=== PATIENT | female | born 1955 | race Two or more races ===

== ENCOUNTER 2020-04-25 13:49 | Outpatient (REF) | payer OTHER, SELFPAY ==
--- NOTE | 2020-04-25 | MR_ITS ---
EXAMINATION: MRI RIGHT SHOULDER WITHOUT CONTRAST CLINICAL INFORMATION: Internal derangement of the shoulder. COMPARISON: None. TECHNIQUE: MR images of the shoulder were obtained on a 1.5 Pau high-field strength scanner without intravenous contrast material. FINDINGS: ROTATOR CUFF: A full-thickness tear of the supraspinatus tendon measures 2.6 cm AP, extending into the anterior fibers of the infraspinatus tendon. The torn margin of the supraspinatus tendon is retracted medially by 2.5 cm to the level of the humeral head apex. The infraspinatus component of the tear is partial-thickness, articular-sided, sparing the majority of the tendon cross-section. The supraspinatus tendon tear extends anteriorly into the coracohumeral ligament. A partial-thickness articular-sided tear of the subscapularis tendon measures 0.8 cm craniocaudal and 0.8 cm longitudinal, involving at least two-thirds of the tendon thickness. There is mild grade 1 fatty replacement at the myotendinous junctions of the rotator cuff diffusely without significant loss of muscle bulk. BICEPS: Normal. CORACOACROMIAL ARCH: The undersurface of the acromion is curved with a small anterior subacromial spur. Mild acromioclavicular osteoarthritis. A small volume of fluid is present in the subacromial-subdeltoid bursa. LABRUM/CAPSULE: The labrum is diminutive posteriorly, likely due to a combination of developmental variation and superimposed degenerative fraying. This fraying is most notable superiorly. No discrete tears. Joint capsule is unremarkable. GLENOHUMERAL JOINT/MARROW: Small glenoid osteophytes are identified. There is mild nonuniform partial-thickness cartilage loss at the humeral head superomedially. Cortical irregularity and subcortical cystic changes of the tuberosities are due to overlying tendinopathy. IMPRESSION: 1. 2.6 x 2.5 cm (AP x longitudinal) full-thickness insertional tear of the supraspinatus tendon with involvement of the anterior undersurface fibers of the infraspinatus tendon as well as the coracohumeral ligament. No significant loss of muscle bulk. 2. Small partial-thickness articular-sided tear of the subscapularis tendon. 3. Small anterior subacromial spur. 4. Mild acromioclavicular and glenohumeral osteoarthritis.
== END 2020-04-25 13:50 | disposition home or self-care (01) ==
LOC: HO.MRI 13:49
PROVIDERS: PCP Internal Medicine; Visit Provider Orthopaedic Surgery
DX: M24.812 Other specific joint derangements of left shoulder, not elsewhere classified (principal)
CPT/HCPCS: 73221

== ENCOUNTER 2020-04-28 10:36 | Outpatient (REF) | payer OTHER, SELFPAY ==
[2020-04-28 12:42] LABS: Blood Urea Nitrogen 19 mg/dL (9-16); Estimated Glomerular Filt Rate > 60
== END 2020-04-28 10:37 | disposition home or self-care (01) ==
LOC: HO.CT 10:36
PROVIDERS: Internal Medicine Endocrinology, Diabetes & Metabolism; Visit Provider Internal Medicine
DX: D35.00 Benign neoplasm of unspecified adrenal gland (principal)
CPT/HCPCS: 82565; 84520

== ENCOUNTER 2020-05-02 09:45 | Outpatient (REF) | payer OTHER, SELFPAY ==
--- NOTE | 2020-05-02 09:48 | CT_ITS ---
EXAMINATION: CT ABDOMEN WITHOUT AND WITH CONTRAST CLINICAL INFORMATION: Adrenal protocol COMPARISON: None TECHNIQUE: Contiguous axial thin section helical images of the abdomen were performed before and after the administration of oral contrast and 85 mL of Ultravist 370 intravenous contrast. The data set was reformatted in the coronal and sagittal planes and reviewed on an independent workstation. This CT examination was performed using dose optimization techniques as appropriate, variously including the following: *Automated exposure control *Adjustment of mA and/or kV according to patient size (this includes techniques or standardized protocols for targeted exams where dose is matched to indication/reason for exam; i.e. extremities or head) *Use of iterative reconstruction technique DLP: 1229 mGy-cm FINDINGS: The lung bases are clear. The heart size is normal. The liver is normal size, shape and attenuation. Postcontrast no enhancing mass seen. There is a punctate hypodensity right hepatic lobe image 29/7 likely a tiny cyst. No intrahepatic ductal dilatation seen. The gallbladder is nonvisualized likely contracted. The spleen is unremarkable with small accessory splenule on image 31/7. The pancreas is unremarkable. On noncontrast exam, there is bilateral adrenal enlargement with mild lobulation of the right adrenal gland. It measure 27 and 10 Hounsfield units in the right and left adrenal gland. Immediate postcontrast images, there is mild enhancement with right adrenal gland measuring 88 Hounsfield unit and left adrenal gland measuring 62 Hounsfield units. On 10 minute delayed images, the right adrenal gland measures 50 Hounsfield units and the left adrenal gland measures 30 Hounsfield units. The right adrenal gland absolute washout measures 62.3% and relative washout of 43.2% suggestive of benign adenoma. On the left, the absolute washout is 61.5% and the relative washout is 51.6% suggestive of adenoma as well. There are no radiopaque renal calculi. Postcontrast, there is symmetrical bilateral nephrograms with likely a small punctate cyst at the corticomedullary junctions in the upper and lower poles of left kidney. There is good opacification of kidney, pelvis, and proximal ureters without any intraluminal filling defect. Visualized colon and small bowel loops are unremarkable. There is L2 and L3 posterior hardware for fusion. Visualized vertebral heights and alignment is normal. No lytic or sclerotic process seen. CT/CT abdomen wo/w con IMPRESSION: 1. Bilateral adrenal enlargement with probable right adrenal nodularity. Pre and postcontrast adrenal protocol reveals benign etiology such as adenoma on the right and normal pattern on the left. 2. The gallbladder is not visualized and likely surgically removed.
[2020-05-02] MEDS: iohexoL 350 MG/ML 100 ML INFUS..BTL IV (11:52)
== END 2020-05-02 09:46 | disposition home or self-care (01) ==
LOC: HO.CT 09:45
PROVIDERS: Visit Provider Internal Medicine
DX: D35.00 Benign neoplasm of unspecified adrenal gland (principal)
CPT/HCPCS: 74170

== ENCOUNTER 2020-05-04 10:44 | Outpatient (REF) | payer OTHER, SELFPAY ==
--- NOTE | 2020-05-04 11:31 | PM.OP ---
Brief Operative Note Date of procedure: 05/04/20 Surgeon: Shell Garg, DO This is doctor Shell Garg. This is an ultrasound-guided fine-needle aspiration report. Patient name: Sabrina Mcqueen : 1955 Date of Examination: 05/04/2020 Referring Physician Is: PCP Indication: Multinodular Thyroid Porcedure: Procedure was explained to the patient. Alternatives, the risk and benefits were discussed. Written consent was obtained. A time-out was also obtained. After sterile preparation, fine-needle aspiration of a Left Mid Pole 2.4 cm thyroid nodule was performed using direct ultrasound guidance to confirm accurate needle placement. Four aspirations were made using 27 gauge needles. Samples were submitted for cytology. 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 The patient tolerated the procedure well. Aftercare instructions were provided. Impression: Uncomplicated fine needle aspiration biopsy of a L Mid Pole 2.4 cm thyroid nodule under ultrasound guideance. Estimated blood loss (mL): 0
== END 2020-05-04 10:45 | disposition home or self-care (01) ==
LOC: HO.US 10:44
PROVIDERS: PCP Internal Medicine; Visit Provider Internal Medicine
DX: M75.102 Unspecified rotator cuff tear or rupture of left shoulder, not specified as traumatic (principal); E04.2 Nontoxic multinodular goiter
CPT/HCPCS: 10005; 88172; 88173; 99212

== ENCOUNTER → 2020-05-31 08:58 | Outpatient (BNVA) | payer OTHER, SELFPAY | PROVIDERS: PCP Internal Medicine; Referring Provider Internal Medicine; Visit Provider Internal Medicine | DX: Z76.89 Persons encountering health services in other specified circumstances (principal) ==

== ENCOUNTER 2020-06-06 13:10 | Outpatient (REF) | payer OTHER, SELFPAY | END 2020-06-06 13:11 | disposition home or self-care (01) | LOC: HO.LAB 13:10 | PROVIDERS: Visit Provider Internal Medicine | DX: Z20.828 Contact with and (suspected) exposure to other viral communicable diseases (principal) | CPT/HCPCS: C9803; U0003 ==

== ENCOUNTER 2020-07-14 10:05 | Outpatient (REF) | payer OTHER, SELFPAY ==
--- NOTE | 2020-07-14 10:10 | XR_ITS ---
EXAMINATION: XR LUMBOSACRAL SPINE CLINICAL INFORMATION: Low back pain COMPARISON: Previous x-ray December 2012 and MRI of the lumbar spine most recent August 2017 TECHNIQUE: Three views of the lumbosacral spine. FINDINGS: There is mild curvature of the lumbar sacral spine to the right. Bone alignment is otherwise normal. No fracture or dislocation is seen. There is posterior fusion hardware with interpedicular screws and disc interspace at L2-L3. Orthopedic hardware is intact. Disc spaces are otherwise normal. There is lower lumbar spine facet arthritis. XR/XR lumbar spine 2-3V IMPRESSION: Postoperative change at L2-L3. Mild curvature of the lumbar sacral spine to the right. Lower lumbar spine facet arthritis.
== END 2020-07-14 10:06 | disposition home or self-care (01) ==
LOC: HO.XRAY 10:05
PROVIDERS: Visit Provider Internal Medicine
DX: M54.5 Low back pain (principal)
CPT/HCPCS: 72100

== ENCOUNTER 2020-07-25 10:39 | Day surgery (SDC) | payer OTHER, SELFPAY ==
[2020-07-13 14:11] VITALS: BMI 33.0
--- NOTE | 2020-07-18 11:01 | P.CONAN_ITS ---
Documented by User: Catherine Anand 07/18/20 11:07 HPI - Anesthesia Eval Consult details Narrative: 64yo F for Left Arthroscopic Rotator Cuff Repair s/p Right shoulder 07/2018 with GA-LMA 4, brachial plexus block PMFSH Past Medical History Medical History Anxiety Asthma Depression Fibromyalgia Low back pain Non-toxic multinodular goiter Otitis externa Right ear pain Rotator cuff tear, left Throat pain Family History Family History Father Diabetes Mother Medical history unknown Surgical History Surgical History History of cholecystectomy History of hysterectomy History of laminectomy (~2009) Status post right rotator cuff repair (~07/26/18) Social History Social History Smoking Status: Never smoker Second Hand Smoke Exposure: No Use of substances other than those prescribed or required for medical reasons: No Advance Directives: No Advance Directives Information Provided: No Advance Directives on File: No Current occupational status: unemployed Current occupation: right handed Meds Allergies Allergy/AdvReac Type Severity Reaction Status Date / Time codeine [Tylenol-Codeine #3] Allergy Intermediate Rash Verified 07/16/20 12:38 morphine Allergy Intermediate rash and Verified 07/16/20 12:38 itching Nubain Allergy Intermediate Rash Verified 07/16/20 12:38 oxycodone [Percocet] Allergy Intermediate Rash Verified 07/16/20 12:38 propoxyphene Allergy Intermediate Rash Verified 07/16/20 12:38 [From Darvocet-N 100] tramadol [Ultram] Allergy Intermediate Rash Verified 07/16/20 12:38 ibuprofen [From Motrin] Allergy Mild RASH Verified 07/16/20 12:38 montelukast [Singulair] Allergy Unknown Unknown Verified 07/16/20 12:38 Home Medications Medication Instructions Recorded Confirmed Type ergocalciferol (vitamin D2) 1,250 1,250 mcg PO QWEEK 05/26/20 07/13/20 History mcg (50,000 unit) capsule loratadine 10 mg tablet 10 mg PO DAILY 05/26/20 07/13/20 History lorazepam 0.5 mg tablet 0.5 mg PO TID PRN 05/26/20 07/13/20 History methocarbamol 750 mg tablet 750 mg PO TID PRN 05/26/20 07/13/20 History pregabalin 150 mg capsule 150 mg PO TID 05/26/20 07/13/20 History tizanidine 4 mg tablet 4 mg PO TID 05/26/20 07/13/20 History albuterol sulfate 90 mcg/actuation 2 puff INHALATION Q6H PRN g 05/31/20 07/13/20 History aerosol inhaler albuterol sulfate 2.5 mg CONTINUOUS NEBULIZATION Q6H 07/12/20 07/12/20 History PRN ml hydroxyzine HCl 25 mg tablet 25 mg PO TID PRN 07/12/20 07/13/20 History nortriptyline 25 mg capsule 25 mg PO BEDTIME cap 07/12/20 07/13/20 History Exam Exam Date and Time: July 18, 2020 1101 Height,Weight and Vital Signs: Height 5 ft 6 in Weight 92.986 kg Pertinent Lab Results Pertinent Lab Results: Laboratory Tests 07/19/19 03/24/20 04/28/20 09:30 10:32 11:38 WBC 5.1 Hgb 14.4 Hct 43.0 Plt Count 240 Sodium 136 Potassium 4.8 Chloride 100 BUN 19 H Creatinine 0.80 Laboratory Tests 03/24/20 10:32 Free T4 1.02 TSH 3rd Generation 1.56 Assessment and Plan Assessment Anesthesia Assessment: Chart Reviewed Documented by User: Familia Castrejon MD 07/25/20 11:09 [facility] Past Medical History Medical History Anxiety Asthma Depression Fibromyalgia Low back pain Non-toxic multinodular goiter Otitis externa Right ear pain Rotator cuff tear, left Throat pain Family History Family History Father Diabetes Mother Medical history unknown Surgical History Surgical History History of cholecystectomy History of hysterectomy History of laminectomy (~2009) Status post right rotator cuff repair (~07/26/18) Social History Social History Smoking Status: Never smoker Second Hand Smoke Exposure: No Use of substances other than those prescribed or required for medical reasons: No Advance Directives: No Advance Directives Information Provided: No Advance Directives on File: No Current occupational status: unemployed Current occupation: right handed Meds Allergies Allergy/AdvReac Type Severity Reaction Status Date / Time codeine [Tylenol-Codeine #3] Allergy Intermediate Rash Verified 07/16/20 12:38 morphine Allergy Intermediate rash and Verified 07/16/20 12:38 itching Nubain Allergy Intermediate Rash Verified 07/16/20 12:38 oxycodone [Percocet] Allergy Intermediate Rash Verified 07/16/20 12:38 propoxyphene Allergy Intermediate Rash Verified 07/16/20 12:38 [From Darvocet-N 100] tramadol [Ultram] Allergy Intermediate Rash Verified 07/16/20 12:38 ibuprofen [From Motrin] Allergy Mild RASH Verified 07/16/20 12:38 montelukast [Singulair] Allergy Unknown Unknown Verified 07/16/20 12:38 Home Medications Medication Instructions Recorded Confirmed Type ergocalciferol (vitamin D2) 1,250 1,250 mcg PO QWEEK 05/26/20 07/13/20 History mcg (50,000 unit) capsule loratadine 10 mg tablet 10 mg PO DAILY 05/26/20 07/13/20 History lorazepam 0.5 mg tablet 0.5 mg PO TID PRN 05/26/20 07/13/20 History methocarbamol 750 mg tablet 750 mg PO TID PRN 05/26/20 07/13/20 History pregabalin 150 mg capsule 150 mg PO TID 05/26/20 07/13/20 History tizanidine 4 mg tablet 4 mg PO TID 05/26/20 07/13/20 History albuterol sulfate 90 mcg/actuation 2 puff INHALATION Q6H PRN g 05/31/20 07/13/20 History aerosol inhaler albuterol sulfate 2.5 mg CONTINUOUS NEBULIZATION Q6H 07/12/20 07/12/20 History PRN ml hydroxyzine HCl 25 mg tablet 25 mg PO TID PRN 07/12/20 07/13/20 History nortriptyline 25 mg capsule 25 mg PO BEDTIME cap 07/12/20 07/13/20 History Exam Airway Mallampati Class: I TM Dist: >3cm Neck ROM: Full Loose/Missing/Broken Teeth: No Heart: RRR Lungs: NL Other: AO Assessment and Plan Assessment Anesthesia Assessment: Anesthesia Plan Discussed and Chart Reviewed Final Anesthetic Review NPO: Yes ASA Class: III Final Preanesthetic Review: No Changes in Pt Med Stat, Meds/Allgs Chart Reviewed, Consent Obtained/Reviewed and Anes Risks/Benef Reviewed Patient Risk: Intermediate Procedure Risk: Intermediate Anesthetic Plan Anesthetic Plan: GA and Regional Block Disposition: Standard PACU
[2020-07-18 11:03] VITALS: BMI 33.0
[2020-07-25] VITALS (9 sets, daily range): BP systolic 121–155; BP diastolic 66–95; PULSE 78–87; RESP 16; TEMP 36.2–37.1; O2SAT 96–99
--- NOTE | 2020-07-25 11:44 | PC.NURSE ---
nerve block being performed with no pre-medication. italian interpretor by bedside.
--- NOTE | 2020-07-25 12:23 | MHC.SHP ---
Pre-Procedural Eval Section A The patient is an INPATIENT: No Changes since office visit: Yes Patient answered all questions; No Cold of Flu in the past 2 weeks, No New Medical Problems and No Changes in Medication The History & Physical has been completed within 30 days and I have reviewed it.: Yes Section B Chief Complaint: rotator cuff left Allergies: Allergies Allergy/AdvReac Type Severity Reaction Status Date / Time codeine [Tylenol-Codeine #3] Allergy Intermediate Rash Verified 07/16/20 12:38 morphine Allergy Intermediate rash and Verified 07/16/20 12:38 itching Nubain Allergy Intermediate Rash Verified 07/16/20 12:38 oxycodone [Percocet] Allergy Intermediate Rash Verified 07/16/20 12:38 propoxyphene Allergy Intermediate Rash Verified 07/16/20 12:38 [From Darvocet-N 100] tramadol [Ultram] Allergy Intermediate Rash Verified 07/16/20 12:38 ibuprofen [From Motrin] Allergy Mild RASH Verified 07/16/20 12:38 montelukast [Singulair] Allergy Unknown Unknown Verified 07/16/20 12:38 Plan I have reviewed the history and physical and performed a pertinent physical examination on my patient. No changes have occurred unless specified.
[2020-07-25] MEDS: ceFAZolin Sodium/Dextrose,Iso 2 GM/50 ML PIGGYBACK IV (13:02)
[2020-07-25] MEDS: Lactated Ringers 1,000 ML 100 ML IVCONT (13:02)
--- NOTE | 2020-07-25 15:45 | P.BOP_ITS ---
Brief Operative Note Date of Service: 07/25/20 Pre-op diagnosis: right shoulder RTC tear Post-op diagnosis: same Procedure: rtc repair right shoulder Implants: rivers [employer] nephew helacoil x 3 Surgeon: Dheeraj Velázquez MD Anesthesia: GETA and regional [employer] Supervisor: Noreen Lemons Estimated blood loss (mL): 25 Tourniquet time (min): 0 IV fluids (mL): 1,200 Pathology: none sent Condition: stable Disposition: PACU
--- NOTE | 2020-07-25 17:49 | PC.NURSE ---
assisted patient to dress at bedside. iv removed. no complaints of pain. left shoulder immobilizer in place secure. educated in use of pendulum exercises once regional block has resolved.
--- NOTE | 2020-07-28 13:43 | OP_ITS ---
SURGEON: Dheeraj Velázquez MD INDICATIONS: This is a 64-year-old woman with a full-thickness rotator cuff tear on the right, consented to undergo operative intervention. PREOPERATIVE DIAGNOSIS: Right shoulder rotator cuff tear. POSTOPERATIVE DIAGNOSIS: Right shoulder rotator cuff tear. PROCEDURE PERFORMED: Right rotator cuff repair. ESTIMATED BLOOD LOSS: COMPLICATIONS: ANESTHESIA: ASSISTANTS: SPECIMENS: BLOOD LOSS: 25 mL. FLUIDS: 1200. PROCEDURE IN DETAIL: The patient was brought to the operating room, placed in the beach chair position. All bony prominences were well padded and she was prepped and draped in standard sterile fashion. Time-out was called to identify proper site, proper procedure, proper surgeon. IV antibiotics per weight was administered. I began by making a stab incision posterolaterally and placed my blunt trocar atraumatically into the glenohumeral joint. I insufflated the joint and established an outside-in anterosuperior portal. Biceps and biceps anchor were all intact. Subscapularis was intact. Cartilage surfaces of the humerus and the glenoid were intact. There was some mild fraying in the central portion of the glenoid, and labrum and gutters were clean. There was evidence of undersurface full-thickness rotator cuff tearing. I then entered the subacromial space and established a direct lateral portal. I then removed the bursa and examined what was a supraspinatus full-thickness tear. It was mobile. I burred down the bare area to bleeding bone and then used one medial Healicoil while and two lateral Healicoil creating a double row repair. I also added an additional fiber tape to the repair, so it was tied down only laterally. I used a combination of scorpion and bird's beak to establish this; and the once my lateral row had been established, I examined the repair. I was very happy with the compression and the coverage of the bare area. Therefore, I then debrided a 5 mm undersurface of the acromion and removed all instrumentation. Portals were closed with nylon. Patient was placed in sterile dressing and an abduction sling, extubated, and brought to the recovery room in stable condition. There were no known complications. MILL OPERATOR HEAD: KRYSTYNA Morales GRAFT OR IMPLANTS: [employer] Healicoil x3. Dheeraj Velázquez MD NE/MODL / [id number]
--- NOTE | 2020-09-18 15:24 | W.PM.OPN ---
Operative Note Operative Note Date of Service: 07/25/20 Narrative: addendum: Pre op diagnosis: LEFT rotator cuff tear post op diagnosis: same Procedure performed: LEFT rotator cuff repair
== END 2020-07-25 17:54 | disposition home or self-care (01) ==
PROVIDERS: PCP Internal Medicine; Visit Provider Orthopaedic Surgery
PROC: (CPT 29827; principal; 2020-07-25 12:10)
DX: M75.102 Unspecified rotator cuff tear or rupture of left shoulder, not specified as traumatic (principal); M19.012 Primary osteoarthritis, left shoulder; M79.7 Fibromyalgia; J45.909 Unspecified asthma, uncomplicated; F32.9 Major depressive disorder, single episode, unspecified; Z79.899 Other long term (current) drug therapy; Z79.51 Long term (current) use of inhaled steroids; Z88.8 Allergy status to other drugs, medicaments and biological substances
CPT/HCPCS: 29827; C1713; J0171; J0690; J1100; J2250; J2370; J3010

== ENCOUNTER → 2020-07-26 09:14 | Outpatient (BNVA) | payer OTHER, SELFPAY | PROVIDERS: PCP Internal Medicine; Visit Provider Physician Assistant | DX: M75.102 Unspecified rotator cuff tear or rupture of left shoulder, not specified as traumatic (principal) | CPT/HCPCS: 99212 ==

== ENCOUNTER → 2020-08-10 09:45 | Outpatient (BNVA) | payer OTHER, SELFPAY | PROVIDERS: PCP Internal Medicine; Visit Provider Physician Assistant | DX: Z47.89 Encounter for other orthopedic aftercare (principal) | CPT/HCPCS: 99212 ==

== ENCOUNTER 2020-08-25 14:38 | Outpatient (REF) | payer OTHER, SELFPAY | END 2020-08-25 14:39 | disposition home or self-care (01) | LOC: HO.HOSX 14:38 | PROVIDERS: PCP Internal Medicine; Visit Provider Physician Assistant | DX: M75.102 Unspecified rotator cuff tear or rupture of left shoulder, not specified as traumatic (principal) | CPT/HCPCS: 99212 ==

== ENCOUNTER 2020-08-25 14:56 | Outpatient (REF) | payer OTHER, SELFPAY ==
--- NOTE | ~2020-08-25 | XR_ITS ---
EXAMINATION: XR SHOULDER, LEFT CLINICAL INFORMATION: Rotator cuff tear COMPARISON: Previous x-ray June 2019 and left shoulder MRI April 2020 TECHNIQUE: AP external rotation, Grashey, scapular Y, and axillary views of the left shoulder. FINDINGS: Bone alignment is normal. No fracture or dislocation is seen. There are 2 new surgical tacks or anchors projecting over the left humeral head and acromion. The glenohumeral joint is normal. There is arthritis at the acromioclavicular joint. Soft tissues are unremarkable. XR/XR shoulder LT min 2V IMPRESSION: 2 new surgical tacks or anchors projecting over the humeral head and acromion. Arthritis at the acromioclavicular joint.
== END 2020-08-25 14:57 | disposition home or self-care (01) ==
LOC: HO.XRAY 14:56
PROVIDERS: PCP Internal Medicine; Visit Provider Physician Assistant
DX: M75.102 Unspecified rotator cuff tear or rupture of left shoulder, not specified as traumatic (principal)
CPT/HCPCS: 73030

== ENCOUNTER → 2020-09-07 12:29 | Outpatient (BNVA) | payer OTHER, SELFPAY | PROVIDERS: Visit Provider Physician Assistant | DX: M75.102 Unspecified rotator cuff tear or rupture of left shoulder, not specified as traumatic (principal); M12.812 Other specific arthropathies, not elsewhere classified, left shoulder | CPT/HCPCS: 99212 ==

== ENCOUNTER 2020-09-12 06:04 | Day surgery (SDC) | payer OTHER, SELFPAY ==
--- NOTE | 2020-09-11 10:11 | HO.ANESPROP2 ---
Documented by User: Catherine Anand 09/11/20 10:15 HPI - Anesthesia Eval Consult details Narrative: 64yo F for Left Arthroscopic Rotator Cuff Repair, revision multiple narcotic allergies - rash s/p Arthroscopic Rotator Cuff Repair 07/25/20 with GA-ETT 7 and interscalene block PMFSH Active Problems Active Problems: All Active Problems (Updated 09/07/20 @ 21:35 by Henrique Soler MD) Asthma (Acute) Rotator cuff tear arthropathy of left shoulder (Acute) Low back pain (Acute) Throat pain (Acute) Right ear pain (Acute) Otitis externa (Acute) Acute sinusitis (Acute) Rotator cuff tear, left (Acute) Non-toxic multinodular goiter (Acute) Anxiety (Acute) Past Medical History Medical History Anxiety Asthma Depression Fibromyalgia Low back pain Non-toxic multinodular goiter Otitis externa Right ear pain Rotator cuff tear, left Throat pain Family History Family History Father Diabetes Mother Medical history unknown Surgical History Surgical History History of cholecystectomy History of hysterectomy History of laminectomy (~2009) Status post right rotator cuff repair (~07/26/18) Social History Social History Smoking Status: Never smoker Second Hand Smoke Exposure: No Use of substances other than those prescribed or required for medical reasons: No Advance Directives: No Advance Directives Information Provided: Yes Current occupational status: unemployed Current occupation: right handed Meds Allergies Allergy/AdvReac Type Severity Reaction Status Date / Time codeine [Tylenol-Codeine #3] Allergy Intermediate Rash Verified 09/12/20 06:15 morphine Allergy Intermediate rash and Verified 09/12/20 06:15 itching Nubain Allergy Intermediate Rash Verified 09/12/20 06:15 oxycodone [Percocet] Allergy Intermediate Rash Verified 09/12/20 06:15 propoxyphene Allergy Intermediate Rash Verified 09/12/20 06:15 [From Darvocet-N 100] tramadol [Ultram] Allergy Intermediate Rash Verified 09/12/20 06:15 ibuprofen [From Motrin] Allergy Mild RASH Verified 09/12/20 06:15 montelukast [Singulair] Allergy Unknown Unknown Verified 09/12/20 06:15 Home Medications Medication Instructions Recorded Confirmed Last Taken Type loratadine 10 mg tablet 10 mg PO DAILY 05/26/20 07/13/20 Unknown History methocarbamol 750 mg tablet 750 mg PO TID PRN 05/26/20 07/13/20 Unknown History tizanidine 4 mg tablet 4 mg PO TID 05/26/20 07/13/20 Unknown History hydroxyzine HCl 25 mg tablet 25 mg PO TID PRN 07/12/20 07/13/20 Unknown History Exam Exam Date and Time: September 11, 2020 1011 Pertinent Lab Results Pertinent Lab Results: Laboratory Tests 03/24/20 04/28/20 10:32 11:38 Sodium 136 Potassium 4.8 Chloride 100 BUN 19 H Creatinine 0.80 Assessment and Plan Assessment Anesthesia Assessment: Chart Reviewed Documented by User: Familia Castrejon MD 09/12/20 08:55 PMFSH Past Medical History Medical History Anxiety Asthma Depression Fibromyalgia Low back pain Non-toxic multinodular goiter Otitis externa Right ear pain Rotator cuff tear, left Throat pain Family History Family History Father Diabetes Mother Medical history unknown Surgical History Surgical History History of cholecystectomy History of hysterectomy History of laminectomy (~2009) Status post right rotator cuff repair (~07/26/18) Social History Social History Smoking Status: Never smoker Second Hand Smoke Exposure: No Use of substances other than those prescribed or required for medical reasons: No Advance Directives: No Advance Directives Information Provided: Yes Current occupational status: unemployed Current occupation: right handed Meds Allergies Allergy/AdvReac Type Severity Reaction Status Date / Time codeine [Tylenol-Codeine #3] Allergy Intermediate Rash Verified 09/12/20 06:15 morphine Allergy Intermediate rash and Verified 09/12/20 06:15 itching Nubain Allergy Intermediate Rash Verified 09/12/20 06:15 oxycodone [Percocet] Allergy Intermediate Rash Verified 09/12/20 06:15 propoxyphene Allergy Intermediate Rash Verified 09/12/20 06:15 [From Darvocet-N 100] tramadol [Ultram] Allergy Intermediate Rash Verified 09/12/20 06:15 ibuprofen [From Motrin] Allergy Mild RASH Verified 09/12/20 06:15 montelukast [Singulair] Allergy Unknown Unknown Verified 09/12/20 06:15 Home Medications Medication Instructions Recorded Confirmed Last Taken Type loratadine 10 mg tablet 10 mg PO DAILY 05/26/20 07/13/20 Unknown History methocarbamol 750 mg tablet 750 mg PO TID PRN 05/26/20 07/13/20 Unknown History tizanidine 4 mg tablet 4 mg PO TID 05/26/20 07/13/20 Unknown History hydroxyzine HCl 25 mg tablet 25 mg PO TID PRN 07/12/20 07/13/20 Unknown History Exam Airway Mallampati Class: II TM Dist: >3cm Neck ROM: Full Loose/Missing/Broken Teeth: Yes Heart: RRR, PACs Lungs: NL Assessment and Plan Assessment Anesthesia Assessment: Anesthesia Plan Discussed and Chart Reviewed Final Anesthetic Review NPO: Yes ASA Class: III Final Preanesthetic Review: No Changes in Pt Med Stat, Meds/Allgs Chart Reviewed, Consent Obtained/Reviewed and Anes Risks/Benef Reviewed Patient Risk: High Procedure Risk: Intermediate Anesthetic Plan Anesthetic Plan: GA and Regional Block Disposition: Standard PACU
[2020-09-12] VITALS (13 sets, daily range): BP systolic 98–164; BP diastolic 54–81; PULSE 66–92; RESP 16–20; TEMP 35.8–37.3; O2SAT 94–99; BMI 36.3
--- NOTE | ~2020-09-12 | XR_ITS ---
EXAMINATION: XR SHOULDER, LEFT CLINICAL INFORMATION: Fall, trauma, pain COMPARISON: Radiographs left shoulder 08/25/2020 TECHNIQUE: Left shoulder is imaged portably in 2 views. FINDINGS: There is no visible fracture or dislocation. Again, orthopedic anchors are seen overlying the shoulder. There is elevation of the humeral head, new since prior imaging 08/25/2020. There is uncertain if this is related to positioning or related to rotator cuff degeneration. The acromioclavicular alignment is normal. XR/XR shoulder LT 1V IMPRESSION: 1. Elevation humeral head, new since prior imaging 08/25/2020. It is uncertain if this is related to the portable positioning or rotator cuff degeneration. 2. No fracture or dislocation.
[2020-09-12] MEDS: Lactated Ringers 1,000 ML 100 ML IVCONT (06:50)
--- NOTE | 2020-09-12 07:33 | MHC.SHP ---
Pre-Procedural Eval Section A The patient is an INPATIENT: No Changes since office visit: Yes New Medical Problems The History & Physical has been completed within 30 days and I have reviewed it.: Yes Section B Chief Complaint: rotator cuff pain Allergies: Allergies Allergy/AdvReac Type Severity Reaction Status Date / Time codeine [Tylenol-Codeine #3] Allergy Intermediate Rash Verified 09/12/20 06:15 morphine Allergy Intermediate rash and Verified 09/12/20 06:15 itching Nubain Allergy Intermediate Rash Verified 09/12/20 06:15 oxycodone [Percocet] Allergy Intermediate Rash Verified 09/12/20 06:15 propoxyphene Allergy Intermediate Rash Verified 09/12/20 06:15 [From Darvocet-N 100] tramadol [Ultram] Allergy Intermediate Rash Verified 09/12/20 06:15 ibuprofen [From Motrin] Allergy Mild RASH Verified 09/12/20 06:15 montelukast [Singulair] Allergy Unknown Unknown Verified 09/12/20 06:15 Plan I have reviewed the history and physical and performed a pertinent physical examination on my patient. No changes have occurred unless specified.
--- NOTE | 2020-09-12 10:34 | P.BOP_ITS ---
Brief Operative Note Date of Service: 09/12/20 Pre-op diagnosis: left rtc tear Post-op diagnosis: same Procedure: revision left rotator cuff tear Implants: rivers and nephew helacoil 5.0 x2 Surgeon: Dheeraj Velázquez MD Anesthesia: GETA and regional Cold Press Operator: Sajan Cook Estimated blood loss (mL): 20 Tourniquet time (min): 0 IV fluids (mL): 1,000 Pathology: none sent Condition: stable Disposition: PACU
--- NOTE | 2020-09-12 14:35 | P.F2F_ITS ---
Service Date Service Date: 09/12/20 Reasons for Services Reason for mcfp: postoperative assessment and/or care, medication management and other (ADLs) Reason for physical therapy: home safety and mobility, therapeutic exercises, restore joint function, gait/transfer training, ADL training and energy conservation Reason for occupational therapy: home safety and mobility, therapeutic exercises, restore joint function, gait/transfer training, ADL training and energy conservation Overseeing Care: Dheeraj Velázquez Homebound: Leaving the home is medically contraindicated at this time without the asist of a device and/or another person due th the listed conditions above and below. Reason homebound: unsteady gait / fall risk, poor balance / fall risk and unable to drive Homebound supporting statement: Pt. is considered home bound due to recent surgery. Unable to drive, poor balance, poor gait mechanics. Certification: Based on the above findings, I certify that this patient is confined to the home and needs intermittent mcfp care, physical therapy and/or speech therapy, or continues to need occupational therapy. The patient is under my care, and I have initiated the establishment of the plan of care. The patient will be followed by a physician who will periodically review the plan of care.
--- NOTE | 2020-09-12 14:35 | PM.EVENT ---
Event Note Date of Service: 09/12/20 Event Note: extended stay for pain control and PT/OT eval. s/p RTC repair
--- NOTE | 2020-09-12 15:45 | MHC.CM.PN ---
Per Ortho/Ta Lindsey, Patient is likely to dc to home tomorrow. CM spoke with ESTHER ZAFAR/Agatha at [phone], who authorized [facility] to provide PT & RN in the home at time of dc ([facility] is aware). Requested info has been faxed to Agatha at [phone] and will be uploaded into [employer]. CM will follow for dc planning.
[2020-09-12] MEDS: Nortriptyline HCl 25 MG CAPSULE PO (20:42)
[2020-09-12] MEDS: Topiramate 25 MG TABLET PO (20:42)
[2020-09-12] MEDS: Pregabalin 150 MG CAPSULE PO (20:42)
[2020-09-12] MEDS: TiZANidine HCL 4 MG TABLET PO (20:42)
[2020-09-12] MEDS: LORazepam 0.5 MG TABLET PO (23:06)
[2020-09-13] VITALS: BP 152/74; PULSE 89; RESP 19; TEMP 36.7; O2SAT 96
[2020-09-13 04:00] VITALS: BP 157/85; PULSE 82; RESP 19; TEMP 36.9; O2SAT 94
[2020-09-13] MEDS: NaPROXEN 500 MG TABLET PO (05:28)
[2020-09-13 07:39] VITALS: BP 150/67; PULSE 85; RESP 20; TEMP 37.1; O2SAT 97
--- NOTE | 2020-09-13 07:51 | P.DS_ITS ---
DS: Providers Provider Date of Service: 09/13/20 Primary care physician: Henrique Soler MD DS: Diagnosis Discharge Diagnosis (1) Rotator cuff tear, left: Status: Acute Problem details: Ms. Mcqueen is a 64 yo female who underwent Left shoulder Rotator cuff repair about 6-8 weeks ago. She has had multiple falls since her surgery, and one of her falls she has landed directly on the left shoulder and stretched out the arm. She was seen in the office, xrays obtained and demonstrated a failed anchor. She was then booked for Revision left RTC repair. (2) Multiple falls: Status: Acute DS: Medications Discharge Medications Home Medications: Home Medications Medication Instructions Recorded Confirmed loratadine 10 mg tablet 10 mg PO DAILY 05/26/20 09/12/20 tizanidine 4 mg tablet 4 mg PO TID 05/26/20 09/12/20 Previous Rx's Medication Instructions Recorded meloxicam 15 mg tablet 15 mg PO DAILY PRN 30 Days #30 tab 04/11/20 pantoprazole 40 mg tablet,delayed 40 mg PO DAILY #90 tab 06/12/20 release bupropion HCl 100 mg tablet,12 hr 200 mg PO BID #112 tab 08/04/20 sustained-release citalopram 20 mg tablet 20 mg PO DAILY #28 tab 08/04/20 lorazepam 0.5 mg tablet 0.5 mg PO TID PRN 30 Days #90 tab 08/24/20 pregabalin 150 mg capsule 150 mg PO TID 30 Days #90 cap 08/24/20 albuterol sulfate 2.5 mg CONTINUOUS NEBULIZATION Q6H 09/07/20 PRN 30 Days #120 vial albuterol sulfate 90 mcg/actuation 2 puff INHALATION Q6H PRN 30 Days 09/07/20 aerosol inhaler #8.5 g ergocalciferol (vitamin D2) 1,250 1,250 mcg PO QWEEK #4 cap 09/08/20 mcg (50,000 unit) capsule nortriptyline 25 mg capsule 25 mg PO BID #56 cap 09/08/20 DS: Summary Hospital Course Hospital Course: The patient underwent a successful Revision left shoulder RTC repair, was transferred to PACU and then to the floor to recover. During their stay, their vitals were stable, afebrile at 98.7. POD 1 she received PT services and it was recommended she be transferred to [facility] due to her multiple fall history. Prior to discharge, dressing and incision clean dry and intact. She will be transferred to [facility]. Time Spent with Patient Time attestation: Total time spent providing and/or coordinating discharge services: Discharge coordination time: Greater than 30 minutes Physical Exam Vital Signs: Vital Signs: Last Vital Signs Temp 98.7 F 09/13/20 07:39 Pulse 85 09/13/20 07:39 Resp 20 09/13/20 07:39 BP 150/67 H 09/13/20 07:39 Pulse Ox 97 09/13/20 07:39 Body Mass Index 36.3 Const: General: cooperative, healthy appearing and no acute distress Resp: Effort & Inspection: normal respiratory effort and able to speak in complete sentences Cardio: Rate: regular rate Peripheral pulses: Peripheral pulses 2+ throughout GI: Palpation (GI): Soft to palpation Skin: General skin exam: no rashes or lesions noted Extrem: Other: Left shoulder bandage intact, mild swelling. Sensation intact. Pulses present. Discharge Plan Discharge Patient Disposition: Home Health Service Referrals: [facility] [Outside] Sajan Cook PA-C [Physician Entry Level Accounting Clerk] - (09/21/20 1:30) Discharge Medications: Continued meloxicam 15 mg tablet 15 mg PO DAILY PRN (Reason: joint pain) 30 Days Qty: 30 RF: 3 pantoprazole 40 mg tablet,delayed release (DR/EC) 40 mg PO DAILY Qty: 90 RF: 12 citalopram 20 mg tablet 20 mg PO DAILY Qty: 28 RF: 2 bupropion HCl 100 mg tablet sustained-release 12 hr 200 mg PO BID Qty: 112 RF: 2 pregabalin 150 mg capsule 150 mg PO TID 30 Days Qty: 90 RF: 0 lorazepam 0.5 mg tablet 0.5 mg PO TID PRN (Reason: anxiety) 30 Days Qty: 90 RF: 0 albuterol sulfate 2.5 mg /3 mL (0.083 %) solution for nebulization 2.5 mg continuous nebulization Q6H PRN (Reason: shortness of breath or wheezing) 30 Days Qty: 120 RF: 11 albuterol sulfate 90 mcg/actuation HFA aerosol inhaler 2 puff inhalation Q6H PRN (Reason: shortness of breath or wheezing) 30 Days Qty: 8.5 RF: 12 ergocalciferol (vitamin D2) [Vitamin D2] 1,250 mcg (50,000 unit) capsule 1,250 mcg PO QWEEK Qty: 4 RF: 3 nortriptyline 25 mg capsule 25 mg PO BID Qty: 56 RF: 3 loratadine 10 mg tablet 10 mg PO DAILY RF: 0 tizanidine 4 mg tablet 4 mg PO TID RF: 0 Discharge Orders: Discharge Order (Routine); Ordered 09/13/20 Ordered By: Sajan Cook Activity Restrictions/Additional Instructions: * Wear sling at all times * Pendelums three times a day * No lifting * Elbow and wrist ROM ok DO NOT TAKE TIZANIDINE AND LORAZEPAM TOGETHER DUE TO POOR BALANCE * Follow up with orthopedics in 2 weeks
[2020-09-13] MEDS: Nortriptyline HCl 25 MG CAPSULE PO (09:00)
[2020-09-13] MEDS: Topiramate 25 MG TABLET PO (09:00)
[2020-09-13] MEDS: buPROPion HCl XL 150 MG TAB.ER.24H 450 MG PO (09:00)
[2020-09-13] MEDS: Escitalopram Oxalate 10 MG TABLET PO (09:00)
[2020-09-13] MEDS: Loratadine 10 MG TABLET PO (09:01)
[2020-09-13] MEDS: TiZANidine HCL 4 MG TABLET PO (09:01)
[2020-09-13] MEDS: Omeprazole 20 MG CAPSULE.DR PO (09:01)
[2020-09-13] MEDS: Pregabalin 150 MG CAPSULE PO (09:01)
--- NOTE | 2020-09-13 10:15 | P.OP_ITS ---
Operative Note Operative Note Date of Service: 09/12/20 Narrative: Pre-op diagnosis: left_ rotator cuff tear Post-op diagnosis: same Procedure: ___left____ rotator cuff repair Implants: smith and nephew helacoil x 2___ Information Assoc: Noreen Lemons___ Anesthesia: GETA and regional Estimated blood loss (mL): 20 IV fluids (mL): 1000 Complications: none known Condition: stable Disposition: PACU Indications: Sabrina underwent left rtc repair approximately 6 weeks ago. She presented after a fall on an outstretched hand and imaging demonstrated screw cutout. She was taken to the operating room to undergo revision rtc repair Procedure in detail: Patient was brought to the operating room and placed the the beach chair position. All bony prominences were well padded and he was prepped and draped in standard sterile fashion. A time out was called to identify proper site, proper procedure and proper surgeon. IV antibiotics per weight were administered. I began by making a posterolateral stab incision with a 15 blade. A blunt trochar was placed into the glenohumeral joint and I insufflated the joint with saline and a 30 degree arthroscope was placed. I established an outside- in anterior portal just distal to the biceps tendon. I then began my inspection of the glenohumeral joint. The glenohumeral joint was pristine with no changes compared to prior. I then removed the trochar and entered the subacromial space. A direct lateral portal was then established and I performed a bursectomy. The cuff was then examined. A screw had pulled out and was free floating with attached suture. The cuff tear was present and a portion of the anterior cuff had been further torn. The cuff was still mobile. I removed the sutures and then tested the bone of the bare area. It was soft and would not hold an anchor. Therefore I placed 8 looped sutures through the tear which included the infra and supraspinatus. I then brought 4 sutures to each of 2 anchors placed far lateral in harder bone. These had excellent purchase. Prio to this I burred the bare area down to bleeding bone. Once I wassatyidfied that the repair was stable and the anchors were firmly implanted, final images were captured and I removed all instrumentation. Pateint was extubated and brought to the recovery room in stable condition.
--- NOTE | 2020-09-13 10:16 | MHC.CM.PN ---
Addendum entered by Ariela Sherman 09/13/20 13:25: reviewed with patient nursing facilities for rehab accepting and she chose the [facility], patient will be transported at 3pm today via action wheelchair van post d/c from the short term rehab iniated referral to the [facility] for rn-pt-ot patient will call her son and has already called her friend ciara woods [phone] she has already called her and told her of the discharge to rehab i gave her the adress and phone number for her family Original Note: nurse personal care aid note electronic medical record reviewed along with case discussed with staff nurse, physical and occupational therapist as well [facility] MET WITH PATIENT SHE LIVES ALONE IN APARTMENT , SHE HAD A RECENT FALL AND REQUIRES ROTATOR CUFF SURGICAL REPAIR SHE HAS HER HAND IN A SLING INIATED SEVERAL REFERRALS TO [facility] SPOKE WITH GLADYS AT [facility] TO INFORM HER OF THE CHANGE IN DISPOSITION
[2020-09-13 11:40] VITALS: BP 143/73; PULSE 82; RESP 18; TEMP 37.2; O2SAT 99
[2020-09-13 11:46] LABS: COVID-19 Test Negative (Negative); IDNOW Serial# 9DD0AD1C
--- NOTE | 2020-09-13 14:37 | HO.POSTANES ---
Post Anesthesia Evaluation Post Anesthesia Evaluation Vital Signs: Vital Signs Temp Pulse Resp BP Pulse Ox 09/13/20 11:40 98.9 F 82 18 143/73 H 99 09/13/20 07:39 98.7 F 85 20 150/67 H 97 09/13/20 04:00 98.4 F 82 19 157/85 H 94 Anesthesia: General Mental Status: Awake Pain Control: Satisfactory Nausea/Vomiting: None Hydration: Adequate Anesthesia-Related Issues: No Anes. Related Issues
== END 2020-09-13 15:30 | disposition skilled nursing facility (03) ==
LOC: HO.SSS 11:04 → HO.S3 14:34
PROVIDERS: Physician Assistant; PCP Internal Medicine; Visit Provider Orthopaedic Surgery
PROC: (CPT 29827; principal; 2020-09-12 07:30)
DX: S46.012A Strain of muscle(s) and tendon(s) of the rotator cuff of left shoulder, initial encounter (principal); W19.XXXA Unspecified fall, initial encounter; Y93.9 Activity, unspecified; Y92.9 Unspecified place or not applicable; Y99.8 Other external cause status; R29.6 Repeated falls; M79.7 Fibromyalgia; J45.909 Unspecified asthma, uncomplicated; F32.9 Major depressive disorder, single episode, unspecified; Z20.822 Contact with and (suspected) exposure to COVID-19
CPT/HCPCS: 29827; 36415; 73020; 87635; 97110; 97162; 97166; C1713; J0131; J0171; J0690; J1100; J1170; J2250; J2370; J2405; J3010

== ENCOUNTER → 2020-09-21 12:46 | Outpatient (BNVA) | payer OTHER, SELFPAY | PROVIDERS: PCP Internal Medicine; Visit Provider Physician Assistant | DX: M75.102 Unspecified rotator cuff tear or rupture of left shoulder, not specified as traumatic (principal) | CPT/HCPCS: 99212 ==

== ENCOUNTER → 2020-10-12 12:55 | Outpatient (BNVA) | payer OTHER, SELFPAY | PROVIDERS: Visit Provider Orthopaedic Surgery | DX: Z98.890 Other specified postprocedural states (principal) | CPT/HCPCS: 99212 ==

== ENCOUNTER → 2020-10-26 13:16 | Outpatient (BNVA) | payer OTHER, SELFPAY | PROVIDERS: Visit Provider Orthopaedic Surgery | DX: R29.6 Repeated falls (principal); Z98.890 Other specified postprocedural states | CPT/HCPCS: 99212 ==

== ENCOUNTER → 2020-12-07 11:14 | Outpatient (BNVA) | payer OTHER, SELFPAY | PROVIDERS: Visit Provider Orthopaedic Surgery | DX: Z98.890 Other specified postprocedural states (principal) | CPT/HCPCS: 99212 ==

== ENCOUNTER → 2021-02-23 09:46 | Outpatient (BNVA) | payer OTHER, SELFPAY | PROVIDERS: PCP Internal Medicine; Visit Provider Orthopaedic Surgery | DX: M79.7 Fibromyalgia (principal); R53.1 Weakness; R29.6 Repeated falls; Z98.890 Other specified postprocedural states | CPT/HCPCS: 99212 ==

== ENCOUNTER 2021-05-23 15:00 | Outpatient (REF) | payer OTHER, SELFPAY ==
--- NOTE | ~2021-05-23 | MR_ITS ---
EXAMINATION: MR LUMBAR SPINE WITHOUT AND WITH CONTRAST CLINICAL INFORMATION: 65-year-old with postlaminectomy syndrome, not elsewhere classified. Complaints of low back and bilateral leg pain. COMPARISON: 08/18/2017 MRI TECHNIQUE: MRI of the lumbar spine was obtained using routine sequences with and without contrast. Intravenous contrast: Gadavist 10 mL. FINDINGS: Coronal Alignment: Mild mid lumbar levocurvature, stable in appearance. Sagittal Alignment: The lumbosacral spine is anatomically aligned in the sagittal plane, stable from previous study. Lumbosacral Junction: Normal. Vertebral Bodies: Normal height. Disc Spaces and Endplates: Mild disc space height loss asymmetric to the left at L5-S1, with disc desiccation, stable in appearance. Mild degrees of disc desiccation are also noted at L4-L5 and L3-L4, stable in appearance. Disc space heights are well maintained. Interbody fusion at L2-L3, unchanged in appearance. Spinal Canal: Fibrofatty infiltration of the filum terminale between L2 and the sacral dural sac, unchanged in appearance, without significant thickening. Bone Marrow: No significant marrow-replacing process or bone marrow edema. Small benign vertebral hemangioma on the right side of the L1 vertebral body, stable in appearance. Conus Medullaris: Terminates at L1. Morphology and signal is normal. No abnormal enhancement. Intradural Nerve Roots: Within normal limits. No abnormal intradural enhancement. L5-S1: Minor disc bulging noted with a small left inferior foraminal disc-osteophyte complex, stable in appearance with slight flattening of the ventral dural sac, unchanged in appearance. Mild ligamentum flavum thickening and moderate bilateral facet arthropathy is largely stable in appearance, with mild narrowing of the left subarticular recess without significant central spinal canal stenosis, unchanged in appearance. There is mild left-sided neural foraminal stenosis without neural impingement. L4-L5: Mild annular bulging noted with a tiny central annular fissure, stable in appearance. Slight flattening of the dural sac with ligamentum flavum thickening and moderate bilateral facet hypertrophic degenerative changes, similar to the previous exam, with mild narrowing of the subarticular zones bilaterally, stable in appearance. No significant central spinal canal stenosis or neural foraminal compromise. L3-L4: Minor annular bulging again noted with a small inferior foraminal disc protrusion on the left, stable in appearance. Ligamentum flavum thickening and moderate bilateral facet arthropathy noted without significant canal or neural foraminal stenosis. L2-L3: Status post laminectomy and posterior instrumented fusion, similar in appearance to the previous exam with a widely patent canal with dorsal epidural scar tissue, unchanged in appearance. No significant neural foraminal stenosis. L1-L2: No disc bulge or herniation. Facets are partially obscured by pedicle screw artifact. Suspect mild ligamentum flavum thickening and mild facet arthrosis without significant canal or neural foraminal stenosis. T12-L1: No disc bulge or herniation and no significant facet arthrosis, canal or neural foraminal stenosis. T11-T12: Central extruded disc herniation noted with mild cephalad migration, slightly diminished in size from previous exam without spinal cord impingement, canal or neural foraminal stenosis. There is moderate facet arthropathy on the left at T9-T10, stable in appearance which is partially imaged. Paraspinal/Retroperitoneal: The paravertebral soft tissues appear unremarkable. Bilateral adrenal enlargement is noted. See previous CT of the abdomen of 05/02/2020. MR/MR lumbar spine wo/w con IMPRESSION: 1. Status post instrumented fusion at the L2-L3 level with laminectomy changes, with no significant canal or foraminal compromise, stable in appearance. 2. Stable discogenic degenerative changes at multiple levels, with stable multilevel bilateral facet arthropathy. Multilevel disc bulging and foraminal disc protrusions are again noted, similar to the previous exam with no significant central spinal canal stenosis. No significant neural foraminal stenosis. No abnormal enhancement within the limitations of the study.
[2021-05-23 13:02] LABS: Blood Urea Nitrogen 14 mg/dL (9-16); Estimated Glomerular Filt Rate > 60
== END 2021-05-23 15:01 | disposition home or self-care (01) ==
LOC: HO.MRI 15:00
PROVIDERS: PCP Internal Medicine; Visit Provider Internal Medicine
DX: Z01.812 Encounter for preprocedural laboratory examination (principal); M96.1 Postlaminectomy syndrome, not elsewhere classified; M54.16 Radiculopathy, lumbar region
CPT/HCPCS: 36415; 72158; 82565; 84520; A9585

== ENCOUNTER 2021-05-24 12:02 | Outpatient (REF) | payer OTHER, SELFPAY ==
--- NOTE | ~2021-05-24 | XR_ITS ---
EXAMINATION: XR SHOULDER, LEFT CLINICAL INFORMATION: Pain COMPARISON: Left shoulder radiograph from 09/12/2020 TECHNIQUE: Two views of the left shoulder. FINDINGS: No acute visible fracture or dislocation. Surgical anchors identified in the left humeral head. Slight elevation of the humeral head in relation to glenoid fossa which may suggest rotator cuff pathology. Degenerative changes of the glenohumeral and acromioclavicular joint with joint space narrowing and periarticular osteophyte formation. Joint spaces and alignment are otherwise maintained. Soft tissues are unremarkable. Utilized portions of the left chest are unremarkable. XR/XR shoulder LT 1V IMPRESSION: 1. No acute visible fracture or dislocation. 2. Surgical anchors identified in the left humeral head. 3. Slight elevation of the humeral head in relation to glenoid fossa which may suggest rotator cuff pathology. 4. Degenerative changes of the glenohumeral and acromioclavicular joint.
== END 2021-05-24 12:03 | disposition home or self-care (01) ==
LOC: HO.HOSX 12:02
PROVIDERS: Visit Provider Orthopaedic Surgery
DX: Z98.890 Other specified postprocedural states (principal)
CPT/HCPCS: 73020; 99212

== ENCOUNTER 2021-06-07 11:16 | Outpatient (REF) | payer OTHER, SELFPAY ==
[2021-06-07 11:32] LABS: MANUAL DIFF FLAG NO
[2021-06-07 12:06] LABS: Appearance Urine HAZY; Color Urine YELLOW; Glucose Urine UA NEG (NEG); Leukocyte Esterase Urine NEG (NEG); Nitrite Urine POS (NEG); Specific Gravity - Urine 1.025 (1.005-1.025); UACC Culture Trigger YES; Urine Blood 1+ (NEG); Urine Ketones NEG (NEG); Urine Protein TRACE MG/DL (NEG-TRACE)
[2021-06-07 12:07] LABS: Basophils Absolute Auto 0.1 X10*3/uL (0.0-0.2); Basophils Percent Auto 0.9 % (0-2); Eosinophils Absolute Auto 0.2 X10*3/uL (0.0-0.4); Eosinophils Percent Auto 3.7 % (0-4); Hematocrit 44.3 % (37.0-47.0); Hemoglobin 14.1 g/dl (12.0-16.0); Imm Gran Abs Auto 0.01 X10*3/uL (0.00-0.03); Imm Gran Pct Auto 0.2 % (0.0-0.4); Lymphocytes Absolute Auto 2.4 X10*3/uL (1.2-4.9); Mean Corpuscular HGB Conc 31.8 g/dl (31.0-35.0); Mean Corpuscular Hemoglobin 28.3 pg (27.0-33.0); Mean Platelet Volume 10.5 fL (9.4-12.3); Monocytes Absolute Auto 0.5 X10*3/uL (0.1-1.2); Monocytes Percent Auto 9.2 % (2-11); Neutrophils Absolute Auto 2.7 x10*3/uL (2.0-8.3); Platelet Count 292 X10*3/uL (160-400); Red Blood Count 4.98 X10*6/uL (4.20-5.50); Red Cell Distribution Width 15.1 % (11.0-16.0); White Blood Count 5.9 X10*3/uL (4.8-10.8)
[2021-06-07 12:36] LABS: Alanine Aminotransferase 18 U/L (0-31); Albumin Level 4.3 g/dL (3.5-5.0); Alkaline Phosphatase 110 U/L (39-117); Anion Gap 11 (12-20); Aspartate Amino Transferase 20 U/L (5-31); Bilirubin Total 0.5 mg/dL (0.0-1.0); Blood Urea Nitrogen 13 mg/dL (9-16); C Reactive Protein 0.42 mg/dL (< or = 0.50); Calcium 9.6 mg/dL (8.4-10.2); Carbon Dioxide 32 mmol/L (22-29); Chloride 103 mmol/L (96-108); Cholesterol 232 mg/dL; Estimated Glomerular Filt Rate > 60; Glucose Fasting 113 mg/dL (60-99); HDL Cholesterol 83 mg/dL; LDL Cholesterol Calculated 132 mg/dl; Potassium 4.5 mmol/L (3.3-5.1); Sodium 141 mmol/L (135-145); Total Protein 7.8 g/dL (6.5-8.0); Triglycerides 89 mg/dL
[2021-06-07 12:43] LABS: Bacteria Urine 3+ /LPF; RBC Urine 0-2 /HPF (0); Renal Epithelial Cells Urine 1+ /LPF; Squamous Epithelial Cell Urine 2+ /LPF
[2021-06-07 12:46] LABS: Rheumatoid Factor < 15.0 IU/mL (<15.0)
[2021-06-07 12:51] LABS: Erythrocyte Sedimentation Rate 14 MM/HR (0-20)
[2021-06-07 12:59] LABS: TSH reflex Free T4 5.43 uIU/mL (0.32-4.0); Vitamin D 25-OH Total 27.8 ng/mL (>30)
[2021-06-07 13:40] LABS: Free T4 (Free Thyroxine) 0.95 ng/dL (0.71-1.85)
[2021-06-07 13:59] LABS: Folate 8.7 ng/mL (> or = 4.0); Vitamin B12 272 pg/mL (200-900)
[2021-06-08 13:56] LABS: Anti Nuclear Antibody Screen NEGATIVE (NEGATIVE)
== END 2021-06-07 11:17 | disposition home or self-care (01) ==
LOC: HO.LAB 11:16
PROVIDERS: PCP Internal Medicine; Visit Provider Internal Medicine
DX: M25.50 Pain in unspecified joint (principal); I10 Essential (primary) hypertension; M79.7 Fibromyalgia; E53.8 Deficiency of other specified B group vitamins; E55.9 Vitamin D deficiency, unspecified; E78.00 Pure hypercholesterolemia, unspecified
CPT/HCPCS: 36415; 80053; 80061; 81001; 81003; 82306; 82607; 82746; 84439; 84443; 85025; 85652; 86038; 86039; 86140; 86431; 87086; 87088; 87186

== ENCOUNTER 2021-06-13 11:35 | Outpatient (REF) | payer OTHER, SELFPAY ==
--- NOTE | ~2021-06-13 | MM_ITS ---
EXAMINATION: MM SCREENING DIGITAL BREAST TOMOSYNTHESIS, BILATERAL CLINICAL INFORMATION: Screening. Asymptomatic. The lifetime risk of breast cancer based on the Tyrer-Cuzick Model is 3.4%. COMPARISON: Mammography: June 28, 2014 and studies dating back to May 24, 2008 TECHNIQUE: Digital breast tomosynthesis is performed in both the craniocaudal and mediolateral oblique views along with computer-aided detection (CAD). Synthesized 2D images are generated from the tomosynthesis. FINDINGS: The breasts are almost entirely fatty (ACR BI-RADS breast composition Category a). There are no significant masses, abnormal calcifications, or other abnormalities. MM/MM tomosynthesis screening BI IMPRESSION: There are no significant changes from prior study. ASSESSMENT: BI-RADS 1: Negative RECOMMENDATION: Routine annual mammography screening. This patient's information was entered into a reminder system with a target due date for their next mammogram.
== END 2021-06-13 11:36 | disposition home or self-care (01) ==
LOC: HO.MAMMO 11:35
PROVIDERS: Visit Provider Internal Medicine
DX: Z12.31 Encounter for screening mammogram for malignant neoplasm of breast (principal)
CPT/HCPCS: 77063; 77067

== ENCOUNTER → 2021-06-28 08:46 | Outpatient (BNVA) | payer OTHER, SELFPAY | PROVIDERS: PCP Internal Medicine; Visit Provider Orthopaedic Surgery | DX: M25.512 Pain in left shoulder (principal); Z98.890 Other specified postprocedural states; Z91.81 History of falling | CPT/HCPCS: 20610; 99212; J1100 ==

== ENCOUNTER 2021-07-03 11:11 | Outpatient (REF) | payer OTHER, SELFPAY ==
--- NOTE | ~2021-07-03 | MR_ITS ---
EXAMINATION: MRI LEFT SHOULDER WITHOUT CONTRAST CLINICAL INFORMATION: Left shoulder pain. Decreased range of motion. Symptoms x2 months. Fall. Prior rotator cuff surgery. COMPARISON: MRI dated 04/25/2020 TECHNIQUE: MR images of the shoulder were obtained on a 1.5 Pau high-field strength scanner without intravenous contrast material. FINDINGS: ROTATOR CUFF: Metal soft tissue anchors are evident at the greater tuberosity, consistent with prior rotator cuff repair and biceps tenodesis. The supraspinatus tendon is attenuated distally, favored to correspond to the expected postoperative appearance. There is retraction of undersurface fibers at the supraspinatus and infraspinatus tendons by approximately 2 cm at the level of the humeral head apex, consistent with a small amount of delaminated fibers. These appear scarred and may be contiguous with a medially displaced rotator cable. Otherwise, no findings of new rotator cuff tears. There is subscapularis tendinosis with undersurface fraying. No discrete subscapularis tendon tears. Teres minor tendon is intact. There is grade 2 fatty replacement of the supraspinatus and infraspinatus muscles, slightly more pronounced as compared to prior. No new muscle atrophy. BICEPS: Status post tenodesis at the entrance to the bicipital groove. CORACOACROMIAL ARCH: The undersurface of the acromion is remodeled status post subacromial decompression. No subacromial spur. Mild to moderate acromioclavicular osteoarthritis. No fluid in the subacromial-subdeltoid bursa. LABRUM/CAPSULE: Superior labrum is blunted and status post biceps tenodesis. No appreciable labral tears are identified. Joint capsule is unremarkable at the axillary pouch. GLENOHUMERAL JOINT/MARROW: Small glenoid and humeral head osteophytes. There is mild nonuniform chondral thinning at the humeral head anterosuperiorly. No fracture or malalignment. MR/MR shoulder LT wo con IMPRESSION: Attenuated appearance of the distal supraspinatus tendon status post repair is favored to correspond to the expected postoperative result. A layer of delaminated undersurface fibers likely remains scarred or attached to the medially displaced rotator cable at the undersurface of the supraspinatus and infraspinatus tendons. No appreciable new rotator cuff tears are identified. Grade 2 fatty replacement of the supraspinatus and infraspinatus muscles appear slightly more pronounced as compared to prior. Status post biceps tenodesis and subacromial decompression. Mild to moderate acromioclavicular and mild glenohumeral osteoarthritis.
== END 2021-07-03 11:12 | disposition home or self-care (01) ==
LOC: HO.MRI 11:11
PROVIDERS: PCP Internal Medicine; Visit Provider Orthopaedic Surgery
DX: Z98.890 Other specified postprocedural states (principal)
CPT/HCPCS: 73221

== ENCOUNTER → 2021-07-30 09:34 | Outpatient (REF) | payer OTHER, SELFPAY ==
--- NOTE | 2021-07-30 09:37 | CA_ITS ---
Acquisition Time: 2021-07-30 10:56:32 Total Exercise Time: 00:00:25 Test Indications: R07.9 - Chest pain, unspecified Medications: Protocol: FIOR Max HR: 114 BPM 73% of Pred: 156 BPM Max BP: 114/074 mmHG Max Work Load: 1.0 METS Exercise stress test with exercise 5 sec of Kraig protocol and unable to keep up with speed of treadmill. Treadmill stopped and protocol changed to Fior where she exercised 25 sec and was still not able to keep up with speed of treadmill (normally ambulates with cane), with report of 8/10 anterior chest pressure which she states is always there , without arrythmia, with normotensive BP, with nondiagnostic EKGs for ischemia due to suboptimal heart rate and exercise time. Test reviewed with Dr Mora. Will send message to her PCP with recommendation for pharmacological nuclear stress test for further evaluation. Referred By: Octavia Walton Overread By: GIULIANA ADAMS
== END ==
LOC: HO.CARD 09:34
PROVIDERS: Visit Provider Nurse Practitioner Family
DX: R07.9 Chest pain, unspecified (principal)
CPT/HCPCS: 93017

== ENCOUNTER 2021-10-03 09:42 | Outpatient (REF) | payer OTHER, SELFPAY ==
--- NOTE | ~2021-10-03 | XR_ITS ---
EXAMINATION: LEFT RIBS, CHEST X-RAY AND LEFT CLAVICLE. CLINICAL INFORMATION: Left clavicle pain. Left rib pain. COMPARISON: None TECHNIQUE: Left clavicle 2 views. Chest and left RIBS 4 views. FINDINGS: LEFT CLAVICLE: There is mild loss of left AC joint and left glenohumeral joint space. No periarticular spurring seen. The soft tissues are normal. There are postsurgical changes along the left humeral head. CHEST AND LEFT RIBS: The lungs are well-expanded and clear. The heart size and pulmonary vascularity is normal. No bony thorax abnormality seen. Multiple views of left ribs reveal no visible acute fracture or bony abnormality. The soft tissues are normal. XR/XR clavicle LT IMPRESSION: Unremarkable left clavicle exam. Unremarkable chest and left ribs.
--- NOTE | ~2021-10-03 | XR_ITS ---
EXAMINATION: LEFT RIBS, CHEST X-RAY AND LEFT CLAVICLE. CLINICAL INFORMATION: Left clavicle pain. Left rib pain. COMPARISON: None TECHNIQUE: Left clavicle 2 views. Chest and left RIBS 4 views. FINDINGS: LEFT CLAVICLE: There is mild loss of left AC joint and left glenohumeral joint space. No periarticular spurring seen. The soft tissues are normal. There are postsurgical changes along the left humeral head. CHEST AND LEFT RIBS: The lungs are well-expanded and clear. The heart size and pulmonary vascularity is normal. No bony thorax abnormality seen. Multiple views of left ribs reveal no visible acute fracture or bony abnormality. The soft tissues are normal. XR/XR ribs LT min 3V w CXR1V IMPRESSION: Unremarkable left clavicle exam. Unremarkable chest and left ribs.
== END 2021-10-03 09:43 | disposition home or self-care (01) ==
LOC: HO.XRAY 09:42
PROVIDERS: PCP Internal Medicine; Visit Provider Internal Medicine
DX: M89.8X1 Other specified disorders of bone, shoulder (principal); R07.89 Other chest pain
CPT/HCPCS: 71101; 73000

== ENCOUNTER → 2022-02-13 10:05 | Outpatient (BNVA) | payer OTHER, SELFPAY | PROVIDERS: PCP Internal Medicine; Visit Provider Nurse Practitioner Family | DX: M54.16 Radiculopathy, lumbar region (principal); M96.1 Postlaminectomy syndrome, not elsewhere classified; M25.50 Pain in unspecified joint; M79.7 Fibromyalgia | CPT/HCPCS: 99202 ==

== ENCOUNTER 2022-03-27 05:50 | Outpatient (REF) | payer OTHER, SELFPAY | END 2022-03-27 05:51 | disposition home or self-care (01) | LOC: HO.RADIR 05:50 | PROVIDERS: Visit Provider Internal Medicine | DX: M54.16 Radiculopathy, lumbar region (principal) | CPT/HCPCS: J1040 ==

== ENCOUNTER 2022-03-28 13:09 | Outpatient (REF) | payer OTHER, SELFPAY ==
[2022-03-28 13:30] LABS: MANUAL DIFF FLAG NO
[2022-03-28 14:43] LABS: Basophils Percent Auto 0.8 % (0-2); Eosinophils Absolute Auto 0.2 X10*3/uL (0.0-0.4); Eosinophils Percent Auto 3.4 % (0-4); Hematocrit 42.9 % (37.0-47.0); Hemoglobin 13.8 g/dl (12.0-16.0); Imm Gran Abs Auto 0.02 X10*3/uL (0.00-0.03); Imm Gran Pct Auto 0.4 % (0.0-0.4); Lymphocytes Percent Auto 39.1 % (20-40); Mean Corpuscular HGB Conc 32.2 g/dl (31.0-35.0); Mean Platelet Volume 11.6 fL (9.4-12.3); Monocytes Absolute Auto 0.5 X10*3/uL (0.1-1.2); Monocytes Percent Auto 9.6 % (2-11); Neutrophils Absolute Auto 2.3 x10*3/uL (2.0-8.3); Neutrophils Percent Auto 46.7 % (45-73); Platelet Count 271 X10*3/uL (160-400); Red Blood Count 4.93 X10*6/uL (4.20-5.50); Red Cell Distribution Width 15.1 % (11.0-16.0)
[2022-03-28 14:53] LABS: INTERNATIONAL NORM RATIO 0.9 (0.9-1.1); Prothrombin Time 10.7 SEC (10.0-13.1)
[2022-03-28 14:54] LABS: Partial Thromboplastin Time 36.4 SEC (26.0-36.4)
[2022-03-28 15:14] LABS: Alanine Aminotransferase 19 U/L (0-31); Albumin Level 4.2 g/dL (3.5-5.0); Alkaline Phosphatase 94 U/L (39-117); Anion Gap 14 (12-20); Aspartate Amino Transferase 23 U/L (5-31); Bilirubin Total 0.5 mg/dL (0.0-1.0); Blood Urea Nitrogen 13 mg/dL (9-16); Calcium 9.1 mg/dL (8.4-10.2); Carbon Dioxide 29 mmol/L (22-29); Chloride 103 mmol/L (96-108); Estimated Glomerular Filt Rate > 60; Glucose Random 96 mg/dL (60-115); Potassium 4.1 mmol/L (3.3-5.1); Sodium 142 mmol/L (135-145); Total Protein 7.3 g/dL (6.5-8.0)
[2022-03-28 15:53] LABS: Folate 8.4 ng/mL (> or = 4.0); Vitamin B12 192 pg/mL (200-900)
[2022-04-04 00:48] LABS: Vitamin K1 180 pg/mL (130-1500)
== END 2022-03-28 13:10 | disposition home or self-care (01) ==
LOC: HO.LAB 13:09
PROVIDERS: Visit Provider Internal Medicine
DX: R23.3 Spontaneous ecchymoses (principal)
CPT/HCPCS: 36415; 80053; 82607; 82746; 84597; 85025; 85610; 85730

== ENCOUNTER → 2022-04-26 09:48 | Outpatient (REF) | payer OTHER, SELFPAY ==
--- NOTE | ~2022-04-26 | NM_ITS ---
Myocardial perfusion study Indication: Chest pain to evaluate for myocardial ischemia Technique: The patient was brought in for a Lexiscan perfusion study on 04/26/2022. Patient performed low-level exercise and was injected 0.4 mg of Lexiscan intravenously. Within a minute of injection, 35 mCi of sestamibi was given intravenously. Images were obtained using the SPECT gamma camera interlaced with the gating device. Images were obtained in supine position. Resting perfusion study was performed on 05/02/2022. Patient was administered 35 mCi of sestamibi intravenously at rest. Images were then obtained in supine position. Images obtained with and without CT attenuation. Total DLP 73 mGy-cm. Images were processed with the software and compared side to side in short axis, horizontal long axis and vertical long axis views. Findings: The stress perfusion study showed non attenuated images show overall normal uptake of radiotracer in all segments of LV myocardium. Remainder of the LV myocardium is normally perfused. Attenuation corrected images show minimal thinning of the apex of the LV myocardium.. The gated study shows normal LV systolic function with calculated LVEF of 73%. LV cavity is normal in size. The gated study shows normal systolic wall thickening and contraction of segments. Resting study shows no change in perfusion pattern compared to stress perfusion study. Gating at rest reveals normal systolic wall motion with ejection fraction at 74%. The findings are consistent with normal myocardial perfusion. NM/NM cardiolite stress test Impression: 1. Myocardial perfusion imaging study shows normal myocardial perfusion 2. Gated LVEF is 73% 3. Transient ischemic dilatation not present EKG is nondiagnostic for ischemia
--- NOTE | 2022-04-26 09:53 | CA_ITS ---
Acquisition Time: 2022-04-26 09:58:05 Total Exercise Time: 00:02:00 Test Indications: CP Medications: SEE CHART Protocol: LEXISCAN Max HR: 113 BPM 72% of Pred: 155 BPM Max BP: 116/068 mmHG Max Work Load: 1.0 METS Pharmacological stress test with Lexiscan injection, while sitting and kicking her legs, without anginal symptoms, without arrythmia, with normotensive response to injection, with nondiagnostic EKG for ischemia. Nuclear images pending. Test reviewed with Dr Zaldivar. Referred By: Henrique Soler Overread By: GIULIANA ADAMS
== END ==
LOC: HO.CARD 09:48
PROVIDERS: PCP Internal Medicine; Visit Provider Internal Medicine
DX: R07.9 Chest pain, unspecified (principal); R06.02 Shortness of breath
CPT/HCPCS: 78452; 93017; A9500; J0280; J2785

== ENCOUNTER 2022-04-30 15:46 | Outpatient (REF) | payer OTHER, SELFPAY ==
--- NOTE | ~2022-04-30 | XR_ITS ---
EXAMINATION: XR RIBS, LEFT, PA CHEST CLINICAL INFORMATION: Left frontal chest wall contusion. COMPARISON: Chest and rib radiographs dated 10/03/2021. TECHNIQUE: 3 views of the left ribs were obtained and PA chest. A skin marker overlies the inferior left ribs. FINDINGS: Lungs are clear. No consolidation, pneumothorax, or pleural effusion. The cardiomediastinal silhouette and pulmonary vasculature are normal. Osseous structures are unremarkable. Ribs are intact. No fractures are identified. XR/XR ribs LT min 3V w CXR1V IMPRESSION: Unremarkable examination.
== END 2022-04-30 15:47 | disposition home or self-care (01) ==
LOC: HO.HMGCX 15:46
PROVIDERS: PCP Internal Medicine; Visit Provider Internal Medicine
DX: S20.212A Contusion of left front wall of thorax, initial encounter (principal)
CPT/HCPCS: 71101

== ENCOUNTER 2022-07-02 13:49 | Outpatient (REF) | payer MEDICARE, MEDICAID, SELFPAY ==
[2022-07-02 14:41] LABS: Influenza A PCR POSITIVE (Negative); Influenza B PCR NEGATIVE (Negative); Resp Syncy Virus RNA Qual PCR NEGATIVE (Negative); SARS COV2 PCR INHOUSE NEGATIVE (Negative)
== END 2022-07-02 13:50 | disposition home or self-care (01) ==
LOC: HO.LNP 13:49
PROVIDERS: Visit Provider Physician Assistant
DX: Z20.822 Contact with and (suspected) exposure to COVID-19 (principal); B34.9 Viral infection, unspecified
CPT/HCPCS: 0241U

== ENCOUNTER 2022-07-09 10:40 | Outpatient (REF) | payer OTHER, SELFPAY ==
[2022-07-09 11:53] LABS: Appearance Urine Cloudy; Color Urine Yellow; Glucose Urine UA Negative (Negative); Leukocyte Esterase Urine Small (1+) (Negative); Nitrite Urine Positive (Negative); UMIC TRIGGER UACC YES; Urine Blood Negative (Negative); Urine Ketones Negative (Negative); Urine Protein Negative (Neg-Trace)
[2022-07-09 11:56] LABS: Bacteria Urine 4+ (None Seen); Hyaline Casts Urine 0-2 /LPF (0-2); UACC Culture Trigger YES
== END 2022-07-09 10:41 | disposition home or self-care (01) ==
LOC: HO.LAB 10:40
PROVIDERS: PCP Internal Medicine; Visit Provider Internal Medicine
DX: R30.0 Dysuria (principal); R82.90 Unspecified abnormal findings in urine
CPT/HCPCS: 81001; 87086; 87088; 87186

== ENCOUNTER 2022-08-26 11:40 | Outpatient (REF) | payer MEDICARE, MEDICAID, SELFPAY ==
[2022-08-26 14:39] LABS: Influenza A PCR NEGATIVE (Negative); Influenza B PCR NEGATIVE (Negative); Resp Syncy Virus RNA Qual PCR NEGATIVE (Negative); SARS COV2 PCR INHOUSE NEGATIVE (Negative)
== END 2022-08-26 11:41 | disposition home or self-care (01) ==
LOC: HO.LAB 11:40
PROVIDERS: Visit Provider Nurse Practitioner Family
DX: Z20.822 Contact with and (suspected) exposure to COVID-19 (principal); R11.2 Nausea with vomiting, unspecified
CPT/HCPCS: 0241U

== ENCOUNTER 2022-10-03 09:19 | Outpatient (REF) | payer MEDICARE, MEDICAID, SELFPAY ==
[2022-10-03 09:39] LABS: MANUAL DIFF FLAG NO
[2022-10-03 09:49] LABS: Basophils Absolute Auto 0.1 X10*3/uL (0.0-0.2); Basophils Percent Auto 0.8 % (0-2); Eosinophils Absolute Auto 0.2 X10*3/uL (0.0-0.4); Eosinophils Percent Auto 2.6 % (0-4); Hematocrit 44.4 % (37.0-47.0); Hemoglobin 14.4 g/dl (12.0-16.0); Imm Gran Abs Auto 0.02 X10*3/uL (0.00-0.03); Imm Gran Pct Auto 0.3 % (0.0-0.4); Lymphocytes Absolute Auto 2.2 X10*3/uL (1.2-4.9); Lymphocytes Percent Auto 35.3 % (20-40); Mean Corpuscular HGB Conc 32.4 g/dl (31.0-35.0); Mean Corpuscular Hemoglobin 28.6 pg (27.0-33.0); Mean Corpuscular Volume 88.1 fL (80.0-98.0); Mean Platelet Volume 10.8 fL (9.4-12.3); Monocytes Absolute Auto 0.6 X10*3/uL (0.1-1.2); Neutrophils Absolute Auto 3.2 x10*3/uL (2.0-8.3); Platelet Count 279 X10*3/uL (160-400); Red Blood Count 5.04 X10*6/uL (4.20-5.50); White Blood Count 6.1 X10*3/uL (4.8-10.8)
[2022-10-03 10:25] LABS: Appearance Urine Clear; Color Urine Yellow; Glucose Urine UA Negative (Negative); Leukocyte Esterase Urine Small (1+) (Negative); Nitrite Urine Negative (Negative); UMIC TRIGGER UACC YES; Urine Blood Trace (Negative); Urine Ketones Negative (Negative); Urine Protein Negative (Neg-Trace)
[2022-10-03 10:26] LABS: Alanine Aminotransferase 13 U/L (0-31); Alkaline Phosphatase 94 U/L (39-117); Anion Gap 11 (12-20); Aspartate Amino Transferase 16 U/L (5-31); Bilirubin Total 0.4 mg/dL (0.0-1.0); Blood Urea Nitrogen 17 mg/dL (9-16); Calcium 9.6 mg/dL (8.4-10.2); Carbon Dioxide 30 mmol/L (22-29); Chloride 105 mmol/L (96-108); Cholesterol 200 mg/dL; Estimated Glomerular Filt Rate > 60; Glucose Fasting 116 mg/dL (60-99); HDL Cholesterol 74 mg/dL; LDL Cholesterol Calculated 109 mg/dl; Sodium 141 mmol/L (135-145); Total Protein 7.3 g/dL (6.5-8.0); Triglycerides 88 mg/dL
[2022-10-03 10:45] LABS: Bacteria Urine 4+ (None Seen); Hyaline Casts Urine 0-2 /LPF (0-2); RBC Urine 0-2 /HPF (0-2); UACC Culture Trigger YES; WBC Urine 0-5 /HPF (0-5)
[2022-10-03 10:57] LABS: Folate 7.9 ng/mL (> or = 4.0); TSH reflex Free T4 4.24 uIU/mL (0.32-4.0); Vitamin B12 1143 pg/mL (200-900); Vitamin D 25-OH Total 28.6 ng/mL (>30)
[2022-10-03 11:55] LABS: Free T4 (Free Thyroxine) 0.78 ng/dL (0.71-1.85)
== END 2022-10-03 09:20 | disposition home or self-care (01) ==
LOC: HO.LAB 09:19
PROVIDERS: PCP Internal Medicine; Visit Provider Internal Medicine
DX: E78.00 Pure hypercholesterolemia, unspecified (principal); E53.8 Deficiency of other specified B group vitamins; E55.9 Vitamin D deficiency, unspecified; I10 Essential (primary) hypertension; R82.90 Unspecified abnormal findings in urine
CPT/HCPCS: 36415; 80053; 80061; 81001; 82306; 82607; 82746; 84439; 84443; 85025; 87086; 87088; 87186

== ENCOUNTER → 2022-10-14 14:52 | Outpatient (BNVA) | payer MEDICARE, MEDICAID, SELFPAY | PROVIDERS: PCP Internal Medicine; Visit Provider Nurse Practitioner Family | DX: M54.16 Radiculopathy, lumbar region (principal); M96.1 Postlaminectomy syndrome, not elsewhere classified; M79.7 Fibromyalgia; E66.9 Obesity, unspecified; Z68.35 Body mass index [BMI] 35.0-35.9, adult | CPT/HCPCS: 99212 ==

== ENCOUNTER 2022-10-31 08:36 | Outpatient (REF) | payer MEDICARE, MEDICAID, SELFPAY ==
--- NOTE | ~2022-10-31 | XR_ITS ---
EXAMINATION: XR shoulder RT min 2V, XR shoulder LT min 2V CLINICAL INFORMATION: Reason for Exam M25.519 - Pain in unspecified shoulder COMPARISON: None. TECHNIQUE: Three views of the right shoulder joint and 2 views of the left shoulder joint. XR/XR shoulder LT min 2V FINDINGS/IMPRESSION: * No acute fracture or dislocation. * Bilateral humeral heads surgical anchors are noted. * No soft tissue abnormality.
--- NOTE | ~2022-10-31 | XR_ITS ---
EXAMINATION: XR shoulder RT min 2V, XR shoulder LT min 2V CLINICAL INFORMATION: Reason for Exam M25.519 - Pain in unspecified shoulder COMPARISON: None. TECHNIQUE: Three views of the right shoulder joint and 2 views of the left shoulder joint. XR/XR shoulder RT min 2V FINDINGS/IMPRESSION: * No acute fracture or dislocation. * Bilateral humeral heads surgical anchors are noted. * No soft tissue abnormality.
== END 2022-10-31 08:37 | disposition home or self-care (01) ==
LOC: HO.HOSX 08:36
PROVIDERS: Visit Provider Orthopaedic Surgery
DX: M25.512 Pain in left shoulder (principal); M25.511 Pain in right shoulder
CPT/HCPCS: 73030

== ENCOUNTER 2022-10-31 08:57 | Outpatient (REF) | payer MEDICARE, MEDICAID, SELFPAY ==
--- NOTE | ~2022-10-31 | MM_ITS ---
EXAMINATION: MM SCREENING DIGITAL BREAST TOMOSYNTHESIS, BILATERAL CLINICAL INFORMATION: Screening. Asymptomatic. The lifetime risk of breast cancer based on the Tyrer-Cuzick Model is 2.8%. COMPARISON: Mammography: June 13, 2021 and studies dating back to June 16, 2014 TECHNIQUE: Digital breast tomosynthesis is performed in both the craniocaudal and mediolateral oblique views along with computer-aided detection (CAD). Synthesized 2D images are generated from the tomosynthesis. FINDINGS: The breasts are almost entirely fatty (ACR BI-RADS breast composition Category a). There are no significant masses, abnormal calcifications, or other abnormalities. MM/MM tomosynthesis screening BI IMPRESSION: No significant changes from prior exam. ASSESSMENT: BI-RADS 1: Negative RECOMMENDATION: Routine annual mammography screening. This patient's information was entered into a reminder system with a target due date for their next mammogram.
== END 2022-10-31 08:58 | disposition home or self-care (01) ==
LOC: HO.MAMMO 08:57
PROVIDERS: PCP Internal Medicine; Visit Provider Internal Medicine
DX: Z12.31 Encounter for screening mammogram for malignant neoplasm of breast (principal)
CPT/HCPCS: 77063; 77067; 99212

== ENCOUNTER 2022-12-04 05:50 | Outpatient (REF) | payer MEDICARE, MEDICAID, SELFPAY | END 2022-12-04 05:51 | disposition home or self-care (01) | LOC: CF 05:50 | PROVIDERS: Visit Provider Internal Medicine | DX: Z13.89 Encounter for screening for other disorder (principal) ==

== ENCOUNTER 2022-12-16 09:00 | Outpatient (RCR) | payer OTHER, SELFPAY ==
[2022-12-10 13:04] VITALS: BP 133/64; PULSE 85
--- NOTE | 2023-01-09 09:03 | MHC.PT.DC ---
[facility] [place] Office [place] Office [place] Office [address] Harris Harrington [address] [phone] F: [phone] F: [phone] F: [phone] F: [phone] Physical Therapy Discharge Report Diagnosis: VERTIGO (KP) Date of Surgery: Date of Evaluation: 12/10/22 Date of Discharge: 01/09/23 Treatments to Date: 2 Cancellations to Date: 0 No Shows to Date: 2 Discharge Status: Discharge Summary: No showed for last two scheduled appointments. Current status is unknown. She is being DC'ed for non-compliance. Electronically signed by: Kathya Esparza PT DPT Please sign and return to therapist. Thank you for your referral.
== END 2023-01-09 09:03 | disposition home or self-care (01) ==
LOC: HO.PT 09:00
PROVIDERS: PCP Internal Medicine; Visit Provider Internal Medicine
DX: H81.10 Benign paroxysmal vertigo, unspecified ear (principal)
CPT/HCPCS: 95992; 97161; 97162; 97535

== ENCOUNTER 2023-01-08 18:35 | Emergency (ER) | payer OTHER, MEDICAID, SELFPAY ==
--- NOTE | 2023-01-08 18:40 | ED.GENADULT ---
HPI - General Adult General Chief complaint: Abdominal Pain Stated complaint: left sided abd pain Time Seen by Provider: 01/08/23 19:48 Source: patient Mode of arrival: EMS Limitations: no limitations History of Present Illness HPI narrative: 67-year-old female who presents emergency department for evaluation of left lower abdominal pain and left flank pain x3 days the pain came on suddenly and got progressively worse. She describes the pain is a constant, squeezing like sensation which is 10/10 at its worst. The patient has associated nausea and had 4 episodes of vomiting yesterday with no vomiting today but persistent nausea. She had 3 episodes of loose diarrheal stool today. She denied fever, chills, chest pain, shortness of breath. She denied frequency, urgency or dysuria. Patient states she had similar pain 2 weeks prior. She was seen at [facility] and states she had a negative CT scan. Related Data Home Medications Medication Instructions Recorded Confirmed cefpodoxime 200 mg tablet 200 mg PO BID 12/26/22 12/26/22 Previous Rx's Medication Instructions Recorded ADULT PULL-UPS -- MEDIUM SIZE #100 03/16/21 albuterol sulfate 2.5 mg/3 mL 2.5 mg (3 mL) continuous 03/16/21 (0.083 %) solution for nebulization nebulization Q6H PRN shortness of breath or wheezing 30 days #180 mL albuterol sulfate 90 mcg/actuation 2 puff inhalation Q6H PRN 03/16/21 aerosol inhaler shortness of breath or wheezing 30 days #8.5 grams miscellaneous medical supply 1 ea miscellaneous DAILY #1 ea 03/16/21 miscellaneous medical supply 1 ea miscellaneous DAILY #1 ea 03/16/21 miscellaneous medical supply 1 ea miscellaneous DAILY #1 ea 03/16/21 miscellaneous medical supply 1 ea miscellaneous DAILY #1 ea 03/16/21 miscellaneous medical supply 1 ea miscellaneous DAILY #1 ea 03/16/21 miscellaneous medical supply 1 ea miscellaneous DAILY #1 ea 07/16/21 QUAD CANE #1 ea 09/28/21 hydroxyzine HCl 25 mg tablet 25 mg PO TID PRN anxiety 30 days 01/08/22 #90 tabs QUAD CANE #1 ea 03/20/22 meloxicam 15 mg tablet 15 mg PO DAILY #14 tabs 04/30/22 lidocaine 5 % topical patch 1 patch topical DAILY #30 ea 05/02/22 prednisone 20 mg tablet 40 mg PO DAILY 5 days #10 tabs 07/02/22 nitrofurantoin 100 mg PO Q12H 7 days #14 caps 07/09/22 monohydrate/macrocrystals 100 mg capsule (Macrobid) albuterol sulfate 90 mcg/actuation 2 puff inhalation Q6H PRN 09/11/22 aerosol inhaler shortness of breath or wheezing #6.7 grams ergocalciferol (vitamin D2) 1,250 1,250 mcg PO QWEEK #4 caps 10/04/22 mcg (50,000 unit) capsule (Vitamin D2) cane #1 ea 10/16/22 buspirone 10 mg tablet 10 mg PO BID 30 days #60 tabs 10/18/22 cyanocobalamin (vitamin B-12) 1,000 mcg PO DAILY 90 days #90 tabs 10/18/22 1,000 mcg tablet loratadine 10 mg tablet 10 mg PO DAILY PRN allergy 10/18/22 symptoms 30 days #30 tabs pantoprazole 40 mg tablet,delayed 40 mg PO DAILY #90 tabs 10/18/22 release nystatin 100,000 unit/gram topical 1 appl topical TID 10 days #60 11/11/22 powder grams pregabalin 150 mg capsule 150 mg PO TID 30 days #90 caps 11/13/22 bupropion HCl 100 mg tablet,12 hr 200 mg PO BID #112 tabs 11/29/22 sustained-release nortriptyline 25 mg capsule 25 mg PO BID 30 days #60 caps 12/12/22 lorazepam 0.5 mg tablet 0.5 mg PO TID PRN anxiety 30 days 12/26/22 #90 tabs duloxetine 30 mg capsule,delayed 30 mg PO DAILY 30 days #30 caps 12/27/22 release hydromorphone 2 mg tablet 2 mg PO Q6H PRN pain #10 tabs 01/08/23 (Dilaudid) Allergies Allergy/AdvReac Type Severity Reaction Status Date / Time codeine [Tylenol-Codeine #3] Allergy Intermediate Rash Verified 12/26/22 12:14 morphine Allergy Intermediate rash and Verified 12/26/22 12:14 itching nalbuphine [From Nubain] Allergy Intermediate Rash Verified 12/26/22 12:14 oxycodone [Percocet] Allergy Intermediate Rash Verified 12/26/22 12:14 propoxyphene Allergy Intermediate Rash Verified 12/26/22 12:14 [From Darvocet-N 100] tramadol [Ultram] Allergy Intermediate Rash Verified 12/26/22 12:14 ibuprofen [From Motrin] Allergy Mild RASH Verified 12/26/22 12:14 montelukast [Singulair] Allergy Unknown Unknown Verified 12/26/22 12:14 Review of Systems Review of Systems: Yes all other systems are reviewed and are negative [facility] Past Medical History [facility] Narrative: Social history: She denies tobacco use. She occasionally drinks alcohol. She denies drug use Medical History Allergic rhinitis Anxiety Asthma Depression Fibromyalgia GERD without esophagitis Insomnia Lumbar spondylosis Migraine Multiple joint pain Non-toxic multinodular goiter Obesity (BMI 30-39.9) Primary osteoarthritis of both knees Pure hypercholesterolemia Rotator cuff tear, left Urinary incontinence Vitamin D deficiency Surgical History History of cholecystectomy History of hysterectomy History of laminectomy (~2009) S/P rotator cuff repair Status post right rotator cuff repair (~07/26/18) Status post rotator cuff surgery Family History Family History Father Diabetes Mother Medical history unknown Social History Social History Household Members: None Housing: Apartment Do you presently have visiting nurse or other home services: No Alcohol intake: former Patient Tobacco Use Status: Never used Tobacco Smoked in Last 30 Days: No e-Cigarette/Vaping Use: Never Used Second Hand Smoke Exposure: No Use of substances other than those prescribed or required for medical reasons: No Advance Directives: No Advance Directives Information Provided: Yes service: No Current occupational status: disabled Cognitive needs: Yes (cane) Hearing needs: No Vision needs: Yes Physical Exam ED Vital Signs: Vital Signs - 24 hr 01/08/23 18:41 01/08/23 20:38 01/08/23 22:03 Temperature 97.6 F 98.7 F 98.5 F Pulse Rate 84 74 72 Respiratory Rate 16 18 16 Blood Pressure 136/82 128/55 L 119/68 Pulse Oximetry 98 97 96 Oxygen Delivery Method Room Air Room Air Room Air 01/08/23 23:26 Temperature 98.6 F Pulse Rate 70 Respiratory Rate 16 Blood Pressure 110/67 Pulse Oximetry 97 Oxygen Delivery Method Room Air BMI result Body Mass Index 34.9 Const General: cooperative and no acute distress Orientation/consciousness: oriented to person and oriented to place Limitations: no limitations HENMT Head: Yes normal to inspection, Yes normocephalic and Yes atraumatic Ears: external ears normal General nose exam: Normal external nose present Face and sinus: Yes normal facial exam Mouth: Normal oral and palatal mucosa present Throat: Yes posterior oropharynx normal Eyes General: appearance normal, both eyes and all related structures Pupils: Equal, round and reactive pupils present Neck Neck: Yes normal visual inspection, Yes no lymphadenopathy, Yes trachea midline and Yes supple Chest Chest palpation & inspection: normal inspection of the chest and normal palpation of entire chest wall Resp Effort & Inspection: normal respiratory effort and able to speak in complete sentences Auscultation: clear to auscultation bilaterally Cardio Rate: regular rate Rhythm: regular rhythm Heart sounds: S1 normal heart sound present, S2 normal heart sound present and no murmurs GI Other: Patient's abdomen is soft, patient has moderate LUQ and L LQ tenderness with moderate to severe left flank tenderness. Normoactive bowel sounds, no rebound General: Yes no CVA tenderness Back/Spine/Pelvis Back: no CVA tenderness Skin General skin exam: no rashes or lesions noted Neuro General: oriented to person and oriented to place Cranial nerves: Yes CN's II-XII intact bilaterally and Yes Equal, round and reactive pupils present Cognition (Neuro): normal cognition Motor exam (neuro): 5/5 motor strength present throughout Extrem General: Yes normal to inspection Psych Appearance: grossly normal Speech and movement: Normal speech and movement present Affect: normal affect Attitude: cooperative Thought process: Normal thought process present Thought content: Normal thought content present Course Course Course Narrative: RME- 67 year old female presents for evaluation of left sided abdominal pain. Patient has associated vomiting. Symptoms started 3 days ago. Plan for labs and a UA Medications Administered Discontinued Medications Generic Name Dose Route Start Last Admin Trade Name Freq PRN Reason Stop Dose Admin Diphenhydramine HCl 25 mg 01/08/23 20:01 01/08/23 20:47 Diphenhydramine Hcl 50 Mg/Ml Vial IVPUSH 01/08/23 20:02 25 mg ONCE STA Administration Hydromorphone HCl 0.5 mg 01/08/23 20:01 01/08/23 20:47 Hydromorphone Hcl 1 Mg/Ml Syringe IVPUSH 01/08/23 20:02 0.5 mg ONCE STA Administration Protocol Hydromorphone HCl 1 mg 01/08/23 22:05 01/08/23 22:30 Hydromorphone Hcl 1 Mg/Ml Syringe IVPUSH 01/08/23 22:06 1 mg ONCE STA Administration Protocol Sodium Chloride 1,000 mls @ 999 mls/hr 01/08/23 20:01 01/08/23 23:08 Ns IV 01/08/23 21:01 Infused .Q1H1M STA Infusion Iohexol 100 ml 01/08/23 21:08 01/08/23 21:09 Iohexol 350 Mg/Ml 100 Ml Infus..Btl IV 01/08/23 21:09 85 ml ONCE ONE Administration Ondansetron HCl 4 mg 01/08/23 20:06 01/08/23 20:48 Ondansetron Hcl 4 Mg/2 Ml Vial IVPUSH 01/08/23 20:07 4 mg ONCE ONE Administration Medical Decision Making Medical Decision Making MDM Narrative: 67-year-old female who presents emergency department for evaluation of sudden onset of left sided abdominal pain and left flank pain that started 3 days prior. Patient has been constant since onset, squeezing, 10/10 associated with nausea, vomiting and diarrhea. Patient had similar pain 2 weeks prior, was seen at [facility] had a negative CT scan of the abdomen pelvis, was treated for urinary tract infection with improvement. The patient currently denies frequency, urgency or dysuria. Vital signs were normal. Patient's exam did reveal moderate left upper and left lower quadrant tenderness with moderate left-sided CVA tenderness/flank tenderness. I ordered a following tests: CBC, CMP, lipase, urinalysis, CT scan abdomen pelvis with IV contrast. Patient's pain was treated with Dilaudid 0.5 mg IV, Benadryl 25 mg IV, Zofran 4 mg IV and normal saline x1 L. 2246: Patient's laboratory evaluation was unremarkable. Urinalysis was negative. CT scan of the abdomen pelvis without IV contrast did not reveal a clear etiology for the patient's pain Patient was treated with Dilaudid 0.5 mg, Benadryl 25 mg and Zofran 4 mg IV with only minimal relief of her discomfort She required a 2nd dose of Dilaudid 1 mg IV. At this time, I do not have a clear etiology for the patient's pain. The patient is unable to take Tylenol or ibuprofen secondary to her allergies Therefore she was scribed Dilaudid 2 mg pills, 1 pill every 6 hours as needed for pain, dispense 10 pills. She was also advised to take Benadryl 25 mg every 6 hours with the Dilaudid. She was given printed and verbal instructions and discharged home. Differential Diagnosis Differential Diagnoses: The differential diagnosis associated with the presentation includes Differential diagnosis includes was not limited to pyelonephritis, urinary tract infection,, ureteral stone,, renal colic, diverticulitis Admission/Observation Consideration of admission/observation: Escalation of care including admission/observation considered Lab Data MDM Lab Attestation statement: I reviewed the patient's lab results. My interpretation patient's laboratory evaluation as follows: CBC was normal. CMP revealed an elevated glucose of 158 otherwise unremarkable. Lipase was normal at 23. Urinalysis pending collection. 01/08/23 19:19 01/08/23 19:19 Labs: Lab Results 01/08/23 01/08/23 01/08/23 Range/Units 19:19 19:19 22:06 WBC 5.9 (4.8-10.8) X10*3/uL RBC 4.86 (4.20-5.50) X10*6/uL Hgb 13.6 (12.0-16.0) g/dl Hct 42.7 (37.0-47.0) % MCV 87.9 (80.0-98.0) fL MCH 28.0 (27.0-33.0) pg MCHC 31.9 (31.0-35.0) g/dl RDW 14.8 (11.0-16.0) % Plt Count 258 (160-400) X10*3/uL MPV 10.5 (9.4-12.3) fL Immature Gran % (Auto) 0.2 (0.0-0.4) % Neut % (Auto) 50.8 (45-73) % Lymph % (Auto) 36.5 (20-40) % [place]lee % (Auto) 9.4 (2-11) % Eos % (Auto) 2.4 (0-4) % Baso % (Auto) 0.7 (0-2) % Lymph # (Auto) 2.2 (1.2-4.9) X10*3/uL Greenlee # (Auto) 0.6 (0.1-1.2) X10*3/uL Eos # (Auto) 0.1 (0.0-0.4) X10*3/uL Baso # (Auto) 0.0 (0.0-0.2) X10*3/uL Abs Immat Gran (auto) 0.01 (0.00-0.03) X10*3/uL Absolute Neuts (auto) 3.0 (2.0-8.3) x10*3/uL Absolute Nucleated RBC 0.000 (0.0-0.012) X10*3/uL Nucleated RBC % (auto) 0.0 (0.0-0.2) /100WBC Sodium 144 (135-145) mmol/L Potassium 4.5 (3.3-5.1) mmol/L Chloride 110 H (96-108) mmol/L Carbon Dioxide 26 (22-29) mmol/L Anion Gap 13 (12-20) BUN 23 H (9-16) mg/dL Creatinine 0.77 (0.5-1.4) mg/dL Estim Creat Clear Calc 84.9 Estimated GFR > 60 Random Glucose 158 H (60-115) mg/dL Calcium 9.6 (8.4-10.2) mg/dL Total Bilirubin 0.3 (0.0-1.0) mg/dL AST 21 (5-31) U/L ALT 19 (0-31) U/L Alkaline Phosphatase 100 (39-117) U/L Total Protein 7.7 (6.5-8.0) g/dL Albumin 3.9 (3.5-5.0) g/dL Lipase 23 (8-78) U/L Urine Color Yellow Urine Appearance Clear Urine pH 6.0 (5.0-9.0) Ur Specific [place] >= 1.030 H (1.005-1.025) Urine Protein Negative (Neg-Trace) mg/dL Urine Glucose (UA) Negative (Negative) mg/dL Urine Ketones Negative (Negative) mg/dL Urine Blood Trace H (Negative) Urine Nitrite Negative (Negative) Ur Leukocyte Esterase Negative (Negative) Urine RBC 0-2 (0-2) /HPF Urine WBC 0-5 (0-5) /HPF Ur Squamous Epith Cells 3-5 (0-2) /HPF Urine Bacteria 1+ (None Seen) Hyaline Casts 0-2 (0-2) /LPF Radiology Impression Discussion of test interpretation with radiology: I have reviewed the radiologist's reading. Radiologist Impression: CT abdomen pelvis w IV con IMPRESSION: No acute findings in the abdomen or pelvis. No inflammatory changes. No hydronephrosis or nephrolithiasis. Fleischner guidelines were followed. Dictated By:Madhav Livingston MD External Record Review External record reviewed: Other ([place] prescription monitoring program-no narcotics) Prescription Management I considered prescription management with: Pain Medication Chronic Conditions Patient?s care impacted by: Other (Fibromyalgia) Discharge Plan Discharge Clinical Impression: Abdominal pain Qualifiers: Abdominal location: lower abdomen, unspecified Qualified Code(s): R10.30 - Lower abdominal pain, unspecified Patient Disposition: Home, Self-Care Instructions: Abdominal Pain (ED) Additional Instructions: Your blood work was unremarkable. Your urine test was negative for infection The CT scan of your abdomen pelvis with IV contrast did not reveal a clear cause for your pain. Take Dilaudid (hydromorphone) 2 mg pills, 1 pill every 6 hours as needed for pain Dilaudid can cause itchiness, ache 25 mg is when you take a Dilaudid pill Follow-up with your doctor in 2 days. Please return to the emergency department if your symptoms get worse or if you develop any symptoms that are concerning to you. Prescriptions: New hydromorphone [Dilaudid] 2 mg tablet 2 mg PO Q6H PRN (Reason: pain) Qty: 10 0RF Rx Instructions: Patient may request partial fill; Partial Fill upon patient request. No Action albuterol sulfate 2.5 mg /3 mL (0.083 %) solution for nebulization 2.5 mg continuous nebulization Q6H PRN (Reason: shortness of breath or wheezing) 30 Days Qty: 180 11RF albuterol sulfate 90 mcg/actuation HFA aerosol inhaler 2 puff inhalation Q6H PRN (Reason: shortness of breath or wheezing) 30 Days Qty: 8.5 12RF miscellaneous medical supply Mis 1 ea miscellaneous DAILY Qty: 1 0RF Rx Instructions: Hand Held Shower Head miscellaneous medical supply [facility] 1 ea miscellaneous DAILY Qty: 1 0RF Rx Instructions: Raised toilet seat with arms miscellaneous medical supply [facility] 1 ea miscellaneous DAILY Qty: 1 0RF Rx Instructions: 18 inch Bathroom Grab Bar miscellaneous medical supply [facility] 1 ea miscellaneous DAILY Qty: 1 0RF Rx Instructions: Non skid Bath rug miscellaneous medical supply [facility] 1 ea miscellaneous DAILY Qty: 1 0RF Rx Instructions: Non skid bath mat (DME) ADULT PULL-UPS -- MEDIUM SIZE See Rx Instructions .Route .MEDSUPPLY Qty: 100 12RF Rx Instructions: As directed miscellaneous medical supply [facility] 1 ea miscellaneous DAILY Qty: 1 0RF Rx Instructions: Quad Cane (DME) QUAD CANE See Rx Instructions .Route .MEDSUPPLY Qty: 1 0RF Rx Instructions: As directed lidocaine 5 % adhesive patch,medicated 1 patch topical DAILY Qty: 30 0RF Rx Instructions: leave on most painful area for up to 12 hrs nitrofurantoin monohyd/m-cryst [Macrobid] 100 mg capsule 100 mg PO Q12H 7 Days Qty: 14 0RF Rx Instructions: must administer with a meal/food ergocalciferol (vitamin D2) [Vitamin D2] 1,250 mcg (50,000 unit) capsule 1,250 mcg PO QWEEK Qty: 4 3RF (DME) cane Device See Rx Instructions .Route Qty: 1 0RF Rx Instructions: cane with 4 legs buspirone 10 mg tablet 10 mg PO BID 30 Days Qty: 60 3RF cyanocobalamin (vitamin B-12) 1,000 mcg tablet 1,000 mcg PO DAILY 90 Days Qty: 90 3RF loratadine 10 mg tablet 10 mg PO DAILY PRN (Reason: allergy symptoms) 30 Days Qty: 30 5RF pantoprazole 40 mg tablet,delayed release (DR/EC) 40 mg PO DAILY Qty: 90 3RF pregabalin 150 mg capsule 150 mg PO TID 30 Days Qty: 90 1RF bupropion HCl 100 mg tablet sustained-release 12 hr 200 mg PO BID Qty: 112 2RF nortriptyline 25 mg capsule 25 mg PO BID 30 Days Qty: 60 2RF duloxetine 30 mg capsule,delayed release(DR/EC) 30 mg PO DAILY 30 Days Qty: 30 1RF (DME) QUAD CANE See Rx Instructions .Route .MEDSUPPLY Qty: 1 0RF Rx Instructions: As directed hydroxyzine HCl 25 mg tablet 25 mg PO TID PRN (Reason: anxiety) 30 Days Qty: 90 3RF meloxicam 15 mg tablet 15 mg PO DAILY Qty: 14 0RF prednisone 20 mg tablet 40 mg PO DAILY 5 Days Qty: 10 0RF albuterol sulfate 90 mcg/actuation HFA aerosol inhaler 2 puff inhalation Q6H PRN (Reason: shortness of breath or wheezing) Qty: 6.7 12RF cefpodoxime 200 mg tablet 200 mg PO BID Rx Instructions: must administer with a meal/food for 7 days lorazepam 0.5 mg tablet 0.5 mg PO TID PRN (Reason: anxiety) 30 Days Qty: 90 0RF nystatin 100,000 unit/gram powder 1 appl topical TID 10 Days Qty: 60 2RF
[2023-01-08 18:41] VITALS: BP 136/82; PULSE 84; RESP 16; TEMP 36.4; O2SAT 98; BMI 34.9
--- NOTE | 2023-01-08 19:10 | MHC.EDTECH ---
This tech brought pt into triage labs were obtained,patient was unable to give a urine sample at this time, will re- attempt. medical i d sales aware
[2023-01-08 20:38] VITALS: BP 128/55; PULSE 74; RESP 18; TEMP 37.1; O2SAT 97
--- NOTE | 2023-01-08 20:39 | MHC.EDTECH ---
This tech assumed care of pt at 1999, Hourly rounded completed,vitals taken, This tech attempted to get a UAcc from pt she is unable to give at this time. RN aware
--- NOTE | 2023-01-08 20:57 | PC.NURSE ---
20g IV placed in R AC. pt calm and cooperative. family at bedside. pt medicated according to mar. pt placed on laboratory monitor and pulse ox. pt awaiting to go to CT
[2023-01-08 22:03] VITALS: BP 119/68; PULSE 72; RESP 16; TEMP 36.9; O2SAT 96
--- NOTE | 2023-01-08 22:04 | MHC.EDTECH ---
Hourly rounding completed, vitals taken and pt assisted to commode and UACC obtained and sent to lab. Pt laying in stretcher at this time and call redd is within reach.
[2023-01-08 23:26] VITALS: BP 110/67; PULSE 70; RESP 16; TEMP 37; O2SAT 97
== END 2023-01-09 00:36 | disposition home or self-care (01) ==
PROVIDERS: Emergency Provider Emergency Medicine Emergency Medical Services; PCP Internal Medicine
DX: R10.32 Left lower quadrant pain (principal); E66.9 Obesity, unspecified; Z68.34 Body mass index [BMI] 34.0-34.9, adult; Z79.899 Other long term (current) drug therapy
CPT/HCPCS: 36415; 74177; 80053; 81001; 83690; 85025; 96361; 96374; 96375; 96376; 99284; J1170; J1200; J2405; Q9967

== ENCOUNTER 2023-01-14 21:24 | Emergency (ER) | payer OTHER, MEDICAID, SELFPAY ==
[2023-01-14 21:28] VITALS: BP 130/62; PULSE 100; O2SAT 100
[2023-01-14 21:39] VITALS: BP 130/62; PULSE 100; O2SAT 100
[2023-01-14 22:24] VITALS: BP 122/69; PULSE 83; RESP 16; TEMP 36.1; O2SAT 97; BMI 32.3
[2023-01-14 23:04] LABS: Basophils Percent Auto 0.4 % (0-2); Mean Corpuscular Volume 87.3 fL (80.0-98.0); PLT CLUMP 1; Red Cell Distribution Width 14.5 % (11.0-16.0); SCAN SMEAR FLAG 1
[2023-01-14 23:06] LABS: Eosinophils Absolute Auto 0.2 X10*3/uL (0.0-0.4); Eosinophils Percent Auto 2.4 % (0-4); Hematocrit 41.3 % (37.0-47.0); Hemoglobin 13.3 g/dl (12.0-16.0); Imm Gran Abs Auto 0.01 X10*3/uL (0.00-0.03); Imm Gran Pct Auto 0.1 % (0.0-0.4); Lymphocytes Absolute Auto 2.5 X10*3/uL (1.2-4.9); Lymphocytes Percent Auto 35.1 % (20-40); MANUAL DIFF FLAG SCAN; Mean Corpuscular HGB Conc 32.2 g/dl (31.0-35.0); Mean Corpuscular Hemoglobin 28.1 pg (27.0-33.0); Mean Platelet Volume 11.5 fL (9.4-12.3); Monocytes Absolute Auto 0.6 X10*3/uL (0.1-1.2); Monocytes Percent Auto 8.8 % (2-11); Neutrophils Absolute Auto 3.7 x10*3/uL (2.0-8.3); Neutrophils Percent Auto 53.2 % (45-73); Red Blood Count 4.73 X10*6/uL (4.20-5.50)
[2023-01-14 23:22] LABS: Anion Gap 16 (12-20); Blood Urea Nitrogen 15 mg/dL (9-16); Calcium 9.3 mg/dL (8.4-10.2); Carbon Dioxide 21 mmol/L (22-29); Chloride 105 mmol/L (96-108); Creatinine Clr Calc Pharmacy 80.4; Estimated Glomerular Filt Rate > 60; Glucose Random 143 mg/dL (60-115); Potassium 4.1 mmol/L (3.3-5.1); Sodium 138 mmol/L (135-145)
[2023-01-14 23:25] LABS: Platelet Count 174 X10*3/uL (160-400)
[2023-01-14 23:26] LABS: SLIDE REVIEW VERIFIED
== END 2023-01-15 07:12 | disposition left against medical advice (07) ==
LOC: HO.ED 01-15 07:10
PROVIDERS: Emergency Provider Emergency Medicine
DX: R10.9 Unspecified abdominal pain (principal)
CPT/HCPCS: 36415; 80048; 85025; 99281; 99283

== ENCOUNTER 2023-01-27 11:47 | Outpatient (AMB) | payer OTHER, SELFPAY ==
[2023-01-27 12:33] VITALS: BP 126/80; PULSE 90; O2SAT 98; BMI 35.2
--- NOTE | 2023-01-27 12:33 | A.OFFPC_ITS ---
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 Accompanied by: Self / Same As Patient Allergies codeine [Tylenol-Codeine #3] Allergy (Intermediate, Verified 02/13/23 05:34) Rash morphine Allergy (Intermediate, Verified 02/13/23 05:34) rash and itching nalbuphine [From Nubain] Allergy (Intermediate, Verified 02/13/23 05:34) Rash oxycodone [Percocet] Allergy (Intermediate, Verified 02/13/23 05:34) Rash propoxyphene [From Darvocet-N 100] Allergy (Intermediate, Verified 02/13/23 05:34) Rash tramadol [Ultram] Allergy (Intermediate, Verified 02/13/23 05:34) Rash ibuprofen [From Motrin] Allergy (Mild, Verified 02/13/23 05:34) RASH montelukast [Singulair] Allergy (Unknown, Verified 02/13/23 05:34) Unknown Medication List - Last Reconciled 02/13/23 by Henrique Soler MD [ADULT PULL-UPS -- MEDIUM SIZE As directed] albuterol sulfate 2.5 mg (3 mL) continuous nebulization Q6H PRN 30 days albuterol sulfate 90 mcg/actuation 2 puffs inhalation Q6H PRN 30 days albuterol sulfate 90 mcg/actuation 2 puffs inhalation Q6H PRN bupropion HCl 200 mg (2 x 100 mg) PO BID buspirone 10 mg PO BID 30 days cane cane with 4 legs cefpodoxime 200 mg PO BID cyanocobalamin (vitamin B-12) 1,000 mcg PO DAILY 90 days duloxetine 30 mg PO DAILY 30 days [dyclomine 1 tab PO 3XD] ergocalciferol (vitamin D2) (Vitamin D2) 1,250 mcg PO QWEEK hydromorphone (Dilaudid) 2 mg PO Q6H PRN hydroxyzine HCl 25 mg PO TID PRN 30 days lidocaine 5% 1 patch topical DAILY loratadine 10 mg PO DAILY PRN 30 days lorazepam 0.5 mg PO TID PRN 30 days meloxicam 15 mg PO DAILY miscellaneous medical supply 1 ea miscellaneous DAILY miscellaneous medical supply 1 ea miscellaneous DAILY miscellaneous medical supply 1 ea miscellaneous DAILY miscellaneous medical supply 1 ea miscellaneous DAILY miscellaneous medical supply 1 ea miscellaneous DAILY miscellaneous medical supply 1 ea miscellaneous DAILY nitrofurantoin monohyd/m-cryst 100 mg (Macrobid) 100 mg PO Q12H 7 days nortriptyline 25 mg PO BID 30 days nystatin 1 appl topical TID 10 days pantoprazole 40 mg PO DAILY prednisone 40 mg (2 x 20 mg) PO DAILY 5 days pregabalin 150 mg PO TID 30 days [QUAD CANE As directed] [QUAD CANE As directed] Tobacco use date assessed: 01/27/23 Fall risk assessment: 2 + Falls in past year Last assessed Fall Risk: 01/27/23 Dental Screening Dental Screen Date: 01/27/23 Did you have a dental visit in the last 12 months?: Yes Did you have a dental problem in the last 6 months where you did not have access to dental care?: No Was dental information given to patient?: Patient has dentist HPI Annual PE HPI Details Patient comes in today for her annual physical examination Went to the ER at [facility] last week on 01/22/2023 for left-sided abdominal pain Brief work ups done initially came out okay and she was sent home with Rx for Dicyclomine 20 mg, which helps somewhat but states that she just got a call back from the ER earlier today informing her that her urine culture came back positive for a UTI and an Ab Rx will be sent in for her to the pharmacy for this Patient states that she feels okay otherwise She denies any headaches or dizziness Denies any chest pains, no shortness of breath No nausea /vomiting and no change in bowel habits noted Denies any acute urinary symptoms States that she still her chronic joint pains and low back pain - states that her current medications help somewhat but there are days when they do not help much Has not had a colonoscopy done in years - recalls having one done when she was still living in [place] many years ago and she has been residing [place] in the [place] for about 15 to 18 years now Had her last mammogram done in October 2022 Has not had her pap smear done in a few years and states that she has never had a BMD done in the past [facility] Medical History Allergic rhinitis Anxiety Asthma Depression Fibromyalgia GERD without esophagitis Insomnia Lumbar spondylosis Migraine Multiple joint pain Non-toxic multinodular goiter Obesity (BMI 30-39.9) Primary osteoarthritis of both knees Pure hypercholesterolemia Rotator cuff tear, left Urinary incontinence Vitamin D deficiency Surgical History History of cholecystectomy History of hysterectomy History of laminectomy (~2009) S/P rotator cuff repair Status post right rotator cuff repair (~07/26/18) Status post rotator cuff surgery Family History Father Diabetes Mother Medical history unknown Social History Household Members: None Housing: Apartment Do you presently have visiting nurse or other home services: No Alcohol intake: former Patient Tobacco Use Status: Never used Tobacco e-Cigarette/Vaping Use: Never Used Second Hand Smoke Exposure: No service: No Current occupational status: disabled Cognitive needs: Yes (cane) Hearing needs: No Vision needs: Yes Questionnaire PHQ-9 Over the last 2 weeks, how often have you been bothered by any of the following problems? 1. Little interest or pleasure in doing things: not at all 2. Feeling down, depressed, or hopeless: not at all 3. Trouble falling or staying asleep, or sleeping too much: not at all 4. Feeling tired or having little energy: not at all 5. Poor appetite or overeating: not at all 6. Feeling bad about yourself - or that you are a failure or have let yourself or your family down: not at all 7. Trouble concentrating on things, such as reading the newspaper or watching television: not at all 8. Moving or speaking so slowly that other people could have noticed. Or the opposite - being so fidgety or restless that you have been moving around a lot more than usual: not at all 9. Thoughts that you would be better off or of hurting yourself in some way: not at all Total score: 0 Depression Screening Interpretation: Negative 14077 - PHQ-9 Billing: Yes Source: Developed by Drs. Lang Pacheco, Filemon Quinn and colleagues, with an educational juvenal from [employer]. Thrive Questionnaire Date Thrive assessed: 01/27/23 I am a: Patient What is your living situation today?: I have a steady place to live Within the past 12 months, did the food you bought not last and you didn't have the money to get more?: Never true Within the past 12 months, did you worry whether your food would run out before you got money to buy more?: Never true Do you have trouble paying for medicines?: No Do you have trouble getting transportation to medical appointments?: No Do you have trouble paying your heating and electricity bill?: No Do you have trouble taking care of your child, family member or friend?: No Do you have trouble with day-to-day activities such as bathing, preparing meals, shopping, managing finances, etc.?: No Are you currently unemployed and looking for a job?: No Are you interested in more education?: No Currently or been in a relationship where the following occur: no concerns reported AUDIT C Alcohol Use Questionnaire (AUDIT-C) 1. How often do you have a drink containing alcohol?: Never 3. How often do you have six or more drinks on one occasion?: Never Total Score: 0 Score Reviewed/Action Taken: Yes FLACO-7 AMB Questionnaire FLACO-7 Date FLACO - 7 assessed: 01/27/23 Feeling nervous, anxious, or on edge: 0 = Not at all Not being able to stop or control worryin = Not at all Worrying too much about different things: 0 = Not at all Trouble relaxin = Not at all Being so restless that it is hard to sit still: 0 = Not at all Becoming easily annoyed or irritable: 0 = Not at all Feeling afraid as if something awful might happen: 0 = Not at all Total FLACO-7 score (0-4 normal; 5-9 mild; 10-14 moderate; 15-21 severe): 0 Source: Developed by Drs. Lang Pacheco, Filemon Quinn and colleagues, with an educational juvenal from [employer]. Review of Systems Const Denies chills, Reports fatigue, Denies fever(s), Denies headache(s) and Denies malaise Eyes Denies blurry vision, Denies change in vision, Denies irritation and Denies itchy eyes ENT Denies dysphagia, Denies dizziness, Denies otalgia, Denies headache(s), Denies nasal congestion, Reports neck pain, Denies odynophagia, Denies sinus pain and Denies sore throat Card Denies chest pain, Denies rapid heart rate, Denies irregular heart rhythm, Denies palpitations and Denies dyspnea Resp Denies chest congestion, Denies cough, Denies dyspnea and Denies wheezing GI Reports abdominal pain (left-sided, on and off), Denies bloating, Denies constipation, Denies dysphagia, Denies heartburn, Denies diarrhea, Denies nausea, Denies odynophagia and Denies vomiting Denies hematuria, Denies urinary frequency, Denies dysuria, Denies urinary incontinence and Denies urinary urgency Musc Reports back pain (over the lumbar spine - increasing ), Reports arthralgias (left shoulder - S/P surgery in 03/2021), Reports neck pain and Reports stiffness (left shoulder) Skin/Breast Denies breast pain, Denies breast mass, Denies change in pigmentation, Denies lesions, Denies rash and Denies unusual bruising Neuro Denies dizziness, Denies headache(s) and Denies paresthesias Psych Denies anxiety and Denies depression Endo Reports fatigue and Denies palpitations Corona/Lymph Denies easy bruising Aller/Immun Denies itchy eyes and Denies wheezing Physical exam (Primary Care) Vital Signs: Last Vital Signs Pulse 90 01/27/23 12:33 BP 126/80 01/27/23 12:33 Pulse Ox 98 01/27/23 12:33 Oxygen Delivery Method Room Air 01/27/23 12:33 BMI result Body Mass Index 35.2 Tobacco/Smoking Status: Tobacco use Status Tobacco use date assessed 01/27/23 01/27/23 12:43 Patient Tobacco Use Status Never used Tobacco 01/27/23 12:43 Tobacco use type 09/13/22 08:33 e-Cigarette/Vaping Use Never Used 01/27/23 12:43 PHQ-9: PHQ-9 Score PHQ-9: Total score 0 01/27/23 13:09 Depression Screening Interpretation: Negative Thrive Assessment: Date of Thrive Assessment Date Thrive assessed 01/27/23 01/27/23 12:43 Currently or been in a relationship where the following occur: no concerns reported Const General: no acute distress, alert and awake Orientation/consciousness: patient oriented x3 HENMT Head: Yes normocephalic and Yes atraumatic Ears: external ears normal, TM's normal bilaterally and EAC's normal General nose exam: No nasal discharge present Face and sinus: Yes normal facial exam and Yes sinuses nontender Teeth and gingiva: dentition normal Throat: Yes posterior oropharynx normal and Yes tonsils normal (no TP congestion) Eyes Eyelids: Yes eyelids normal Conjunctivae: conjunctivae normal Pupils: Equal, round and reactive pupils present EOM: EOMs intact bilaterally Neck Neck: Yes no lymphadenopathy and Yes supple Thyroid: Thyroid normal Resp Auscultation: clear to auscultation bilaterally, no rales and no wheezes Cardio Rate: regular rate Rhythm: regular rhythm Heart sounds: no murmurs GI Palpation (GI): Soft to palpation, Tenderness to palpation present (GI) (mild - left-sided), no guarding, not rigid, No hepatosplenomegaly present and No Rebound tenderness present Auscultation: normal bowel sounds General: Yes no CVA tenderness Back/Spine/Pelvis Back: no CVA tenderness Cervical Spine: cervical muscular tenderness and Cervical spine tenderness Thoracic/Lumbar Spine: paraspinal muscle tenderness bilaterally in the upper thoracic, in the mid lumbar and in the lower lumbar and lumbar spinal tenderness Skin Lesions: no lesions Rashes: no rashes Neuro General: patient oriented x3, moves all extremities, no focal motor deficits and CN's II-XI intact bilaterally Cranial nerves: Yes Equal, round and reactive pupils present Cognition (Neuro): normal cognition Gait exam (Neuro): Normal gait present Extrem General: Yes no clubbing, cyanosis or edema Left upper extremity: shoulder/upper arm Details: tenderness Location: of the A- C joint and normal ROM; no swelling Assessment and Plan Assessment & Plan (1) Annual physical exam: Code(s): Z00.00 - Encounter for general adult medical examination without abnormal findings Plan: Check labs (2) Pure hypercholesterolemia: Code(s): E78.00 - Pure hypercholesterolemia, unspecified Plan: Her cholesterol levels were slightly elevated back in late 2020; numbers were slightly better when most recently rechecked in September 2022 Patient had cardiac testing done last year in April 2022 - stress testing and nuclear scans all came back negative/normal Reinforced low cholesterol diet Will send her for repeat labs and fasting lipids CARI for follow up (3) Asthma: Code(s): J45.909 - Unspecified asthma, uncomplicated Qualifiers: Asthma severity: mild Asthma persistence: persistent Asthma complication type: uncomplicated Qualified Code(s): J45.30 - Mild persistent asthma, uncomplicated Plan: Stable Continue Flovent HFA 110 mcg 1 inhalation BID and Albuterol HFA 2 puffs 4 times a day as needed; also uses Albuterol nebulization as needed (4) Migraine: Code(s): G43.909 - Migraine, unspecified, not intractable, without status migrainosus Qualifiers: Migraine type: unspecified Status migrainosus presence: without status migrainosus Intractability: not intractable Qualified Code(s): G43.909 - Migraine, unspecified, not intractable, without status migrainosus Plan: Stable on prophylactic Tx Continue Topiramate 25 mg BID and Nortriptyline 25 mg Q HS Reinforced avoidance of migraine triggers (5) Benign paroxysmal vertigo: Code(s): H81.10 - Benign paroxysmal vertigo, unspecified ear Qualifiers: Laterality: unspecified laterality Qualified Code(s): H81.10 - Benign paroxysmal vertigo, unspecified ear Plan: Patient has on and off dizziness and is sent to physical therapy for canalith positioning when needed Continue Meclizine 25 mg TID PRN (6) Lumbar spondylosis: Code(s): M47.816 - Spondylosis without myelopathy or radiculopathy, lumbar region Plan: Reinforced activity and weight-lifting restrictions Continue Methocarbamol 750 mg TID PRN and Duloxetine 30 mg QD MRI of the lumbar spine last done in 05/2021 revealed s/p instrumented fusion at the L2-L3 level with laminectomy changes, with no significant canal or foraminal compromise, stable in appearance. Stable discogenic degenerative changes at multiple levels, with stable multilevel bilateral facet arthropathy. Multilevel disc bulging and foraminal disc protrusions are again noted, similar to the previous exam with no significant central spinal canal stenosis. No significant neural foraminal stenosis. No abnormal enhancement within the limitations of the study. Repeat lumbar spine x-rays done at [facility] last year showed stable post-op changes with no acute findings Follow up with Pain Management as scheduled - is going to have a trial of ROSARIO soon (7) Fibromyalgia: Code(s): M79.7 - Fibromyalgia Plan: Encouraged again on regular exercise and physical activity to help manage her fibromyalgia symptoms better Continue Pregabalin 150 mg TID, Nortriptyline 25 mg QHS and Duloxetine 30 mg QD Was seen at [facility] Rheumatology by Dr. Darnell many years ago and she has not been back in a few years - was referred back, per request, last year but she has not yet been seen nor scheduled for appointment (8) Rotator cuff tear arthropathy of left shoulder: Comment: S/P left rotator cuff surgery in September [address] Velázquez Code(s): M75.102 - Unspecified rotator cuff tear or rupture of left shoulder, not specified as traumatic; M12.812 - Other specific arthropathies, not elsewhere classified, left shoulder Plan: Was seen previously by orthopedics and was recommended to continue gentle physical therapy of her left shoulder but patient states that this did not really help much Follow up with orthopedics as scheduled (9) Primary osteoarthritis of both knees: Code(s): M17.0 - Bilateral primary osteoarthritis of knee Plan: Follow up with orthopedics as scheduled Has knee braces that she wears as needed for added stability to her knees and to help reduce her knee pain (10) Vitamin B12 deficiency: Code(s): E53.8 - Deficiency of other specified B group vitamins Plan: Continue Vitamin B12 1000 mcg QD (11) Allergic rhinitis: Code(s): J30.9 - Allergic rhinitis, unspecified Qualifiers: Allergic rhinitis trigger: unspecified Allergic rhinitis seasonality: unspecified Qualified Code(s): J30.9 - Allergic rhinitis, unspecified Plan: Continue Loratadine 10 mg QD PRN (12) GERD without esophagitis: Code(s): K21.9 - Gastro-esophageal reflux disease without esophagitis Plan: Dietary restrictions reinforced Continue Pantoprazole 40 mg QD (13) Vitamin D deficiency: Code(s): E55.9 - Vitamin D deficiency, unspecified Plan: Continue Vitamin D2 03947 units once a week (14) Urinary tract infection: Code(s): N39.0 - Urinary tract infection, site not specified Qualifiers: Urinary tract infection type: site unspecified Hematuria presence: without hematuria Qualified Code(s): N39.0 - Urinary tract infection, site not specified Plan: She was reportedly contacted by someone at the ER at [facility] earlier today and informed that her urine test came back with findings of a urinary tract infection States that she was going to have some antibiotic prescription called in by them and will start on it as soon as she gets her prescription filled Patient is encouraged to increase her oral fluids (15) Insomnia: Comment: was on Trazodone 150 mg in the past but has not refilled Rx since 2016 Code(s): G47.00 - Insomnia, unspecified Qualifiers: Insomnia type: unspecified Qualified Code(s): G47.00 - Insomnia, unspecified Plan: Sleep hygiene reinforced Continue Trazodone 100 mg Q HS (16) Anxiety: Code(s): F41.9 - Anxiety disorder, unspecified Plan: Continue Lorazepam 0.5 mg TID PRN (Rx refilled), Hydroxyzine 25 mg TID PRN and Buspirone 10 mg BID Follow up with psychiatry as scheduled (17) Depression: Code(s): F32.9 - Major depressive disorder, single episode, unspecified Qualifiers: Depression Type: unspecified Qualified Code(s): F32.9 - Major depressive disorder, single episode, unspecified Plan: Continue Budeprion SR 100 mg 2 tablets BID Follow up with psychiatry as scheduled (18) Obesity (BMI 30-39.9): Code(s): E66.9 - Obesity, unspecified Plan: Reinforced diet; weight loss and exercise are unrealistic given patient's multiple physical issues and limited activity tolerance (19) Colon cancer screening: Code(s): Z12.11 - Encounter for screening for malignant neoplasm of colon Plan: Will refer her to gastroenterology for screening colonoscopy (20) Cervical cancer screening: Code(s): Z12.4 - Encounter for screening for malignant neoplasm of cervix Plan: Will refer her to [facility] for annual Pap smear 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 Panel Fast 01/27/23 E78.00 - Pure hypercholesterolemia, unspecified, Z00.00 - Encounter for general adult medical examination without abnormal findings Hemoglobin A1c 01/27/23 Z00.00 - Encounter for general adult medical examination without abnormal findings, R73.01 - Impaired fasting glucose Lipid Panel 01/27/23 E78.00 - Pure hypercholesterolemia, unspecified, Z00.00 - Encounter for general adult medical examination without abnormal findings TSH reflex Free T4 01/27/23 E78.00 - Pure hypercholesterolemia, unspecified, Z00.00 - Encounter for general adult medical examination without abnormal findings Vitamin D 25-OH Total 01/27/23 E55.9 - Vitamin D deficiency, unspecified, Z00.00 - Encounter for general adult medical examination without abnormal findings Complete Blood Count Auto Diff 01/27/23 Z00.00 - Encounter for general adult medical examination without abnormal findings UA CC w/rflx Micro + Cult 01/27/23 R30.0 - Dysuria, Z00.00 - Encounter for general adult medical examination without abnormal findings Referrals Gastroenterology Referral Z12.11 - Encounter for screening for malignant neoplasm of 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 Z12.4 - Encounter for screening for malignant neoplasm of cervix Coding Level of Care Code Est Pt Prev Care >65y(94737) Diagnoses Annual physical exam Z00.00 Pure hypercholesterolemia E78.00 Asthma J45.30 Asthma severity: mild Asthma persistence: persistent Asthma complication type: uncomplicated Migraine G43.909 Migraine type: unspecified Status migrainosus presence: without status migrainosus Intractability: not intractable Benign paroxysmal vertigo H81.10 Laterality: unspecified laterality Lumbar spondylosis M47.816 Fibromyalgia M79.7 Rotator cuff tear arthropathy of left shoulder M75.102; M12.812 Primary osteoarthritis of both knees M17.0 Vitamin B12 deficiency E53.8 Allergic rhinitis J30.9 Allergic rhinitis trigger: unspecified Allergic rhinitis seasonality: unspecified GERD without esophagitis K21.9 Vitamin D deficiency E55.9 Urinary tract infection N39.0 Urinary tract infection type: site unspecified Hematuria presence: without hematuria Insomnia G47.00 Insomnia type: unspecified Anxiety F41.9 Depression F32.9 Depression Type: unspecified Obesity (BMI 30-39.9) E66.9 Colon cancer screening Z12.11 Cervical cancer screening Z12.4 Osteoporosis screening Z13.820
== END 2023-01-27 13:22 | disposition home or self-care (01) ==
PROVIDERS: PCP Internal Medicine; Visit Provider Internal Medicine
DX: Z00.00 Encounter for general adult medical examination without abnormal findings (principal); E78.00 Pure hypercholesterolemia, unspecified; J45.30 Mild persistent asthma, uncomplicated; G43.909 Migraine, unspecified, not intractable, without status migrainosus; H81.10 Benign paroxysmal vertigo, unspecified ear; M47.816 Spondylosis without myelopathy or radiculopathy, lumbar region; M79.7 Fibromyalgia; M75.102 Unspecified rotator cuff tear or rupture of left shoulder, not specified as traumatic; M12.812 Other specific arthropathies, not elsewhere classified, left shoulder; M17.0 Bilateral primary osteoarthritis of knee; E53.8 Deficiency of other specified B group vitamins; J30.9 Allergic rhinitis, unspecified
CPT/HCPCS: 99397

== ENCOUNTER 2023-02-20 13:49 | Outpatient (REF) | payer OTHER, SELFPAY ==
--- NOTE | ~2023-02-20 | MM_ITS ---
EXAMINATION: BONE DENSITOMETRY CLINICAL INDICATION: Menopause. COMPARISON: This is the patient's baseline examination. TECHNIQUE: Using a [employer] DXA System (software version: 13.1) manufactured by [employer], dual-energy x-ray absorptiometry was performed of the lumbar spine and left hip. The images are of good technical quality. Summary results are attached. FINDINGS: LEFT FEMUR, NECK: BMD 0.801 g/cm2, Z-score -0.9, T-score -1.7, osteopenia. LEFT FEMUR, TOTAL: BMD 0.955 g/cm2, Z-score 0.0, T-score -0.4, normal. AP SPINE L1-L4 (excluding L2 and L3): The data of L1-L4 has been changed to exclude the L2 and L3 vertebral bodies, because metallic hardware at these levels may cause overestimation of lumbar spine density. BMD 1.083 g/cm2, Z-score -0.2, T-score -0.7, normal. IDENTIFIED RISK FACTORS: Early menopause, bilateral oophorectomy, hysterectomy, recurrent falls, secondary osteoporosis. HISTORY OF FRACTURE: None listed. MEDICATIONS: Vitamin D. MM/XR DEXA axial skeleton IMPRESSION: 1. DIAGNOSIS: Osteopenia based on the lowest T-score value of -1.7 in the femoral neck applying World Health Organization criteria. 2. 10-YEAR FRACTURE RISK PREDICTION, FRAX: Major osteoporotic fracture (clinical spine, forearm, hip or shoulder) 5.0%. Hip fracture 0.6%. 3. Treatment Recommendations: NOF guidelines recommend consideration for treatment in postmenopausal women and men age 50 and older presenting with the following: -A hip or vertebral (clinical or morphometric) fracture. -T-score less than or equal to -2.5 at the femoral neck or spine after appropriate evaluation to exclude secondary causes. -Low bone mass at the hip or spine and a 10-year fracture probability by FRAX of greater than or equal to 3% for hip fracture or greater than or equal to 20% for major osteoporotic fracture based on the [place] adapted WHO algorithm. 4. Other Recommendations: All treatment decisions require clinical judgment and consideration of individual patient factors, including patient preferences, comorbidities, previous drug use, risk factors not captured in the FRAX model (e.g. frailty, falls, vitamin D deficiency, increased bone turnover, interval significant decline in bone density) and possible under or overestimation of fracture risk by FRAX. Additional medical evaluation for secondary cause of low bone mineral density may be appropriate. FUTURE SCAN RECOMMENDATION: People with diagnosed cases of osteoporosis or at high risk for fracture should have regular bone mineral density tests. For patients eligible for Medicare, routine testing is allowed once every 2 years. The testing frequency can be increased to one year for patients who have rapidly progressing disease, those who are receiving or discontinuing medical therapy to restore bone mass, or have additional risk factors.
== END 2023-02-20 13:50 | disposition home or self-care (01) ==
LOC: HO.MAMMO 13:49
PROVIDERS: Visit Provider Internal Medicine
DX: Z13.820 Encounter for screening for osteoporosis (principal); Z78.0 Asymptomatic menopausal state
CPT/HCPCS: 77080

== ENCOUNTER → 2023-02-20 14:00 | Outpatient (BNV) | payer OTHER, SELFPAY | PROVIDERS: Visit Provider Radiology Diagnostic Radiology | DX: Z78.0 Asymptomatic menopausal state (principal) | CPT/HCPCS: 77080 ==

== ENCOUNTER 2023-02-24 10:33 | Outpatient (AMB) | payer OTHER, SELFPAY ==
--- NOTE | 2023-02-24 13:00 | AM.OFFWIN_ITS ---
Intake Vital Signs 02/24/23 13:03 Weight 218 lb BP 126/90 H Blood Pressure Location Lt brachial Position Sitting Pulse 62 Pulse Source Pulse Oximeter Temp 97 F Temp Source Temporal Artery Scan Intake Visit Reasons: EP Unsteady gait, dizzy, nausea (Mask) Intake Note: Patient here for unsteady gait that started since friday, dizziness and nausea. Patient Tobacco Use Status: Never used Tobacco Allergies codeine [Tylenol-Codeine #3] Allergy (Intermediate, Verified 02/24/23 13:45) Rash morphine Allergy (Intermediate, Verified 02/24/23 13:45) rash and itching nalbuphine [From Nubain] Allergy (Intermediate, Verified 02/24/23 13:45) Rash oxycodone [Percocet] Allergy (Intermediate, Verified 02/24/23 13:45) Rash propoxyphene [From Darvocet-N 100] Allergy (Intermediate, Verified 02/24/23 13:45) Rash tramadol [Ultram] Allergy (Intermediate, Verified 02/24/23 13:45) Rash ibuprofen [From Motrin] Allergy (Mild, Verified 02/24/23 13:45) RASH montelukast [Singulair] Allergy (Unknown, Verified 02/24/23 13:45) Unknown Medication List - Last Reconciled 02/24/23 by Colin Khan MD [ADULT PULL-UPS -- MEDIUM SIZE As directed] albuterol sulfate 2.5 mg (3 mL) continuous nebulization Q6H PRN 30 days albuterol sulfate 90 mcg/actuation 2 puffs inhalation Q6H PRN 30 days albuterol sulfate 90 mcg/actuation 2 puffs inhalation Q6H PRN bupropion HCl 200 mg (2 x 100 mg) PO BID buspirone 10 mg PO BID 30 days cane cane with 4 legs cefpodoxime 200 mg PO BID cyanocobalamin (vitamin B-12) 1,000 mcg PO DAILY 90 days duloxetine 30 mg PO DAILY 30 days [dyclomine 1 tab PO 3XD] ergocalciferol (vitamin D2) (Vitamin D2) 1,250 mcg PO QWEEK hydromorphone (Dilaudid) 2 mg PO Q6H PRN hydroxyzine HCl 25 mg PO TID PRN 30 days lidocaine 5% 1 patch topical DAILY loratadine 10 mg PO DAILY PRN 30 days lorazepam 0.5 mg PO TID PRN 30 days meloxicam 15 mg PO DAILY miscellaneous medical supply 1 ea miscellaneous DAILY miscellaneous medical supply 1 ea miscellaneous DAILY miscellaneous medical supply 1 ea miscellaneous DAILY miscellaneous medical supply 1 ea miscellaneous DAILY miscellaneous medical supply 1 ea miscellaneous DAILY miscellaneous medical supply 1 ea miscellaneous DAILY nitrofurantoin monohyd/m-cryst 100 mg (Macrobid) 100 mg PO Q12H 7 days nortriptyline 25 mg PO BID 30 days nystatin 1 appl topical TID 10 days pantoprazole 40 mg PO DAILY prednisone 40 mg (2 x 20 mg) PO DAILY 5 days pregabalin 150 mg PO TID 30 days [QUAD CANE As directed] [QUAD CANE As directed] Do you need a note to return to daycare/school/sports/work: No HPI EP Unsteady gait, dizzy, nausea (Mask) HPI Details 67-year-old female presents to the office for a sick visit. Patient comes to the exam room alone using a walker. She is complaining of dizziness for the past few days. Patient had called the nurse over the weekend who gave her IV fluids at home. Her symptoms of dizziness are persisting. No fall or injury. She lives alone by herself. [facility] Medical History Allergic rhinitis Anxiety Asthma Depression Fibromyalgia GERD without esophagitis Insomnia Lumbar spondylosis Migraine Multiple joint pain Non-toxic multinodular goiter Obesity (BMI 30-39.9) Primary osteoarthritis of both knees Pure hypercholesterolemia Rotator cuff tear, left Urinary incontinence Vitamin D deficiency Surgical History History of cholecystectomy History of hysterectomy History of laminectomy (~2009) S/P rotator cuff repair Status post right rotator cuff repair (~07/26/18) Status post rotator cuff surgery Family History Father Diabetes Mother Medical history unknown Social History Household Members: None Housing: Apartment Do you presently have visiting nurse or other home services: No Alcohol intake: former Patient Tobacco Use Status: Never used Tobacco e-Cigarette/Vaping Use: Never Used Second Hand Smoke Exposure: No service: No Current occupational status: disabled Cognitive needs: Yes (cane) Hearing needs: No Vision needs: Yes Physical Exam Vital Signs: Last Vital Signs Temp 97 F 02/24/23 13:03 Pulse 62 02/24/23 13:03 BP 126/90 H 02/24/23 13:03 Const General: cooperative and healthy appearing Nutritional Appearance: well nourished Orientation/consciousness: patient oriented x3 Limitations: no limitations HEENT Head: Yes normal to inspection Eyes General: appearance normal, both eyes and all related structures Neck Neck: Yes normal visual inspection Chest Chest palpation & inspection: normal palpation of entire chest wall Resp Effort & Inspection: normal respiratory effort Cardio Other: S1, S2. Tachycardia. Neuro General: patient oriented x3 Office Procedures EKG Details: Sinus tachycardia [id number], Complete Assessment & Plan Assessment & Plan (1) Dizziness: Code(s): R42 - Dizziness and giddiness Plan: EKG was unremarkable. Showed sinus tachycardia. Patient has blood work ordered from her primary care provider. Encouraged her to get it done. Reassurance. Orders: Orders AMB EKG-In Office Today R07.9 - Chest pain, unspecified Coding Level of Care Code Est Pt Level 4 (76539) Diagnoses Dizziness R42 CPT Codes EKG - CPT: 08099-[id number], Complete ([id number])
[2023-02-24 13:03] VITALS: BP 126/90; PULSE 62; TEMP 36.1
== END 2023-02-24 13:56 | disposition home or self-care (01) ==
PROVIDERS: PCP Internal Medicine; Visit Provider Internal Medicine
DX: R42 Dizziness and giddiness (principal)
CPT/HCPCS: 93000; 99214

== ENCOUNTER 2023-03-12 07:46 | Outpatient (REF) | payer OTHER, SELFPAY ==
[2023-03-12 08:03] LABS: MANUAL DIFF FLAG NO
[2023-03-12 08:21] LABS: Basophils Percent Auto 0.5 % (0-2); Eosinophils Absolute Auto 0.2 X10*3/uL (0.0-0.4); Eosinophils Percent Auto 3.2 % (0-4); Hematocrit 42.1 % (37.0-47.0); Hemoglobin 13.8 g/dl (12.0-16.0); Imm Gran Abs Auto 0.02 X10*3/uL (0.00-0.03); Imm Gran Pct Auto 0.3 % (0.0-0.4); Lymphocytes Absolute Auto 2.1 X10*3/uL (1.2-4.9); Lymphocytes Percent Auto 35.6 % (20-40); Mean Corpuscular HGB Conc 32.8 g/dl (31.0-35.0); Mean Corpuscular Hemoglobin 28.5 pg (27.0-33.0); Mean Corpuscular Volume 86.8 fL (80.0-98.0); Mean Platelet Volume 10.4 fL (9.4-12.3); Monocytes Absolute Auto 0.6 X10*3/uL (0.1-1.2); Monocytes Percent Auto 9.2 % (2-11); Neutrophils Absolute Auto 3.1 x10*3/uL (2.0-8.3); Neutrophils Percent Auto 51.2 % (45-73); Platelet Count 324 X10*3/uL (160-400); Red Blood Count 4.85 X10*6/uL (4.20-5.50); Red Cell Distribution Width 14.9 % (11.0-16.0)
[2023-03-12 08:54] LABS: Estimated Average Glucose 128 mg/dL; Hemoglobin A1c % 6.1 % (<6.0)
[2023-03-12 09:06] LABS: Alanine Aminotransferase 19 U/L (0-31); Alkaline Phosphatase 97 U/L (39-117); Anion Gap 11 (12-20); Aspartate Amino Transferase 20 U/L (5-31); Bilirubin Total 0.4 mg/dL (0.0-1.0); Blood Urea Nitrogen 16 mg/dL (9-16); Calcium 9.5 mg/dL (8.4-10.2); Carbon Dioxide 28 mmol/L (22-29); Chloride 104 mmol/L (96-108); Cholesterol 194 mg/dL (<200); Estimated Glomerular Filt Rate > 60; Glucose Fasting 120 mg/dL (60-99); HDL Cholesterol 72 mg/dL (>40); LDL Cholesterol Calculated 110 mg/dL (<100); Potassium 4.3 mmol/L (3.3-5.1); Sodium 139 mmol/L (135-145); Triglycerides 63 mg/dL (<150)
[2023-03-12 09:20] LABS: TSH reflex Free T4 4.63 uIU/mL (0.32-4.0); Vitamin D 25-OH Total 26.9 ng/mL (>30)
[2023-03-12 09:55] LABS: Free T4 (Free Thyroxine) 0.85 ng/dL (0.71-1.85)
[2023-03-12 10:18] LABS: Appearance Urine Cloudy; Color Urine Yellow; Glucose Urine UA Negative (Negative); Leukocyte Esterase Urine Small (1+) (Negative); Nitrite Urine Negative (Negative); PH 5.5 (5.0-9.0); UMIC TRIGGER UACC YES; Urine Blood Trace (Negative); Urine Ketones Negative (Negative); Urine Protein Negative (Neg-Trace)
[2023-03-12 10:22] LABS: Bacteria Urine 4+ (None Seen); RBC Urine 0-2 /HPF (0-2); Squamous Epithelial Cell Urine >20 /HPF (0-2); UACC Culture Trigger YES; WBC Urine 21-50 /HPF (0-5)
== END 2023-03-12 07:47 | disposition home or self-care (01) ==
LOC: HO.LAB 07:46
PROVIDERS: PCP Internal Medicine; Visit Provider Internal Medicine
DX: Z00.00 Encounter for general adult medical examination without abnormal findings (principal); E78.00 Pure hypercholesterolemia, unspecified; E55.9 Vitamin D deficiency, unspecified; R73.01 Impaired fasting glucose; R30.0 Dysuria
CPT/HCPCS: 36415; 80053; 80061; 81001; 82306; 83036; 84439; 84443; 85025; 87086; 87088; 87186

== ENCOUNTER 2023-04-15 16:47 | Outpatient (AMB) | payer OTHER, SELFPAY ==
--- NOTE | 2023-04-15 16:49 | A.OFFPC_ITS ---
Vital Signs 04/15/23 16:50 Height 5 ft 6 in Weight 218 lb 6 oz BMI 35.2 BP 110/82 Blood Pressure Location Lt brachial Position Sitting Pulse 105 H Pulse Source Pulse Oximeter Pulse Oximetry (%) 98 Oxygen Delivery Method Room Air Intake Visit Reasons: Jessica 04/06-04/07 due to fainting Bulk Mail Technician Required: No Accompanied by: Self / Same As Patient Allergies codeine [Tylenol-Codeine #3] Allergy (Intermediate, Verified 05/06/23 09:15) Rash morphine Allergy (Intermediate, Verified 05/06/23 09:15) rash and itching nalbuphine [From Nubain] Allergy (Intermediate, Verified 05/06/23 09:15) Rash oxycodone [Percocet] Allergy (Intermediate, Verified 05/06/23 09:15) Rash propoxyphene [From Darvocet-N 100] Allergy (Intermediate, Verified 05/06/23 09:15) Rash tramadol [Ultram] Allergy (Intermediate, Verified 05/06/23 09:15) Rash ibuprofen [From Motrin] Allergy (Mild, Verified 05/06/23 09:15) RASH montelukast [Singulair] Allergy (Unknown, Verified 05/06/23 09:15) Unknown Medication List - Last Reconciled 04/15/23 by Henrique Soler MD [ADULT PULL-UPS -- MEDIUM SIZE As directed] albuterol sulfate 2.5 mg (3 mL) continuous nebulization Q6H PRN 30 days albuterol sulfate 90 mcg/actuation 2 puffs inhalation Q6H PRN bupropion HCl 200 mg (2 x 100 mg) PO BID buspirone 10 mg PO BID 30 days cane cane with 4 legs cholecalciferol (vitamin D3) 50 mcg PO DAILY 90 days cyanocobalamin (vitamin B-12) 1,000 mcg PO DAILY 90 days duloxetine 30 mg PO DAILY 30 days [dyclomine 1 tab PO 3XD] ergocalciferol (vitamin D2) (Vitamin D2) 1,250 mcg PO QWEEK hydroxyzine HCl 25 mg PO TID PRN 30 days lidocaine 5% 1 patch topical DAILY loratadine 10 mg PO DAILY PRN 30 days lorazepam 0.5 mg PO TID PRN 30 days meloxicam 15 mg PO DAILY miscellaneous medical supply 1 ea miscellaneous DAILY miscellaneous medical supply 1 ea miscellaneous DAILY miscellaneous medical supply 1 ea miscellaneous DAILY miscellaneous medical supply 1 ea miscellaneous DAILY miscellaneous medical supply 1 ea miscellaneous DAILY miscellaneous medical supply 1 ea miscellaneous DAILY nortriptyline 25 mg PO BID 30 days nystatin 1 appl topical TID 10 days pantoprazole 40 mg PO DAILY pregabalin 150 mg PO TID 30 days [QUAD CANE As directed] [QUAD CANE As directed] [RUBBER TIPS FOR QUAD CANE As directed] Tobacco use date assessed: 04/15/23 Fall risk assessment: 2 + Falls in past year Last assessed Fall Risk: 04/15/23 Dental Screening Dental Screen Date: 04/15/23 Did you have a dental visit in the last 12 months?: Yes Did you have a dental problem in the last 6 months where you did not have access to dental care?: No Was dental information given to patient?: Patient has dentist GARRETT Lopez 04/06-04/07 due to fainting HPI Details Patient comes in today for her HDF follow up visit She went to the ER at [facility] early last week for further evaluation of a couple of syncopal episodes that she supposedly had over the past couple of days prior to her ER visit Patient thought that she just passed out and fell but could not provide any further details - states that she just woke up and found herself on the floor and in pain Reports also a couple of episodes of vomiting earlier in the day before her ER visit Patient at the time did not appear to have any fever and has had no headaches or dizziness prior to her passing out spells She was admitted to the hospital then for further evaluation Work ups done at the hospital included head and cervical spine CT, EKG and labs, all of which revealed no significant findings or abnormalities She even went for a brain MRI, which also came out negative Also had abdominal and pelvic CT done to look into her recurent nausea and vomiting then - CT came out negative She was eventually discharged home with instructions to follow up with her PCP States that she currently feels okay and has not had any further syncopal episodes since she was discharged home last week She presently denies any headaches or dizziness Denies any chest pains, no SOB Still has occasional nausea but denies any vomiting lately No change in bowel habits noted States that she needs a couple of her Rx refilled - Albuterol HFA and Lorazepam PFSH Medical History Pure hypercholesterolemia Allergic rhinitis Insomnia Multiple joint pain GERD without esophagitis Vitamin D deficiency Lumbar spondylosis Obesity (BMI 30-39.9) Migraine Primary osteoarthritis of both knees Urinary incontinence Rotator cuff tear, left Depression Asthma Fibromyalgia Non-toxic multinodular goiter Anxiety Surgical History Status post rotator cuff surgery S/P rotator cuff repair Status post right rotator cuff repair (~07/26/18) History of hysterectomy History of cholecystectomy History of laminectomy (~2009) Family History Father Diabetes Mother Medical history unknown Social History Household Members: None Housing: Apartment Do you presently have visiting nurse or other home services: No Alcohol intake: former Patient Tobacco Use Status: Never used Tobacco e-Cigarette/Vaping Use: Never Used Second Hand Smoke Exposure: No service: No Current occupational status: disabled Cognitive needs: Yes (cane) Hearing needs: No Vision needs: Yes Questionnaire PHQ-9 Over the last 2 weeks, how often have you been bothered by any of the following problems? 1. Little interest or pleasure in doing things: not at all 2. Feeling down, depressed, or hopeless: not at all 3. Trouble falling or staying asleep, or sleeping too much: not at all 4. Feeling tired or having little energy: not at all 5. Poor appetite or overeating: not at all 6. Feeling bad about yourself - or that you are a failure or have let yourself or your family down: not at all 7. Trouble concentrating on things, such as reading the newspaper or watching t elevision: not at all 8. Moving or speaking so slowly that other people could have noticed. Or the opposite - being so fidgety or restless that you have been moving around a lot more than usual: not at all 9. Thoughts that you would be better off or of hurting yourself in some way: not at all Total score: 0 Depression Screening Interpretation: Negative Depression Screening Done: Yes 35265 - PHQ-9 Billing: Yes Source: Developed by Drs. Lang Pacheco, Kelsey Lund, Filemon Grewal and colleagues, with an educational juvenal from [employer]. Thrive Questionnaire Date Thrive assessed: 04/15/23 I am a: Patient What is your living situation today?: I have a steady place to live Within the past 12 months, did the food you bought not last and you didn't have the money to get more?: Never true Within the past 12 months, did you worry whether your food would run out before you got money to buy more?: Never true Do you have trouble paying for medicines?: No Do you have trouble getting transportation to medical appointments?: No Do you have trouble paying your heating and electricity bill?: No Do you have trouble taking care of your child, family member or friend?: No Do you have trouble with day-to-day activities such as bathing, preparing meals, shopping, managing finances, etc.?: No Are you currently unemployed and looking for a job?: No Are you interested in more education?: No Please select the resources that you would like help with: None Currently or been in a relationship where the following occur: no concerns reported AUDIT C Alcohol Use Questionnaire (AUDIT-C) 1. How often do you have a drink containing alcohol?: Never 3. How often do you have six or more drinks on one occasion?: Never Total Score: 0 Score Reviewed/Action Taken: Yes FLACO-7 AMB Questionnaire FLACO-7 Date FLACO - 7 assessed: 04/15/23 Feeling nervous, anxious, or on edge: 0 = Not at all Not being able to stop or control worryin = Not at all Worrying too much about different things: 0 = Not at all Trouble relaxin = Not at all Being so restless that it is hard to sit still: 0 = Not at all Becoming easily annoyed or irritable: 0 = Not at all Feeling afraid as if something awful might happen: 0 = Not at all Total FLACO-7 score (0-4 normal; 5-9 mild; 10-14 moderate; 15-21 severe): 0 Source: Developed by Kelsey Monaco B.W. Kevon, Filemon Grewal and colleagues, with an educational juvenal from [employer]. Review of Systems Const Reports fatigue, Denies fever(s) and Denies headache(s) Eyes Denies blurry vision ENT Denies dysphagia, Denies dizziness, Denies otalgia, Denies headache(s), Reports neck pain, Denies odynophagia and Denies sore throat Card Denies syncope (no recurrence since last week), Denies rapid heart rate, Denies irregular heart rhythm, Denies palpitations and Denies dyspnea Resp Denies chest congestion, Denies cough, Denies dyspnea and Denies wheezing GI Denies abdominal pain, Denies constipation, Denies dysphagia, Denies diarrhea, Reports nausea (on and off), Denies odynophagia and Denies vomiting Denies hematuria, Denies urinary frequency, Denies dysuria, Denies urinary incontinence and Denies urinary urgency Musc Reports back pain (over the lumbar spine - increasing ), Reports arthralgias (left shoulder - S/P surgery in 03/2021), Reports neck pain and Reports stiffness (left shoulder) Skin/Breast Denies rash Neuro Denies dizziness, Denies syncope (no recurrence since last week), Denies headache(s) and Denies paresthesias Psych Denies anxiety and Denies depression Endo Reports fatigue and Denies palpitations Corona/Lymph Denies easy bruising Aller/Immun Denies wheezing Physical exam (Primary Care) Vital Signs: Last Vital Signs Pulse 105 H 04/15/23 16:50 BP 110/82 04/15/23 16:50 Pulse Ox 98 04/15/23 16:50 Oxygen Delivery Method Room Air 04/15/23 16:50 BMI result Body Mass Index 35.2 Tobacco/Smoking Status: Tobacco use Status Tobacco use date assessed 04/15/23 04/15/23 16:59 Patient Tobacco Use Status Never used Tobacco 04/15/23 16:59 Tobacco use type 04/08/23 13:12 e-Cigarette/Vaping Use Never Used 04/15/23 16:59 PHQ-9: PHQ-9 Score PHQ-9: Total score 0 04/15/23 17:13 Depression Screening Interpretation: Negative Thrive Assessment: Date of Thrive Assessment Date Thrive assessed 04/15/23 04/15/23 16:59 Currently or been in a relationship where the following occur: no concerns reported Const General: no acute distress and alert HENMT Head: Yes normal to inspection and No scalp tenderness Ears: TM's normal bilaterally and EAC's normal Throat: Yes posterior oropharynx normal and Yes tonsils normal (no TP congestion) Neck Neck: Yes no lymphadenopathy and Yes supple Thyroid: Thyroid normal Resp Auscultation: clear to auscultation bilaterally, no rales and no wheezes Cardio Rate: regular rate Rhythm: regular rhythm Heart sounds: no murmurs GI Palpation (GI): Soft to palpation and nontender Auscultation: normal bowel sounds General: Yes no CVA tenderness Back/Spine/Pelvis Back: no CVA tenderness Cervical Spine: cervical muscular tenderness and Cervical spine tenderness Thoracic/Lumbar Spine: paraspinal muscle tenderness bilaterally in the upper thoracic, in the mid lumbar and in the lower lumbar and lumbar spinal tenderness Skin Rashes: no rashes Extrem General: Yes no clubbing, cyanosis or edema Left upper extremity: shoulder/upper arm Details: tenderness Location: of the A- C joint and normal ROM; no swelling Assessment and Plan Assessment & Plan (1) Syncopal episodes: Code(s): R55 - Syncope and collapse Qualifiers: Syncope type: unspecified Qualified Code(s): R55 - Syncope and collapse Plan: Work ups done at [facility] last week, including head CT and MRI, cervical spine CT, EKG and labs, were all unrevealing Possible vasovagal since patient reported looking up and subsequently passing out, but overall etiology remains unclear It may also likely be related to polypharmacy as she is taking a lot of different medications daily Will consider referring to neurology for further evaluation if this keeps recurring (2) Asthma: Code(s): J45.909 - Unspecified asthma, uncomplicated Qualifiers: Asthma severity: mild Asthma persistence: persistent Asthma complication type: uncomplicated Qualified Code(s): J45.30 - Mild persistent asthma, uncomplicated Plan: Stable Continue Flovent HFA 110 mcg 1 inhalation BID and Albuterol HFA 2 puffs 4 times a day as needed; also uses Albuterol nebulization as needed (3) Migraine: Code(s): G43.909 - Migraine, unspecified, not intractable, without status migrainosus Qualifiers: Migraine type: unspecified Status migrainosus presence: without status migrainosus Intractability: not intractable Qualified Code(s): G43.909 - Migraine, unspecified, not intractable, without status migrainosus Plan: Stable on prophylactic Tx Continue Topiramate 25 mg BID and Nortriptyline 25 mg Q HS Reinforced avoidance of migraine triggers (4) Lumbar spondylosis: Code(s): M47.816 - Spondylosis without myelopathy or radiculopathy, lumbar region Plan: Reinforced activity and weight-lifting restrictions Continue Methocarbamol 750 mg TID PRN and Duloxetine 30 mg QD MRI of the lumbar spine last done in 05/2021 revealed s/p instrumented fusion at the L2-L3 level with laminectomy changes, with no significant canal or foraminal compromise, stable in appearance. Stable discogenic degenerative changes at multiple levels, with stable multilevel bilateral facet arthropathy. Multilevel disc bulging and foraminal disc protrusions are again noted, similar to the previous exam with no significant central spinal canal stenosis. No significant neural foraminal stenosis. No abnormal enhancement within the limitations of the study. Repeat lumbar spine x-rays done at [facility] last year showed stable post-op changes with no acute findings Follow up with Pain Management as scheduled - is going to have a trial of ROSARIO soon (5) Fibromyalgia: Code(s): M79.7 - Fibromyalgia Plan: Encouraged again on regular exercise and physical activity to help manage her fibromyalgia symptoms better Continue Pregabalin 150 mg TID, Nortriptyline 25 mg QHS and Duloxetine 30 mg QD Was seen at [facility] Rheumatology by Dr. Darnell many years ago and she has not been back in a few years - was referred back, per request, last year but she has not yet been seen nor scheduled for appointment (6) Primary osteoarthritis of both knees: Code(s): M17.0 - Bilateral primary osteoarthritis of knee Plan: Follow up with orthopedics as scheduled Has knee braces that she wears as needed for added stability to her knees and to help reduce her knee pain (7) Vitamin B12 deficiency: Code(s): E53.8 - Deficiency of other specified B group vitamins Plan: Continue Vitamin B12 1000 mcg QD (8) Vitamin D deficiency: Code(s): E55.9 - Vitamin D deficiency, unspecified Plan: Continue Vitamin D2 52910 units once a week (9) Allergic rhinitis: Code(s): J30.9 - Allergic rhinitis, unspecified Qualifiers: Allergic rhinitis trigger: unspecified Allergic rhinitis seasonality: unspecified Qualified Code(s): J30.9 - Allergic rhinitis, unspecified Plan: Continue Loratadine 10 mg QD PRN (10) GERD without esophagitis: Code(s): K21.9 - Gastro-esophageal reflux disease without esophagitis Plan: Dietary restrictions reinforced Continue Pantoprazole 40 mg QD (11) Insomnia: Comment: was on Trazodone 150 mg in the past but has not refilled Rx since 2016 Code(s): G47.00 - Insomnia, unspecified Qualifiers: Insomnia type: unspecified Qualified Code(s): G47.00 - Insomnia, unspecified Plan: Sleep hygiene reinforced Continue Trazodone 100 mg Q HS (12) Anxiety: Code(s): F41.9 - Anxiety disorder, unspecified Plan: Continue Lorazepam 0.5 mg TID PRN (Rx refilled), Hydroxyzine 25 mg TID PRN and Buspirone 10 mg BID Follow up with psychiatry as scheduled (13) Depression: Code(s): F32.9 - Major depressive disorder, single episode, unspecified Qualifiers: Depression Type: unspecified Qualified Code(s): F32.9 - Major depressive disorder, single episode, unspecified Plan: Continue Budeprion SR 100 mg 2 tablets BID Follow up with psychiatry as scheduled (14) Obesity (BMI 30-39.9): Code(s): E66.9 - Obesity, unspecified Plan: Reinforced diet; weight loss and exercise are unrealistic given patient's multiple physical issues and limited activity tolerance Plan Follow up as scheduled next month Medications: Changed From albuterol sulfate 90 mcg/actuation 2 puffs inhalation Q6H PRN 6.7 grams 12RF shortness of breath or wheezing J45.30 - Mild persistent asthma, uncomplicated To albuterol sulfate 90 mcg/actuation 2 puffs inhalation Q6H PRN 6.7 grams 12RF shortness of breath or wheezing J45.30 - Mild persistent asthma, uncomplicated Refilled lorazepam 0.5 mg PO TID PRN 90 tabs 0RF anxiety 30 days F41.9 - Anxiety disorder, unspecified Coding Level of Care Code Est Pt Level 3 (52104) Diagnoses Syncope, unspecified syncope type R55 Syncope type: unspecified Mild persistent asthma without complication J45.30 Asthma severity: mild Asthma persistence: persistent Asthma complication type: uncomplicated Migraine without status migrainosus, not intractable, unspecified migraine type G43.909 Migraine type: unspecified Status migrainosus presence: without status migrainosus Intractability: not intractable Lumbar spondylosis M47.816 Fibromyalgia M79.7 Primary osteoarthritis of both knees M17.0 Vitamin B12 deficiency E53.8 Vitamin D deficiency E55.9 Allergic rhinitis, unspecified seasonality, unspecified trigger J30.9 Allergic rhinitis trigger: unspecified Allergic rhinitis seasonality: unspecified GERD without esophagitis K21.9 Insomnia, unspecified type G47.00 Insomnia type: unspecified Anxiety F41.9 Depression, unspecified depression type F32.9 Depression Type: unspecified Obesity (BMI 30-39.9) E66.9
[2023-04-15 16:50] VITALS: BP 110/82; PULSE 105; O2SAT 98; BMI 35.2
== END 2023-04-15 17:16 | disposition home or self-care (01) ==
PROVIDERS: PCP Internal Medicine; Visit Provider Internal Medicine
DX: R55 Syncope and collapse (principal); J45.30 Mild persistent asthma, uncomplicated; G43.909 Migraine, unspecified, not intractable, without status migrainosus; M47.816 Spondylosis without myelopathy or radiculopathy, lumbar region; M79.7 Fibromyalgia; M17.0 Bilateral primary osteoarthritis of knee; E53.8 Deficiency of other specified B group vitamins; E55.9 Vitamin D deficiency, unspecified; J30.9 Allergic rhinitis, unspecified; K21.9 Gastro-esophageal reflux disease without esophagitis; G47.00 Insomnia, unspecified; F41.9 Anxiety disorder, unspecified
CPT/HCPCS: 99213

== ENCOUNTER 2023-05-06 08:22 | Outpatient (AMB) | payer OTHER, SELFPAY ==
[2023-05-06 08:40] VITALS: BP 118/80; PULSE 70; O2SAT 99; BMI 34.8
--- NOTE | 2023-05-06 08:40 | A.OFFPC_ITS ---
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 Accompanied by: Self / Same As Patient Allergies codeine [Tylenol-Codeine #3] Allergy (Intermediate, Verified 05/06/23 09:15) Rash morphine Allergy (Intermediate, Verified 05/06/23 09:15) rash and itching nalbuphine [From Nubain] Allergy (Intermediate, Verified 05/06/23 09:15) Rash oxycodone [Percocet] Allergy (Intermediate, Verified 05/06/23 09:15) Rash propoxyphene [From Darvocet-N 100] Allergy (Intermediate, Verified 05/06/23 09:15) Rash tramadol [Ultram] Allergy (Intermediate, Verified 05/06/23 09:15) Rash ibuprofen [From Motrin] Allergy (Mild, Verified 05/06/23 09:15) RASH montelukast [Singulair] Allergy (Unknown, Verified 05/06/23 09:15) Unknown Medication List - Last Reconciled 05/06/23 by Henrique Soler MD [ADULT PULL-UPS -- MEDIUM SIZE As directed] albuterol sulfate 2.5 mg (3 mL) continuous nebulization Q6H PRN 30 days albuterol sulfate 90 mcg/actuation 2 puffs inhalation Q6H PRN bupropion HCl 200 mg (2 x 100 mg) PO BID buspirone 10 mg PO BID 30 days cane cane with 4 legs cholecalciferol (vitamin D3) 50 mcg PO DAILY 90 days cyanocobalamin (vitamin B-12) 1,000 mcg PO DAILY 90 days duloxetine 30 mg PO DAILY 30 days ergocalciferol (vitamin D2) (Vitamin D2) 1,250 mcg PO QWEEK hydroxyzine HCl 25 mg PO TID PRN 30 days lidocaine 5% 1 patch topical DAILY loratadine 10 mg PO DAILY PRN 30 days lorazepam 0.5 mg PO TID PRN 30 days meloxicam 15 mg PO DAILY miscellaneous medical supply 1 ea miscellaneous DAILY miscellaneous medical supply 1 ea miscellaneous DAILY miscellaneous medical supply 1 ea miscellaneous DAILY miscellaneous medical supply 1 ea miscellaneous DAILY miscellaneous medical supply 1 ea miscellaneous DAILY miscellaneous medical supply 1 ea miscellaneous DAILY nortriptyline 25 mg PO BID 30 days nystatin 1 appl topical TID 10 days pantoprazole 40 mg PO DAILY pregabalin 150 mg PO TID 30 days [QUAD CANE As directed] [QUAD CANE As directed] [RIGHT KNEE BRACE As directed] [RUBBER TIPS FOR QUAD CANE As directed] Tobacco use date assessed: 05/06/23 Fall risk assessment: 2 + Falls in past year Last assessed Fall Risk: 05/06/23 Dental Screening Dental Screen Date: 05/06/23 Did you have a dental visit in the last 12 months?: Yes Did you have a dental problem in the last 6 months where you did not have access to dental care?: No Was dental information given to patient?: Patient has dentist HPI [facility] 05/05 chest pain, KAIT HPI Details Patient comes in today for her HDF follow up visit She went to the ER at [facility] a few days ago for chest pains, which reportedly started while she was sitting down at home watching television Work ups done in the ER, including cardiac enzymes, chest x-rays and EKG, did not reveal any evidence of acute coronary events and her chest pains at the time were reproducible on exam She was advised that she has some findings of KAIT on her labs but reassured that everything else checked out normal and she was sent home with instructions to follow up with her PCP CARI States that she currently still has some soreness on her anterior chest wall but otherwise feels okay She continues to complain of diffuse chronic pain and low back pain Denies any headaches or dizziness Denies any increased SOB No nausea/vomiting, no abdominal pain No change in bowel habits noted Needs a couple of medical supplies Rx refilled - adult pull ups and right wrist brace PFSH Medical History Pure hypercholesterolemia Allergic rhinitis Insomnia Multiple joint pain GERD without esophagitis Vitamin D deficiency Lumbar spondylosis Obesity (BMI 30-39.9) Migraine Primary osteoarthritis of both knees Urinary incontinence Rotator cuff tear, left Depression Asthma Fibromyalgia Non-toxic multinodular goiter Anxiety Surgical History Status post rotator cuff surgery S/P rotator cuff repair Status post right rotator cuff repair (~07/26/18) History of hysterectomy History of cholecystectomy History of laminectomy (~2009) Family History Father Diabetes Mother Medical history unknown Social History Household Members: None Housing: Apartment Do you presently have visiting nurse or other home services: No Alcohol intake: former Patient Tobacco Use Status: Never used Tobacco e-Cigarette/Vaping Use: Never Used Second Hand Smoke Exposure: No service: No Current occupational status: disabled Cognitive needs: Yes (cane) Hearing needs: No Vision needs: Yes Questionnaire PHQ-9 Over the last 2 weeks, how often have you been bothered by any of the following problems? 1. Little interest or pleasure in doing things: not at all 2. Feeling down, depressed, or hopeless: not at all 3. Trouble falling or staying asleep, or sleeping too much: not at all 4. Feeling tired or having little energy: not at all 5. Poor appetite or overeating: not at all 6. Feeling bad about yourself - or that you are a failure or have let yourself or your family down: not at all 7. Trouble concentrating on things, such as reading the newspaper or watching television: not at all 8. Moving or speaking so slowly that other people could have noticed. Or the opposite - being so fidgety or restless that you have been moving around a lot more than usual: not at all 9. Thoughts that you would be better off or of hurting yourself in some way: not at all Total score: 0 Depression Screening Interpretation: Negative Depression Screening Done: Yes 73240 - PHQ-9 Billing: Yes Source: Developed by Drs. Lang Pacheco, Kelsey Lund, Filemon Grewal and colleagues, with an educational juvenal from [employer]. Thrive Questionnaire Date Thrive assessed: 05/06/23 I am a: Patient What is your living situation today?: I have a steady place to live Within the past 12 months, did the food you bought not last and you didn't have the money to get more?: Never true Within the past 12 months, did you worry whether your food would run out before you got money to buy more?: Never true Do you have trouble paying for medicines?: No Do you have trouble getting transportation to medical appointments?: No Do you have trouble paying your heating and electricity bill?: No Do you have trouble taking care of your child, family member or friend?: No Do you have trouble with day-to-day activities such as bathing, preparing meals, shopping, managing finances, etc.?: No Are you currently unemployed and looking for a job?: No Are you interested in more education?: No Please select the resources that you would like help with: None Currently or been in a relationship where the following occur: no concerns reported AUDIT C Alcohol Use Questionnaire (AUDIT-C) 1. How often do you have a drink containing alcohol?: Never 3. How often do you have six or more drinks on one occasion?: Never Total Score: 0 Score Reviewed/Action Taken: Yes FLACO-7 AMB Questionnaire FLACO-7 Date FLACO - 7 assessed: 05/06/23 Feeling nervous, anxious, or on edge: 0 = Not at all Worrying too much about different things: 0 = Not at all Trouble relaxin = Not at all Being so restless that it is hard to sit still: 0 = Not at all Becoming easily annoyed or irritable: 0 = Not at all Feeling afraid as if something awful might happen: 0 = Not at all Source: Developed by Drs. Lang Pacheco, Kelsey Lund, Filemon Grewal and colleagues, with an educational juvenal from [employer]. Review of Systems Const Denies chills, Reports fatigue, Denies fever(s) and Denies headache(s) ENT Denies dysphagia, Denies dizziness, Denies otalgia, Denies headache(s), Reports neck pain, Denies odynophagia and Denies sore throat Card Denies rapid heart rate, Denies irregular heart rhythm, Denies palpitations and Denies dyspnea Resp Denies chest congestion, Denies cough, Denies dyspnea and Denies wheezing GI Denies abdominal pain, Denies bloating, Denies constipation, Denies dysphagia, Denies heartburn, Denies diarrhea, Denies nausea, Denies odynophagia and Denies vomiting Denies hematuria, Denies urinary frequency, Denies dysuria, Denies urinary incontinence and Denies urinary urgency Musc Reports back pain (over the lumbar spine - increasing ), Reports arthralgias (left shoulder - S/P surgery in 03/2021), Reports neck pain and Reports stiffness (left shoulder) Skin/Breast Denies rash Neuro Denies dizziness, Denies headache(s) and Denies paresthesias Psych Denies anxiety and Denies depression Endo Reports fatigue and Denies palpitations Corona/Lymph Denies easy bruising Aller/Immun Denies wheezing Physical exam (Primary Care) Vital Signs: Last Vital Signs Pulse 70 05/06/23 08:40 BP 118/80 05/06/23 08:40 Pulse Ox 99 05/06/23 08:40 Oxygen Delivery Method Room Air 05/06/23 08:40 BMI result Body Mass Index 34.8 Tobacco/Smoking Status: Tobacco use Status Tobacco use date assessed 05/06/23 05/06/23 08:48 Patient Tobacco Use Status Never used Tobacco 05/06/23 08:48 Tobacco use type 04/08/23 13:12 e-Cigarette/Vaping Use Never Used 05/06/23 08:48 PHQ-9: PHQ-9 Score PHQ-9: Total score 0 05/06/23 08:48 Depression Screening Interpretation: Negative Thrive Assessment: Date of Thrive Assessment Date Thrive assessed 05/06/23 05/06/23 08:48 Currently or been in a relationship where the following occur: no concerns reported Const General: no acute distress and alert HENMT Ears: TM's normal bilaterally and EAC's normal Throat: Yes posterior oropharynx normal and Yes tonsils normal (no TP con gestion) Neck Neck: Yes no lymphadenopathy and Yes supple Thyroid: Thyroid normal Chest Chest palpation & inspection: localized rib tenderness with anteroposterior compression (over the left upper chest wall at the mid-clavicular line) left mid-clavicular line involving the 2nd rib and involving the 3rd rib Resp Auscultation: clear to auscultation bilaterally, no rales and no wheezes Cardio Rate: regular rate Rhythm: regular rhythm Heart sounds: no murmurs GI Palpation (GI): Soft to palpation and nontender Auscultation: normal bowel sounds General: Yes no CVA tenderness Back/Spine/Pelvis Back: no CVA tenderness Cervical Spine: cervical muscular tenderness and Cervical spine tenderness Thoracic/Lumbar Spine: paraspinal muscle tenderness bilaterally in the upper thoracic, in the mid lumbar and in the lower lumbar and lumbar spinal tenderness Skin Rashes: no rashes Extrem General: Yes no clubbing, cyanosis or edema Left upper extremity: shoulder/upper arm Details: tenderness Location: of the A- C joint and normal ROM; no swelling Assessment and Plan Assessment & Plan (1) Left-sided chest wall pain: Code(s): R07.89 - Other chest pain Plan: Most likely due to costochondritis - states that her chest pains have been gradually subsiding lately Cardiac work ups done in the ER at [facility] a few days ago came back negative Have instructed patient to apply some warm compress to her left upper chest wall PRN for symptomatic relief (2) KAIT (acute kidney injury): Code(s): N17.9 - Acute kidney failure, unspecified Plan: Patient reportedly had some findings suggestive of KAIT on her labs done at the ER a few days ago Reinforced increased oral fluids Will have her recheck her labs next month for follow up (3) Pure hypercholesterolemia: Code(s): E78.00 - Pure hypercholesterolemia, unspecified Plan: Reinforced low cholesterol diet Will recheck her labs and fasting lipids next month for follow up (4) Asthma: Code(s): J45.909 - Unspecified asthma, uncomplicated Qualifiers: Asthma severity: mild Asthma persistence: persistent Asthma complication type: uncomplicated Qualified Code(s): J45.30 - Mild persistent asthma, uncomplicated Plan: Stable Continue Flovent HFA 110 mcg 1 inhalation BID and Albuterol HFA 2 puffs 4 times a day as needed; also uses Albuterol nebulization as needed (5) Migraine: Code(s): G43.909 - Migraine, unspecified, not intractable, without status migrainosus Qualifiers: Migraine type: unspecified Status migrainosus presence: without status migrainosus Intractability: not intractable Qualified Code(s): G43.909 - Migraine, unspecified, not intractable, without status migrainosus Plan: Stable on prophylactic Tx Continue Topiramate 25 mg BID and Nortriptyline 25 mg Q HS Reinforced avoidance of migraine triggers (6) Lumbar spondylosis: Code(s): M47.816 - Spondylosis without myelopathy or radiculopathy, lumbar region Plan: Reinforced activity and weight-lifting restrictions Continue Methocarbamol 750 mg TID PRN and Duloxetine 30 mg QD MRI of the lumbar spine last done in 05/2021 revealed s/p instrumented fusion at the L2-L3 level with laminectomy changes, with no significant canal or foraminal compromise, stable in appearance. Stable discogenic degenerative changes at multiple levels, with stable multilevel bilateral facet arthropathy. Multilevel disc bulging and foraminal disc protrusions are again noted, similar to the previous exam with no significant central spinal canal stenosis. No significant neural foraminal stenosis. No abnormal enhancement within the limitations of the study. Repeat lumbar spine x-rays done at [facility] last year showed stable post-op changes with no acute findings Follow up with Pain Management as scheduled - is going to have a trial of ROSARIO soon (7) Fibromyalgia: Code(s): M79.7 - Fibromyalgia Plan: Encouraged again on regular exercise and physical activity to help manage her fibromyalgia symptoms better Continue Pregabalin 150 mg TID, Nortriptyline 25 mg QHS and Duloxetine 30 mg QD Was seen at [facility] by Dr. Darnell many years ago and she has not been back in a few years - was referred back, per request, last year but she has not yet been seen nor scheduled for appointment (8) Rotator cuff tear arthropathy of left shoulder: Comment: S/P left rotator cuff surgery in September [address] Velázquez Code(s): M75.102 - Unspecified rotator cuff tear or rupture of left shoulder, not specified as traumatic; M12.812 - Other specific arthropathies, not elsewhere classified, left shoulder Plan: Was seen previously by orthopedics and was recommended to continue gentle physical therapy of her left shoulder but patient states that this did not really help much Follow up with orthopedics as scheduled (9) Primary osteoarthritis of both knees: Code(s): M17.0 - Bilateral primary osteoarthritis of knee Plan: Follow up with orthopedics as scheduled Has knee braces that she wears as needed for added stability to her knees and to help reduce her knee pain (10) Vitamin B12 deficiency: Code(s): E53.8 - Deficiency of other specified B group vitamins Plan: Continue Vitamin B12 1000 mcg QD (11) Allergic rhinitis: Code(s): J30.9 - Allergic rhinitis, unspecified Qualifiers: Allergic rhinitis trigger: unspecified Allergic rhinitis seasonality: unspecified Qualified Code(s): J30.9 - Allergic rhinitis, unspecified Plan: Continue Loratadine 10 mg QD PRN (12) GERD without esophagitis: Code(s): K21.9 - Gastro-esophageal reflux disease without esophagitis Plan: Dietary restrictions reinforced Continue Pantoprazole 40 mg QD (13) Vitamin D deficiency: Code(s): E55.9 - Vitamin D deficiency, unspecified Plan: Continue Vitamin D2 15230 units once a week (14) Insomnia: Comment: was on Trazodone 150 mg in the past but has not refilled Rx since 2016 Code(s): G47.00 - Insomnia, unspecified Qualifiers: Insomnia type: unspecified Qualified Code(s): G47.00 - Insomnia, unspecified Plan: Sleep hygiene reinforced Continue Trazodone 100 mg Q HS (15) Anxiety: Code(s): F41.9 - Anxiety disorder, unspecified Plan: Continue Lorazepam 0.5 mg TID PRN (Rx refilled), Hydroxyzine 25 mg TID PRN and Buspirone 10 mg BID Follow up with psychiatry as scheduled (16) Depression: Code(s): F32.9 - Major depressive disorder, single episode, unspecified Qualifiers: Depression Type: unspecified Qualified Code(s): F32.9 - Major depressive disorder, single episode, unspecified Plan: Continue Budeprion SR 100 mg 2 tablets BID Follow up with psychiatry as scheduled (17) Obesity (BMI 30-39.9): Code(s): E66.9 - Obesity, unspecified Plan: Reinforced diet; weight loss and exercise are unrealistic given patient's multiple physical issues and limited activity tolerance Plan Follow up as scheduled next month She is reminded to get her follow up labs done (updated) a week before her appointment date Medications: New [WRIST BRACE (right wrist) - MEDIUM] As directed 1 ea 0RF S63.501A - Unspecified sprain of right wrist, initial encounter Refilled [ADULT PULL-UPS -- MEDIUM SIZE] As directed 100 ea 12RF R32 - Unspecified urinary incontinence Coding Level of Care Code Est Pt Level 3 (94434) Diagnoses Left-sided chest wall pain R07.89 KAIT (acute kidney injury) N17.9 Pure hypercholesterolemia E78.00 Mild persistent asthma without complication J45.30 Asthma severity: mild Asthma persistence: persistent Asthma complication type: uncomplicated Migraine without status migrainosus, not intractable, unspecified migraine type G43.909 Migraine type: unspecified Status migrainosus presence: without status migrainosus Intractability: not intractable Lumbar spondylosis M47.816 Fibromyalgia M79.7 Rotator cuff tear arthropathy of left shoulder M75.102; M12.812 Primary osteoarthritis of both knees M17.0 Vitamin B12 deficiency E53.8 Allergic rhinitis, unspecified seasonality, unspecified trigger J30.9 Allergic rhinitis trigger: unspecified Allergic rhinitis seasonality: unspecified GERD without esophagitis K21.9 Vitamin D deficiency E55.9 Insomnia, unspecified type G47.00 Insomnia type: unspecified Anxiety F41.9 Depression, unspecified depression type F32.9 Depression Type: unspecified Obesity (BMI 30-39.9) E66.9
== END 2023-05-06 11:27 | disposition home or self-care (01) ==
PROVIDERS: PCP Internal Medicine; Visit Provider Internal Medicine
DX: R07.89 Other chest pain (principal); N17.9 Acute kidney failure, unspecified; E78.00 Pure hypercholesterolemia, unspecified; J45.30 Mild persistent asthma, uncomplicated; G43.909 Migraine, unspecified, not intractable, without status migrainosus; M47.816 Spondylosis without myelopathy or radiculopathy, lumbar region; M79.7 Fibromyalgia; M75.102 Unspecified rotator cuff tear or rupture of left shoulder, not specified as traumatic; M12.812 Other specific arthropathies, not elsewhere classified, left shoulder; M17.0 Bilateral primary osteoarthritis of knee; E53.8 Deficiency of other specified B group vitamins; J30.9 Allergic rhinitis, unspecified
CPT/HCPCS: 99213

== ENCOUNTER 2023-05-21 12:17 | Outpatient (AMB) | payer OTHER, SELFPAY ==
--- NOTE | 2023-05-21 12:23 | AM.OFFWIN_ITS ---
Intake Vital Signs 05/21/23 12:26 Height 5 ft 6 in Weight 220 lb BMI 35.5 BP 110/80 Blood Pressure Location Rt brachial Position Sitting Pulse 70 Pulse Source Pulse Oximeter Temp 97.8 F Temp Source Temporal Artery Scan Pulse Oximetry (%) 99 Intake Visit Reasons: EP, bump on right middle finger Intake Note: pt is here for c/o bump on right middle finger Patient Tobacco Use Status: Never used Tobacco Allergies codeine [Tylenol-Codeine #3] Allergy (Intermediate, Verified 05/21/23 12:39) Rash morphine Allergy (Intermediate, Verified 05/21/23 12:39) rash and itching nalbuphine [From Nubain] Allergy (Intermediate, Verified 05/21/23 12:39) Rash oxycodone [Percocet] Allergy (Intermediate, Verified 05/21/23 12:39) Rash propoxyphene [From Darvocet-N 100] Allergy (Intermediate, Verified 05/21/23 12:39) Rash tramadol [Ultram] Allergy (Intermediate, Verified 05/21/23 12:39) Rash ibuprofen [From Motrin] Allergy (Mild, Verified 05/21/23 12:39) RASH montelukast [Singulair] Allergy (Unknown, Verified 05/21/23 12:39) Unknown Medication List - Last Reconciled 05/21/23 by Colin Khan MD [ADULT PULL-UPS -- MEDIUM SIZE As directed] albuterol sulfate 2.5 mg (3 mL) continuous nebulization Q6H PRN 30 days albuterol sulfate 90 mcg/actuation 2 puffs inhalation Q6H PRN bupropion HCl 200 mg (2 x 100 mg) PO BID buspirone 10 mg PO BID 30 days cholecalciferol (vitamin D3) 50 mcg PO DAILY 90 days cyanocobalamin (vitamin B-12) 1,000 mcg PO DAILY 90 days duloxetine 30 mg PO DAILY 30 days ergocalciferol (vitamin D2) (Vitamin D2) 1,250 mcg PO QWEEK hydroxyzine HCl 25 mg PO TID PRN 30 days [INCONTINENCE PADS Use as directed] lidocaine 5% 1 patch topical DAILY loratadine 10 mg PO DAILY PRN 30 days lorazepam 0.5 mg PO TID PRN 30 days meloxicam 15 mg PO DAILY miscellaneous medical supply 1 ea miscellaneous DAILY miscellaneous medical supply 1 ea miscellaneous DAILY miscellaneous medical supply 1 ea miscellaneous DAILY miscellaneous medical supply 1 ea miscellaneous DAILY miscellaneous medical supply 1 ea miscellaneous DAILY nortriptyline 25 mg PO BID 30 days nystatin 1 appl topical TID 10 days pantoprazole 40 mg PO DAILY pregabalin 150 mg PO TID 30 days [QUAD CANE As directed] [QUAD CANE As directed] [RIGHT KNEE BRACE As directed] [RIGHT THUMB SPLINT As directed] [RUBBER TIPS FOR QUAD CANE As directed] [WRIST BRACE (right wrist) - MEDIUM As directed] Do you need a note to return to daycare/school/sports/work: Yes HPI EP, bump on right middle finger HPI Details 67-year-old female presents to the office for a sick visit, patient is reporting a swelling on the right hand 4th digit. She noticed the swelling 3 days ago. It is painful and tender to touch. No discharge from the swelling. [facility] Medical History (Updated 05/21/23 @ 12:53 by Colin Khan MD) Folliculitis Pure hypercholesterolemia Allergic rhinitis Insomnia Multiple joint pain GERD without esophagitis Vitamin D deficiency Lumbar spondylosis Obesity (BMI 30-39.9) Migraine Primary osteoarthritis of both knees Urinary incontinence Rotator cuff tear, left Depression Asthma Fibromyalgia Non-toxic multinodular goiter Anxiety Surgical History Status post rotator cuff surgery S/P rotator cuff repair Status post right rotator cuff repair (~07/26/18) History of hysterectomy History of cholecystectomy History of laminectomy (~2009) Family History Father Diabetes Mother Medical history unknown Social History Household Members: None Housing: Apartment Do you presently have visiting nurse or other home services: No Alcohol intake: former Patient Tobacco Use Status: Never used Tobacco e-Cigarette/Vaping Use: Never Used Second Hand Smoke Exposure: No service: No Current occupational status: disabled Cognitive needs: Yes (cane) Hearing needs: No Vision needs: Yes Physical Exam Vital Signs: Last Vital Signs Temp 97.8 F 05/21/23 12:26 Pulse 70 05/21/23 12:26 BP 110/80 05/21/23 12:26 Pulse Ox 99 05/21/23 12:26 BMI result Body Mass Index 35.5 Extrem Other: Right hand: 4th digit: tender swelling on the dorsum of the finger. Assessment & Plan Assessment & Plan (1) Folliculitis: Code(s): L73.9 - Follicular disorder, unspecified Plan: Cephalexin twice a day for seven days, Warm Compress. If sx not better, to follow up here. Coding Level of Care Code Est Pt Level 3 (73197) Diagnoses Folliculitis L73.9
[2023-05-21 12:26] VITALS: BP 110/80; PULSE 70; TEMP 36.6; O2SAT 99; BMI 35.5
== END 2023-05-21 13:14 | disposition home or self-care (01) ==
PROVIDERS: PCP Internal Medicine; Visit Provider Internal Medicine
DX: L73.9 Follicular disorder, unspecified (principal)
CPT/HCPCS: 99213

== ENCOUNTER 2023-05-27 08:20 | Outpatient (REF) | payer OTHER, SELFPAY ==
[2023-05-27 08:50] LABS: MANUAL DIFF FLAG NO
[2023-05-27 08:53] LABS: Basophils Percent Auto 0.7 % (0-2); Eosinophils Absolute Auto 0.2 X10*3/uL (0.0-0.4); Eosinophils Percent Auto 3.9 % (0-4); Hematocrit 42.6 % (37.0-47.0); Hemoglobin 13.8 g/dl (12.0-16.0); Imm Gran Abs Auto 0.01 X10*3/uL (0.00-0.03); Imm Gran Pct Auto 0.2 % (0.0-0.4); Lymphocytes Absolute Auto 1.8 X10*3/uL (1.2-4.9); Lymphocytes Percent Auto 33.9 % (20-40); Mean Corpuscular HGB Conc 32.4 g/dl (31.0-35.0); Mean Corpuscular Hemoglobin 28.5 pg (27.0-33.0); Mean Corpuscular Volume 87.8 fL (80.0-98.0); Mean Platelet Volume 10.9 fL (9.4-12.3); Monocytes Absolute Auto 0.5 X10*3/uL (0.1-1.2); Monocytes Percent Auto 9.9 % (2-11); Neutrophils Absolute Auto 2.8 x10*3/uL (2.0-8.3); Neutrophils Percent Auto 51.4 % (45-73); Platelet Count 244 X10*3/uL (160-400); Red Blood Count 4.85 X10*6/uL (4.20-5.50); Red Cell Distribution Width 14.5 % (11.0-16.0); White Blood Count 5.4 X10*3/uL (4.8-10.8)
[2023-05-27 09:19] LABS: Alanine Aminotransferase 18 U/L (0-31); Albumin Level 3.8 g/dL (3.5-5.0); Alkaline Phosphatase 94 U/L (39-117); Anion Gap 9 (12-20); Aspartate Amino Transferase 18 U/L (5-31); Bilirubin Total 0.4 mg/dL (0.0-1.0); Blood Urea Nitrogen 17 mg/dL (9-16); Carbon Dioxide 30 mmol/L (22-29); Chloride 105 mmol/L (96-108); Cholesterol 201 mg/dL (<200); Estimated Glomerular Filt Rate > 60; Glucose Fasting 130 mg/dL (60-99); HDL Cholesterol 74 mg/dL (>40); LDL Cholesterol Calculated 115 mg/dL (<100); Potassium 4.5 mmol/L (3.3-5.1); Sodium 139 mmol/L (135-145); Total Protein 7.5 g/dL (6.5-8.0); Triglycerides 64 mg/dL (<150)
[2023-05-27 09:35] LABS: TSH reflex Free T4 3.23 uIU/mL (0.32-4.0); Vitamin D 25-OH Total 28.9 ng/mL (>30)
[2023-05-27 09:44] LABS: Folate 7.7 ng/mL (> or = 4.0); Vitamin B12 1511 pg/mL (200-900)
[2023-05-27 11:06] LABS: Appearance Urine Clear; Color Urine Yellow; Glucose Urine UA Negative (Negative); Leukocyte Esterase Urine Trace (Negative); Nitrite Urine Negative (Negative); Specific Gravity - Urine 1.025 (1.005-1.025); UMIC TRIGGER UACC YES; Urine Blood Negative (Negative); Urine Ketones Negative (Negative); Urine Protein Trace mg/dL (Neg-Trace)
[2023-05-27 11:10] LABS: Bacteria Urine 1+ (None Seen); Hyaline Casts Urine 0-2 /LPF (0-2); WBC Urine 0-5 /HPF (0-5)
== END 2023-05-27 08:21 | disposition home or self-care (01) ==
LOC: HO.LAB 08:20
PROVIDERS: PCP Internal Medicine; Visit Provider Internal Medicine
DX: Z00.00 Encounter for general adult medical examination without abnormal findings (principal); E53.8 Deficiency of other specified B group vitamins; I10 Essential (primary) hypertension; E55.9 Vitamin D deficiency, unspecified; E78.00 Pure hypercholesterolemia, unspecified
CPT/HCPCS: 36415; 80053; 80061; 81001; 81003; 82306; 82607; 82746; 84443; 85025

== ENCOUNTER 2023-08-19 13:35 | Outpatient (AMB) | payer OTHER, SELFPAY ==
[2023-08-19 14:12] VITALS: BP 108/82; PULSE 96; O2SAT 97; BMI 33.4
--- NOTE | 2023-08-19 14:12 | A.OFFPC_ITS ---
Vital Signs 08/19/23 14:12 Height 5 ft 6 in Weight 207 lb 2 oz BMI 33.4 BP 108/82 Blood Pressure Location Lt brachial Position Sitting Pulse 96 Pulse Source Pulse Oximeter Pulse Oximetry (%) 97 Oxygen Delivery Method Room Air Intake Visit Reasons: f/u n/v, weight loss Coat Operator Required: No Accompanied by: Self / Same As Patient Allergies codeine [Tylenol-Codeine #3] Allergy (Intermediate, Verified 08/19/23 15:05) Rash morphine Allergy (Intermediate, Verified 08/19/23 15:05) rash and itching nalbuphine [From Nubain] Allergy (Intermediate, Verified 08/19/23 15:05) Rash oxycodone [Percocet] Allergy (Intermediate, Verified 08/19/23 15:05) Rash propoxyphene [From Darvocet-N 100] Allergy (Intermediate, Verified 08/19/23 15:05) Rash tramadol [Ultram] Allergy (Intermediate, Verified 08/19/23 15:05) Rash ibuprofen [From Motrin] Allergy (Mild, Verified 08/19/23 15:05) RASH montelukast [Singulair] Allergy (Unknown, Verified 08/19/23 15:05) Unknown Medication List - Last Reconciled 08/19/23 by Henrique Soler MD [ADULT PULL-UPS -- MEDIUM SIZE As directed] albuterol sulfate 2.5 mg (3 mL) continuous nebulization Q6H PRN 30 days albuterol sulfate 90 mcg/actuation 2 puffs inhalation Q6H PRN [BED PADS As directed] bupropion HCl 200 mg (2 x 100 mg) PO BID buspirone 10 mg PO BID 30 days cholecalciferol (vitamin D3) 50 mcg PO DAILY 90 days cyanocobalamin (vitamin B-12) 1,000 mcg PO DAILY 90 days divalproex 500 mg PO BID duloxetine 30 mg PO DAILY 30 days ergocalciferol (vitamin D2) (Vitamin D2) 1,250 mcg PO QWEEK hydroxyzine HCl 25 mg PO TID PRN 30 days [INCONTINENCE PADS Use as directed] [LEFT KNEE BRACE As directed] lidocaine 5% 1 patch topical DAILY loratadine 10 mg PO DAILY PRN 30 days lorazepam 0.5 mg PO TID PRN 30 days meloxicam 15 mg PO DAILY methocarbamol 750 mg PO TID miscellaneous medical supply 1 ea miscellaneous DAILY miscellaneous medical supply 1 ea miscellaneous DAILY miscellaneous medical supply 1 ea miscellaneous DAILY miscellaneous medical supply 1 ea miscellaneous DAILY miscellaneous medical supply 1 ea miscellaneous DAILY nortriptyline 25 mg PO BID 30 days nystatin 1 appl topical TID 10 days pantoprazole 40 mg PO DAILY pregabalin 150 mg PO TID 30 days [QUAD CANE As directed] [QUAD CANE (lightweight) As directed] [RIGHT KNEE BRACE As directed] [RIGHT THUMB SPLINT As directed] [RUBBER TIPS FOR QUAD CANE As directed] [WRIST BRACE (right wrist) - MEDIUM As directed] Tobacco use date assessed: 08/19/23 Fall risk assessment: 1 Fall in past year Last assessed Fall Risk: 08/19/23 Dental Screening Dental Screen Date: 08/19/23 Did you have a dental visit in the last 12 months?: Yes Did you have a dental problem in the last 6 months where you did not have access to dental care?: No Was dental information given to patient?: Patient has dentist HPI f/u n/v, weight loss HPI Details Patient comes in today for her follow up visit She went to the ER at [facility] last week for increasing pain over her left lower back that radiates into her left leg and increased neck pain She denies any recent injury or trauma and states that her left lower back pain started acting up all of a sudden; patient denies any recent injury or trauma Patient states that she was just briefly examined in the ER, was given a dose of Methocarbamol 750 mg and sent back home with instructions to follow-up with her PCP States that the ER doctor did not even do any labs or get some x-rays to check her out further and she is wondering if any of these need to be done at this time States that she is still experiencing increased pain over her left lower back that often radiates down the back of her left leg Is also experiencing diffuse pain all over, which she states has been going on for a while now and that none of her current medications are helping much She denies any headaches or dizziness Denies any chest pains, no shortness of breath No nausea/ vomiting, no abdominal pain No change in bowel habits noted [facility] Medical History Folliculitis Pure hypercholesterolemia Allergic rhinitis Insomnia Multiple joint pain GERD without esophagitis Vitamin D deficiency Lumbar spondylosis Obesity (BMI 30-39.9) Migraine Primary osteoarthritis of both knees Urinary incontinence Rotator cuff tear, left Depression Asthma Fibromyalgia Non-toxic multinodular goiter Anxiety Surgical History Status post rotator cuff surgery S/P rotator cuff repair Status post right rotator cuff repair (~07/26/18) History of hysterectomy History of cholecystectomy History of laminectomy (~2009) Family History Father Diabetes Mother Medical history unknown Social History Household Members: None Housing: Apartment Do you presently have visiting nurse or other home services: No Alcohol intake: former Patient Tobacco Use Status: Never used Tobacco e-Cigarette/Vaping Use: Never Used Second Hand Smoke Exposure: No service: No Current occupational status: disabled Cognitive needs: Yes (cane) Hearing needs: No Vision needs: Yes Questionnaire PHQ-9 Over the last 2 weeks, how often have you been bothered by any of the following problems? 1. Little interest or pleasure in doing things: not at all 2. Feeling down, depressed, or hopeless: not at all 3. Trouble falling or staying asleep, or sleeping too much: not at all 4. Feeling tired or having little energy: not at all 5. Poor appetite or overeating: not at all 6. Feeling bad about yourself - or that you are a failure or have let yourself or your family down: not at all 7. Trouble concentrating on things, such as reading the newspaper or watching television: not at all 8. Moving or speaking so slowly that other people could have noticed. Or the opposite - being so fidgety or restless that you have been moving around a lot more than usual: not at all 9. Thoughts that you would be better off or of hurting yourself in some way: not at all Total score: 0 Depression Screening Interpretation: Negative Depression Screening Done: Yes 10440 - PHQ-9 Billing: Yes Source: Developed by Drs. Lang Pacheco, Filemon Quinn and colleagues, with an educational juvenal from [employer]. Thrive Questionnaire Date Thrive assessed: 08/19/23 I am a: Patient What is your living situation today?: I have a steady place to live Within the past 12 months, did the food you bought not last and you didn't have the money to get more?: Never true Within the past 12 months, did you worry whether your food would run out before you got money to buy more?: Never true Do you have trouble paying for medicines?: No Do you have trouble getting transportation to medical appointments?: No Do you have trouble paying your heating and electricity bill?: No Do you have trouble taking care of your child, family member or friend?: No Do you have trouble with day-to-day activities such as bathing, preparing meals, shopping, managing finances, etc.?: No Are you currently unemployed and looking for a job?: No Are you interested in more education?: No Please select the resources that you would like help with: None Currently or been in a relationship where the following occur: no concerns reported THRIVE Score: 0 AUDIT C Alcohol Use Questionnaire (AUDIT-C) 1. How often do you have a drink containing alcohol?: Never 3. How often do you have six or more drinks on one occasion?: Never Total Score: 0 Score Reviewed/Action Taken: Yes FLACO-7 AMB Questionnaire FLACO-7 Date FLACO - 7 assessed: 08/19/23 Feeling nervous, anxious, or on edge: 0 = Not at all Not being able to stop or control worryin = Not at all Worrying too much about different things: 0 = Not at all Trouble relaxin = Not at all Being so restless that it is hard to sit still: 0 = Not at all Becoming easily annoyed or irritable: 0 = Not at all Feeling afraid as if something awful might happen: 0 = Not at all Total FLACO-7 score (0-4 normal; 5-9 mild; 10-14 moderate; 15-21 severe): 0 Source: Developed by Drs. Lang Pacheco, Filemon Quinn and colleagues, with an educational juvenal from [employer]. Review of Systems Const Reports body aches (diffuse), Denies chills, Reports fatigue, Denies fever(s) and Denies headache(s) ENT Denies dysphagia, Denies dizziness, Denies otalgia, Denies headache(s), Reports neck pain (increasing lately), Denies odynophagia and Denies sore throat Card Denies rapid heart rate, Denies irregular heart rhythm, Denies palpitations and Denies dyspnea Resp Denies chest congestion, Denies cough, Denies dyspnea and Denies wheezing GI Denies abdominal pain, Denies bloating, Denies constipation, Denies dysphagia, Denies heartburn, Denies diarrhea, Denies nausea, Denies odynophagia and Denies vomiting Denies hematuria, Denies urinary frequency, Denies dysuria, Denies urinary incontinence and Denies urinary urgency Musc Details: increasing pain over left lower back that often radiates down the back of her left lower extremity Reports back pain (over the lower back (chronic) but has increasing pain on left side lately), Reports arthralgias (left shoulder - S/P surgery in 03/2021), Reports neck pain (increasing lately) and Reports stiffness (left shoulder) Skin/Breast Denies rash Neuro Denies dizziness, Denies headache(s) and Denies paresthesias Psych Denies anxiety and Denies depression Endo Reports fatigue and Denies palpitations Corona/Lymph Denies easy bruising Aller/Immun Denies wheezing Physical exam (Primary Care) Vital Signs: Last Vital Signs Pulse 96 08/19/23 14:12 BP 108/82 08/19/23 14:12 Pulse Ox 97 08/19/23 14:12 Oxygen Delivery Method Room Air 08/19/23 14:12 BMI result Body Mass Index 33.4 Tobacco/Smoking Status: Tobacco use Status Tobacco use date assessed 08/19/23 08/19/23 14:16 Patient Tobacco Use Status Never used Tobacco 08/19/23 14:16 Tobacco use type 04/08/23 13:12 e-Cigarette/Vaping Use Never Used 08/19/23 14:16 PHQ-9: PHQ-9 Score PHQ-9: Total score 0 08/19/23 15:07 Depression Screening Interpretation: Negative Thrive Assessment: Date of Thrive Assessment Date Thrive assessed 08/19/23 08/19/23 14:16 Currently or been in a relationship where the following occur: no concerns reported Const General: no acute distress and alert HENMT Ears: TM's normal bilaterally and EAC's normal Throat: Yes posterior oropharynx normal and Yes tonsils normal (no TP congestion) Neck Neck: Yes no lymphadenopathy and Yes supple Thyroid: Thyroid normal Resp Auscultation: clear to auscultation bilaterally, no rales and no wheezes Cardio Rate: regular rate Rhythm: regular rhythm Heart sounds: no murmurs GI Palpation (GI): Soft to palpation and nontender Auscultation: normal bowel sounds General: Yes no CVA tenderness Back/Spine/Pelvis Back: no CVA tenderness Cervical Spine: cervical muscular tenderness and Cervical spine tenderness Thoracic/Lumbar Spine: paraspinal muscle tenderness bilaterally in the upper thoracic, in the mid lumbar and in the lower lumbar and on the left greater than right and lumbar spinal tenderness Skin Rashes: no rashes Extrem General: Yes no clubbing, cyanosis or edema Left upper extremity: shoulder/upper arm Details: tenderness Location: of the A- C joint and normal ROM; no swelling Results Reviewed Results Reviewed: Laboratory Tests 01/08/23 01/08/23 01/08/23 19:19 22:06 22:06 WBC Hgb Hct Plt Count Sodium Potassium Creatinine Estimated GFR Random Glucose Fasting Glucose Calcium AST 21 ALT 19 Triglycerides Cholesterol LDL Cholesterol, Calc HDL Cholesterol Vitamin B12 25-OH Vitamin D Total TSH Ur Specific [place] >= 1.030 H Urine Protein Negative Urine Glucose (UA) Negative Urine Blood Trace H Urine Nitrite Ur Leukocyte Esterase 01/14/23 01/14/23 05/27/23 22:50 22:50 08:45 WBC 7.0 Hgb 13.3 Hct 41.3 Plt Count 174 D Sodium 138 Potassium 4.1 Creatinine 0.78 Estimated GFR > 60 Random Glucose 143 H Fasting Glucose Calcium AST ALT Triglycerides Cholesterol LDL Cholesterol, Calc HDL Cholesterol Vitamin B12 25-OH Vitamin D Total TSH Ur Specific [place] Urine Protein Urine Glucose (UA) Negative Urine Blood Negative Urine Nitrite Negative Ur Leukocyte Esterase Trace H 05/27/23 05/27/23 05/27/23 08:45 08:47 08:47 WBC 5.4 Hgb 13.8 Hct 42.6 Plt Count 244 Sodium 139 Potassium 4.5 Creatinine 0.75 Estimated GFR > 60 Random Glucose Fasting Glucose 130 H Calcium 9.0 AST 18 ALT 18 Triglycerides 64 Cholesterol 201 H LDL Cholesterol, Calc 115 H HDL Cholesterol 74 Vitamin B12 1511 H 25-OH Vitamin D Total 28.9 L TSH 3.23 Ur Specific [place] 1.025 Urine Protein Trace Urine Glucose (UA) Urine Blood Urine Nitrite Ur Leukocyte Esterase Assessment and Plan Assessment & Plan (1) Pure hypercholesterolemia: Code(s): E78.00 - Pure hypercholesterolemia, unspecified Plan: Reinforced low cholesterol diet Will recheck her labs and fasting lipids in 3 months for follow up (2) Asthma: Code(s): J45.909 - Unspecified asthma, uncomplicated Qualifiers: Asthma severity: mild Asthma persistence: persistent Asthma complication type: uncomplicated Qualified Code(s): J45.30 - Mild persistent asthma, uncomplicated Plan: Stable Continue Flovent HFA 110 mcg 1 inhalation BID and Albuterol HFA 2 puffs 4 times a day as needed; also uses Albuterol nebulization as needed (3) Migraine: Code(s): G43.909 - Migraine, unspecified, not intractable, without status migrainosus Qualifiers: Migraine type: unspecified Status migrainosus presence: without status migrainosus Intractability: not intractable Qualified Code(s): G43.909 - Migraine, unspecified, not intractable, without status migrainosus Plan: Stable on prophylactic Tx Continue Topiramate 25 mg BID and Nortriptyline 25 mg Q HS Reinforced avoidance of migraine triggers (4) Lumbar spondylosis: Code(s): M47.816 - Spondylosis without myelopathy or radiculopathy, lumbar region Plan: Reinforced activity and weight-lifting restrictions Continue Methocarbamol 750 mg TID PRN and Duloxetine 30 mg QD MRI of the lumbar spine last done in 05/2021 revealed s/p instrumented fusion at the L2-L3 level with laminectomy changes, with no significant canal or foraminal compromise, stable in appearance. Stable discogenic degenerative changes at multiple levels, with stable multilevel bilateral facet arthropathy. Multilevel disc bulging and foraminal disc protrusions are again noted, similar to the previous exam with no significant central spinal canal stenosis. No significant neural foraminal stenosis. No abnormal enhancement within the limitations of the study. Repeat lumbar spine x-rays done at [facility] last year showed stable post-op changes with no acute findings Follow up with Pain Management as scheduled - is going to have a trial of ROSARIO soon As she appears to be experiencing increased pain especially over left lower back with radiation of pain down the left leg, will refer her to physical therapy for further evaluation and management (5) Fibromyalgia: Code(s): M79.7 - Fibromyalgia Plan: Encouraged again on regular exercise and physical activity to help manage her fibromyalgia symptoms better Continue Pregabalin 150 mg TID and Nortriptyline 25 mg QHS; will increase her Duloxetine to 30 mg BID Was seen at [facility] by Dr. Darnell many years ago and she has not been back in a few years - was referred back, per request, last year but she was not seen nor scheduled for appointment Will refer her again to [facility] rheumatology for further evaluation and management (6) Rotator cuff tear arthropathy of left shoulder: Comment: S/P left rotator cuff surgery in September [address] Velázquez Code(s): M75.102 - Unspecified rotator cuff tear or rupture of left shoulder, not specified as traumatic; M12.812 - Other specific arthropathies, not elsewhere classified, left shoulder Plan: Was seen previously by orthopedics and was recommended to continue gentle physical therapy of her left shoulder but patient states that this did not really help much Follow up with orthopedics as scheduled (7) Primary osteoarthritis of both knees: Code(s): M17.0 - Bilateral primary osteoarthritis of knee Plan: Follow up with orthopedics as scheduled Has knee braces that she wears as needed for added stability to her knees and to help reduce her knee pain (8) Allergic rhinitis: Code(s): J30.9 - Allergic rhinitis, unspecified Qualifiers: Allergic rhinitis trigger: unspecified Allergic rhinitis seasonality: unspecified Qualified Code(s): J30.9 - Allergic rhinitis, unspecified Plan: Continue Loratadine 10 mg QD PRN (9) GERD without esophagitis: Code(s): K21.9 - Gastro-esophageal reflux disease without esophagitis Plan: Dietary restrictions reinforced Continue Pantoprazole 40 mg QD (10) Vitamin D deficiency: Code(s): E55.9 - Vitamin D deficiency, unspecified Plan: Continue Vitamin D2 38079 units once a week (11) Vitamin B12 deficiency: Code(s): E53.8 - Deficiency of other specified B group vitamins Plan: Continue Vitamin B12 1000 mcg QD (12) Insomnia: Comment: was on Trazodone 150 mg in the past but has not refilled Rx since 2016 Code(s): G47.00 - Insomnia, unspecified Qualifiers: Insomnia type: unspecified Qualified Code(s): G47.00 - Insomnia, unspecified Plan: Sleep hygiene reinforced Continue Trazodone 100 mg Q HS (13) Anxiety: Code(s): F41.9 - Anxiety disorder, unspecified Plan: Continue Lorazepam 0.5 mg TID PRN (Rx refilled), Hydroxyzine 25 mg TID PRN and Buspirone 10 mg BID Follow up with psychiatry as scheduled (14) Depression: Code(s): F32.9 - Major depressive disorder, single episode, unspecified Qualifiers: Depression Type: unspecified Qualified Code(s): F32.9 - Major depressive disorder, single episode, unspecified Plan: Continue Budeprion SR 100 mg 2 tablets BID Follow up with psychiatry as scheduled (15) Obesity (BMI 30-39.9): Code(s): E66.9 - Obesity, unspecified Plan: Reinforced diet; weight loss and exercise are unrealistic given patient's multiple physical issues and limited activity tolerance Plan Follow up in 3 months Orders: Orders PT Evaluation and Treatment 24 M54.50 - Low back pain, unspecified Lipid Panel 3 Months E78.00 - Pure hypercholesterolemia, unspecified Vitamin B12 and Folate 3 Months E53.8 - Deficiency of other specified B group vitamins Vitamin D 25-OH Total 3 Months E55.9 - Vitamin D deficiency, unspecified Complete Blood Count Auto Diff 3 Months D64.9 - Anemia, unspecified Comprehensive [place]. Panel Fast 3 Months E78.00 - Pure hypercholesterolemia, unspecified TSH reflex Free T4 3 Months E78.00 - Pure hypercholesterolemia, unspecified UA CC w/rflx Micro + Cult 3 Months R30.0 - Dysuria Referrals Rheumatology Referral M25.50 - Pain in unspecified joint, M79.7 - Fibromyalgia Medications: Changed From duloxetine 30 mg PO DAILY 30 days 30 caps 1RF M47.816 - Spondylosis without myelopathy or radiculopathy, lumbar region, M79.7 - Fibromyalgia To duloxetine 30 mg PO BID 60 caps 1RF 30 days M47.816 - Spondylosis without myelopathy or radiculopathy, lumbar region, M79.7 - Fibromyalgia Coding Level of Care Code Est Pt Level 4 (30139) Diagnoses Pure hypercholesterolemia E78.00 Mild persistent asthma without complication J45.30 Asthma severity: mild Asthma persistence: persistent Asthma complication type: uncomplicated Migraine without status migrainosus, not intractable, unspecified migraine type G43.909 Migraine type: unspecified Status migrainosus presence: without status migrainosus Intractability: not intractable Lumbar spondylosis M47.816 Fibromyalgia M79.7 Rotator cuff tear arthropathy of left shoulder M75.102; M12.812 Primary osteoarthritis of both knees M17.0 Allergic rhinitis, unspecified seasonality, unspecified trigger J30.9 Allergic rhinitis trigger: unspecified Allergic rhinitis seasonality: unspecified GERD without esophagitis K21.9 Vitamin D deficiency E55.9 Vitamin B12 deficiency E53.8 Insomnia, unspecified type G47.00 Insomnia type: unspecified Anxiety F41.9 Depression, unspecified depression type F32.9 Depression Type: unspecified Obesity (BMI 30-39.9) E66.9
== END 2023-08-19 15:21 | disposition home or self-care (01) ==
PROVIDERS: PCP Internal Medicine; Visit Provider Internal Medicine
DX: E78.00 Pure hypercholesterolemia, unspecified (principal); J45.30 Mild persistent asthma, uncomplicated; Z68.33 Body mass index [BMI] 33.0-33.9, adult; E66.9 Obesity, unspecified; G43.909 Migraine, unspecified, not intractable, without status migrainosus; M47.816 Spondylosis without myelopathy or radiculopathy, lumbar region; M79.7 Fibromyalgia; M75.102 Unspecified rotator cuff tear or rupture of left shoulder, not specified as traumatic; M12.812 Other specific arthropathies, not elsewhere classified, left shoulder; M17.0 Bilateral primary osteoarthritis of knee; J30.9 Allergic rhinitis, unspecified; K21.9 Gastro-esophageal reflux disease without esophagitis
CPT/HCPCS: 99214

== ENCOUNTER 2023-08-25 08:49 | Outpatient (REF) | payer OTHER, SELFPAY | END 2023-08-25 08:50 | disposition home or self-care (01) | LOC: HO.LAB 08:49 | PROVIDERS: PCP Internal Medicine; Visit Provider Internal Medicine | DX: Z13.89 Encounter for screening for other disorder (principal) ==

== ENCOUNTER 2023-08-26 10:22 | Outpatient (REF) | payer OTHER, SELFPAY ==
[2023-08-26 10:28] LABS: Appearance Urine Cloudy; Color Urine Yellow; Glucose Urine UA Negative (Negative); Leukocyte Esterase Urine Trace (Negative); Nitrite Urine Positive (Negative); PH 7.5 (5.0-9.0); Specific Gravity - Urine 1.015 (1.005-1.025); UMIC TRIGGER UACC YES; Urine Blood Negative (Negative); Urine Ketones Negative (Negative); Urine Protein Negative (Neg-Trace)
[2023-08-26 10:31] LABS: Bacteria Urine 4+ (None Seen); Hyaline Casts Urine 0-2 /LPF (0-2); RBC Urine 0-2 /HPF (0-2); Squamous Epithelial Cell Urine 0-2 /HPF (0-2); UACC Culture Trigger YES; WBC Urine 0-5 /HPF (0-5)
== END 2023-08-26 10:23 | disposition home or self-care (01) ==
LOC: HO.LNP 10:22
PROVIDERS: Visit Provider Internal Medicine
DX: Z00.00 Encounter for general adult medical examination without abnormal findings (principal); R30.0 Dysuria
CPT/HCPCS: 81001; 87086; 87088; 87186

== ENCOUNTER → 2023-09-08 09:26 | Outpatient (BNVA) | payer OTHER, SELFPAY | PROVIDERS: PCP Internal Medicine; Visit Provider Nurse Practitioner Family ==

== ENCOUNTER 2023-09-23 11:35 | Outpatient (AMB) | payer OTHER, SELFPAY ==
--- NOTE | 2023-09-23 11:37 | AM.OFFWIN_ITS ---
Intake Vital Signs 09/23/23 11:38 Height 5 ft 6 in Weight 206 lb BMI 33.2 BP 110/70 Pulse 92 Pulse Source Pulse Oximeter Temp 97.5 F Temp Source Temporal Artery Scan Pulse Oximetry (%) 98 Oxygen Delivery Method Room Air Intake Visit Reasons: EP pain back of calves (lobby) Intake Note: pt is here today pain back of calves started 2 weeks ago Patient Tobacco Use Status: Never used Tobacco Allergies codeine [Tylenol-Codeine #3] Allergy (Intermediate, Verified 09/23/23 12:00) Rash morphine Allergy (Intermediate, Verified 09/23/23 12:00) rash and itching nalbuphine [From Nubain] Allergy (Intermediate, Verified 09/23/23 12:00) Rash oxycodone [Percocet] Allergy (Intermediate, Verified 09/23/23 12:00) Rash propoxyphene [From Darvocet-N 100] Allergy (Intermediate, Verified 09/23/23 12:00) Rash tramadol [Ultram] Allergy (Intermediate, Verified 09/23/23 12:00) Rash ibuprofen [From Motrin] Allergy (Mild, Verified 09/23/23 12:00) RASH montelukast [Singulair] Allergy (Unknown, Verified 09/23/23 12:00) Unknown Medication List - Last Reconciled 09/23/23 by Colin Khan MD [ADULT PULL-UPS -- MEDIUM SIZE As directed] [BED PADS As directed] buspirone 10 mg PO BID 30 days cholecalciferol (vitamin D3) 50 mcg PO DAILY 90 days cyanocobalamin (vitamin B-12) 1,000 mcg PO DAILY 90 days divalproex 500 mg PO BID duloxetine 30 mg PO BID 30 days ergocalciferol (vitamin D2) (Vitamin D2) 1,250 mcg PO QWEEK michael (Zingiber officinalis) (Dramamine Non-Drowsy) 500 mg PO BID [INCONTINENCE PADS Use as directed] [LEFT KNEE BRACE As directed] loratadine 10 mg PO DAILY PRN 30 days miscellaneous medical supply 1 ea miscellaneous DAILY pantoprazole 40 mg PO DAILY pregabalin 150 mg PO TID 30 days [QUAD CANE As directed] [QUAD CANE (lightweight) As directed] [RIGHT KNEE BRACE As directed] [RIGHT THUMB SPLINT As directed] [RUBBER TIPS FOR QUAD CANE As directed] [WRIST BRACE (right wrist) - MEDIUM As directed] Do you need a note to return to daycare/school/sports/work: No HPI EP pain back of calves (lobby) HPI Details 67 yr old female presents to the office for a sick visit. Patient is complaining of pain in both her heels for the past few weeks. Does not recall any fall or injury. Patient uses a cane to ambulate. [facility] Medical History Folliculitis Pure hypercholesterolemia Allergic rhinitis Insomnia Multiple joint pain GERD without esophagitis Vitamin D deficiency Lumbar spondylosis Obesity (BMI 30-39.9) Migraine Primary osteoarthritis of both knees Urinary incontinence Rotator cuff tear, left Depression Asthma Fibromyalgia Non-toxic multinodular goiter Anxiety Surgical History Status post rotator cuff surgery S/P rotator cuff repair Status post right rotator cuff repair (~07/26/18) History of hysterectomy History of cholecystectomy History of laminectomy (~2009) Family History Father Diabetes Mother Medical history unknown Social History Household Members: None Housing: Apartment Do you presently have visiting nurse or other home services: No Alcohol intake: former Patient Tobacco Use Status: Never used Tobacco e-Cigarette/Vaping Use: Never Used Second Hand Smoke Exposure: No service: No Current occupational status: disabled Cognitive needs: Yes (cane) Hearing needs: No Vision needs: Yes Physical Exam Vital Signs: Last Vital Signs Temp 97.5 F 09/23/23 11:38 Pulse 92 09/23/23 11:38 BP 110/70 09/23/23 11:38 Pulse Ox 98 09/23/23 11:38 Oxygen Delivery Method Room Air 09/23/23 11:38 BMI result Body Mass Index 33.2 Const General: cooperative and healthy appearing Nutritional Appearance: well nourished Orientation/consciousness: patient oriented x3 Limitations: no limitations HEENT Head: Yes normal to inspection Eyes General: appearance normal, both eyes and all related structures Neck Neck: Yes normal visual inspection Chest Chest palpation & inspection: normal palpation of entire chest wall Resp Effort & Inspection: normal respiratory effort Neuro General: patient oriented x3 Extrem Other: Right and left foot: Bilateral tender tendo calcaneus. Unable to lift her heels above ground Assessment & Plan Assessment & Plan (1) Tendinitis: Code(s): M77.9 - Enthesopathy, unspecified Plan: Anti-inflammatory called in. Patient was advised to use a heating pad and keep the foot elevated. Coding Level of Care Code Est Pt Level 3 (80838) Diagnoses Tendinitis M77.9
[2023-09-23 11:38] VITALS: BP 110/70; PULSE 92; TEMP 36.4; O2SAT 98; BMI 33.2
== END 2023-09-23 12:24 | disposition home or self-care (01) ==
PROVIDERS: PCP Internal Medicine; Visit Provider Internal Medicine
DX: M77.9 Enthesopathy, unspecified (principal)
CPT/HCPCS: 99213

== ENCOUNTER 2023-09-30 10:15 | Outpatient (AMB) | payer OTHER, SELFPAY ==
[2023-09-30 10:17] VITALS: BP 118/76; PULSE 93; TEMP 36.7; O2SAT 97; BMI 34.1
--- NOTE | 2023-09-30 10:17 | AM.OFFWIN_ITS ---
Intake Vital Signs 09/30/23 10:17 Height 5 ft 6 in Weight 211 lb BMI 34.1 BP 118/76 Blood Pressure Location Lt brachial Position Sitting Pulse 93 Pulse Source Pulse Oximeter Temp 98.1 F Temp Source Oral Pulse Oximetry (%) 97 Oxygen Delivery Method Room Air Intake Visit Reasons: EP/ Dizziness/ Wart on RT hand Intake Note: Pt presents to the office today for c/o dizziness that started about 3 months ago. Pt states she gets dizzy everyday. Pt also states she has a wart/ bump on her right middle finger that has been there for about 6 months. Patient Tobacco Use Status: Never used Tobacco Allergies codeine [Tylenol-Codeine #3] Allergy (Intermediate, Verified 09/30/23 10:21) Rash morphine Allergy (Intermediate, Verified 09/30/23 10:21) rash and itching nalbuphine [From Nubain] Allergy (Intermediate, Verified 09/30/23 10:21) Rash oxycodone [Percocet] Allergy (Intermediate, Verified 09/30/23 10:21) Rash propoxyphene [From Darvocet-N 100] Allergy (Intermediate, Verified 09/30/23 10:21) Rash tramadol [Ultram] Allergy (Intermediate, Verified 09/30/23 10:21) Rash ibuprofen [From Motrin] Allergy (Mild, Verified 09/30/23 10:21) RASH montelukast [Singulair] Allergy (Unknown, Verified 09/30/23 10:21) Unknown HPI HPI Comments History of Present Illness Details Patient is a 67-year-old female in today for sick visit. Patient has a past medical history significant for vertigo, KAIT, depression, GERD, chronic lower back pain. Patient states that for the past 6 months she has had i ntermittent dizziness. Denies nausea, vomiting, chest pain, numbness, diarrhea. Patient states she has tried physical therapy for vertigo in the past with little to moderate effect. Patient states that with this episode of dizziness she has not tried any medication for relief. Patient also reports wart on her right middle finger. Patient states this is been present for several months. Denies pain, denies any tingling or numbness, does not interfere with daily living. Patient has not tried any medication or therapy for this. REPLACED BY [facility] Medical History Folliculitis Pure hypercholesterolemia Allergic rhinitis Insomnia Multiple joint pain GERD without esophagitis Vitamin D deficiency Lumbar spondylosis Obesity (BMI 30-39.9) Migraine Primary osteoarthritis of both knees Urinary incontinence Rotator cuff tear, left Depression Asthma Fibromyalgia Non-toxic multinodular goiter Anxiety Surgical History Status post rotator cuff surgery S/P rotator cuff repair Status post right rotator cuff repair (~07/26/18) History of hysterectomy History of cholecystectomy History of laminectomy (~2009) Family History Father Diabetes Mother Medical history unknown Social History Household Members: None Housing: Apartment Do you presently have visiting nurse or other home services: No Alcohol intake: former Patient Tobacco Use Status: Never used Tobacco e-Cigarette/Vaping Use: Never Used Second Hand Smoke Exposure: No service: No Current occupational status: disabled Cognitive needs: Yes (cane) Hearing needs: No Vision needs: Yes Review of Systems Const All systems reviewed & are unremarkable except as noted in HPI and below Denies headache(s) Eyes Denies diplopia, Denies loss of peripheral vision and Denies loss of vision ENT Reports vertigo, Reports dizziness, Denies ear discharge, Denies headache(s), Denies sinus pain and Denies sore throat Card Denies chest pain and Denies dyspnea Resp Denies dyspnea GI Denies diarrhea, Denies nausea and Denies vomiting Musc Denies tingling Neuro Reports Abnormal speech present, Reports vertigo, Reports dizziness, Denies headache(s), Denies loss of vision, Denies Sensory deficit (Neuro) and Denies tingling Physical Exam Vital Signs: Last Vital Signs Temp 98.1 F 09/30/23 10:17 Pulse 93 09/30/23 10:17 BP 118/76 09/30/23 10:17 Pulse Ox 97 09/30/23 10:17 Oxygen Delivery Method Room Air 09/30/23 10:17 BMI result Body Mass Index 34.1 Vital signs reviewed stable. Const Other: Appearance: Alert.? Oriented X3.? No acute distress.? Head: Normocephalic, atraumatic, no step-offs or deformities Eyes: Pupils equal, round and reactive to light.?EOMI. ENT: Pharynx normal.?TM intact and pearly way. Neck: Normal inspection.? Neck supple.? CVS: Normal heart rate and rhythm.? Pulses normal.? Respiratory: No respiratory distress.? Breath sounds normal.? Neuro: Oriented X 3.? No motor deficit.? No sensory deficit. CN 2-12 intact Patient unable to perform Tryon-Hallpike maneuver due to back pain. Orientation/consciousness: patient oriented x3 Eyes Pupils: Equal, round and reactive pupils present Neuro General: patient oriented x3, moves all extremities, CN's II-XI intact bilaterally and Tryon Hallpike (Unable to perform due to back pain patient refused) Cranial nerves: Yes Equal, round and reactive pupils present, Yes Bilaterally intact EOM present, Yes Ability to bilaterally rotate head present and Yes Ability to bilaterally elevate shoulders present Cognition (Neuro): normal cognition Speech: Abnormal speech present Gait exam (Neuro): Normal gait present Motor exam (neuro): 5/5 motor strength present throughout, Motor fasciculations not present and Pronator motor function present Sensory Exam: No Sensory deficit (Neuro) Coordination: [id number] test normal Romberg Test: Negative Assessment & Plan Assessment & Plan (1) Benign paroxysmal vertigo: Comment: Patient will be given meclizine to be taken as directed. Patient has been educated to stay hydrated. Patient has been educated on signs of worsening symptoms and when to report to the walk-in or when to present to the ED Code(s): H81.10 - Benign paroxysmal vertigo, unspecified ear Qualifiers: Laterality: unspecified laterality Qualified Code(s): H81.10 - Benign paroxysmal vertigo, unspecified ear Plan: Take your medications as prescribed. If you were prescribed antibiotics today, it is important that you take your medication to their entirety, do not skip any doses, do not finish them early. Follow-up with your primary care provider this week. Return to the emergency department with new or worsening symptoms. Such as fevers, chills, chest pain, shortness of breath, nausea, vomiting, dizziness, headache, vision changes, lethargy In case of emergency call 911 (2) Wart of hand: Comment: Patient educated to use [id number] cryotherapy for wart removal. Code(s): B07.9 - Viral wart, unspecified Plan: Take your medications as prescribed. If you were prescribed antibiotics today, it is important that you take your medication to their entirety, do not skip any doses, do not finish them early. Follow-up with your primary care provider this week. Return to the emergency department with new or worsening symptoms. Such as fevers, chills, chest pain, shortness of breath, nausea, vomiting, dizziness, headache, vision changes, lethargy In case of emergency call 911 Plan Follow-up with PCP Medications: New meclizine 25 mg PO DAILY PRN 30 tabs 0RF motion sickness Coding Level of Care Code Est Pt Level 3 (74437) Diagnoses Benign paroxysmal vertigo, unspecified laterality H81.10 Laterality: unspecified laterality Wart of hand B07.9 Time Spent (min) 24
== END 2023-09-30 11:47 | disposition home or self-care (01) ==
PROVIDERS: PCP Internal Medicine; Visit Provider Nurse Practitioner Primary Care
DX: H81.13 Benign paroxysmal vertigo, bilateral (principal); B07.9 Viral wart, unspecified
CPT/HCPCS: 99213

== ENCOUNTER 2023-10-09 10:08 | Outpatient (AMB) | payer OTHER, SELFPAY ==
--- NOTE | 2023-10-09 10:20 | A.OFFVIS_ITS ---
Intake Vital Signs 10/09/23 10:21 Height 5 ft 6 in Weight 213 lb 2.992 oz BMI 34.4 BP 124/76 Blood Pressure Location Rt brachial Position Sitting Pulse 100 Pulse Source Pulse Oximeter Pulse Oximetry (%) 97 Oxygen Delivery Method Room Air Intake Visit Reasons: Joint Pain/CM Intake Note: New patient presents today for consult, internally referred by PCP Dr Soler C/o pain in multiple joints. Pain is all the time. Also reports difficulty sleeping at night. 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 Email Marketing Intern Required: Yes Email Marketing Intern Language: Prosthetic Assistant Name: Mariah [id number] Information Interpreted: clinical only Accompanied by: Self / Same As Patient Allergies codeine [Tylenol-Codeine #3] Allergy (Intermediate, Verified 10/09/23 10:27) Rash morphine Allergy (Intermediate, Verified 10/09/23 10:27) rash and itching nalbuphine [From Nubain] Allergy (Intermediate, Verified 10/09/23 10:27) Rash oxycodone [Percocet] Allergy (Intermediate, Verified 10/09/23 10:27) Rash propoxyphene [From Darvocet-N 100] Allergy (Intermediate, Verified 10/09/23 10:27) Rash tramadol [Ultram] Allergy (Intermediate, Verified 10/09/23 10:27) Rash ibuprofen [From Motrin] Allergy (Mild, Verified 10/09/23 10:27) RASH montelukast [Singulair] Allergy (Unknown, Verified 10/09/23 10:27) Unknown Medication List - Last Reconciled 10/09/23 by Elder Tavarez MD [ADULT PULL-UPS -- MEDIUM SIZE As directed] [BED PADS As directed] bupropion HCl SR mg PO BID buspirone 10 mg PO BID 30 days cholecalciferol (vitamin D3) 50 mcg PO DAILY 90 days cyanocobalamin (vitamin B-12) 1,000 mcg PO DAILY 90 days divalproex 500 mg PO BID duloxetine 30 mg PO BID 30 days ergocalciferol (vitamin D2) (Vitamin D2) 1,250 mcg PO QWEEK [Heating Pad As directed] heating pads As directed [INCONTINENCE PADS Use as directed] [LEFT KNEE BRACE As directed] loratadine 10 mg PO DAILY PRN 30 days meclizine 25 mg PO DAILY PRN meloxicam 15 mg PO DAILY miscellaneous medical supply 1 ea miscellaneous DAILY pantoprazole 40 mg PO DAILY pregabalin 150 mg PO TID 30 days [QUAD CANE As directed] [QUAD CANE (lightweight) As directed] [RIGHT KNEE BRACE As directed] [RIGHT THUMB SPLINT As directed] [RUBBER TIPS FOR QUAD CANE As directed] [WRIST BRACE (right wrist) - MEDIUM As directed] HPI HPI Comments History of Present Illness Details ew patient presents today for consult, internally referred by PCP Dr Soler C/o pain in multiple joints. Pain is all the time. Also reports difficulty sleeping at night. 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 [facility] Medical History Folliculitis Pure hypercholesterolemia Allergic rhinitis Insomnia Multiple joint pain GERD without esophagitis Vitamin D deficiency Lumbar spondylosis Obesity (BMI 30-39.9) Migraine Primary osteoarthritis of both knees Urinary incontinence Rotator cuff tear, left Depression Asthma Fibromyalgia Non-toxic multinodular goiter Anxiety Surgical History Status post rotator cuff surgery S/P rotator cuff repair Status post right rotator cuff repair (~07/26/18) History of hysterectomy History of cholecystectomy History of laminectomy (~2009) Family History Father Diabetes Mother Medical history unknown Social History Household Members: None Housing: Apartment Do you presently have visiting nurse or other home services: No Alcohol intake: former Patient Tobacco Use Status: Never used Tobacco e-Cigarette/Vaping Use: Never Used Second Hand Smoke Exposure: No service: No Current occupational status: disabled Cognitive needs: Yes (cane) Hearing needs: No Vision needs: Yes Female Reproductive History Menstrual Total pregnancies: 6 Full term: 2 Review of Systems Const Reports fatigue and Reports weakness Eyes Reports dry eyes and Reports itchy eyes ENT Details: bleeding gums Reports neck pain and Reports sore throat GI Reports heartburn Reports difficulty voiding and Reports nocturia Musc Reports back pain, Reports myalgias, Reports arthralgias, Reports neck pain and Reports stiffness Neuro Reports weakness Psych Details: dizziness Reports abnormal sleep pattern, Reports anxiety and Reports depression Endo Reports fatigue Aller/Immun Reports itchy eyes Physical Exam Vital Signs: Last Vital Signs Pulse 100 10/09/23 10:21 BP 124/76 10/09/23 10:21 Pulse Ox 97 10/09/23 10:21 Oxygen Delivery Method Room Air 10/09/23 10:21 BMI result Body Mass Index 34.4 Const General: cooperative, healthy appearing and comfortable Nutritional Appearance: obese morbidly obese Orientation/consciousness: patient oriented x3 Limitations: ambulation with cane HEENT Head: Yes normocephalic and Yes atraumatic Resp Effort & Inspection: normal respiratory effort and able to speak in complete sentences Auscultation: clear to auscultation bilaterally Cardio Rate: regular rate Rhythm: regular rhythm Neuro General: patient oriented x3 Extrem Other: OA changes both hands with no active synovitis few FM tender points Assessment & Plan Assessment & Plan (1) Fibromyalgia, primary: Code(s): M79.7 - Fibromyalgia Plan: 67 y/o F with fibromylgia refered for evaluation. I don't see any signs suggestive of autoimmunde rheumatic ds Patient has a psychiatrist, I suggested finding a psychotherapist. Consider a sleep study She's already on Cymbalta & Lyrica. She can continue f/u with PCP Plan 25 minutes spent reviewing chart, evaluating patient & documenting Coding Level of Care Code New Pt Level 3 (99840) Diagnoses Fibromyalgia, primary M79.7
[2023-10-09 10:21] VITALS: BP 124/76; PULSE 100; O2SAT 97; BMI 34.4
== END 2023-10-09 11:01 | disposition home or self-care (01) ==
PROVIDERS: PCP Internal Medicine; Visit Provider Student in an Organized Health Care Education/Training Program
DX: M79.7 Fibromyalgia (principal)
CPT/HCPCS: 99203

== ENCOUNTER → 2023-10-09 10:08 | Outpatient (BNVA) | payer OTHER, SELFPAY | PROVIDERS: PCP Internal Medicine; Visit Provider Student in an Organized Health Care Education/Training Program | DX: M79.7 Fibromyalgia (principal) | CPT/HCPCS: 99202 ==

== ENCOUNTER 2023-10-14 09:11 | Outpatient (AMB) | payer OTHER, SELFPAY ==
[2023-10-14 10:06] VITALS: BP 120/80; PULSE 98; TEMP 36.3; O2SAT 98; BMI 34.1
--- NOTE | 2023-10-14 10:06 | AM.OFFWIN_ITS ---
Intake Vital Signs 10/14/23 10:06 Height 5 ft 6 in Weight 211 lb BMI 34.1 BP 120/80 Blood Pressure Location Lt brachial Position Sitting Pulse 98 Pulse Source Pulse Oximeter Temp 97.3 F Temp Source Temporal Artery Scan Pulse Oximetry (%) 98 Oxygen Delivery Method Room Air Intake Visit Reasons: EP fell back pain (lobby) Intake Note: pt is here today for fall back pain started yesterday Patient Tobacco Use Status: Never used Tobacco Allergies codeine [Tylenol-Codeine #3] Allergy (Intermediate, Verified 10/14/23 10:42) Rash morphine Allergy (Intermediate, Verified 10/14/23 10:42) rash and itching nalbuphine [From Nubain] Allergy (Intermediate, Verified 10/14/23 10:42) Rash oxycodone [Percocet] Allergy (Intermediate, Verified 10/14/23 10:42) Rash propoxyphene [From Darvocet-N 100] Allergy (Intermediate, Verified 10/14/23 10:42) Rash tramadol [Ultram] Allergy (Intermediate, Verified 10/14/23 10:42) Rash ibuprofen [From Motrin] Allergy (Mild, Verified 10/14/23 10:42) RASH montelukast [Singulair] Allergy (Unknown, Verified 10/14/23 10:42) Unknown Medication List - Last Reconciled 10/14/23 by Colin Khan MD [ADULT PULL-UPS -- MEDIUM SIZE As directed] [BED PADS As directed] bupropion HCl SR mg PO BID buspirone 10 mg PO BID 30 days cholecalciferol (vitamin D3) 50 mcg PO DAILY 90 days cyanocobalamin (vitamin B-12) 1,000 mcg PO DAILY 90 days divalproex 500 mg PO BID duloxetine 30 mg PO BID 30 days ergocalciferol (vitamin D2) (Vitamin D2) 1,250 mcg PO QWEEK [Heating Pad As directed] heating pads As directed [INCONTINENCE PADS Use as directed] [LEFT KNEE BRACE As directed] loratadine 10 mg PO DAILY PRN 30 days meclizine 25 mg PO DAILY PRN meloxicam 15 mg PO DAILY miscellaneous medical supply 1 ea miscellaneous DAILY pantoprazole 40 mg PO DAILY pregabalin 150 mg PO TID 30 days [QUAD CANE As directed] [QUAD CANE (lightweight) As directed] [RIGHT KNEE BRACE As directed] [RIGHT THUMB SPLINT As directed] [RUBBER TIPS FOR QUAD CANE As directed] [WRIST BRACE (right wrist) - MEDIUM As directed] Do you need a note to return to daycare/school/sports/work: No HPI EP fell back pain (lobby) HPI Details 67-year-old female presents to the [facility] for a sick visit. Patient uses a walker at baseline. This week patient fell twice. In the 1st instance, she landed on her right hip. Able to get up on her own. Complains of pain in the hip area. Walking with the use of a cane. Second instance, she rolled out of bed and landed on her carpet. Able to get up on her own. Patient is complaining of discomfort in the lower back. [facility] Medical History Folliculitis Pure hypercholesterolemia Allergic rhinitis Insomnia Multiple joint pain GERD without esophagitis Vitamin D deficiency Lumbar spondylosis Obesity (BMI 30-39.9) Migraine Primary osteoarthritis of both knees Urinary incontinence Rotator cuff tear, left Depression Asthma Fibromyalgia Non-toxic multinodular goiter Anxiety Surgical History Status post rotator cuff surgery S/P rotator cuff repair Status post right rotator cuff repair (~07/26/18) History of hysterectomy History of cholecystectomy History of laminectomy (~2009) Family History Father Diabetes Mother Medical history unknown Social History Household Members: None Housing: Apartment Do you presently have visiting nurse or other home services: No Alcohol intake: former Patient Tobacco Use Status: Never used Tobacco e-Cigarette/Vaping Use: Never Used Second Hand Smoke Exposure: No service: No Current occupational status: disabled Cognitive needs: Yes (cane) Hearing needs: No Vision needs: Yes Physical Exam Vital Signs: Last Vital Signs Temp 97.3 F 10/14/23 10:06 Pulse 98 10/14/23 10:06 BP 120/80 10/14/23 10:06 Pulse Ox 98 10/14/23 10:06 Oxygen Delivery Method Room Air 04/09/24 10:06 BMI result Body Mass Index 34.1 Const General: cooperative and healthy appearing Nutritional Appearance: well nourished Orientation/consciousness: patient oriented x3 Limitations: no limitations HEENT Head: Yes normal to inspection Eyes General: appearance normal, both eyes and all related structures Neck Neck: Yes normal visual inspection Chest Chest palpation & inspection: normal palpation of entire chest wall Resp Effort & Inspection: normal respiratory effort Back/Spine/Pelvis Other: No spinal tenderness. No paraspinal spasm. Neuro General: patient oriented x3 Assessment & Plan Assessment & Plan (1) Pain of right hip: Code(s): M25.551 - Pain in right hip Plan: X-ray images personally reviewed by me. No fractures seen. Cyclobenzaprine added to the regimen. Orders: Orders XR hip RT w PEL1V Today M25.551 - Pain in right hip Coding Level of Care Code Est Pt Level 4 (79998) Diagnoses Pain of right hip M25.551
== END 2023-10-14 11:28 | disposition home or self-care (01) ==
PROVIDERS: PCP Internal Medicine; Visit Provider Internal Medicine
DX: M25.551 Pain in right hip (principal)
CPT/HCPCS: 99214

== ENCOUNTER 2023-10-14 10:45 | Outpatient (REF) | payer OTHER, SELFPAY ==
--- NOTE | ~2023-10-14 | XR_ITS ---
EXAMINATION: XR HIP, RIGHT CLINICAL INFORMATION: Right hip pain. COMPARISON: Radiographs dated 12/09/2018. TECHNIQUE: AP and frog-leg lateral views of the right hip. FINDINGS: Bony alignment and mineralization are normal. The right acetabular joint space shows mild narrowing superolaterally. There is mild irregularity of the articular surface of the right acetabular roof. The right femoral head is smooth. There is no fracture or dislocation. The right sacroiliac joint and the pubic symphysis are intact. Multiple pelvic phleboliths are seen. There is no foreign body. XR/XR hip RT w PEL1V IMPRESSION: There is very mild osteoarthritic change of the right hip. No fracture or dislocation is seen.
== END 2023-10-14 10:46 | disposition home or self-care (01) ==
LOC: HO.HMGCX 10:45
PROVIDERS: PCP Internal Medicine; Visit Provider Internal Medicine
DX: M25.551 Pain in right hip (principal)
CPT/HCPCS: 73502

== ENCOUNTER 2023-10-15 13:57 | Outpatient (AMB) | payer OTHER, SELFPAY ==
[2023-10-15 14:23] VITALS: BP 110/80; PULSE 102; TEMP 36.4; O2SAT 97; BMI 34.1
--- NOTE | 2023-10-15 14:23 | MHC.OFFWIV ---
Intake Vital Signs 10/15/23 14:23 Height 5 ft 6 in Weight 211 lb BMI 34.1 BP 110/80 Blood Pressure Location Lt brachial Position Sitting Pulse 102 H Pulse Source Pulse Oximeter Temp 97.5 F Temp Source Temporal Artery Scan Pulse Oximetry (%) 97 Oxygen Delivery Method Room Air Intake Visit Reasons: EP Fell 3 times ~lower AB pain, whole body Intake Note: Pt presents to the office today for c/o lower abdominal pain and whole body pain. Pt states she fell out of bed 3 times within the past 4 days. Patient Tobacco Use Status: Never used Tobacco Allergies codeine [Tylenol-Codeine #3] Allergy (Intermediate, Verified 10/15/23 14:25) Rash morphine Allergy (Intermediate, Verified 10/15/23 14:25) rash and itching nalbuphine [From Nubain] Allergy (Intermediate, Verified 10/15/23 14:25) Rash oxycodone [Percocet] Allergy (Intermediate, Verified 10/15/23 14:25) Rash propoxyphene [From Darvocet-N 100] Allergy (Intermediate, Verified 10/15/23 14:25) Rash tramadol [Ultram] Allergy (Intermediate, Verified 10/15/23 14:25) Rash ibuprofen [From Motrin] Allergy (Mild, Verified 10/15/23 14:25) RASH montelukast [Singulair] Allergy (Unknown, Verified 10/15/23 14:25) Unknown HPI HPI Comments History of Present Illness Details Son and daughter in law present She said she fell 3 time this week Last fall was this am 5am Lives alone Patient said difficulty sleeping; chronic aches. Has been having depression and difficult to sleep She denies SI or HI She has been waking up on the floor Bed is approx 2 feet off ground Unusure if she hit head but denies headache She states she is unsure how long she is on the floor for. Takes about 20-25 minutes to stand up Pain in lower abdomen after fall; fell onto abdomen No blood thinner use 10/10 lower abdominal pain She states urine and bowel movement fine; states doesnt pee often but thinks because she isnt drinking Vomit x 3 tumes yesterday States when she tried to eat she has nausea and vomiting. Unable to keep anything down per patient Vomiting started 2-3 days ago [facility] Medical History Folliculitis Pure hypercholesterolemia Allergic rhinitis Insomnia Multiple joint pain GERD without esophagitis Vitamin D deficiency Lumbar spondylosis Obesity (BMI 30-39.9) Migraine Primary osteoarthritis of both knees Urinary incontinence Rotator cuff tear, left Depression Asthma Fibromyalgia Non-toxic multinodular goiter Anxiety Surgical History Status post rotator cuff surgery S/P rotator cuff repair Status post right rotator cuff repair (~07/26/18) History of hysterectomy History of cholecystectomy History of laminectomy (~2009) Family History Father Diabetes Mother Medical history unknown Social History Household Members: None Housing: Apartment Do you presently have visiting nurse or other home services: No Alcohol intake: former Patient Tobacco Use Status: Never used Tobacco e-Cigarette/Vaping Use: Never Used Second Hand Smoke Exposure: No service: No Current occupational status: disabled Cognitive needs: Yes (cane) Hearing needs: No Vision needs: Yes Review of Systems Const Denies chills, Denies fever(s) and Reports weakness (generalized) Eyes Denies blurry vision Card Denies chest pain and Denies dyspnea Resp Denies cough and Denies dyspnea GI Reports abdominal pain, Denies melena, Denies hematochezia, Denies diarrhea, Reports nausea and Reports vomiting Denies difficulty voiding Musc Reports back pain Neuro Denies confusion, Denies focal weakness and Reports weakness (generalized) Psych Denies confusion Physical Exam Vital Signs: Last Vital Signs Temp 97.5 F 10/15/23 14:23 Pulse 102 H 10/15/23 14:23 BP 110/80 10/15/23 14:23 Pulse Ox 97 10/15/23 14:23 Oxygen Delivery Method Room Air 10/15/23 14:23 BMI result Body Mass Index 34.1 General: Non-toxic, NAD. Speaking full sentences. Skin: Warm dry throughout Eye: EOMI, pERRLA HENT: Airway patent. Uvula midline. No pharyngeal erythema or edema. No [employer]. Moist mucosal membranes Bilateral canals clear. TM non-erythematous, non-bulging. No TM perforation or hemotympanum noted. Respiratory: CTA bilaterally. No wheezes, rales or rhonchi Cardiac: RRR. No murmur Abdominal: BS present. Diffuse tenderness LUQ and diffuse lower abdomen. MSK: Diffuse lumbar paravertebral muscle tenderness to palpation. Negative bilateral SLR. Neurology: A/O. No aphasia or facial droop. Psych: Good mood and affect Const General: No confusion Orientation/consciousness: No confusion Neuro General: No confusion Assessment & Plan Assessment & Plan (1) Abdominal pain: Code(s): R10.9 - Unspecified abdominal pain Qualifiers: Abdominal location: lower abdomen, unspecified Qualified Code(s): R10.30 - Lower abdominal pain, unspecified Plan: Patient seen and evaluated. Seen for second time in 2 days; xray of hip/pelvis from yesterday was not read yet. + abdominal pain, generalized weakness and vomiting Discussed with pt and family that best managed in the ER with labs, fluids and possible imaging They agree and will being her for eval. She preferred [facility]. Expect called to [facility] ER Patient gave verbal understanding and had no additional questions or concerns at time of discharge All questions answered (2) Weakness: Code(s): R53.1 - Weakness Plan: see above (3) Fall: Code(s): W19.XXXA - Unspecified fall, initial encounter Qualifiers: Encounter type: subsequent encounter Qualified Code(s): W19.XXXD - Unspecified fall, subsequent encounter Plan: see above Coding Level of Care Code Est Pt Level 3 (23081) Diagnoses Abdominal pain R10.30 Abdominal location: lower abdomen, unspecified Weakness R53.1 Fall, subsequent encounter W19.XXXD Encounter type: subsequent encounter
== END 2023-10-15 14:51 | disposition home or self-care (01) ==
PROVIDERS: PCP Internal Medicine; Visit Provider Physician Assistant
DX: R10.30 Lower abdominal pain, unspecified (principal); R53.1 Weakness; W19.XXXD Unspecified fall, subsequent encounter
CPT/HCPCS: 99213

== ENCOUNTER 2023-10-20 09:15 | Outpatient (REF) | payer OTHER, SELFPAY ==
--- NOTE | ~2023-10-20 | XR_ITS ---
EXAMINATION: XR SACROILIAC JOINTS CLINICAL INFORMATION: Myalgia other site, patient fell, pain. COMPARISON: 10/14/2023 pelvis and right hip. TECHNIQUE: 3 views of the sacroiliac joints FINDINGS: Redemonstration of inferior aspect of the partially imaged spinal stabilization hardware. Mild degenerative changes on limited views of the bilateral hips. Moderate degenerative changes with hypertrophic change in the bilateral sacroiliac joints. XR/XR sacroiliac joint min 3V IMPRESSION: 1. Moderate degenerative changes in the bilateral sacroiliac joints. 2. Mild degenerative changes on limited views of the bilateral hips.
[2023-10-20 09:36] LABS: MANUAL DIFF FLAG NO
[2023-10-20 09:52] LABS: Basophils Percent Auto 0.5 % (0-2); Eosinophils Absolute Auto 0.1 X10*3/uL (0.0-0.4); Eosinophils Percent Auto 1.9 % (0-4); Hematocrit 43.3 % (37.0-47.0); Imm Gran Abs Auto 0.01 X10*3/uL (0.00-0.03); Imm Gran Pct Auto 0.2 % (0.0-0.4); Lymphocytes Absolute Auto 3.4 X10*3/uL (1.2-4.9); Lymphocytes Percent Auto 58.4 % (20-40); Mean Corpuscular HGB Conc 32.3 g/dl (31.0-35.0); Mean Corpuscular Hemoglobin 28.1 pg (27.0-33.0); Mean Corpuscular Volume 86.9 fL (80.0-98.0); Mean Platelet Volume 9.9 fL (9.4-12.3); Monocytes Absolute Auto 0.6 X10*3/uL (0.1-1.2); Monocytes Percent Auto 9.6 % (2-11); Neutrophils Absolute Auto 1.7 x10*3/uL (2.0-8.3); Neutrophils Percent Auto 29.4 % (45-73); Platelet Count 216 X10*3/uL (160-400); Red Blood Count 4.98 X10*6/uL (4.20-5.50); Red Cell Distribution Width 15.7 % (11.0-16.0); White Blood Count 5.8 X10*3/uL (4.8-10.8)
[2023-10-20 10:34] LABS: Alanine Aminotransferase 17 U/L (0-31); Albumin Level 3.9 g/dL (3.5-5.0); Alkaline Phosphatase 82 U/L (39-117); Anion Gap 13 (12-20); Aspartate Amino Transferase 18 U/L (5-31); Bilirubin Total 0.2 mg/dL (0.0-1.0); Blood Urea Nitrogen 20 mg/dL (9-16); Calcium 9.4 mg/dL (8.4-10.2); Carbon Dioxide 28 mmol/L (22-29); Chloride 103 mmol/L (96-108); Cholesterol 195 mg/dL (<200); Estimated Glomerular Filt Rate > 60; Glucose Fasting 121 mg/dL (60-99); HDL Cholesterol 63 mg/dL (>40); LDL Cholesterol Calculated 111 mg/dL (<100); Potassium 4.2 mmol/L (3.3-5.1); Sodium 140 mmol/L (135-145); Total Protein 7.7 g/dL (6.5-8.0); Triglycerides 105 mg/dL (<150)
[2023-10-20 10:50] LABS: TSH reflex Free T4 6.16 uIU/mL (0.32-4.0); Vitamin D 25-OH Total 32.9 ng/mL (>30)
[2023-10-20 10:59] LABS: Folate 6.6 ng/mL (> or = 4.0); Vitamin B12 > 2000 pg/mL (200-900)
[2023-10-20 11:29] LABS: Free T4 (Free Thyroxine) 0.87 ng/dL (0.71-1.85)
== END 2023-10-20 09:16 | disposition home or self-care (01) ==
LOC: HO.LAB 09:15
PROVIDERS: PCP Internal Medicine; Visit Provider Internal Medicine
DX: M53.3 Sacrococcygeal disorders, not elsewhere classified (principal); M79.18 Myalgia, other site; E53.8 Deficiency of other specified B group vitamins; E78.00 Pure hypercholesterolemia, unspecified; D64.9 Anemia, unspecified; E55.9 Vitamin D deficiency, unspecified; Z91.81 History of falling
CPT/HCPCS: 36415; 72202; 80053; 80061; 82306; 82607; 82746; 84439; 84443; 85025

== ENCOUNTER 2023-10-22 10:42 | Outpatient (REF) | payer OTHER, SELFPAY ==
[2023-10-22 10:58] LABS: Appearance Urine Clear; Color Urine Yellow; Glucose Urine UA Negative (Negative); Leukocyte Esterase Urine Trace (Negative); Nitrite Urine Negative (Negative); PH 6.5 (5.0-9.0); UMIC TRIGGER UACC YES; Urine Blood Negative (Negative); Urine Ketones Negative (Negative); Urine Protein Negative (Neg-Trace)
[2023-10-22 11:10] LABS: Bacteria Urine 4+ (None Seen); Hyaline Casts Urine 0-2 /LPF (0-2); RBC Urine 0-2 /HPF (0-2); Squamous Epithelial Cell Urine 0-2 /HPF (0-2); WBC Urine 0-5 /HPF (0-5)
== END 2023-10-22 10:43 | disposition home or self-care (01) ==
LOC: HO.LNP 10:42
PROVIDERS: Visit Provider Internal Medicine
DX: R30.0 Dysuria (principal)
CPT/HCPCS: 81001

== ENCOUNTER 2023-11-07 09:06 | Outpatient (REF) | payer OTHER, SELFPAY ==
--- NOTE | ~2023-11-07 | XR_ITS ---
EXAMINATION: XR HUMERUS, LEFT CLINICAL INFORMATION: Left upper arm pain COMPARISON: None available. TECHNIQUE: AP and lateral views of the left humerus. FINDINGS: Postsurgical changes related to rotator cuff repair with surgical anchors in the humeral head. Degenerative changes of the glenohumeral joints. No definite fracture or dislocation. XR/XR humerus LT IMPRESSION: Postsurgical changes related to rotator cuff repair. No definite fracture or dislocation.
== END 2023-11-07 09:07 | disposition home or self-care (01) ==
LOC: HO.XRAY 09:06
PROVIDERS: PCP Internal Medicine; Visit Provider Internal Medicine
DX: M79.622 Pain in left upper arm (principal); Z91.81 History of falling
CPT/HCPCS: 73060

== ENCOUNTER 2023-11-10 12:58 | Outpatient (AMB) | payer OTHER, SELFPAY ==
--- NOTE | 2023-11-10 13:26 | MHC.OFFWIV ---
Intake Vital Signs 11/10/23 13:30 Height 5 ft 6 in Weight 213 lb BMI 34.4 BP 110/70 Blood Pressure Location Lt brachial Position Sitting Pulse 89 Temp 97.6 F Temp Source Temporal Artery Scan Pulse Oximetry (%) 98 Oxygen Delivery Method Room Air Intake Visit Reasons: EP fell lft shoulder pain Intake Note: pt is here today for fell lft shoulder started friday Patient Tobacco Use Status: Never used Tobacco Allergies codeine [Tylenol-Codeine #3] Allergy (Intermediate, Verified 11/10/23 13:33) Rash morphine Allergy (Intermediate, Verified 11/10/23 13:33) rash and itching nalbuphine [From Nubain] Allergy (Intermediate, Verified 11/10/23 13:33) Rash oxycodone [Percocet] Allergy (Intermediate, Verified 11/10/23 13:33) Rash propoxyphene [From Darvocet-N 100] Allergy (Intermediate, Verified 11/10/23 13:33) Rash tramadol [Ultram] Allergy (Intermediate, Verified 11/10/23 13:33) Rash ibuprofen [From Motrin] Allergy (Mild, Verified 11/10/23 13:33) RASH montelukast [Singulair] Allergy (Unknown, Verified 11/10/23 13:33) Unknown Do you need a note to return to daycare/school/sports/work: No HPI HPI Comments History of Present Illness Details Patient presents to the walk-in today for sick visit Complaining of pain to the left upper arm after fall on Friday States she fell out of bed and hit her left upper arm Now pain with range of motion and palpation Patient had humerus x-ray on Friday after she had contacted her primary care doctor about similar pain after fall She states the x-ray was performed on Friday and then she fell again on Friday. States the pain is now worse and would like a repeat x-ray [facility] Medical History Folliculitis Pure hypercholesterolemia Allergic rhinitis Insomnia Multiple joint pain GERD without esophagitis Vitamin D deficiency Lumbar spondylosis Obesity (BMI 30-39.9) Migraine Primary osteoarthritis of both knees Urinary incontinence Rotator cuff tear, left Depression Asthma Fibromyalgia Non-toxic multinodular goiter Anxiety Surgical History Status post rotator cuff surgery S/P rotator cuff repair Status post right rotator cuff repair (~07/26/18) History of hysterectomy History of cholecystectomy History of laminectomy (~2009) Family History Father Diabetes Mother Medical history unknown Social History Household Members: None Housing: Apartment Do you presently have visiting nurse or other home services: No Alcohol intake: former Patient Tobacco Use Status: Never used Tobacco e-Cigarette/Vaping Use: Never Used Second Hand Smoke Exposure: No service: No Current occupational status: disabled Cognitive needs: Yes (cane) Hearing needs: No Vision needs: Yes Review of Systems Const All systems reviewed & are unremarkable except as noted in HPI and below Physical Exam Vital Signs: Last Vital Signs Temp 97.6 F 11/10/23 13:30 Pulse 89 11/10/23 13:30 BP 110/70 11/10/23 13:30 Pulse Ox 98 11/10/23 13:30 Oxygen Delivery Method Room Air 11/10/23 13:30 BMI result Body Mass Index 34.4 General: awake, alert, oriented. Answers questions appropriately. Fully engaged in examination. Skin: warm, dry, intact HEENT: Normocephalic. Hearing intact. Cardiac: External chest normal in appearance. Respiratory: No cough, audible wheezing or stridor. Abdomen: without gross distension. MS: No obvious swelling or deformities. No bruising noted. Tenderness to palpation left upper arm. Limited range of motion secondary to pain. Decreased cross-body reach, pain with overhead reach, unable to reach behind her back. Neurological: Oriented to person, place, time and situation. Thought process intact. Psychiatric: Appropriate mood and affect. Good judgment and insight. Results Reviewed Results Reviewed: X-ray left humerus ordered and independently reviewed: No fracture or dislocation. XR left humerus from 11/07/23 reviewed: no fracture Assessment & Plan Assessment & Plan (1) Left upper arm pain: Code(s): M79.622 - Pain in left upper arm Plan Left upper arm pain status post fall: X-ray left humerus ordered independently reviewed: No fracture or dislocation Reviewed x-ray from 11/07/2023: No fracture Continue with duloxetine and Lyrica as prescribed by PCP Lidocaine 5% topical patches. On for 12 hours off for 12 hours Referral placed for Orthopedics Follow up with PCP or return to walk-in for any new or worsening symptoms Orders: Orders XR humerus LT Today M79.622 - Pain in left upper arm Referrals Orthopedics Referral M79.622 - Pain in left upper arm Medications: New lidocaine 5% leave on most painful area for up to 12 hrs 1 patch topical DAILY 30 ea 0RF Coding Level of Care Code Est Pt Level 4 (94197) Diagnoses Left upper arm pain M79.622
[2023-11-10 13:30] VITALS: BP 110/70; PULSE 89; TEMP 36.4; O2SAT 98; BMI 34.4
== END 2023-11-10 14:31 | disposition home or self-care (01) ==
PROVIDERS: PCP Internal Medicine; Visit Provider Registered Nurse Emergency
DX: M79.622 Pain in left upper arm (principal)
CPT/HCPCS: 99214

== ENCOUNTER 2023-11-10 13:52 | Outpatient (REF) | payer OTHER, SELFPAY ==
--- NOTE | ~2023-11-10 | XR_ITS ---
EXAMINATION: XR HUMERUS, LEFT CLINICAL INFORMATION: Pain post fall COMPARISON: None available. TECHNIQUE: AP and lateral views of the left humerus. FINDINGS: Postsurgical changes with 3 surgical tacks or anchors projecting over the left humeral head. No fracture or dislocation. Mild arthritis at the glenohumeral and acromioclavicular joints. Normal-appearing elbow joint. Normal soft tissues. XR/XR humerus LT IMPRESSION: No fracture or dislocation. Postsurgical and degenerative changes of the shoulder.
== END 2023-11-10 13:53 | disposition home or self-care (01) ==
LOC: HO.HMGCX 13:52
PROVIDERS: PCP Internal Medicine; Visit Provider Registered Nurse Emergency
DX: M79.622 Pain in left upper arm (principal)
CPT/HCPCS: 73060

== ENCOUNTER 2023-11-17 12:26 | Outpatient (AMB) | payer OTHER, SELFPAY ==
[2023-11-17 12:35] VITALS: BP 100/90; BMI 34.1
--- NOTE | 2023-11-17 12:35 | MHC.PC.OV ---
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: No Home Appliances Mechanic: Not Required per policy Accompanied by: Self / Same As Patient Allergies codeine [Tylenol-Codeine #3] Allergy (Intermediate, Verified 11/17/23 12:35) Rash morphine Allergy (Intermediate, Verified 11/17/23 12:35) rash and itching nalbuphine [From Nubain] Allergy (Intermediate, Verified 11/17/23 12:35) Rash oxycodone [Percocet] Allergy (Intermediate, Verified 11/17/23 12:35) Rash propoxyphene [From Darvocet-N 100] Allergy (Intermediate, Verified 11/17/23 12:35) Rash tramadol [Ultram] Allergy (Intermediate, Verified 11/17/23 12:35) Rash ibuprofen [From Motrin] Allergy (Mild, Verified 11/17/23 12:35) RASH montelukast [Singulair] Allergy (Unknown, Verified 11/17/23 12:35) Unknown Tobacco use date assessed: 08/19/23 Fall risk assessment: 1 Fall in past year Last assessed Fall Risk: 11/17/23 Dental Screening Dental Screen Date: 08/19/23 HPI 3mth f/u/due for mammo HPI Details Patient comes in today for her follow up visit States that she is still experiencing increased pain over her left lower back that often radiates down the back of her left leg Is also experiencing diffuse pain all over, which she states has been going on for a while now and that none of her current medications are helping much She also reported fell again a few times lately but fortunately, none of these resulted in any new injuries or significantly aggravated her current issues She denies any headaches or dizziness Denies any chest pains, no shortness of breath No nausea/ vomiting, no abdominal pain No change in bowel habits noted Adds that she has been experiencing increased pain over both of her heel area and over the Achilles tendon bilaterally for a while now - states that she was seen at the walk-in clinic recently and was advised that she likely has Achilles tendinitis and to speak to her PCP about referring her to podiatry or orthopedics for these She has her follow up labs done a few weeks ago - to discuss her results Adds that she also needs a new replacement Rx for the rubber handle/oral and maxillofacial surgeon on her cane as the one she has now is ripped up and coming off the handle [facility] Medical History Folliculitis Pure hypercholesterolemia Allergic rhinitis Insomnia Multiple joint pain GERD without esophagitis Vitamin D deficiency Lumbar spondylosis Obesity (BMI 30-39.9) Migraine Primary osteoarthritis of both knees Urinary incontinence Rotator cuff tear, left Depression Asthma Fibromyalgia Non-toxic multinodular goiter Anxiety Surgical History Status post rotator cuff surgery S/P rotator cuff repair Status post right rotator cuff repair (~07/26/18) History of hysterectomy History of cholecystectomy History of laminectomy (~2009) Family History Father Diabetes Mother Medical history unknown Social History Household Members: None Housing: Apartment Do you presently have visiting nurse or other home services: No Alcohol intake: former Patient Tobacco Use Status: Never used Tobacco e-Cigarette/Vaping Use: Never Used Second Hand Smoke Exposure: No service: No Current occupational status: disabled Cognitive needs: Yes (cane) Hearing needs: No Vision needs: Yes (glasses) Questionnaire Thrive Questionnaire Date Thrive assessed: 08/19/23 FLACO-7 AMB Questionnaire FLACO-7 Date FLACO - 7 assessed: 08/19/23 Source: Developed by Drs. Lang Pacheco, Kelsey Lund, Filemon Grewal and colleagues, with an educational juvenal from [employer] Review of Systems Const Reports body aches (diffuse), Denies chills, Reports fatigue, Denies fever(s) and Denies headache(s) ENT Denies dysphagia, Denies dizziness, Denies otalgia, Denies headache(s), Reports neck pain (increasing lately), Denies odynophagia and Denies sore throat Card Denies rapid heart rate, Denies irregular heart rhythm, Denies palpitations and Denies dyspnea Resp Denies chest congestion, Denies cough, Denies dyspnea and Denies wheezing GI Denies abdominal pain, Denies constipation, Denies dysphagia, Denies heartburn, Denies diarrhea, Denies nausea, Denies odynophagia and Denies vomiting Denies hematuria, Denies urinary frequency, Denies dysuria, Denies urinary incontinence and Denies urinary urgency Musc Details: recurrent pain over the left lower back that often radiates down the back of her left lower extremity Reports back pain (over the lower back (chronic) but has increasing pain on left side lately), Reports arthralgias (left shoulder - S/P surgery in 03/2021), Reports neck pain (increasing lately) and Reports stiffness (left shoulder) Skin/Breast Denies rash Neuro Denies dizziness, Denies headache(s) and Denies paresthesias Psych Denies anxiety and Denies depression Endo Reports fatigue and Denies palpitations Corona/Lymph Denies easy bruising Aller/Immun Denies wheezing Physical exam (Primary Care) Vital Signs: Last Vital Signs BP 100/90 H 11/17/23 12:35 Oxygen Delivery Method Room Air 11/17/23 12:35 BMI result Body Mass Index 34.1 Tobacco/Smoking Status: Tobacco use Status Tobacco use date assessed 08/19/23 11/17/23 12:36 Patient Tobacco Use Status Never used Tobacco 11/17/23 12:36 Tobacco use type 10/14/23 09:09 e-Cigarette/Vaping Use Never Used 11/17/23 12:36 Thrive Assessment: Date of Thrive Assessment Date Thrive assessed 08/19/23 11/17/23 12:36 Const General: no acute distress and alert HENMT Ears: TM's normal bilaterally and EAC's normal Throat: Yes posterior oropharynx normal and Yes tonsils normal (no TP congestion) Neck Neck: Yes no lymphadenopathy and Yes supple Thyroid: Thyroid normal Resp Auscultation: clear to auscultation bilaterally, no rales and no wheezes Cardio Rate: regular rate Rhythm: regular rhythm Heart sounds: no murmurs GI Palpation (GI): Soft to palpation and nontender Auscultation: normal bowel sounds General: Yes no CVA tenderness Back/Spine/Pelvis Back: no CVA tenderness Cervical Spine: cervical muscular tenderness and Cervical spine tenderness Thoracic/Lumbar Spine: paraspinal muscle tenderness bilaterally in the upper thoracic, in the mid lumbar and in the lower lumbar and on the left greater than right and lumbar spinal tenderness Skin Rashes: no rashes Extrem General: Yes no clubbing, cyanosis or edema Left upper extremity: shoulder/upper arm Details: tenderness Location: of the A-C joint and normal ROM; no swelling Results Reviewed Results Reviewed: Laboratory Tests 10/20/23 10/22/23 09:25 08:40 WBC 5.8 Hgb 14.0 Hct 43.3 Plt Count 216 Sodium 140 Potassium 4.2 Creatinine 0.78 Estimated GFR > 60 Fasting Glucose 121 H Calcium 9.4 AST 18 ALT 17 Triglycerides 105 Cholesterol 195 LDL Cholesterol, Calc 111 H HDL Cholesterol 63 Vitamin B12 > 2000 H 25-OH Vitamin D Total 32.9 TSH 6.16 H Free T4 0.87 Ur Specific Reading 1.010 Urine Protein Negative Urine Glucose (UA) Negative Urine Blood Negative Urine Nitrite Negative Ur Leukocyte Esterase Trace H Assessment and Plan Assessment & Plan (1) Pure hypercholesterolemia: Code(s): E78.00 - Pure hypercholesterolemia, unspecified Plan: Results of her labs done a few weeks ago reviewed and discussed with patient Reinforced low cholesterol diet Will recheck her labs and fasting lipids in 4 months for follow up (2) Asthma: Code(s): J45.909 - Unspecified asthma, uncomplicated Qualifiers: Asthma severity: mild Asthma persistence: persistent Asthma complication type: uncomplicated Qualified Code(s): J45.30 - Mild persistent asthma, uncomplicated Plan: Stable Continue Flovent HFA 110 mcg 1 inhalation BID and Albuterol HFA 2 puffs 4 times a day as needed; also uses Albuterol nebulization as needed (3) Migraine: Code(s): G43.909 - Migraine, unspecified, not intractable, without status migrainosus Qualifiers: Migraine type: unspecified Status migrainosus presence: without status migrainosus Intractability: not intractable Qualified Code(s): G43.909 - Migraine, unspecified, not intractable, without status migrainosus Plan: Stable on prophylactic Tx Continue Topiramate 25 mg BID and Nortriptyline 25 mg Q HS Reinforced again avoidance of all potential migraine triggers (4) Lumbar spondylosis: Code(s): M47.816 - Spondylosis without myelopathy or radiculopathy, lumbar region Plan: Reinforced activity and weight-lifting restrictions Continue Methocarbamol 750 mg TID PRN and Duloxetine 30 mg QD MRI of the lumbar spine last done in 05/2021 revealed s/p instrumented fusion at the L2-L3 level with laminectomy changes, with no significant canal or foraminal compromise, stable in appearance. Stable discogenic degenerative changes at multiple levels, with stable multilevel bilateral facet arthropathy. Multilevel disc bulging and foraminal disc protrusions are again noted, similar to the previous exam with no significant central spinal canal stenosis. No significant neural foraminal stenosis. No abnormal enhancement within the limitations of the study. Repeat lumbar spine x-rays done at [facility] last year showed stable post-op changes with no acute findings Follow up with Pain Management as scheduled - is going to have a trial of ROSARIO soon She was referred to physical therapy at her last visit here a few months ago because of increased pain, especially over left lower back, with radiation of pain down the left leg but it does not look like she was seen by PT recently (5) Fibromyalgia: Code(s): M79.7 - Fibromyalgia Plan: Encouraged again on regular exercise and physical activity to help manage her fibromyalgia symptoms better Continue Pregabalin 150 mg TID and Nortriptyline 25 mg QHS; will increase her Duloxetine to 30 mg BID Was seen at [facility] by Dr. Darnell many years ago and she has not been back in a few years - was referred back, per request, last year but she was not seen nor scheduled for appointment She was referred again to [facility] for further evaluation and management - was seen by Dr. Tavarez last month and recommended she continue on her current Rx with no further recommendations; was also advised to just follow up with her PCP (6) Rotator cuff tear arthropathy of left shoulder: Comment: S/P left rotator cuff surgery in [place] [address] Velázquez Code(s): M75.102 - Unspecified rotator cuff tear or rupture of left shoulder, not specified as traumatic; M12.812 - Other specific arthropathies, not elsewhere classified, left shoulder Plan: Was seen previously by orthopedics and was recommended to continue gentle physical therapy of her left shoulder but patient states that this did not really help much Follow up with orthopedics as scheduled (7) Primary osteoarthritis of both knees: Code(s): M17.0 - Bilateral primary osteoarthritis of knee Plan: Follow up with orthopedics as scheduled Has knee braces that she wears as needed for added stability to her knees and to help reduce her knee pain (8) Achilles tendinitis of both lower extremities: Code(s): M76.61 - Achilles tendinitis, right leg; M76.62 - Achilles tendinitis, left leg Plan: Per request, will refer her to orthopedics for further evaluation and management of this issue (9) Allergic rhinitis: Code(s): J30.9 - Allergic rhinitis, unspecified Qualifiers: Allergic rhinitis trigger: unspecified Allergic rhinitis seasonality: unspecified Qualified Code(s): J30.9 - Allergic rhinitis, unspecified Plan: Continue Loratadine 10 mg QD PRN (10) GERD without esophagitis: Code(s): K21.9 - Gastro-esophageal reflux disease without esophagitis Plan: Dietary restrictions reinforced Continue Pantoprazole 40 mg QD (11) Vitamin D deficiency: Code(s): E55.9 - Vitamin D deficiency, unspecified Plan: Continue Vitamin D2 13198 units once a week (12) Vitamin B12 deficiency: Code(s): E53.8 - Deficiency of other specified B group vitamins Plan: Continue Vitamin B12 1000 mcg but she is advised to back this down to twice a week dosing instead of daily as her serum B12 level was very high on her recent labs Will recheck her Vitamin B12 level in 4 months for follow up (13) Insomnia: Comment: was on Trazodone 150 mg in the past but has not refilled Rx since 2016 Code(s): G47.00 - Insomnia, unspecified Qualifiers: Insomnia type: unspecified Qualified Code(s): G47.00 - Insomnia, unspecified Plan: Sleep hygiene reinforced Continue Trazodone 100 mg Q HS (14) Anxiety: Code(s): F41.9 - Anxiety disorder, unspecified Plan: Continue Lorazepam 0.5 mg TID PRN, Hydroxyzine 25 mg TID PRN and Buspirone 10 mg BID Follow up with psychiatry as scheduled (15) Depression: Code(s): F32.9 - Major depressive disorder, single episode, unspecified Qualifiers: Depression Type: unspecified Qualified Code(s): F32.9 - Major depressive disorder, single episode, unspecified Plan: Continue Budeprion SR 100 mg 2 tablets BID Follow up with psychiatry as scheduled (16) Obesity (BMI 30-39.9): Code(s): E66.9 - Obesity, unspecified Plan: Reinforced diet; weight loss and exercise are unrealistic given patient's multiple physical issues and limited activity tolerance Plan Follow up in 4 months Orders: Orders Complete Blood Count Auto Diff 4 Months D64.9 - Anemia, unspecified UA CC w/rflx Micro + Cult 4 Months R30.0 - Dysuria Thyroid Stimulating Hormone 4 Months R79.89 - Other specified abnormal findings of blood chemistry Hemoglobin A1c 4 Months R73.01 - Impaired fasting glucose Lipid Panel 4 Months E78.00 - Pure hypercholesterolemia, unspecified Comprehensive [place]. Panel Fast 4 Months E78.00 - Pure hypercholesterolemia, unspecified Vitamin B12 and Folate 4 Months E53.8 - Deficiency of other specified B group vitamins Vitamin D 25-OH Total 4 Months E55.9 - Vitamin D deficiency, unspecified Free T4 (Free Thyroxine) 4 Months R79.89 - Other specified abnormal findings of blood chemistry Triiodothyronine T3 Total 4 Months R79.89 - Other specified abnormal findings of blood chemistry Referrals Orthopedics Referral M76.61 - Achilles tendinitis, right leg, M76.62 - Achilles tendinitis, left leg Medications: New [RUBBER HANDLE/SALES SUPPORT CONSULTANT for 4-pronged aluminum cane] As directed 1 ea 0RF M17.0 - Bilateral primary osteoarthritis of knee, M47.816 - Spondylosis without myelopathy or radiculopathy, lumbar region Coding Level of Care Code Est Pt Level 4 (01124) Diagnoses Pure hypercholesterolemia E78.00 Mild persistent asthma without complication J45.30 Asthma severity: mild Asthma persistence: persistent Asthma complication type: uncomplicated Migraine without status migrainosus, not intractable, unspecified migraine type G43.909 Migraine type: unspecified Status migrainosus presence: without status migrainosus Intractability: not intractable Lumbar spondylosis M47.816 Fibromyalgia M79.7 Rotator cuff tear arthropathy of left shoulder M75.102; M12.812 Primary osteoarthritis of both knees M17.0 Achilles tendinitis of both lower extremities M76.61; M76.62 Allergic rhinitis, unspecified seasonality, unspecified trigger J30.9 Allergic rhinitis trigger: unspecified Allergic rhinitis seasonality: unspecified GERD without esophagitis K21.9 Vitamin D deficiency E55.9 Vitamin B12 deficiency E53.8 Insomnia, unspecified type G47.00 Insomnia type: unspecified Anxiety F41.9 Depression, unspecified depression type F32.9 Depression Type: unspecified Obesity (BMI 30-39.9) E66.9
== END 2023-11-17 14:27 | disposition home or self-care (01) ==
PROVIDERS: PCP Internal Medicine; Visit Provider Internal Medicine
DX: E78.00 Pure hypercholesterolemia, unspecified (principal); J45.30 Mild persistent asthma, uncomplicated; G43.909 Migraine, unspecified, not intractable, without status migrainosus; M47.816 Spondylosis without myelopathy or radiculopathy, lumbar region; M79.7 Fibromyalgia; M75.102 Unspecified rotator cuff tear or rupture of left shoulder, not specified as traumatic; M12.812 Other specific arthropathies, not elsewhere classified, left shoulder; M17.0 Bilateral primary osteoarthritis of knee; M76.61 Achilles tendinitis, right leg; M76.62 Achilles tendinitis, left leg; K21.9 Gastro-esophageal reflux disease without esophagitis; E55.9 Vitamin D deficiency, unspecified
CPT/HCPCS: 99214

== ENCOUNTER 2023-12-12 07:41 | Outpatient (REF) | payer OTHER, SELFPAY ==
--- NOTE | ~2023-12-12 | XR_ITS ---
EXAMINATION: XR SHOULDER, LEFT CLINICAL INFORMATION: Pain in left shoulder COMPARISON: 10/31/2002 TECHNIQUE: AP external rotation, Grashey, scapular Y, and axillary views of the left shoulder. FINDINGS: The bones are intact. No fracture or dislocation. Surgical anchors are seen in the humeral head. There is mild elevation of the humeral head with respect to the glenoid consistent with chronic rotator cuff disease. There is mild degenerative change of the acromioclavicular joint. There is mild narrowing of the glenohumeral joint. No abnormal soft tissue calcifications. XR/XR shoulder LT min 2V IMPRESSION: 1. Findings consistent with chronic rotator cuff disease. 2. Mild degenerative change of the acromioclavicular and glenohumeral joints.
== END 2023-12-12 07:42 | disposition home or self-care (01) ==
LOC: HO.HOSX 07:41
PROVIDERS: Visit Provider Physician Assistant
DX: S46.002A Unspecified injury of muscle(s) and tendon(s) of the rotator cuff of left shoulder, initial encounter (principal); W06.XXXA Fall from bed, initial encounter; Y93.9 Activity, unspecified; Y92.9 Unspecified place or not applicable; Y99.9 Unspecified external cause status; Z98.890 Other specified postprocedural states
CPT/HCPCS: 73030; 99212

== ENCOUNTER 2023-12-12 08:51 | Outpatient (AMB) | payer OTHER, SELFPAY ==
--- NOTE | 2023-12-12 08:52 | A.OFFVIS_ITS ---
Intake Visit Reasons: ov- S/P RTC repair, DOS: 07/25/20 Intake Note: Sabrina is a 67 year old female who presents to the office today for s/p RTC repair done on 07/25/20. Pt states she has fallen from her bed multiple times. Her most recent fall was a few weeks ago. She states she has been having pain due to her falling on her left shoulder multiple times. She states her shoulder is always in pain and states she isnt able to lift her arm up above her head. Allergies codeine [Tylenol-Codeine #3] Allergy (Intermediate, Verified 12/12/23 08:52) Rash morphine Allergy (Intermediate, Verified 12/12/23 08:52) rash and itching nalbuphine [From Nubain] Allergy (Intermediate, Verified 12/12/23 08:52) Rash oxycodone [Percocet] Allergy (Intermediate, Verified 12/12/23 08:52) Rash propoxyphene [From Darvocet-N 100] Allergy (Intermediate, Verified 12/12/23 08:52) Rash tramadol [Ultram] Allergy (Intermediate, Verified 12/12/23 08:52) Rash ibuprofen [From Motrin] Allergy (Mild, Verified 12/12/23 08:52) RASH montelukast [Singulair] Allergy (Unknown, Verified 12/12/23 08:52) Unknown Medication List - Last Reconciled 12/12/23 by Sajan Cook PA-C [ADULT PULL-UPS -- MEDIUM SIZE As directed] [BED PADS As directed] bupropion HCl SR 200 mg (2 x 100 mg) PO BID buspirone 10 mg PO BID 30 days celecoxib (Celebrex) 200 mg PO BID 30 days cholecalciferol (vitamin D3) 50 mcg PO DAILY 90 days cyanocobalamin (vitamin B-12) 1,000 mcg PO DAILY 90 days divalproex 500 mg PO BID duloxetine 30 mg PO BID 30 days ergocalciferol (vitamin D2) (Vitamin D2) 1,250 mcg PO QWEEK [Heating Pad As directed] heating pads As directed [INCONTINENCE PADS Use as directed] [LEFT KNEE BRACE As directed] lidocaine 5% 1 patch topical DAILY loratadine 10 mg PO DAILY PRN 30 days meclizine 25 mg PO DAILY PRN miscellaneous medical supply 1 ea miscellaneous DAILY nortriptyline 25 mg PO BID 30 days pantoprazole 40 mg PO DAILY pregabalin 150 mg PO TID 30 days [QUAD CANE As directed] [QUAD CANE (lightweight) As directed] [RAISED TOILET SEAT As directed] [RIGHT KNEE BRACE As directed] [RIGHT THUMB SPLINT As directed] [RUBBER HANDLE/SOLID TIRE FINISHER for 4-pronged aluminum cane As directed] [RUBBER TIPS FOR QUAD CANE As directed] [WRIST BRACE (right wrist) - MEDIUM As directed] HPI HPI ov- S/P RTC repair, DOS: 07/25/20: Details: 67-year-old female who returns to the office today for a follow-up of RTC repair, 07/25/20. She reports she has fallen from bed multiple times with the most recent being a few weeks ago. She states she has constant pain due to falling on her left shoulder multiple times that makes her difficult to lift her arm overhead. [facility] Medical History Folliculitis Pure hypercholesterolemia Allergic rhinitis Insomnia Multiple joint pain GERD without esophagitis Vitamin D deficiency Lumbar spondylosis Obesity (BMI 30-39.9) Migraine Primary osteoarthritis of both knees Urinary incontinence Rotator cuff tear, left Depression Asthma Fibromyalgia Non-toxic multinodular goiter Anxiety Surgical History Status post rotator cuff surgery S/P rotator cuff repair Status post right rotator cuff repair (~07/26/18) History of hysterectomy History of cholecystectomy History of laminectomy (~2009) Family History Father Diabetes Mother Medical history unknown Social History Household Members: None Housing: Apartment Do you presently have visiting nurse or other home services: No Alcohol intake: former Patient Tobacco Use Status: Never used Tobacco e-Cigarette/Vaping Use: Never Used Second Hand Smoke Exposure: No service: No Current occupational status: disabled Cognitive needs: Yes (cane) Hearing needs: No Vision needs: Yes (glasses) Review of Systems Const All systems reviewed & are unremarkable except as noted in HPI and below Physical Exam Const General: cooperative and no acute distress Orientation/consciousness: patient oriented x3 Resp Effort & Inspection: normal respiratory effort and able to speak in complete sentences Cardio Peripheral pulses: Peripheral pulses 2+ throughout Neuro General: patient oriented x3 Extrem Other: Left shoulder: Normal to inspection. Surgical scars well healed.She has significant weakness performing empty can. She has a negative belly press and lift off. Results Reviewed Results Reviewed: Xrays were obtained in the office today and personally reviewed by me of the left shoulder show intact anchors Assessment & Plan Assessment & Plan (1) S/P left rotator cuff repair: Code(s): Z98.890 - Other specified postprocedural states Category: Surgical Plan She was given a prescription of Celebrex to take twice a day to help with her discomfort. I recommend an MRI of the left shoulder to further evaluate the integrity of RTC given the limited function she has since her recent fall. I also demonstrated some exercises in the office today and explained that she needs to get the motion and pain under control prior to any treatment or plan. She will see us back as needed. Orders: Orders MR shoulder LT wo con Today S46.009A - Unspecified injury of muscle(s) and tendon(s) of the rotator cuff of unspecified shoulder, initial encounter Medications: New celecoxib (Celebrex) 200 mg PO BID 60 caps 3RF 30 days Patient Instructions: Scribed for Sajan Cook PA-C, by Maxwell Ruiz adjunct faculty for medical terminology, on 12/12/2023 at 9:30 AM EST.? I, Sajan Cook PA-C, have personally reviewed and agree with the information entered by the scribe. Coding Level of Care Code Est Pt Level 3 (33068) Diagnoses S/P left rotator cuff repair Z98.890
== END 2023-12-12 10:01 | disposition home or self-care (01) ==
PROVIDERS: PCP Internal Medicine; Visit Provider Physician Assistant
DX: M25.512 Pain in left shoulder (principal)
CPT/HCPCS: 99214

== ENCOUNTER 2024-03-15 12:46 | Outpatient (AMB) | payer OTHER, SELFPAY ==
[2024-03-15 12:54] VITALS: BP 118/80; PULSE 97; O2SAT 94; BMI 35.5
--- NOTE | 2024-03-15 12:54 | A.OFFPC_ITS ---
Vital Signs 03/15/24 12:54 Height 5 ft 6 in Weight 220 lb BMI 35.5 BP 118/80 Blood Pressure Location Lt brachial Position Sitting Pulse 97 Pulse Source Pulse Oximeter Pulse Oximetry (%) 94 Oxygen Delivery Method Room Air Intake Visit Reasons: arthralgia, fibro, dyslipidemia, migr, elev TSH Laser Operator Required: No Accompanied by: Self / Same As Patient Allergies codeine [Tylenol-Codeine #3] Allergy (Intermediate, Verified 03/15/24 13:51) Rash morphine Allergy (Intermediate, Verified 03/15/24 13:51) rash and itching nalbuphine [From Nubain] Allergy (Intermediate, Verified 03/15/24 13:51) Rash oxycodone [Percocet] Allergy (Intermediate, Verified 03/15/24 13:51) Rash propoxyphene [From Darvocet-N 100] Allergy (Intermediate, Verified 03/15/24 13:51) Rash tramadol [Ultram] Allergy (Intermediate, Verified 03/15/24 13:51) Rash ibuprofen [From Motrin] Allergy (Mild, Verified 03/15/24 13:51) RASH montelukast [Singulair] Allergy (Unknown, Verified 03/15/24 13:51) Unknown Medication List - Last Reconciled 03/15/24 by Henrique Soler MD [ADULT PULL-UPS -- MEDIUM SIZE As directed] [BED PADS As directed] bupropion HCl SR 200 mg (2 x 100 mg) PO BID buspirone 10 mg PO BID 30 days celecoxib (Celebrex) 200 mg PO BID 30 days cholecalciferol (vitamin D3) 50 mcg PO DAILY 90 days cyanocobalamin (vitamin B-12) 1,000 mcg PO DAILY 90 days divalproex 500 mg PO BID 30 days duloxetine 30 mg PO BID 30 days ergocalciferol (vitamin D2) (Vitamin D2) 1,250 mcg PO QWEEK [Heating Pad As directed] heating pads As directed [INCONTINENCE PADS Use as directed] [LEFT KNEE BRACE As directed] lidocaine 5% 1 patch topical DAILY loratadine 10 mg PO DAILY PRN 30 days meclizine 25 mg PO DAILY PRN miscellaneous medical supply 1 ea miscellaneous DAILY nortriptyline 25 mg PO BID 30 days pantoprazole 40 mg PO DAILY pregabalin 150 mg PO TID 30 days [QUAD CANE As directed] [QUAD CANE (lightweight) As directed] [RAISED TOILET SEAT As directed] [RIGHT KNEE BRACE As directed] [RIGHT THUMB SPLINT As directed] [RUBBER HANDLE/MEDICARE INTERVIEWER for 4-pronged aluminum cane As directed] [RUBBER TIPS FOR QUAD CANE As directed] [WRIST BRACE (right wrist) - MEDIUM As directed] Tobacco use date assessed: 03/15/24 Fall risk assessment: 2 + Falls in past year Last assessed Fall Risk: 03/15/24 Dental Screening Dental Screen Date: 03/15/24 Did you have a dental visit in the last 12 months?: Yes Did you have a dental problem in the last 6 months where you did not have access to dental care?: No Was dental information given to patient?: Patient has dentist HPI arthralgia, fibro, dyslipidemia, migr, elev TSH HPI Details Patient comes in today for her follow up visit States that she is still experiencing increased pain over her left shoulder, which she feels have gotten worse with her multiple falls over the past few months She was sent for MRI of the shoulder by orthopedics and she had this done over at [facility] in [place] a couple of weeks ago States that she does not know what her MRI shows but she has a follow up appointment with orthopedics next week for follow up on this States that she also still has recurrent left lower back that often radiates down the back of her left leg and continues to experience diffuse pain all over (chronic) She denies any headaches or dizziness Denies any chest pains, no increased shortness of breath No nausea/ vomiting, no abdominal pain No change in bowel habits noted Needs her Loratadine Rx refilled She was not able to get her follow up labs done prior to her appt today [facility] Medical History Folliculitis Pure hypercholesterolemia Allergic rhinitis Insomnia Multiple joint pain GERD without esophagitis Vitamin D deficiency Lumbar spondylosis Obesity (BMI 30-39.9) Migraine Primary osteoarthritis of both knees Urinary incontinence Rotator cuff tear, left Depression Asthma Fibromyalgia Non-toxic multinodular goiter Anxiety Surgical History Status post rotator cuff surgery S/P rotator cuff repair Status post right rotator cuff repair (~07/26/18) History of hysterectomy History of cholecystectomy History of laminectomy (~2009) Family History Father Diabetes Mother Medical history unknown Social History Household Members: None Housing: Apartment Do you presently have visiting nurse or other home services: No Alcohol intake: former Patient Tobacco Use Status: Never used Tobacco e-Cigarette/Vaping Use: Never Used Second Hand Smoke Exposure: No service: No Current occupational status: disabled Cognitive needs: Yes (cane) Hearing needs: No Vision needs: Yes (glasses) Questionnaire PHQ-9 Over the last 2 weeks, how often have you been bothered by any of the following problems? 1. Little interest or pleasure in doing things: not at all 2. Feeling down, depressed, or hopeless: not at all 3. Trouble falling or staying asleep, or sleeping too much: not at all 4. Feeling tired or having little energy: not at all 5. Poor appetite or overeating: not at all 6. Feeling bad about yourself - or that you are a failure or have let yourself or your family down: not at all 7. Trouble concentrating on things, such as reading the newspaper or watching television: not at all 8. Moving or speaking so slowly that other people could have noticed. Or the opposite - being so fidgety or restless that you have been moving around a lot m ore than usual: not at all 9. Thoughts that you would be better off or of hurting yourself in some way: not at all Total score: 0 Depression Screening Interpretation: Negative Depression Screening Done: Yes 89077 - PHQ-9 Billing: Yes Source: Developed by Drs. Lang Pacheco, Kelsey Lund, Filemon Grewal and colleagues, with an educational juvenal from [employer]. Thrive Questionnaire Date Thrive assessed: 03/15/24 I am a: Patient What is your living situation today?: I have a steady place to live Within the past 12 months, did the food you bought not last and you didn't have the money to get more?: Never true Within the past 12 months, did you worry whether your food would run out before you got money to buy more?: Never true Do you have trouble paying for medicines?: No Do you have trouble getting transportation to medical appointments?: No Do you have trouble paying your heating and electricity bill?: No Do you have trouble taking care of your child, family member or friend?: No Do you have trouble with day-to-day activities such as bathing, preparing meals, shopping, managing finances, etc.?: No Are you currently unemployed and looking for a job?: No Are you interested in more education?: No Please select the resources that you would like help with: None Currently or been in a relationship where the following occur: No concerns reported THRIVE Score: 0 AUDIT C Alcohol Use Questionnaire (AUDIT-C) 1. How often do you have a drink containing alcohol?: Never 3. How often do you have six or more drinks on one occasion?: Never Total Score: 0 Score Reviewed/Action Taken: Yes FLACO-7 AMB Questionnaire FLACO-7 Date FLACO - 7 assessed: 03/15/24 Feeling nervous, anxious, or on edge: 0 = Not at all Not being able to stop or control worryin = Not at all Worrying too much about different things: 0 = Not at all Trouble relaxin = Not at all Being so restless that it is hard to sit still: 0 = Not at all Becoming easily annoyed or irritable: 0 = Not at all Feeling afraid as if something awful might happen: 0 = Not at all Total FLACO-7 score (0-4 normal; 5-9 mild; 10-14 moderate; 15-21 severe): 0 Source: Developed by Drs. Lang Pacheco, Kelsey Lund, Filemon Grewal and colleagues, with an educational juvenal from [employer]. Review of Systems Const Reports body aches (diffuse), Denies chills, Denies difficulty sleeping, Reports fatigue, Denies fever(s) and Denies headache(s) ENT Denies dysphagia, Denies dizziness, Denies otalgia, Denies headache(s), Reports neck pain (increasing lately), Denies odynophagia and Denies sore throat Card Denies rapid heart rate, Denies irregular heart rhythm, Denies palpitations and Reports dyspnea on exertion (mild) Resp Denies chest congestion, Denies cough, Reports dyspnea on exertion (mild) and Denies wheezing GI Denies abdominal pain, Denies constipation, Denies dysphagia, Denies heartburn, Denies diarrhea, Denies nausea, Denies odynophagia and Denies vomiting Denies hematuria, Denies urinary frequency, Denies dysuria, Denies urinary incontinence and Denies urinary urgency Musc Details: recurrent pain over the left lower back that often radiates down the back of her left lower extremity Reports back pain (over the lower back (chronic) but has increasing pain on left side lately), Reports arthralgias (left shoulder - S/P surgery in 03/2021), Reports neck pain (increasing lately) and Reports stiffness (left shoulder) Skin/Breast Denies rash Neuro Denies dizziness, Denies headache(s) and Denies paresthesias Psych Denies anxiety and Denies depression Endo Reports fatigue and Denies palpitations Corona/Lymph Denies easy bruising Aller/Immun Denies wheezing Physical exam (Primary Care) Vital Signs: Last Vital Signs Pulse 97 03/15/24 12:54 BP 118/80 03/15/24 12:54 Pulse Ox 94 03/15/24 12:54 Oxygen Delivery Method Room Air 03/15/24 12:54 BMI result Body Mass Index 35.5 Tobacco/Smoking Status: Tobacco use Status Tobacco use date assessed 03/15/24 03/15/24 13:02 Patient Tobacco Use Status Never used Tobacco 03/15/24 13:02 Tobacco use type 10/14/23 09:09 e-Cigarette/Vaping Use Never Used 03/15/24 13:02 PHQ-9: PHQ-9 Score PHQ-9: Total score 0 03/15/24 13:02 Depression Screening Interpretation: Negative Thrive Assessment: Date of Thrive Assessment Date Thrive assessed 03/15/24 03/15/24 13:02 Currently or been in a relationship where the following occur: No concerns reported Const General: no acute distress and alert HENMT Ears: TM's normal bilaterally and EAC's normal Throat: Yes posterior oropharynx normal and Yes tonsils normal (no TP congestion) Neck Neck: Yes no lymphadenopathy and Yes supple Thyroid: Thyroid normal Resp Auscultation: clear to auscultation bilaterally, no rales and no wheezes Cardio Rate: regular rate Rhythm: regular rhythm Heart sounds: no murmurs GI Palpation (GI): Soft to palpation and nontender Auscultation: normal bowel sounds General: Yes no CVA tenderness Back/Spine/Pelvis Back: no CVA tenderness Cervical Spine: cervical muscular tenderness and Cervical spine tenderness Thoracic/Lumbar Spine: paraspinal muscle tenderness bilaterally in the upper thoracic, in the mid lumbar and in the lower lumbar and on the left greater than right and lumbar spinal tenderness Skin Rashes: no rashes Extrem General: Yes no clubbing, cyanosis or edema Left upper extremity: shoulder/upper arm Details: tenderness Location: of the A- C joint and normal ROM; no swelling Assessment and Plan Assessment & Plan (1) Pure hypercholesterolemia: Code(s): E78.00 - Pure hypercholesterolemia, unspecified Plan: She was not able to get her follow up labs done prior to her visit today and is encouraged to go and get them done CARI Reinforced low cholesterol diet Will recheck her labs and fasting lipids in 4 months for follow up (2) Asthma: Code(s): J45.909 - Unspecified asthma, uncomplicated Qualifiers: Asthma severity: mild Asthma persistence: persistent Asthma complication type: uncomplicated Qualified Code(s): J45.30 - Mild persistent asthma, uncomplicated Plan: Stable Continue Flovent HFA 110 mcg 1 inhalation BID and Albuterol HFA 2 puffs 4 times a day as needed; also uses Albuterol nebulization as needed (3) Migraine: Code(s): G43.909 - Migraine, unspecified, not intractable, without status migrainosus Qualifiers: Migraine type: unspecified Status migrainosus presence: without status migrainosus Intractability: not intractable Qualified Code(s): G43.909 - Migraine, unspecified, not intractable, without status migrainosus Plan: Stable on prophylactic Tx Continue Topiramate 25 mg BID and Nortriptyline 25 mg Q HS Reinforced again avoidance of all potential migraine triggers (4) Lumbar spondylosis: Code(s): M47.816 - Spondylosis without myelopathy or radiculopathy, lumbar region Plan: Reinforced activity and weight-lifting restrictions Continue Methocarbamol 750 mg TID PRN and Duloxetine 30 mg QD MRI of the lumbar spine last done in 05/2021 revealed s/p instrumented fusion at the L2-L3 level with laminectomy changes, with no significant canal or foraminal compromise, stable in appearance. Stable discogenic degenerative changes at multiple levels, with stable multilevel bilateral facet arthropathy. Multilevel disc bulging and foraminal disc protrusions are again noted, similar to the previous exam with no significant central spinal canal stenosis. No significant neural foraminal stenosis. No abnormal enhancement within the limitations of the study. Repeat lumbar spine x-rays done at [facility] last year showed stable post-op changes with no acute findings Follow up with Pain Management as scheduled - she was going to have a trial of ROSARIO soon at her last visit but we have not received any updates on this since She was referred to physical therapy at her previous visit(s) here a few months ago because of increased pain, especially over her left lower back, with radiation of pain down the left leg but it does not look like she was seen by PT as we have not received any updated correspondence on this (5) Fibromyalgia: Code(s): M79.7 - Fibromyalgia Plan: She is encouraged again on regular exercise and physical activity to help manage her fibromyalgia symptoms Continue Pregabalin 150 mg TID, Nortriptyline 25 mg QHS and Duloxetine 30 mg BID She was seen at [facility] [place] [place] [facility] by Dr. Darnell many years ago and she has not been back in a few years She was referred back to [facility] [place] [place] for further evaluation and management - was seen by Dr. Tavarez a few months ago and she was advised to continue on her current Rx with no further recommendations; was also advised to just follow up with her PCP (6) Rotator cuff tear arthropathy of left shoulder: Comment: S/P left rotator cuff surgery in September [address] Velázquez Code(s): M75.102 - Unspecified rotator cuff tear or rupture of left shoulder, not specified as traumatic; M12.812 - Other specific arthropathies, not elsewhere classified, left shoulder Plan: Was seen previously by orthopedics and was recommended to continue gentle physical therapy of her left shoulder but patient states that this did not really help much She was sent for repeat MRI of the shoulder and she reportedly had this done at [facility] about 2 to 3 weeks ago - will try to obtain a copy of her results for review Follow up with orthopedics as scheduled - she has an appointment coming up next week (7) Primary osteoarthritis of both knees: Code(s): M17.0 - Bilateral primary osteoarthritis of knee Plan: Follow up with orthopedics as scheduled Has knee braces that she wears as needed for added stability to her knees and to help reduce her knee pain (8) Allergic rhinitis: Code(s): J30.9 - Allergic rhinitis, unspecified Qualifiers: Allergic rhinitis trigger: unspecified Allergic rhinitis seasonality: unspecified Qualified Code(s): J30.9 - Allergic rhinitis, unspecified Plan: Continue Loratadine 10 mg QD PRN - Rx refilled (9) GERD without esophagitis: Code(s): K21.9 - Gastro-esophageal reflux disease without esophagitis Plan: Dietary restrictions reinforced Continue Pantoprazole 40 mg QD (10) Vitamin D deficiency: Code(s): E55.9 - Vitamin D deficiency, unspecified Plan: Continue Vitamin D2 37492 units once a week (11) Vitamin B12 deficiency: Code(s): E53.8 - Deficiency of other specified B group vitamins Plan: Continue Vitamin B12 1000 mcg but she is advised to back this down to twice a week dosing instead of daily as her serum B12 level was very high on her recent labs Will recheck her Vitamin B12 level in 4 months for follow up (12) Insomnia: Comment: was on Trazodone 150 mg in the past but has not refilled Rx since 2016 Code(s): G47.00 - Insomnia, unspecified Qualifiers: Insomnia type: unspecified Qualified Code(s): G47.00 - Insomnia, unspecified Plan: Sleep hygiene reinforced Continue Trazodone 100 mg Q HS (13) Anxiety: Code(s): F41.9 - Anxiety disorder, unspecified Plan: Continue Lorazepam 0.5 mg TID PRN, Hydroxyzine 25 mg TID PRN and Buspirone 10 mg BID Follow up with psychiatry as scheduled (14) Depression: Code(s): F32.9 - Major depressive disorder, single episode, unspecified Qualifiers: Depression Type: unspecified Qualified Code(s): F32.9 - Major depressive disorder, single episode, unspecified Plan: Continue Budeprion SR 100 mg 2 tablets BID Follow up with psychiatry as scheduled (15) Obesity (BMI 30-39.9): Code(s): E66.9 - Obesity, unspecified Plan: Reinforced diet; weight loss and exercise are unrealistic given patient's multiple physical issues and limited activity tolerance Plan Follow up in 4 months Orders: Orders Comprehensive [place]. Panel Fast 4 Months E78.00 - Pure hypercholesterolemia, unspecified Complete Blood Count Auto Diff 4 Months D64.9 - Anemia, unspecified Thyroid Stimulating Hormone 4 Months R79.89 - Other specified abnormal findings of blood chemistry Free T4 (Free Thyroxine) 4 Months R79.89 - Other specified abnormal findings of blood chemistry UA CC w/rflx Micro + Cult 4 Months R30.0 - Dysuria Lipid Panel 4 Months E78.00 - Pure hypercholesterolemia, unspecified Vitamin D 25-OH Total 4 Months E55.9 - Vitamin D deficiency, unspecified Vitamin B12 and Folate 4 Months E53.8 - Deficiency of other specified B group vitamins Medications: Refilled loratadine 10 mg PO DAILY 30 days PRN 30 tabs 5RF allergy symptoms Coding Level of Care Code Est Pt Level 4 (19438) Complex EM visit Add On G2211 Diagnoses Pure hypercholesterolemia E78.00 Mild persistent asthma without complication J45.30 Asthma severity: mild Asthma persistence: persistent Asthma complication type: uncomplicated Migraine without status migrainosus, not intractable, unspecified migraine type G43.909 Migraine type: unspecified Status migrainosus presence: without status migrainosus Intractability: not intractable Lumbar spondylosis M47.816 Fibromyalgia M79.7 Rotator cuff tear arthropathy of left shoulder M75.102; M12.812 Primary osteoarthritis of both knees M17.0 Allergic rhinitis, unspecified seasonality, unspecified trigger J30.9 Allergic rhinitis trigger: unspecified Allergic rhinitis seasonality: unspecified GERD without esophagitis K21.9 Vitamin D deficiency E55.9 Vitamin B12 deficiency E53.8 Insomnia, unspecified type G47.00 Insomnia type: unspecified Anxiety F41.9 Depression, unspecified depression type F32.9 Depression Type: unspecified Obesity (BMI 30-39.9) E66.9
== END 2024-03-15 14:02 | disposition home or self-care (01) ==
PROVIDERS: PCP Internal Medicine; Visit Provider Internal Medicine
DX: E78.00 Pure hypercholesterolemia, unspecified (principal); J45.30 Mild persistent asthma, uncomplicated; G43.909 Migraine, unspecified, not intractable, without status migrainosus; M47.816 Spondylosis without myelopathy or radiculopathy, lumbar region; M79.7 Fibromyalgia; M75.102 Unspecified rotator cuff tear or rupture of left shoulder, not specified as traumatic; M12.812 Other specific arthropathies, not elsewhere classified, left shoulder; M17.0 Bilateral primary osteoarthritis of knee; J30.9 Allergic rhinitis, unspecified; K21.9 Gastro-esophageal reflux disease without esophagitis; E55.9 Vitamin D deficiency, unspecified; E53.8 Deficiency of other specified B group vitamins; G47.00 Insomnia, unspecified; F41.9 Anxiety disorder, unspecified; F32.9 Major depressive disorder, single episode, unspecified
CPT/HCPCS: 99214; G2211

== ENCOUNTER 2024-03-22 10:41 | Outpatient (AMB) | payer OTHER, SELFPAY ==
--- NOTE | 2024-03-22 10:46 | A.OFFVIS_ITS ---
Vital Signs 3 03/22/24 10:51 Height 5 ft 6 in Weight 220 lb BMI 35.5 Intake Visit Reasons: OV- Left Shoulder F/U S/P RTC repair, DOS: 07/25/20 Intake Note: Sabrina is a 67 year old female who presents today for a follow up s/p Left RTC repair DOS: 07/25/2020 and to discuss left shoulder MRI results. Radio Station Operator Required: No Allergies codeine [Tylenol-Codeine #3] Allergy (Intermediate, Verified 03/22/24 10:51) Rash morphine Allergy (Intermediate, Verified 03/22/24 10:51) rash and itching nalbuphine [From Nubain] Allergy (Intermediate, Verified 03/22/24 10:51) Rash oxycodone [Percocet] Allergy (Intermediate, Verified 03/22/24 10:51) Rash propoxyphene [From Darvocet-N 100] Allergy (Intermediate, Verified 03/22/24 10:51) Rash tramadol [Ultram] Allergy (Intermediate, Verified 03/22/24 10:51) Rash ibuprofen [From Motrin] Allergy (Mild, Verified 03/22/24 10:51) RASH montelukast [Singulair] Allergy (Unknown, Verified 03/22/24 10:51) Unknown HPI HPI OV- Left Shoulder F/U S/P RTC repair, DOS: 07/25/20: Details: 68-year-old female who returns to the office today for a follow-up of left RTC repair, 07/25/20. She presents today for an MRI review of her left shoulder. She continues to have pain and weakness in her left shoulder. She does not have a history of diabetes. [facility] Medical History Folliculitis Pure hypercholesterolemia Allergic rhinitis Insomnia Multiple joint pain GERD without esophagitis Vitamin D deficiency Lumbar spondylosis Obesity (BMI 30-39.9) Migraine Primary osteoarthritis of both knees Urinary incontinence Rotator cuff tear, left Depression Asthma Fibromyalgia Non-toxic multinodular goiter Anxiety Surgical History Status post rotator cuff surgery S/P rotator cuff repair Status post right rotator cuff repair (~07/26/18) History of hysterectomy History of cholecystectomy History of laminectomy (~2009) Family History Father Diabetes Mother Medical history unknown Social History Household Members: None Housing: Apartment Do you presently have visiting nurse or other home services: No Alcohol intake: former Patient Tobacco Use Status: Never used Tobacco e-Cigarette/Vaping Use: Never Used Second Hand Smoke Exposure: No service: No Current occupational status: disabled Cognitive needs: Yes (cane) Hearing needs: No Vision needs: Yes (glasses) Review of Systems Const All systems reviewed & are unremarkable except as noted in HPI and below Physical Exam Vital Signs: BMI result Body Mass Index 35.5 Const General: cooperative and no acute distress Orientation/consciousness: patient oriented x3 Resp Effort & Inspection: normal respiratory effort and able to speak in complete sentences Cardio Peripheral pulses: Peripheral pulses 2+ throughout Neuro General: patient oriented x3 Extrem Other: Left shoulder: Normal to inspection. Surgical scars well healed.She has significant weakness performing empty can. She has a negative belly press and lift off. Office Procedures Joint Injection/Aspiration Joint Injection/Aspiration Primary Site: left shoulder Prep: site was prepped using aseptic technique, ethochloride spray was applied and injection warnings given Injected: 80 mg of, DepoMedrol, with 8 mL of, 1% plain lidocaine and in the subcromial space Approach Used: posterolateral Procedure: The patient tolerated the procedure well and there was some relief with the local anesthesia Coding 07577 - Glenohumeral/Tronchanteric Bursa/Intraarticular Procedure code (CPT) selection complete Results Reviewed Results Reviewed: Assessment & Plan Assessment & Plan (1) S/P left rotator cuff repair: Code(s): Z98.890 - Other specified postprocedural states Category: Surgical Plan We discussed options today, which include steroid injection. The patient did consent to move forward with the left shoulder injection, which was tolerated well. I recommended rest, ice, and elevation and OTC anti-inflammatories as needed for discomfort. If symptoms persist or worsen over the next 6-8 weeks, patient will contact the office, otherwise follow-up as needed. Patient Instructions: Scribed for Sajan Cook PA-C, by Maxwell Ruiz medical field representative, on 03/22/2024 at 11:00 AM EST.? I, Sajan Cook PA-C, have personally reviewed and agree with the information entered by the scribe. Coding Level of Care Code Est Pt Level 3 (13785) Complex EM visit Add On G2211 Diagnoses S/P left rotator cuff repair Z98.890 CPT Codes Coding - Joint 7: 00703 - Glenohumeral/Tronchanteric Bursa/Intraarticular ([id number])
[2024-03-22 10:51] VITALS: BMI 35.5
== END 2024-03-22 11:16 | disposition home or self-care (01) ==
PROVIDERS: PCP Internal Medicine; Visit Provider Physician Assistant
DX: M19.012 Primary osteoarthritis, left shoulder (principal)
CPT/HCPCS: 20610; 99213

== ENCOUNTER → 2024-03-22 10:41 | Outpatient (BNVA) | payer OTHER, SELFPAY | PROVIDERS: PCP Internal Medicine; Visit Provider Physician Assistant | DX: M19.012 Primary osteoarthritis, left shoulder (principal); Z98.890 Other specified postprocedural states | CPT/HCPCS: 20610; 99212; J1010 ==

== ENCOUNTER 2024-03-29 10:06 | Outpatient (AMB) | payer OTHER, SELFPAY ==
[2024-03-29 10:14] VITALS: BP 116/80; PULSE 73; TEMP 36.9; O2SAT 94; BMI 35.2
--- NOTE | 2024-03-29 10:14 | AM.OFFWIN_ITS ---
Intake Vital Signs 03/29/24 10:14 Height 5 ft 6 in Weight 218 lb BMI 35.2 BP 116/80 Blood Pressure Location Rt brachial Position Sitting Pulse 73 Pulse Source Pulse Oximeter Temp 98.4 F Temp Source Oral Pulse Oximetry (%) 94 Oxygen Delivery Method Room Air Intake Visit Reasons: EP vaginal discharge Intake Note: pt c/o abnormal vaginal lesion. 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 Allergies codeine [Tylenol-Codeine #3] Allergy (Intermediate, Verified 03/29/24 10:14) Rash morphine Allergy (Intermediate, Verified 03/29/24 10:14) rash and itching nalbuphine [From Nubain] Allergy (Intermediate, Verified 03/29/24 10:14) Rash oxycodone [Percocet] Allergy (Intermediate, Verified 03/29/24 10:14) Rash propoxyphene [From Darvocet-N 100] Allergy (Intermediate, Verified 03/29/24 10:14) Rash tramadol [Ultram] Allergy (Intermediate, Verified 03/29/24 10:14) Rash ibuprofen [From Motrin] Allergy (Mild, Verified 03/29/24 10:14) RASH montelukast [Singulair] Allergy (Unknown, Verified 03/29/24 10:14) Unknown Do you need a note to return to daycare/school/sports/work: No HPI HPI Comments History of Present Illness Details Patient is a 68-year-old female complaining of a bump in her private area that she noticed 3 days ago. She states she is a and has not been sexually active for many years. She denies anything like this happening before. She denies any fevers, vaginal discharge, changes in urination or her bowel habits. [facility] Medical History Folliculitis Pure hypercholesterolemia Allergic rhinitis Insomnia Multiple joint pain GERD without esophagitis Vitamin D deficiency Lumbar spondylosis Obesity (BMI 30-39.9) Migraine Primary osteoarthritis of both knees Urinary incontinence Rotator cuff tear, left Depression Asthma Fibromyalgia Non-toxic multinodular goiter Anxiety Surgical History Status post rotator cuff surgery S/P rotator cuff repair Status post right rotator cuff repair (~01/20/19) History of hysterectomy History of cholecystectomy History of laminectomy (~2009) Family History Father Diabetes Mother Medical history unknown Social History Household Members: None Housing: Apartment Do you presently have visiting nurse or other home services: No Alcohol intake: former Patient Tobacco Use Status: Never used Tobacco e-Cigarette/Vaping Use: Never Used Second Hand Smoke Exposure: No service: No Current occupational status: disabled Cognitive needs: Yes (cane) Hearing needs: No Vision needs: Yes (glasses) Review of Systems Const All systems reviewed & are unremarkable except as noted in HPI and below Physical Exam Vital Signs: Last Vital Signs Temp 98.4 F 03/29/24 10:14 Pulse 73 03/29/24 10:14 BP 116/80 03/29/24 10:14 Pulse Ox 94 03/29/24 10:14 Oxygen Delivery Method Room Air 03/29/24 10:14 BMI result Body Mass Index 35.2 Const General: cooperative, healthy appearing, comfortable, no acute distress and well developed Orientation/consciousness: patient oriented x3 Limitations: no limitations Eyes General: appearance normal, both eyes and all related structures Resp Effort & Inspection: normal respiratory effort and able to speak in complete sentences External Female Exam: lesion (left labia minora 0.75cm flat shiny, wet lesion with erythematous base, TTP) Neuro General: patient oriented x3 Assessment & Plan Assessment & Plan (1) Lesion of labia: Code(s): N90.89 - Other specified noninflammatory disorders of vulva and perineum Plan: Sent culture for HSV testing, if negative, she should 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 Plan See above Orders: Orders Herpes Virus Culture Today N90.89 - Other specified noninflammatory disorders of vulva and perineum Coding Level of Care Code Est Pt Level 3 (57119) Diagnoses Lesion of labia N90.89
== END 2024-03-29 10:41 | disposition home or self-care (01) ==
PROVIDERS: PCP Internal Medicine; Visit Provider Physician Assistant
DX: N90.89 Other specified noninflammatory disorders of vulva and perineum (principal)

== ENCOUNTER 2024-03-29 10:06 | Outpatient (REF) | payer OTHER, SELFPAY | END 2024-03-29 10:07 | disposition home or self-care (01) | LOC: HO.LAB 10:06 | PROVIDERS: PCP Internal Medicine; Visit Provider Physician Assistant | DX: N90.89 Other specified noninflammatory disorders of vulva and perineum (principal) | CPT/HCPCS: 87255; 99212 ==

== ENCOUNTER 2024-04-20 10:00 | Outpatient (AMB) | payer OTHER, SELFPAY ==
--- NOTE | 2024-04-20 10:08 | AM.OFFWIN_ITS ---
Intake Vital Signs 04/20/24 10:10 Height 5 ft 6 in Weight 222 lb BMI 35.8 BP 110/78 Blood Pressure Location Rt brachial Position Sitting Pulse 100 Pulse Source Pulse Oximeter Pulse Oximetry (%) 95 Oxygen Delivery Method Room Air Intake Visit Reasons: EP Coughing, asthma, sob Intake Note: Patient here for asthma flare up, sob and coughing which started last night. Patient Tobacco Use Status: Never used Tobacco Allergies codeine [Tylenol-Codeine #3] Allergy (Intermediate, Verified 04/20/24 10:11) Rash morphine Allergy (Intermediate, Verified 04/20/24 10:11) rash and itching nalbuphine [From Nubain] Allergy (Intermediate, Verified 04/20/24 10:11) Rash oxycodone [Percocet] Allergy (Intermediate, Verified 04/20/24 10:11) Rash propoxyphene [From Darvocet-N 100] Allergy (Intermediate, Verified 04/20/24 10:11) Rash tramadol [Ultram] Allergy (Intermediate, Verified 04/20/24 10:11) Rash ibuprofen [From Motrin] Allergy (Mild, Verified 04/20/24 10:11) RASH montelukast [Singulair] Allergy (Unknown, Verified 04/20/24 10:11) Unknown Do you need a note to return to daycare/school/sports/work: No HPI HPI Comments History of Present Illness Details 68 y/o female patient who presents to [facility] with c/o SOB, wheezing and Cough since yesterday. H/o Asthma but does not have any inhalers at home (Ran out of refills). [facility] Medical History Folliculitis Pure hypercholesterolemia Allergic rhinitis Insomnia Multiple joint pain GERD without esophagitis Vitamin D deficiency Lumbar spondylosis Obesity (BMI 30-39.9) Migraine Primary osteoarthritis of both knees Urinary incontinence Rotator cuff tear, left Depression Asthma Fibromyalgia Non-toxic multinodular goiter Anxiety Surgical History Status post rotator cuff surgery S/P rotator cuff repair Status post right rotator cuff repair (~07/26/18) History of hysterectomy History of cholecystectomy History of laminectomy (~2009) Family History Father Diabetes Mother Medical history unknown Social History Household Members: None Housing: Apartment Do you presently have visiting nurse or other home services: No Alcohol intake: former Patient Tobacco Use Status: Never used Tobacco e-Cigarette/Vaping Use: Never Used Second Hand Smoke Exposure: No service: No Current occupational status: disabled Cognitive needs: Yes (cane) Hearing needs: No Vision needs: Yes (glasses) Review of Systems Const All systems reviewed & are unremarkable except as noted in HPI and below Physical Exam Vital Signs: Last Vital Signs Pulse 100 04/20/24 10:10 BP 110/78 04/20/24 10:10 Pulse Ox 95 04/20/24 10:10 Oxygen Delivery Method Room Air 04/20/24 10:10 BMI result Body Mass Index 35.8 Const General: cooperative and no acute distress Nutritional Appearance: obese Orientation/consciousness: patient oriented x3 HEENT Head: Yes normocephalic Ears: external ears normal and TM abnormal with fluid behind the TM bilateral General nose exam: Normal external nose present Face and sinus: Yes sinuses nontender Mouth: moist mucous membranes Resp Effort & Inspection: normal respiratory effort and able to speak in complete sentences Auscultation: no crackles, no rales, no rhonchi and wheezes Cardio Heart sounds: S1 normal heart sound present and S2 normal heart sound present Neuro General: patient oriented x3 Assessment & Plan Assessment & Plan (1) Cough in adult: Code(s): R05.9 - Cough, unspecified Plan: Ordered SARs OTC cough remedies. Ordered Albuterol inhaler for SOB and wheezing. Ordered Short course of Prednisone. Orders: Orders SARS-CoV2/FLU/RSV Today J06.9 - Acute upper respiratory infection, unspecified Medications: New albuterol sulfate 90 mcg/actuation 2 puffs inhalation Q4-6H PRN 6.7 grams 0RF shortness of breath or wheezing R05.9 - Cough, unspecified, R06.2 - Wheezing prednisone 50 mg PO DAILY 5 days 5 tabs 0RF R05.9 - Cough, unspecified, R06.2 - Wheezing benzonatate 100 mg PO TID 90 caps 0RF R05.9 - Cough, unspecified Coding Level of Care Code Est Pt Level 3 (06929) Diagnoses Cough in adult R05.9 Time Spent (min) 15
[2024-04-20 10:10] VITALS: BP 110/78; PULSE 100; O2SAT 95; BMI 35.8
== END 2024-04-20 10:39 | disposition home or self-care (01) ==
PROVIDERS: PCP Internal Medicine; Visit Provider Nurse Practitioner Family
DX: R05.9 Cough, unspecified (principal)

== ENCOUNTER 2024-04-20 10:00 | Outpatient (REF) | payer OTHER, SELFPAY ==
[2024-04-20 14:09] LABS: Influenza A PCR NEGATIVE (Negative); Influenza B PCR NEGATIVE (Negative); Resp Syncy Virus RNA Qual PCR NEGATIVE (Negative); SARS COV2 PCR INHOUSE NEGATIVE (Negative)
== END 2024-04-20 10:01 | disposition home or self-care (01) ==
LOC: HO.HMGCLNP 10:00
PROVIDERS: PCP Internal Medicine; Visit Provider Nurse Practitioner Family
DX: J06.9 Acute upper respiratory infection, unspecified (principal)
CPT/HCPCS: 0241U; 99212

== ENCOUNTER 2024-06-16 10:20 | Outpatient (REF) | payer OTHER, SELFPAY ==
[2024-06-16 10:40] LABS: MANUAL DIFF FLAG NO
[2024-06-16 10:58] LABS: Basophils Percent Auto 0.5 % (0-2); Eosinophils Absolute Auto 0.2 X10*3/uL (0.0-0.4); Eosinophils Percent Auto 3.3 % (0-4); Hematocrit 40.7 % (37.0-47.0); Hemoglobin 13.2 g/dl (12.0-16.0); Imm Gran Abs Auto 0.01 X10*3/uL (0.00-0.03); Imm Gran Pct Auto 0.2 % (0.0-0.4); Lymphocytes Absolute Auto 3.5 X10*3/uL (1.2-4.9); Lymphocytes Percent Auto 54.7 % (20-40); Mean Corpuscular HGB Conc 32.4 g/dl (31.0-35.0); Mean Corpuscular Hemoglobin 29.4 pg (27.0-33.0); Mean Corpuscular Volume 90.6 fL (80.0-98.0); Mean Platelet Volume 10.6 fL (9.4-12.3); Monocytes Absolute Auto 0.7 X10*3/uL (0.1-1.2); Monocytes Percent Auto 10.4 % (2-11); Neutrophils Percent Auto 30.9 % (45-73); Platelet Count 212 X10*3/uL (160-400); Red Blood Count 4.49 X10*6/uL (4.20-5.50); Red Cell Distribution Width 14.2 % (11.0-16.0); White Blood Count 6.5 X10*3/uL (4.8-10.8)
[2024-06-16 11:05] LABS: Estimated Average Glucose 140 mg/dL; Hemoglobin A1C 158.1533 umol/L; Hemoglobin A1c % 6.5 % (<6.0); Total Hemoglobin (HGBA1C) 3333.0868 umol/L
[2024-06-16 11:32] LABS: Alanine Aminotransferase 16 U/L (0-31); Albumin Level 3.9 g/dL (3.5-5.0); Alkaline Phosphatase 79 U/L (39-117); Anion Gap 10 (12-20); Aspartate Amino Transferase 20 U/L (5-31); Bilirubin Total 0.2 mg/dL (0.0-1.0); Blood Urea Nitrogen 22 mg/dL (9-16); Calcium 9.1 mg/dL (8.4-10.2); Carbon Dioxide 30 mmol/L (22-29); Chloride 108 mmol/L (96-108); Estimated Glomerular Filt Rate > 60; Glucose Random 128 mg/dL (60-115); Potassium 4.5 mmol/L (3.3-5.1); Sodium 143 mmol/L (135-145); Total Protein 7.1 g/dL (6.5-8.0)
[2024-06-16 11:48] LABS: Free T4 (Free Thyroxine) 1.02 ng/dL (0.71-1.85); TSH reflex Free T4 3.69 uIU/mL (0.32-4.0); Thyroid Stimulating Hormone 3.69 uIU/mL (0.32-4.0); Vitamin D 25-OH Total 28.7 ng/mL (>30)
[2024-06-16 11:56] LABS: Folate 7.3 ng/mL (> or = 4.0); Vitamin B12 1165 pg/mL (200-900)
--- OUTSIDE RECORDS SUMMARY | 2024-06-17 00:20 | XMS_ITS | Data Portability ---
Author Organization [facility] Address [address] [place] [id number] Care Team Providers Care Senior Datastage Developer Name Role Phone HIM CCA OTHER Assessment Encounter Date Assessment Date Assessment LastModified by Organization Details LastModified Time 10/22/2023 10/22/2023 I provided real -time medical direction via phone for this encounter and was available for additional phone-based assistance as needed. I have reviewed and agree with the Assessment and Plan as documented by the Franchise Consultant. Patient given the opportunity to ask questions. Our service contacted for an assessment of: Urinary symptoms As per above, patient with approximately 24 hours of dysuria, frequency. No history of frequent urinary tract infections. Denies fever, chills, abdominal pain, back pain, flank pain. Per filters assembler on the scene, Vital signs are stable and the patient is afebrile. Patient is nontoxic in appearance. UA is positive for leukocytes. urine sent for culture. Impression: Urinary symptoms and UTI Plan: Levaquin 500 mg for 7 days. We discussed the diagnostic uncertainty of home visits and the risk associated with this. In this case, the patient and I felt this to be an acceptable and reasonable amount of risk given the benefit of avoiding an ED visit. We discussed the need to seek care urgently/emergen tly in the setting of any new or worsening serious symptoms, particularly fever chills [email or web address] Not available 10/22/2023 21:24:28 Plan of Treatment Reminders Order Date Submit Date Provider Last Modified By Organization Details Last Modified Time Details Appointments None recorded . Lab BMP, serum or plasma 2022 023 [email or web address] [facility], [address] [place] [address], [id number], 19:46:18 BMP, serum or plasma 2022 023 [email or web address] [facility], [address] [place] [address], [phone], 3 13:31:51 urinalys is, dipstick 2023 024 [facility], [address] [place] [address], [phone], 4 09:18:24 culture, urine 2023 024 [email or web address], [address] [place] [address], [address], 4 09:55:32 urinalys is, dipstick 2023 024 [facility] [address] [place] [address], [phone], 4 09:18:51 Referral None recorded . Procedures None recorded . Surgeries None recorded . Imaging None recorded . Medication Orders meclizin e 25 mg tablet 2022 023 GIO [facility], [address] [place], [address], 3 19:55:10 ondanset melissa 4 mg disinteg rating tablet 2022 023 G[facility], [address] [place], [address], 3 13:33:30 sodium chloride 0.9 % intraven ous solution 2022 023 [email or web address] [facility], [address] [facility], [place], [address], 3 13:32:47 ondanset melissa HCl (PF) 4 mg/2 mL injectio n solution 2022 023 [email or web address] [facility], [address] [place], [address], 3 13:32:47 lactated Ringers intraven ous solution 2022 023 [email or web address] [facility], [address] [place], [address], 3 12:22:06 levoflox acin 500 mg tablet 2023 024 G[facility], [address] [facility], [place], [address], 4 21:23:53 Patient TargetsNo targets recorded. Patient Instructions Encounter Date Encounter Id Patient Instructions Last Modified By Organization Details Last Modified Time 02/23/2023 [id number] orthostatic vitals* GIO Not available 02/29/2024 05:01:31 Reason for Referral None Reported. Results Created Date Observation Date Name Description Value Unit Range Abnormal Flag Note LastModifiedBy Organization Detail LastModifiedTime 02/24/2002/23/2023 BMP, serum or plasm a BUN 19 Not Available [facility] [address], [address], 02/23/2023 19:45:16 02/24/20 23 02/23/2023 BMP, serum or plasm a CI- 99 Not Available [facility] [address], [address], 02/23/2023 19:45:16 02/24/20 23 02/23/2023 BMP, serum or plasm a CRE 0.7 Not Available [facility] [address], [address], 02/23/2023 19:45:16 02/24/20 23 02/23/2023 BMP, serum or plasm a GLU 162 Not Available [facility] [address], [address], 02/23/2023 19:45:16 02/24/20 23 02/23/2023 BMP, serum or plasm a K+ 4.2 Not Available [facility] [address], [address], 02/23/2023 19:45:16 02/24/20 23 02/23/2023 BMP, serum or plasm a Na+ 139 Not Available [facility] [address], [address], 02/23/2023 19:45:16 02/24/20 23 02/23/2023 BMP, serum or plasm a tCO2 20 Not Available [facility] [address], [address], 02/23/2023 19:45:16 03/01/20 23 03/01/2023 BMP, serum or plasm a BUN 23 Not Available [facility] [address], [address], 03/01/2023 13:31:01 03/01/20 23 03/01/2023 BMP, serum or plasm a CRE 0.7 Not Available [facility] [address], [address], 03/01/2023 13:31:01 03/01/20 23 03/01/2023 BMP, serum or plasm a GLU 131 Not Available [facility] [address], [address], 03/01/2023 13:31:01 03/01/20 23 03/01/2023 BMP, serum or plasm a K+ 4.6 Not Available [facility] [address], [address], 03/01/2023 13:31:01 03/01/20 23 03/01/2023 BMP, serum or plasm a Na+ 140 Not Available [facility] [address], [address], 03/01/2023 13:31:01 03/01/20 23 03/01/2023 BMP, serum or plasm a tCO2 28 Not Available [facility] [address], [address], 03/01/2023 13:31:01 Result Notes None recorded. Medical Equipment None Reported. Medications Name Sig Start Date Stop Date Status Note LastModified by Organization Details LastModified Time cyclobenzapr ine 10 mg tablet active Not Available Not Available Not Available amoxicillin 500 mg capsule active Not Available Not Available Not Available divalproex 250 mg tablet,delay ed release active Not Available Not Available N ot Available cefpodoxime 200 mg tablet Take 1 tablet every 12 hours by oral route for 7 days. active Not Available Not Available Not Available cephalexin 250 mg capsule active Not Available Not Available Not Available meloxicam 15 mg tablet active Not Available Not Available No t Available ondansetron HCl 4 mg tablet active Not Available Not Available Not Available prednisone 20 mg tablet active Not Available Not Available Not Available cyanocobalam in (vit B-12) 1,000 mcg tablet active Not Available Not Available N ot Available divalproex 500 mg tablet,delay ed release active Not Available Not Available N ot Available bupropion HCl SR 100 mg tablet,12 hr sustained-re lease active Not Available Not Available Not Available pantoprazole 20 mg tablet,delay ed release active Not Available Not Available N ot Available nortriptylin e 25 mg capsule active Not Available Not Available Not Available hydromorphon e 2 mg tablet active Not Available Not Available Not Available lorazepam 0.5 mg tablet active Not Available Not Available Not Available methocarbamo l 750 mg tablet TAKE 1 TABLET BY MOUTH EVERY 6 HOURS NEEDED FOR ANALGESIA. active Not Available Not Available N ot Available dicyclomine 20 mg tablet active Not Available Not Available Not Available meclizine 25 mg tablet Take 1 tablet 3 times a day by oral route as needed for 7 days. active Not Available Not Available No t Available cephalexin 500 mg capsule active Not Available Not Available Not Available pantoprazole 40 mg tablet,delay ed release active Not Available Not Available N ot Available buspirone 10 mg tablet active Not Available Not Available No t Available lidocaine 5 % topical patch active Not Available Not Available Not Available sodium chloride 0.9 % intravenous solution Inject 1000 mL by intravenous route. 2022 active Not Available Not Available Not Avai lable ergocalcifer ol (vitamin D2) 1,250 mcg (50,000 unit) capsule TAKE 1 CAPSULE BY MOUTH ONCE A WEEK active Not Available Not Available No t Available levofloxacin 500 mg tablet Take 1 tablet every 24 hours by oral route for 6 days. active Not Available Not Available Not Available ondansetron 4 mg disintegrati ng tablet Place 1 tablet under tongue every 8 hours as needed for nausea active Not Available Not Available No t Available loratadine 10 mg tablet active Not Available Not Available Not Available Ventolin HFA 90 mcg/actuatio n aerosol inhaler active Not Available Not Available Not Available cyclobenzapr ine 5 mg tablet active Not Available Not Available Not Available nitrofuranto in monohydrate/ macrocrystal s 100 mg capsule active Not Available Not Available Not Available duloxetine 30 mg capsule,daryl yed release active Not Available Not Available Not Available Nyamyc 100,000 unit/gram topical powder active Not Available Not Available Not Available pregabalin 150 mg capsule active Not Available Not Available Not Available sodium fluoride 1.1 % dental paste active Not Available Not Available Not Available ondansetron HCl (PF) 4 mg/2 mL injection solution Take 4 mg by injection route. 2022 active Not Available Not Available Not Avai lable cholecalcife rol (vitamin D3) 50 mcg (2,000 unit) capsule active Not Available Not Available Not Available Vitals Date Recorded Heart rate Body temperature Respiratory rate Oxygen saturation Oxygen saturation in Arterial blood by Pulse oximetry Systolic blood pressure Diastolic blood pressure Provider Name and Address Organization Details Last Updated DateTime 3 65 /min 97.8 [degF] 16 /min 98 % 98 % 118 mm[Hg] 76 mm[Hg] Not Available [facility] 3 18:33:45 Date Recorded Body temperature Respiratory rate Heart rate Body weight Oxygen saturation Oxygen saturation in Arterial blood by Pulse oximetry Systolic blood pressure Diastolic blood pressure Provider Name and Address Organization Details Last Updated DateTime 3 98.8 [degF] 16 /min 64 /min 032330. 76 g 98 % 98 % 126 mm[Hg] 80 mm[Hg] Not Available [facility] - [facility] 3 13:28:39 Date Recorded Body temperature Respiratory rate Heart rate Oxygen saturation Oxygen saturation in Arterial blood by Pulse oximetry Systolic blood pressure Diastolic blood pressure Provider Name and Address Organization Details Last Updated DateTime 3 97.9 [degF] 16 /min 99 /min 97 % 97 % 128 mm[Hg] 78 mm[Hg] Not Available [facility] - production 3 11:48:04 Date Recorded Body temperature Heart rate Respiratory rate Oxygen saturation Oxygen saturation in Arterial blood by Pulse oximetry Systolic blood pressure Diastolic blood pressure Provider Name and Address Organization Details Last Updated DateTime 3 96.9 [degF] 72 /min 16 /min 100 % 100 % 161 mm[Hg] 90 mm[Hg] Not Available [facility] - [facility] 3 15:42:48 Date Recorded Body weight Body height Body temperature Oxygen saturation Oxygen saturation in Arterial blood by Pulse oximetry Respiratory rate Heart rate Systolic blood pressure Diastolic blood pressure Provider Name and Address Organization Details Last Updated DateTime 4 99601.6 g 152.4 cm 98.4 [degF] 96 % 96 % 14 /min 80 /min 124 mm[Hg] 80 mm[Hg] Not Available [facility] 4 21:21:02 Social History None recorded. Functional Status None recorded. Mental Status None recorded. Family History Nothing Reported. Medical History No medical history recorded. Gynecological HistoryNo gynecological history recorded. Obstetrics History GPAL:G 0 P 0 0 0 0 Past Encounters Encounter ID Performer Location Encounter Start Date Encounter Closed Date Diagnosis/Indication Diagnosis SNOMED-CT Code Diagnosis ICD10 Code [id number] Kesha Beck MD [facility] [address] [place] [phone] 02/21/2023 15:44:06 02/22/2023 15:35:21 Dehydration 49756395 E86.0 [id number] Sajan Rueda MD [facility] [address] [place] [phone] 02/23/2023 18:33:42 02/24/2023 07:20:36 Dizziness 575178946 R42 [id number] Madelyn Robertson MD [facility] [address] [place] [id number] 03/01/2023 13:28:34 03/04/2023 11:06:40 Acute gastroenteritis 51480357 K52.9 [id number] Carmen Pemberton MD [facility] [address] [place] [id number] 03/02/2023 11:45:43 03/04/2023 11:11:38 Acute gastroenteritis 91322585 K52.9 [id number] Jose Hawk MD [facility] [address] [place] [id number] 04/06/2023 15:42:46 04/07/2023 08:17:20 Syncope and collapse [id number] R55 [id number] Alie Dillard MD [facility] [address] [place] [phone] 10/22/2023 21:20:49 10/23/2023 11:15:53 Urinary symptoms 146579610 R39.9 Health Concerns Section Related Observation LastModified by Organization Detai ls LastModified Time None Recorded Concern Status LastModified by Organization Details LastModified Time None Recorded Advance Directives Directive None Recorded Payers Encounter Date Sequence Insurance Name Policy Number Policy Maradiaga Covered Member ID Maradiaga Member ID Guarantor Name 02/23/2023 1 [facility] DOS ON OR AFTER 2022 - DUAL ELIGIBLE - USP OPTIONS AND ONE CARE (MEDICARE REPLACEMENT/ADV ANTAGE - HMO) Sabrina Mcqueen [id number] Sabrina Mcqueen 03/01/2023 1 [employer] - DOS ON OR AFTER 2022 - DUAL ELIGIBLE - USP OPTIONS AND ONE CARE (MEDICARE REPLACEMENT/ADV ANTAGE - HMO) Sabrina Mcqueen [id number] Sabrina Mcqueen 03/02/2023 1 [employer] - DOS ON OR AFTER 2022 - DUAL ELIGIBLE - USP OPTIONS AND ONE CARE (MEDICARE REPLACEMENT/ADV ANTAGE - HMO) Sabrina Mcqueen [id number] Sabrina Mcqueen 04/06/2023 1 [employer] - DOS ON OR AFTER 2022 - DUAL ELIGIBLE - USP OPTIONS AND ONE CARE (MEDICARE REPLACEMENT/ADV ANTAGE - HMO) Sabrina Mcqueen [id number] Sabrina Mcqueen 10/22/2023 1 [employer] - DOS ON OR AFTER 2022 - DUAL ELIGIBLE - USP OPTIONS AND ONE CARE (MEDICARE REPLACEMENT/ADV ANTAGE - HMO) Sabrina Mcqueen [id number] Sabrina Mcqueen Notes Date Note Type Note Provider Name and Address Organization Details Recorded Time 02/23/2023 text/html [facility] Nursing Assessment: Reason For Request: Dizziness Chief Complaints: Syncope/Dizziness/ Lightheadedness PMH: COPD/Asthma Comments: Referral taken via Medical Assistant Supervisor [id number]. Member identified via /name. Member seen 02/21 by [facility] for dizziness and nausea. During visit it was noted members Cr was 1.6 from base of 0.7, member received 1L LR and felt better. Member calling in with dizziness again that started about 4:30p yesterday. Member states she eating and drinking without difficulty. Denies headache, no vision changes, no numbness or tingling anywhere, no chest pain or sob, denies n/v/d, no fever/chills. Member would like to be evaluated .................. .................. .................. .................. .................. .................. .................. ............... Franchise Consultant Note From Man Bolton: Dispatched to the call address for the female with dizziness. Pt states she was seen yesterday by [facility] Franchise Consultant and was given 1L of fluid. Pt states she has had this dizziness for 2.5 months now. She states if she is just sitting or laying down she feels fine but if she gets up she gets dizzy. She denies any CP, SoB, n/v/d or cold/flu like symptoms. Pt states she has been able to maintain PO hydration. Pt was found laying in bed, CAOx4, airway open and patent, breathing non labored, able to speak in full sentences, -JVD, -HEENT, skin PWD with good turgor, pupils PERRL, FAST score 0, +CMSx4, strong and regular radial pulses, abd soft non tender/distended. [facility] consulted. BMP (WNL). Pt given Meclizine, advised to follow up with her PCP and red flags discussed. Script called into preferred pharmacy. ALL times are approx. .................. .................. .................. .................. .................. .................. .................. ............... Disposition: Fulfilled Sajan Rueda MD [address] [place] [address],[address], [place], [address], [employer] [facility] 02/24/2023 15:04:28 03/01/2023 text/html CRC Nursing Assessment: Chief Complaints: Abdominal Pain, Pain PMH: COPD/Asthma Allergies: No Known Comments: Pt reports having N/V/D and feeling unwell - S/S started this am - Denies denies fever/chills - Denies QUACH and Body aches - Decreased PO intake - Abdominal pain in all quadrants - Member is requesting an MiNeeds response requested. Shreyas TORRES .................. .................. .................. .................. .................. .................. .................. ............... Franchise Consultant Note From Himanshu Payne: pt requesting visit for abd pain, Nausea, vomiting and diarrhea since this morning. Abd is soft with tenderness in the epigastric area. pt reports having a hx of gastritis. Pt reports being able to intake fluids but then having diarrhea shortly afterwards. Vitals assessed. Pt denies being around anyone else who is sick and denies fevers/chills . IV established 20g in right AC and POC bloodwork drawn, unremarkable. [place] [facility] ordered 1L of NS and 4MG of zofran IVP. [facility] [place] for Zofran to pt's pharmacy. Pt educated on s/s warranting a 911 call/trip to the hospital. Pt advised to F/U with PCP or [facility] if symptoms persist or worsen. [facility] Orders: BMP, serum or plasma: Performed .................. .................. .................. .................. .................. .................. .................. ............... Disposition: Fulfilled Madelyn Robertson MD [address] [place] [address],[address], [place], [phone], [facility] 03/01/2023 14:39:58 03/02/2023 text/html CRC Nursing Assessment: Chief Complaints: Abdominal Pain, Pain PMH: COPD/Asthma Allergies: Unknown Comments: Member was evaluated yesterday by [employer] - Reports s/s remain the same and is requesting a response ------ pt requesting visit for abd pain, Nausea, vomiting and diarrhea since this morning. Abd is soft with tenderness in the epigastric area. pt reports having a hx of gastritis. Pt reports being able to intake fluids but then having diarrhea shortly afterwards. Vitals assessed. Pt denies being around anyone else who is sick and denies fevers/chills . IV established 20g in right AC and POC bloodwork drawn, unremarkable. Sent results to [facility] contacted [facility] ordered 1L of NS and 4MG of zofran IVP. [facility] [place] prescription for Zofran to pt's pharmacy. Pt educated on s/s warranting a 911 call/trip to the hospital. Pt advised to F/U with PCP or [facility] if symptoms persist or worsen. Shreyas TORRES .................. .................. .................. .................. .................. .................. .................. ............... Franchise Consultant Note From Man Bolton: Dispatched to the Pt who had been seen multiple times this week, for diarrhea and abd pain. Pt states yesterday morning she started with diarrhea and was given IV fluids. She states she was up all night with it and didn? t sleep much at all and it remained this morning. She complains of ULQ pain. She had not attempted any OTC medications. Pt was found laying in bed, CAOx4, airway open and patent. 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 Able to speak in full sentences, -JVD, -HEENT, pupils PERRL, and soft non tender/distended, skin PWD with good turgid, lung sounds clear an equal bilaterally. [facility] consulted. IV established. BMP conducted, 1L LR given. Red flags discussed. All times are approx. .................. .................. .................. .................. .................. .................. .................. ............... Disposition: Fulfilled Carmen Socolovsky, MD [address] [facility],[address], [place], [address], [employer] 03/03/2023 12:22:18 04/06/2023 text/html CRC Nursing Assessment: Chief Complaints: Syncope/Dizziness/ Lightheadedness, Falls PMH: COPD/Asthma Allergies: Unknown Comments: + dizziness since yesterday. Fall x2 yesterday and today. Unsteady gait due to dizziness. Unknown LOC. Possible head strike. c/o left wrist pain. Advised ED for further evaluation. Member declined ED after education but will accept [facility] visit first. Red flags reviewed. Instructed to call 911 for worsening symptoms. Jose Hawk MD [address] [facility],[address], [place], [phone], [employer] 04/06/2023 15:45:49 10/22/2023 text/html CRC Nurse Triage Notes (Morenita Dawson): Chief Complaints: Pain PMH: COPD/Asthma Allergies: Unknown Comments: Slovenian speaking member. dishroom attendant used. Verified name//address. Member reports left flank pain that is getting worse. Reports multiple falls. Last fall on Friday. Member states she was evaluated s/p falls. Denies fevers. Denies urinary symptoms. Denies chest pain or shortness of breath. Advised member to call 911 with worsening signs/symptoms. .................. .................. .................. .................. .................. .................. .................. ............... Franchise Consultant Note From Costa Nielsen: Patient conscious alert and oriented answers the door with a slow shuffling gait. Patient complains of left side CVA pain times seven days. With painful burning urination. Patient reports last UTI. Many years ago. Patient denies nausea. Vomiting diarrhea or any other pain or complaints. Patient pink, warm and dry positive CVA tenderness left side. Lung sounds clear negative edema. No other significant findings. Patient provides urine sample culture to [facility] UA values to [facility] [facility] orders levafloxacin 500 mg PO and will prescribe more to patients local pharmacy. Red flags and patient education discussed. Consent, signed and uploaded times two .................. .................. .................. .................. .................. .................. .................. ............... Disposition: Fulfilled Alie Dillard MD [address] [facility],[address] [facility], [place], [address], [employer] 10/22/2023 21:25:11 OBGyn Episode No OBEpisode recorded.
--- OUTSIDE RECORDS SUMMARY | 2024-06-17 00:20 | XMS_ITS | Data Portability ---
Author Organization [facility], Main Office Address [address], [address] [place] [address] Care Team Providers Care Home Economist Consumer Service Name Role Phone BLAZE PATTEN Primary Care Provider [facility] OTHER Assessment Encounter Date Assessment Date Assessment LastModified by Organization Details LastModified Time 11/22/2020 11/22/2020 11/21/20 WBC 5.5, Hgb 13, Hct 40.7, Plt 278, Na 141, K 4.6, BUN 11, Cardiac Catheterization Technician 0.72, karri 8.8 11/15/20 WBC 5.4, Hgb 13.2, Hct 41.3, Plt 291, Na 138, K 4.3, BUN 17, Cardiac Catheterization Technician 1.06, karri 8.6, tot prot 6.9, alb 3.2, tot bili 0.2, AST 19, ALT 24, alk phos 125 [email or web address] Not available 11/22/2020 10:14:01 11/20/2023 11/20/2023 11/15/20 WBC 5.4, Hgb 13.2, Hct 41.3, Plt 291, Na 138, K 4.3, BUN 17, Cardiac Catheterization Technician 1.06, karri 8.6, tot prot 6.9, alb 3.2, tot bili 0.2, AST 19, ALT 24, alk phos 125 Not available 11/20/2023 08:21:55 11/21/2023 11/21/2023 11/15/20 WBC 5.4, Hgb 13.2, Hct 41.3, Plt 291, Na 138, K 4.3, BUN 17, Cardiac Catheterization Technician 1.06, karri 8.6, tot prot 6.9, alb 3.2, tot bili 0.2, AST 19, ALT 24, alk phos 125 [email or web address] Not available 11/21/2023 22:51:56 Plan of Treatment Reminders Order Date Submit Date Provider Last Modified By Organization Details Last Modified Time Details Appointments None record ed. Lab None record ed. Referral None record ed. Procedures None record ed. Surgeries None record ed. Imaging None record ed. Medication Orders None record ed. Patient TargetsNo targets recorded. Patient InstructionsNo instructions recorded. Reason for Referral None Reported. Problems Name Problem SNOMED Code Status Onset Date Resolution Date Notes Provider Name and Address Organization Details Recorded Time Falls 926863016 Active 2020 [address]ANA [address], [address], [place], [address], [facility] 1 09:16:33 Injury of rotator cuff 869525806 Active 2020 LYLE SANTANA [address], [address], [place], [address], [facility] 1 09:17:03 Anxiety 16893903 Active 2020 LYLE SANTANA [address], [address], [place], [address], [facility] [employer] 1 09:19:26 Asthma 193790586 Active 2020 LYLE SANTANA [address], [address], [place], [address], [facility] 1 09:19:37 Depressive disorder 28511333 Active 2020 LYLE SANTANA [address], [address], [place], [address], [facility] 1 09:19:46 Fibromyalgia 149526014 Active 2020 LYLE SANTANA [address], [address], [place], [address], [facility] 1 09:19:57 Chronic low back pain 656400450 Active 2020 LYLE SANTANA [address], [place], [address], [facility] 1 09:23:26 Non-toxic multinodular goiter 63010466 Active 2020 LYLE SANTANA [address], [place], [address], [facility] 1 09:31:03 Gastroesophage al reflux disease without esophagitis 453525284 Active 2020 LYLE SANTANA [address], [place], [address], [facility] 1 17:45:05 Vitamin D deficiency 52704527 Active 2020 LYLE SANTANA [address], [address], [place], [address], [facility] 1 17:50:09 Obesity 592252062 Active 2020 Danny Mcarthur MD [address], [place], [address], [facility] 1 10:03:21 Vertigo 628910752 Active 2020 LYLE SANTANA [address], [address], [place], [address], [facility] 1 22:04:34 Osteoarthritis of knee 461417478 Active 2020 LYLE SANTANA [address], [place], [address], [facility] 1 09:11:19 Asthenia 30430105 Active 2023 Araceli Mendoza NP [address], [address], [place], [address], [facility] 4 08:59:56 Problem Notes None recorded. Procedures Surgical History Date Name Laterality Status Provider Name and Address Organization Details Recorded Time 07/18/19 21 complete repair of rotator cuff completed LYLE SANTANA [address], [address], [place], [address], [facility] 09/15/2020 17:42:10 cholecystectomy completed SIMRAN HOUSTON, SURGEON CHIEF [address], [place], [address], [facility] 09/15/2020 09:26:25 Hysterectomy completed SIMRAN HOUSTON, SURGEON CHIEF [address], [address], [place], [address], [facility] 09/15/2020 09:28:09 laminectomy completed SIMRAN HOUSTON, SURGEON CHIEF [address], [address], [place], [address], [facility] 09/15/2020 09:29:37 Imaging Results None recorded. Procedure Notes None recorded. Medical Equipment None Reported. Allergies Allergen ID Allergen Name Allergen Category Reaction Reaction Severity Criticality Documentation Date Start Date Code Code System Note Provider Name and Address Organization Details Recorded Time 27422 codeine medicatio n rash Not available Not available 09/15/2020 2670 RxNorm SIMRAN HOUSTON, SURGEON CHIEF [address], [address], [place], [address], [facility] 09:07:10 29208 morphine medicatio n rash Not available Not available 09/15/2020 7052 RxNorm SIMRAN HOUSTON, SURGEON CHIEF [address], [address], [place], [address], [facility] 09:07:28 09542 Nubain medicatio n rash Not available Not available 09/15/2020 7550 RxNorm SIMRAN HOUSTON, SURGEON CHIEF [address], [address], [place], [address], [facility] 09:07:44 75476 oxycodone medicatio n rash Not available Not available 09/15/2020 7804 RxNorm SIMRAN HOUSTON, SURGEON CHIEF [address], [address], [place], [address], [facility] 09:08:42 49347 propoxyph leonel medicatio n rash Not available Not available 09/15/2020 8785 RxNorm SIMRAN HOUSTON, SURGEON CHIEF [address], [address], [place], [address], [facility] 1 09:09:13 01292 Ultram medicatio n rash Not available Not available 09/15/2020 88286 6 RxNorm SIMRAN HOUSTON, SURGEON CHIEF [address], [address], [place], [address], [facility] 1 09:09:31 90163 ibuprofen medicatio n rash Not available Not available 09/15/2020 5640 RxNorm SIMRAN HOUSTON, SURGEON CHIEF [address], [address], [place], [address], [facility] 1 09:09:48 52791 Singulair medicatio n Not available Not available Not available 09/15/2020 00975 9 RxNorm SIMRAN HOUSTON, SURGEON CHIEF [address], [address], [place], [address], [facility] 1 09:09:[address] medicatio n Not available Not available unabletoasse 11/20/2023 66758 RxNorm Araceli Mendoza NP [address], [address], [place], [address], [facility] 4 08:27:44 85041 acetamino phen medicatio n other Not available unabletoasse 11/20/2023 161 RxNorm unkno wn Araceli Mendoza NP [address], [address], [place], [address], [facility] 4 08:28:06 83610 hydromorp philip medicatio n other Not available unabletoasse 11/20/2023 3423 RxNorm Araceli Mendoza NP [address], [address], [place], [address], [facility] 4 08:28:54 Vitals Date Recorded Body weight Heart rate Respiratory rate Body temperature Oxygen saturation Oxygen saturation in Arterial blood by Pulse oximetry Systolic blood pressure Diastolic blood pressure Provider Name and Address Organization Details Last Updated DateTime 4 88718.4 g 64 /min 18 /min 96 [degF] 95 % 95 % 113 mm[Hg] 72 mm[Hg] Araceli Mendoza NP [address], [address], [place], [address], [facility] 4 08:22:52 Date Recorded Body weight Body mass index (BMI) Body height Heart rate Respiratory rate Body temperature Oxygen saturation Oxygen saturation in Arterial blood by Pulse oximetry Systolic blood pressure Diastolic blood pressure Provider Name and Address Organization Details Last Updated DateTime 4 41281.1 9 g 34 kg/m2 167.64 cm 80 /min 18 /min 97.5 [degF] 93 % 93 % 124 mm[Hg] 78 mm[Hg] Jane Galvan MD [address], [address], [place], [address], [facility] 4 21:22:27 Date Recorded Oxygen saturation Oxygen saturation in Arterial blood by Pulse oximetry Body temperature Body weight Provider Name and Address Organization Details Last Updated DateTime 11/21/2020 99 % 99 % 97.8 [degF] 735516. 94 g LYLE SANTANA [address], [address], [place], [address], [facility] 1 19:41:18 Date Recorded Heart rate Respiratory rate Body temperature Oxygen saturation Oxygen saturation in Arterial blood by Pulse oximetry Provider Name and Address Organization Details Last Updated DateTime 1 69 /min 15 /min 98.2 [degF] 99 % 99 % LYLE SANTANA [address], [address], [place], [address], [facility] 1 10:24:20 Date Recorded Systolic blood pressure Diastolic blood pressure Provider Name and Address Organization Details Last Updated DateTime 11/20/2020 133 mm[Hg] 69 mm[Hg] Danny Mcarthur MD [address], [address], [place], [address], [facility] 11/20/2020 12:24:49 Social History Question Answer Notes LastModified by Organizat ion Details LastModified Time Tobacco Smoking Status Never Smoker LYLE SANTANA [address], [address], [place], [address], [facility] 09/15/2020 09:37:52 Do You Have An Advance Directive? Yes DNR/DNI/DNV- no Non Invasive Ventilation/ may Transfer To Hospital-no Dialysis, Nutrition But May Use Hydration Information not available 11/15/2020 What Is Your Level Of Alcohol Consumption? None Information not available 09/15/2020 How Much Tobacco Do You Chew? None Information not available 09/15/2020 What Is Your Code Status? DNR/DNI Information not available 11/20/2023 Do You Or Have You Ever Used E-cigarettes Or Vape? Never Used Electronic Cigarettes Information not available 09/15/2020 Where Do You Live? Apartment Alone Information not available 11/21/2023 Legal Guardian? No Informati on not available 11/21/2023 Do You Have A Medical Power Of Plumber And Tinner? Yes Information not available 11/21/2023 What Was The Date Of Your Most Recent Tobacco Screening? 11/20/2023 Information not available 11/20/2023 Do You Have An Out Of Hospital DNR? Yes Information not available 11/20/2023 What Is Your Relationship Status? Information not available 11/21/2023 Do You Or Have You Ever Used Smokeless Tobacco? Never Used Smokeless Tobacco Information not available 09/15/2020 How Much Tobacco Do You Smoke? No Information not available 09/15/2020 Do You Use Any Illicit Or Recreational Drugs? No Information not available 11/21/2023 Has Tobacco Cessation Counseling Been Provided? No N/a As Pt Is A Non-smoker Information not available 11/21/2023 Do You Or Have You Ever Used Any Other Forms Of Tobacco Or Nicotine? No Information not available 11/21/2023 Sex: Female Functional Status None recorded. Mental Status None recorded. Family History Relationship Description Onset Age of this Age Resolved Age Notes LastModified by Organization Details LastModified Time Father Diabetes mellitus [email or web address] Not available 2020 09:45:35 Medical History No medical history recorded. Gynecological HistoryNo gynecological history recorded. Obstetrics History GPAL:G 0 P 0 0 0 0 Immunizations Vaccine Type Date Status Note Provider Nam e and Address Organization Details Recorded Time Tdap 6 completed Krystal [facility] 11/20/2023 15:57:00 Tdap 7 completed [facility] 11/20/2023 15:57:07 Pneumococcal conjugate PCV 13 1 completed Krystal [facility] 11/20/2023 15:57:56 pneumococcal polysaccharide PPV23 5 completed [facility] 11/20/2023 15:58:14 influenza, unspecified formulation 2 completed [facility] 11/20/2023 15:58:35 Past Encounters Encounter ID Performer Location Encounter Start Date Encounter Closed Date Diagnosis/Indication Diagnosis SNOMED-CT Code Diagnosis ICD10 Code [id number] LYLE SANTANA [address] [address] 09/15/2020 09:05:35 09/19/2020 11:31:05 Falls 017850638 R29.6 Injury of rotator cuff 285279415 S46.092S Anxiety 70339154 F41.1 Asthma 843163417 J45.20 Depressive disorder 3548 9007 F32.89 Fibromyalgia 018168829 M 79.7 Chronic low back pain 27 8550361 M54.5 Non-toxic multinodular goiter 19502430 E04.2 Gastroesop hageal reflux disease without esophagitis 012781297 K21.9 Vitamin D deficiency 347 10914 E56.8 [id number] LYLE SANTANA [address] [address] 09/18/2020 09:18:52 09/22/2020 08:57:21 Injury of rotator cuff 664494820 S46.092S Falls 209762506 R29.6 [id number] Danny Mcarthur MD [address] [address] 09/20/2020 09:45:42 09/22/2020 09:10:40 Falls 122910178 R29.6 Injury of rotator cuff 826380242 S46.092S Anxiety 52744968 F41.1 Depressive disorder 3548 9007 F32.89 Fibromyalgia 391286332 M 79.7 Chronic low back pain 27 5290859 M54.5 Non-toxic multinodular goiter 15951418 E04.2 Gastroesop hageal reflux disease without esophagitis 236378769 K21.9 Vitamin D deficiency 347 68573 E56.8 Obesity 514962408 E66.09 [id number] LYLE SANTANA [facility] [address] [address] 09/25/2020 08:48:52 09/28/2020 12:59:06 Chronic low back pain 322623985 M54.5 Fibromyalgia 161258695 M 79.7 [id number] LYLE SANTANA [facility] [address] [address] 10/02/2020 08:43:59 10/04/2020 13:00:56 Injury of rotator cuff 018133672 S46.092S Chronic low back pain 27 3552805 M54.5 Falls 432986962 R29.6 [id number] LYLE SANTANA [facility] [address] [address] 10/09/2020 08:49:40 10/11/2020 15:15:25 Falls 670802656 R29.6 Injury of rotator cuff 946590651 S46.092S Anxiety 74812445 F41.1 Asthma 717142081 J45.20 Depressive disorder 3548 9007 F32.89 Fibromyalgia 630775402 M 79.7 Chronic low back pain 27 2958154 M54.5 Non-toxic multinodular goiter 36939552 E04.2 Gastroesop hageal reflux disease without esophagitis 209005352 K21.9 Vitamin D deficiency 347 71254 E56.8 Obesity 842779623 E66.8 [id number] LYLE SANTANA [facility] [address] [address] 11/15/2020 08:32:31 11/23/2020 16:01:37 Vertigo 896370282 R42 Falls 879616062 R29.6 Fibromyalgia 594489855 M 79.7 Gastroesop hageal reflux disease without esophagitis 257982170 K21.9 Depressive disorder 3548 9007 F32.89 Chronic low back pain 27 4053262 M54.5 Asthma 749284976 J45.20 Anxiety 64291280 F41.1 Obesity 599002127 E66.8 Vitamin D deficiency 347 85276 E56.8 Non-toxic multinodular goiter 11763942 E04.2 Injury of rotator cuff 146879247 S46.092S [id number] Danny Mcarthur MD [address] [address] 11/20/2020 12:24:00 11/23/2020 16:24:02 Vertigo 811391180 R42 Falls 236613493 R29.6 Fibromyalgia 062398747 M 79.7 Gastroesop hageal reflux disease without esophagitis 704688706 K21.9 Depressive disorder 3548 9007 F32.89 Chronic low back pain 27 0712359 M54.5 Anxiety 10706418 F41.1 Obesity 407735670 E66.8 Non-toxic multinodular goiter 92626992 E04.2 Pain in right knee 04418 09727 90516 M25.561 Vitamin D deficiency 347 69746 E56.8 [id number] SIMRAN HOUSTON [address] [address] 11/21/2020 09:08:41 11/24/2020 09:26:16 Osteoarthritis of knee 197042017 M17.11 [id number] SIMRAN HOUSTON [address] [address] 11/22/2020 08:56:09 11/24/2020 09:35:24 Vertigo 431065885 R42 Falls 153032677 R29.6 Fibromyalgia 310281785 M 79.7 Gastroesop hageal reflux disease without esophagitis 125676967 K21.9 Depressive disorder 3548 9007 F32.89 Chronic low back pain 27 7396160 M54.5 Asthma 235077060 J45.20 Anxiety 06883820 F41.1 Obesity 014329676 E66.8 Vitamin D deficiency 347 22140 E56.8 Non-toxic multinodular goiter 25678253 E04.2 Injury of rotator cuff 378685807 S46.092S [id number] Araceli Mendoza NP [address] [address] 11/20/2023 08:21:31 11/24/2023 11:41:22 Vertigo 630613967 R42 Falls 994223739 R29.6 Fibromyalgia 138266839 M 79.7 Gastroesop hageal reflux disease without esophagitis 363532062 K21.9 Depressive disorder 3548 9007 F32.89 Chronic low back pain 27 6387617 M54.50 Asthma 499706149 J45.20 Anxiety 79916031 F41.1 Obesity 221454188 E66.8 Vitamin D deficiency 347 02183 E56.8 Non-toxic multinodular goiter 61887133 E04.2 Mixed anxi ety and depressive disorder 401968130 F41.8 Asthenia 03126902 R53.1 [id number] Jane Galvan MD [address] [address] 11/21/2023 21:16:22 11/26/2023 09:12:25 Vertigo 696819975 R42 Falls 330678068 R29.6 Asthenia 67309152 R53.1 Fibromyalgia 765530613 M 79.7 Gastroesop hageal reflux disease without esophagitis 542688529 K21.9 Chronic low back pain 27 5890511 M54.51 Asthma 395849300 J45.20 Mixed anxi ety and depressive disorder 211492511 F41.8 F32.89 Obesity 679741168 E66.8 Vitamin D deficiency 347 58786 E56.8 Non-toxic multinodular goiter 75376788 E04.2 Health Concerns Section Related Observation LastModified by Organization Detai ls LastModified Time None Recorded Concern Status LastModified by Organization Details LastModified Time None Recorded Advance Directives Directive Y: DNR/DNI/DNV-no non invasi ve ventilation/may transfer to hospital-no dialysis, nutrition but may use hydration Payers Encounter Date Sequence Insurance Name Policy Number Policy Maradiaga Covered Member ID Maradiaga Member ID Guarantor Name 11/20/2020 1 [facility] [employer] [employer] - DOS PRIOR TO 2022 - DUAL ELIGIBLE (MEDICARE REPLACEMENT/ADV ANTAGE - HMO) Latia Mcqueen [id number] Sabrina Mcqueen 11/21/2020 1 [facility] [employer] - DOS PRIOR TO 2022 - DUAL ELIGIBLE (MEDICARE REPLACEMENT/ADV ANTAGE - HMO) Latia Mcqueen [id number] Sabrina Mcqueen 11/22/2020 1 [facility] [employer] - DOS PRIOR TO 2022 - DUAL ELIGIBLE (MEDICARE REPLACEMENT/ADV ANTAGE - HMO) Latia Mcqueen [id number] Sabrina Mcqueen 11/20/2023 1 [facility] [employer] - DOS ON OR AFTER 2022 - MEDICARE [place]VANTAGE [place] (MEDICARE REPLACEMENT/ADV ANTAGE - PPO) Sabrina Mcqueen [id number] Sabrina Mcqueen 11/21/2023 1 [facility] [employer] - DOS ON OR AFTER 2022 - MEDICARE [place]VANTAGE [place] (MEDICARE REPLACEMENT/ADV ANTAGE - PPO) Sabrina Mcqueen [id number] Sabrina Mcqueen Notes Date Note Type Note Provider Name and Address Organization Details Recorded Time 11/21/19 21 text/ht ml Patient is a 64 yo female admit from hospital after falling out of chair with compliant of dizziness . Extensive imaging negative for acute event with neuro consulted with sx felt question secondary to polypharmacy. celexa d/c and nortriptyline dose decreased. of note patient right knee pain and swelling with imaging ordered to [facility] significant forgait instabilitydepressionchronic low back paingerdasthmafibromyalgiagait instability admit to facility for continued care and therapy Danny Mcarthur MD [address] [place] [address], [address], [place], [address], [facility] 11/20/2020 12:41:49 11/22/19 21 text/ht ml 64 year old female being seen for a acute rounding visit. Patient had a right knee x=ray for c/o right knee pain that revealed mild tricompartmental osteoarthritis and no acute abnormality. Will continue to monitor for pain. LYLE SANTANA [address], [address], [place], [address], [facility] 11/21/2020 19:43:26 11/23/19 21 text/ht ml A 64 year old female being seen for a discharge summary. Patient was brought to [facility] after her WOODWORKER HELPER found her sitting in a chair in the morning and patient states she fell backwards after getting dizzy. Chest x=ray revealed no acute intrathoracic disease. Shoulder x=ray was negative for acute findings. Spine x=ray revealed L2-L3 decompression-fusion surgical sequelae. Brain CT revealed no acute intracranial hemorrhage, was positive for ventriculomegaly. MRA of the neck showed no significant stenosis. 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 Brain MRI showed no acute ischemia, mild to moderate diffuse volume loss and mildly asymmetric ventricular enlargement. Neurology was consulted and they felt it was not NPH. They felt it was due to polypharmacy. They stopped her citalopram and decreased her nortriptyline. She was seen by PT/OT and they suggest therapy. They would also like PCP to look at medications and simplify them. She has come for short term rehab. She has done well with therapy here. She walks with a genevieve walker. She will be discharged home with services. Medical history of vertigo, falls, fibromyalgia, GERD, depression, chronic low back pain, asthma, anxiety, obesity, vitamin D deficiency, goiter and injury to rotator cuff. LYLE SANTANA [address], [address], [place], [address], [facility] 11/22/2020 13:54:07 11/20/19 24 text/ht ml A 67 year old female being seen for a initial intake note. Medical history of vertigo, falls, fibromyalgia, GERD, depression, chronic low back pain, asthma, anxiety, obesity, vitamin D deficiency, goiter and injury to rotator cuffArnold Bennett presented to [facility] ED for evaluation of back pain, nausea, and fell to the ground in her apartment without LOC diagnosised of worsening low back pain, disc herniation, and hx of compression fracture and transferred to [facility] for continued care and rehab on 11/19/23. Her workup conisted of CT head, cr spine lumbar, blood work and ekg all unremarkable for acute fracture. Mild multilevel degernerative endplate spurring with lower lumbar predominant facet arthritis noted. Blood work including troponin unremarkable. She was given a lidocaine patch and flexeril for pain. Orthos not tolerated by pt to machine tack puller ER. of note: she was admitted to rehab in 2020 for similar concerns. On exam, Sabrina is seen in sitting up at her bedside in [facility]. She denies any pain, shortness of breath, nausea, dizziness, or chest pain. She is very pleasant and denies any new concerns today. She shows this DENIAL RESOLUTION SPECIALIST her two non open red areas to bilateral knees. MOLST: DNR/DNI/transfer to hospital, no dialysis, no art nutrition, may use hydration short term Araceli Mendoza, ANTHONY [address], [address], [place], [address], [facility] 11/20/2023 09:11:01 11/21/19 24 text/ht ml This is a 67 yo woman who is here for rehab after an ED visit for a fall with subsequent back pain.She presented to the [facility] ED on 11/17 after a fall which she described variably as due to her chronic vertigo, or a trip and fall. Hx was vague.W/U in the ED was non-acute, including labs and imaging of spine, head, and C-spine. Also EKG was non-acute.L-S spine X-ray showed the following incidental findings Levoconvex curvature. Posterior interbody fusion at L2-3 is similar compared to prior. No fracture. Hardware is intact. Mild multilevel degenerative endplate spurring with lower lumbar predominant facet arthritis. C-spine also showed diffuse degenerative changes.However she was unable to stand or ambulate. So STR was recommended and she was transferred here on 11/18. Since here she has been doing well with rehab. Tonight took a shower without assist. Says she hasn't been having any vertigo since she's been here. Wants to go home tomorrow. We discussed how that is not a good idea as home services can't be reinstated until next week. Her PMH includes chronic vertigo on meclizine, anxiety/depression, asthma, GERD, fibromyalgia, multinodular goiter, OA, failed back syndrome, and vitamin D deficiency. Jane Galvan MD [address] [place] [address], [address], [place], [address], [facility] [facility] 11/21/2023 22:52:34 OBGyn Episode No OBEpisode recorded.
[2024-06-17 13:09] LABS: Triiodothyronine T3 Total 110 ng/dL (76-181)
== END 2024-06-16 10:21 | disposition home or self-care (01) ==
LOC: HO.LAB 10:20
PROVIDERS: PCP Internal Medicine; Visit Provider Internal Medicine
DX: E55.9 Vitamin D deficiency, unspecified (principal); R79.89 Other specified abnormal findings of blood chemistry; R53.83 Other fatigue; E78.00 Pure hypercholesterolemia, unspecified; D64.9 Anemia, unspecified; R73.01 Impaired fasting glucose; E53.8 Deficiency of other specified B group vitamins
CPT/HCPCS: 36415; 80053; 82306; 82607; 82746; 83036; 84439; 84443; 84480; 85025

== ENCOUNTER 2024-06-17 10:53 | Outpatient (REF) | payer OTHER, SELFPAY ==
[2024-06-17 12:20] LABS: Appearance Urine Cloudy; Color Urine Yellow; Glucose Urine UA Negative (Negative); Leukocyte Esterase Urine Trace (Negative); Nitrite Urine Negative (Negative); PH 5.5 (5.0-9.0); Specific Gravity - Urine >= 1.030 (1.005-1.025); UMIC TRIGGER UACC YES; Urine Blood Negative (Negative); Urine Ketones Negative (Negative); Urine Protein Negative (Neg-Trace)
[2024-06-17 12:47] LABS: Bacteria Urine 4+ (None Seen); Hyaline Casts Urine 0-2 /LPF (0-2); UACC Culture Trigger YES
== END 2024-06-17 10:54 | disposition home or self-care (01) ==
LOC: HO.LNP 10:53
PROVIDERS: Visit Provider Internal Medicine
DX: R30.0 Dysuria (principal); R53.83 Other fatigue
CPT/HCPCS: 81001; 81003; 87086

== ENCOUNTER 2024-08-12 09:39 | Outpatient (AMB) | payer OTHER, SELFPAY ==
--- OUTSIDE RECORDS SUMMARY | 2024-08-12 09:41 | XMS_ITS | Clinical Summary ---
Author Organization [facility] Address [address] [place] [address] Phone Care Team Providers Care Dinkey Motor Operator Name Role Phone Henrique Soler MD Primary Care Provider Allergies Active Allergy Reactions Criticality Noted Date Comments Acetaminophen Rash 07/18/2015 Acetaminophen-Codeine Rash 07/10/2015 Codeine Rash 07/10/2015 Ibuprofen Rash 07/10/2015 Montelukast 07/18/2015 Oxycodone Rash 07/10/2015 Propoxyphene Rash 07/10/2015 Tramadol Rash 07/10/2015 Medications Medication Sig Dispensed Refills Start Date End Date Status Ventolin HFA 90 mcg/actuation inhaler 05/03/2024 Active buPROPion SR (WELLBUTRIN SR) 100 mg 12 hr tablet 04/30/2024 Active busPIRone (BUSPAR) 10 mg tablet 04/01/2024 Active cefpodoxime (VANTIN) 200 mg tablet 10/27/2023 Active Active Problems Problem Noted Date Diagnosed Date Anxiety 05/18/2024 Depression 05/18/2024 Fibromyalgia 05/18/2024 GERD (gastroesophageal reflux disease) Vitamin D deficiency 05/18/2024 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 Thumb pain, right 08/26/2017 Overview (05/18/2024): Last Assessment & Plan: 08/26/2017 - depo-medrol 20 mg injection Encounters Date Type Department Care Team Description 05/18/2024 4:28 PM EST - 05/18/2024 9:25 PM EST Emergency [facility] Emergency [address] [place] [address] Ruben Henderson MD Fall, initial encounter (Primary Dx) Discharge Disposition: Home or Self Care from Last 3 Months Surgical History Surgery Date Site/Laterality Comments BACK SURGERY PROCEDURE: HISTORICAL BACK SURGERY HYSTERECTOMY PROCEDURE: HISTORICAL HYSTERECTOMY; COMMENT: w BSO in 3 separate surgeries SECTION PROCEDURE: HISTORICAL BREAST BIOPSY 2013? Left PROCEDURE: BX BREAST; PERC NEEDLE CORE W/IMAG GUID; COMMENT: neg Medical History Medical History Date Comments Vitamin D deficiency DX:Vitamin D deficiency Fibromyalgia DX:Fibromyalgia Depression DX:Depression Anxiety DX:Anxiety GERD (gastroesophageal reflux disease) DX:GERD (gastroesophageal reflux disease) Family History Medical History Relation Name Comments Breast cancer Neg Hx Social History Tobacco Use Types Packs/Day Years Used Date Smoking Tobacco: Never Smokeless Tobacco: Never Alcohol Use Standard Drinks/Week Comments Yes 0 (1 standard drink = 0.6 oz pur e alcohol) Sex and Gender Information Value Date Recorded Sex Assigned at Female 05/18/2024 4:41 PM EST Gender Identity Female 05/18/2024 4:41 PM EST Sexual Orientation Straight 05/18/2024 4: 41 PM EST Job Start Date Occupation Industry Not on file Not on file Not on file Obstetrics History Last Filed Vital Signs Vital Sign Reading Time Taken Comments Blood Pressure 114/48 05/18/2024 7:24 PM EST Pulse 73 05/18/2024 7:24 PM EST Temperature 36.7 ??C (98 ??F) 05/18/2024 4:44 PM EST Respiratory Rate 15 05/18/2024 7:24 PM EST Oxygen Saturation 96% 05/18/2024 7:24 PM EST Inhaled Oxygen Concentration - - Weight 99.8 kg (220 lb) 05/18/2024 6:48 PM EST Height 167.6 cm (5' 6 ) 05/18/2024 6:48 PM EST Body Mass Index 35.51 05/18/2024 6:48 PM EST Plan of Treatment Health Maintenance Due Date Last Done Comments Zoster Vaccines (1 of 2) 2006 Breast Cancer Screening 09/02/2019 09/02/2017 Colorectal Cancer Screening: Stool Based Tests (FOBT/FIT) 06/09/2022 Depression Screening 06/09/2022 Falls Risk Assessment 06/09/2022 Hepatitis C Screening 06/09/2022 Medicare Annual Wellness Visit 06/09/2022 Osteoporosis Screening (Bone Density Screening) 06/09/2022 Social Influencers of Health Screening 06/09/2022 COVID-19 Vaccine ( - season) 2024 Influenza Vaccine (#1) 2024 2, 04/09/2021, 09/15/2020, Additional history exists Pneumococcal Vaccine: 65+ Years (3 of 3 - PPSV23 or PCV20) 09/28/2025 09/28/2020, 02/19/2015 DTaP,Tdap,and Td Vaccines (3 - Td or Tdap) 09/23/2026 09/23/2016, 04/15/2016 RSV Immunization Patients 60+ Years Old (1 - 1-dose 75+ series) 12/31/2031 HIB Vaccines Aged Out No longer eligi ble based on patient's age to complete this topic HPV Vaccines Aged Out No longer eligi ble based on patient's age to complete this topic Hepatitis A Vaccines Aged Out No long er eligible based on patient's age to complete this topic Hepatitis B Vaccines Aged Out No long er eligible based on patient's age to complete this topic IPV Vaccines Aged Out No longer eligi ble based on patient's age to complete this topic MMR Vaccines Aged Out No longer eligi ble based on patient's age to complete this topic Meningococcal ACWY Vaccine Aged Out N o longer eligible based on patient's age to complete this topic RSV Immunization Patients Under 20 months Aged Out No longer eligible based on patient's age to complete this topic Varicella Vaccines Aged Out No longer eligible based on patient's age to complete this topic Procedures Procedure Name Priority Date/Time Associated Diagnosis Comments CBC WITH AUTO DIFFERENTIAL STAT 05/18/2024 6:14 PM EST COMPREHENSIVE METABOLIC PANEL STAT 05/18/2024 6:14 PM EST CBC AND DIFFERENTIAL STAT 05/18/2024 6:14 PM EST XR HIP 2-3 VIEWS LEFT STAT 05/18/2024 5:37 PM EST XR SHOULDER 2+ VIEWS LEFT STAT 05/18/2024 5:37 PM EST XR SACRUM COCCYX 2+ VIEWS STAT 05/18/2024 5:37 PM EST XR LUMBAR SPINE 2-3 VIEWS STAT 05/18/2024 5:37 PM EST SCR MAMMO BI INCL CAD Routine 09/02/2017 2:11 PM EST Encounter for screening mammogram for malignant neoplasm of breast from Last 3 Months or Most Recently Relevant to Health Maintenance Results * CBC auto differential (05/18/2024 6:14 PM EST) WBC 6.0 4.8 - 10.8 K/mcL LAB HEMETOLOGY METHOD 05/18/2024 6:33 PM [facility] RBC 4.60 3.80 - 4.80 M/mcL LAB HEMETOLOGY METHOD 05/18/2024 6:33 PM [facility] Hemoglobin 13.4 11.5 - 16.0 g/dL LAB HEMETOLOGY METHOD 05/18/2024 6:33 PM [facility] Hematocrit 41.9 35.0 - 47.0 % LAB HEMETOLOGY METHOD 05/18/2024 6:33 PM [facility] MCV 91.7 79.0 - 98.0 FL LAB HEMETOLOGY METHOD 05/18/2024 6:33 PM [facility] MCH 29.3 27.0 - 32.0 pcg LAB HEMETOLOGY METHOD 05/18/2024 6:33 PM [facility] MCHC 32.0 32.0 - 37.0 g/dL LAB HEMETOLOGY METHOD 05/18/2024 6:33 PM [facility] RDW 13.8 11.0 - 15.0 % LAB HEMETOLOGY METHOD 05/18/2024 6:33 PM [facility] Platelets 209 130 - 400 K/mcL LAB HEMETOLOGY METHOD 05/18/2024 6:33 PM [facility] MPV 11.0 7.0 - 11.0 FL LAB HEMETOLOGY METHOD 05/18/2024 6:33 PM [facility] NRBC 0.0 <1.0 % LAB HEMETOLOGY METHOD 05/18/2024 6:33 PM [facility] NRBC Absolute 0.00 <0.10 K/mcL LAB HEMETOLOGY METHOD 05/18/2024 6:33 PM [facility] Neutrophils Relative 36.2 % LAB HEMETOLOGY METHOD 05/18/2024 6:33 PM [facility] Lymphocytes Relative 49.1 % LAB HEMETOLOGY METHOD 05/18/2024 6:33 PM [facility] Monocytes Relative 10.4 % LAB HEMETOLOGY METHOD 05/18/2024 6:33 PM [facility] Eosinophils Relative 3.5 % LAB HEMETOLOGY METHOD 05/18/2024 6:33 PM [facility] Basophils Relative 0.5 % LAB HEMETOLOGY METHOD 05/18/2024 6:33 PM [facility] Immature Granulocytes Relative 0.3 % LAB HEMETOLOGY METHOD 05/18/2024 6:33 PM [facility] Neutrophils Absolute 2.16 1.50 - 7.00 K/mcL LAB HEMETOLOGY METHOD 05/18/2024 6:33 PM [facility] Lymphocytes Absolute 2.93 1.00 - 5.00 K/mcL LAB HEMETOLOGY METHOD 05/18/2024 6:33 PM [facility] Monocytes Absolute 0.62 0.20 - 1.00 K/mcL LAB HEMETOLOGY METHOD 05/18/2024 6:33 PM [facility] Eosinophils Absolute 0.21 0.00 - 0.50 K/mcL LAB HEMETOLOGY METHOD 05/18/2024 6:33 PM EST [facility] Basophils Absolute 0.03 0.00 - 0.20 K/mcL LAB HEMETOLOGY METHOD 05/18/2024 6:33 PM EST [facility] Immature Granulocytes Absolute 0.02 0.00 - 0.03 K/mcL LAB HEMETOLOGY METHOD 05/18/2024 6:33 PM EST [facility] Blood Venous blood specimen / Unknown Venipuncture / Unknown 05/18/2024 6:14 PM EST 05/18/2024 6:18 PM EST Ruben Henderson MD LAB BLOOD ORDERAB LES [facility] [address] [place] [address], [place] [phone] * (ABNORMAL) Comprehensive metabolic panel (05/18/2024 6:14 PM EST) Sodium 141 133 - 145 mmol/L LAB CHEMISTRY METHOD 05/18/2024 6:47 PM [facility] Potassium 4.5 3.5 - 5.5 mmol/L LAB CHEMISTRY METHOD 05/18/2024 6:47 PM [facility] Chloride 107 96 - 110 mmol/L LAB CHEMISTRY METHOD 05/18/2024 6:47 PM [facility] CO2 31 21 - 32 mmol/L LAB CHEMISTRY METHOD 05/18/2024 6:47 PM [facility] Anion Gap 3 3 - 11 LAB CHEMISTRY METHOD 05/18/2024 6:47 PM [facility] Glucose 144(H) 70 - 100 mg/dL LAB CHEMISTRY METHOD 05/18/2024 6:47 PM [facility] BUN 16 5 - 25 mg/dL LAB CHEMISTRY METHOD 05/18/2024 6:47 PM [facility] Creatinine 1.06 0.50 - 1.10 mg/dL LAB CHEMISTRY METHOD 05/18/2024 6:47 PM [facility] eGFR 58(L) >=60 mL/min/1. 73m2 LAB CHEMISTRY METHOD 05/18/2024 6:47 PM [facility] Comment:Calculation based on the??Chronic Kidney Disease Epidemiology Collaboration (CKD-EPI) equation refit??without adjustment for race. BUN/Creatinine Ratio 15.1 LAB CHEMISTRY METHOD 05/18/2024 6:47 PM [facility] Calcium 9.1 8.5 - 10.5 mg/dL LAB CHEMISTRY METHOD 05/18/2024 6:47 PM [facility] AST (SGOT) 14 10 - 42 unit/L LAB CHEMISTRY METHOD 05/18/2024 6:47 PM [facility] ALT (SGPT) 16 10 - 60 unit/L LAB CHEMISTRY METHOD 05/18/2024 6:47 PM [facility] Alkaline Phosphatase 83 42 - 121 unit/L LAB CHEMISTRY METHOD 05/18/2024 6:47 PM [facility] Total Protein 6.8 6.0 - 8.0 g/dL LAB CHEMISTRY METHOD 05/18/2024 6:47 PM [facility] Albumin 3.4 3.2 - 5.0 g/dL LAB CHEMISTRY METHOD 05/18/2024 6:47 PM [facility] Total Bilirubin 0.2 0.0 - 1.4 mg/dL LAB CHEMISTRY METHOD 05/18/2024 6:47 PM [facility] Blood Venous blood specimen / Unknown Venipuncture / Unknown 05/18/2024 6:14 PM EST 05/18/2024 6:18 PM EST Ruben Henderson MD LAB BLOOD ORDERAB LES [facility] [address] [place] [address], * XR Hip 2-3 Views Left (05/18/2024 5:37 PM EST) Anatomical Region Laterality Modality Lower Extremities, Hip Left Radiograp hic Imaging 05/19/2024 8:44 AM EST Impressions 05/19/2024 8:45 AM EST FINDINGS/IMPRESSION: No acute fracture or dislocation. ??Mild degenerative changes at the hips. ??No focal soft tissue swelling. -------- FINAL REPORT -------- Dictated By: FIDENCIO CUEVAS Dictated Date: 05/19/2024 08:44 ET Assigned Physician: FIDENCIO CUEVAS Reviewed and Electronically Signed By: FIDENCIO CUEVAS Signed Date: 05/19/2024 08:45 ET Workstation ID: [id number] Transcribed By: Self Edit Transcribed Date: 05/19/2024 08:44 ET Narrative 05/19/2024 8:45 AM EST XR HIP 2-3 VIEWS LEFT INDICATION: ??Fall, pain TECHNIQUE: XR HIP 2-3 VIEWS LEFT COMPARISON: No priors available. Procedure Note Fidencio Cuevas MD - 05/19/2024 XR HIP 2-3 VIEWS LEFT INDICATION: Fall, pain TECHNIQUE: XR HIP 2-3 VIEWS LEFT COMPARISON: No priors available. IMPRESSION: FINDINGS/IMPRESSION: No acute fracture or dislocation. Mild degenerativechanges at the hips. No focal soft tissue swelling. -------- FINAL REPORT -------- Dictated By: FIDENCIO CUEVAS Dictated Date: 05/19/2024 08:44 ET Assigned Physician: FIDENCIO CUEVAS Reviewed and Electronically Signed By: FIDENCIO CUEVAS Signed Date: 05/19/2024 08:45 ET Workstation ID: [id number] Transcribed By: Self Edit Transcribed Date: 05/19/2024 08:44 ET Ruben Henderson MD IMG XR PROCEDURES * XR Shoulder 2+ Views Left (05/18/2024 5:37 PM EST) Anatomical Region Laterality Modality Upper Extremities, Shoulder Left Radi ographic Imaging 05/19/2024 8:30 AM EST Impressions 05/19/2024 8:31 AM EST No acute findings. ??There is mild osteoarthritis of the acromioclavicular and glenohumeral joints. ??The patient is seen to have undergone previous left shoulder surgery. Code 70467 CT Teleradiology -------- FINAL REPORT -------- Dictated By: Paolo Mcgowan Dictated Date: 05/19/2024 08:30 ET Assigned Physician: Paolo Mcgowan Reviewed and Electronically Signed By: Paolo Mcgowan Signed Date: 05/19/2024 08:31 ET Workstation ID: [id number] Transcribed By: Self Edit Transcribed Date: 05/19/2024 08:30 ET Narrative 05/19/2024 8:31 AM EST HISTORY: The patient is a 68-year-old female with left shoulder pain following a fall. FINDINGS: AP, left posterior oblique, and transscapular views of the left shoulder are obtained. ??No prior study is available for comparison. ??3 surgical anchors are present in the humeral head. ??There is no fracture, dislocation, or osteolytic or osteoblastic lesion. ??There is mild osteoarthritis of the acromioclavicular and glenohumeral joints with small marginal osteophytes. ??No soft tissue abnormality is seen. Procedure Note Paolo Mcgowan MD - 05/19/2024 HISTORY: The patient is a 68-year-old female with left shoulder painfollowing a fall. FINDINGS: AP, left posterior oblique, and transscapular views of the leftshoulder are obtained. No prior study is available for comparison. 3surgical anchors are present in the humeral head. There is no fracture,dislocation, or osteolytic or osteoblastic lesion. There is mildosteoarthritis of the acromioclavicular and glenohumeral joints with smallmarginal osteophytes. No soft tissue abnormality is seen. IMPRESSION: No acute findings. There is mild osteoarthritis of the acromioclavicularand glenohumeral joints. The patient is seen to have undergone previousleft shoulder surgery. Code 86495 CT Teleradiology -------- FINAL REPORT -------- Dictated By: Paolo Mcgowan Dictated Date: 05/19/2024 08:30 ET Assigned Physician: Paolo Mcgowan Reviewed and Electronically Signed By: Paolo Mcgowan Signed Date: 05/19/2024 08:31 ET Workstation ID: [id number] Transcribed By: Self Edit Transcribed Date: 05/19/2024 08:30 ET Ruben Henderson MD IMG XR PROCEDURES * XR Sacrum Coccyx 2+ Views (05/18/2024 5:37 PM EST) Anatomical Region Laterality Modality Body, Spine, Pelvis Radiographic Imaging 05/19/2024 8:46 AM EST Impressions 05/19/2024 8:51 AM EST FINDINGS/IMPRESSION: No acute fracture. ??Sacroiliac joints are normal. ??Lower lumbar predominant facet arthritis. ??No focal soft tissue swelling. -------- FINAL REPORT -------- Dictated By: FIDENCIO CUEVAS Dictated Date: 05/19/2024 08:46 ET Assigned Physician: FIDENCIO CUEVAS Reviewed and Electronically Signed By: FIDENCIO CUEVAS Signed Date: 05/19/2024 08:51 ET Workstation ID: [id number] Transcribed By: Self Edit Transcribed Date: 05/19/2024 08:46 ET Narrative 05/19/2024 8:51 AM EST XR SACRUM COCCYX 2+ VIEWS INDICATION: ??Pain, fall TECHNIQUE: XR SACRUM COCCYX 2+ VIEWS COMPARISON: No priors available. Procedure Note Fidencio Cuevas MD - 05/19/2024 XR SACRUM COCCYX 2+ VIEWS INDICATION: Pain, fall TECHNIQUE: XR SACRUM COCCYX 2+ VIEWS COMPARISON: No priors available. IMPRESSION: FINDINGS/IMPRESSION: No acute fracture. Sacroiliac joints are normal.Lower lumbar predominant facet arthritis. No focal soft tissue swelling. -------- FINAL REPORT -------- Dictated By: FIDENCIO CUEVAS Dictated Date: 05/19/2024 08:46 ET Assigned Physician: FIDENCIO CUEVAS Reviewed and Electronically Signed By: FIDENCIO CUEVAS Signed Date: 05/19/2024 08:51 ET Workstation ID: [id number] Transcribed By: Self Edit Transcribed Date: 05/19/2024 08:46 ET Ruben Henderson MD IMG XR PROCEDURES * XR Lumbar Spine 2-3 Views (05/18/2024 5:37 PM EST) Anatomical Region Laterality Modality Spine, L-spine Radiographic Sandra ging 05/19/2024 8:38 AM EST Impressions 05/19/2024 8:44 AM EST FINDINGS/IMPRESSION: Prior posterior fusion at L2-3. ??Lumbar lordosis is preserved. ??No fracture. ??Multilevel degenerative endplate irregularity with lower lumbar predominant facet arthritis. ??Fusion hardware is intact. -------- FINAL REPORT -------- Dictated By: FIDENCIO CUEVAS Dictated Date: 05/19/2024 08:38 ET Assigned Physician: FIDENCIO CUEVAS Reviewed and Electronically Signed By: FIDENCIO CUEVAS Signed Date: 05/19/2024 08:44 ET Workstation ID: [id number] Transcribed By: Self Edit Transcribed Date: 05/19/2024 08:38 ET Narrative 05/19/2024 8:44 AM EST XR LUMBAR SPINE 2-3 VIEWS INDICATION: ??Pain TECHNIQUE: XR LUMBAR SPINE 2-3 VIEWS COMPARISON: No priors available. Procedure Note Fidencio Cuevas MD - 05/19/2024 XR LUMBAR SPINE 2-3 VIEWS INDICATION: Pain TECHNIQUE: XR LUMBAR SPINE 2-3 VIEWS COMPARISON: No priors available. IMPRESSION: FINDINGS/IMPRESSION: Prior posterior fusion at L2-3. Lumbar lordosis ispreserved. No fracture. Multilevel degenerative endplate irregularitywith lower lumbar predominant facet arthritis. Fusion hardware is intact. -------- FINAL REPORT -------- Dictated By: FIDENCIO CUEVAS Dictated Date: 05/19/2024 08:38 ET Assigned Physician: FIDENCIO CUEVAS Reviewed and Electronically Signed By: FIDENCIO CUEVAS Signed Date: 05/19/2024 08:44 ET Workstation ID: [id number] Transcribed By: Self Edit Transcribed Date: 05/19/2024 08:38 ET Ruben Henderson MD IMG XR PROCEDURES * SCR MAMMO BI INCL CAD (09/02/2017 2:11 PM EST) Anatomical Region Laterality Modality Radiographic Sandra ging 08/13/2016 1:19 PM EST Narrative 09/03/2017 12:12 PM EST This is a summary report. The complete report is available in the patient's medical record. If you cannot access the medical record, please contact the sending organization for a detailed fax or copy. Full field digital screening mammography, reviewed with CAD and compared to previous. ??The breasts are composed of fatty and fibroglandular tissue. ??Small metallic biopsy clip is stable in position at the anterior one third of the medial left breast. No suspicious mass, architectural distortion or suspicious calcifications are identified. IMPRESSION: : No mammographic evidence of malignancy. BIRADS 1-Negative; N. 5 year breast cancer risk assessment 0.9 % Lifetime breast cancer risk assessment 4.7 % Breast cancer risk category Low (<15%) Procedure Note Liz Chang, DO - 08/08/2023 This is a summary report. The complete report is available in thepatient's medical record. If you cannot access the medical record, pleasecontact the sending organization for a detailed fax or copy. Full field digital screening mammography, reviewed with CAD and comparedto previous. The breasts are composed of fatty and fibroglandular tissue.Small metallic biopsy clip is stable in position at the anterior onethird of the medial left breast. No suspicious mass, architecturaldistortion or suspicious calcifications are identified. IMPRESSION: : No mammographic evidence of malignancy. BIRADS 1-Negative; N. 5 year breast cancer risk assessment 0.9 % Lifetime breast cancer risk assessment 4.7 % Breast cancer risk category Low (<15%) Akil Hernandez MD IMG XR PROCEDUR ES from Last 3 Months or Most Recently Relevant to Health Maintenance Advance Directives Documents on File Type Date Recorded Patient Instructional Services Specialist Expl anation Health Care Decision (hx) 04/01/2016 AD TEE DIRECTIVE Health Care Decision (hx) 04/01/2016 AD TEE DIRECTIVE Health Care Decision (hx) 04/01/2016 AD TEE DIRECTIVE Health Care Decision (hx) 04/01/2016 AD TEE DIRECTIVE Health Care Decision (hx) 04/01/2016 AD TEE DIRECTIVE Health Care Decision (hx) 04/01/2016 AD TEE DIRECTIVE Health Care Decision (hx) 04/01/2016 AD TEE DIRECTIVE Health Care Decision (hx) 04/01/2016 AD TEE DIRECTIVE Health Care Decision (hx) 04/01/2016 AD TEE DIRECTIVE Health Care Decision (hx) 04/01/2016 AD TEE DIRECTIVE Health Care Decision (hx) 04/01/2016 AD TEE DIRECTIVE Health Care Decision (hx) 04/01/2016 AD TEE DIRECTIVE Health Care Decision (hx) 04/01/2016 AD TEE DIRECTIVE Health Care Decision (hx) 04/01/2016 AD TEE DIRECTIVE Health Care Decision (hx) 04/01/2016 AD TEE DIRECTIVE Health Care Decision (hx) 04/01/2016 AD TEE DIRECTIVE Health Care Decision (hx) 04/01/2016 AD TEE DIRECTIVE Health Care Decision (hx) 04/01/2016 AD TEE DIRECTIVE Health Care Decision (hx) 04/01/2016 AD TEE DIRECTIVE Health Care Decision (hx) 04/01/2016 AD TEE DIRECTIVE Health Care Decision (hx) 04/01/2016 AD TEE DIRECTIVE Health Care Decision (hx) 04/01/2016 AD TEE DIRECTIVE Health Care Decision (hx) 04/01/2016 AD TEE DIRECTIVE Health Care Decision (hx) 04/01/2016 AD TEE DIRECTIVE Health Care Decision (hx) 04/01/2016 HARRISON TEE DIRECTIVE Care Teams Dinkey Motor Operator Relationship Specialty Start Date End Date Henrique Soler MD [address] [place] [address] [address] [place] PCP - General Internal Medicine 06/18/14
--- OUTSIDE RECORDS SUMMARY | 2024-08-12 09:41 | XMS_ITS | Encounter Summary ---
Author Organization [facility] Address [address] [place] [address] Care Team Providers Care Materials And Processes Manager Name Role Phone Bennie Yang MD Primary Care Provider [phone] Henrique Soler MD Primary Care Provider Unava ilable Encounter Details Date Type Department Care Team Description 08/16/2016 Business Doc Medical Records [address] [place], [place] [id number] Abstract, Provider Social History Tobacco Use Types Packs/Day Years Used Date Smoking Tobacco: Never Cigarettes Smokeless Tobacco: Never Alcohol Use Standard Drinks/Week Comments Yes 0 (1 standard drink = 0.6 oz pur e alcohol) holidays Sex Assigned at Date Recorded Not on file documented as of this encounter Plan of Treatment Not on file documented as of this encounter Visit Diagnoses Not on filedocumented in this encounter Care Teams Materials And Processes Manager Relationship Specialty Start Date End Date Bennie Yang MD [address] [place], [place] [id number] PCP - General Internal Medicine 06/19/15 03/31/18 Henrique Soler MD [address] [place], [place] [id number] PCP - General Internal Medicine 04/01/18 documented as of this encounter
--- OUTSIDE RECORDS SUMMARY | 2024-08-12 09:41 | XMS_ITS | Encounter Summary ---
Author Organization [facility] Address [address] [place] [address] Care Team Providers Care Stogy Roller Name Role Phone Henrique Soler MD Primary Care Provider Marcia wiley Encounter Details Date Type Department Care Team Description 05/07/2023 SCAN Medical Records [address], [place] [id number] [place] [address], [facility] Social History Tobacco Use Types Packs/Day Years Used Date Smoking Tobacco: Never Cigarettes Smokeless Tobacco: Never Alcohol Use Standard Drinks/Week Comments Yes 0 (1 standard drink = 0.6 oz pur e alcohol) holidays Sex Assigned at Date Recorded Not on file COVID-19 Exposure Response Date Recorded In the last 10 days, have yo u been in contact with someone who was confirmed or suspected to have Coronavirus/COVID-19? No / Unsure 04/30/2023 8:37 AM EDT documented as of this encounter Plan of Treatment Not on file documented as of this encounter Visit Diagnoses Not on filedocumented in this encounter Care Teams Stogy Roller Relationship Specialty Start Date End Date Henrique Soler MD PCP - General Internal Medicine 04/01/18 documented as of this encounter
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
--- OUTSIDE RECORDS SUMMARY | 2024-08-12 09:42 | XMS_ITS | Data Portability ---
Author Organization [facility], Main Office Address [address] [facility] [facility], [address] [place] [address] Care Team Providers Care Combination Window Installer Name Role Phone BLAZE PATTEN [facility] F[facility] OTHER Assessment Encounter Date Assessment Date Assessment LastModified by Organization Details LastModified Time 11/22/2020 11/22/2020 11/21/20 WBC 5.5, Hgb 13, Hct 40.7, Plt 278, Na 141, K 4.6, BUN 11, Peritoneal Dialysis Registered Nurse 0.72, karri 8.8 11/15/20 WBC 5.4, Hgb 13.2, Hct 41.3, Plt 291, Na 138, K 4.3, BUN 17, Peritoneal Dialysis Registered Nurse 1.06, karri 8.6, tot prot 6.9, alb 3.2, tot bili 0.2, AST 19, ALT 24, alk phos 125 [email or web address] Not available 11/22/2020 10:14:01 11/20/2023 11/20/2023 11/15/20 WBC 5.4, Hgb 13.2, Hct 41.3, Plt 291, Na 138, K 4.3, BUN 17, Peritoneal Dialysis Registered Nurse 1.06, karri 8.6, tot prot 6.9, alb 3.2, tot bili 0.2, AST 19, ALT 24, alk phos 125 Not available 11/20/2023 08:21:55 11/21/2023 11/21/2023 11/15/20 WBC 5.4, Hgb 13.2, Hct 41.3, Plt 291, Na 138, K 4.3, BUN 17, Peritoneal Dialysis Registered Nurse 1.06, karri 8.6, tot prot 6.9, alb [...] and Address Organization Details Recorded Time Falls 338436465 Active 2020 [address]ANA [address], [address], [place], [address], [facility] 1 09:16:33 Injury of rotator cuff 790444175 Active 2020 LYLE SANTANA [address], [address], [place], [address], [facility] [employer] 1 09:17:03 Anxiety 07265281 Active 2020 LYLE SANTANA [address], [address], [place], [address], [facility] [employer] 1 09:19:26 Asthma 199439199 Active 2020 LYLE SANTANA [address], [address], [place], [address], [facility] 1 09:19:37 Depressive disorder 93112437 Active 2020 LYLE SANTANA [address], [address], [place], [address], [facility] [employer] 1 09:19:46 Fibromyalgia 656608584 Active 2020 LYLE SANTANA [address], [address], [place], [address], [facility] [employer] 1 09:19:57 Chronic low back pain 994462935 Active 2020 LYLE SANTANA [address], [address], [place], [address], [facility] 1 09:23:26 Non-toxic multinodular goiter 91841017 Active 2020 LYLE SANTANA [address], [address], [place], [address], [facility] 1 09:31:03 Gastroesophage al reflux disease without esophagitis 724697705 Active 2020 LYLE SANTANA [address], [address], [place], [address], [facility] 1 17:45:05 Vitamin D deficiency 97173640 Active 2020 LYLE SANTANA [address], [address], [place], [address], [facility] 1 17:50:09 Obesity 334420478 Active 2020 Danny Mcarthur MD [address], [address], [place], [address], [facility] 1 10:03:21 Vertigo 864856592 Active 2020 LYLE SANTANA [address], [address], [place], [address], [facility] 1 22:04:34 Osteoarthritis of knee 708946327 Active 2020 LYLE SANTANA [address], [address], [place], [address], [facility] 1 09:11:19 Asthenia 65370084 Active 2023 Araceli Mendoza NP [address], [address], [place], [address], [facility] 4 08:59:56 Problem Notes None recorded. Procedures Surgical History Date Name Laterality Status Provider Name and Address Organization Details Recorded Time 07/18/19 21 complete repair of rotator cuff completed LYLE SANTANA [address], [address], [place], [address], [facility] 09/15/2020 17:42:10 cholecystectomy completed SIMRANSA HOUSTON, FOREIGN SERVICE TEACHER [address], [address], [place], [address], [facility] [employer] [facility] 09/15/2020 09:26:25 Hysterectomy completed SIMRANSA HOUSTON, FOREIGN SERVICE TEACHER [address], [address], [place], [address], [facility] [employer] [facility] 09/15/2020 09:28:09 laminectomy completed SIMRANSA HOUSTON, FOREIGN SERVICE TEACHER [address], [address], [place], [address], [facility] [employer] [facility] 09/15/2020 09:29:37 Imaging Results None recorded. Procedure Notes None recorded. Medical Equipment None Reported. Allergies Allergen ID Allergen Name Allergen Category Reaction Reaction Severity Criticality Documentation Date Start Date Code Code System Note Provider Name and Address Organization Details Recorded Time 05862 codeine medicatio n rash Not available Not available 09/15/2020 2670 RxNorm Not Available Not Available Not Available 42888 morphine medicatio n rash Not available Not available 09/15/2020 7052 RxNorm Not Available Not Available Not Available 77669 Nubain medicatio n rash Not available Not available 09/15/2020 7550 RxNorm Not Available Not Available Not Available 47832 oxycodone medicatio n rash Not available Not available 09/15/2020 7804 RxNorm Not Available Not Available Not Available 35282 propoxyph leonel medicatio n rash Not available Not available 09/15/2020 8785 RxNorm Not Available Not Available Not Available 75601 Ultram medicatio n rash Not available Not available 09/15/2020 24674 6 RxNorm Not Available Not Available Not Available 90745 ibuprofen medicatio n rash Not available Not available 09/15/2020 5640 RxNorm Not Available Not Available Not Available 81621 Singulair medicatio n Not available Not available Not available 09/15/2020 14888 9 RxNorm Not Available Not Available Not Available [address] medicatio n Not available Not available [facility] 11/20/2023 63963 RxNorm Not Available Not Available Not Available 76200 acetamino phen medicatio n other Not available [facility] 11/20/2023 161 RxNorm unkno wn Not Available Not Available Not Available 69492 hydromorp philip medicatio n other Not available unabletoasse 11/20/2023 3423 RxNorm Not Available Not Available Not Available Vitals Date Recorded Body weight Heart rate Respiratory rate Body temperature Oxygen saturation Oxygen saturation in Arterial blood by Pulse oximetry Systolic blood pressure Diastolic blood pressure Provider Name and Address Organization Details Last Updated DateTime 4 34574.4 g 64 /min 18 /min 96 [degF] 95 % 95 % 113 mm[Hg] 72 mm[Hg] Araceli Mendoza NP [address] [facility], [address], [place], [address], [facility] 4 08:22:52 Date Recorded Body weight Body mass index (BMI) Body height Heart rate Respiratory rate Body temperature Oxygen saturation Oxygen saturation in Arterial blood by Pulse oximetry Systolic blood pressure Diastolic blood pressure Provider Name and Address Organization Details Last Updated DateTime 4 63897.1 9 g 34 kg/m2 167.64 cm 80 /min 18 /min 97.5 [degF] 93 % 93 % 124 mm[Hg] 78 mm[Hg] Jane Galvan MD [address] [facility], [address], [place], [address], [facility] 4 21:22:27 Date Recorded Oxygen saturation Oxygen saturation in Arterial blood by Pulse oximetry Body temperature Body weight Provider Name and Address Organization Details Last Updated DateTime 11/21/2020 99 % 99 % 97.8 [degF] 829525. 94 g LYLE SANTANA [address] [facility], [address], [place], [address], [facility] 1 19:41:18 Date Recorded Heart rate Respiratory rate Body temperature Oxygen saturation Oxygen saturation in Arterial blood by Pulse oximetry Provider Name and Address Organization Details Last Updated DateTime 1 69 /min 15 /min 98.2 [degF] 99 % 99 % LYLE SANTANA [address] [facility], [address], [place], [address], [facility] 1 10:24:20 Date Recorded Systolic blood pressure Diastolic blood pressure Provider Name and Address Organization Details Last Updated DateTime 11/20/2020 133 mm[Hg] 69 mm[Hg] Danny Mcarthur MD [address], [address], [place], [address], [facility] 11/20/2020 12:24:49 Social History Question Answer Notes LastModified by Organizat ion Details LastModified Time Tobacco Smoking Status Never Smoker LYLE SANTANA [address], [address], [place], [address], [facility] 09/15/2020 09:37:52 Do You Have An Advance [...] Do You Have A Medical Power Of Drug Safety Associate? Yes Information not available 11/21/2023 What Was [...] Organization Details Recorded Time Tdap 6 completed [facility] 11/20/2023 15:57:00 Tdap 7 completed Krystal Mateo [facility] 11/20/2023 15:57:07 Pneumococcal conjugate PCV 13 1 completed [facility] 11/20/2023 15:57:56 pneumococcal polysaccharide PPV23 5 completed [facility] 11/20/2023 15:58:14 influenza, unspecified formulation 2 completed [facility] 11/20/2023 15:58:35 Past Encounters Encounter ID Performer Location Encounter Start Date Encounter Closed Date Diagnosis/Indication Diagnosis SNOMED-CT Code Diagnosis ICD10 Code Diagnosis Note [id number] LYLE SANTANA [address] [address] 09/15/2020 09:05:35 09/19/2020 11:31:05 Falls 012402658 R29.6 PT/OT eval and treatmonit or for safety Injury of rotator cuff 676643151 S46.092S 09/12/20 revision-i nitial surgery 07/18/20wea r sling at all timespendu lums tidno liftingelb ow and wrist ROM okmeloxica m 15 mg qdtizanidi ne 4 mg tidadded methocarba mol 750 mg tid prn as she states this has worked better beforefoll ow up with ortho in 2 weeks (Dr Instrum) Anxiety 14844451 F41.1 ativan 0.5 mg tid prndiscuss ed risk vs benefit of ativan with ptmonitor anxietypsy ch eval and treat prn Asthma 463444667 J45.20 loratadine 10 mg qdalb hfa 90 mcg 2 puffs q 6 hrs prnmonitor for symptoms Depressive disorder 3548 9007 F32.89 citalopram 20 mg qdbupropio n SR 200 mg bid discussed risk vs benefit of citalopram and bupropion with ptmonitor mood Fibromyalgia 037414201 M 79.7 lyrica 150 mg tidnortrip tyline 25 mg bid discussed risk vs benefit of lyrica and nortriptyl ine with ptmonitor pain Chronic low back pain 27 3843936 M54.5 see above Non-toxic multinodular goiter 94839229 E04.2 noted in historymon itor Gastroesop hageal reflux disease without esophagitis 560251015 K21.9 pantoprazo le 40 mg qdmonitor for symptoms Vitamin D deficiency 347 76880 E56.8 vitamin D2 53557 units q weekmonito r levels [id number] LYLE SANTANA [facility] [address] [address] 09/18/2020 09:18:52 09/22/2020 08:57:21 Injury of rotator cuff 328604314 S46.092S 09/12/20 revision-i nitial surgery 07/18/20wea r sling at all timespendu lums tidno liftingelb ow and wrist ROM okmeloxica m 15 mg qdtizanidi ne 4 mg tid-will discontinu e as she states her methocarba mol works bettermeth ocarbamol 750 mg tid prnfollow up with ortho in 2 weeks (Dr Maharaj)- appt she is asking for a showerunab le to take shower due to covid isolation for 14 days Falls 542007434 R29.6 PT/OTmonit or for safety [id number] Danny Mcarthur MD [facility] [address] [address] 09/20/2020 09:45:42 09/22/2020 09:10:40 Falls 346234404 R29.6 PT/OT eval and treat monitor fall risk Injury of rotator cuff 970046510 S46.092S see HPI now s/p revision right rotator cuff surgery with initial completed in Jul 2020 follow surgery recs PT OT eval and treat monitor for pain control update surgery with concerns Anxiety 26400244 F41.1 see above monitor ativan utilizatio n psych eval prn Depressive disorder 3548 9007 F32.89 celexa 20 mg qd wellbutrin SR 200 mg bid continue out patient dose monitor for change in mood psych eval prn Fibromyalgia 857699459 M 79.7 see above maintained on lyrica and tricyclic antidepres gissel monitor for effect avoid opioids as able Chronic low back pain 27 5012403 M54.5 lyrica 150 mg tid continued monitor for effect Non-toxic multinodular goiter 41161606 E04.2 added to PMH Gastroesop hageal reflux disease without esophagitis 657450274 K21.9 pantoprazo le 40 mg qd monitor for sx relief Vitamin D deficiency 347 28897 E56.8 maintained on Vit D Obesity 391746691 E66.09 dietary eval [id number] LYLE SANTANA [facility] [address] [address] 09/25/2020 08:48:52 09/28/2020 12:59:06 Chronic low back pain 990986136 M54.5 states legs give out history of previous surgery appt made at [facility] on October 05, 2020 patient and PT/OT agrees with this Fibromyalgia 787612416 M 79.7 lyrica 150 mg tid nortriptyl ine 25 mg bid monitor pain [id number] LYLE SANTANA [facility] [address] [place] [address] 10/02/2020 08:43:59 10/04/2020 13:00:56 Injury of rotator cuff 378982182 S46.092S 09/12/20 revision-i nitial surgery 07/18/20 wear sling at all times pendulums tid no lifting PROM/AROM- no strength meloxicam 15 mg qd methocarba mol 750 mg tid prn follow up with ortho (Dr Maharaj)- Chronic low back pain 27 8037903 M54.5 appt made at [facility] on October 05, 2020 able to ambulate but when back is bothering her the right leg gives out will await recommenda salty [place] 069324789 R29.6 PT/OT monitor for safety reminders to use call redd [id number] LYLE SANTANA[address] [address] 10/09/2020 08:49:40 10/11/2020 15:15:25 Falls 582830988 R29.6 follow up with PCP Injury of rotator cuff 731800177 S46.092S 09/12/20 revision-i nitial surgery 07/18/20 wear sling at all times pendulums tid OK to shower PROM/AAROM no abduction >45 no external rotation no forward flexion >45 no strength meloxicam 15 mg qd tizanidine 4 mg tid methocarba mol 750 mg tid prn follow up with ortho (Dr Maharaj) on October 19 at 2:30 Anxiety 77796604 F41.1 ativan 0.5 mg tid prn follow up with PCP Asthma 852634724 J45.20 loratadine 10 mg qd alb hfa 90 mcg 2 puffs q 6 hrs prn follow up with PCP Depressive disorder 3548 9007 F32.89 citalopram 20 mg qd bupropion SR 200 mg bid follow up with PCP Fibromyalgia 807847285 M 79.7 lyrica 150 mg tid nortryptyl ine 25 mg bid follow up with PCP Chronic low back pain 27 8282194 M54.5 follow with [facility] on October 18 at 10:30 in [facility] Non-toxic multinodular goiter 46724357 E04.2 follow up with PCP Gastroesop hageal reflux disease without esophagitis 006202151 K21.9 pantoprazo le 40 mg qd follow up with PCP Vitamin D deficiency 347 71059 E56.8 vitamin D2 37488 units q week follow up with PCP Obesity 522155563 E66.8 follow up with PCP [id number] LYLE SANTANA [facility] [address] [place] [address] 11/15/2020 08:32:31 11/23/2020 16:01:37 Vertigo 095696165 R42 meclizine 25 mg tid prn work up done in hospital felt to be poly pharmacy-t osiel would like us to simplify her medication s monitor for improvemen t [place] 354421242 R29.6 PT/OT eval and treat monitor for safety Fibromyalgia 184579046 M 79.7 lyrica 150 mg tid nortryptyl ine 25 mg qd monitor Gastroesop hageal reflux disease without esophagitis 270245404 K21.9 pantoprazo le 40 mg qd monitor for symptoms Depressive disorder 3548 9007 F32.89 bupropion SR 200 mg bid monitor mood psych eval and treat prn Chronic low back pain 27 2802598 M54.5 neurontin 100 mg tid follow with [facility] Asthma 654410700 J45.20 loratadine 10 mg qd alb hfa 90 mcg 2 puffs q 6 hrs prn flovent hfa 110 mcg 1 puff bid monitor respirator y status Anxiety 38344647 F41.1 ativan 0.5 mg tid prn monitor Obesity 409288041 E66.8 monitor Vitamin D deficiency 347 43215 E56.8 vitamin D2 1250 mcg q week monitor levels Non-toxic multinodular goiter 18970970 E04.2 monitor Injury of rotator cuff 849107153 S46.092S 09/12/20 revision-i nitial surgery 07/18/20 meloxicam 15 mg qd tizanidine 4 mg tid prn monitor [id number] Danny Mcarthur MD [address] [address] 11/20/2020 12:24:00 11/23/2020 16:24:02 Vertigo 768891642 R42 see HPI eval by neuro in hospital medication s adjusted monitor on antivert 25 mg tid prn titrate prn question BPV consider liliana maneuver Falls 600663725 R29.6 PT/OT eval and treat monitor for safety Fibromyalgia 476104668 M 79.7 meds adjusted now off celexa monitor for change in presentati on Gastroesop hageal reflux disease without esophagitis 985603316 K21.9 pantoprazo le 40 mg qd monitor for sx relief Depressive disorder 3548 9007 F32.89 monitor with med adjustment s psych to eval prn Chronic low back pain 27 4901557 M54.5 known at baseline given above complaints monitor ability to reduce neurontin Anxiety 43545254 F41.1 stable on ativan see above Obesity 752440839 E66.8 dietary eval Non-toxic multinodular goiter 05275976 E04.2 added to PMH Pain in right knee 18327 86248 70104 M25.561 xray to eval monitor for change Vitamin D deficiency 347 23710 E56.8 maintained on Vit D [id number] LYLE SANTANA [facility] [address] [address] 11/21/2020 09:08:41 11/24/2020 09:26:16 Osteoarthritis of knee 782452270 M17.11 tylenol prn meloxicam 15 mg qd zanaflex 4 mg q 8 hrs prn nortriptyl ine 25 mg qd lyrica 150 mg tid neurontin 100 mg tid monitor [id number] LYLE SANTANA [facility] [address] [address] 11/22/2020 08:56:09 11/24/2020 09:35:24 Vertigo 650468240 R42 meclizine 25 mg tid prn work up done in hospital felt to be poly pharmacy-t osiel would like PCP to simplify her medication s follow up with PCP [place] 141217912 R29.6 follow up with PCP Fibromyalgia 857935448 M 79.7 lyrica 150 mg tid nortryptyl ine 25 mg qd follow up with PCP Gastroesop hageal reflux disease without esophagitis 746919655 K21.9 pantoprazo le 40 mg qd follow up with PCP Depressive disorder 3542 9007 F32.89 bupropion SR 200 mg bid follow up with PCP Chronic low back pain 27 5492034 M54.5 neurontin 100 mg tid follow with [facility] Asthma 668384320 J45.20 loratadine 10 mg qd alb hfa 90 mcg 2 puffs q 6 hrs prn flovent hfa 110 mcg 1 puff bid follow up with PCP Anxiety 71976053 F41.1 follow up with PCP Obesity 759296736 E66.8 follow up with PCP Vitamin D deficiency 347 03289 E56.8 vitamin D2 1250 mcg q week on friday follow up with PCP Non-toxic multinodular goiter 61528423 E04.2 follow up with PCP Injury of rotator cuff 360449294 S46.092S 09/12/20 revision-i nitial surgery 07/18/20 meloxicam 15 mg qd tizanidine 4 mg tid prn follow up with PCP [id number] Araceli Mendoza NP [facility] [address] [place] [address] 11/20/2023 08:21:31 11/24/2023 11:41:22 Vertigo 558284304 R42 meclizine 25 mg tid prnmonitor orthos q shift x 3 days, then bp dailymonit or for improvemen t [place] 997282607 R29.6 ct, xrays, ekg, labs neg for acute concerns PT/OT eval and [facility]labs [facility] Fibromyalgia 197054709 M 79.7 nortryptyl ine 25 mg bidlidocai ne patch on in am off in pmsee low back painmonito r Gastroesop hageal reflux disease without esophagitis 592342202 K21.9 pantoprazo le 40 mg qd monitor for symptoms Depressive disorder 3548 9007 F32.89 bupropion SR 200 mg bid monitor mood psych eval and treat prn Chronic low back pain 27 7746740 M54.50 with multiple drug allergiesl idocaine patch dailyflexe ril 10 mg po q 12 hours prn pain/spasm spt ot treat and evalfollow with [facility] outpt prn Asthma 185760638 J45.20 loratadine 10 mg qd monitor respirator y status Anxiety 87565900 F41.1 buspar 10 mg bidmonitor Obesity 121697621 E66.8 monitor weights and supportive aredietici an following Vitamin D deficiency 347 10663 E56.8 vitamin d3 2000 unit daily monitor levels Non-toxic multinodular goiter 09731568 E04.2 monitor Mixed anxi ety and depressive disorder 711735030 F41.8 buspar 10 mg bidbupropr ion 200 mg sr po bidduloxet ine 30 mg cap po bidmonitor Asthenia 42672430 R53.1 pt with weaknesspt ot eval and treatmonit or [id number] Jane Galvan MD [address] [address] 11/21/2023 21:16:22 11/26/2023 09:12:25 Vertigo 367292130 R42 Continue meclizine 25 mg TID prnNeeds PT/OT for strengthen ing, balance, gait training, safety and function.C ontinue fall precaution s.Monitor for safety.Mon itor orthostati c vitals. Falls 569165974 R29.6 As above. Asthenia 26717884 R53.1 As above. Fibromyalgia 432230339 M 79.7 Continue meds as above and nortryptyl ine 25 mg BID and duloxetine 30 mg BID.Monito r sxs. Gastroesop hageal reflux disease without esophagitis 005259976 K21.9 No current sxs. Continue pantoprazo le 40 mg qd Monitor for GI sxs. Chronic low back pain 27 4343067 M54.51 Failed back syndrome.C ontinue lidocaine patch qd, cyclobenza kyra 10 mg q 12 hrs prn and meds for fibromyalg ia as below.PT/O T eval and tx.F/U with [facility] as outpt Asthma 350148246 J45.20 No recent sxs. Not on inhalers. Continue loratadine 10 mg qd Monitor resp status. Mixed anxi ety and depressive disorder 948733578 F41.8 F32.89 Mood good tonight.Co ntinue Buspar 10 mg BID, buproprion 200 mg BID and duloxetine 30 mg BID.Monito r mood.Consu lt psych prn Obesity 219109949 E66.8 Continue to encourage healthy eating. tician consult Vitamin D deficiency 347 43303 E56.8 Continue cholecalci ferol 2000 IU qd.Monitor levels as outpt Non-toxic multinodular goiter 69718684 E04.2 Last TSH on 10/20/23 was 6.16 with nl FT4. F/U with PCP as outpt. Health Concerns Section Related Observation LastModified by Organization Detai ls LastModified Time None Recorded Concern Status LastModified by Organization Details LastModified Time None Recorded Advance Directives Directive Y: DNR/DNI/DNV-no non invasi ve ventilation/may transfer to hospital-no dialysis, nutrition but may use hydration Payers Encounter Date Sequence Insurance Name Policy Number Policy Maradiaga Covered Member ID Maradiaga Member ID Guarantor Name 11/20/2020 1 [facility] [employer] - DOS PRIOR TO 2022 - DUAL ELIGIBLE (MEDICARE REPLACEMENT/ADV ANTAGE - HMO) Latia Mcqueen [id number] Sabrina Mcqueen 11/21/2020 1 [employer] - DOS PRIOR TO 2022 - DUAL ELIGIBLE (MEDICARE REPLACEMENT/ADV ANTAGE - HMO) Latia Mcqueen [id number] Sabrina Mcqueen 11/22/2020 1 [facility] - DOS PRIOR TO 2022 - DUAL ELIGIBLE (MEDICARE REPLACEMENT/ADV ANTAGE - HMO) Latia Mcqueen [id number] Sabrina Mcqueen 11/20/2023 1 [facility] - DOS ON OR AFTER 2022 - MEDICARE [place]VANTAGE [place] (MEDICARE REPLACEMENT/ADV ANTAGE - PPO) Sabrina Mcqueen [id number] Sabrina Richar 11/21/2023 1 [facility] - DOS ON OR AFTER 2022 - [place] (MEDICARE REPLACEMENT/ADV ANTAGE - PPO) Sabrina Mcqueen [id number] Sabrina Mcqueen Notes Date Note Type Note [...] pain and swelling with imaging ordered to [facility] significant forgait instabilitydepressionchronic low back paingerdasthmafibromyalgiagait instability admit to facility for continued care and therapy Danny Mcarthur MD [address] [facility], [address], [place], [address], [facility] 11/20/2020 12:41:49 11/22/19 21 text/ht ml 64 year old female being seen for a acute rounding visit. Patient had a right knee x=ray for c/o right knee pain that revealed mild tricompartmental osteoarthritis and no acute abnormality. Will continue to monitor for pain. LYLE SANTANA [address] [facility], [address], [place], [address], [facility] 11/21/2020 19:43:26 11/23/19 21 text/ht ml A 64 year old female being seen for a discharge summary. Patient was brought to [facility] after her [facility] found her sitting in a chair in [...] injury to rotator cuff. LYLE SANTANA [address] [facility], [address], [place], [address], [facility] 11/22/2020 13:54:07 11/20/19 24 text/ht ml A 67 year old female being seen for a initial intake note. Medical history of vertigo, falls, fibromyalgia, GERD, depression, chronic low back pain, asthma, anxiety, obesity, vitamin D deficiency, goiter and injury to rotator cuff. Sabrina presented to [facility] for evaluation of back pain, nausea, and fell to the ground in her apartment without LOC diagnosised of worsening low back pain, disc herniation, and hx of compression fracture and transferred to [facility] for continued care and rehab on 11/19/23. Her workup conisted of CT head, cr spine lumbar, blood work and ekg all unremarkable for acute fracture. Mild multilevel degernerative endplate spurring with lower lumbar predominant facet arthritis noted. Blood work including troponin unremarkable. She was given a lidocaine patch and flexeril for pain. Orthos not tolerated by pt to [facility]. of note: she was admitted to rehab in 2020 for similar concerns. On exam, Sabrina is seen in sitting up at her bedside in [employer]. She denies any pain, shortness of breath, nausea, dizziness, or chest pain. She is very pleasant and denies any new concerns today. 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 MOLST: DNR/DNI/transfer to hospital, no dialysis, no art nutrition, may use hydration short term Araceli Mendoza, CORE ANALYSIS OPERATOR [address] [facility], [address], [place], [address], [place] [facility] [employer] 11/20/2023 09:11:01 11/21/19 24 text/ht ml This is a 67 yo woman who is here for rehab after an ED visit for a fall with subsequent back pain.She presented to the [facility] ED on 11/17 after a fall [...] and vitamin D deficiency. Jane Galvan MD [address] [place] [address], [address], [place], [address], [facility] [employer] 11/21/2023 22:52:34 OBGyn Episode No OBEpisode recorded.
--- OUTSIDE RECORDS SUMMARY | 2024-08-12 09:42 | XMS_ITS | Encounter Summary ---
Author Organization [facility] [employer] [facility] Address [address] [place] [address] Care Team Providers Care Chauffeur Name Role Phone Bennie Yang MD Primary Care Provider [phone] Henrique Soler MD Primary Care Provider Unava ilable Encounter Details Date Type Department Care Team Description 07/20/2015 Business Doc Medical Records [address] [place], [place] [id number] Abstract, Provider Social History Tobacco Use Types [...] on filedocumented in this encounter Care Teams Chauffeur Relationship Specialty Start Date End Date Bennie Yang MD [address] [place], [place] [id number] PCP - General Internal Medicine 06/19/15 03/31/18 Henrique Soler MD [address] [place], [place] [id number] PCP - General Internal Medicine 04/01/18 documented as of this encounter
--- OUTSIDE RECORDS SUMMARY | 2024-08-12 09:42 | XMS_ITS | Encounter Summary ---
Author Organization [facility] [employer] [place] [facility] Address [address] [place] [address] Care Team Providers Care Licensed Prosthetist/Orthotist Name Role Phone Bennie Yang MD Primary Care Provider [phone] Henrique Soler MD Primary Care Provider Unava ilable Encounter Details Date Type Department Care Team Description 09/04/2017 Business Doc Medical Records [address] [place], [place] [id number] Abstract, Provider Social History Tobacco Use Types [...] on filedocumented in this encounter Care Teams Licensed Prosthetist/Orthotist Relationship Specialty Start Date End Date Bennie Yang MD [address] [place], [place] [id number] PCP - General Internal Medicine 06/19/15 03/31/18 Henrique Soler MD [address] [place], [place] [id number] PCP - General Internal Medicine 04/01/18 documented as of this encounter
--- OUTSIDE RECORDS SUMMARY | 2024-08-12 09:42 | XMS_ITS | Data Portability ---
Author Organization [facility] Address [address] [place] [address] Care Team Providers Care Cattle Feeder Name Role Phone HIM CCA OTHER Assessment Encounter Date Assessment Date Assessment LastModified by Organization Details LastModified Time 10/22/2023 10/22/2023 I provided real -time medical direction via phone for this encounter and was available for additional phone-based assistance as needed. I have reviewed and agree with the Assessment and Plan as documented by the Headrig Sawyer. Patient given the opportunity to ask questions. Our service contacted for an assessment of: Urinary symptoms As per above, patient with approximately 24 hours of dysuria, frequency. No history of frequent urinary tract infections. Denies fever, chills, abdominal pain, back pain, flank pain. Per mason tender on the scene, Vital signs are stable [...] Lab BMP, serum or plasma 2022 023 [email or web address] [facility], [address] [place] [address], [id number], 19:46:18 BMP, serum or plasma 2022 023 [email or web address] [facility], [address] [place] [address], [id number], 3 13:31:51 urinalys is, dipstick 2023 024 [facility] [address] [place] [address], [address], 4 09:18:24 culture, urine 2023 024 [facility], [address] [place] [address], [address], 4 09:55:32 urinalys is, dipstick 2023 024 [facility], [address] [place] [address], [address], 4 09:18:51 Referral None recorded . Procedures None recorded . Surgeries None recorded . Imaging None recorded . Medication Orders meclizin e 25 mg tablet 2022 023 G[facility], [address] [place], [address], 3 19:55:10 ondanset melissa 4 mg disinteg rating tablet 2022 023 [facility], [address] [place], [address], 3 13:33:30 sodium chloride 0.9 % intraven ous solution 2022 023 [email or web address] [facility], [address] [facility], [place], [address], 3 13:32:47 ondanset melissa HCl (PF) 4 mg/2 mL injectio n solution 2022 023 [email or web address] [facility], [address] [place], [address], 3 13:32:47 lactated Ringers intraven ous solution 2022 023 [email or web address] [facility], [address] [place], [address], 3 12:22:06 levoflox acin 500 mg tablet 2023 024 [facility], [address] [facility], [place], [address], 4 21:23:53 Patient TargetsNo targets recorded. Patient Instructions Encounter Date Encounter Id Patient Instructions Last Modified By Organization Details Last Modified Time 02/23/2023 [id number] orthostatic vitals* GIO Not available 02/29/2024 05:01:31 Reason for Referral None Reported. Results Created Date Observation Date Name Description Value Unit Range Abnormal Flag Note LastModifiedBy Organization Detail LastModifiedTime 02/24/2002/23/2023 BMP, serum or plasm a BUN 19 Not Available [facility] [address], [address], 02/23/2023 19:45:16 02/24/20 23 02/23/2023 BMP, serum or plasm a CI- 99 Not Available [facility] [address], [address], 02/23/2023 19:45:16 02/24/20 23 02/23/2023 BMP, serum or plasm a CRE 0.7 Not Available [facility] [address], [address], 02/23/2023 19:45:16 02/24/20 23 02/23/2023 BMP, serum or plasm a GLU 162 Not Available [facility] [address], [address], 02/23/2023 19:45:16 02/24/20 23 02/23/2023 BMP, serum or plasm a K+ 4.2 Not Available [facility] [address], [address], 02/23/2023 19:45:16 02/24/20 23 02/23/2023 BMP, serum or plasm a Na+ 139 Not Available [facility] [address], [address], 02/23/2023 19:45:16 02/24/20 23 02/23/2023 BMP, serum or plasm a tCO2 20 Not Available [facility] [address], [address], 02/23/2023 19:45:16 03/01/20 23 03/01/2023 BMP, serum or plasm a BUN 23 Not Available [facility] [address], [address], 03/01/2023 13:31:01 03/01/20 23 03/01/2023 BMP, serum or plasm a CRE 0.7 Not Available [facility] [address], [address], 03/01/2023 13:31:01 03/01/20 23 03/01/2023 BMP, serum or plasm a GLU 131 Not Available [facility] [address], [address], 03/01/2023 13:31:01 03/01/20 23 03/01/2023 BMP, serum or plasm a K+ 4.6 Not Available [facility] [address], [address], 03/01/2023 13:31:01 03/01/20 23 03/01/2023 BMP, serum or plasm a Na+ 140 Not Available [facility] [address], [address], 03/01/2023 13:31:01 03/01/20 23 03/01/2023 BMP, serum or plasm a tCO2 28 Not Available [facility] [address], [address], 03/01/2023 13:31:01 Result Notes None recorded. Medical [...] % 118 mm[Hg] 76 mm[Hg] Not Available [employer] - production 3 18:33:45 Date Recorded Body temperature Respiratory rate Heart rate Body weight Oxygen saturation Oxygen saturation in Arterial blood by Pulse oximetry Systolic blood pressure Diastolic blood pressure Provider Name and Address Organization Details Last Updated DateTime 3 98.8 [degF] 16 /min 64 /min 892277. 76 g 98 % 98 % 126 [...] % 161 mm[Hg] 90 mm[Hg] Not Available [employer] - production 3 15:42:48 Date Recorded Body weight Body height Body temperature Oxygen saturation Oxygen saturation in Arterial blood by Pulse oximetry Respiratory rate Heart rate Systolic blood pressure Diastolic blood pressure Provider Name and Address Organization Details Last Updated DateTime 4 52387.6 g 152.4 cm 98.4 [degF] 96 % 96 % 14 /min 80 /min 124 mm[Hg] 80 mm[Hg] Not Available [employer] - [employer] 4 21:21:02 Social History None recorded. Functional Status None recorded. Mental Status None recorded. Family History Nothing Reported. Medical History No medical history recorded. Gynecological HistoryNo gynecological history recorded. Obstetrics History GPAL:G 0 P 0 0 0 0 Past Encounters Encounter ID Performer Location Encounter Start Date Encounter Closed Date Diagnosis/Indication Diagnosis SNOMED-CT Code Diagnosis ICD10 Code Diagnosis Note [id number] Kesha Beck MD Main - [address] [address] 02/21/2023 15:44:06 02/22/2023 15:35:21 Dehydration 21544339 E86.0 [id number] Sajan Rueda MD [facility] - [address] [address] 02/23/2023 18:33:42 02/24/2023 07:20:36 Dizziness 757661319 R42 As noted, we were called to see this patient regarding concerns of dizziness/ unsteadine ss. Evaluation in the field was performed by my mason tender colleague, as noted above, I provided real-time direction and supervisio n for this visit. The evaluation revealed a patient with normal VS and slightly orthostati c with HR increase of 15 bpm with standing. More striking is her stumbling upon ambulation . Basic neurologic al evaluation was unrevealin g of a focal deficit or localizing finding, and the duration of symptoms (months or so) is outside the window of acute action. Impression :Instabili ty/ataxia of uncertain etiology, ddx includes hypovolemi a, meds, SPECIAL EDUCATION ADMINISTRATOR or PNS process, including focal lesions, neuropathy , among others. She is definitely a fall risk but it is reassuring she has not yet fallen. Labs show normalizat ion of creatinine from prior KAIT, which is presumed to have been from hypovolemi a. This seems to be vertiginou s and so a cardiac cause is unlikely. Plan:Suppo rtive careHigh risk for fallsAKI due to hypovolemi a raises concern for adult failure to thrive, though she seems to be doing better now.Needs close follow upNeuro consult and/or imaging may be appropriat e, but is not clearly needed urgently todayShe mentions antivert previously helped; first dose given today and short-term Rx sent Primary care, considerin -person visit as soon as possible, and measures to prevent falling Dispositio n:We discussed the diagnostic uncertaint y of home visits and the risk associated with this. In this case, the patient and I felt this to be an acceptable and reasonable amount of risk given the benefit of avoiding an ED visit. We discussed the need to seek care urgently/e mergently in the setting of any new or worsening serious symptoms, particular ly falling, confusion, face/arm/l eg weakness. [id number] Madelyn Robertson MD [facility] [address] [place] [address] 03/01/2023 13:28:34 03/04/2023 11:06:40 Acute gastroenteritis 68087919 K52.9 Evaluation in the field was performed by my mason tender colleague, as noted above, I provided real-time direction and supervisio n for this visit. 67yo F recent visits for weakness and dizziness p/w 1 day N/V/D w/o blood, diarrhea is watery. No sick contact or new foods, no C diff risk factors. Abd exam benign. VS reassuring all wnl. Labs wnl including Cr 0.9 and no electrolyt e derangemen ts. Suspect viral gastroente ritis, rec BRAT diet, zofran prn. Also given 1L IVF given ongoing diarrhea. If no improvemen t within 48 hrs or worsening would recommend ED eval. If persistent warrants GI work up given subacute FTT. We discussed the diagnostic uncertaint y of home visits and the risk associated with this. In this case, the patient and I felt this to be an acceptable and reasonable amount of risk given the benefit of avoiding an ED visit. We discussed the need to seek care urgently/e mergently in the setting of any new or worsening serious symptoms, shortness of breath, cough, chest pain, fever. [id number] Carmen Pemberton MD Main - [address] [address] 03/02/2023 11:45:43 03/04/2023 11:11:38 Acute gastroenteritis [id number] K52.9 67 yo w/ gastroente lashanda, seen two days ago by [facility] w/ c/o NBNB nausea/vom itting/derrek rrhea. Treated at the time with IV fluids, zofran. Notes some improvemen t since but continues to have many episodes of water diarrhea and c/o LUQ abdominal pain. VSS, no hypotensio n or orthostasi s, abdomen benign. on futher discussion , it appears she's had these symptoms before associated to gastritis which improved with PPI. She takes 40mg pantoprazo le QD. POC labs reassuring . Will give 1L LR, advised 1-2 days of BID 40mg pantoprazo le. Otherwise reviewed warning signs/sx and recommende d calling PCP first thing on Friday morning. Questions answered; pt and mason tender agreeable with plan [id number] Jose Hawk MD Main - [address] [address] 04/06/2023 15:42:46 04/07/2023 08:17:20 Syncope and collapse [id number] R55 This 67-year-ol d female has had two episodes of syncope without warning in the past 24 hours. She did hit her head and now complains of head and neck pain. I recommende d that she go to the ER for further evaluation and treatment. The patient resisted this recommenda tion, so I instructed the mason tender to try and change her mind. [id number] Alie Dillard MD Main - [address] [address] 10/22/2023 21:20:49 10/23/2023 11:15:53 Urinary symptoms [id number] R39.9 Health Concerns Section Related Observation LastModified by Organization Detai ls LastModified Time None Recorded Concern Status LastModified by Organization Details LastModified Time None Recorded Advance Directives Directive None Recorded Payers Encounter Date Sequence Insurance Name Policy Number Policy Maradiaga Covered Member ID Maradiaga Member ID Guarantor Name 02/23/2023 1 [employer] - DOS ON OR AFTER 2022 - DUAL ELIGIBLE - SKILLED NURSING OPTIONS AND ONE CARE (MEDICARE REPLACEMENT/ADV ANTAGE - HMO) Sabrina Mcqueen [id number] Sabrina Mcqueen 03/01/2023 1 [employer] - DOS ON OR AFTER 2022 - DUAL ELIGIBLE - SKILLED NURSING OPTIONS AND ONE CARE (MEDICARE REPLACEMENT/ADV ANTAGE - HMO) Sabrina Mcqueen [id number] Sabrina Mcqueen 03/02/2023 1 [employer] - DOS ON OR AFTER 2022 - DUAL ELIGIBLE - SKILLED NURSING OPTIONS AND ONE CARE (MEDICARE REPLACEMENT/ADV ANTAGE - HMO) Sabrina Mcqueen [id number] Sabrina Mcqueen 04/06/2023 1 [employer] - DOS ON OR AFTER 2022 - DUAL ELIGIBLE - SKILLED NURSING OPTIONS AND ONE CARE (MEDICARE REPLACEMENT/ADV ANTAGE - HMO) Sabrina Mcqueen [id number] Sabrina Mcqueen 10/22/2023 1 [employer] - DOS ON OR AFTER 2022 - DUAL ELIGIBLE - SKILLED NURSING OPTIONS AND ONE CARE (MEDICARE REPLACEMENT/ADV ANTAGE - HMO) Sabrina Mcqueen [id number] Sabrina Mcqueen Notes Date Note Type Note Provider Name and Address Organization Details Recorded Time 02/23/2023 text/html CRC Nursing Assessment: Reason For Request: Dizziness Chief Complaints: Syncope/Dizziness/ Lightheadedness PMH: COPD/Asthma Comments: Referral taken via Systems Test Engineer [id number]. Member identified via /name. [facility]. During visit it [...] .................. .................. .................. .................. .................. .................. ............... Headrig Sawyer Note From Man Bolton: Dispatched to the call address for the female with dizziness. Pt [facility] and was given 1L of fluid. Pt [...] .................. .................. .................. .................. .................. ............... Disposition: Nissa Sajan Rueda MD [address] [facility],[address], [place], [address], [place] - [employer] 02/24/2023 15:04:28 03/01/2023 text/html CRC Nursing Assessment: Chief Complaints: Abdominal Pain, Pain PMH: COPD/Asthma Allergies: No Known Comments: Pt reports having N/V/D and feeling unwell - S/S started this am - Denies denies fever/chills - Denies QUACH and Body aches - Decreased PO intake - Abdominal pain in all quadrants - Member is requesting an [facility] response requested. Shreyas TORRES .................. .................. .................. .................. .................. .................. .................. ............... Headrig Sawyer Note From Himanshu Payne: pt requesting visit [...] POC bloodwork drawn, unremarkable. Sent results to [facility], [facility] contacted [facility] ordered 1L of NS and 4MG of zofran IVP. [facility] sent prescription for Zofran to pt's pharmacy. Pt educated on s/s warranting a 911 call/trip to the hospital. Pt advised to F/U with PCP or [facility] if symptoms persist or worsen. [facility] Lab Orders: BMP, serum or plasma: Performed .................. .................. .................. .................. .................. .................. .................. ............... Disposition: Fulfilled Madelny Robertson MD [address] [place] [address],[address], [place], [address], [facility] - [employer] 03/01/2023 14:39:58 03/02/2023 text/html CRC Nursing Assessment: Chief Complaints: Abdominal Pain, Pain PMH: COPD/Asthma Allergies: Unknown Comments: Member was evaluated yesterday by [email or web address] - Reports s/s remain the same and [...] POC bloodwork drawn, unremarkable. Sent results to [facility], [facility] contacted [facility] ordered 1L of NS and 4MG of zofran IVP. [facility] sent prescription for Zofran to pt's pharmacy. Pt educated on s/s warranting a 911 call/trip to the hospital. Pt advised to F/U with PCP or [facility] if symptoms persist or worsen. Shreyas TORRES .................. .................. .................. .................. .................. .................. .................. ............... Headrig Sawyer Note From Man Bolton: Dispatched to the [...] CAOx4, airway open and patent. Breathing non laborer construction or leak gang. Able to speak in full sentences, -JVD, -HEENT, pupils PERRL, and soft non tender/distended, skin PWD with good turgid, lung sounds clear an equal bilaterally. [facility] consulted. IV established. BMP conducted, 1L LR given. Red flags discussed. All times are approx. .................. .................. .................. .................. .................. .................. .................. ............... Disposition: Fulfilled Carmen Pemberton MD [address] [facility],[address], [place], [address], [employer] - [employer] 03/03/2023 12:22:18 04/06/2023 text/html CRC Nursing Assessment: Chief Complaints: Syncope/Dizziness/ Lightheadedness, Falls PMH: COPD/Asthma Allergies: Unknown Comments: + dizziness since yesterday. Fall x2 yesterday and today. Unsteady gait due to dizziness. Unknown LOC. Possible head strike. c/o left wrist pain. Advised ED for further evaluation. Member declined ED after education but will accept [facility] visit first. Red flags reviewed. Instructed to call 911 for worsening symptoms. Jose Hawk MD [address] [facility],[address], [place], [address], [employer] 04/06/2023 15:45:49 10/22/2023 text/html CRC Nurse Triage Notes (Morenita Dawson): Chief Complaints: Pain PMH: COPD/Asthma Allergies: Unknown Comments: Croatian speaking member. eye care professional used. Verified name//address. Member reports left flank pain that is getting worse. Reports multiple falls. Last fall on Friday. Member states she was evaluated s/p falls. Denies fevers. Denies urinary symptoms. Denies chest pain or shortness of breath. Advised member to call 911 with worsening signs/symptoms. .................. .................. .................. .................. .................. .................. .................. ............... Headrig Sawyer Note From Costa Nielsen: Patient conscious alert [...] findings. Patient provides urine sample culture to [facility] UA values to [facility]. [facility] orders levafloxacin 500 mg PO and will prescribe more to patients local pharmacy. Red flags and patient education discussed. Consent, signed and uploaded times two .................. .................. .................. .................. .................. .................. .................. ............... Disposition: Fulfilled Alie Dillard MD [address] [place] [address],[address], [place], [address], [employer] 10/22/2023 21:25:11 OBGyn Episode No OBEpisode recorded.
--- OUTSIDE RECORDS SUMMARY | 2024-08-12 09:42 | XMS_ITS | Encounter Summary ---
Author Organization [facility] [employer] [facility] Address [address] [place] [address] Care Team Providers Care Biometric Fingerprinting Technician Name Role Phone Bennie Yang MD Primary Care Provider [phone] Henrique Soler MD Primary Care Provider Unava ilable Encounter Details Date Type Department Care Team Description 10/11/2016 Business Doc Medical Records [address] [place], [place] [id number] Abstract, Provider Social History Tobacco Use Types [...] on filedocumented in this encounter Care Teams Biometric Fingerprinting Technician Relationship Specialty Start Date End Date Bennie Yang MD [address] [place], [place] [id number] PCP - General Internal Medicine 06/19/15 03/31/18 Henrique Soler MD [address] [place], [place] [id number] PCP - General Internal Medicine 04/01/18 documented as of this encounter
--- OUTSIDE RECORDS SUMMARY | 2024-08-12 09:42 | XMS_ITS | Encounter Summary ---
Author Organization [facility] [employer] [facility] Address [address] [place] [address] Care Team Providers Care Verify Rep Name Role Phone Bennie Yang MD Primary Care Provider [phone] Henrique Soler MD Primary Care Provider Unava ilable Encounter Details Date Type Department Care Team Description 08/11/2015 Transfer Records Medical Records [address] [place], [place] [id number] Abstract, Provider Social History Tobacco Use Types [...] on filedocumented in this encounter Care Teams Verify Rep Relationship Specialty Start Date End Date Bennie Yang MD [address] [place] [address] PCP - General Internal Medicine 06/19/15 03/31/18 Henrique Soler MD [address] [place], [place] [id number] PCP - General Internal Medicine 04/01/18 documented as of this encounter
--- NOTE | 2024-08-12 10:03 | MHC.PC.OV ---
Vital Signs 08/12/24 10:05 Height 5 ft 6 in Weight 234 lb 8 oz BMI 37.8 BP 110/70 Blood Pressure Location Lt brachial Position Sitting Temp 96.6 F L Temp Source Skin Intake Visit Reasons: Feeling really tired lately. Intake Note: Patient is here to follow up on Feeling really tired lately, difficulty walking, both heel pain . Block Inspector Required: No Picc Nurse: Not Required per policy Accompanied by: Self / Same As Patient Allergies codeine [Tylenol-Codeine #3] Allergy (Intermediate, Verified 08/12/24 10:35) Rash morphine Allergy (Intermediate, Verified 08/12/24 10:35) rash and itching nalbuphine [From Nubain] Allergy (Intermediate, Verified 08/12/24 10:35) Rash oxycodone [Percocet] Allergy (Intermediate, Verified 08/12/24 10:35) Rash propoxyphene [From Darvocet-N 100] Allergy (Intermediate, Verified 08/12/24 10:35) Rash tramadol [Ultram] Allergy (Intermediate, Verified 08/12/24 10:35) Rash ibuprofen [From Motrin] Allergy (Mild, Verified 08/12/24 10:35) RASH montelukast [Singulair] Allergy (Unknown, Verified 08/12/24 10:35) Unknown Medication List - Last Reconciled 08/12/24 by Henrique Soler MD [ADULT PULL-UPS -- MEDIUM SIZE As directed] [BED PADS As directed] bupropion HCl SR 200 mg (2 x 100 mg) PO BID buspirone 10 mg PO BID 30 days celecoxib (Celebrex) 200 mg PO BID 30 days cholecalciferol (vitamin D3) 50 mcg PO DAILY 90 days cyanocobalamin (vitamin B-12) 1,000 mcg PO DAILY 90 days divalproex 500 mg PO BID 30 days duloxetine 30 mg PO BID 30 days ergocalciferol (vitamin D2) (Vitamin D2) 1,250 mcg PO QWEEK [Heating Pad As directed] heating pads As directed [INCONTINENCE PADS Use as directed] [LEFT KNEE BRACE As directed] loratadine 10 mg PO DAILY PRN 30 days meclizine 25 mg PO DAILY PRN nortriptyline 25 mg PO BID 30 days pantoprazole 40 mg PO DAILY pregabalin 150 mg PO TID 30 days [QUAD CANE As directed] [QUAD CANE (lightweight) As directed] [RAISED TOILET SEAT As directed] [RIGHT KNEE BRACE As directed] [RIGHT THUMB SPLINT As directed] [RUBBER HANDLE/FILING CLERK for 4-pronged aluminum cane As directed] [RUBBER TIPS FOR QUAD CANE As directed] Ventolin HFA 90 mcg/actuation (albuterol sulfate) 2 puffs inhalation Q4-6H PRN NS [WRIST BRACE (right wrist) - MEDIUM As directed] Tobacco use date assessed: 08/12/24 Fall risk assessment: 2 + Falls in past year Last assessed Fall Risk: 08/12/24 Dental Screening Dental Screen Date: 08/12/24 Did you have a dental visit in the last 12 months?: Yes Did you have a dental problem in the last 6 months where you did not have access to dental care?: No Was dental information given to patient?: Patient has dentist HPI Feeling really tired lately. HPI Details Patient comes in today with multiple complaints States that she has been experiencing increased fatigue more than usual for over a month now Relates that she has not been sleeping well at night even with current Rx - states that she is not even sure what she is taking now to help her sleep States that she usually sleeps half an hour to an hour and then wakes up frequently in the middle of night, and that it will take a while before she can go back to sleep She was prescribed Trazodone 100 mg back in 2021 but patient does not remember if it helped); she currently appears to be on Lorazepam, Nortriptyline, Benadryl/hydroxyzine, Pregabalin at night but no Trazodone is seen in her med list Patient is instructed to bring in all of her meds at her next visit for medication reconciliation Adds that she has been experiencing recurrent pain over her right Achilles tendon area for the past 3 months She denies any recent injury or trauma to her right ankle area She denies any headaches or dizziness Denies any chest pains, no increased shortness of breath No nausea/vomiting, no abdominal pain No change in bowel habits noted She had some follow-up labs done back in June 2024 - to discuss her results [facility] Medical History Folliculitis Pure hypercholesterolemia Allergic rhinitis Insomnia Multiple joint pain GERD without esophagitis Vitamin D deficiency Lumbar spondylosis Obesity (BMI 30-39.9) Migraine Primary osteoarthritis of both knees Urinary incontinence Rotator cuff tear, left Depression Asthma Fibromyalgia Non-toxic multinodular goiter Anxiety Surgical History Status post rotator cuff surgery S/P rotator cuff repair Status post right rotator cuff repair (~07/26/18) History of hysterectomy History of cholecystectomy History of laminectomy (~2009) Family History Father Diabetes Mother Medical history unknown Social History Household Members: None Housing: Apartment Do you presently have visiting nurse or other home services: No Alcohol intake: former Patient Tobacco Use Status: Never used Tobacco e-Cigarette/Vaping Use: Never Used Second Hand Smoke Exposure: No service: No Current occupational status: disabled Cognitive needs: Yes (cane) Hearing needs: No Vision needs: Yes (glasses) Questionnaire PHQ-9 Over the last 2 weeks, how often have you been bothered by any of the following problems? 1. Little interest or pleasure in doing things: not at all 2. Feeling down, depressed, or hopeless: not at all 3. Trouble falling or staying asleep, or sleeping too much: not at all 4. Feeling tired or having little energy: not at all 5. Poor appetite or overeating: not at all 6. Feeling bad about yourself - or that you are a failure or have let yourself or your family down: not at all 7. Trouble concentrating on things, such as reading the newspaper or watching television: not at all 8. Moving or speaking so slowly that other people could have noticed. Or the opposite - being so fidgety or restless that you have been moving around a lot more than usual: not at all 9. Thoughts that you would be better off or of hurting yourself in some way: not at all Total score: 0 Depression Screening Interpretation: Negative Depression Screening Done: Yes 53110 - PHQ-9 Billing: Yes Source: Developed by Drs. Lang L. Kelsey Pacheco Kurt Kroenke and colleagues, with an educational juvenal from [employer]. Thrive Questionnaire Date Thrive assessed: 08/12/24 I am a: Patient What is your living situation today?: I have a steady place to live Within the past 12 months, did the food you bought not last and you didn't have the money to get more?: Never true Within the past 12 months, did you worry whether your food would run out before you got money to buy more?: Never true Do you have trouble paying for medicines?: No Do you have trouble getting transportation to medical appointments?: No Do you have trouble paying your heating and electricity bill?: No Do you have trouble taking care of your child, family member or friend?: No Do you have trouble with day-to-day activities such as bathing, preparing meals, shopping, managing finances, etc.?: No Are you currently unemployed and looking for a job?: No Are you interested in more education?: No Please select the resources that you would like help with: None Currently or been in a relationship where the following occur: No concerns reported THRIVE Score: 0 AUDIT C Alcohol Use Questionnaire (AUDIT-C) 1. How often do you have a drink containing alcohol?: Never 3. How often do you have six or more drinks on one occasion?: Never Total Score: 0 Score Reviewed/Action Taken: Yes FLACO-7 AMB Questionnaire FLACO-7 Date FLACO - 7 assessed: 08/12/24 Feeling nervous, anxious, or on edge: 0 = Not at all Not being able to stop or control worryin = Not at all Worrying too much about different things: 0 = Not at all Trouble relaxin = Not at all Being so restless that it is hard to sit still: 0 = Not at all Becoming easily annoyed or irritable: 0 = Not at all Feeling afraid as if something awful might happen: 0 = Not at all Total FLACO-7 score (0-4 normal; 5-9 mild; 10-14 moderate; 15-21 severe): 0 Source: Developed by Drs. Lang Pacheco, Filemon Quinn and colleagues, with an educational juvenal from [employer]. Review of Systems Const Reports body aches (diffuse), Denies chills, Reports difficulty sleeping (see HPI for details), Reports fatigue (increased), Denies fever(s) and Denies headache(s) ENT Denies dysphagia, Denies dizziness, Denies otalgia, Denies headache(s), Reports neck pain (chronic), Denies odynophagia and Denies sore throat Card Denies chest pain, Denies irregular heart rhythm, Denies palpitations and Reports dyspnea on exertion (mild) Resp Denies chest congestion, Denies cough and Reports dyspnea on exertion (mild) GI Denies abdominal pain, Denies constipation, Denies dysphagia, Denies heartburn, Denies diarrhea, Denies nausea, Denies odynophagia and Denies vomiting Denies hematuria, Denies urinary frequency, Denies dysuria, Denies urinary incontinence and Denies urinary urgency Musc Details: recurrent pain over the left lower back that often radiates down the back of her left lower extremity; also (+) increased pain over her right Achilles tendon area/right ankle Reports back pain (over the lower back (chronic) but has increasing pain on left side lately), Reports arthralgias (left shoulder - S/P surgery in 03/2021), Reports neck pain (chronic) and Reports stiffness (left shoulder) Skin/Breast Denies rash Neuro Denies dizziness, Denies headache(s) and Denies paresthesias Psych Denies anxiety and Denies depression Endo Reports fatigue (increased) and Denies palpitations Corona/Lymph Denies easy bruising Physical exam (Primary Care) Vital Signs: Last Vital Signs Temp 96.6 F L 08/12/24 10:05 BP 110/70 08/12/24 10:05 BMI result Body Mass Index 37.8 Tobacco/Smoking Status: Tobacco use Status Tobacco use date assessed 08/12/24 08/12/24 10:15 Patient Tobacco Use Status Never used Tobacco 08/12/24 10:15 Tobacco use type 04/20/24 09:59 e-Cigarette/Vaping Use Never Used 08/12/24 10:15 PHQ-9: PHQ-9 Score PHQ-9: Total score 0 08/12/24 10:36 Depression Screening Interpretation: Negative Thrive Assessment: Date of Thrive Assessment Date Thrive assessed 08/12/24 08/12/24 10:15 Currently or been in a relationship where the following occur: No concerns reported Const General: no acute distress and alert HENMT Ears: TM's normal bilaterally and EAC's normal Throat: Yes posterior oropharynx normal and Yes tonsils normal (no TP congestion) Neck Neck: Yes supple and No lymphadenopathy Thyroid: Thyroid normal Resp Auscultation: clear to auscultation bilaterally, no rales and no wheezes Cardio Rate: regular rate Rhythm: regular rhythm Heart sounds: no murmurs GI Palpation (GI): Soft to palpation and nontender Auscultation: normal bowel sounds General: Yes no CVA tenderness Back/Spine/Pelvis Back: no CVA tenderness Cervical Spine: cervical muscular tenderness and Cervical spine tenderness Thoracic/Lumbar Spine: paraspinal muscle tenderness bilaterally in the upper thoracic, in the mid lumbar and in the lower lumbar and on the left greater than right and lumbar spinal tenderness Skin Rashes: no rashes Extrem General: Yes no clubbing, cyanosis or edema Left upper extremity: shoulder/upper arm Details: tenderness Location: of the A-C joint and normal ROM; no swelling Right lower extremity: ankle Details: tenderness Location: of the achilles tendon Results Reviewed Results Reviewed: Laboratory Tests 06/16/24 06/17/24 10:38 09:00 WBC 6.5 Hgb 13.2 Hct 40.7 Plt Count 212 Sodium 143 Potassium 4.5 Creatinine 0.93 Estimated GFR > 60 Random Glucose 128 H Hemoglobin A1c % 6.5 H Calcium 9.1 AST 20 ALT 16 Vitamin B12 1165 H 25-OH Vitamin D Total 28.7 L Free T4 1.02 Total T3 110 Ur Specific [place] >= 1.030 H Urine Protein Negative Urine Glucose (UA) Negative Urine Blood Negative Urine Nitrite Negative Ur Leukocyte Esterase Trace H Coding Level of Care Code Est Pt Level 4 (62481) Diagnoses Pure hypercholesterolemia E78.00 Mild persistent asthma without complication J45.30 Asthma severity: mild Asthma persistence: persistent Asthma complication type: uncomplicated Migraine without status migrainosus, not intractable, unspecified migraine type G43.909 Migraine type: unspecified Status migrainosus presence: without status migrainosus Intractability: not intractable Lumbar spondylosis M47.816 Fibromyalgia M79.7 Rotator cuff tear arthropathy of left shoulder M75.102; M12.812 Primary osteoarthritis of both knees M17.0 Right ankle pain, unspecified chronicity M25.571 Chronicity: unspecified Allergic rhinitis, unspecified seasonality, unspecified trigger J30.9 Allergic rhinitis trigger: unspecified Allergic rhinitis seasonality: unspecified GERD without esophagitis K21.9 Vitamin D deficiency E55.9 Vitamin B12 deficiency E53.8 Insomnia, unspecified type G47.00 Insomnia type: unspecified Anxiety F41.9 Depression, unspecified depression type F32.9 Depression Type: unspecified Obesity (BMI 30-39.9) E66.9 Additional Codes PHQ-9 - 89912 - PHQ-9 Billing: Yes ([id number]) Assessment & Plan Assessment & Plan (1) Pure hypercholesterolemia: Code(s): E78.00 - Pure hypercholesterolemia, unspecified Category: Medical Plan: Results of her labs done back in June 2024 reviewed and discussed with patient Reinforced low cholesterol diet Will recheck her labs and fasting lipids in 4 months for follow up (2) Asthma: Code(s): J45.909 - Unspecified asthma, uncomplicated Category: Medical Qualifiers: Asthma severity: mild Asthma persistence: persistent Asthma complication type: uncomplicated Qualified Code(s): J45.30 - Mild persistent asthma, uncomplicated Plan: Stable Continue Flovent HFA 110 mcg 1 inhalation BID and Albuterol HFA 2 puffs 4 times a day as needed; also uses Albuterol nebulization as needed (3) Migraine: Code(s): G43.909 - Migraine, unspecified, not intractable, without status migrainosus Category: Medical Qualifiers: Migraine type: unspecified Status migrainosus presence: without status migrainosus Intractability: not intractable Qualified Code(s): G43.909 - Migraine, unspecified, not intractable, without status migrainosus Plan: Stable on prophylactic Tx Continue Topiramate 25 mg BID and Nortriptyline 25 mg Q HS Reinforced again avoidance of all potential migraine triggers (4) Lumbar spondylosis: Code(s): M47.816 - Spondylosis without myelopathy or radiculopathy, lumbar region Category: Medical Plan: Reinforced activity and weight-lifting restrictions Continue Methocarbamol 750 mg TID PRN and Duloxetine 30 mg QD MRI of the lumbar spine last done in 05/2021 revealed s/p instrumented fusion at the L2-L3 level with laminectomy changes, with no significant canal or foraminal compromise, stable in appearance. Stable discogenic degenerative changes at multiple levels, with stable multilevel bilateral facet arthropathy. Multilevel disc bulging and foraminal disc protrusions are again noted, similar to the previous exam with no significant central spinal canal stenosis. No significant neural foraminal stenosis. No abnormal enhancement within the limitations of the study. Repeat lumbar spine x-rays done at [facility] last year showed stable post-op changes with no acute findings She was referred to physical therapy last year because of increased pain, especially over her left lower back, with radiation of pain down the left leg but it does not look like she was seen by PT as we have not received any updated correspondence on this She is complaining again of increased pain over her lower back lately, will send for repeat x-rays of the lumbar spine She was also seeing pain management previously and was going to have a trial of ROSARIO soon as mentioned at her last visit but we have not received any updates on this since Will refer her back to pain management for her increased low back pain (5) Fibromyalgia: Code(s): M79.7 - Fibromyalgia Category: Medical Plan: She is encouraged again on regular exercise and physical activity to help manage her fibromyalgia symptoms Continue Pregabalin 150 mg TID, Nortriptyline 25 mg QHS and Duloxetine 30 mg BID She was [place] [facility] [place] Darnell many years ago and she has not been back in a few years She was referred back [place] [facility] [place] for further evaluation and management - was seen by Dr. Tavarez a few months ago and she was advised to continue on her current Rx with no further recommendations; was also advised to just follow up with her PCP (6) Rotator cuff tear arthropathy of left shoulder: Comment: S/P left rotator cuff surgery in September [address] Velázquez Code(s): M75.102 - Unspecified rotator cuff tear or rupture of left shoulder, not specified as traumatic; M12.812 - Other specific arthropathies, not elsewhere classified, left shoulder Category: Medical Plan: She was seen previously by orthopedics and was recommended to continue with gentle physical therapy of her left shoulder but patient states that this did not really help much Repeat MRI of the shoulder done at [facility] on 02/26/2024 revealed (+) mild glenohumeral joint osteoarthritis with joint effusion and diffuse synovitis. The rotator cuff repair and prior biceps tenodesis appear intact and there are no evidence of recurrent tear. There is mild supraspinatus and infraspinatus muscle atrophy. S/P acromioplasty Follow up with orthopedics as scheduled (7) Primary osteoarthritis of both knees: Code(s): M17.0 - Bilateral primary osteoarthritis of knee Category: Medical Plan: Follow up with orthopedics as scheduled Has knee braces that she wears as needed for added stability to her knees and to help reduce her knee pain (8) Right ankle pain: Code(s): M25.571 - Pain in right ankle and joints of right foot Category: Medical Qualifiers: Chronicity: unspecified Qualified Code(s): M25.571 - Pain in right ankle and joints of right foot Plan: Patient is currently complaining of increased pain over the posterior aspect (Achilles tendon) of the right ankle She does have a history of Achilles tendinitis of both lower extremities Will send her for repeat x-rays of the right ankle for further evaluation Will also refer her to podiatry for further evaluation and management (9) Allergic rhinitis: Code(s): J30.9 - Allergic rhinitis, unspecified Category: Medical Qualifiers: Allergic rhinitis trigger: unspecified Allergic rhinitis seasonality: unspecified Qualified Code(s): J30.9 - Allergic rhinitis, unspecified Plan: Continue Loratadine 10 mg QD PRN (10) GERD without esophagitis: Code(s): K21.9 - Gastro-esophageal reflux disease without esophagitis Category: Medical Plan: Dietary restrictions reinforced Continue Pantoprazole 40 mg QD (11) Vitamin D deficiency: Code(s): E55.9 - Vitamin D deficiency, unspecified Category: Medical Plan: Continue Vitamin D2 33080 units once a week (12) Vitamin B12 deficiency: Code(s): E53.8 - Deficiency of other specified B group vitamins Category: Medical Plan: Continue Vitamin B12 1000 mcg twice a week - she was instructed to cut back on her dosing from daily to BIW as her serum B12 level was very high on her previous labs Will recheck her Vitamin B12 level in 4 months for follow up (13) Insomnia: Comment: was on Trazodone 150 mg in the past but has not refilled Rx since 2016 Code(s): G47.00 - Insomnia, unspecified Category: Medical Qualifiers: Insomnia type: unspecified Qualified Code(s): G47.00 - Insomnia, unspecified Plan: Sleep hygiene reinforced She used to take Trazodone but does not look like she is on it now Have advised patient that her frequent awakening from sleep at night is likely multifactorial, including her recently increased low back pain as well as her urinary frequency and that addressing these issues should eventually lead to less awakenings and better and more restful sleep at night Will start her back on a trial of Trazodone 50 mg Q HS PRN (14) Anxiety: Code(s): F41.9 - Anxiety disorder, unspecified Category: Medical Plan: Continue Lorazepam 0.5 mg TID PRN, Hydroxyzine 25 mg TID PRN and Buspirone 10 mg BID Follow up with psychiatry as scheduled (15) Depression: Code(s): F32.9 - Major depressive disorder, single episode, unspecified Category: Medical Qualifiers: Depression Type: unspecified Qualified Code(s): F32.9 - Major depressive disorder, single episode, unspecified Plan: Continue Budeprion SR 100 mg 2 tablets BID Follow up with psychiatry as scheduled (16) Obesity (BMI 30-39.9): Code(s): E66.9 - Obesity, unspecified Category: Medical Plan: Reinforced diet; weight loss and exercise are unrealistic given patient's multiple physical issues and limited activity tolerance Plan Follow up in 4 months Orders: Orders XR ankle RT min 3V 06/25 M25.571 - Pain in right ankle and joints of right foot XR lumbar spine 2-3V 06/25 M54.50 - Low back pain, unspecified Complete Blood Count Auto Diff 4 Months D64.9 - Anemia, unspecified Lipid Panel 4 Months E78.00 - Pure hypercholesterolemia, unspecified TSH reflex Free T4 4 Months E78.00 - Pure hypercholesterolemia, unspecified Vitamin D 25-OH Total 4 Months E55.9 - Vitamin D deficiency, unspecified UA CC w/rflx Micro + Cult 4 Months R30.0 - Dysuria Comprehensive [place]. Panel Fast 4 Months E78.00 - Pure hypercholesterolemia, unspecified Vitamin B12 and Folate 4 Months E53.8 - Deficiency of other specified B group vitamins Referrals Podiatry Referral M25.571 - Pain in right ankle and joints of right foot Pain Management Referral M54.50 - Low back pain, unspecified Medications: New trazodone 50 mg PO BEDTIME 30 days PRN 30 tabs 1RF sleep
[2024-08-12 10:05] VITALS: BP 110/70; TEMP 35.9; BMI 37.8
== END 2024-08-12 11:02 | disposition home or self-care (01) ==
LOC: HO.HMCH 09:39
PROVIDERS: PCP Internal Medicine; Visit Provider Internal Medicine
DX: E78.00 Pure hypercholesterolemia, unspecified (principal); J45.30 Mild persistent asthma, uncomplicated; G43.909 Migraine, unspecified, not intractable, without status migrainosus; M47.816 Spondylosis without myelopathy or radiculopathy, lumbar region; M79.7 Fibromyalgia; M75.102 Unspecified rotator cuff tear or rupture of left shoulder, not specified as traumatic; M12.812 Other specific arthropathies, not elsewhere classified, left shoulder; M17.0 Bilateral primary osteoarthritis of knee; M25.571 Pain in right ankle and joints of right foot; J30.9 Allergic rhinitis, unspecified; K21.9 Gastro-esophageal reflux disease without esophagitis; E55.9 Vitamin D deficiency, unspecified

== ENCOUNTER → 2024-08-12 09:39 | Outpatient (BNVA) | payer OTHER, SELFPAY | PROVIDERS: PCP Internal Medicine; Visit Provider Internal Medicine | DX: E78.00 Pure hypercholesterolemia, unspecified (principal); J45.30 Mild persistent asthma, uncomplicated; G43.909 Migraine, unspecified, not intractable, without status migrainosus; M47.816 Spondylosis without myelopathy or radiculopathy, lumbar region; M79.7 Fibromyalgia; M75.102 Unspecified rotator cuff tear or rupture of left shoulder, not specified as traumatic; M17.0 Bilateral primary osteoarthritis of knee; M25.571 Pain in right ankle and joints of right foot; J30.9 Allergic rhinitis, unspecified; K21.9 Gastro-esophageal reflux disease without esophagitis; E55.9 Vitamin D deficiency, unspecified; E53.8 Deficiency of other specified B group vitamins; F41.9 Anxiety disorder, unspecified; F32.9 Major depressive disorder, single episode, unspecified; G47.00 Insomnia, unspecified; E66.9 Obesity, unspecified | CPT/HCPCS: 96127; 99212 ==

== ENCOUNTER 2024-08-17 11:59 | Outpatient (REF) | payer OTHER, SELFPAY | END 2024-08-17 12:00 | disposition home or self-care (01) | LOC: HO.XRAY 11:59 | PROVIDERS: PCP Internal Medicine; Visit Provider Internal Medicine | DX: M25.571 Pain in right ankle and joints of right foot (principal); M54.50 Low back pain, unspecified | CPT/HCPCS: 72100; 73610 ==

== ENCOUNTER → 2024-08-17 12:06 | Outpatient (BNV) | payer OTHER, SELFPAY | PROVIDERS: PCP Internal Medicine; Visit Provider Radiology Diagnostic Radiology | DX: M54.50 Low back pain, unspecified (principal); M25.571 Pain in right ankle and joints of right foot | CPT/HCPCS: 72100; 73610 ==

== ENCOUNTER 2024-08-26 12:40 | Outpatient (AMB) | payer OTHER, SELFPAY ==
--- NOTE | 2024-08-26 12:59 | A.OFFVIS_ITS ---
Vital Signs 3 08/26/24 13:04 Height 5 ft 6 in Weight 231 lb BMI 37.3 BP 125/58 L Blood Pressure Location Rt brachial Position Sitting Pulse 73 Pulse Source Pulse Oximeter Pulse Oximetry (%) 96 Oxygen Delivery Method Room Air Intake Visit Reasons: Low back pain, unspecified/pcp ref again Intake Note: Pain today 04/15 Applications Administrator Required: No Accompanied by: Self / Same As Patient Allergies codeine [Tylenol-Codeine #3] Allergy (Intermediate, Verified 08/26/24 13:05) Rash morphine Allergy (Intermediate, Verified 08/26/24 13:05) rash and itching nalbuphine [From Nubain] Allergy (Intermediate, Verified 08/26/24 13:05) Rash oxycodone [Percocet] Allergy (Intermediate, Verified 08/26/24 13:05) Rash propoxyphene [From Darvocet-N 100] Allergy (Intermediate, Verified 08/26/24 13:05) Rash tramadol [Ultram] Allergy (Intermediate, Verified 08/26/24 13:05) Rash ibuprofen [From Motrin] Allergy (Mild, Verified 08/26/24 13:05) RASH montelukast [Singulair] Allergy (Unknown, Verified 08/26/24 13:05) Unknown HPI Comments Details: Patient presents today for follow up for chronic low back pain. Reports recurrent falls and recent onset right foot tendinopathy. She has pending Podiatry evaluation. Back pain is predominantly axial and discogenic today with limited range of motion with decreased functioning and mobility which also affects her sleep and mood. She lives alone and receives [employer] services. Patient is interested to undergo diagnostic lumbar medial branch blocks as next steps. Denies any recent cough, cold, infection, fever or any other significant changes in medical history since last office visit. PRIOR 10/14/22: Patient is a 66 years old female presents today with ongoing chronic low back pain with bilateral radiculopathies as well as components of SIJ pathology. She was previously seen in this office by Sofia ALVARENGA who offered injection L5-S1 interlaminar ROSARIO with local and fluoroscopy but could not schedule this due to transportation issues. Patient reports worsening axial low back pain that also radiates into her buttocks and into bilateral lower extremities bilaterally. Pain affects her daily activities, functioning, sleep, mood and social interactions. Reports frequent falls due to severe pain. She was seen in ER at [facility] last year to do severe pain exacerbation after a fall while bending over. Patient request to be scheduled for Interlaminar L5-S1 ROSARIO for her radicular pain and if no relief, she will go back to see Dr. Agrawal for surgical re-evaluation. She was last seen by Dr. Agrawal in 02/14/22 and evaluation report is noted in patient's chart. Patient denies any fever, chills, weight loss, abdominal or groin pain, bladder or bowel incontinence or saddle anesthesia. PRIOR 02/13/22 Sofia CREDIT CARD INTERVIEWER: Sabrina returns after 4 years with progressively worsening low back pain. She was previously evaluated by Dr. Gillette who recommended a L5-S1 ROSARIO but patient ended up canceling appointment, as she was having some improvements with PT. Over the past four years she reports that her pain has worsened and has more weakness throughout BLE with associated numbness and tingling in bilateral feet, significantly impacting her ability to function normally. She denies any DM. She again notes improvement s/p L2-L3 laminectomy with Dr. Agrawal in 2017 but due to multiple falls over the years for various reasons, her pain has returned. She has been using OTC medications as well as lyrica and meloxicam with minimal relief. She is interested in discussing any interventional option that may be beneficial. PRIOR: Sabrina presents for initial evaluation of chronic worsening low back and leg pain. She obtained an L2/3 laminectomy [place] [address] Agrawal for similar pain. Initially the pain improved however a few months after her pain returned despite aggressive physical therapy and medications. A repeat MRI 08/24 did not describe any change. She has not had any repeat injections since her surgery however prior to her surgery the injections did not provide any relief. She described constant burning/squeezing pain emanating from her low back radiating down the posterior aspect of her legs into her feet. Walking exacerbates her pain. Currently nothing seems to improve her symptoms which range in intensity from 6- 10/10 which is interfering with ability to perform ADL's with severe declining function leading to depressed mood. She denies any fevers, chills, b/b dysfunction while noting weakness in her legs when her pain intensifies. Sabrina presents with mulitifactorial back and leg pain most likely secondary to PLS and chronic persistent radiculopathy with FAS and MPS overlay. She has trialed all modalities in the past without success. Do to her severe pain I have recommended that we provide once more L5/S1 epidural steroid injection, reinstitute physical therpay, while having her evaluated by behavioral therapy for potential spinal [facility] she will likely need and benefit form based on her prior responses to treatment with her continued functional decline. I discussed and explained in detail all treatment modalities including ROSARIO, spinal cord simulation along with PT and BH evaluation. I provided her with handouts and demonstrated on a spine model. I reviewed all risks, benefits, and intended expectations. I answered all her questions. She will followup 3-4 weeks after her injections to review her response. She is agreeable and wishes to proceed. [facility] Medical History Folliculitis Pure hypercholesterolemia Allergic rhinitis Insomnia Multiple joint pain GERD without esophagitis Vitamin D deficiency Lumbar spondylosis Obesity (BMI 30-39.9) Migraine Primary osteoarthritis of both knees Urinary incontinence Rotator cuff tear, left Depression Asthma Fibromyalgia Non-toxic multinodular goiter Anxiety Surgical History Status post rotator cuff surgery S/P rotator cuff repair Status post right rotator cuff repair (~07/26/18) History of hysterectomy History of cholecystectomy History of laminectomy (~2009) Family History Father Diabetes Mother Medical history unknown Social History Household Members: None Housing: Apartment Do you presently have visiting nurse or other home services: No Alcohol intake: former Patient Tobacco Use Status: Never used Tobacco e-Cigarette/Vaping Use: Never Used Second Hand Smoke Exposure: No service: No Current occupational status: disabled Cognitive needs: Yes (cane) Hearing needs: No Vision needs: Yes (glasses) Review of Systems Const All systems reviewed & are unremarkable except as noted in HPI and below Physical Exam Vital Signs: Last Vital Signs Pulse 73 08/26/24 13:04 BP 125/58 L 08/26/24 13:04 Pulse Ox 96 08/26/24 13:04 Oxygen Delivery Method Room Air 08/26/24 13:04 BMI result Body Mass Index 37.3 General: Appears afebrile. Alert and oriented. Mood and affect appropriate. Follows and participates in conversation appropriately. Respiratory effort is unlabored. No cough. Able to transition from sit to stand with use of cane. Ambulates with bilaterally normal heel strike and toe off. General: Yes no CVA tenderness Back/Spine/Pelvis Other: Limited lumbar ROM due to pain. Antalgic gait. Lumbar extension reproduces moderate to severe pain, lumbar flexion and bending reproduces mild to moderate pain. Demonstrates 5/5 strength of quadriceps bilaterally as well as flexion/dorsiflexion of bilateral feet against resistance. 2+ pedal pulses bilaterally. Straight leg rise with dorsiflexion is negative bilaterally. Diminished DTR bilaterally. Jonathan test, Stinchfield test, Pelvic compression test + bilaterally. Facet loading test + bilaterally. No groin pain with I/E hip rotations. Back: no CVA tenderness and back tenderness Cervical Spine: cervical ROM normal, cervical muscular tenderness and No Cervical spine tenderness Thoracic/Lumbar Spine: thoracic and lumbar spine normal to inspection, Thoracic/lumbar spine scar(s), Lasegue's sign negative, straight leg raise negative bilaterally, pain with thoraco-lumbar ROM, paraspinal muscle tenderness, thoraco-lumbar ROM limited, No thoracic spinal tenderness and lumbar spinal tenderness (L4-S1) Pelvis: buttock tenderness bilaterally Sacroiliac joints: bilaterally tender to palpation Extrem General: Yes capillary refill normal, Yes no clubbing, cyanosis or edema and Yes no calf tenderness Results Reviewed Results Reviewed: XR LUMBAR SPINE 2-3V -08/18/24 Findings: Normal vertebral body alignment. Redemonstrated posterior decompression and fusion at L2-L3 with bilateral transpedicular screws interconnecting rods and interbody disc spacer. Alignment is stable. No acute fracture. Osteopenia. Multilevel facet arthropathy with intervertebral foraminal narrowing pronounced at L5-S1. IMPRESSION: Chronic changes without acute findings. MRI FINDINGS: Coronal Alignment: Mild mid lumbar levocurvature, stable in appearance. Sagittal Alignment: The lumbosacral spine is anatomically aligned in the sagittal plane, stable from previous study. Lumbosacral Junction: Normal. Vertebral Bodies: Normal height. Disc Spaces and Endplates: Mild disc space height loss asymmetric to the left at L5-S1, with disc desiccation, stable in appearance. Mild degrees of disc desiccation are also noted at L4-L5 and L3-L4, stable in appearance. Disc space heights are well maintained. Interbody fusion at L2-L3, unchanged in appearance. Spinal Canal: Fibrofatty infiltration of the filum terminale between L2 and the sacral dural sac, unchanged in appearance, without significant thickening. Bone Marrow: No significant marrow-replacing process or bone marrow edema. Small benign vertebral hemangioma on the right side of the L1 vertebral body, stable in appearance. Conus Medullaris: Terminates at L1. Morphology and signal is normal. No abnormal enhancement. Intradural Nerve Roots: Within normal limits. No abnormal intradural enhancement. L5-S1: Minor disc bulging noted with a small left inferior foraminal disc-osteophyte complex, stable in appearance with slight flattening of the ventral dural sac, unchanged in appearance. Mild ligamentum flavum thickening and moderate bilateral facet arthropathy is largely stable in appearance, with mild narrowing of the left subarticular recess without significant central spinal canal stenosis, unchanged in appearance. There is mild left-sided neural foraminal stenosis without neural impingement. L4-L5: Mild annular bulging noted with a tiny central annular fissure, stable in appearance. Slight flattening of the dural sac with ligamentum flavum thickening and moderate bilateral facet hypertrophic degenerative changes, similar to the previous exam, with mild narrowing of the subarticular zones bilaterally, stable in appearance. No significant central spinal canal stenosis or neural foraminal compromise. L3-L4: Minor annular bulging again noted with a small inferior foraminal disc protrusion on the left, stable in appearance. Ligamentum flavum thickening and moderate bilateral facet arthropathy noted without significant canal or neural foraminal stenosis. L2-L3: Status post laminectomy and posterior instrumented fusion, similar in appearance to the previous exam with a widely patent canal with dorsal epidural scar tissue, unchanged in appearance. No significant neural foraminal stenosis. L1-L2: No disc bulge or herniation. Facets are partially obscured by pedicle screw artifact. Suspect mild ligamentum flavum thickening and mild facet arthrosis without significant canal or neural foraminal stenosis. T12-L1: No disc bulge or herniation and no significant facet arthrosis, canal or neural foraminal stenosis. T11-T12: Central extruded disc herniation noted with mild cephalad migration, slightly diminished in size from previous exam without spinal cord impingement, canal or neural foraminal stenosis. There is moderate facet arthropathy on the left at T9-T10, stable in appearance which is partially imaged. Paraspinal/Retroperitoneal: The paravertebral soft tissues appear unremarkable. Bilateral adrenal enlargement is noted. See previous CT of the abdomen of 05/02/2020. MR/MR lumbar spine wo/w con IMPRESSION: 1. Status post instrumented fusion at the L2-L3 level with laminectomy changes, with no significant canal or foraminal compromise, stable in appearance. ? 2. Stable discogenic degenerative changes at multiple levels, with stable multilevel bilateral facet arthropathy. Multilevel disc bulging and foraminal disc protrusions are again noted, similar to the previous exam with no significant central spinal canal stenosis. No significant neural foraminal stenosis. No abnormal enhancement within the limitations of the study. Assessment & Plan Assessment & Plan (1) Failed back syndrome of lumbar spine: Onset Date: ~04/2021 Code(s): M96.1 - Postlaminectomy syndrome, not elsewhere classified Category: Medical (2) Fibromyalgia: Code(s): M79.7 - Fibromyalgia Category: Medical (3) Obesity (BMI 30-39.9): Code(s): E66.9 - Obesity, unspecified Category: Medical (4) Lumbar spondylosis: Code(s): M47.816 - Spondylosis without myelopathy or radiculopathy, lumbar region Category: Medical Plan Discussed interventional treatments for axial and discogenic low back pain, including diagnostic vs therapeutic injections, neuromodulation and RFA procedures. For axial low back pain will schedule diagnostic bilateral L3-L4 DR L5 medial branch blocks with local and fluoroscopy. If she has significant relief from the diagnostic blocks for his axial low back pain, will consider either therapeutic injections, Sprint PNS or RFA depending on her preference. Expectations, risks and benefits were reviewed. Patient is awares she will be contacted to schedule this procedure. All questions were answered and the patient is in agreement of plan. Follow-up after injections and sooner as needed. Coding Level of Care Code Est Pt Level 4 (08740) Complex EM visit Add On G2211 Diagnoses Failed back syndrome of lumbar spine M96.1 Fibromyalgia M79.7 Obesity (BMI 30-39.9) E66.9 Lumbar spondylosis M47.811
[2024-08-26 13:04] VITALS: BP 125/58; PULSE 73; O2SAT 96; BMI 37.3
--- OUTSIDE RECORDS SUMMARY | 2024-08-26 13:36 | XMS_ITS | Data Portability ---
Author Organization [employer] [facility], [facility] Address [address] [place] [phone] Care Team Providers Care Pellet Post Inspector Name Role Phone HIM CCA OTHER Assessment Encounter Date Assessment Date Assessment LastModified by Organization Details LastModified Time 10/22/2023 10/22/2023 I provided real -time medical direction via phone for this encounter and was available for additional phone-based assistance as needed. I have reviewed and agree with the Assessment and Plan as documented by the Payment Collector. Patient given the opportunity to ask questions. Our service contacted for an assessment of: Urinary symptoms As per above, patient with approximately 24 hours of dysuria, frequency. No history of frequent urinary tract infections. Denies fever, chills, abdominal pain, back pain, flank pain. Per breast puller on the scene, Vital signs are stable [...] Time Details Appointments None recorded . Lab urinalys is, dipstick 2023 024 GIO [facility], [address] [place] [address], [phone], 09:18:24 culture, urine 2023 024 [place] [address] [facility], [address] [facility], [place], [address], 4 09:55:32 urinalys is, dipstick 2023 024 GIO [facility], [address] [place] [address], [address], 4 09:18:51 BMP, serum or plasma 2022 023 [email or web address] [facility], [address] [place] [address], [address], 3 13:31:51 BMP, serum or plasma 2022 023 [facility], [address] [place] [address], [address], 3 19:46:18 Referral None recorded . Procedures None recorded . Surgeries None recorded . Imaging None recorded . Medication Orders levoflox acin 500 mg tablet 2023 024 GIO [facility], [address] [facility], [place], [address], 4 21:23:53 lactated Ringers intraven ous solution 2022 023 [email or web address] [facility], [address] [facility], [place], [address], 3 12:22:06 ondanset melissa 4 mg disinteg rating tablet 2022 023 GIORUBY [facility], [address] [facility], [place], [address], 3 13:33:30 sodium chloride 0.9 % intraven ous solution 2022 023 [email or web address] [facility], [address] [place], [address], 3 13:32:47 ondanset melissa HCl (PF) 4 mg/2 mL injectio n solution 2022 023 [email or web address] [facility], [address] [place], [address], 3 13:32:47 meclizin e 25 mg tablet 2022 023 [facility], [address] [place], [address], 3 19:55:10 Patient TargetsNo targets recorded. Patient Instructions Encounter Date Encounter Id Patient Instructions Last Modified By Organization Details Last Modified Time 02/23/2023 [id number] orthostatic vitals* GIO Not available 02/29/2024 05:01:31 Reason for Referral None Reported. Results Created Date Observation Date Name Description Value Unit Range Abnormal Flag Note LastModifiedBy Organization Detail LastModifiedTime 02/24/2002/23/2023 BMP, serum or plasm a BUN 19 Not Available [facility] [address], [address], 02/23/2023 19:45:16 02/24/20 23 02/23/2023 BMP, serum or plasm a CI- 99 Not Available [facility] [address], [address], 02/23/2023 19:45:16 02/24/20 23 02/23/2023 BMP, serum or plasm a CRE 0.7 Not Available [facility] [address], [address], 02/23/2023 19:45:16 02/24/20 23 02/23/2023 BMP, serum or plasm a GLU 162 Not Available [facility] [address], [address], 02/23/2023 19:45:16 02/24/20 23 02/23/2023 BMP, serum or plasm a K+ 4.2 Not Available [facility] [address], [address], 02/23/2023 19:45:16 02/24/20 23 02/23/2023 BMP, serum or plasm a Na+ 139 Not Available [facility] [address], [address], 02/23/2023 19:45:16 02/24/20 23 02/23/2023 BMP, serum or plasm a tCO2 20 Not Available [facility] [address], [address], 02/23/2023 19:45:16 03/01/20 23 03/01/2023 BMP, serum or plasm a BUN 23 Not Available [facility] [address], [address], 03/01/2023 13:31:01 03/01/20 23 03/01/2023 BMP, serum or plasm a CRE 0.7 Not Available [facility] [address], [address], 03/01/2023 13:31:01 03/01/20 23 03/01/2023 BMP, serum or plasm a GLU 131 Not Available [facility] [address], [address], 03/01/2023 13:31:01 03/01/20 23 03/01/2023 BMP, serum or plasm a K+ 4.6 Not Available [facility] [address], [address], 03/01/2023 13:31:01 03/01/20 23 03/01/2023 BMP, serum or plasm a Na+ 140 Not Available [facility] [address], [address], 03/01/2023 13:31:01 03/01/20 23 03/01/2023 BMP, serum or plasm a tCO2 28 Not Available [facility] [address], [address], 03/01/2023 13:31:01 Result Notes None recorded. Medical [...] % 118 mm[Hg] 76 mm[Hg] Not Available [facility] - production 3 18:33:45 Date Recorded Body temperature Respiratory rate Heart rate Body weight Oxygen saturation Oxygen saturation in Arterial blood by Pulse oximetry Systolic blood pressure Diastolic blood pressure Provider Name and Address Organization Details Last Updated DateTime 3 98.8 [degF] 16 /min 64 /min 776929. 76 g 98 % 98 % 126 [...] % 161 mm[Hg] 90 mm[Hg] Not Available [facility] - production 3 15:42:48 Date Recorded Body weight Body height Body temperature Oxygen saturation Oxygen saturation in Arterial blood by Pulse oximetry Respiratory rate Heart rate Systolic blood pressure Diastolic blood pressure Provider Name and Address Organization Details Last Updated DateTime 4 76082.6 g 152.4 cm 98.4 [degF] 96 % 96 % 14 /min 80 /min 124 mm[Hg] 80 mm[Hg] Not Available [facility] - production 4 21:21:02 Social History None recorded. Functional Status None recorded. Mental Status None recorded. Family History Nothing Reported. Medical History No medical history recorded. Gynecological HistoryNo gynecological history recorded. Obstetrics History GPAL:G 0 P 0 0 0 0 Past Encounters Encounter ID Performer Location Encounter Start Date Encounter Closed Date Diagnosis/Indication Diagnosis SNOMED-CT Code Diagnosis ICD10 Code Diagnosis Note [id number] Kesha Beck MD Main - [address] [address] 02/21/2023 15:44:06 02/22/2023 15:35:21 Dehydration 16396512 E86.0 [id number] Sajan Rueda MD [facility] - [address] [address] 02/23/2023 18:33:42 02/24/2023 07:20:36 Dizziness 703825669 R42 As noted, we were called to see this patient regarding concerns of dizziness/ unsteadine ss. Evaluation in the field was performed by my breast puller colleague, as noted above, I provided real-time [...] uncertain etiology, ddx includes hypovolemi a, meds, BANKING AND FINANCE INSTRUCTOR or PNS process, including focal lesions, neuropathy [...] particular ly falling, confusion, face/arm/l eg weakness. [id number] Madelyn Robertson MD Main - [facility] [address] [place] [address] 03/01/2023 13:28:34 03/04/2023 11:06:40 Acute gastroenteritis 16616568 K52.9 Evaluation in the field was performed by my breast puller colleague, as noted above, I provided real-time [...] shortness of breath, cough, chest pain, fever. [id number] Carmen Pemberton MD Main - [address] [address] 03/02/2023 11:45:43 03/04/2023 11:11:38 Acute gastroenteritis 61035681 K52.9 67 yo w/ gastroente lashanda, seen [...] on Friday morning. Questions answered; pt and breast puller agreeable with plan [id number] Jose Hawk MD Main - [address] [address] 04/06/2023 15:42:46 04/07/2023 08:17:20 Syncope and collapse [id number] R55 This 67-year-ol d female has had two episodes of syncope without warning in the past 24 hours. She did hit her head and now complains of head and neck pain. I recommende d that she go to the ER for further evaluation and treatment. The patient resisted this recommenda tion, so I instructed the breast puller to try and change her mind. [id number] Alie Dillard MD Main - [address] [address] 10/22/2023 21:20:49 10/23/2023 11:15:53 Urinary symptoms [id number] R39.9 Health Concerns Section Related Observation LastModified by Organization Detai ls LastModified Time None Recorded Concern Status LastModified by Organization Details LastModified Time None Recorded Advance Directives Directive None Recorded Payers Encounter Date Sequence Insurance Name Policy Number Policy Maradiaga Covered Member ID Maradiaga Member ID Guarantor Name 02/23/2023 1 [facility] - DOS ON OR AFTER 2022 - DUAL ELIGIBLE - [facility] OPTIONS AND ONE CARE (MEDICARE REPLACEMENT/ADV ANTAGE - HMO) Sabrina Mcqueen [id number] Sabrina Mcqueen 03/01/2023 1 [facility] - DOS ON OR AFTER 2022 - DUAL ELIGIBLE - [facility] OPTIONS AND ONE CARE (MEDICARE REPLACEMENT/ADV ANTAGE - HMO) Sabrina Mcqueen [id number] Sabrina Mcqueen 03/02/2023 1 [facility] - DOS ON OR AFTER 2022 - DUAL ELIGIBLE - [facility] OPTIONS AND ONE CARE (MEDICARE REPLACEMENT/ADV ANTAGE - HMO) Sabrian Mcqueen [id number] Sabrina Mcqueen 04/06/2023 1 [facility] - DOS ON OR AFTER 2022 - DUAL ELIGIBLE - [facility] OPTIONS AND ONE CARE (MEDICARE REPLACEMENT/ADV ANTAGE - HMO) Sabrina Mcqueen [id number] Sabrina Mcqueen 10/22/2023 1 [facility] - DOS ON OR AFTER 2022 - DUAL ELIGIBLE - [facility] OPTIONS AND ONE CARE (MEDICARE REPLACEMENT/ADV ANTAGE - HMO) Sabrina Mcqueen [id number] Sabrina Mcqueen Notes Date Note Type Note Provider Name and Address Organization Details Recorded Time 02/23/2023 text/html [facility] Nursing Assessment: Reason For Request: Dizziness Chief Complaints: Syncope/Dizziness/ Lightheadedness PMH: COPD/Asthma Comments: Referral taken via Secondary English Teacher [id number]. Member identified via /name. [facility]. During visit it [...] .................. .................. .................. .................. .................. .................. ............... Payment Collector Note From Man Bolton: Dispatched to the call address for the female with dizziness. Pt states [facility] and was given 1L of fluid. Pt [...] ............... Disposition: Nissa Sajan Rueda MD [address] [facility],[address], [place], [address], [place] - [employer] 02/24/2023 15:04:28 03/01/2023 text/html [facility] Nursing Assessment: [...] .................. .................. .................. .................. .................. .................. ............... Payment Collector Note From Himanshu Payne: pt requesting visit [...] POC bloodwork drawn, unremarkable. Sent results to [facility], [facility] contacted [facility] ordered 1L of NS and 4MG of zofran IVP. [facility] sent prescription for Zofran to pt's pharmacy. Pt educated on s/s warranting a 911 call/trip to the hospital. Pt advised to F/U with PCP or [facility] if symptoms persist or worsen. [facility] Lab Orders: BMP, serum or plasma: Performed .................. .................. .................. .................. .................. .................. .................. ............... Disposition: Fulfilled Madelyn Robertson MD [address] [place] [address],[address], [place], [address], [facility] - [employer] 03/01/2023 14:39:58 03/02/2023 text/html [facility] Nursing Assessment: Chief Complaints: Abdominal Pain, Pain PMH: COPD/Asthma Allergies: Unknown Comments: Member was evaluated yesterday by [facility] - Reports s/s remain the same and [...] POC bloodwork drawn, unremarkable. Sent results to [facility], [facility] contacted [facility] ordered 1L of NS and 4MG of zofran IVP. [facility] sent prescription for Zofran to pt's pharmacy. Pt educated on s/s warranting a 911 call/trip to the hospital. Pt advised to F/U with PCP or [facility] if symptoms persist or worsen. Shreyas TORRES .................. .................. .................. .................. .................. .................. .................. ............... Payment Collector Note From Man Bolton: Dispatched to the [...] airway open and patent. Breathing non laborer high density press. Able to speak in full sentences, -JVD, -HEENT, pupils PERRL, and soft non tender/distended, skin PWD with good turgid, lung sounds clear an equal bilaterally. [facility] consulted. IV established. BMP conducted, 1L LR given. Red flags discussed. All times are approx. .................. .................. .................. .................. .................. .................. .................. ............... Disposition: Fulfilled Carmen Pemberton MD [address] [facility],[address], [place], [address], [employer] [facility] [employer] 03/03/2023 12:22:18 04/06/2023 text/html CRC Nursing Assessment: Chief Complaints: Syncope/Dizziness/ Lightheadedness, Falls PMH: COPD/Asthma Allergies: Unknown Comments: + dizziness since yesterday. Fall x2 yesterday and today. Unsteady gait due to dizziness. Unknown LOC. Possible head strike. c/o left wrist pain. Advised ED for further evaluation. Member declined ED after education but will accept [facility] visit first. Red flags reviewed. Instructed to call 911 for worsening symptoms. Jose Hawk MD [address] [facility],[address], [place], [address], [employer] 04/06/2023 15:45:49 10/22/2023 text/html CRC Nurse Triage Notes (Morenita Dawson): Chief Complaints: Pain PMH: COPD/Asthma Allergies: Unknown Comments: [employer] speaking member. 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 Verified name//address. Member reports left flank pain that is getting worse. Reports multiple falls. Last fall on Friday. Member states she was evaluated s/p falls. Denies fevers. Denies urinary symptoms. Denies chest pain or shortness of breath. Advised member to call 911 with worsening signs/symptoms. .................. .................. .................. .................. .................. .................. .................. ............... Payment Collector Note From Costa Nielsen: Patient conscious alert [...] sample culture to [facility] values to [facility]. [facility] orders levafloxacin 500 mg PO and will prescribe more to patients local pharmacy. Red flags and patient education discussed. Consent, signed and uploaded times two .................. .................. .................. .................. .................. .................. .................. ............... Disposition: Fulfilled Alie Dillard MD [address] [place] [address],[address], [place], [address], [employer], [employer] 10/22/2023 21:25:11 OBGyn Episode No OBEpisode recorded.
--- OUTSIDE RECORDS SUMMARY | 2024-08-26 13:36 | XMS_ITS | Clinical Summary ---
Author Organization [facility] Address [address] [place] [phone] Phone Care Team Providers Care Plaque Maker Name Role Phone Henrique Soler MD Primary Care Provider Allergies Active Allergy Reactions Criticality Noted Date Comments Acetaminophen Rash 07/18/2015 Acetaminophen-Codeine Rash 07/10/2015 Codeine Rash 07/10/2015 Ibuprofen Rash 07/10/2015 Montelukast 07/18/2015 Oxycodone Rash 07/10/2015 Propoxyphene Rash 07/10/2015 Tramadol Rash 07/10/2015 Medications Ventolin HFA 90 mcg/actuation inhaler 05/03/2024 Active [...] Plan: 08/26/2017 - depo-medrol 20 mg injection Surgical History Surgery Date Site/Laterality Comments BACK [...] drink = 0.6 oz pur e alcohol) Comments Unknown Sex and Gender Information Value Date Recorded Sex Assigned at Female 05/18/2024 4:41 PM EST Legal Sex Female 5:47 AM EST Gender Identity Female 05/18/2024 4:41 PM EST Sexual Orientation Straight 05/18/2024 4: 41 PM EST Obstetrics History Last Filed Vital Signs Vital [...] of Health Screening 06/09/2022 COVID-19 Vaccine ( season) 2024 Influenza Vaccine (#1) 2024 2, 04/09/2021, 09/15/2020, Additional history exists Pneumococcal Vaccine: 50+ Years (3 of 3 - PCV20 or PCV21) 09/28/2025 09/28/2020, 02/19/2015 DTaP,Tdap,and Td Vaccines (3 [...] patient's age to complete this topic Meningococcal B Vacine Aged Out No lo nger eligible based on patient's age to complete this topic RSV Immunization Patients Under 20 months Aged Out No longer eligible based on patient's age to complete this topic Varicella Vaccines Aged Out No longer eligible based on patient's age to complete this topic Procedures Procedure Name Priority Date/Time Associated Diagnosis Comments SCR MAMMO BI INCL CAD Routine 09/02/2017 2:11 PM EST Encounter for screening mammogram for malignant neoplasm of breast from Last 3 Months or Most Recently Relevant to Health Maintenance Results * SCR MAMMO BI INCL CAD (09/02/2017 [...] Low (<15%) Akil Hernandez MD IMG XR PROCEDURES Final Result from Last 3 Months or Most Recently Relevant to Health Maintenance Insurance MEDICAID - [place] [facility] [facility] [employer] MEDICARE Member Subscriber Plan / Payer (Ef fective 2022-Present) Name:Sabrina Mcqueen Relation to Subscriber:Self Name:Sabrina Mcqueen Payer ID:[id number] Group ID:Not on file Type:Not on file Address: [facility] [place] [address] Advance Directives Documents on File Type Date Recorded Patient Corporate Health Consultant Expl anation Health Care Decision (hx) 04/01/2016 [...] Care Decision (hx) 04/01/2016 AD TEE DIRECTIVE Care Teams Plaque Maker Relationship Specialty Start Date End Date Henrique Soler MD [address] [place] [address] Rima Formerly named [facility] ABIGAIL Walsh PCP - General Internal Medicine 06/18/14
== END 2024-08-26 13:22 | disposition home or self-care (01) ==
PROVIDERS: PCP Internal Medicine; Referring Provider Internal Medicine; Visit Provider Nurse Practitioner Family
DX: M96.1 Postlaminectomy syndrome, not elsewhere classified (principal); M79.7 Fibromyalgia; E66.9 Obesity, unspecified; M47.816 Spondylosis without myelopathy or radiculopathy, lumbar region
CPT/HCPCS: 99214; G2211

== ENCOUNTER → 2024-08-26 12:40 | Outpatient (BNVA) | payer OTHER, SELFPAY | PROVIDERS: PCP Internal Medicine; Referring Provider Internal Medicine; Visit Provider Nurse Practitioner Family | DX: M96.1 Postlaminectomy syndrome, not elsewhere classified (principal); M79.7 Fibromyalgia; M47.816 Spondylosis without myelopathy or radiculopathy, lumbar region; E66.9 Obesity, unspecified; Z68.37 Body mass index [BMI] 37.0-37.9, adult | CPT/HCPCS: 99212 ==

== ENCOUNTER 2024-10-12 12:05 | Outpatient (REF) | payer OTHER, SELFPAY ==
--- NOTE | ~2024-10-12 | XR_ITS ---
EXAMINATION: XR CHEST CLINICAL INFORMATION: R05.9 - Cough, unspecified COMPARISON: April 30, 2022. TECHNIQUE: 2 views of the chest were obtained. FINDINGS: No consolidation, pleural effusion or pneumothorax. Cardiomediastinal silhouette size is normal. Multilevel thoracic spondylosis. Radiopaque anchors in both humeral heads. Status post lumbar fusion with metallic hardware at not in the [id number]. XR/XR chest 2V IMPRESSION: No acute airspace disease. Electronically signed by: Zhou Gibbs MD 10/12/2024 02:08 PM EDT
--- OUTSIDE RECORDS SUMMARY | 2024-10-12 16:42 | XMS_ITS | Encounter Summary ---
Author Organization [employer] [facility] Address [address] [place] [address] Care Team Providers Care Replenishment Specialist Name Role Phone Bennie Yang MD Primary Care Provider [phone] Henrique Soler MD Primary Care Provider Unava ilable Encounter Details Date Type Department Care Team Description 08/11/2015 Transfer Records Medical Records [address] [place], [place] [id number] Abstract, Provider Social History Tobacco Use Types [...] on filedocumented in this encounter Care Teams Replenishment Specialist Relationship Specialty Start Date End Date Bennie Yang MD [address] [place] [address] PCP - General Internal Medicine 06/19/15 03/31/18 Henrique Soler MD [address] [place], [place] [id number] PCP - General Internal Medicine 04/01/18 documented as of this encounter
--- OUTSIDE RECORDS SUMMARY | 2024-10-12 16:42 | XMS_ITS | Encounter Summary ---
Author Organization [facility] Address [address] [place] [address] Care Team Providers Care Batteryman Name Role Phone Henrique Soler MD Primary Care Provider Marcia wiley Encounter Details Date Type Department Care Team Description 05/07/2023 SCAN Medical Records [address] [place], [place] [id number] [place] [address], [facility] Social History Tobacco Use Types Packs/Day Years [...] on filedocumented in this encounter Care Teams Batteryman Relationship Specialty Start Date End Date Henrique Soler MD PCP - General Internal Medicine 04/01/18 documented as of this encounter
--- OUTSIDE RECORDS SUMMARY | 2024-10-12 16:42 | XMS_ITS | Encounter Summary ---
Author Organization [facility] Address [id number] [place] [id number] Care Team Providers Care Agronomy Technician Name Role Phone Henrique Soler MD Primary Care Provider Reason for Visit * Reason Comments Vomiting Diarrhea Cough Encounter Details Date Type Department Care Team (Late st Contact Info) Description 10/07/2024 6:14 PM EDT - 10/08/2024 1:[address] [facility] Emergency [address] [place] [address] Viral gastroenteritis (Primary Dx) Discharge [...] por elegir el Departamento de Urgencias del [facility] M??d[facility] para rodrigues atenci??n de [...] Mant??ngase kyleigh hidratado y descanse lo suficiente. [place] Zo[facility] seg??n lo prescrito si presenta n??useas o v??mitos adicionales. Consulte con rodrigues m??dico de cabecera para alena reevaluaci??n, un manejo adicional de sangeeta s??ntomas y atenci??n preventiva continua. Si no tiene un m??dico de cabecera, llame a [facility] al [phone] para asignarle nolvia nuevo. Regrese al departamento de emergencias si desarrolla un cambio repentino y haley en sangeeta s??ntomas,fiebre de m??s de 100.4, v??mitos severos o recurrentes o un aumento repentino del dolor o si experimenta cualquier otro s??ntoma o inquietud nuevo o que empeora. Thank you for choosing [facility]'s Emergency Department for your care today. At [...] a primary care physician, please call the [facility] at [phone] toecritical access hospitalish a new primary care physician. Please return to the emergency department if you develop a sudden severe change in your symptoms, afever over 100.4, severe or recurrent vomiting, or a sudden increase in pain or if you experience any other new or worsening symptoms or concerns. * Attachments The following attachments cannot be sent through Care Everywhere. * Gastroenteritis (English) documented in this encounter Medications at Time [...] REFLEX MICROSCOPIC AND CULTURE - Abnormal Specific [place] Urine 1.020 pH, Urine 6.0 Leukocytes, Urine [...] Detected Narrative: Testing was performed using the [employer] Respiratory Pathogen PCR Assay. All results must [...] Procedure Abnormality Status --------- ------ CBC auto differential[[id number]] Abnormal Final result Please view results for these tests on the individual orders. URINALYSIS WITH REFLEX MICROSCOPIC AND CULTURE Narrative: The following orders were created for panel order Urinalysis with reflex microscopic and culture. Procedure Abnormality Status --------- ------ Urinalysis with reflex ...[[id number]] Abnormal Final result Mercedes urine culture tube[[id number]] Final result Please view results for these [...] AM EDT Office Visit Orthopedic Surgery - [place] [address] [phone] Tyshawn Milner, DPM [address] [address] documented as of this encounter Procedures Procedure [...] if clinically indicated. 10/09/2024 9:41 AM EDT [facility] Urine Urine specimen obtained by clean catch procedure / Unknown Non-blood Collection / Unknown 10/07/2024 9:54 PM EDT 10/07/2024 10:53 PM EDT Jacques GREENWOOD LAB MICROBIOLOGY - GENERAL ORDER STEVIE Final Result Performing Organization Address City/[facility]/ZIP Co de Phone Number [facility] [address] [place] [address], [place] [phone] * Mercedes urine culture tube (10/07/2024 9:54 PM EDT) Pathologist [facility] Extra Tube Hold for add-ons. 10/08/2024 12:02 AM EDT [facility] Comment:Auto resulted. Urine Urine specimen obtained by clean catch procedure / Unknown Non-blood Collection / Unknown 10/07/2024 9:54 PM EDT 10/07/2024 10:08 PM EDT Jacques GREENWOOD LAB URINE ORDERABLES Final Resul t Performing Organization Address [facility]/ZIP Co de Phone Number [facility] [address] [place] [address], [place] [phone] * (ABNORMAL) Urinalysis with reflex microscopic and culture (10/07/2024 9:54 PM EDT) [facility] Specific [place] Urine 1.020 1.003 - 1.030 LAB URINALYSIS - AUTOMATED METHOD 10/07/2024 10:53 PM EDT [facility] pH, Urine 6.0 5.0 - 8.0 pH LAB URINALYSIS - AUTOMATED METHOD 10/07/2024 10:53 PM EDT [facility] Leukocytes, Urine Moderate(A) Negative LAB URINALYSIS - AUTOMATED METHOD 10/07/2024 10:53 PM EDT [facility] Nitrite, Urine Negative Negative LAB URINALYSIS - AUTOMATED METHOD 10/07/2024 10:53 PM EDT [facility] Protein, Urine 30(A) <=Trace mg/dL LAB URINALYSIS - AUTOMATED METHOD 10/07/2024 10:53 PM [facility] Glucose, Urine Negative Negative mg/dL LAB URINALYSIS - AUTOMATED METHOD 10/07/2024 10:53 PM [facility] Ketones, Urine 15(A) Negative mg/dL LAB URINALYSIS - AUTOMATED METHOD 10/07/2024 10:53 PM [facility] Urobilinogen , Urine 0.2 0.2 - 1.0 mg/dL LAB URINALYSIS - AUTOMATED METHOD 10/07/2024 10:53 PM [facility] Bilirubin, Urine Negative Negative LAB URINALYSIS - AUTOMATED METHOD 10/07/2024 10:53 PM [facility] Blood, Urine Small(A) Negative LAB URINALYSIS - AUTOMATED METHOD 10/07/2024 10:53 PM [facility] RBC, Urine 8.1(H) 0 - 4 /HPF LAB URINALYSIS - AUTOMATED METHOD 10/07/2024 10:53 PM [facility] WBC, Urine 10.0(H) 0 - 4 /HPF LAB URINALYSIS - AUTOMATED METHOD 10/07/2024 10:53 PM [facility] Squamous Epithelial, Urine >100(H) 0 - 60 /LPF LAB URINALYSIS - AUTOMATED METHOD 10/07/2024 10:53 PM [facility] Crystals, Urine Light Amorphous Urate crystals. /LPF 10/07/2024 10:53 PM [facility] Bacteria, Urine Many(A) Negative /HPF LAB URINALYSIS - AUTOMATED METHOD 10/07/2024 10:53 PM [facility] Hyaline Casts, Urine 0 0 - 3 /LPF LAB URINALYSIS - AUTOMATED METHOD 10/07/2024 10:53 PM [facility] Urine Urine specimen obtained by clean catch procedure / Unknown Non-blood Collection / Unknown 10/07/2024 9:54 PM EDT 10/07/2024 10:08 PM EDT Jacques GREENWOOD LAB URINE ORDERABLES Final Resul t [facility] [address] [place] [address], [place] [phone] * CT Abdomen Pelvis w Contrast (10/07/2024 [...] panel molecular study (10/07/2024 7:07 PM EDT) [facility] Adenovirus Detection by PCR Not Detected Not Detected LAB MICROBIOLOGY METHOD 10/07/2024 9:15 PM EDT [facility] Influenza A PCR Not Detected Not Detected LAB MICROBIOLOGY METHOD 10/07/2024 9:15 PM EDT [facility] Influenza B PCR Not Detected Not Detected LAB MICROBIOLOGY METHOD 10/07/2024 9:15 PM EDT [facility] Coronavirus 229E Not Detected Not Detected LAB MICROBIOLOGY METHOD 10/07/2024 9:15 PM EDT [facility] Coronavirus HKU1 Not Detected Not Detected LAB MICROBIOLOGY METHOD 10/07/2024 9:15 PM EDT [facility] Coronavirus OC43 Not Detected Not Detected LAB MICROBIOLOGY METHOD 10/07/2024 9:15 PM EDT [facility] Coronavirus NL63 Not Detected Not Detected LAB MICROBIOLOGY METHOD 10/07/2024 9:15 PM EDT [facility] Parainfluenza Virus 1 Not Detected Not Detected LAB MICROBIOLOGY METHOD 10/07/2024 9:15 PM EDT [facility] Parainfluenza Virus 2 Not Detected Not Detected LAB MICROBIOLOGY METHOD 10/07/2024 9:15 PM EDT [facility] Parainfluenza Virus 3 Not Detected Not Detected LAB MICROBIOLOGY METHOD 10/07/2024 9:15 PM EDT [facility] Parainfluenza Virus 4 Not Detected Not Detected LAB MICROBIOLOGY METHOD 10/07/2024 9:15 PM EDT [facility] RSV PCR Not Detected Not Detected LAB MICROBIOLOGY METHOD 10/07/2024 9:15 PM EDT [facility] Human Metapneumovirus A and B Not Detected Not Detected LAB MICROBIOLOGY METHOD 10/07/2024 9:15 PM EDT [facility] Rhinovirus/Entero virus Not Detected Not Detected LAB MICROBIOLOGY METHOD 10/07/2024 9:15 PM EDT [facility] Bordetella pertussis Not Detected Not Detected LAB MICROBIOLOGY METHOD 10/07/2024 9:15 PM EDT [facility] Bordetella parapertussis Not Detected Not Detected LAB MICROBIOLOGY METHOD 10/07/2024 9:15 PM EDT [facility] Mycoplasma pneumo by PCR Not Detected Not Detected LAB MICROBIOLOGY METHOD 10/07/2024 9:15 PM EDT [facility] Chlamydia pneumoniae Not Detected Not Detected LAB MICROBIOLOGY METHOD 10/07/2024 9:15 PM EDT [facility] SARS COV-2 Not Detected Not Detected LAB MICROBIOLOGY METHOD 10/07/2024 9:15 PM EDT [facility] Swab Both anterior nares / Unknown Non-blood Collection / Unknown 10/07/2024 7:07 PM EDT 10/07/2024 8:01 PM EDT [facility] - 10/07/2024 9:15 PM EDT Testing was performed using the [employer] Respiratory Pathogen PCR Assay. All results must [...] MICROBIOLOGY - GENERAL KYLEE EVANS Final Result [facility] [address] [place] [address], * (ABNORMAL) Manual differential (10/07/2024 5:19 PM EDT) Neutrophils % 39.0 % LAB HEMETOLOGY METHOD 10/07/2024 6:37 PM EDT [facility] Lymphocytes % 36.0 % LAB HEMETOLOGY METHOD 10/07/2024 6:37 PM EDT [facility] Reactive Lymphocyte 12.00 % LAB HEMETOLOGY METHOD 10/07/2024 6:37 PM EDT [facility] Monocytes % 10.0 % LAB HEMETOLOGY METHOD 10/07/2024 6:37 PM [facility] Eosinophils % 2.0 % LAB [facility]OLOGY [facility] Basophils % 1.0 % LAB HEMETOLOGY METHOD 10/07/2024 6:37 PM [facility] Neutrophils Absolute Manual 2.73 1.50 - 7.00 K/mcL LAB HEMETOLOGY METHOD 10/07/2024 6:37 PM [facility] Lymphocytes Absolute 2.52 1.00 - 5.00 K/mcL LAB HEMETOLOGY METHOD 10/07[facility]2024 6:[facility] Reactive Lymph Abs Manual 0.84(H) 0.00 - 0.00 lym LAB HEMETOLOGY METHOD 10/07/2024 6:37 [facility] Monocytes Absolute Manual 0.70 0.20 - 1.00 K/mcL LAB HEMETOLOGY METHOD 10/07/2024 6:37 PM [facility] Eosinophils Absolute Manual 0.14 0.00 - 0.50 K/mcL LAB HEMETOLOGY METHOD 10/07/2024 6:37 PM EDT [facility] Basophils Absolute Manual 0.07 0.00 - 0.20 K/mcL LAB HEMETOLOGY METHOD 10/07/2024 6:37 [facility] Rbc Morphology Consistent with indices Consistent with indices, Normal for LAB HEMETOLOGY METHOD 10/07/2024 6:37 [facility] Platelet Morphology - WAM See Note(A) Normal LAB HEMETOLOGY METHOD 10/07/2024 6:37 [facility] Comment:PLT: Normal Blood Venous blood specimen / Unknown Venipuncture / Unknown 10/07/2024 5:19 PM EDT 10/07/2024 5:31 PM EDT us Lilian Parks DO LAB BLOOD ORDERABLES Elenita l Result [facility] [address] [place] [address], [place] [phone] * (ABNORMAL) CBC auto differential (10/07/2024 5:19 PM EDT) WBC 7.0 4.8 - 10.8 K/mcL LAB HEMETOLOGY METHOD 10/07/2024 6:37 PM EDT [facility] RBC 5.20(H) 3.80 - 4.80 M/mcL LAB HEMETOLOGY METHOD 10/07/2024 6:37 PM EDT [facility] Hemoglobin 14.7 11.5 - 16.0 g/dL LAB HEMETOLOGY METHOD 10/07/2024 6:37 PM EDT [facility] Hematocrit 45.3 35.0 - 47.0 % LAB HEMETOLOGY METHOD 10/07/2024 6:37 PM EDT [facility] MCV 87.6 79.0 - 98.0 FL LAB HEMETOLOGY METHOD 10/07/2024 6:37 PM EDT [facility] MCH 28.4 27.0 - 32.0 pcg LAB HEMETOLOGY METHOD 10/07/2024 6:37 PM EDT [facility] MCHC 32.5 32.0 - 37.0 g/dL LAB HEMETOLOGY METHOD 10/07/2024 6:37 PM EDT [facility] RDW 13.8 11.0 - 15.0 % LAB HEMETOLOGY METHOD 10/07/2024 6:37 PM EDT [facility] Platelets 263 130 - 400 K/mcL LAB HEMETOLOGY METHOD 10/07/2024 6:37 PM EDT [facility] MPV 10.9 7.0 - 11.0 FL LAB HEMETOLOGY METHOD 10/07/2024 6:37 PM EDT [facility] NRBC 0.0 <1.0 % LAB HEMETOLOGY METHOD 10/07/2024 6:37 PM EDT [facility] NRBC Absolute 0.00 <0.10 K/mcL LAB HEMETOLOGY METHOD 10/07/2024 6:37 PM EDT [facility] Blood Venous blood specimen / Unknown Venipuncture / Unknown 10/07/2024 5:19 PM EDT 10/07/2024 5:31 PM EDT [facility] Bakari Jackson Parks LAB BLOOD ORDERABLES Elenita l Result Performing Organization Address City/[facility]/ZIP Co de Phone Number [facility] [address] [place] [address], [place] [phone] * Lipase (10/07/2024 5:19 PM EDT) [facility] Lipase 30 13 - 75 unit/L LAB CHEMISTRY METHOD 10/07/2024 5:56 PM EDT [facility] Blood Venous blood specimen / Unknown Venipuncture / Unknown 10/07/2024 5:19 PM EDT 10/07/2024 5:31 PM EDT [employer] LAB BLOOD ORDERABLES Elenita l Result [facility] [address] [place] [address], [place] [phone] * Magnesium (10/07/2024 5:19 PM EDT) [facility] Magnesium 2.1 1.9 - 2.6 mg/dL LAB CHEMISTRY METHOD 10/07/2024 5:56 PM [facility] Blood Venous blood specimen / Unknown Venipuncture / Unknown 10/07/2024 5:19 PM EDT 10/07/2024 5:31 PM EDT us Lilian Parks DO LAB BLOOD ORDERABLES Elenita l Result [facility] [address] [place] [address], [place] [phone] * (ABNORMAL) Comprehensive metabolic panel (10/07/2024 5:19 PM EDT) Sodium 137 133 - 145 mmol/L LAB CHEMISTRY METHOD 10/07/2024 6:14 PM [facility] Potassium 4.0 3.5 - 5.5 mmol/L LAB CHEMISTRY METHOD 10/07/2024 6:14 PM [facility] Chloride 103 96 - 110 mmol/L LAB CHEMISTRY METHOD 10/07/2024 6:14 PM [facility] CO2 27 21 - 32 mmol/L LAB CHEMISTRY METHOD 10/07/2024 6:14 PM [facility] Anion Gap 7 3 - 11 LAB CHEMISTRY METHOD 10/07/2024 6:14 PM [facility] Glucose 141(H) 70 - 100 mg/dL LAB CHEMISTRY METHOD 10/07/2024 6:14 PM [facility] BUN 29(H) 5 - 25 mg/dL LAB CHEMISTRY METHOD 10/07/2024 6:14 PM [facility] Creatinine 1.07 0.50 - 1.10 mg/dL LAB CHEMISTRY METHOD 10/07/2024 6:14 PM [facility] eGFR 57(L) >=60 mL/min/1. 73m2 LAB CHEMISTRY METHOD 10/07/2024 6:14 PM EDT [facility] Comment:Calculation based on the??Chronic Kidney Disease Epidemiology Collaboration (CKD-EPI) equation refit??without adjustment for race. BUN/Creatinine Ratio 27.1 LAB CHEMISTRY METHOD 10/07/2024 6:14 PM [facility] Calcium 9.4 8.5 - 10.5 mg/dL LAB CHEMISTRY METHOD 10/07/2024 6:14 PM [facility] AST (SGOT) 22 10 - 42 unit/L LAB CHEMISTRY METHOD 10/07/2024 6:14 PM [facility] ALT (SGPT) 23 10 - 60 unit/L LAB CHEMISTRY METHOD 10/07/2024 6:14 PM [facility] Alkaline Phosphatase 77 42 - 121 unit/L LAB CHEMISTRY METHOD 10/07/2024 6:14 PM [facility] Total Protein 8.0 6.0 - 8.0 g/dL LAB CHEMISTRY METHOD 10/07/2024 6:14 PM [facility] Albumin 3.8 3.2 - 5.0 g/dL LAB CHEMISTRY METHOD 10/07/2024 6:14 PM [facility] Total Bilirubin 0.5 0.0 - 1.4 mg/dL LAB CHEMISTRY METHOD 10/07/2024 6:14 PM [facility] Blood Venous blood specimen / Unknown Venipuncture / Unknown 10/07/2024 5:19 PM EDT 10/07/2024 5:31 PM EDT us Lilian Parks DO LAB BLOOD ORDERABLES Elenita aaliyah Result [facility] [address] [place] [address], documented in this encounter Visit Diagnoses Diagnosis [...] 1 dose 2039 (Given - Provider: Jennifer Wu, MELISSA) sodium chloride 0.9 % bolus 1,000 [...] documented as of this encounter Care Teams Agronomy Technician Relationship Specialty Start Date End Date Henrique Soler MD [address] [place] [address] Dr [address] [place] PCP - General Internal Medicine 06/18/14 documented as of this encounter
--- OUTSIDE RECORDS SUMMARY | 2024-10-12 16:42 | XMS_ITS | Clinical Summary ---
Author Organization [facility] Address [address] [place] [id number] Phone Care Team Providers Care Controls Project Engineer Name Role Phone Henrique Soler MD Primary [...] EDT - 10/08/2024 1:34 AM EDT Emergency [facility] Emergency [address] [place] [address] Viral gastroenteritis (Primary Dx) Discharge Disposition: Home or Self Care 09/08/2024 10:45 AM EST Consult Orth[facility] [place] [address] [address] Tyshawn Milner, DPM Tendonitis, Achilles, [...] AM EDT Office Visit Orth[facility] [place] [address] [phone] Tyshawn Milner, DPM 175 [facility] [address] [place] [address] Health Maintenance Due Date Last Done Comments [...] and culture (10/07/2024 9:54 PM EDT) Specific [place] Urine 1.020 1.003 - 1.030 LAB URINALYSIS - AUTOMATED METHOD 10/07/2024 10:53 PM [facility] pH, Urine 6.0 5.0 - 8.0 pH LAB URINALYSIS - AUTOMATED METHOD 10/07/2024 10:53 PM [facility] Leukocytes, Urine Moderate(A) Negative LAB URINALYSIS - AUTOMATED METHOD 10/07/2024 10:53 PM [facility] Nitrite, Urine Negative Negative LAB URINALYSIS - AUTOMATED METHOD 10/07/2024 10:53 PM [facility] Protein, Urine 30(A) <=Trace mg/dL LAB URINALYSIS - AUTOMATED METHOD 10/07/2024 10:53 PM [facility] Glucose, Urine Negative Negative mg/dL LAB URINALYSIS - AUTOMATED METHOD 10/07/2024 10:53 PM [facility] Ketones, Urine 15(A) Negative mg/dL LAB URINALYSIS - AUTOMATED METHOD 10/07/2024 10:53 PM [facility] Urobilinogen , Urine 0.2 0.2 - 1.0 mg/dL LAB URINALYSIS - AUTOMATED METHOD 10/07/2024 10:53 PM [facility] Bilirubin, Urine Negative Negative LAB URINALYSIS - AUTOMATED METHOD 10/07/2024 10:53 PM [facility] Blood, Urine Small(A) Negative LAB URINALYSIS - AUTOMATED METHOD 10/07/2024 10:53 PM [facility] RBC, Urine 8.1(H) 0 - 4 /HPF LAB URINALYSIS - AUTOMATED METHOD 10/07/2024 10:53 PM [facility] WBC, Urine 10.0(H) 0 - 4 /HPF LAB URINALYSIS - AUTOMATED METHOD 10/07/2024 10:53 PM [facility] Squamous Epithelial, Urine >100(H) 0 - 60 /LPF LAB URINALYSIS - AUTOMATED METHOD 10/07/2024 10:53 PM EDT [facility] Crystals, Urine Light Amorphous Urate crystals. /LPF 10/07/2024 10:53 PM EDT [facility] Bacteria, Urine Many(A) Negative /HPF LAB URINALYSIS - AUTOMATED METHOD 10/07/2024 10:53 PM EDT [facility] Hyaline Casts, Urine 0 0 - 3 /LPF LAB URINALYSIS - AUTOMATED METHOD 10/07/2024 10:53 PM EDT [facility] Urine Urine specimen obtained by clean catch procedure / Unknown Non-blood Collection / Unknown 10/07/2024 9:54 PM EDT 10/07/2024 10:08 PM EDT Jacques [facility] LAB URINE ORDERABLES Final Resul t Performing Organization Address City/[facility]/ZIP Co de Phone Number [facility] [address] [place] [address], [place] [phone] * Mercedes urine culture tube (10/07/2024 9:54 PM EDT) Extra Tube Hold for add-ons. 10/08/2024 12:02 AM EDT [facility] Comment:Auto resulted. Urine Urine specimen obtained by clean catch procedure / Unknown Non-blood Collection / Unknown 10/07/2024 9:54 PM EDT 10/07/2024 10:08 PM EDT Jacques [facility]ENWO[facility] LAB URINE ORDERABLES Final Resul t Performing Organization Address City/[facility]/ZIP Co de Phone Number [facility] [address] [place] [address], [place] [phone] * Culture urine (10/07/2024 9:54 PM EDT) Culture, Urine 50,000-99,000 CFU/mL Mixed bacterial morphotypes present suggestive of possible contamination during collection. Suggest appropriate recollection if clinically indicated. 10/09/2024 9:41 AM EDT [facility] ([facility] Urine Urine specimen obtained by clean catch procedure / Unknown Non-blood Collection / Unknown 10/07/2024 9:54 PM EDT 10/07/2024 10:53 PM EDT us Jacques [facility]EN[facility] LAB MICROBIOLOGY - GENERAL ORDER STEVIE Final Result [facility] ([facility]) [facility] [address] [place] [address], [place] [phone] * CT Abdomen Pelvis w Contrast (10/07/2024 [...] by: Marcell Graham MD on 10/07/2024 21:38:17 Jacqeus [facility] PROCEDURES Final Result * Respiratory virus panel molecular study (10/07/2024 7:07 PM EDT) Adenovirus Detection by PCR Not Detected Not Detected LAB MICROBIOLOGY METHOD 10/07/2024 9:15 PM EDT [facility] Influenza A PCR Not Detected Not Detected LAB MICROBIOLOGY METHOD 10/07/2024 9:15 PM EDT [facility] Influenza B PCR Not Detected Not Detected LAB MICROBIOLOGY METHOD 10/07/2024 9:15 PM EDT [facility] Coronavirus 229E Not Detected Not Detected LAB MICROBIOLOGY METHOD 10/07/2024 9:15 PM EDT [facility] Coronavirus HKU1 Not Detected Not Detected LAB MICROBIOLOGY METHOD 10/07/2024 9:15 PM EDT [facility] Coronavirus OC43 Not Detected Not Detected LAB MICROBIOLOGY METHOD 10/07/2024 9:15 PM EDT [facility] Coronavirus NL63 Not Detected Not Detected LAB MICROBIOLOGY METHOD 10/07/2024 9:15 PM EDT [facility] Parainfluenza Virus 1 Not Detected Not Detected LAB MICROBIOLOGY METHOD 10/07/2024 9:15 PM EDT [facility] Parainfluenza Virus 2 Not Detected Not Detected LAB MICROBIOLOGY METHOD 10/07/2024 9:15 PM EDT [facility] Parainfluenza Virus 3 Not Detected Not Detected LAB MICROBIOLOGY METHOD 10/07/2024 9:15 PM EDT [facility] Parainfluenza Virus 4 Not Detected Not Detected LAB MICROBIOLOGY METHOD 10/07/2024 9:15 PM EDT [facility] RSV PCR Not Detected Not Detected LAB MICROBIOLOGY METHOD 10/07/2024 9:15 PM EDT [facility] Human Metapneumovirus A and B Not Detected Not Detected LAB MICROBIOLOGY METHOD 10/07/2024 9:15 PM EDT [facility] Rhinovirus/Entero virus Not Detected Not Detected LAB MICROBIOLOGY METHOD 10/07/2024 9:15 PM EDT [facility] Bordetella pertussis Not Detected Not Detected LAB MICROBIOLOGY METHOD 10/07/2024 9:15 PM EDT [facility] Bordetella parapertussis Not Detected Not Detected LAB MICROBIOLOGY METHOD 10/07/2024 9:15 PM EDT [facility] Mycoplasma pneumo by PCR Not Detected Not Detected LAB MICROBIOLOGY METHOD 10/07/2024 9:15 PM EDT [facility] Chlamydia pneumoniae Not Detected Not Detected LAB MICROBIOLOGY METHOD 10/07/2024 9:15 PM EDT [facility] SARS COV-2 Not Detected Not Detected LAB MICROBIOLOGY METHOD 10/07/2024 9:15 PM EDT [facility] Swab Both anterior nares / Unknown Non-blood Collection / Unknown 10/07/2024 7:07 PM EDT 10/07/2024 8:[address] [facility] - 10/07/2024 9:15 PM EDT Testing was performed using the [employer] Respiratory Pathogen PCR Assay. All results must [...] MICROBIOLOGY - GENERAL KYLEE EVANS Final Result [facility] [address] [place] [address], * (ABNORMAL) Manual differential (10/07/2024 5:19 PM EDT) Neutrophils % 39.0 % LAB HEMETOLOGY METHOD 10/07/2024 6:37 PM EDT [facility] Lymphocytes % 36.0 % LAB [facility]OLOGY [facility] Reactive Lymphocyte 12.00 % LAB HEMETOLOGY METHOD 10/07/2024 6:37 PM EDT [facility] Monocytes % 10.0 % LAB HEMETOLOGY METHOD 10/07/2024 6:37 PM EDT [facility] Eosinophils % 2.0 % LAB HEMETOLOGY METHOD [facility] Basophils % 1.0 % LAB HEMETOLOGY METHOD 10/07/2024 6:37 PM [facility] Neutrophils Absolute Manual 2.73 1.50 - 7.00 K/mcL LAB HEMETOLOGY METHOD 10/07[facility]24 [facility] Lymphocytes Absolute 2.52 1.00 - 5.00 K/mcL LAB HEMETOLOGY METHOD 10/07/2024 6:37 PM [facility] Reactive Lymph Abs Manual 0.84(H) 0.00 - 0.00 lym LAB HEMETOLOGY METHOD 10/07/2024 6:37 PM [facility] Monocytes Absolute Manual 0.70 0.20 - 1.00 K/mcL LAB HEMETOLOGY METHOD 10/07/2024 6:37 PM T [facility] Eosinophils Absolute Manual 0.14 0.00 - 0.50 K/mcL LAB HEMETOLOGY METHOD 10/07/2024 6:37 PM [facility] Basophils Absolute Manual 0.07 0.00 - 0.20 K/mcL LAB HEMETOLOGY METHOD 10/07/2024 6:37 PM [facility] Rbc Morphology Consistent with indices Consistent with indices, Normal for LAB HEMETOLOGY METHOD 10/07/2024 6:37 PM EDT [facility] Platelet Morphology - WAM See Note(A) Normal LAB HEMETOLOGY METHOD 10/07/2024 6:37 PM EDT [facility] Comment:PLT: Normal Blood Venous blood specimen / Unknown Venipuncture / Unknown 10/07/2024 5:19 PM EDT 10/07/2024 5:31 PM EDT us Lilian Bakari Manuel Charly DO LAB BLOOD ORDERABLES Elenita l Result [facility] [address] [place] [address], [place] [phone] * (ABNORMAL) CBC auto differential (10/07/2024 5:19 PM EDT) WBC 7.0 4.8 - 10.8 K/mcL LAB HEMETOLOGY METHOD 10/07/2024 6:37 PM EDT [facility] RBC 5.20(H) 3.80 - 4.80 M/mcL LAB HEMETOLOGY METHOD 10/07/2024 6:37 PM EDT [facility] Hemoglobin 14.7 11.5 - 16.0 g/dL LAB HEMETOLOGY METHOD 10/07/2024 6:37 PM EDT [facility] Hematocrit 45.3 35.0 - 47.0 % LAB HEMETOLOGY METHOD 10/07/2024 6:37 PM EDT [facility] MCV 87.6 79.0 - 98.0 FL LAB HEMETOLOGY METHOD 10/07/2024 6:37 PM EDT [facility] MCH 28.4 27.0 - 32.0 pcg LAB HEMETOLOGY METHOD 10/07/2024 6:37 PM EDT [facility] MCHC 32.5 32.0 - 37.0 g/dL LAB HEMETOLOGY METHOD 10/07/2024 6:37 PM EDT [facility] RDW 13.8 11.0 - 15.0 % LAB HEMETOLOGY METHOD 10/07/2024 6:37 PM EDT [facility] Platelets 263 130 - 400 K/mcL LAB HEMETOLOGY METHOD 10/07/2024 6:37 PM EDT [facility] MPV 10.9 7.0 - 11.0 FL LAB HEMETOLOGY METHOD 10/07/2024 6:37 PM EDT [facility] NRBC 0.0 <1.0 % LAB HEMETOLOGY METHOD 10/07/2024 6:37 PM EDT [facility] NRBC Absolute 0.00 <0.10 K/mcL LAB HEMETOLOGY METHOD 10/07/2024 6:37 PM EDT [facility] Blood Venous blood specimen / Unknown Venipuncture / Unknown 10/07/2024 5:19 PM EDT 10/07/2024 5:31 PM EDT us Lilian Parks DO LAB BLOOD ORDERABLES Elenita l Result [facility] [address] [place] [address], [place] [phone] * Magnesium (10/07/2024 5:19 PM EDT) Magnesium 2.1 1.9 - 2.6 mg/dL LAB CHEMISTRY METHOD 10/07/2024 5:56 PM EDT [facility] Blood Venous blood specimen / Unknown Venipuncture / Unknown 10/07/2024 5:19 PM EDT 10/07/2024 5:31 PM EDT us Lilian Parks DO LAB BLOOD ORDERABLES Elenita l Result [facility] [address] [place] [address], [place] [phone] * Lipase (10/07/2024 5:19 PM EDT) [facility] Lipase 30 13 - 75 unit/L LAB CHEMISTRY METHOD 10/07/2024 5:56 PM EDT [facility] Blood Venous blood specimen / Unknown Venipuncture / Unknown 10/07/2024 5:19 PM EDT 10/07/2024 5:31 PM EDT [facility] Bakari Parks DO LAB BLOOD ORDERABLES Elenita l Result [facility] [address] [place] [address], [place] [phone] * (ABNORMAL) Comprehensive metabolic panel (10/07/2024 5:19 PM EDT) [facility] Sodium 137 133 - 145 mmol/L LAB CHEMISTRY METHOD 10/07/2024 6:14 PM [facility] Potassium 4.0 3.5 - 5.5 mmol/L LAB CHEMISTRY METHOD 10/07/2024 6:14 PM [facility] Chloride 103 96 - 110 mmol/L LAB CHEMISTRY METHOD 10/07/2024 6:14 PM [facility] CO2 27 21 - 32 mmol/L LAB CHEMISTRY METHOD 10/07/2024 6:14 PM [facility] Anion Gap 7 3 - 11 LAB CHEMISTRY METHOD 10/07/2024 6:14 PM [facility] Glucose 141(H) 70 - 100 mg/dL LAB CHEMISTRY METHOD 10/07/2024 6:14 PM [facility] BUN 29(H) 5 - 25 mg/dL LAB CHEMISTRY METHOD 10/07/2024 6:14 PM [facility] Creatinine 1.07 0.50 - 1.10 mg/dL LAB CHEMISTRY METHOD 10/07/2024 6:14 PM T [facility] eGFR 57(L) >=60 mL/min/1. 73m2 LAB CHEMISTRY METHOD 10/07/2024 6:14 PM T [facility] Comment:Calculation based on the??Chronic Kidney Disease Epidemiology Collaboration (CKD-EPI) equation refit??without adjustment for race. BUN/Creatinine Ratio 27.1 LAB CHEMISTRY METHOD 10/07/2024 6:14 PM T [facility] Calcium 9.4 8.5 - 10.5 mg/dL LAB CHEMISTRY METHOD 10/07/2024 6:14 PM [facility] AST (SGOT) 22 10 - 42 unit/L LAB CHEMISTRY METHOD 10/07/2024 6:14 PM [facility] ALT (SGPT) 23 10 - 60 unit/L LAB CHEMISTRY METHOD 10/07/2024 6:14 PM [facility] Alkaline Phosphatase 77 42 - 121 unit/L LAB CHEMISTRY METHOD 10/07/2024 6:14 PM [facility] Total Protein 8.0 6.0 - 8.0 g/dL LAB CHEMISTRY METHOD 10/07/2024 6:14 PM [facility] Albumin 3.8 3.2 - 5.0 g/dL LAB CHEMISTRY METHOD 10/07/2024 6:14 PM [facility] Total Bilirubin 0.5 0.0 - 1.4 mg/dL LAB CHEMISTRY METHOD 10/07/2024 6:14 PM [facility] Blood Venous blood specimen / Unknown Venipuncture / Unknown 10/07/2024 5:19 PM EDT 10/07/2024 5:31 PM EDT Lilian Parks DO LAB BLOOD ORDERABLES Elenita l Result [facility] [address] [place] [address], * SCR MAMMO BI INCL CAD (09/02/2017 [...] Most Recently Relevant to Health Maintenance Insurance [place] [address] MEDICARE Member Subscriber Plan / Payer (Ef fective 2022-Present) Name:Reddy Mcqueenlia Relation to Subscriber:Self Name:Reddy Mcqueenlia Payer ID:[id number] Group ID:[id number] Type:Not on file Address: [address] [id number] Advance Directives Documents on File Type Date Recorded Patient Brief Writer Expl anation Health Care Decision (hx) 04/01/2016 [...] (hx) 04/01/2016 AD TEE DIRECTIVE Care Teams Controls Project Engineer Relationship Specialty Start Date End Date Henrique Soler MD [address] [place] [address] [address] [place] PCP - General Internal Medicine 06/18/14
--- OUTSIDE RECORDS SUMMARY | 2024-10-12 16:42 | XMS_ITS | Encounter Summary ---
Author Organization [facility] Address [address] [place] [address] Care Team Providers Care Case Aide Name Role Phone Bennie Yang MD Primary Care Provider [phone] Henrique Soler MD Primary Care Provider Unava ilable Encounter Details Date Type Department Care Team Description 08/15/2015 Business Doc Medical Records [address] [place], [place] [id number] Abstract, Provider Social History Tobacco Use Types [...] on filedocumented in this encounter Care Teams Case Aide Relationship Specialty Start Date End Date Bennie Yang MD [address] [place], [place] [id number] PCP - General Internal Medicine 06/19/15 03/31/18 Henrique Soler MD [address] [place], [place] [id number] PCP - General Internal Medicine 04/01/18 documented as of this encounter
== END 2024-10-12 12:06 | disposition home or self-care (01) ==
LOC: HO.XRAY 12:05
PROVIDERS: PCP Internal Medicine
DX: R05.9 Cough, unspecified (principal)
CPT/HCPCS: 71046; 99212

== ENCOUNTER 2024-10-12 12:05 | Outpatient (AMB) | payer OTHER, SELFPAY ==
--- NOTE | 2024-10-12 12:49 | A.OFFPC_ITS ---
Vital Signs 10/12/24 12:50 Height 5 ft 6 in Weight 219 lb 8 oz BMI 35.4 BP 120/72 Blood Pressure Location Lt brachial Position Sitting Temp 96.9 F Temp Source Temporal Artery Scan Intake Visit Reasons: cough Intake Note: Patient complains of coughing ongoing for a week. Auto Accessories Installer Required: No Lining Setter: Not Required per policy Accompanied by: Self / Same As Patient Allergies codeine [Tylenol-Codeine #3] Allergy (Intermediate, Verified 10/12/24 12:50) Rash morphine Allergy (Intermediate, Verified 10/12/24 12:50) rash and itching nalbuphine [From Nubain] Allergy (Intermediate, Verified 10/12/24 12:50) Rash oxycodone [Percocet] Allergy (Intermediate, Verified 10/12/24 12:50) Rash propoxyphene [From Darvocet-N 100] Allergy (Intermediate, Verified 10/12/24 12:50) Rash tramadol [Ultram] Allergy (Intermediate, Verified 10/12/24 12:50) Rash ibuprofen [From Motrin] Allergy (Mild, Verified 10/12/24 12:50) RASH montelukast [Singulair] Allergy (Unknown, Verified 10/12/24 12:50) Unknown Tobacco use date assessed: 10/12/24 Fall risk assessment: 2 + Falls in past year Last assessed Fall Risk: 10/12/24 Dental Screening Dental Screen Date: 08/12/24 HPI cough HPI Details 68-year-old female with past medical his tory of anxiety, impaired glucose tolerance, asthma, migraine, GERD, fibromyalgia, depression, chronic back pain, hypercholesterolemia last seen by Dr. Soler 08/2024 coming in for acute problem. Presenting with an acute cough. She experienced nausea, vomiting, and diarrhea last Friday, resolving by Friday, while the cough started on Friday. The dry cough has persisted for more than a week without producing phlegm. She denies fever or night sweats but reports dizziness beginning with GI symptoms. The patient has dehydration concerns due to insufficient hydration after diarrhea and vomiting episodes. Her asthma history is acknowledged, with inhaler use reported but mild dyspnea observed. COVID-19 and influenza tests were negative per patient. She was seen in [facility] ED last Friday and had viral testing but no Xray and was given Zofran for GI complaints. [facility] Medical History Folliculitis Pure hypercholesterolemia Allergic rhinitis Insomnia Multiple joint pain GERD without esophagitis Vitamin D deficiency Lumbar spondylosis Obesity (BMI 30-39.9) Migraine Primary osteoarthritis of both knees Urinary incontinence Rotator cuff tear, left Depression Asthma Fibromyalgia Non-toxic multinodular goiter Anxiety Surgical History Status post rotator cuff surgery S/P rotator cuff repair Status post right rotator cuff repair (~07/26/18) History of hysterectomy History of cholecystectomy History of laminectomy (~2009) Family History Father Diabetes Mother Medical history unknown Social History Household Members: None Housing: Apartment Do you presently have visiting nurse or other home services: No Alcohol intake: former Patient Tobacco Use Status: Never used Tobacco e-Cigarette/Vaping Use: Never Used Second Hand Smoke Exposure: No service: No Current occupational status: disabled Cognitive needs: Yes (cane) Hearing needs: No Vision needs: Yes (glasses) Questionnaire Thrive Questionnaire Date Thrive assessed: 08/12/24 FLACO-7 AMB Questionnaire FLACO-7 Date FLACO - 7 assessed: 08/12/24 Source: Developed by Drs. Lang Pacheco, Kelsey Lund, Filemon Grewal and colleagues, with an educational juvenal from [facility] [employer]. Review of Systems Const Denies body aches, Denies chills, Reports fatigue, Denies fever(s) and Denies poor appetite Eyes Reports no additional complaints ENT Denies dizziness and Denies odynophagia Card Denies chest pain, Denies syncope, Denies edema, Denies irregular heart rhythm, Reports lightheadedness, Denies dyspnea and Reports dyspnea on exertion Resp Reports cough, Denies hemoptysis, Denies excessive phlegm production, Denies dyspnea and Reports dyspnea on exertion GI Details: Nausea, vomiting, diarrhea has resolved Denies abdominal pain, Denies constipation, Denies diarrhea, Denies nausea, Denies odynophagia and Denies vomiting Reports no additional complaints Musc Reports no additional complaints and Denies abnormal gait Skin/Breast Reports system reviewed and no additional complaints, except as documented Neuro Denies abnormal gait, Denies dizziness and Denies syncope Psych Reports no additional complaints Endo Reports fatigue Physical exam (Primary Care) Vital Signs: Last Vital Signs Temp 96.9 F 10/12/24 12:50 BP 120/72 10/12/24 12:50 BMI result Body Mass Index 35.4 Tobacco/Smoking Status: Tobacco use Status Tobacco use date assessed 10/12/24 10/12/24 12:51 Patient Tobacco Use Status Never used Tobacco 10/12/24 12:51 Tobacco use type 04/20/24 09:59 e-Cigarette/Vaping Use Never Used 10/12/24 12:51 Thrive Assessment: Date of Thrive Assessment Date Thrive assessed 08/12/24 10/12/24 12:51 Const General: cooperative, healthy appearing, comfortable and no acute distress Orientation/consciousness: patient oriented x3 HENMT Head: Yes normocephalic Ears: hearing grossly normal bilaterally General nose exam: Normal external nose present Eyes General: appearance normal, both eyes and all related structures Conjunctivae: conjunctivae normal Neck Neck: Yes full ROM and Yes no lymphadenopathy Resp Effort & Inspection: normal respiratory effort Auscultation: no crackles, no rales, rhonchi lower bilaterally and wheezes (Mild) Cardio Rate: regular rate Rhythm: regular rhythm Skin General skin exam: no rashes or lesions noted Neuro General: patient oriented x3 Gait exam (Neuro): Normal gait present Extrem General: Yes normal to inspection, Yes full ROM and No edema Psych Affect: normal affect Attitude: cooperative Insight: Good insight present (Psych) Judgement: Good judgement present (Psych) Coding Level of Care Code Est Pt Level 3 (61072) Diagnoses Cough R05.9 Assessment & Plan Assessment & Plan (1) Cough: Code(s): R05.9 - Cough, unspecified Category: Medical Plan: The patient presents with a persistent cough that appears as an exacerbation of asthma and signs of dehydration from a resolved episode of gastrointestinal upset. I will proceed with a chest x-ray to investigate potential infectious causes for the lung symptoms. A breathing treatment will be administered in- office to relieve current respiratory distress. Patient states her respiratory symptoms improved after administration of nebulized treatment. Lung sounds had also slightly improved. The patient will receive a prescription for prednisone to help control inflammation associated with her asthma. Given her risk of dehydration, increasing fluid intake is crucial. Follow-up instructions include monitoring respiratory symptoms and encouraging adherence to increased water consumption. Plan This note was constructed using voice recognition software. While every effort has been made to ensure accuracy and hydroelectric plant electrician, still areas may have been included sometimes these areas may affect the content or meeting of the given symptoms. Total time spent caring for the patient today was 20 minutes. This includes time spent before the visit reviewing the chart, time spent during the visit, and time spent after the visit and documentation. Patient was informed a nd verbally consented to the use of an ambient scribe for clinic note documentation during this visit. Orders: Orders XR chest 2V Today R05.9 - Cough, unspecified Medications: New prednisone Take 4 tablets on days 1-2, take 3 tablets on days 3-4, take 2 tablets on days 5-6, take 1 tablet on days 7-8. 10 mg PO DIRECTED 20 tabs 0RF
[2024-10-12 12:50] VITALS: BP 120/72; TEMP 36.1; BMI 35.4
--- OUTSIDE RECORDS SUMMARY | 2024-10-12 14:42 | XMS_ITS | Data Portability ---
Author Organization [facility], Main Office Address [address], [address] [place] [address] Care Team Providers Care Fisher Lobster Name Role Phone BLAZE PATTEN [facility] 2[facility] FLOOR OTHER Assessment Encounter Date Assessment Date Assessment LastModified by Organization Details LastModified Time 11/22/2020 11/22/2020 11/21/20 WBC 5.5, Hgb 13, Hct 40.7, Plt 278, Na 141, K 4.6, BUN 11, Burglar Alarm Installer 0.72, karri 8.8 11/15/20 WBC 5.4, Hgb 13.2, Hct 41.3, Plt 291, Na 138, K 4.3, BUN 17, Burglar Alarm Installer 1.06, karri 8.6, tot prot 6.9, alb 3.2, tot bili 0.2, AST 19, ALT 24, alk phos 125 [email or web address] Not available 11/22/2020 10:14:01 11/20/2023 11/20/2023 11/15/20 WBC 5.4, Hgb 13.2, Hct 41.3, Plt 291, Na 138, K 4.3, BUN 17, Burglar Alarm Installer 1.06, karri 8.6, tot prot 6.9, alb 3.2, tot bili 0.2, AST 19, ALT 24, alk phos 125 Not available 11/20/2023 08:21:55 11/21/2023 11/21/2023 11/15/20 WBC 5.4, Hgb 13.2, Hct 41.3, Plt 291, Na 138, K 4.3, BUN 17, Burglar Alarm Installer 1.06, karri 8.6, tot prot 6.9, alb [...] and Address Organization Details Recorded Time Falls 971570211 Active 2020 LYLE SANTANA [address], [address], [place], [address], [address] 1 09:16:33 Injury of rotator cuff 723181893 Active 2020 LYLE SANTANA [address], [address], [place], [address], [facility] [employer] 1 09:17:03 Anxiety 15756899 Active 2020 LYLE SANTANA [address], [address], [place], [address], [facility] [employer] 1 09:19:26 Asthma 245664557 Active 2020 LYLE SANTANA [address], [place], [address], [address] 1 09:19:37 Depressive disorder 24948579 Active 2020 LYLE SANTANA [address], [address], [place], [address], [facility] [employer] 1 09:19:46 Fibromyalgia 304160521 Active 2020 LYLE SANTANA [address], [place], [address], [facility] [employer] 1 09:19:57 Chronic low back pain 034902696 Active 2020 LYLE SANTANA [address], [address], [place], [address], [address] 1 09:23:26 Non-toxic multinodular goiter 82067871 Active 2020 LYLE SANTANA [address], [place], [address], [address] 1 09:31:03 Gastroesophage al reflux disease without esophagitis 930733295 Active 2020 LYLE SANTANA [address], [place], [address], [address] 1 17:45:05 Vitamin D deficiency 94213135 Active 2020 LYLE SANTANA [address], [place], [address], [address] 1 17:50:09 Obesity 480197578 Active 2020 Danny Mcarthur MD [address], [place], [address], [address] 1 10:03:21 Vertigo 099697792 Active 2020 LYLE SANTANA [address], [place], [address], [address] 1 22:04:34 Osteoarthritis of knee 544121244 Active 2020 LYLE SANTANA [address], [place], [address], [address] 1 09:11:19 Asthenia 55518439 Active 2023 Araceli Mendoza NP [address], [place], [address], [address] 4 08:59:56 Problem Notes None recorded. Procedures Surgical History Date Name Laterality Status Provider Name and Address Organization Details Recorded Time 07/18/19 21 complete repair of rotator cuff completed LYLE SANTANA [address], [address], [place], [address], [address] 09/15/2020 17:42:10 cholecystectomy completed SIMRANSA HOUSTON, MACHINE SWEEPER BRUSH MAKER [address], [address], [place], [address], [facility] [employer] [facility] 09/15/2020 09:26:25 Hysterectomy completed SIMRANSA HOUSTON, MACHINE SWEEPER BRUSH MAKER [address], [address], [place], [address], [facility] [employer] [facility] 09/15/2020 09:28:09 laminectomy completed SIMRANSA HOUSTON, MACHINE SWEEPER BRUSH MAKER [address], [address], [place], [address], [facility] [employer] [facility] 09/15/2020 09:29:37 Imaging Results None recorded. Procedure Notes None recorded. Medical Equipment None Reported. Allergies Allergen ID Allergen Name Allergen Category Reaction Reaction Severity Criticality Documentation Date Start Date Code Code System Note Provider Name and Address Organization Details Recorded Time 01920 codeine medicatio n rash Not available Not available 09/15/2020 2670 RxNorm Not Available Not Available Not Available 40377 morphine medicatio n rash Not available Not available 09/15/2020 7052 RxNorm Not Available Not Available Not Available 01826 Nubain medicatio n rash Not available Not available 09/15/2020 7550 RxNorm Not Available Not Available Not Available 60831 oxycodone medicatio n rash Not available Not available 09/15/2020 7804 RxNorm Not Available Not Available Not Available 46699 propoxyph leonel medicatio n rash Not available Not available 09/15/2020 8785 RxNorm Not Available Not Available Not Available 77164 Ultram medicatio n rash Not available Not available 09/15/2020 51533 6 RxNorm Not Available Not Available Not Available 03295 ibuprofen medicatio n rash Not available Not available 09/15/2020 5640 RxNorm Not Available Not Available Not Available 55580 Singulair medicatio n Not available Not available Not available 09/15/2020 63728 9 RxNorm Not Available Not Available Not Available [address] medicatio n Not available Not available [facility] 11/20/2023 99265 RxNorm Not Available Not Available Not Available 90463 acetamino phen medicatio n other Not available [facility] 11/20/2023 161 RxNorm unkno wn Not Available Not Available Not Available 68282 hydromorp philip medicatio n other Not available unabletoasse 11/20/2023 3423 RxNorm Not Available Not Available Not Available Vitals Date Recorded Body weight Heart rate Respiratory rate Body temperature Oxygen saturation Oxygen saturation in Arterial blood by Pulse oximetry Systolic blood pressure Diastolic blood pressure Provider Name and Address Organization Details Last Updated DateTime 4 92439.4 g 64 /min 18 /min 96 [degF] 95 % 95 % 113 mm[Hg] 72 mm[Hg] Araceli Mendoza NP [address] [facility], [address], [place], [address], [address] 4 08:22:52 Date Recorded Body weight Body mass index (BMI) Body height Heart rate Respiratory rate Body temperature Oxygen saturation Oxygen saturation in Arterial blood by Pulse oximetry Systolic blood pressure Diastolic blood pressure Provider Name and Address Organization Details Last Updated DateTime 4 93802.1 9 g 34 kg/m2 167.64 cm 80 /min 18 /min 97.5 [degF] 93 % 93 % 124 mm[Hg] 78 mm[Hg] Jane Galvan MD [address] [facility], [address], [place], [address], [address] 4 21:22:27 Date Recorded Oxygen saturation Oxygen saturation in Arterial blood by Pulse oximetry Body temperature Body weight Provider Name and Address Organization Details Last Updated DateTime 11/21/2020 99 % 99 % 97.8 [degF] 055992. 94 g LYLE SANTANA [address] [facility], [address], [place], [address], [address] 1 19:41:18 Date Recorded Heart rate Respiratory rate Body temperature Oxygen saturation Oxygen saturation in Arterial blood by Pulse oximetry Provider Name and Address Organization Details Last Updated DateTime 1 69 /min 15 /min 98.2 [degF] 99 % 99 % LYLE SANTANA [address] [facility], [address], [place], [address], [address] 1 10:24:20 Date Recorded Systolic blood pressure Diastolic blood pressure Provider Name and Address Organization Details Last Updated DateTime 11/20/2020 133 mm[Hg] 69 mm[Hg] Danny Mcarthur MD [address], [place], [address], [facility] [employer] 11/20/2020 12:24:49 Social History Question Answer Notes LastModified by Organizat ion Details LastModified Time Tobacco Smoking Status Never Smoker LYLE SANTANA [address], [address], [place], [address], [facility] [employer] 09/15/2020 09:37:52 Do You Have An [...] Do You Have A Medical Power Of Nut Sifter? Yes Information not available 11/21/2023 What Was [...] Organization Details Recorded Time Tdap 6 completed [employer] [facility] 11/20/2023 15:57:00 Tdap 7 completed Krystal Mateo [facility] 11/20/2023 15:57:07 Pneumococcal conjugate PCV 13 1 completed [facility] 11/20/2023 15:57:56 pneumococcal polysaccharide PPV23 5 completed [facility] 11/20/2023 15:58:14 influenza, unspecified formulation 2 completed [facility] 11/20/2023 15:58:35 Past Encounters Encounter ID Performer Location Encounter Start Date Encounter Closed Date Diagnosis/Indication Diagnosis SNOMED-CT Code Diagnosis ICD10 Code Diagnosis Note [id number] LYLE SANTANA [address] [address] 09/15/2020 09:05:35 09/19/2020 11:31:05 Falls 037969333 R29.6 PT/OT eval and treatmonit or for safety Injury of rotator cuff 813957283 S46.092S 09/12/20 revision-i nitial surgery 07/18/20wea r sling at all timespendu lums tidno liftingelb ow and wrist ROM okmeloxica m 15 mg qdtizanidi ne 4 mg tidadded methocarba mol 750 mg tid prn as she states this has worked better beforefoll ow up with ortho in 2 weeks (Dr Instrum) Anxiety 40892701 F41.1 ativan 0.5 mg tid prndiscuss ed risk vs benefit of ativan with ptmonitor anxietypsy ch eval and treat prn Asthma 351564517 J45.20 loratadine 10 mg qdalb hfa 90 mcg 2 puffs q 6 hrs prnmonitor for symptoms Depressive disorder 3548 9007 F32.89 citalopram 20 mg qdbupropio n SR 200 mg bid discussed risk vs benefit of citalopram and bupropion with ptmonitor mood Fibromyalgia 811062092 M 79.7 lyrica 150 mg tidnortrip tyline 25 mg bid discussed risk vs benefit of lyrica and nortriptyl ine with ptmonitor pain Chronic low back pain 27 1198239 M54.5 see above Non-toxic multinodular goiter 94899998 E04.2 noted in historymon itor Gastroesop hageal reflux disease without esophagitis 129395138 K21.9 pantoprazo le 40 mg qdmonitor for symptoms Vitamin D deficiency 347 05169 E56.8 vitamin D2 67775 units q weekmonito r levels [id number] LYLE SANTANA [facility] [address] [address] 09/18/2020 09:18:52 09/22/2020 08:57:21 Injury of rotator cuff 250469831 S46.092S 09/12/20 revision-i nitial surgery 07/18/20wea r [...] to covid isolation for 14 days Falls 475694398 R29.6 PT/OTmonit or for safety [id number] Danny Mcarthur MD [facility] [address] [address] 09/20/2020 09:45:42 09/22/2020 09:10:40 Falls 199887723 R29.6 PT/OT eval and treat monitor fall risk Injury of rotator cuff 513158853 S46.092S see HPI now s/p revision right rotator cuff surgery with initial completed in Jul 2020 follow surgery recs PT OT eval and treat monitor for pain control update surgery with concerns Anxiety 43318649 F41.1 see above monitor ativan utilizatio n psych eval prn Depressive disorder 3548 9007 F32.89 celexa 20 mg qd wellbutrin SR 200 mg bid continue out patient dose monitor for change in mood psych eval prn Fibromyalgia 158552031 M 79.7 see above maintained on lyrica and tricyclic antidepres gissel monitor for effect avoid opioids as able Chronic low back pain 27 9886430 M54.5 lyrica 150 mg tid continued monitor for effect Non-toxic multinodular goiter 20631674 E04.2 added to PMH Gastroesop hageal reflux disease without esophagitis 224781722 K21.9 pantoprazo le 40 mg qd monitor for sx relief Vitamin D deficiency 347 58890 E56.8 maintained on Vit D Obesity 816955781 E66.09 dietary eval [id number] LYLE SANTANA [facility] [address] [address] 09/25/2020 08:48:52 09/28/2020 12:59:06 Chronic low back pain 820764343 M54.5 states legs give out history of previous surgery appt made at [facility] on October 05, 2020 patient and PT/OT agrees with this Fibromyalgia 782911017 M 79.7 lyrica 150 mg tid nortriptyl ine 25 mg bid monitor pain [id number] LYLE SNATANA [facility] [address] [place] [address] 10/02/2020 08:43:59 10/04/2020 13:00:56 Injury of rotator cuff 444396460 S46.092S 09/12/20 revision-i nitial surgery 07/18/20 wear sling at all times pendulums tid no lifting PROM/AROM- no strength meloxicam 15 mg qd methocarba mol 750 mg tid prn follow up with ortho (Dr Maharaj)- Chronic low back pain 27 0254868 M54.5 appt made at [facility] on October 05, 2020 able to ambulate but when back is bothering her the right leg gives out will await recommenda salty [place] 194720966 R29.6 PT/OT monitor for safety reminders to use call redd [id number] LYLE SANTANA[address] [address] 10/09/2020 08:49:40 10/11/2020 15:15:25 Falls 804476996 R29.6 follow up with PCP Injury of rotator cuff 840800027 S46.092S 09/12/20 revision-i nitial surgery 07/18/20 wear sling at all times pendulums tid OK to shower PROM/AAROM no abduction >45 no external rotation no forward flexion >45 no strength meloxicam 15 mg qd tizanidine 4 mg tid methocarba mol 750 mg tid prn follow up with ortho (Dr Maharaj) on October 19 at 2:30 Anxiety 51313781 F41.1 ativan 0.5 mg tid prn follow up with PCP Asthma 625603391 J45.20 loratadine 10 mg qd alb hfa 90 mcg 2 puffs q 6 hrs prn follow up with PCP Depressive disorder 3548 9007 F32.89 citalopram 20 mg qd bupropion SR 200 mg bid follow up with PCP Fibromyalgia 825689898 M 79.7 lyrica 150 mg tid nortryptyl ine 25 mg bid follow up with PCP Chronic low back pain 27 8916761 M54.5 follow with [facility] on October 18 at 10:30 in [facility] Non-toxic multinodular goiter 68516351 E04.2 follow up with PCP Gastroesop hageal reflux disease without esophagitis 423824582 K21.9 pantoprazo le 40 mg qd follow up with PCP Vitamin D deficiency 347 91702 E56.8 vitamin D2 26772 units q week follow up with PCP Obesity 498404454 E66.8 follow up with PCP [id number] LYLE SANTANA [facility] [address] [place] [address] 11/15/2020 08:32:31 11/23/2020 16:01:37 Vertigo 319878047 R42 meclizine 25 mg tid prn work up done in hospital felt to be poly pharmacy-t osiel would like us to simplify her medication s monitor for improvemen t Falls 377367283 R29.6 PT/OT eval and treat monitor for safety Fibromyalgia 213336985 M 79.7 lyrica 150 mg tid nortryptyl ine 25 mg qd monitor Gastroesop hageal reflux disease without esophagitis 483880774 K21.9 pantoprazo le 40 mg qd monitor for symptoms Depressive disorder 3548 9007 F32.89 bupropion SR 200 mg bid monitor mood psych eval and treat prn Chronic low back pain 27 7152411 M54.5 neurontin 100 mg tid follow with [facility] Asthma 804224450 J45.20 loratadine 10 mg qd alb hfa 90 mcg 2 puffs q 6 hrs prn flovent hfa 110 mcg 1 puff bid monitor respirator y status Anxiety 22308780 F41.1 ativan 0.5 mg tid prn monitor Obesity 359047420 E66.8 monitor Vitamin D deficiency 347 67388 E56.8 vitamin D2 1250 mcg q week monitor levels Non-toxic multinodular goiter 39689709 E04.2 monitor Injury of rotator cuff 987057765 S46.092S 09/12/20 revision-i nitial surgery 07/18/20 meloxicam 15 mg qd tizanidine 4 mg tid prn monitor [id number] Danny Mcarthur MD [address] [address] 11/20/2020 12:24:00 11/23/2020 16:24:02 Vertigo 271184424 R42 see HPI eval by neuro in hospital medication s adjusted monitor on antivert 25 mg tid prn titrate prn question BPV consider liliana maneuver Falls 077615894 R29.6 PT/OT eval and treat monitor for safety Fibromyalgia 677952547 M 79.7 meds adjusted now off celexa monitor for change in presentati on Gastroesop hageal reflux disease without esophagitis 259265236 K21.9 pantoprazo le 40 mg qd monitor for sx relief Depressive disorder 3548 9007 F32.89 monitor with med adjustment s psych to eval prn Chronic low back pain 27 3258624 M54.5 known at baseline given above complaints monitor ability to reduce neurontin Anxiety 91080055 F41.1 stable on ativan see above Obesity 827085416 E66.8 dietary eval Non-toxic multinodular goiter 33191735 E04.2 added to PMH Pain in right knee 73259 29540 37870 M25.561 xray to eval monitor for change Vitamin D deficiency 347 40241 E56.8 maintained on Vit D [id number] LYLE SANTANA [facility] [address] [address] 11/21/2020 09:08:41 11/24/2020 09:26:16 Osteoarthritis of knee 109265010 M17.11 tylenol prn meloxicam 15 mg qd zanaflex 4 mg q 8 hrs prn nortriptyl ine 25 mg qd lyrica 150 mg tid neurontin 100 mg tid monitor [id number] LYLE SANTANA [facility] [address] [address] 11/22/2020 08:56:09 11/24/2020 09:35:24 Vertigo 840013982 R42 meclizine 25 mg tid prn work up done in hospital felt to be poly pharmacy-t osiel would like PCP to simplify her medication s follow up with PCP Falls 635838179 R29.6 follow up with PCP Fibromyalgia 461258241 M 79.7 lyrica 150 mg tid nortryptyl ine 25 mg qd follow up with PCP Gastroesop hageal reflux disease without esophagitis 651393226 K21.9 pantoprazo le 40 mg qd follow up with PCP Depressive disorder 3540 9007 F32.89 bupropion SR 200 mg bid follow up with PCP Chronic low back pain 27 6080841 M54.5 neurontin 100 mg tid follow with [facility] Asthma 722585021 J45.20 loratadine 10 mg qd alb hfa 90 mcg 2 puffs q 6 hrs prn flovent hfa 110 mcg 1 puff bid follow up with PCP Anxiety 16613920 F41.1 follow up with PCP Obesity 108133998 E66.8 follow up with PCP Vitamin D deficiency 347 59738 E56.8 vitamin D2 1250 mcg q week on friday follow up with PCP Non-toxic multinodular goiter 26956781 E04.2 follow up with PCP Injury of rotator cuff 945807985 S46.092S 09/12/20 revision-i nitial surgery 07/18/20 meloxicam 15 mg qd tizanidine 4 mg tid prn follow up with PCP [id number] Araceli Mendoza NP [facility] [address] [place] [address] 11/20/2023 08:21:31 11/24/2023 11:41:22 Vertigo 957862127 R42 meclizine 25 mg tid prnmonitor orthos q shift x 3 days, then bp dailymonit or for improvemen t [place] 734307346 R29.6 ct, xrays, ekg, labs neg for acute concerns PT/OT eval and treatlabs [facility] Fibromyalgia 338902110 M 79.7 nortryptyl ine 25 mg bidlidocai ne patch on in am off in pmsee low back painmonito r Gastroesop hageal reflux disease without esophagitis 157547843 K21.9 pantoprazo le 40 mg qd monitor for symptoms Depressive disorder 3548 9007 F32.89 bupropion SR 200 mg bid monitor mood psych eval and treat prn Chronic low back pain 27 1822685 M54.50 with multiple drug allergiesl idocaine patch dailyflexe ril 10 mg po q 12 hours prn pain/spasm spt ot treat and evalfollow with [facility] outpt prn Asthma 319011509 J45.20 loratadine 10 mg qd monitor respirator y status Anxiety 41058692 F41.1 buspar 10 mg bidmonitor Obesity 921463786 E66.8 monitor weights and supportive aredietici an following Vitamin D deficiency 347 81086 E56.8 vitamin d3 2000 unit daily monitor levels Non-toxic multinodular goiter 08953758 E04.2 monitor Mixed anxi ety and depressive disorder 641275465 F41.8 buspar 10 mg bidbupropr ion 200 mg sr po bidduloxet ine 30 mg cap po bidmonitor Asthenia 89993465 R53.1 pt with weaknesspt ot eval and treatmonit or [id number] Jane Galvan MD [address] [address] 11/21/2023 21:16:22 11/26/2023 09:12:25 Vertigo 486402513 R42 Continue meclizine 25 mg TID prnNeeds PT/OT for strengthen ing, balance, gait training, safety and function.C ontinue fall precaution s.Monitor for safety.Mon itor orthostati c vitals. Falls 982683224 R29.6 As above. Asthenia 77971767 R53.1 As above. Fibromyalgia 517559361 M 79.7 Continue meds as above and nortryptyl ine 25 mg BID and duloxetine 30 mg BID.Monito r sxs. Gastroesop hageal reflux disease without esophagitis 883183375 K21.9 No current sxs. Continue pantoprazo le 40 mg qd Monitor for GI sxs. Chronic low back pain 27 8372467 M54.51 Failed back syndrome.C ontinue lidocaine patch qd, cyclobenza kyra 10 mg q 12 hrs prn and meds for fibromyalg ia as below.PT/O T eval and tx.F/U with [facility] as outpt Asthma 315282632 J45.20 No recent sxs. Not on inhalers. Continue loratadine 10 mg qd Monitor resp status. Mixed anxi ety and depressive disorder 163630742 F41.8 F32.89 Mood good tonight.Co ntinue Buspar 10 mg BID, buproprion 200 mg BID and duloxetine 30 mg BID.Monito r mood.Consu lt psych prn Obesity 256991104 E66.8 Continue to encourage healthy eating. tician consult Vitamin D deficiency 347 20404 E56.8 Continue cholecalci ferol 2000 IU qd.Monitor levels as outpt Non-toxic multinodular goiter 11312950 E04.2 Last TSH on 10/20/23 was 6.16 [...] Maradiaga Member ID Guarantor Name 11/20/2020 1 [facility] - DOS PRIOR TO 2022 - DUAL ELIGIBLE (MEDICARE REPLACEMENT/ADV ANTAGE - HMO) Latia Mcqueen [id number] Sabrina Mcqueen 11/21/2020 1 [facility] - DOS PRIOR TO 2022 - DUAL ELIGIBLE (MEDICARE REPLACEMENT/ADV ANTAGE - HMO) Latia Mcqueen [id number] Sabrina Mcqueen 11/22/2020 1 [facility] - DOS PRIOR TO 2022 - DUAL ELIGIBLE (MEDICARE REPLACEMENT/ADV ANTAGE - HMO) Latia Mcqueen [id number] Sabrina Mcqueen 11/20/2023 1 [facility] - DOS ON OR AFTER 2022 - MEDICARE ADVANTAGE [place] (MEDICARE REPLACEMENT/ADV ANTAGE - PPO) Sabrina Mcqueen [id number] Sabrina Richar 11/21/2023 1 [facility] - DOS ON OR AFTER 2022 - MEDICARE ADVANTAGE [place] (MEDICARE REPLACEMENT/ADV ANTAGE - PPO) Sabrina Mcqueen [id number] Sabrina Mcqueen Notes Date Note Type Note [...] pain and swelling with imaging ordered to [facility] significant forgait instabilitydepressionchronic low back paingerdasthmafibromyalgiagait instability admit to facility for continued care and therapy Danny Mcarthur MD [address] [facility], [address], [place], [address], [facility] 11/20/2020 12:41:49 11/22/19 21 text/ht ml 64 year old female being seen for a acute rounding visit. Patient had a right knee x=ray for c/o right knee pain that revealed mild tricompartmental osteoarthritis and no acute abnormality. Will continue to monitor for pain. LYLE SANTANA [address] [facility], [address], [place], [address], [address] 11/21/2020 19:43:26 11/23/19 21 text/ht ml A 64 year old female being seen for a discharge summary. Patient was brought to [facility] after her CARD FILER found her sitting in a chair in [...] injury to rotator cuff. LYLE SANTANA [address] [facility], [address], [place], [address], [address] 11/22/2020 13:54:07 11/20/19 24 text/ht ml A 67 year old female being seen for a initial intake note. Medical history of vertigo, falls, fibromyalgia, GERD, depression, chronic low back pain, asthma, anxiety, obesity, vitamin D deficiency, goiter and injury to rotator cuff. Sabrina presented to [facility] ED for evaluation of back pain, nausea, and fell to the ground in her apartment without LOC diagnosised of worsening low back pain, disc herniation, and hx of compression fracture and transferred to [facility] for continued care and rehab on 11/19/23. Her workup conisted of CT head, cr spine lumbar, blood work and ekg all unremarkable for acute fracture. Mild multilevel degernerative endplate spurring with lower lumbar predominant facet arthritis noted. Blood work including troponin unremarkable. She was given a lidocaine patch and flexeril for pain. 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 of note: she was admitted to rehab in 2020 for similar concerns. On exam, Sabrina is seen in sitting up at her bedside in [facility]. She denies any pain, shortness of breath, nausea, dizziness, or chest pain. She is very pleasant and denies any new concerns today. She shows this BENEFITS REPRESENTATIVE her two non open red areas to bilateral knees. MOLST: DNR/DNI/transfer to hospital, no dialysis, no art nutrition, may use hydration short term Araceli Mendoza, BENEFITS REPRESENTATIVE [address] [facility], [address], [place], [address], [place] [facility] [employer] 11/20/2023 09:11:01 11/21/19 24 text/ht ml This is a 67 yo woman who is here for rehab after an ED visit for a fall with subsequent back pain.She presented to the [facility] ED on 11/17 after a fall which [...] and vitamin D deficiency. Jane Galvan MD [address] [place] [address], [address], [place], [address], [facility] [employer] 11/21/2023 22:52:34 OBGyn Episode No OBEpisode recorded.
--- OUTSIDE RECORDS SUMMARY | 2024-10-12 14:42 | XMS_ITS | Clinical Summary ---
Author Organization [facility] Address [address] [place] [phone] Phone Care Team Providers Care Cardiology Specialist Name Role Phone Henrique Soler MD Primary Care Provider Allergies Active Allergy Reactions Criticality Noted Date Comments Acetaminophen Rash 07/18/2015 Acetaminophen-Codeine Rash 07/10/2015 Codeine Rash 07/10/2015 Ibuprofen Rash 07/10/2015 Montelukast 07/18/2015 Morphine Itching Medium 10/07/2024 Oxycodone Rash 07/10/2015 Propoxyphene Rash 07/10/2015 Tramadol Rash 07/10/2015 Medications Ventolin HFA 90 mcg/actuation inhaler 05/03/20 24 Active buPROPion SR (WELLBUTRIN SR) 100 mg 12 hr tablet 04/30/20 24 Active busPIRone (BUSPAR) 10 mg tablet 04/01/20 24 Active cefpodoxime (VANTIN) 200 mg tablet 10/27/19 24 Active loratadine (CLARITIN) 10 mg tablet Take 1 tablet (10 mg total) by mouth 1 (one) time each day. Active meloxicam (MOBIC) 15 mg tablet Take 1 tablet (15 mg total) by mouth 1 (one) time each day. Active pregabalin (LYRICA) 100 mg capsule Take 1 capsule (100 mg total) by mouth 2 (two) times a day. Active tiZANidine (ZANAFLEX) 4 mg tablet Take 1 Tab by mouth every 6 hours as needed for Muscle spasms (muscle spasms Active omeprazole (PriLOSEC) [address] capsule Take 1 capsule (20 mg total) by mouth 1 (one) time each day. Active topiramate (TOPAMAX SPRINKLE) 25 mg capsule Take 1 capsule (25 mg total) by mouth 2 (two) times a day. Active LORazepam (ATIVAN) 0.5 mg tablet Take 1 tablet (0.5 mg total) by mouth every 6 (six) hours if needed. Active cholecalciferol (VITAMIN D-3) 125 mcg (5,000 unit) capsule Take 1 capsule (5,000 Units total) by mouth 1 (one) time per week. Active nortriptyline (PAMELOR) 25 mg capsule Take 1 capsule (25 mg total) by mouth 2 (two) times a day. Active bupropion HCl (BUDEPRION SR ORAL) Take by mouth. Activ e citalopram (CeleXA) 10 mg tablet Take 1 tablet (10 mg total) by mouth 1 (one) time each day. Active albuterol sulfate (PROAIR HFA INHL) Inhale into the lungs as needed Active ondansetron ODT (ZOFRAN-ODT) 4 mg disintegrating tabletIndications: Viral gastroenteritis Let 1 tablet dissolve under the tongue three times daily as needed for nausea or vomiting. 10 tablet 10/09/19 25 2024 Active methylPREDNISolone (MEDROL DOSPAK) 4 mg tablet Take 1 tablet (4 mg total) by mouth See administration instructions for 6 days. 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 Thumb pain, right 08/26/2017 Overview (05/18/2024): Last Assessment & Plan: 08/26/2017 - depo-medrol 20 mg injection Encounters Date Type Department Care Team Description 10/07/2024 6:14 PM EDT - 10/08/2024 1:34 AM EDT Emergency [facility] Emergency [address] [place] [address] Viral gastroenteritis (Primary Dx) Discharge Disposition: Home or Self Care 09/08/2024 10:45 AM EST Consult Orthopedic Surgery - [place] [address] [address] Tyshawn Milner, DPM Tendonitis, Achilles, right (Primary Dx); Pain in right ankle and joints of right foot; Tendonitis, Achilles, left from Last 3 Months Surgical History Surgery Date Site/Laterality Comments BACK SURGERY PROCEDURE: HISTORICAL BACK SURGERY HYSTERECTOMY PROCEDURE: HISTORICAL HYSTERECTOMY; COMMENT: w BSO in 3 separate surgeries SECTION PROCEDURE: HISTORICAL BREAST BIOPSY 2013? Left PROCEDURE: BX BREAST; PERC NEEDLE CORE W/IMAG GUID; COMMENT: neg SHOULDER SURGERY Bilateral Medical History Medical History Date Comments Vitamin D deficiency DX:Vitamin D deficiency Fibromyalgia DX:Fibromyalgia Depression DX:Depression Anxiety DX:Anxiety GERD (gastroesophageal reflux disease) DX:GERD (gastroesophageal reflux disease) Asthma Family History Medical History Relation Name Comments Breast cancer Neg Hx Social History Tobacco Use Types Packs/Day Years Used Date Smoking Tobacco: Never Smokeless Tobacco: Never Alcohol Use Standard Drinks/Week Comments Not Currently 0 (1 standard drink = 0.6 oz pur e alcohol) Comments Unknown Sex and Gender Information Value Date Recorded Sex Assigned at Female 05/18/2024 4:41 PM EST Legal Sex Female 5:47 AM EST Gender Identity Female 05/18/2024 4:41 PM EST Sexual Orientation Straight 05/18/2024 4: 41 PM EST Obstetrics History Last Filed Vital Signs Vital Sign Reading Time Taken Comments Blood Pressure 121/75 10/08/2024 1:15 AM EDT Pulse 68 10/08/2024 1:15 AM EDT Temperature 36.8 ??C (98.2 ??F) 10/08/2024 1:15 AM ED T Respiratory Rate 18 10/08/2024 1:15 AM EDT Oxygen Saturation 98% 10/08/2024 1:15 AM EDT Inhaled Oxygen Concentration - - Weight 109 kg (240 lb) 10/07/2024 5:07 PM EDT Height 167.6 cm (5' 6 ) 10/07/2024 5:07 PM EDT Body Mass Index 38.74 10/07/2024 5:07 PM EDT Plan of Treatment Upcoming Encounters Date Type Department Care Team (Late st Contact Info) Description 10/20/2024 10:30 AM EDT Office Visit Orthopedic Surgery - [place] [address] [phone] Tyshawn Milner, DPM 175 [facility] [address] [place] [address] Health Maintenance Due Date Last Done Comments Zoster Vaccines (1 of 2) 2006 Breast Cancer Screening 09/02/2019 09/02/2017 Colorectal Cancer Screening: Stool Based Tests (FOBT/FIT) 06/09/2022 Depression Screening 06/09/2022 Medicare Annual Wellness Visit 06/09/2022 Osteoporosis Screening (Bone Density Screening) 06/09/2022 Social Influencers of Health Screening 06/09/2022 COVID-19 Vaccine ( season) 2024 Influenza Vaccine (Season Ended) 2025 04/24/2022, 04/09/2021, 09/15/2020, Additional history exists Pneumococcal Vaccine: 50+ Years (3 of 3 - PCV20 or PCV21) 09/28/2025 09/28/2020, 02/19/2015 Falls Risk Assessment 10/08/2025 10/08/2024 DTaP,Tdap,and Td Vaccines (3 - Td or Tdap) 09/23/2026 09/23/2016, 04/15/2016 RSV Immunization Adult Patients (1 - 1-dose 75+ series) 12/31/2031 Hepatitis C Screening Completed 07/18/2015 HIB Vaccines Aged Out No longer eligi [...] age to complete this topic Meningococcal B Vaccine Aged Out No l onger eligible based on patient's age to complete this topic RSV Immunization Patients Under 20 months Aged Out No longer eligible based on patient's age to complete this topic Varicella Vaccines Aged Out No longer eligible based on patient's age to complete this topic Procedures Procedure Name Priority Date/Time Associated Diagnosis Comments MERCEDES URINE CULTURE TUBE STAT 10/07/2024 9:54 PM EDT URINALYSIS WITH REFLEX MICROSCOPIC AND CULTURE STAT 10/07/2024 9:54 PM EDT URINALYSIS WITH REFLEX MICROSCOPIC AND CULTURE STAT 10/07/2024 9:54 PM EDT CULTURE URINE STAT 10/07/2024 9:[address] ABDOMEN PELVIS W CONTRAST STAT 10/07/2024 9:03 PM EDT RESPIRATORY VIRUS PANEL MOLECULAR STUDY STAT 10/07/2024 7:07 PM EDT MANUAL DIFFERENTIAL - SYSMEX WAM STAT 10/07/2024 5:19 PM EDT CBC WITH AUTO DIFFERENTIAL STAT 10/07/2024 5:19 PM EDT LIPASE STAT 10/07/2024 5:19 PM EDT MAGNESIUM STAT 10/07/2024 5:19 PM EDT COMPREHENSIVE METABOLIC PANEL STAT 10/07/2024 5:19 PM EDT CBC AND DIFFERENTIAL STAT 10/07/2024 5:19 PM EDT SCR MAMMO BI INCL CAD Routine 09/02/2017 2:11 PM EST Encounter for screening mammogram for malignant neoplasm of breast HM HEPATITIS C SCREENING Routine 07/18/2015 from Last 3 Months or Most Recently Relevant to Health Maintenance Results * (ABNORMAL) Urinalysis with reflex microscopic and culture (10/07/2024 9:54 PM EDT) Specific [place] Urine 1.020 1.003 - 1.030 LAB URINALYSIS - AUTOMATED METHOD 10/07/2024 10:53 PM [facility] pH, Urine 6.0 5.0 - 8.0 pH LAB URINALYSIS - AUTOMATED METHOD 10/07/2024 10:53 PM [facility] Leukocytes, Urine Moderate(A) Negative LAB URINALYSIS - AUTOMATED METHOD 10/07/2024 10:53 PM [facility] Nitrite, Urine Negative Negative LAB URINALYSIS - AUTOMATED METHOD 10/07/2024 10:53 PM [facility] Protein, Urine 30(A) <=Trace mg/dL LAB URINALYSIS - AUTOMATED METHOD 10/07/2024 10:53 PM [facility] Glucose, Urine Negative Negative mg/dL LAB URINALYSIS - AUTOMATED METHOD 10/07/2024 10:53 PM [facility] Ketones, Urine 15(A) Negative mg/dL LAB URINALYSIS - AUTOMATED METHOD 10/07/2024 10:53 PM [facility] Urobilinogen , Urine 0.2 0.2 - 1.0 mg/dL LAB URINALYSIS - AUTOMATED METHOD 10/07/2024 10:53 PM [facility] Bilirubin, Urine Negative Negative LAB URINALYSIS - AUTOMATED METHOD 10/07/2024 10:53 PM [facility] Blood, Urine Small(A) Negative LAB URINALYSIS - AUTOMATED METHOD 10/07/2024 10:53 PM [facility] RBC, Urine 8.1(H) 0 - 4 /HPF LAB URINALYSIS - AUTOMATED METHOD 10/07/2024 10:53 PM [facility] WBC, Urine 10.0(H) 0 - 4 /HPF LAB URINALYSIS - AUTOMATED METHOD 10/07/2024 10:53 PM [facility] Squamous Epithelial, Urine >100(H) 0 - 60 /LPF LAB URINALYSIS - AUTOMATED METHOD 10/07/2024 10:53 PM EDT [facility] Crystals, Urine Light Amorphous Urate crystals. /LPF 10/07/2024 10:53 PM EDT [facility] Bacteria, Urine Many(A) Negative /HPF LAB URINALYSIS - AUTOMATED METHOD 10/07/2024 10:53 PM EDT [facility] Hyaline Casts, Urine 0 0 - 3 /LPF LAB URINALYSIS - AUTOMATED METHOD 10/07/2024 10:53 PM EDT [facility] Urine Urine specimen obtained by clean catch procedure / Unknown Non-blood Collection / Unknown 10/07/2024 9:54 PM EDT 10/07/2024 10:08 PM EDT Jacques GREENWOOD LAB URINE ORDERABLES Final Resul t Performing Organization Address City/[facility]/ZIP Co de Phone Number [facility] [address] [place] [address], [place] [phone] * Mercedes urine culture tube (10/07/2024 9:54 PM EDT) Extra Tube Hold for add-ons. 10/08/2024 12:02 AM EDT [facility] Comment:Auto resulted. Urine Urine specimen obtained by clean catch procedure / Unknown Non-blood Collection / Unknown 10/07/2024 9:54 PM EDT 10/07/2024 10:08 PM EDT Jacques GREENWOOD LAB URINE ORDERABLES Final Resul t Performing Organization Address City/[facility]/ZIP Co de Phone Number [facility] [address] [place] [address], [place] [phone] * Culture urine (10/07/2024 9:54 PM EDT) Culture, Urine 50,000-99,000 CFU/mL Mixed bacterial morphotypes present suggestive of possible contamination during collection. Suggest appropriate recollection if clinically indicated. 10/09/2024 9:41 AM EDT [facility] Urine Urine specimen obtained by clean catch procedure / Unknown Non-blood Collection / Unknown 10/07/2024 9:54 PM EDT 10/07/2024 10:53 PM EDT us Jacques GREENWOOD LAB MICROBIOLOGY - GENERAL ORDER STEVIE Final Result [facility] [address] [place] [address], [place] [phone] * CT Abdomen Pelvis w Contrast (10/07/2024 9:03 PM EDT) Anatomical Region Laterality Modality Body Computed Tomogra phy 10/07/2024 9:38 PM EDT Impressions 10/07/2024 9:38 PM EDT Impression: No acute process This document has been electronically signed by: Marcell Graham MD on 10/07/2024 21:38:17 Narrative 10/07/2024 9:38 PM EDT INDICATION: Nausea/vomiting CT abdomen and pelvis with contrast Comparison: None Findings: Lung bases are clear. No acute bony abnormalities. L2-3 fusion hardware is intact. Liver and spleen within normal limits. Pancreas and adrenal glands unremarkable. Gallbladder is not identified. No significant focal renal abnormalities. No renal stones or hydronephrosis. Abdominal aorta is normal in caliber. No free fluid or adenopathy in the pelvis. No diverticulitis. Appendix not identified. Hysterectomy. No adnexal abnormality. Procedure Note Marcell Graham MD - 10/07/2024 INDICATION: Nausea/vomiting CT abdomen and pelvis with contrast Comparison: None Findings: Lung bases are clear. No acute bony abnormalities. L2-3 fusion hardware is intact. Liver and spleen within normal limits. Pancreas and adrenal glands unremarkable. Gallbladder is not identified. No significant focal renal abnormalities. No renal stones or hydronephrosis. Abdominal aorta is normal in caliber. No free fluid or adenopathy in the pelvis. No diverticulitis. Appendix not identified. Hysterectomy. No adnexal abnormality. IMPRESSION: Impression: No acute process This document has been electronically signed by: Marcell Graham MD on 10/07/2024 21:38:17 Jacques GREENWOOD [facility] CT PROCEDURES Final Result * Respiratory virus panel molecular study (10/07/2024 7:07 PM EDT) Adenovirus Detection by PCR Not Detected Not Detected LAB MICROBIOLOGY METHOD 10/07/2024 9:15 PM EDT [facility] Influenza A PCR Not Detected Not Detected LAB MICROBIOLOGY METHOD 10/07/2024 9:15 PM EDT [facility] Influenza B PCR Not Detected Not Detected LAB MICROBIOLOGY METHOD 10/07/2024 9:15 PM EDT [facility] Coronavirus 229E Not Detected Not Detected LAB MICROBIOLOGY METHOD 10/07/2024 9:15 PM EDT [facility] Coronavirus HKU1 Not Detected Not Detected LAB MICROBIOLOGY METHOD 10/07/2024 9:15 PM EDT [facility] Coronavirus OC43 Not Detected Not Detected LAB MICROBIOLOGY METHOD 10/07/2024 9:15 PM EDT [facility] Coronavirus NL63 Not Detected Not Detected LAB MICROBIOLOGY METHOD 10/07/2024 9:15 PM EDT [facility] Parainfluenza Virus 1 Not Detected Not Detected LAB MICROBIOLOGY METHOD 10/07/2024 9:15 PM EDT [facility] Parainfluenza Virus 2 Not Detected Not Detected LAB MICROBIOLOGY METHOD 10/07/2024 9:15 PM EDT [facility] Parainfluenza Virus 3 Not Detected Not Detected LAB MICROBIOLOGY METHOD 10/07/2024 9:15 PM EDT [facility] Parainfluenza Virus 4 Not Detected Not Detected LAB MICROBIOLOGY METHOD 10/07/2024 9:15 PM EDT [facility] RSV PCR Not Detected Not Detected LAB MICROBIOLOGY METHOD 10/07/2024 9:15 PM EDT [facility] Human Metapneumovirus A and B Not Detected Not Detected LAB MICROBIOLOGY METHOD 10/07/2024 9:15 PM EDT [facility] Rhinovirus/Entero virus Not Detected Not Detected LAB MICROBIOLOGY METHOD 10/07/2024 9:15 PM EDT [facility] Bordetella pertussis Not Detected Not Detected LAB MICROBIOLOGY METHOD 10/07/2024 9:15 PM EDT [facility] Bordetella parapertussis Not Detected Not Detected LAB MICROBIOLOGY METHOD 10/07/2024 9:15 PM EDT [facility] Mycoplasma pneumo by PCR Not Detected Not Detected LAB MICROBIOLOGY METHOD 10/07/2024 9:15 PM EDT [facility] Chlamydia pneumoniae Not Detected Not Detected LAB MICROBIOLOGY METHOD 10/07/2024 9:15 PM EDT [facility] SARS COV-2 Not Detected Not Detected LAB MICROBIOLOGY METHOD 10/07/2024 9:15 PM EDT [facility] Swab Both anterior nares / Unknown Non-blood Collection / Unknown 10/07/2024 7:07 PM EDT 10/07/2024 8:01 PM EDT [facility] - 10/07/2024 9:15 PM EDT Testing was performed using the [employer] Respiratory Pathogen PCR Assay. All results must be correlated with the clinical findings. Results should not be used as the sole basis for diagnosis. False Negative results may occur from the presence of sequence variants in the region targeted by the assay or the presence of inhibitors. Results may be affected by concurrent antiviral/antimicrobial therapy or levels of organisms that are below the limit of detection. Onofre Menard MD LAB MICROBIOLOGY - GENERAL KYLEE EVANS Final Result [facility] [address] [place] [address], * (ABNORMAL) Manual differential (10/07/2024 5:19 PM EDT) Neutrophils % 39.0 % LAB HEMETOLOGY METHOD 10/07/2024 6:37 PM EDT [facility] Lymphocytes % 36.0 % LAB HEMETOLOGY METHOD [facility]/07[facility]2024 6[facility] Reactive Lymphocyte 12.00 % LAB HEMETOLOGY METHOD 10/07/2024 6:37 PM EDT [facility] Monocytes % 10.0 % LAB HEMETOLOGY METHOD 10/07/2024 6:37 PM EDT [facility] Eosinophils % 2.0 % LAB HEMETOLOGY METHOD 10/07[facility]2024 6[facility] Basophils % 1.0 % LAB HEMETOLOGY METHOD 10/07/2024 6:37 PM [facility] Neutrophils Absolute Manual 2.73 1.50 - 7.00 K/mcL LAB HEMETOLOGY METHOD 10/07/2024 6:37 [facility] Lymphocytes Absolute 2.52 1.00 - 5.00 K/mcL LAB HEMETOLOGY METHOD 10/07/2024 6:37 PM [facility] Reactive Lymph Abs Manual 0.84(H) 0.00 - 0.00 lym LAB HEMETOLOGY METHOD 10/07/2024 6:37 PM [facility] Monocytes Absolute Manual 0.70 0.20 - 1.00 K/mcL LAB HEMETOLOGY METHOD 10/07/2024 6:37 PM T [facility] Eosinophils Absolute Manual 0.14 0.00 - 0.50 K/mcL LAB HEMETOLOGY METHOD 10/07/2024 6:37 PM [facility] Basophils Absolute Manual 0.07 0.00 - 0.20 K/mcL LAB HEMETOLOGY METHOD 10/07/2024 6:37 PM [facility] Rbc Morphology Consistent with indices Consistent with indices, Normal for LAB HEMETOLOGY METHOD 10/07/2024 6:37 PM EDT [facility] Platelet Morphology - WAM See Note(A) Normal LAB HEMETOLOGY METHOD 10/07/2024 6:37 PM EDT [facility] Comment:PLT: Normal Blood Venous blood specimen / Unknown Venipuncture / Unknown 10/07/2024 5:19 PM EDT 10/07/2024 5:31 PM EDT us Lilian Bakari Manuel Charly DO LAB BLOOD ORDERABLES Elenita l Result [facility] [address] [place] [address], [place] [phone] * (ABNORMAL) CBC auto differential (10/07/2024 5:19 PM EDT) WBC 7.0 4.8 - 10.8 K/mcL LAB HEMETOLOGY METHOD 10/07/2024 6:37 PM EDT [facility] RBC 5.20(H) 3.80 - 4.80 M/mcL LAB HEMETOLOGY METHOD 10/07/2024 6:37 PM EDT [facility] Hemoglobin 14.7 11.5 - 16.0 g/dL LAB HEMETOLOGY METHOD 10/07/2024 6:37 PM EDT [facility] Hematocrit 45.3 35.0 - 47.0 % LAB HEMETOLOGY METHOD 10/07/2024 6:37 PM EDT [facility] MCV 87.6 79.0 - 98.0 FL LAB HEMETOLOGY METHOD 10/07/2024 6:37 PM EDT [facility] MCH 28.4 27.0 - 32.0 pcg LAB HEMETOLOGY METHOD 10/07/2024 6:37 PM EDT [facility] MCHC 32.5 32.0 - 37.0 g/dL LAB HEMETOLOGY METHOD 10/07/2024 6:37 PM EDT [facility] RDW 13.8 11.0 - 15.0 % LAB HEMETOLOGY METHOD 10/07/2024 6:37 PM EDT [facility] Platelets 263 130 - 400 K/mcL LAB HEMETOLOGY METHOD 10/07/2024 6:37 PM EDT [facility] MPV 10.9 7.0 - 11.0 FL LAB HEMETOLOGY METHOD 10/07/2024 6:37 PM EDT [facility] NRBC 0.0 <1.0 % LAB HEMETOLOGY METHOD 10/07/2024 6:37 PM EDT [facility] NRBC Absolute 0.00 <0.10 K/mcL LAB HEMETOLOGY METHOD 10/07/2024 6:37 PM EDT [facility] Blood Venous blood specimen / Unknown Venipuncture / Unknown 10/07/2024 5:19 PM EDT 10/07/2024 5:31 PM EDT us Lilian Parks DO LAB BLOOD ORDERABLES Elenita l Result [facility] [address] [place] [address], [place] [phone] * Magnesium (10/07/2024 5:19 PM EDT) Magnesium 2.1 1.9 - 2.6 mg/dL LAB CHEMISTRY METHOD 10/07/2024 5:56 PM EDT [facility] Blood Venous blood specimen / Unknown Venipuncture / Unknown 10/07/2024 5:19 PM EDT 10/07/2024 5:31 PM EDT us Lilian Parks DO LAB BLOOD ORDERABLES Elenita l Result [facility] [address] [place] [address], [place] [phone] * Lipase (10/07/2024 5:19 PM EDT) [facility] Lipase 30 13 - 75 unit/L LAB CHEMISTRY METHOD 10/07/2024 5:56 PM EDT [facility] Blood Venous blood specimen / Unknown Venipuncture / Unknown 10/07/2024 5:19 PM EDT 10/07/2024 5:31 PM EDT [facility] Bakari Parks DO LAB BLOOD ORDERABLES Elenita l Result [facility] [address] [place] [address], [place] [phone] * (ABNORMAL) Comprehensive metabolic panel (10/07/2024 5:19 PM EDT) [facility] Sodium 137 133 - 145 mmol/L LAB CHEMISTRY METHOD 10/07/2024 6:14 PM [facility] Potassium 4.0 3.5 - 5.5 mmol/L LAB CHEMISTRY METHOD 10/07/2024 6:14 PM [facility] Chloride 103 96 - 110 mmol/L LAB CHEMISTRY METHOD 10/07/2024 6:14 PM [facility] CO2 27 21 - 32 mmol/L LAB CHEMISTRY METHOD 10/07/2024 6:14 PM [facility] Anion Gap 7 3 - 11 LAB CHEMISTRY METHOD 10/07/2024 6:14 PM [facility] Glucose 141(H) 70 - 100 mg/dL LAB CHEMISTRY METHOD 10/07/2024 6:14 PM [facility] BUN 29(H) 5 - 25 mg/dL LAB CHEMISTRY METHOD 10/07/2024 6:14 PM [facility] Creatinine 1.07 0.50 - 1.10 mg/dL LAB CHEMISTRY METHOD 10/07/2024 6:14 PM T [facility] eGFR 57(L) >=60 mL/min/1. 73m2 LAB CHEMISTRY METHOD 10/07/2024 6:14 PM T [facility] Comment:Calculation based on the??Chronic Kidney Disease Epidemiology Collaboration (CKD-EPI) equation refit??without adjustment for race. BUN/Creatinine Ratio 27.1 LAB CHEMISTRY METHOD 10/07/2024 6:14 PM T [facility] Calcium 9.4 8.5 - 10.5 mg/dL LAB CHEMISTRY METHOD 10/07/2024 6:14 PM [facility] AST (SGOT) 22 10 - 42 unit/L LAB CHEMISTRY METHOD 10/07/2024 6:14 PM [facility] ALT (SGPT) 23 10 - 60 unit/L LAB CHEMISTRY METHOD 10/07/2024 6:14 PM [facility] Alkaline Phosphatase 77 42 - 121 unit/L LAB CHEMISTRY METHOD 10/07/2024 6:14 PM [facility] Total Protein 8.0 6.0 - 8.0 g/dL LAB CHEMISTRY METHOD 10/07/2024 6:14 PM [facility] Albumin 3.8 3.2 - 5.0 g/dL LAB CHEMISTRY METHOD 10/07/2024 6:14 PM [facility] Total Bilirubin 0.5 0.0 - 1.4 mg/dL LAB CHEMISTRY METHOD 10/07/2024 6:14 PM [facility] Blood Venous blood specimen / Unknown Venipuncture / Unknown 10/07/2024 5:19 PM EDT 10/07/2024 5:31 PM EDT Lilian Parks DO LAB BLOOD ORDERABLES Elenita l Result [facility] [address] [place] [address], * SCR MAMMO BI INCL CAD (09/02/2017 [...] risk category Low (<15%) Procedure Note Liz Chang DO - 08/08/2023 This is a summary [...] % Breast cancer risk category Low (<15%) us Akil Hernandez MD IMG XR PROCEDURES Final Result * Hepatitis C Screening (07/18/2015) Hepatitis C Screening Abstracted Historical Provider HEALTH MAINTENANCE Final Result from Last 3 Months or Most Recently Relevant to Health Maintenance [place] [address] [place] [address] MEDICARE Member Subscriber Plan / Payer (Ef fective 2022-Present) Name:Reddy Mcqueenlia Relation to Subscriber:Self Name:Reddy Mcqueenlia Payer ID:[id number] Group ID:[id number] Type:Not on file Address: [address] [id number] Advance Directives Documents on File Type Date Recorded Patient Urogynaecologist Expl anation Health Care Decision (hx) 04/01/2016 [...] (hx) 04/01/2016 AD TEE DIRECTIVE Care Teams Cardiology Specialist Relationship Specialty Start Date End Date Henrique Soler MD [address] [place] [address] [address] [place] PCP - General Internal Medicine 06/18/14
--- OUTSIDE RECORDS SUMMARY | 2024-10-12 14:43 | XMS_ITS | Data Portability ---
Author Organization [facility], [place] in - [facility] Address [address] [place] [phone] Care Team Providers Care Cartographic Designer Name Role Phone HIM CCA OTHER Assessment Encounter Date Assessment Date Assessment LastModified by Organization Details LastModified Time 10/22/2023 10/22/2023 I provided real -time medical direction via phone for this encounter and was available for additional phone-based assistance as needed. I have reviewed and agree with the Assessment and Plan as documented by the Water Aerobics Instructor. Patient given the opportunity to ask questions. Our service contacted for an assessment of: Urinary symptoms As per above, patient with approximately 24 hours of dysuria, frequency. No history of frequent urinary tract infections. Denies fever, chills, abdominal pain, back pain, flank pain. Per negative developer on the scene, Vital signs are stable [...] Lab urinalys is, dipstick [address] [facility], [address] [place] [address], [id number] 09:18:24 culture, urine 2023 024 [email or web address] [facility] (Centralized Electronic Ordering - All Locations), Patient Can Go To The Location Of Their Choice, [id number] 4 09:55:32 urinalys is, dipstick 2023 [facility]24 [facility] [address] [place] [address], [id number] 4 09:18:51 BMP, serum or plasma 2022 [email or web address] [facility], [address] [place] [address], [id number] 3 13:31:51 BMP, serum or plasma [address] [facility], [address] [place] [address], [id number] 3 19:46:18 Referral None recorded . Procedures None recorded . Surgeries None recorded . Imaging None recorded . Medication Orders levoflox acin 500 mg tablet 2023 024 GIO [facility], [address] [place], [address], 4 21:23:53 lactated Ringers intraven ous solution 2022 023 [email or web address] [facility], [address] [place], [address], 3 12:22:06 ondanset melissa 4 mg disinteg rating tablet 2022 023 GIO [facility], [address] [place], [address], 3 13:33:30 sodium chloride 0.9 % intraven ous solution 2022 023 [email or web address] [facility], [address] [place], [address], 3 13:32:47 ondanset melissa HCl (PF) 4 mg/2 mL injectio n solution 2022 023 [email or web address] [facility], [address] [place], [address], 3 13:32:47 meclizin e 25 mg tablet 2022 023 GIO [facility], [address] [place], [address], 19:55:10 Patient TargetsNo targets recorded. Patient Instructions Encounter Date Encounter Id Patient Instructions Last Modified By Organization Details Last Modified Time 02/23/2023 [id number] orthostatic vitals* GIO Not available 02/29/2024 05:01:31 Reason for Referral None Reported. Results Created Date Observation Date Name Description Value Unit Range Abnormal Flag Note LastModifiedBy Organization Detail LastModifiedTime 02/24/2002/23/2023 BMP, serum or plasm a BUN 19 Not Available [facility] [address], [address] [place] [address] 02/23/2023 19:45:16 02/24/2002/23/2023 BMP, serum or plasm a CI- 99 Not Available [facility] [address], [address] [place] [address] 02/23/2023 19:45:16 02/24/2002/23/2023 BMP, serum or plasm a CRE 0.7 Not Available [facility] [address], [address] [place] [address] 02/23/2023 19:45:16 02/24/2002/23/2023 BMP, serum or plasm a GLU 162 Not Available [facility] [address], [address] [place] [address] 02/23/2023 19:45:16 02/24/2002/23/2023 BMP, serum or plasm a K+ 4.2 Not Available [facility] [address], [address] [place] [address] 02/23/2023 19:45:16 02/24/2002/23/2023 BMP, serum or plasm a Na+ 139 Not Available [facility] [address], [address] [place] [address] 02/23/2023 19:45:16 02/24/20 23 02/23/2023 BMP, serum or plasm a tCO2 20 Not Available [facility] [address], [phone] 02/23/2023 19:45:16 03/01/20 23 03/01/2023 BMP, serum or plasm a BUN 23 Not Available [facility] [address], [address] 03/01/2023 13:31:01 03/01/20 23 03/01/2023 BMP, serum or plasm a CRE 0.7 Not Available [facility] [address], [address] 03/01/2023 13:31:01 03/01/20 23 03/01/2023 BMP, serum or plasm a GLU 131 Not Available [facility] [address], [address] [place] [address] 03/01/2023 13:31:01 03/01/20 23 03/01/2023 BMP, serum or plasm a K+ 4.6 Not Available [facility] [address], [address] 03/01/2023 13:31:01 03/01/20 23 03/01/2023 BMP, serum or plasm a Na+ 140 Not Available [facility] [address], [address] 03/01/2023 13:31:01 03/01/2003/01/2023 BMP, serum or plasm a tCO2 28 Not Available [facility] [address], [address] 03/01/2023 13:31:01 Result Notes None recorded. Medical [...] % 118 mm[Hg] 76 mm[Hg] Not Available [facility] 3 18:33:45 Date Recorded Body temperature Respiratory rate Heart rate Body weight Oxygen saturation Oxygen saturation in Arterial blood by Pulse oximetry Systolic blood pressure Diastolic blood pressure Provider Name and Address Organization Details Last Updated DateTime 3 98.8 [degF] 16 /min 64 /min 968554. 76 g 98 % 98 % 126 mm[Hg] 80 mm[Hg] Not Available [facility] 3 13:28:39 Date Recorded Body temperature Respiratory rate Heart rate Oxygen saturation Oxygen saturation in Arterial blood by Pulse oximetry Systolic blood pressure Diastolic blood pressure Provider Name and Address Organization Details Last Updated DateTime 3 97.9 [degF] 16 /min 99 /min 97 % 97 % 128 mm[Hg] 78 mm[Hg] Not Available [employer] 3 11:48:04 Date Recorded Body temperature Heart rate Respiratory rate Oxygen saturation Oxygen saturation in Arterial blood by Pulse oximetry Systolic blood pressure Diastolic blood pressure Provider Name and Address Organization Details Last Updated DateTime 3 96.9 [degF] 72 /min 16 /min 100 % 100 % 161 mm[Hg] 90 mm[Hg] Not Available [facility] 3 15:42:48 Date Recorded Body weight Body height Body temperature Oxygen saturation Oxygen saturation in Arterial blood by Pulse oximetry Respiratory rate Heart rate Systolic blood pressure Diastolic blood pressure Provider Name and Address Organization Details Last Updated DateTime 4 01122.6 g 152.4 cm 98.4 [degF] 96 % 96 % 14 /min 80 /min 124 mm[Hg] 80 mm[Hg] Not Available [facility] - production 21:21:02 Social History None recorded. Functional Status None recorded. Mental Status None recorded. Family History Nothing Reported. Medical History No medical history recorded. Gynecological HistoryNo gynecological history recorded. Obstetrics History GPAL:G 0 P 0 0 0 0 Past Encounters Encounter ID Performer Location Encounter Start Date Encounter Closed Date Diagnosis/Indication Diagnosis SNOMED-CT Code Diagnosis ICD10 Code Diagnosis Note [id number] Kesha Beck MD Main - [address] [address] 02/21/2023 15:44:06 02/22/2023 15:35:21 Dehydration 07250075 E86.0 [id number] Sajan Rueda MD [facility] - [address] [address] 02/23/2023 18:33:42 02/24/2023 07:20:36 Dizziness 031111750 R42 As noted, we were called to see this patient regarding concerns of dizziness/ unsteadine ss. Evaluation in the field was performed by my negative developer colleague, as noted above, I provided real-time [...] uncertain etiology, ddx includes hypovolemi a, meds, NETWORK ARCHITECT or PNS process, including focal lesions, neuropathy [...] particular ly falling, confusion, face/arm/l eg weakness. [id number] Madelyn Robertson MD Main - [address] [address] 03/01/2023 13:28:34 03/04/2023 11:06:40 Acute gastroenteritis 38187286 K52.9 Evaluation in the field was performed by my negative developer colleague, as noted above, I provided real-time [...] shortness of breath, cough, chest pain, fever. [id number] Carmen Pemberton MD Main - [address] [address] 03/02/2023 11:45:43 03/04/2023 11:11:38 Acute gastroenteritis 53164398 K52.9 67 yo w/ gastroente ritis, seen two days ago by [facility] w/ [...] on Friday morning. Questions answered; pt and negative developer agreeable with plan [id number] Jose Hawk MD Main - [facility] [address] [place] [phone] 04/06/2023 15:42:46 04/07/2023 08:17:20 Syncope and collapse 350778584 R55 This 67-year-ol d female has had two episodes of syncope without warning in the past 24 hours. She did hit her head and now complains of head and neck pain. I recommende d that she go to the ER for further evaluation and treatment. The patient resisted this recommenda tion, so I instructed the negative developer to try and change her mind. [id number] Alie Dillard MD Main - [facility] [address] [place] [phone] 10/22/2023 21:20:49 10/23/2023 11:15:53 Urinary symptoms 845959714 R39.9 Health Concerns Section Related Observation LastModified by Organization Detai ls LastModified Time None Recorded Concern Status LastModified by Organization Details LastModified Time None Recorded Advance Directives Directive None Recorded Payers Encounter Date Sequence Insurance Name Policy Number Policy Maradiaga Covered Member ID Maradiaga Member ID Guarantor Name 02/23/2023 1 [facility] - DOS ON OR AFTER 2022 - DUAL ELIGIBLE - SKILLED NURSING OPTIONS AND ONE CARE (MEDICARE REPLACEMENT/ADV ANTAGE - HMO) Sabrina Mcqueen [id number] Sabrina Mcqueen 03/01/2023 1 [facility] - DOS ON OR AFTER 2022 - DUAL ELIGIBLE - SKILLED NURSING OPTIONS AND ONE CARE (MEDICARE REPLACEMENT/ADV ANTAGE - HMO) Sabrina Mcqueen [id number] Sabrina Mcqueen 03/02/2023 1 [facility] - DOS ON OR AFTER 2022 - DUAL ELIGIBLE - SKILLED NURSING OPTIONS AND ONE CARE (MEDICARE REPLACEMENT/ADV ANTAGE - HMO) Sabrina Mcqueen [id number] Sabrina Mcqueen 04/06/2023 1 [facility] - DOS ON OR AFTER 2022 - DUAL ELIGIBLE - SKILLED NURSING OPTIONS AND ONE CARE (MEDICARE REPLACEMENT/ADV ANTAGE - HMO) Sabrina Mcqueen [id number] Sabrina Mcqueen 10/22/2023 1 [facility] - DOS ON OR AFTER 2022 - DUAL ELIGIBLE - SKILLED NURSING OPTIONS AND ONE CARE (MEDICARE REPLACEMENT/ADV ANTAGE - HMO) Sabrina Mcqueen [id number] Sabrina Mcqueen Notes Date Note Type Note Provider Name and Address Organization Details Recorded Time 02/23/2023 text/html [facility] Nursing Assessment: Reason For Request: Dizziness Chief Complaints: Syncope/Dizziness/ Lightheadedness PMH: COPD/Asthma Comments: Referral taken via Bradley Linebacker Crewmember [phone]. Member identified via /name. Member seen 02/21 by [facility] for dizziness and nausea. During visit it [...] .................. .................. .................. .................. .................. .................. ............... Water Aerobics Instructor Note From Man Bolton: Dispatched to the call address for the female with dizziness. [facility] and was given 1L of fluid. Pt [...] .................. ............... Disposition: Fulfilled Sajan Rueda MD [address] [place] [address],[address], [place], [phone], [email or web address] 02/24/2023 15:04:28 03/01/2023 text/html [facility] Nursing Assessment: Chief Complaints: Abdominal Pain, Pain PMH: COPD/Asthma Allergies: No Known Comments: Pt reports having N/V/D and feeling unwell - S/S started this am - Denies denies fever/chills - Denies QUACH and Body aches - Decreased PO intake - Abdominal pain in all quadrants - Member is requesting an [employer] response requested. Jcurrier RN .................. .................. .................. .................. .................. .................. .................. ............... Water Aerobics Instructor Note From Himanshu Payne: pt requesting visit [...] POC bloodwork drawn, unremarkable. Sent results to [facility] contacted [facility] ordered 1L of NS and 4MG of zofran IVP. [facility] sent prescription for Zofran to pt's pharmacy. Pt educated on s/s warranting a 911 call/trip to the hospital. Pt advised to F/U with PCP or [facility] if symptoms persist or worsen. [facility] Lab Orders: BMP, serum or plasma: Performed .................. .................. .................. .................. .................. .................. .................. ............... Disposition: Fulfilled Madelyn Robertson MD [address] [facility],[address], [place], [phone], [facility] 03/01/2023 14:39:58 03/02/2023 text/html [facility] Nursing Assessment: Chief Complaints: Abdominal Pain, Pain PMH: COPD/Asthma Allergies: Unknown Comments: Member was evaluated yesterday by Ryley - Reports s/s remain the same and [...] POC bloodwork drawn, unremarkable. Sent results to [facility], [facility] contacted [facility] ordered 1L of NS and 4MG of zofran IVP. [facility] sent prescription for Zofran to pt's pharmacy. Pt educated on s/s warranting a 911 call/trip to the hospital. Pt advised to F/U with PCP or [facility] if symptoms persist or worsen. Shreyas TORRES .................. .................. .................. .................. .................. .................. .................. ............... Water Aerobics Instructor Note From Man Bolton: Dispatched to the [...] airway open and patent. 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 Able to speak in full sentences, -JVD, -HEENT, pupils PERRL, and soft non tender/distended, skin PWD with good turgid, lung sounds clear an equal bilaterally. [facility] consulted. IV established. BMP conducted, 1L LR given. Red flags discussed. All times are approx. .................. .................. .................. .................. .................. .................. .................. ............... Disposition: Nissa Pemberton MD [address] [place] [address],[address], [place], [address], [employer] 03/03/2023 12:22:18 04/06/2023 text/html [facility] Nursing Assessment: Chief Complaints: Syncope/Dizziness/ Lightheadedness, Falls PMH: COPD/Asthma Allergies: Unknown Comments: + dizziness since yesterday. Fall x2 yesterday and today. Unsteady gait due to dizziness. Unknown LOC. Possible head strike. c/o left wrist pain. Advised ED for further evaluation. Member declined ED after education but will accept [facility] visit first. Red flags reviewed. Instructed to call 911 for worsening symptoms. Jose Hawk MD [address] [place] [address],[address], [place], [phone], [employer] 04/06/2023 15:45:49 10/22/2023 text/html [facility] Nurse Triage Notes (Morenita Dawson): Chief Complaints: Pain PMH: COPD/Asthma Allergies: Unknown Comments: German speaking member. records and information manager used. Verified name//address. Member reports left flank pain that is getting worse. Reports multiple falls. Last fall on Friday. Member states she was evaluated s/p falls. Denies fevers. Denies urinary symptoms. Denies chest pain or shortness of breath. Advised member to call 911 with worsening signs/symptoms. .................. .................. .................. .................. .................. .................. .................. ............... Water Aerobics Instructor Note From Costa Nielsen: Patient conscious alert [...] sample culture to [facility] UA values to [facility]. [facility] orders levafloxacin 500 mg PO and will prescribe more to patients local pharmacy. Red flags and patient education discussed. Consent, signed and uploaded times two .................. .................. .................. .................. .................. .................. .................. ............... Disposition: Nissa Dillard MD [address] [facility],[address], [place], [address], [employer] 10/22/2023 21:25:11 OBGyn Episode No OBEpisode recorded.
--- OUTSIDE RECORDS SUMMARY | 2024-10-12 14:43 | XMS_ITS | Encounter Summary ---
Author Organization [facility] Address [id number] [place] [id number] Care Team Providers Care Varnish Dipper Name Role Phone Henrique Soler MD Primary Care Provider [phone] Reason for Visit * Reason Comments Vomiting Diarrhea Cough Encounter Details Date Type Department Care Team (Late st Contact Info) Description 10/07/2024 6:14 PM EDT - 10/08/2024 1:34 AM EDT Emergency [facility] Emergency [address] [place] [address] Viral gastroenteritis (Primary Dx) Discharge Disposition: Home or Self Care Social History Tobacco Use Types Packs/Day Years [...] Orientation Straight 05/18/2024 4: 41 PM EST documented as of this encounter Last Filed Vital Signs Vital Sign Reading [...] Mass Index 38.74 10/07/2024 5:07 PM EDT documented in this encounter Discharge Instructions * Discharge Instructions* KRYSTYNA Solano - 10/08/2024 1:26 AM EDT Chidi por elegir el Departamento de Urgencias del [facility] para rodrigues atenci??n de hoy. En lisa momento, no hay indicaci??n de ingreso hospitalario ni de observaci??n continua en el Departamento de Urgencias, y es seguro darle de adiel. Afortunadamente, rodrigues an??lisis de laboratorio y la tomograf??a computarizada de hoy no mostraron evidencia de alena cirug??a aguda ni de otra emergencia responsable de sangeeta s??ntomas. Es probable que sufra alena infecci??n viral del tracto gastrointestinal que le est?? causando v??mitos y diarrea. Mant??ngase kyleigh hidratado y descanse lo suficiente. [place] Zofran seg??n lo prescrito si presenta n??useas o v??mitos adicionales. Consulte con rodrigues m??dico de cabecera para alena reevaluaci??n, un manejo adicional de sangeeta s??ntomas y atenci??n preventiva continua. Si no tiene un m??dico de cabecera, llame a [facility] al [phone] para asignarle nolvia nuevo. Regrese al departamento de emergencias si desarrolla un cambio repentino y haley en sangeeta s??ntomas,fiebre de m??s de 100.4, v??mitos severos o recurrentes o un aumento repentino del dolor o si experimenta cualquier otro s??ntoma o inquietud nuevo o que empeora. Thank you for choosing [facility]'s Emergency Department for your care today. At this time there is no indication for admission to the hospital or continued ED observation, and it is safe to discharge you home. Thankfully your laboratory evaluation and CT today showed no evidence of an acute surgical or otheremergent process responsible for your symptoms. You are likely suffering from a viral infection of your gastrointestinal tract which is causing your vomiting and diarrhea. Please stay well hydrated and get plenty of rest. Please take Zofran as prescribed as needed for additional nausea or vomiting. Please follow up with your primary care physician for re-evaluation, additional management of your symptoms, and continued preventative care. If you do not have a primary care physician, please call the [facility] at [phone] [facility]. Please return to the emergency department if you develop a sudden severe change in your symptoms, afever over 100.4, severe or recurrent vomiting, or a sudden increase in pain or if you experience any other new or worsening symptoms or concerns. * Attachments The following attachments cannot be sent through Care Everywhere. * Gastroenteritis (Ukrainian) documented in this encounter Medications at Time of Discharge albuterol sulfate (PROAIR HFA INHL) Inhale into the lungs as needed bupropion HCl (BUDEPRION SR ORAL) Take by mouth. buPROPion SR (WELLBUTRIN SR) 100 mg 12 hr tablet 04/30/2024 busPIRone (BUSPAR) 10 mg tablet 04/01/2024 cefpodoxime (VANTIN) 200 mg tablet 10/27/2023 cholecalciferol (VITAMIN D-3) 125 mcg (5,000 unit) capsule Take 1 capsule (5,000 Units total) by mouth 1 (one) time per week. citalopram (CeleXA) 10 mg tablet Take 1 tablet (10 mg total) by mouth 1 (one) time each day. loratadine (CLARITIN) 10 mg tablet Take 1 tablet (10 mg total) by mouth 1 (one) time each day. LORazepam (ATIVAN) 0.5 mg tablet Take 1 tablet (0.5 mg total) by mouth every 6 (six) hours if needed. meloxicam (MOBIC) 15 mg tablet Take 1 tablet (15 mg total) by mouth 1 (one) time each day. nortriptyline (PAMELOR) 25 mg capsule Take 1 capsule (25 mg total) by mouth 2 (two) times a day. omeprazole (PriLOSEC) [address] capsule Take 1 capsule (20 mg total) by mouth 1 (one) time each day. ondansetron ODT (ZOFRAN-ODT) 4 mg disintegrating tabletIndications:Vir al gastroenteritis Let 1 tablet dissolve under the tongue three times daily as needed for nausea or vomiting. 10 tablet 10/08/2024 5 pregabalin (LYRICA) 100 mg capsule Take 1 capsule (100 mg total) by mouth 2 (two) times a day. tiZANidine (ZANAFLEX) 4 mg tablet Take 1 Tab by mouth every 6 hours as needed for Muscle spasms (muscle spasms topiramate (TOPAMAX SPRINKLE) 25 mg capsule Take 1 capsule (25 mg total) by mouth 2 (two) times a day. Ventolin HFA 90 mcg/actuation inhaler 05/03/2024 documented as of this encounter Ordered Prescriptions Prescription Sig Dispense Quantity Refills Last Filled Start Date End Date ondansetron ODT (ZOFRAN-ODT) 4 mg disintegrating tabletIndications:Vir al gastroenteritis Let 1 tablet dissolve under the tongue three times daily as needed for nausea or vomiting. 10 tablet 10/08/2024 5 documented in this encounter Discharge Disposition Disposition Code Departure Means Destination Comment s Home or Self Care documented in this encounter Progress Notes * Elif Esteban RN - 10/07/2024 4:57 PM EDT Pt C/O vomiting and diarrhea since Friday. Poor PO intake since onset, unable to keep fluids down. Pt states she fell out of bed 3x, unknown headstrike, denies LOC, denies thinners. Pt denies sick contacts. * KRYSTYNA Solano - 10/07/2024 4:54 PM EDT Emergency Medicine Note Patient Name: Sabrina Mcqueen Initial Evaluation: 10/07/2024 : 1955 Patient's PCP: Henrique Soler MD Emergency Physician: KRYSTYNA Solano History of Present Illness Chief Complaint: Chief Complaint Patient presents with Vomiting Diarrhea Cough HPI: The patient is a 68-year-old female with history of anxiety, depression, fibromyalgia, and GERD presenting to the ED reporting since Friday she has been experiencing recurrent vomiting and diarrhea without associated hematochezia, melena, or hematemesis. Patient reports associated generalized abdominal pain which localizes towards the suprapubic region, reports she fell out of bed 3 times yesterday but denies head strike or LOC. The patient is not coagulated. The patient reports subjective chills without objective fever, denies any associated chest pain, shortness of breath, back pain,dysuria, hematuria, or recent sick contacts. The patient reports remote history of hysterectomy andcholecystectomy, denies other surgical abdominal history. ROS: I have performed a ROS with the pertinent positives and negatives documented in the history ofpresent illness. Previous History Past Medical History: Diagnosis Date Anxiety DX:Anxiety Asthma Depression DX:Depression Fibromyalgia DX:Fibromyalgia GERD (gastroesophageal reflux disease) DX:GERD (gastroesophageal reflux disease) Vitamin D deficiency DX:Vitamin D deficiency Past Surgical History: Procedure Laterality Date BACK SURGERY PROCEDURE: HISTORICAL BACK SURGERY BREAST BIOPSY Left 2013? PROCEDURE: BX BREAST; PERC NEEDLE CORE W/IMAG GUID; COMMENT: neg SECTION PROCEDURE: HISTORICAL HYSTERECTOMY PROCEDURE: HISTORICAL HYSTERECTOMY; COMMENT: w BSO in 3 separate surgeries SHOULDER SURGERY Bilateral Social History Tobacco Use Smoking status: Never Smokeless tobacco: Never Vaping Use Vaping status: Never Used Substance Use Topics Alcohol use: Not Currently Drug use: No Family History Problem Relation Name Age of Onset Breast cancer Neg Hx is allergic to morphine, acetaminophen, acetaminophen-codeine, codeine, ibuprofen, montelukast, oxycodone, propoxyphene, and tramadol. No current facility-administered medications on file prior to encounter. Current Outpatient Medications on File Prior to Encounter Medication Sig Dispense Refill albuterol sulfate (PROAIR HFA INHL) Inhale into the lungs as needed bupropion HCl (BUDEPRION SR ORAL) Take by mouth. buPROPion SR (WELLBUTRIN SR) 100 mg 12 hr tablet busPIRone (BUSPAR) 10 mg tablet cefpodoxime (VANTIN) 200 mg tablet cholecalciferol (VITAMIN D-3) 125 mcg (5,000 unit) capsule Take 1 capsule (5,000 Units total) by mouth 1 (one) time per week. citalopram (CeleXA) 10 mg tablet Take 1 tablet (10 mg total) by mouth 1 (one) time each day. loratadine (CLARITIN) 10 mg tablet Take 1 tablet (10 mg total) by mouth 1 (one) time each day. LORazepam (ATIVAN) 0.5 mg tablet Take 1 tablet (0.5 mg total) by mouth every 6 (six) hours if needed. meloxicam (MOBIC) 15 mg tablet Take 1 tablet (15 mg total) by mouth 1 (one) time each day. nortriptyline (PAMELOR) 25 mg capsule Take 1 capsule (25 mg total) by mouth 2 (two) times a day. omeprazole (PriLOSEC) [address] capsule Take 1 capsule (20 mg total) by mouth 1 (one) time each day. pregabalin (LYRICA) 100 mg capsule Take 1 capsule (100 mg total) by mouth 2 (two) times a day. tiZANidine (ZANAFLEX) 4 mg tablet Take 1 Tab by mouth every 6 hours as needed for Muscle spasms (muscle spasms topiramate (TOPAMAX SPRINKLE) 25 mg capsule Take 1 capsule (25 mg total) by mouth 2 (two) times a day. Ventolin HFA 90 mcg/actuation inhaler Physical Exam Vitals: 10/07/24 1842 10/07/24 1900 10/07/24 2158 10/08/24 0115 BP: 134/79 117/76 121/75 BP Location: Right arm;Upper Right arm;Upper Left arm Patient Position: Lying Lying Sitting Pulse: 94 76 68 Resp: 16 16 18 Temp: 36.9 ??C (98.4 ??F) 36.9 ??C (98.5 ??F) 36.8 ??C (98.2 ??F) TempSrc: Oral Oral Oral SpO2: 96% 97% 97% 98% Weight: Height: CONSTITUTIONAL: The patient appears non-toxic, well nourished and in no acute distress. Vital signsreviewed as documented. HEAD: Atraumatic, normocephalic. EYES: EOMs grossly intact, pupils equal, conjunctiva clear, no exudate. ENT: Nares patent, no discharge. Airway patent, no audible stridor, visible mucosa is pink and moist without noted lesions. NECK: Trachea is midline, no obvious masses or gross abnormalities. CHEST: Symmetric movement, normal appearance. LUNGS: LS present and CTAB, no w/r/r. Non-labored work of breathing. CARDIAC: Regular Rhythm, S1/S2 appreciated, no murmurs, rubs or gallops. ABDOMEN: Abdomen soft x4 quadrants, positive tenderness to palpation of the suprapubic region, no masses or organomegaly. : Deferred. EXTREMITIES: Normal tone, moves all extremities spontaneously without reported pain. No obvious injury or deformity noted. NEURO: Alert and oriented x3, CN II-XII appear grossly intact. Cerebellar Functioning grossly intact. Speech clear and appropriate. PSYCH: normal affect, with appropriate eye contact and fluid, appropriate speech. No reported suicidality or homicidality. SKIN: Warm, dry, color appropriate, normal turgor. No rashes noted. Results Labs Reviewed COMPREHENSIVE METABOLIC PANEL - Abnormal Result Value Sodium 137 Potassium 4.0 Chloride 103 CO2 27 Anion Gap 7 Glucose 141 (*) BUN 29 (*) Creatinine 1.07 eGFR 57 (*) BUN/Creatinine Ratio 27.1 Calcium 9.4 AST (SGOT) 22 ALT (SGPT) 23 Alkaline Phosphatase 77 Total Protein 8.0 Albumin 3.8 Total Bilirubin 0.5 CBC WITH AUTO DIFFERENTIAL - Abnormal WBC 7.0 RBC 5.20 (*) Hemoglobin 14.7 Hematocrit 45.3 MCV 87.6 MCH 28.4 MCHC 32.5 RDW 13.8 Platelets 263 MPV 10.9 NRBC 0.0 NRBC Absolute 0.00 URINALYSIS WITH REFLEX MICROSCOPIC AND CULTURE - Abnormal Specific [place] Urine 1.020 pH, Urine 6.0 Leukocytes, Urine Moderate (*) Nitrite, Urine Negative Protein, Urine 30 (*) Glucose, Urine Negative Ketones, Urine 15 (*) Urobilinogen, Urine 0.2 Bilirubin, Urine Negative Blood, Urine Small (*) RBC, Urine 8.1 (*) WBC, Urine 10.0 (*) Squamous Epithelial, Urine >100 (*) Crystals, Urine Light Amorphous Urate crystals. Bacteria, Urine Many (*) Hyaline Casts, Urine 0 MANUAL DIFFERENTIAL - INSTRUMENT DIFFERENTIAL - Abnormal Neutrophils % 39.0 Lymphocytes % 36.0 Reactive Lymphocyte 12.00 Monocytes % 10.0 Eosinophils % 2.0 Basophils % 1.0 Neutrophils Absolute Manual 2.73 Lymphocytes Absolute 2.52 Reactive Lymph Abs Manual 0.84 (*) Monocytes Absolute Manual 0.70 Eosinophils Absolute Manual 0.14 Basophils Absolute Manual 0.07 Rbc Morphology Consistent with indices Platelet Morphology - WAM See Note (*) RESPIRATORY VIRUS PANEL MOLECULAR STUDY - Normal Adenovirus Detection by PCR Not Detected Influenza A PCR Not Detected Influenza B PCR Not Detected Coronavirus 229E Not Detected Coronavirus HKU1 Not Detected Coronavirus OC43 Not Detected Coronavirus NL63 Not Detected Parainfluenza Virus 1 Not Detected Parainfluenza Virus 2 Not Detected Parainfluenza Virus 3 Not Detected Parainfluenza Virus 4 Not Detected RSV PCR Not Detected Human Metapneumovirus A and B Not Detected Rhinovirus/Enterovirus Not Detected Bordetella pertussis Not Detected Bordetella parapertussis Not Detected Mycoplasma pneumo by PCR Not Detected Chlamydia pneumoniae Not Detected SARS COV-2 Not Detected Narrative: Testing was performed using the [employer] Respiratory Pathogen PCR Assay. All results must [...] that are below the limit of detection. MAGNESIUM - Normal Magnesium 2.1 LIPASE - Normal Lipase 30 CULTURE URINE CBC AND DIFFERENTIAL Narrative: The following orders were created for panel order CBC and differential. Procedure Abnormality Status --------- ------ CBC auto differential[[id number]] Abnormal Final result Please view results for these tests on the individual orders. URINALYSIS WITH REFLEX MICROSCOPIC AND CULTURE Narrative: The following orders were created for panel order Urinalysis with reflex microscopic and culture. Procedure Abnormality Status --------- ------ Urinalysis with reflex ...[[id number]] Abnormal Final result Mercedes urine culture tube[[id number]] Final result Please view results for these tests on the individual orders. Abnormal Labs Reviewed COMPREHENSIVE METABOLIC PANEL - Abnormal; Notable for the following components: Result Value Glucose 141 (*) BUN 29 (*) eGFR 57 (*) All other components within normal limits CBC WITH AUTO DIFFERENTIAL - Abnormal; Notable for the following components: RBC 5.20 (*) All other components within normal limits URINALYSIS WITH REFLEX MICROSCOPIC AND CULTURE - Abnormal; Notable for the following components: Leukocytes, Urine Moderate (*) Protein, Urine 30 (*) Ketones, Urine 15 (*) Blood, Urine Small (*) RBC, Urine 8.1 (*) WBC, Urine 10.0 (*) Squamous Epithelial, Urine >100 (*) Bacteria, Urine Many (*) All other components within normal limits MANUAL DIFFERENTIAL - INSTRUMENT DIFFERENTIAL - Abnormal; Notable for the following components: Reactive Lymph Abs Manual 0.84 (*) Platelet Morphology - WAM See Note (*) All other components within normal limits CT Abdomen Pelvis w Contrast Final Result Impression: No acute process This document has been electronically signed by: Marcell Graham MD on 10/07/2024 21:38:17 I have discussed any resulted incidental/abnormal imaging and/or lab abnormalities with the patientand have instructed them of the need for further evaluation and workup with their primary care doctor. All available laboratory results, imaging results and other diagnostic exam results were reviewed in the EMR. EKG Interpretation Critical Care Time None ? Medical Decision Making Patient is a 68-year-old female presenting to the ED for evaluation of vomiting and diarrhea since Friday. Patient reports 3 episodes of falling when trying to get out of bed yesterday, denies headstrike or LOC. The patient's exam reveals moderate suprapubic tenderness, without reported dysuria or hematuria. The patient's laboratory evaluation thus far is reassuring, no leukocytosis, anemia, electrolyte deficiency, or abnormal lipase. The patient does have slight KAIT with BUN 29, likely prerenal. The patient will be treated with IV fluids, morphine, Zofran, and we will obtain urinalysis and CT abdomen to rule out urinary pathology or acute intra-abdominal process. ED Course as of 10/08/24 0712 FriOct 08, 2024 0108 The patient's urinalysis shows moderate leukocyte esterase, no nitrates, 10 WBCs, many bacteria, but appears contaminated with greater than 100 squamous epithelial cells. The patient CT shows noacute intra-abdominal process. Viral swab is negative for viral URI. Patient continues to deny any dysuria or other urinary complaint. At this time patient is likely suffering from viral gastroenteritis the patient reports improvement in symptoms following interventions in the ED, will discharge with Zofran and supportive care. [RM] ED Course User Index [RM] KRYSTYNA Solano Clinical Impressions as of 10/08/24 0712 Viral gastroenteritis Medications sodium chloride 0.9 % bolus 1,000 mL (0 mL intravenous Stopped 10/07/242320) ondansetron (PF) (ZOFRAN) injection 4 mg (4 mg intravenous Given 10/07/242039) sodium chloride 0.9 % flush 10 mL (10 mL intravenous Given 10/07/242057) iopamidoL (ISOVUE-370) 370 mg iodine /mL (76 %) injection 100 mL (100 mL intravenous Given 10/07/242058) Procedures Procedures Diagnosis 1. Viral gastroenteritis ondansetron ODT (ZOFRAN-ODT) 4 mg disintegrating tablet Disposition Discharge ED Prescriptions Medication Sig Dispense Start Date End Date Auth. Provider ondansetron ODT (ZOFRAN-ODT) 4 mg disintegrating tablet Let 1 tablet dissolve under the tongue three times daily as needed for nausea or vomiting. 10 tablet 10/08/2024 10/15/2024 KRYSTYNA Solano Physician Attestation KRYSTYNA Solano 10/07/242015 KRYSTYNA Solano 10/08/2412 Cosigned by Lilian Parks DO at 10/08/2024 3:07 PM EDT documented in this encounter Plan of Treatment Upcoming Encounters Date Type Department Care Team (Late st Contact Info) Description 10/20/2024 10:30 AM EDT Office Visit Orthopedic Surgery - Likely [address] [address] Tyshawn Milner, DPM [address] [address] documented as of this encounter Procedures Procedure Name Priority Date/Time Associated Diagnosis Comments URINALYSIS WITH REFLEX MICROSCOPIC AND CULTURE STAT 10/07/2024 9:54 PM EDT [facility] URINE CULTURE TUBE STAT 10/07/2024 9:54 [...] AUTO DIFFERENTIAL STAT 10/07/2024 5:19 PM EDT CBC AND DIFFERENTIAL STAT 10/07/2024 5:19 PM EDT MAGNESIUM STAT 10/07/2024 5:19 PM EDT LIPASE STAT 10/07/2024 5:19 PM EDT COMPREHENSIVE METABOLIC PANEL STAT 10/07/2024 5:19 PM EDT documented in this encounter Results * Culture urine (10/07/2024 9:54 PM EDT) Culture, Urine 50,000-99,000 CFU/mL Mixed bacterial morphotypes present suggestive of possible contamination during collection. Suggest appropriate recollection if clinically indicated. 10/09/2024 9:41 AM EDT [facility] Urine Urine specimen obtained by clean catch procedure / Unknown Non-blood Collection / Unknown 10/07/2024 9:54 PM EDT 10/07/2024 10:53 PM EDT [facility] MICROBIOLOGY - GENERAL ORDER STEVIE Final Result Performing Organization Address City/[facility]/ZIP Co de Phone Number [facility] [address] [place] [address], [place] [phone] * Mercedes urine culture tube (10/07/2024 9:54 PM EDT) Pathologist [facility] Extra Tube Hold for add-ons. 10/08/2024 12:02 AM EDT [facility] Comment:Auto resulted. Urine Urine specimen obtained by clean catch procedure / Unknown Non-blood Collection / Unknown 10/07/2024 9:54 PM EDT 10/07/2024 10:08 PM EDT Jacques [facility] URINE ORDERABLES Final Resul t Performing Organization Address [facility]/ZIP Co de Phone Number [facility] [address] [place] [address], [place] [phone] * (ABNORMAL) Urinalysis with reflex microscopic and culture (10/07/2024 9:54 PM EDT) [facility] Specific [place] Urine 1.020 1.003 - 1.030 LAB URINALYSIS - AUTOMATED METHOD 10/07/2024 10:53 PM EDT [facility] pH, Urine 6.0 5.0 - 8.0 pH LAB URINALYSIS - AUTOMATED METHOD 10/07/2024 10:53 PM EDT [facility] Leukocytes, Urine Moderate(A) Negative LAB URINALYSIS - AUTOMATED METHOD 10/07/2024 10:53 PM EDT [facility] Nitrite, Urine Negative Negative LAB URINALYSIS - AUTOMATED METHOD 10/07/2024 10:53 PM EDT [facility] Protein, Urine 30(A) <=Trace mg/dL LAB URINALYSIS - AUTOMATED METHOD 10/07/2024 10:53 PM [facility] Glucose, Urine Negative Negative mg/dL LAB URINALYSIS - AUTOMATED METHOD 10/07/2024 10:53 PM [facility] Ketones, Urine 15(A) Negative mg/dL LAB URINALYSIS - AUTOMATED METHOD 10/07/2024 10:53 PM [facility] Urobilinogen , Urine 0.2 0.2 - 1.0 mg/dL LAB URINALYSIS - AUTOMATED METHOD 10/07/2024 10:53 PM [facility] Bilirubin, Urine Negative Negative LAB URINALYSIS - AUTOMATED METHOD 10/07/2024 10:53 PM [facility] Blood, Urine Small(A) Negative LAB URINALYSIS - AUTOMATED METHOD 10/07/2024 10:53 PM [facility] RBC, Urine 8.1(H) 0 - 4 /HPF LAB URINALYSIS - AUTOMATED METHOD 10/07/2024 10:53 PM [facility] WBC, Urine 10.0(H) 0 - 4 /HPF LAB URINALYSIS - AUTOMATED METHOD 10/07/2024 10:53 PM [facility] Squamous Epithelial, Urine >100(H) 0 - 60 /LPF LAB URINALYSIS - AUTOMATED METHOD 10/07/2024 10:53 PM [facility] Crystals, Urine Light Amorphous Urate crystals. /LPF 10/07/2024 10:53 PM [facility] Bacteria, Urine Many(A) Negative /HPF LAB URINALYSIS - AUTOMATED METHOD 10/07/2024 10:53 PM [facility] Hyaline Casts, Urine 0 0 - 3 /LPF LAB URINALYSIS - AUTOMATED METHOD 10/07/2024 10:53 PM [facility] Urine Urine specimen obtained by clean catch procedure / Unknown Non-blood Collection / Unknown 10/07/2024 9:54 PM EDT 10/07/2024 10:08 PM EDT [facility] URINE ORDERABLES Final Resul t [facility] [address] [place] [address], [place] [phone] * CT Abdomen Pelvis w Contrast (10/07/2024 [...] by: Marcell Graham MD on 10/07/2024 21:38:17 us Jacques [facility] IMG CT PROCEDURES Final Result * Respiratory virus panel molecular study (10/07/2024 7:07 PM EDT) [facility] Adenovirus Detection by PCR Not Detected Not Detected LAB MICROBIOLOGY METHOD 10/07/2024 9:15 PM EDT [facility] Influenza A PCR Not Detected Not Detected LAB MICROBIOLOGY METHOD 10/07/2024 9:15 PM EDT [facility] Influenza B PCR Not Detected Not Detected LAB MICROBIOLOGY METHOD 10/07/2024 9:15 PM EDT [facility] Coronavirus 229E Not Detected Not Detected LAB MICROBIOLOGY METHOD 10/07/2024 9:15 PM EDT [facility] Coronavirus HKU1 Not Detected Not Detected LAB MICROBIOLOGY METHOD 10/07/2024 9:15 PM EDT [facility] Coronavirus OC43 Not Detected Not Detected LAB MICROBIOLOGY METHOD 10/07/2024 9:15 PM EDT [facility] Coronavirus NL63 Not Detected Not Detected LAB MICROBIOLOGY METHOD 10/07/2024 9:15 PM EDT [facility] Parainfluenza Virus 1 Not Detected Not Detected LAB MICROBIOLOGY METHOD 10/07/2024 9:15 PM EDT [facility] Parainfluenza Virus 2 Not Detected Not Detected LAB MICROBIOLOGY METHOD 10/07/2024 9:15 PM EDT [facility] Parainfluenza Virus 3 Not Detected Not Detected LAB MICROBIOLOGY METHOD 10/07/2024 9:15 PM EDT [facility] Parainfluenza Virus 4 Not Detected Not Detected LAB MICROBIOLOGY METHOD 10/07/2024 9:15 PM EDT [facility] RSV PCR Not Detected Not Detected LAB MICROBIOLOGY METHOD 10/07/2024 9:15 PM EDT [facility] Human Metapneumovirus A and B Not Detected Not Detected LAB MICROBIOLOGY METHOD 10/07/2024 9:15 PM EDT [facility] Rhinovirus/Entero virus Not Detected Not Detected LAB MICROBIOLOGY METHOD 10/07/2024 9:15 PM EDT [facility] Bordetella pertussis Not Detected Not Detected LAB MICROBIOLOGY METHOD 10/07/2024 9:15 PM EDT [facility] Bordetella parapertussis Not Detected Not Detected LAB MICROBIOLOGY METHOD 10/07/2024 9:15 PM EDT [facility] Mycoplasma pneumo by PCR Not Detected Not Detected LAB MICROBIOLOGY METHOD 10/07/2024 9:15 PM EDT [facility] Chlamydia pneumoniae Not Detected Not Detected LAB MICROBIOLOGY METHOD 10/07/2024 9:15 PM EDT [facility] SARS COV-2 Not Detected Not Detected LAB MICROBIOLOGY METHOD 10/07/2024 9:15 PM EDT [facility] Swab Both anterior nares / Unknown Non-blood Collection / Unknown 10/07/2024 7:07 PM EDT 10/07/2024 8:01 PM EDT [facility] - 10/07/2024 9:15 PM EDT Testing was performed using the [employer] Respiratory Pathogen PCR Assay. All results must [...] are below the limit of detection. Onofre Rachel Menard MD LAB MICROBIOLOGY - GENERAL KYLEE EVANS Final Result [facility] [address] [place] [address], * (ABNORMAL) Manual differential (10/07/2024 5:19 PM EDT) Neutrophils % 39.0 % LAB HEMETOLOGY METHOD 10/07/2024 6:37 PM EDT [facility] Lymphocytes % 36.0 % LAB HEMETOLOGY METHOD 10/07/2024 6:37 PM EDT [facility] Reactive Lymphocyte 12.00 % LAB HEMETOLOGY METHOD 10/07/2024 6:37 PM EDT [facility] Monocytes % 10.0 % LAB HEMETOLOGY METHOD 10/07/2024 6:37 PM [facility] Eosinophils % 2.0 % LAB [facility]OLOG[facility] Basophils % 1.0 % LAB HEMETOLOGY METHOD 10/07/2024 6:37 PM [facility] Neutrophils Absolute Manual 2.73 1.50 - 7.00 K/mcL LAB HEMETOLOGY METHOD 10/07/2024 6:37 PM [facility] Lymphocytes Absolute 2.52 1.00 - 5.00 K/mcL LAB HEMETOLOGY METHOD [facility]/07[facility]24 [facility] Reactive Lymph Abs Manual 0.84(H) 0.00 - 0.00 lym LAB HEMETOLOGY METHOD 10/07/2024 6[facility] Monocytes Absolute Manual 0.70 0.20 - 1.00 K/mcL LAB HEMETOLOGY METHOD 10/07/2024 6:37 PM [facility] Eosinophils Absolute Manual 0.14 0.00 - 0.50 K/mcL LAB HEMETOLOGY METHOD 10/07/2024 6:37 PM EDT [facility] Basophils Absolute Manual 0.07 0.00 - 0.20 K/mcL LAB HEMETOLOGY METHOD 10/07/2024 6[facility] Rbc Morphology Consistent with indices Consistent with indices, Normal for LAB HEMETOLOGY METHOD 10/07/2024 6[facility] Platelet Morphology - WAM See Note(A) Normal LAB HEMETOLOGY METHOD 10/07/2024 6:37 [facility] Comment:PLT: Normal Blood Venous blood specimen / Unknown Venipuncture / Unknown 10/07/2024 5:19 PM EDT 10/07/2024 5:31 PM EDT us Lilian Parks DO LAB BLOOD ORDERABLES Elenita l Result [facility] [address] [place] [address], [place] [phone] * (ABNORMAL) CBC auto differential (10/07/2024 5:19 PM EDT) WBC 7.0 4.8 - 10.8 K/mcL LAB HEMETOLOGY METHOD 10/07/2024 6:37 PM EDT [facility] RBC 5.20(H) 3.80 - 4.80 M/mcL LAB HEMETOLOGY METHOD 10/07/2024 6:37 PM EDT [facility] Hemoglobin 14.7 11.5 - 16.0 g/dL LAB HEMETOLOGY METHOD 10/07/2024 6:37 PM EDT [facility] Hematocrit 45.3 35.0 - 47.0 % LAB HEMETOLOGY METHOD 10/07/2024 6:37 PM EDT [facility] MCV 87.6 79.0 - 98.0 FL LAB HEMETOLOGY METHOD 10/07/2024 6:37 PM EDT [facility] MCH 28.4 27.0 - 32.0 pcg LAB HEMETOLOGY METHOD 10/07/2024 6:37 PM EDT [facility] MCHC 32.5 32.0 - 37.0 g/dL LAB HEMETOLOGY METHOD 10/07/2024 6:37 PM EDT [facility] RDW 13.8 11.0 - 15.0 % LAB HEMETOLOGY METHOD 10/07/2024 6:37 PM EDT [facility] Platelets 263 130 - 400 K/mcL LAB HEMETOLOGY METHOD 10/07/2024 6:37 PM EDT [facility] MPV 10.9 7.0 - 11.0 FL LAB HEMETOLOGY METHOD 10/07/2024 6:37 PM EDT [facility] NRBC 0.0 <1.0 % LAB HEMETOLOGY METHOD 10/07/2024 6:37 PM EDT [facility] NRBC Absolute 0.00 <0.10 K/mcL LAB HEMETOLOGY METHOD 10/07/2024 6:37 PM EDT [facility] Blood Venous blood specimen / Unknown Venipuncture / Unknown 10/07/2024 5:19 PM EDT 10/07/2024 5:31 PM EDT [facility] Bakari Jackson Parks LAB BLOOD ORDERABLES Elenita l Result Performing Organization Address City/[facility]/ZIP Co de Phone Number [facility] [address] [place] [address], [place] [phone] * Lipase (10/07/2024 5:19 PM EDT) [facility] Lipase 30 13 - 75 unit/L LAB CHEMISTRY METHOD 10/07/2024 5:56 PM EDT [facility] Blood Venous blood specimen / Unknown Venipuncture / Unknown 10/07/2024 5:19 PM EDT 10/07/2024 5:31 PM EDT [facility] [employer] LAB BLOOD ORDERABLES Elenita l Result [facility] [address] [place] [address], [place] [phone] * Magnesium (10/07/2024 5:19 PM EDT) [facility] Magnesium 2.1 1.9 - 2.6 mg/dL LAB CHEMISTRY METHOD 10/07/2024 5:56 PM [facility] Blood Venous blood specimen / Unknown Venipuncture / Unknown 10/07/2024 5:19 PM EDT 10/07/2024 5:31 PM EDT us Lilian Parks DO LAB BLOOD ORDERABLES Elenita l Result [facility] [address] [place] [address], [place] [phone] * (ABNORMAL) Comprehensive metabolic panel (10/07/2024 5:19 PM EDT) Sodium 137 133 - 145 mmol/L LAB CHEMISTRY METHOD 10/07/2024 6:14 PM [facility] Potassium 4.0 3.5 - 5.5 mmol/L LAB CHEMISTRY METHOD 10/07/2024 6:14 PM [facility] Chloride 103 96 - 110 mmol/L LAB CHEMISTRY METHOD 10/07/2024 6:14 PM [facility] CO2 27 21 - 32 mmol/L LAB CHEMISTRY METHOD 10/07/2024 6:14 PM [facility] Anion Gap 7 3 - 11 LAB CHEMISTRY METHOD 10/07/2024 6:14 PM [facility] Glucose 141(H) 70 - 100 mg/dL LAB CHEMISTRY METHOD 10/07/2024 6:14 PM [facility] BUN 29(H) 5 - 25 mg/dL LAB CHEMISTRY METHOD 10/07/2024 6:14 PM [facility] Creatinine 1.07 0.50 - 1.10 mg/dL LAB CHEMISTRY METHOD 10/07/2024 6:14 PM [facility] eGFR 57(L) >=60 mL/min/1. 73m2 LAB CHEMISTRY METHOD 10/07/2024 6:14 PM EDT [facility] Comment:Calculation based on the??Chronic Kidney Disease Epidemiology Collaboration (CKD-EPI) equation refit??without adjustment for race. BUN/Creatinine Ratio 27.1 LAB CHEMISTRY METHOD 10/07/2024 6:14 PM [facility] Calcium 9.4 8.5 - 10.5 mg/dL LAB CHEMISTRY METHOD 10/07/2024 6:14 PM [facility] AST (SGOT) 22 10 - 42 unit/L LAB CHEMISTRY METHOD 10/07/2024 6:14 PM [facility] ALT (SGPT) 23 10 - 60 unit/L LAB CHEMISTRY METHOD 10/07/2024 6:14 PM [facility] Alkaline Phosphatase 77 42 - 121 unit/L LAB CHEMISTRY METHOD 10/07/2024 6:14 PM [facility] Total Protein 8.0 6.0 - 8.0 g/dL LAB CHEMISTRY METHOD 10/07/2024 6:14 PM [facility] Albumin 3.8 3.2 - 5.0 g/dL LAB CHEMISTRY METHOD 10/07/2024 6:14 PM [facility] Total Bilirubin 0.5 0.0 - 1.4 mg/dL LAB CHEMISTRY METHOD 10/07/2024 6:14 PM [facility] Blood Venous blood specimen / Unknown Venipuncture / Unknown 10/07/2024 5:19 PM EDT 10/07/2024 5:31 PM EDT us Lilian Parks DO LAB BLOOD ORDERABLES Elenita aaliyah Result [facility] [address] [place] [address], documented in this encounter Visit Diagnoses Diagnosis Viral gastroenteritis- Primary Intestinal infection due to other organism, NEC documented in this encounter Administered Medications Inactive Administered Medications - up to 3 most recent administrations Medication Order MAR Action Action Date Dose Rate Site iopamidoL (ISOVUE-370) 370 mg iodine /mL (76 %) injection 100 mL 100 mL, intravenous, Once in imaging, Starting on Tiffanie 10/07/24 at 2049, For 1 dose Given 10/07/2024 8:59 PM EDT 100 mL ondansetron (PF) (ZOFRAN) injection 4 mg 4 mg, intravenous, Once, On Tiffanie 10/07/24 at 2009, For 1 dose Given 10/07/2024 8:40 PM EDT 4 mg sodium chloride 0.9 % bolus 1,000 mL 1,000 mL, intravenous, at 1,000 mL/hr, Administer over 1 Hours, Once, On Tiffanie 10/07/24 at 2009, For 1 dose New Bag 10/07/2024 8:40 PM EDT 1,000 mL 1000 mL/hr sodium chloride 0.9 % flush 10 mL 10 mL, intravenous, Once, On Tiffanie 10/07/24 at 2050, For 1 dose Given 10/07/2024 8:58 PM EDT 10 mL documented in this encounter Active and Recently Administered Medications Times are shown in EDT. Scheduled Medication Order 10/06/2024 10/07/2024 10/08/2024 iopamidoL (ISOVUE-370) 370 mg iodine /mL (76 %) injection 100 mL (COMPLETED) 100 mL, intravenous, Once in imaging, Starting on Tiffanie 10/07/24 at 2049, For 1 dose 2058 (Given - Provider: Sherrie Alvarez) ondansetron (PF) (ZOFRAN) injection 4 mg (COMPLETED) 4 mg, intravenous, Once, On Tiffanie 10/07/24 at 2009, For 1 dose 2039 (Given - Provider: Jennifer uW, MELISSA) sodium chloride 0.9 % bolus 1,000 mL (COMPLETED) 1,000 mL, intravenous, at 1,000 mL/hr, Administer over 1 Hours, Once, On Tiffanie 10/07/24 at 2009, For 1 dose 2039 (New Bag - Provider: Tanya Wu, MELISSA)2320 (Stopped - Provider: Tanya Wu, MELISSA) sodium chloride 0.9 % flush 10 mL (COMPLETED) 10 mL, intravenous, Once, On Tiffanie 10/07/24 at 2050, For 1 dose 2057 (Given - Provider: Sherrie Alvarez) documented in this encounter Orders Medications Ordered That Luis Fernando ht Not Have Been Administered Count Last Ordered Date First Ordered Date morphine injection 4 mg 1 10/07/2024 IV Count Last Ordered Date First Orde red Date INSERT PERIPHERAL IV 1 10/07/2024 documented in this encounter Additional Health Concerns Infection Onset Date Last Indicated Resolved Time Respiratory Rule-Out 10/07/2024 10/07/2024 025 9:15 PM EDT COVID-19 Rule-Out 10/07/2024 10/07/2024 10/07/2024 9:15 PM EDT documented as of this encounter Care Teams Varnish Dipper Relationship Specialty Start Date End Date Henrique Soler MD [address] [place] [address] Dr [address] [place] PCP - General Internal Medicine 06/18/14 documented as of this encounter
== END 2024-10-12 13:36 | disposition home or self-care (01) ==
PROVIDERS: PCP Internal Medicine
DX: R05.9 Cough, unspecified (principal)

== ENCOUNTER → 2024-10-12 13:48 | Outpatient (BNV) | payer OTHER, SELFPAY | PROVIDERS: PCP Internal Medicine; Visit Provider Radiology Diagnostic Radiology | DX: R05.9 Cough, unspecified (principal) | CPT/HCPCS: 71046 ==

== ENCOUNTER 2024-10-14 06:18 | Outpatient (REF) | payer OTHER, SELFPAY | END 2024-10-14 06:19 | disposition home or self-care (01) | LOC: CF 06:18 | PROVIDERS: Visit Provider Internal Medicine | DX: Z13.89 Encounter for screening for other disorder (principal) ==

== ENCOUNTER → 2024-11-22 23:59 | Outpatient (BNV) | payer OTHER, SELFPAY | PROVIDERS: PCP Internal Medicine; Visit Provider Internal Medicine | DX: I10 Essential (primary) hypertension (principal); K21.9 Gastro-esophageal reflux disease without esophagitis; M79.10 Myalgia, unspecified site | CPT/HCPCS: G0180 ==

== ENCOUNTER 2024-12-01 15:14 | Outpatient (AMB) | payer OTHER, SELFPAY ==
--- NOTE | 2024-12-01 15:25 | A.OFFPC_ITS ---
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 Accompanied by: Self / Same As Patient Allergies codeine [Tylenol-Codeine #3] Allergy (Intermediate, Verified 12/02/24 03:54) Rash morphine Allergy (Intermediate, Verified 12/02/24 03:54) rash and itching nalbuphine [From Nubain] Allergy (Intermediate, Verified 12/02/24 03:54) Rash oxycodone [Percocet] Allergy (Intermediate, Verified 12/02/24 03:54) Rash propoxyphene [From Darvocet-N 100] Allergy (Intermediate, Verified 12/02/24 03:54) Rash tramadol [Ultram] Allergy (Intermediate, Verified 12/02/24 03:54) Rash ibuprofen [From Motrin] Allergy (Mild, Verified 12/02/24 03:54) RASH montelukast [Singulair] Allergy (Unknown, Verified 12/02/24 03:54) Unknown Medication List - Last Reconciled 12/02/24 by Henrique Soler MD [ADULT PULL-UPS -- MEDIUM SIZE As directed] [BED PADS As directed] bupropion HCl SR 200 mg PO BID buspirone 10 mg PO BID 30 days celecoxib (Celebrex) 200 mg PO BID 30 days cholecalciferol (vitamin D3) 50 mcg PO DAILY 90 days cyanocobalamin (vitamin B-12) 1,000 mcg PO DAILY 90 days divalproex 500 mg PO BID 30 days duloxetine 30 mg PO BID 30 days ergocalciferol (vitamin D2) (Vitamin D2) 1,250 mcg PO QWEEK [Heating Pad As directed] heating pads As directed [INCONTINENCE PADS Use as directed] [LEFT KNEE BRACE As directed] lemborexant (Dayvigo) mg PO DAILY loratadine 10 mg PO DAILY PRN 30 days lorazepam mg PO meclizine 25 mg PO DAILY PRN nortriptyline 25 mg PO BID 30 days pantoprazole 40 mg PO DAILY prednisone 10 mg PO DIRECTED pregabalin 150 mg PO TID 30 days [QUAD CANE As directed] [QUAD CANE (lightweight) As directed] [RAISED TOILET SEAT As directed] [RIGHT KNEE BRACE As directed] [RIGHT THUMB SPLINT As directed] [RUBBER HANDLE/CROCHET BEADER for 4-pronged aluminum cane As directed] [RUBBER TIPS FOR QUAD CANE As directed] scopolamine base (Transderm-Scop) 1 patch transdermal Q3D PRN trazodone 50 mg PO BEDTIME PRN 30 days Ventolin HFA 90 mcg/actuation (albuterol sulfate) 2 puffs inhalation Q4-6H PRN NS [WRIST BRACE (right wrist) - MEDIUM As directed] Tobacco use date assessed: 12/01/24 Last assessed Fall Risk: 12/01/24 Dental Screening Dental Screen Date: 12/01/24 HPI back pain, increased dizziness HPI Details Patient comes in today complaining of significantly increased pain over her lower back States that she has also been experiencing increased dizziness constantly lately She went to the ER at [facility] last week following a fall; states that she was experiencing increased pain in her right hip back then She had right hip x-rays and head CT done at the ER, both of which came back negative States that she continues to experience increased dizziness, which makes her feel very unsteady and increasing her risks of falls and injuries She denies any headaches Denies any chest pains, no increased SOB No nausea/vomiting, no abdominal pain No change in bowel habits noted [facility] Medical History Folliculitis Pure hypercholesterolemia Allergic rhinitis Insomnia Multiple joint pain GERD without esophagitis Vitamin D deficiency Lumbar spondylosis Obesity (BMI 30-39.9) Migraine Primary osteoarthritis of both knees Urinary incontinence Rotator cuff tear, left Depression Asthma Fibromyalgia Non-toxic multinodular goiter Anxiety Surgical History Status post rotator cuff surgery S/P rotator cuff repair Status post right rotator cuff repair (~07/26/18) History of hysterectomy History of cholecystectomy History of laminectomy (~2009) Family History Father Diabetes Mother Medical history unknown Social History Household Members: None Housing: Apartment Do you presently have visiting nurse or other home services: No Alcohol intake: former Patient Tobacco Use Status: Never used Tobacco e-Cigarette/Vaping Use: Never Used Second Hand Smoke Exposure: No service: No Current occupational status: disabled Cognitive needs: Yes (cane) Hearing needs: No Vision needs: Yes (glasses) Questionnaire PHQ-9 Over the last 2 weeks, how often have you been bothered by any of the following problems? 1. Little interest or pleasure in doing things: not at all 2. Feeling down, depressed, or hopeless: not at all 3. Trouble falling or staying asleep, or sleeping too much: not at all 4. Feeling tired or having little energy: not at all 5. Poor appetite or overeating: not at all 6. Feeling bad about yourself - or that you are a failure or have let yourself or your family down: not at all 7. Trouble concentrating on things, such as reading the newspaper or watching television: not at all 8. Moving or speaking so slowly that other people could have noticed. Or the opposite - being so fidgety or restless that you have been moving around a lot more than usual: not at all 9. Thoughts that you would be better off or of hurting yourself in some way: not at all Total score: 0 Depression Screening Interpretation: Negative Depression Screening Done: Yes 96283 - PHQ-9 Billing: Yes Source: Developed by Drs. Lang Pacheco, Kelsey Lund, Filemon Grewal and colleagues, with an educational juvenal from [employer]. Thrive Questionnaire Date Thrive assessed: 12/01/24 I am a: Patient What is your living situation today?: I have a steady place to live Within the past 12 months, did the food you bought not last and you didn't have the money to get more?: Never true Within the past 12 months, did you worry whether your food would run out before you got money to buy more?: Never true Do you have trouble paying for medicines?: No Do you have trouble getting transportation to medical appointments?: No Do you have trouble paying your heating and electricity bill?: No Do you have trouble taking care of your child, family member or friend?: No Do you have trouble with day-to-day activities such as bathing, preparing meals, shopping, managing finances, etc.?: No Are you currently unemployed and looking for a job?: No Are you interested in more education?: No Please select the resources that you would like help with: None Currently or been in a relationship where the following occur: No concerns reported THRIVE Score: 0 AUDIT C Alcohol Use Questionnaire (AUDIT-C) 1. How often do you have a drink containing alcohol?: Never 3. How often do you have six or more drinks on one occasion?: Never Total Score: 0 Score Reviewed/Action Taken: Yes FLACO-7 AMB Questionnaire FLACO-7 Date FLACO - 7 assessed: 12/01/24 Feeling nervous, anxious, or on edge: 0 = Not at all Not being able to stop or control worryin = Not at all Worrying too much about different things: 0 = Not at all Trouble relaxin = Not at all Being so restless that it is hard to sit still: 0 = Not at all Becoming easily annoyed or irritable: 0 = Not at all Feeling afraid as if something awful might happen: 0 = Not at all Total FLACO-7 score (0-4 normal; 5-9 mild; 10-14 moderate; 15-21 severe): 0 Source: Developed by Drs. Lang Pacheco, Kelsey Lund, Filemon Grewal and colleagues, with an educational juvenal from [employer]. Review of Systems Const Reports body aches (diffuse), Denies chills, Reports difficulty sleeping (see HPI for details), Reports fatigue (increased), Denies fever(s) and Denies headache(s) ENT Denies dysphagia, Reports dizziness (recurrent/frequent), Denies otalgia, Denies headache(s), Reports neck pain (chronic), Denies odynophagia and Denies sore throat Card Denies chest pain, Denies irregular heart rhythm, Denies palpitations and Reports dyspnea on exertion (mild) Resp Denies chest congestion, Denies cough and Reports dyspnea on exertion (mild) GI Denies abdominal pain, Denies constipation, Denies dysphagia, Denies heartburn, Denies diarrhea, Denies nausea, Denies odynophagia and Denies vomiting Denies difficulty voiding, Denies dysuria, Denies urinary incontinence and Denies urinary urgency Musc Details: recurrent pain over the left lower back that often radiates down the back of her left lower extremity Reports abnormal gait (unsteady gait), Reports back pain (over the lower back (chronic) but has increasing pain on left side lately), Reports arthralgias (left shoulder - S/P surgery in 03/2021), Reports neck pain (chronic) and Reports stiffness (left shoulder) Skin/Breast Denies rash Neuro Reports abnormal gait (unsteady gait), Reports dizziness (recurrent/frequent), Denies headache(s) and Denies paresthesias Psych Denies anxiety and Denies depression Endo Reports fatigue (increased) and Denies palpitations Corona/Lymph Denies easy bruising Physical exam (Primary Care) Vital Signs: Last Vital Signs Pulse 89 12/01/24 15:26 BP 122/80 12/01/24 15:26 Pulse Ox 93 12/01/24 15:26 Oxygen Delivery Method Room Air 12/01/24 15:26 BMI result Body Mass Index 37.0 Tobacco/Smoking Status: Tobacco use Status Tobacco use date assessed 12/01/24 12/01/24 15:31 Patient Tobacco Use Status Never used Tobacco 12/01/24 15:31 Tobacco use type 11/30/24 12:25 e-Cigarette/Vaping Use Never Used 12/01/24 15:31 PHQ-9: PHQ-9 Score PHQ-9: Total score 0 12/01/24 16:22 Depression Screening Interpretation: Negative Thrive Assessment: Date of Thrive Assessment Date Thrive assessed 12/01/24 12/01/24 15:31 Currently or been in a relationship where the following occur: No concerns reported Const General: no acute distress and alert HENMT Ears: TM's normal bilaterally and EAC's normal Throat: Yes posterior oropharynx normal and Yes tonsils normal (no TP congestion) Neck Neck: Yes supple and No lymphadenopathy Thyroid: Thyroid normal Resp Auscultation: clear to auscultation bilaterally, no rales and no wheezes Cardio Rate: regular rate Rhythm: regular rhythm Heart sounds: no murmurs GI Palpation (GI): Soft to palpation and nontender Auscultation: normal bowel sounds General: Yes no CVA tenderness Back/Spine/Pelvis Back: no CVA tenderness Cervical Spine: cervical muscular tenderness and Cervical spine tenderness Thoracic/Lumbar Spine: paraspinal muscle tenderness bilaterally in the upper thoracic, in the mid lumbar and in the lower lumbar and on the left greater than right and lumbar spinal tenderness Skin Rashes: no rashes Extrem General: Yes no clubbing, cyanosis or edema Left upper extremity: shoulder/upper arm Details: tenderness Location: of the A- C joint and normal ROM; no swelling Coding Level of Care Code Est Pt Level 4 (97575) Diagnoses Dizziness of unknown etiology R42 Right hip pain M25.551 Lumbar spondylosis M47.816 Mild persistent asthma without complication J45.30 Asthma severity: mild Asthma persistence: persistent Asthma complication type: uncomplicated Migraine without status migrainosus, not intractable, unspecified migraine type G43.909 Migraine type: unspecified Status migrainosus presence: without status migrainosus Intractability: not intractable Fibromyalgia M79.7 Rotator cuff tear arthropathy of left shoulder M75.102; M12.812 Primary osteoarthritis of both knees M17.0 Allergic rhinitis, unspecified seasonality, unspecified trigger J30.9 Allergic rhinitis trigger: unspecified Allergic rhinitis seasonality: unspecified GERD without esophagitis K21.9 Vitamin D deficiency E55.9 Vitamin B12 deficiency E53.8 Insomnia, unspecified type G47.00 Insomnia type: unspecified Anxiety F41.9 Depression, unspecified depression type F32.9 Depression Type: unspecified Obesity (BMI 30-39.9) E66.9 Additional Codes PHQ-9 - 58873 - PHQ-9 Billing: Yes ([id number]) Assessment & Plan Assessment & Plan (1) Dizziness of unknown etiology: Code(s): R42 - Dizziness and giddiness Category: Medical Plan: Patient had head CT done at [facility] last week - head CT came back negative Will send patient for some labs CARI for further evaluation Will also refer her to physical therapy for further evaluation If PT evaluation is unrevealing, will need to consider sending her for neurology evaluation Will start her for now on a trial of Scopolamine patch to see if this will at least relieve some of her dizziness (2) Right hip pain: Code(s): M25.551 - Pain in right hip Category: Medical Plan: X-rays of the right hip done at the ER at [facility] last week came back negative If her right hip pain persists, can consider physical therapy (3) Lumbar spondylosis: Code(s): M47.816 - Spondylosis without myelopathy or radiculopathy, lumbar region Category: Medical Plan: Reinforced activity and weight-lifting restrictions Continue Methocarbamol 750 mg TID PRN and Duloxetine 30 mg QD MRI of the lumbar spine last done in 05/2021 revealed s/p instrumented fusion at the L2-L3 level with laminectomy changes, with no significant canal or foraminal compromise, stable in appearance. Stable discogenic degenerative changes at multiple levels, with stable multilevel bilateral facet arthropathy. Multilevel disc bulging and foraminal disc protrusions are again noted, similar to the previous exam with no significant central spinal canal stenosis. No significant neural foraminal stenosis. No abnormal enhancement within the limitations of the study. Repeat lumbar spine x-rays done at [facility] last year showed stable post-op changes with no acute findings She was referred to physical therapy last year because of increased pain, especially over her left lower back, with radiation of pain down the left leg but it does not look like she was seen by PT as we have not received any updated correspondence on this Repeat x-rays of the lumbar spine done in August 2024 revealed (+) chronic changes with no acute findings She was also seeing pain management previously and was going to have a trial of ROSARIO soon as mentioned at her last visit but we have not received any updates on this since We referred her back to pain management previously for her increased low back pain and she was last seen by them in August 2024 - it appears that she was scheduled for a diagnostic bilateral L3-L4 DR L5 medial branch blocks with local and fluoroscopy last month but patient did not show up for her appointment Patient claims that she was never informed of her appointment last month Have provided her with the phone number for the pain clinic next door and she is advised to call them up herself to explain to them what happened and have them schedule her for another appointment soon so they can proceed with her injection(s) (4) Asthma: Code(s): J45.909 - Unspecified asthma, uncomplicated Category: Medical Qualifiers: Asthma severity: mild Asthma persistence: persistent Asthma complication type: uncomplicated Qualified Code(s): J45.30 - Mild persistent asthma, uncomplicated Plan: Controlled Continue Flovent HFA 110 mcg 1 inhalation BID and Albuterol HFA 2 puffs 4 times a day as needed; she also has Albuterol nebulization to use as needed (5) Migraine: Code(s): G43.909 - Migraine, unspecified, not intractable, without status migrainosus Category: Medical Qualifiers: Migraine type: unspecified Status migrainosus presence: without status migrainosus Intractability: not intractable Qualified Code(s): G43.909 - Migraine, unspecified, not intractable, without status migrainosus Plan: Stable on prophylactic Tx Continue Nortriptyline 25 mg Q BID Reinforced again avoidance of all potential migraine triggers (6) Fibromyalgia: Code(s): M79.7 - Fibromyalgia Category: Medical Plan: She is encouraged again on regular exercise and physical activity to help manage her fibromyalgia symptoms Continue Pregabalin 150 mg TID, Nortriptyline 25 mg BID and Duloxetine 30 mg BID She was seen at [facility] by Dr. Darnell many years ago and she has not been back in a few years She was referred back to [facility] rheumatology for further evaluation and management - was seen by Dr. Tavarez a few months ago and she was advised to continue on her current Rx with no further recommendations; was also advised to just follow up with her PCP (7) Rotator cuff tear arthropathy of left shoulder: Comment: S/P left rotator cuff surgery in September [address] Velázquez Code(s): M75.102 - Unspecified rotator cuff tear or rupture of left shoulder, not specified as traumatic; M12.812 - Other specific arthropathies, not elsewhere classified, left shoulder Category: Medical Plan: She was seen previously by orthopedics and was recommended to continue with gentle physical therapy of her left shoulder but patient states that this did not really help much Repeat MRI of the shoulder done at [facility] on 02/26/2024 revealed (+) mild glenohumeral joint osteoarthritis with joint effusion and diffuse synovitis. The rotator cuff repair and prior biceps tenodesis appear intact and there are no evidence of recurrent tear. There is mild supraspinatus and infraspinatus muscle atrophy. S/P acromioplasty Follow up with orthopedics as scheduled (8) Primary osteoarthritis of both knees: Code(s): M17.0 - Bilateral primary osteoarthritis of knee Category: Medical Plan: Follow up with orthopedics as scheduled Has knee braces that she wears as needed for added stability to her knees and to help reduce her knee pain (9) Allergic rhinitis: Code(s): J30.9 - Allergic rhinitis, unspecified Category: Medical Qualifiers: Allergic rhinitis trigger: unspecified Allergic rhinitis seasonality: unspecified Qualified Code(s): J30.9 - Allergic rhinitis, unspecified Plan: Continue Loratadine 10 mg QD PRN (10) GERD without esophagitis: Code(s): K21.9 - Gastro-esophageal reflux disease without esophagitis Category: Medical Plan: Dietary restrictions reinforced Continue Pantoprazole 40 mg QD (11) Vitamin D deficiency: Code(s): E55.9 - Vitamin D deficiency, unspecified Category: Medical Plan: Continue Vitamin D2 47878 units once a week (12) Vitamin B12 deficiency: Code(s): E53.8 - Deficiency of other specified B group vitamins Category: Medical Plan: Continue Vitamin B12 1000 mcg twice a week - she was instructed to cut back on her dosing from daily to BIW as her serum B12 level was very high on her previous labs (13) Insomnia: Comment: was on Trazodone 150 mg in the past but has not refilled Rx since 2016 Code(s): G47.00 - Insomnia, unspecified Category: Medical Qualifiers: Insomnia type: unspecified Qualified Code(s): G47.00 - Insomnia, unspecified Plan: Sleep hygiene reinforced She was started her back on a trial of Trazodone 50 mg Q HS PRN at her last visit Have advised patient that her frequent awakening from sleep at night is likely multifactorial, including her recently increased low back pain as well as her urinary frequency and that addressing these issues should eventually lead to less awakenings and better and more restful sleep at night (14) Anxiety: Code(s): F41.9 - Anxiety disorder, unspecified Category: Medical Plan: Continue Lorazepam 0.5 mg TID PRN, Hydroxyzine 25 mg TID PRN and Buspirone 10 mg BID Follow up with psychiatry as scheduled (15) Depression: Code(s): F32.9 - Major depressive disorder, single episode, unspecified Category: Medical Qualifiers: Depression Type: unspecified Qualified Code(s): F32.9 - Major depressive disorder, single episode, unspecified Plan: Continue Budeprion SR 100 mg 2 tablets BID Follow up with psychiatry as scheduled (16) Obesity (BMI 30-39.9): Code(s): E66.9 - Obesity, unspecified Category: Medical Plan: Reinforced diet; weight loss and exercise are unrealistic given patient's multiple physical issues and limited activity tolerance Plan Follow up as scheduled next month Orders: Orders PT Evaluation and Treatment 12/01/24 R42 - Dizziness and giddiness Lipid Panel 12/25/24 E78.00 - Pure hypercholesterolemia, unspecified, R42 - Dizziness and giddiness Comprehensive Gray. Panel Fast 12/25/24 E78.00 - Pure hypercholesterolemia, unspecified, R42 - Dizziness and giddiness TSH reflex Free T4 12/25/24 E78.00 - Pure hypercholesterolemia, unspecified, R42 - Dizziness and giddiness Magnesium 12/25/24 E83.42 - Hypomagnesemia, R42 - Dizziness and giddiness Complete Blood Count Auto Diff 12/25/24 D64.9 - Anemia, unspecified, R42 - Dizziness and giddiness UA CC w/rflx Micro + Cult 12/25/24 R30.0 - Dysuria, R42 - Dizziness and giddiness Vitamin B12 and Folate 12/25/24 E53.8 - Deficiency of other specified B group vitamins, R42 - Dizziness and giddiness Vitamin D 25-OH Total 12/25/24 E55.9 - Vitamin D deficiency, unspecified, R42 - Dizziness and giddiness Erythrocyte Sedimentation Rate 12/25/24 M79.7 - Fibromyalgia, R42 - Dizziness and giddiness C Reactive Protein 12/25/24 R42 - Dizziness and giddiness Medications: New scopolamine base (Transderm-Scop) 1 patch transdermal Q3D PRN 10 ea 0RF nausea and vomiting/motion sickness
[2024-12-01 15:26] VITALS: BP 122/80; PULSE 89; O2SAT 93; BMI 37.0
--- OUTSIDE RECORDS SUMMARY | 2024-12-01 15:55 | XMS_ITS | Clinical Summary ---
Author Organization 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 Active pregabalin (LYRICA) 100 mg capsule Take 1 capsule (100 mg total) by mouth 2 (two) times a day. Active LORazepam (ATIVAN) 0.5 mg tablet Take 1 tablet (0.5 mg total) by mouth every 6 (six) hours if needed. Active cholecalcifero l (VITAMIN D-3) 125 mcg (5,000 unit) capsule Take 1 capsule (5,000 Units total) by mouth 1 (one) time per week. Active albuterol sulfate (PROAIR HFA INHL) Inhale into the lungs as needed Active divalproex (DEPAKOTE) [address] tablet Take 1 tablet (500 mg total) by mouth 2 (two) times a day. 11/08/19 25 Active pantoprazole (PROTONIX) 40 mg EC tablet Take 1 tablet (40 mg total) by mouth 1 (one) time each day before breakfast. 11/08/19 Active Ventolin HFA 90 mcg/actuation inhaler 05/03/20 025 Discontinued(Du plicate order) busPIRone (BUSPAR) 10 mg tablet 04/01/20 24 025 Discontinued(Di scontinued by another clinician) cefpodoxime (VANTIN) 200 mg tablet 10/27/19 24 025 Discontinued(St op Taking at Discharge) meloxicam (MOBIC) 15 mg tablet Take 1 tablet (15 mg total) by mouth 1 (one) time each day. Discontinued(Di scontinued by another clinician) tiZANidine (ZANAFLEX) 4 mg tablet Take 1 Tab by mouth every 6 hours as needed for Muscle spasms (muscle spasms 025 Discontinued(Di scontinued by another clinician) omeprazole (PriLOSEC) [address] capsule Take 1 capsule (20 mg total) by mouth 1 (one) time each day. 025 Discontinued(Di scontinued by another clinician) topiramate (TOPAMAX SPRINKLE) 25 mg capsule Take 1 capsule (25 mg total) by mouth 2 (two) times a day. Discontinued(Di scontinued by another clinician) nortriptyline (PAMELOR) 25 mg capsule Take 1 capsule (25 mg total) by mouth 2 (two) times a day. 025 Discontinued(Di scontinued by another clinician) bupropion HCl (BUDEPRION SR ORAL) Take by mouth. 025 Discontinued(Di scontinued by another clinician) citalopram (CeleXA) 10 mg tablet Take 1 tablet (10 mg total) by mouth 1 (one) time each day. 025 Discontinued(Di scontinued by another clinician) cephalexin (KEFLEX) 500 mg capsule Take 1 capsule (500 mg total) by mouth 2 (two) times a day for 7 days. 14 each 11/11/19 25 025 Discontinued cephalexin (KEFLEX) 500 mg capsule Take 1 capsule (500 mg total) by mouth 2 (two) times a day for 7 days. 14 each 11/11/19 25 025 Discontinued(St op Taking at Discharge) Belsomra 20 mg tablet Take 1 tablet by mouth at bedtime. Max Daily Amount: 1 tablet 10/21/19 25 025 Discontinued(St op Taking at Discharge) traZODone (DESYREL) 50 mg tablet Take 1 tablet (50 mg total) by mouth at bedtime as needed for sleep. 11/09/19 25 025 Discontinued(St op Taking at Discharge) meclizine (ANTIVERT) 25 mg tablet Take 1 tablet (25 mg total) by mouth 3 (three) times a day if needed for dizziness for up to 10 days. 30 tablet 11/14/19 25 025 Discontinued meclizine (ANTIVERT) 25 mg tablet Take 1 tablet (25 mg total) by mouth 3 (three) times a day if needed for dizziness for up to 10 days. 30 tablet 11/14/19 25 025 Discontinued(St op Taking at Discharge) cefdinir (OMNICEF) 300 mg capsule Take 1 capsule (300 mg total) by mouth 2 (two) times a day for 5 days. 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 Thumb pain, right 08/26/2017 Overview (05/18/2024): Last Assessment & Plan: 08/26/2017 - depo-medrol 20 mg injection Encounters Date Type Department Care Team Description 11/24/2024 11:03 AM EDT - 11/25/2024 3:42 PM EDT Hospital Encounter Medical Surgical Unit [address] [place] [phone] Christophe Hilton MD Neenan, Kevin P, DO Bukalo, Nermina, MD Bell, Alistair A, MD Fall, initial encounter (Primary Dx); Acute cystitis without hematuria; Dizziness Discharge Disposition: Home-Health Care [facility] 11/11/2024 12:50 PM EDT - 11/13/2024 5:06 PM EDT Hospital Encounter Medical Surgical Unit [address] [place] [phone] Man Cornelius DO Jones, Christopher, MD Santoyo-Pacheco, Omar D, MD Dizziness (Primary Dx) Discharge Disposition: Home-Health Care c 11/09/2024 6:15 PM EDT - 11/10/2024 12:29 AM EDT Emergency Emergency [address] [place] [phone] Acute cystitis without hematuria (Primary Dx); Dizziness Discharge Disposition: Home or Self Care 10/07/2024 6:14 PM EDT - 10/08/2024 1:34 AM EDT Emergency Emergency [address] [place] [phone] Viral gastroenteritis (Primary Dx) Discharge Disposition: Home or Self Care 09/08/2024 10:45 AM EST Consult Orthopedic Surgery - [place] [address] [facility] [address] [place] [phone] Tyshawn Milner DPM Tendonitis, Achilles, right (Primary Dx); Pain [...] drink = 0.6 oz pur e alcohol) Interpersonal Safety Answer Date Record ed Physical Abuse 11/24/2024 Verbal Abuse 11/24/2024 Comments Unknown Sex and Gender Information Value Date Recorded Sex Assigned at Female 05/18/2024 4:41 PM EST Legal Sex Female 5:47 AM EST Gender Identity Female 05/18/2024 4:41 PM EST Sexual Orientation Straight 05/18/2024 4: 41 PM EST Obstetrics History Last Filed Vital Signs Vital Sign Reading Time Taken Comments Blood Pressure 114/65 11/25/2024 2:30 PM EDT Pulse 76 11/25/2024 2:30 PM EDT Temperature 36.3 ??C (97.3 ??F) 11/25/2024 2:30 PM ED T Respiratory Rate 16 11/25/2024 2:30 PM EDT Oxygen Saturation 95% 11/25/2024 2:30 PM EDT Inhaled Oxygen Concentration - - Weight 102 kg (225 lb) 11/24/2024 11:10 AM EDT Height 167.6 cm (5' 6 ) 11/24/2024 11:10 AM EDT Body Mass Index 36.32 11/24/2024 11:10 AM EDT Plan of Treatment Health Maintenance Due Date [...] PCV21) 09/28/2025 09/28/2020, 02/19/2015 Falls Risk Assessment 11/25/2025 11/25/2024 DTaP,Tdap,and Td Vaccines (3 - Td or Tdap) 09/23/2026 09/23/2016, 04/15/2016 Cholesterol Screening (Lipid Panel) 11/12/2029 11/12/2024, 07/18/2015 RSV Immunization Adult Patients (1 - 1-dose [...] Procedure Name Priority Date/Time Associated Diagnosis Comments ECG ANNOTATED 11/26/2024 COMPLETE BLOOD COUNT Routine 11/25/2024 6:03 AM EDT BASIC METABOLIC PANEL Routine 11/25/2024 6:03 AM EDT VALPROIC ACID LEVEL, TOTAL Timed 11/24/2024 7:37 PM EDT MERCEDES URINE CULTURE TUBE Routine 11/24/2024 6:03 PM EDT URINALYSIS WITH REFLEX MICROSCOPIC AND CULTURE Routine 11/24/2024 6:03 PM EDT URINALYSIS WITH REFLEX MICROSCOPIC AND CULTURE Routine 11/24/2024 6:03 PM EDT CULTURE URINE Routine 11/24/2024 6:[address] HEAD WO CONTRAST STAT 11/24/2024 4 :[address] PELVIS WO CONTRAST STAT 11/24/2024 3:06 PM EDT MERCEDES URINE CULTURE TUBE STAT 11/24/2024 1:08 PM EDT URINALYSIS WITH REFLEX MICROSCOPIC AND CULTURE STAT 11/24/2024 1:08 PM EDT URINALYSIS WITH REFLEX MICROSCOPIC AND CULTURE STAT 11/24/2024 1:08 PM EDT CULTURE URINE STAT 11/24/2024 1:08 PM EDT XR HIP 2-3 VIEWS RIGHT STAT 12:41 PM EDT ECG 12-LEAD STAT 11/24/2024 11:49 AM EDT CBC WITH AUTO DIFFERENTIAL STAT 11/24/2024 11:29 AM EDT BASIC METABOLIC PANEL STAT 11/24/2024 11:29 AM EDT CBC AND DIFFERENTIAL STAT 11/24/2024 11:29 AM EDT ECG ANNOTATED 11/15/2024 MR BRAIN WO CONTRAST Routine 11/12/2024 4:40 PM EDT CBC WITH AUTO DIFFERENTIAL Routine 11/12/2024 6:15 AM EDT LIPID PANEL WITH REFLEX TO DIRECT LDL Routine 11/12/2024 6:15 AM EDT MAGNESIUM Routine 11/12/2024 6:15 AM EDT CBC AND DIFFERENTIAL Routine 11/12/2024 6:15 AM EDT BASIC METABOLIC PANEL Routine 11/12/2024 6:15 AM EDT VALPROIC ACID LEVEL, TOTAL Timed 11/11/2024 9:[address] ANGIO HEAD/NECK WO AND/OR W CONTRAST STAT 11/11/2024 4:39 PM EDT URINALYSIS WITH REFLEX MICROSCOPIC STAT 11/11/2024 3:03 PM EDT URINALYSIS WITH REFLEX MICROSCOPIC STAT 11/11/2024 3:03 PM EDT POCT GLUCOSE BLOOD Routine 11/11/2024 1: 02 PM EDT ECG 12-LEAD STAT 11/11/2024 12:56 PM EDT HEMOGLOBIN A1C Add-On 11/11/2024 12:10 PM EDT CBC WITH AUTO DIFFERENTIAL STAT 11/11/2024 12:10 PM EDT MAGNESIUM STAT 11/11/2024 12:10 PM EDT BASIC METABOLIC PANEL STAT 11/11/2024 12:10 PM EDT CBC AND DIFFERENTIAL STAT 11/11/2024 12:10 PM EDT MERCEDES URINE CULTURE TUBE Routine 11/11/2024 12:00 AM EDT EXTRA TUBES Routine 11/11/2024 12:00 AM EDT ECG ANNOTATED 11/10/2024 MERCEDES URINE CULTURE TUBE STAT 11/09/2024 10:14 PM EDT URINALYSIS WITH REFLEX MICROSCOPIC AND CULTURE STAT 11/09/2024 10:14 PM EDT URINALYSIS WITH REFLEX MICROSCOPIC AND CULTURE STAT 11/09/2024 10:14 PM EDT CULTURE URINE STAT 11/09/2024 10:14 PM EDT TROPONIN I HIGH SENSITIVITY STAT 11/09/2024 8:26 PM EDT MAGNESIUM STAT 11/09/2024 8:26 PM EDT BASIC METABOLIC PANEL STAT 11/09/2024 8:26 PM EDT POCT GLUCOSE BLOOD Routine 11/09/2024 7: 21 PM EDT CBC WITH AUTO DIFFERENTIAL STAT 11/09/2024 6:59 PM EDT TROPONIN I HIGH SENSITIVITY STAT 11/09/2024 6:59 PM EDT CBC AND DIFFERENTIAL STAT 11/09/2024 6:59 PM EDT ECG 12-LEAD STAT 11/09/2024 6:00 PM EDT MERCEDES URINE CULTURE TUBE STAT [...] screening mammogram for malignant neoplasm of breast HEPATITIS C SCREENING Routine 07/18/2015 from Last 3 Months or Most Recently Relevant to Health Maintenance Results * ECG-Annotated (11/26/2024) Only the most recent of3 resultswithin the time period is included. us Provider Onbase MD ECG ORDERABLES Final Result * (ABNORMAL) Complete blood count (11/25/2024 6:03 AM EDT) WBC 5.7 4.8 - 10.8 K/mcL LAB [facility] RBC 4.60 3.80 - 4.80 M/mcL LAB HEMETOLOGY METHOD 11/25/2024 7:10 AM [facility] Hemoglobin 13.2 11.5 - 16.0 g/dL LAB HEMETOLOGY METHOD 11/25/2024 7:10 AM [facility] Hematocrit 42.1 35.0 - 47.0 % LAB HEMETOLOGY METHOD 11/25/2024 7:10 AM [facility] MCV 91.1 79.0 - 98.0 FL LAB HEMETOLOGY METHOD 11/25/2024 7:10 AM [facility] MCH 28.6 27.0 - 32.0 pcg LAB HEMETOLOGY METHOD 11/25/2024 7:10 AM [facility] MCHC 31.4(L) 32.0 - 37.0 g/dL LAB HEMETOLOGY METHOD 11/25/2024 7:10 AM [facility] RDW 14.6 11.0 - 15.0 % LAB HEMETOLOGY METHOD 11/25/2024 7:10 AM EDT [facility] Platelets 190 130 - 400 K/mcL LAB HEMETOLOGY METHOD 11/25/2024 7:10 AM EDT [facility] MPV 12.2(H) 7.0 - 11.0 FL LAB HEMETOLOGY METHOD 11/25/2024 7:10 AM EDT [facility] NRBC 0.0 <1.0 % LAB HEMETOLOGY METHOD 11/25/2024 7:10 AM EDT [facility] NRBC Absolute 0.00 <0.10 K/mcL [facility] 11/25/2024 7:10 AM EDT [facility] Blood Venous blood specimen / Unknown Venipuncture / Unknown 11/25/2024 6:03 AM EDT 11/25/2024 6:49 AM EDT us Cindy Perez MD LAB BLOOD ORDERABLES Final Res ult [facility] [address] [place] [address], [place] [phone] * (ABNORMAL) Basic metabolic panel (11/25/2024 6:03 AM EDT) Only the most recent of5 resultswithin the time period is included. Sodium 139 133 - 145 mmol/L LAB CHEMISTRY METHOD 11/25/2024 7:26 AM EDT [facility] Potassium 4.2 3.5 - 5.5 mmol/L LAB CHEMISTRY METHOD 11/25/2024 7:26 AM EDT [facility] Chloride 108 96 - 110 mmol/L LAB CHEMISTRY METHOD 11/25/2024 7:26 AM EDT [facility] CO2 27 21 - 32 mmol/L LAB CHEMISTRY METHOD 11/25/2024 7:26 AM EDT [facility] Anion Gap 4 3 - 11 LAB CHEMISTRY METHOD 11/25/2024 7:26 AM [facility] Glucose 172(H) 70 - 100 mg/dL LAB CHEMISTRY METHOD 11/25/2024 7:26 AM [facility] BUN 14 5 - 25 mg/dL LAB CHEMISTRY METHOD 11/25/2024 7:26 AM [facility] Creatinine 0.91 0.50 - 1.10 mg/dL LAB CHEMISTRY METHOD 11/25/2024 7:26 AM [facility] eGFR 69 >=60 mL/min/1. 73m2 LAB CHEMISTRY METHOD 11/25/2024 7:26 AM [facility] Comment:Calculation based on the Chronic Kidney Disease Epidemiology Collaboration (CKD-EPI) equation refit without adjustment for race. BUN/Creatinine Ratio 15.4 LAB CHEMISTRY METHOD 11/25/2024 7:26 AM [facility] Calcium 8.5 8.5 - 10.5 mg/dL LAB CHEMISTRY METHOD 11/25/2024 7:26 AM [facility] Blood Venous blood specimen / Unknown Venipuncture / Unknown 11/25/2024 6:03 AM EDT 11/25/2024 6:49 AM EDT us Cindy Perez MD LAB BLOOD ORDERABLES Final Res ult [facility] [address] [place] [address], * (ABNORMAL) Valproic acid level, total (11/24/2024 7:37 PM EDT) Only the most recent of2 resultswithin the time period is included. Valproic Acid, Total <3(L) 50 - 100 mcg/mL LAB CHEMISTRY METHOD [facility]24[facility]2024 [facility]30 [facility] Blood Venous blood specimen / Unknown Venipuncture / Unknown 11/24/2024 7:37 PM EDT 11/24/2024 8:01 PM EDT Lilli GREENWOOD LAB BLOOD ORDERABLES Final Result [facility] [address] [place] [address], [place] [phone] * (ABNORMAL) Urinalysis with reflex microscopic and culture (11/24/2024 6:03 PM EDT) Only the most recent of4 resultswithin the time period is included. Specific [place] Urine 1.021 1.003 - 1.030 LAB URINALYSIS - AUTOMATED METHOD 11/24/2024 6:33 PM [facility] pH, Urine 5.5 5.0 - 8.0 pH LAB URINALYSIS - AUTOMATED METHOD 11/24/2024 6:33 PM [facility] Leukocytes, Urine Trace(A) Negative LAB URINALYSIS - AUTOMATED METHOD 11/24/2024 6:33 PM [facility] Nitrite, Urine Positive(A) Negative LAB URINALYSIS - AUTOMATED METHOD 11/24/2024 6:33 PM [facility] Protein, Urine Negative <=Trace mg/dL LAB URINALYSIS - AUTOMATED METHOD 11/24/2024 6:33 PM [facility] Glucose, Urine Negative Negative mg/dL LAB URINALYSIS - AUTOMATED METHOD 11/24/2024 6:33 PM [facility] Ketones, Urine Negative Negative mg/dL LAB URINALYSIS - AUTOMATED METHOD 11/24/2024 6:33 PM [facility] Urobilinogen , Urine 0.2 0.2 - 1.0 mg/dL LAB URINALYSIS - AUTOMATED METHOD 11/24/2024 6:33 PM [facility] Bilirubin, Urine Negative Negative LAB URINALYSIS - AUTOMATED METHOD 11/24/2024 6:33 PM EDT [facility] Blood, Urine Trace(A) Negative LAB URINALYSIS - AUTOMATED METHOD 11/24/2024 6:33 PM EDT [facility] RBC, Urine 2.6 0 - 4 /HPF LAB URINALYSIS - AUTOMATED METHOD 11/24/2024 6:33 PM EDT [facility] WBC, Urine 7.6(H) 0 - 4 /HPF LAB URINALYSIS - AUTOMATED METHOD 11/24/2024 6:33 PM EDT [facility] Squamous Epithelial, Urine 36 0 - 60 /LPF LAB URINALYSIS - AUTOMATED METHOD 11/24/2024 6:33 PM EDT [facility] Bacteria, Urine Many(A) Negative /HPF LAB URINALYSIS - AUTOMATED METHOD 11/24/2024 6:33 PM EDT [facility] Hyaline Casts, Urine 4.4(H) 0 - 3 /LPF LAB URINALYSIS - AUTOMATED METHOD 11/24/2024 6:33 PM EDT [facility] Urine Urinary bladder structure / Unknown Non-blood Collection / Unknown 11/24/2024 6:03 PM EDT 11/24/2024 6:16 PM EDT L[facility] GREENWOOD LAB URINE ORDERABLES Final Result [facility] [address] [place] [address], * Mercedes urine culture tube (11/24/2024 6:03 PM EDT) Only the most recent of5 resultswithin the time period is included. Extra Tube Hold for add-ons. 11/24/2024 8:01 PM EDT [facility] Comment:Auto resulted. Urine Urinary bladder structure / Unknown Non-blood Collection / Unknown 11/24/2024 6:03 PM EDT 11/24/2024 6:16 PM EDT L[facility] GRE[facility] LAB URINE ORDERABLES Final Result [facility] [address] [place] [address], [place] [phone] * (ABNORMAL) Culture urine (11/24/2024 6:03 PM EDT) Only the most recent of4 resultswithin the time period is included. Culture, Urine 50,000-100,000 CFU/mL Escherichia coli(A) SCOTT 11/27/2024 9:48 AM EDT [facility] Comment: The organism value for this result has been updated. These results have been appended to the previously preliminary verified report. Urine Urinary bladder structure / Unknown Non-blood Collection / Unknown 11/24/2024 6:03 PM EDT 11/24/2024 6:33 PM EDT Narrative Organism Antibiotic Method Susceptibility Escherichia coli Amoxicillin/Clavulanate SCOTT <=2 ug/ml: Susceptible Escherichia coli Ampicillin/Sulbactam SCOTT <=2 ug/ml: Susceptible Escherichia coli Piperacillin/Tazobactam SCOTT <=4 ug/ml: Susceptible Escherichia coli Cefazolin (Urine) SCOTT <=1 ug/ml: Susceptible Escherichia coli Cefoxitin SCOTT <=4 ug/ml: Susceptible Escherichia coli Ceftazidime SCOTT <=0.5 ug/ml: Susceptible Escherichia coli Ceftriaxone SCOTT <=0.25 ug/ml: Susceptible Escherichia coli Cefepime SCOTT <=0.12 ug/ml: Susceptible Escherichia coli Meropenem SCOTT <=0.25 ug/ml: Susceptible Escherichia coli Amikacin SCOTT <=1 ug/ml: Susceptible Escherichia coli Gentamicin SCOTT <=1 ug/ml: Susceptible Escherichia coli Ciprofloxacin SCOTT 0.25 ug/ml: Susceptible Escherichia coli Levofloxacin SCOTT 1 ug/ml: Intermediate Escherichia coli Nitrofurantoin SCOTT <=16 ug/ml: Susceptible Escherichia coli Trimethoprim/Sulfamethoxazole SCOTT <=20 ug/ml: Susceptible L[facility] GREEN[facility] LAB MICROBIOLOGY - GENERAL ORDERABLES Final Result [facility] [address] [place] [address], [place] [phone] * CT Head wo Contrast (11/24/2024 4:03 PM EDT) Anatomical Region Laterality Modality Head and Neck Computed Tomogra phy 11/24/2024 4:12 PM EDT Impressions 11/24/2024 4:17 PM EDT NO ACUTE INTRACRANIAL ABNORMALITY. -------- FINAL REPORT -------- Dictated By: Jake Chambers Dictated Date: 11/24/2024 16:12 ET Assigned Physician: Jake Chambers Reviewed and Electronically Signed By: Jake Chambers Signed Date: 11/24/2024 16:17 ET Workstation ID: [id number] Transcribed By: Self Edit Transcribed Date: 11/24/2024 16:12 ET Narrative 11/24/2024 4:17 PM EDT PROCEDURE: HEAD CT INDICATION: Dizziness, non-specific TECHNIQUE: CT of the head without intravenous contrast. Multiplanar reformats. The examination was performed utilizing dose reduction techniques. Total DLP 809 COMPARISON: ??11/18/2023 FINDINGS: ?? No acute territorial infarct, mass effect, or intracranial hemorrhage. Mild scattered periventricular and subcortical white matter hypodensities are most likely related to chronic small vessel ischemic change. Ventriculomegaly with marked cerebral and cerebellar volume loss. ??Normal pressure hydrocephalus is not entirely excluded but felt less likely as the temporal horns are normal caliber. Visualized paranasal sinuses are clear. Mastoid air cells are clear. No calvarial fracture. Procedure Note Jake Chambers MD - 11/24/2024 PROCEDURE: HEAD CT INDICATION: Dizziness, non-specific TECHNIQUE: CT of the head without intravenous contrast. Multiplanarreformats. The examination was performed utilizing dose reductiontechniques. Total DLP 809 COMPARISON: 11/18/2023 FINDINGS: No acute territorial infarct, mass effect, or intracranial hemorrhage. Mild scattered periventricular and subcortical white matter hypodensitiesare most likely related to chronic small vessel ischemic change. Ventriculomegaly with marked cerebral and cerebellar volume loss. Normalpressure hydrocephalus is not entirely excluded but felt less likely asthe temporal horns are normal caliber. Visualized paranasal sinuses are clear. Mastoid air cells are clear. No calvarial fracture. IMPRESSION: NO ACUTE INTRACRANIAL ABNORMALITY. -------- FINAL REPORT -------- Dictated By: Jake Chambers Dictated Date: 11/24/2024 16:12 ET Assigned Physician: Jake Chambers Reviewed and Electronically Signed By: Jake Chambers Signed Date: 11/24/2024 16:17 ET Workstation ID: [id number] Transcribed By: Self Edit Transcribed Date: 11/24/2024 16:12 ET Christophe Hilton MD IMG CT PROCEDURES Final Result * CT Pelvis wo Contrast (11/24/2024 3:06 PM EDT) Anatomical Region Laterality Modality Body, Pelvis Computed Tomogra phy 11/24/2024 3:30 PM EDT Impressions 11/24/2024 3:37 PM EDT Impression: No acute fracture. -------- FINAL REPORT -------- Dictated By: Jake Chambers Dictated Date: 11/24/2024 15:30 ET Assigned Physician: Jake Chambers Reviewed and Electronically Signed By: Jake Chambers Signed Date: 11/24/2024 15:37 ET Workstation ID: [id number] Transcribed By: Self Edit Transcribed Date: 11/24/2024 15:30 ET Narrative 11/24/2024 3:37 PM EDT History: Pelvic fracture Technique: Volumetric imaging through the pelvis without IV contrast obtained in a ??[employer] speed VCT scanner. Dose reduction techniques utilized including automated exposure control (mA and kVp adjusted according to patient's size). Iterative reconstruction techniques utilized. DLP: 1095 mGy-cm. Axial, coronal and sagittal images presented for review. Findings: Diverticulosis without evidence for acute diverticulitis. ??Thickening of the base of the cecum/appendix. ??Neoplasm in this location is not entirely excluded. ??Status post hysterectomy. ??Bladder is unremarkable. ??No pelvic mass. ??Mild degenerative changes. ??No acute osseous abnormality. Procedure Note Jake Chambers MD - 11/24/2024 History: Pelvic fracture Technique: Volumetric imaging through the pelvis without IV contrastobtained in a Hum light speed VCT scanner. Dose reduction techniquesutilized including automated exposure control (mA and kVp adjustedaccording to patient's size). Iterative reconstruction techniquesutilized. DLP: 1095 mGy-cm. Axial, coronal and sagittal images presentedfor review. Findings: Diverticulosis without evidence for acute diverticulitis.Thickening of the base of the cecum/appendix. Neoplasm in this locationis not entirely excluded. Status post hysterectomy. Bladder isunremarkable. No pelvic mass. Mild degenerative changes. No acuteosseous abnormality. IMPRESSION: Impression: No acute fracture. 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 ??No acute fracture. ??Normal alignment. -------- FINAL REPORT -------- Dictated By: Jake Chambers Dictated Date: 11/24/2024 12:47 ET Assigned Physician: Jake Chambers Reviewed and Electronically Signed By: Jake Chambers Signed Date: 11/24/2024 12:48 ET Workstation ID: [id number] Transcribed By: Self Edit Transcribed Date: 11/24/2024 12:47 ET Narrative 11/24/2024 12:48 PM EDT XR HIP 2-3 VIEWS RIGHT INDICATION: pain TECHNIQUE: XR HIP 2-3 VIEWS RIGHT COMPARISON: No priors available. Procedure Note Jake Chambers MD - 11/24/2024 XR HIP 2-3 VIEWS RIGHT INDICATION: pain TECHNIQUE: XR HIP 2-3 VIEWS RIGHT COMPARISON: No priors available. IMPRESSION: FINDINGS/IMPRESSION: Degenerative changes of both hips and lumbar spinewith posterior lumbar fusion hardware noted. No acute fracture. Normalalignment. -------- FINAL REPORT -------- Dictated By: Jake Chambers Dictated Date: 11/24/2024 12:47 ET Assigned Physician: Jake Chambers Reviewed and Electronically Signed By: Jake Chambers Signed Date: 11/24/2024 12:48 ET Workstation ID: [id number] Transcribed By: Self Edit Transcribed Date: 11/24/2024 12:47 ET Christophe Hilton MD IMG XR PROCEDURES Final Result * ECG 12 lead (11/24/2024 11:49 AM EDT) Only the most recent of3 resultswithin the time period is included. Ventricular Rate ECG 76 BPM GEMUSE Atrial Rate 76 BPM GEMUSE P-R Interval 194 ms GEMUSE QRS Duration 82 ms GEMUSE Q-T Interval 398 ms GEMUSE QTc 447 ms GEMUSE P Wave [place] 44 degrees GEMUSE R [place] -9 degrees GEMUSE T [place] 28 degrees GEMUSE ECG Interpretation Normal sinus rhythm with sinus arrhythmia Normal ECG When compared with ECG of 11-NOV-2024 12:56, Nonspecific T wave abnormality no longer evident in Anterolateral leads Confirmed by AAYUSH URIBE ([id number]) on 11/24/2024 6:04:19 PM GEMUSE 11/24/2024 11:4 9 AM EDT 11/24/2024 6:04 PM EDT us Christophe Hilton MD ECG ORDERABLES Final Result GEMUSE * (ABNORMAL) CBC auto differential (11/24/2024 11:29 AM EDT) Only the most recent of5 resultswithin the time period is included. [facility] Signature WBC 5.0 4.8 - 10.8 K/mcL LAB HEMETOLOGY METHOD 11/24/2024 12:48 PM EDT [facility] RBC 4.90(H) 3.80 - 4.80 M/mcL LAB HEMETOLOGY METHOD 11/24/2024 12:48 PM EDT [facility] Hemoglobin 14.0 11.5 - 16.0 g/dL LAB HEMETOLOGY METHOD [facility]24 [facility] Hematocrit 43.8 35.0 - 47.0 % LAB HEMETOLOGY METHOD 11/24/2024 12:48 PM [facility] MCV 90.3 79.0 - 98.0 FL LAB HEMETOLOGY METHOD 11/24/2024 12:48 PM [facility] MCH 28.9 27.0 - 32.0 pcg LAB HEMETOLOGY METHOD 11/24/2024 12:48 PM [facility] MCHC 32.0 32.0 - 37.0 g/dL LAB HEMETOLOGY METHOD 11/24/2024 12:48 PM [facility] RDW 14.5 11.0 - 15.0 % LAB HEMETOLOGY METHOD 11/24/2024 12:48 PM [facility] Platelets 205 130 - 400 K/mcL LAB HEMETOLOGY METHOD 11/24/2024 12:48 PM [facility] MPV 12.3(H) 7.0 - 11.0 FL LAB HEMETOLOGY METHOD 11/24/2024 12:48 [facility] NRBC 0.0 <1.0 % LAB HEMETOLOGY METHOD 11/24/2024 12:48 PM EDT [facility] NRBC Absolute 0.00 <0.10 K/mcL LAB HEMETOLOGY METHOD 11/24/2024 12:48 PM EDT [facility] Neutrophils Relative 30.5 % LAB HEMETOLOGY METHOD 11/24/2024 12:48 PM [facility] Lymphocytes Relative 55.5 % LAB HEMETOLOGY METHOD 11/24/2024 12:48 PM [facility] Monocytes Relative 10.6 % LAB HEMETOLOGY METHOD 11/24/2024 12:48 PM [facility] Eosinophils Relative 2.6 % LAB HEMETOLOGY METHOD 11/24/2024 12:48 PM [facility] Basophils Relative 0.6 % LAB HEMETOLOGY METHOD 11/24/2024 12:48 PM [facility] Immature Granulocytes Relative 0.2 % LAB HEMETOLOGY METHOD 11/24/2024 12:48 PM [facility] Neutrophils Absolute 1.52 1.50 - 7.00 K/mcL LAB HEMETOLOGY METHOD 11/24/2024 12:48 PM [facility] Lymphocytes Absolute 2.77 1.00 - 5.00 K/mcL LAB HEMETOLOGY METHOD 11/24/2024 12:48 PM [facility] Monocytes Absolute 0.53 0.20 - 1.00 K/mcL LAB HEMETOLOGY METHOD 11/24/2024 12:48 PM T [facility] Eosinophils Absolute 0.13 0.00 - 0.50 K/mcL LAB HEMETOLOGY METHOD 11/24/2024 12:48 PM [facility] Basophils Absolute 0.03 0.00 - 0.20 K/mcL LAB HEMETOLOGY METHOD 11/24/2024 12:48 PM [facility] Immature Granulocytes Absolute 0.01 0.00 - 0.03 K/mcL LAB HEMETOLOGY METHOD 11/24/2024 12:48 PM EDT [facility] Blood Venous blood specimen / Unknown Venipuncture / Unknown 11/24/2024 11:29 AM EDT 11/24/2024 12:31 PM EDT us Christophe Hilton MD LAB BLOOD ORDERABLES Final Resu lt [facility] [address] [place] [address], [place] [phone] * MR Brain wo Contrast (11/12/2024 4:40 PM EDT) Anatomical Region Laterality Modality Head and Neck Magnetic Resonan ce 11/12/2024 4:57 PM EDT Impressions 11/12/2024 5:10 PM EDT MARKED SYMMETRIC CEREBRAL ATROPHY. ??NO ACUTE INFARCT. -------- FINAL REPORT -------- Dictated By: Jake Chambers Dictated Date: 11/12/2024 16:57 ET Assigned Physician: Jake Chambers Reviewed and Electronically Signed By: Jake Chambers Signed Date: 11/12/2024 17:10 ET Workstation ID: [id number] Transcribed By: Self Edit Transcribed Date: 11/12/2024 16:57 ET Narrative 11/12/2024 5:10 PM EDT PROCEDURE: MR BRAIN WO CONTRAST INDICATION: dizziness persistent TECHNIQUE: ??Axial diffusion weighted, as well as T1 and T2-weighted multiplanar imaging without intravenous contrast. COMPARISON: ??No priors available. FINDINGS: ??There is symmetric diffuse cerebral volume loss with commensurate enlargement of the ventricles and sulci. ??Diffusion-weighted images demonstrate no evidence for an acute infarct. ??There is no mass effect or midline shift. ??There are few scattered periventricular hyperintensities compatible with chronic microvascular ischemic changes. Unremarkable orbits, orbital soft tissues, mastoid air cells. No acute calvarial abnormality. Unremarkable paranasal sinuses. ??Midline structures including the midbrain, visualized cervical cord and spine, pharynx, tongue base, epiglottis unremarkable. Visualized airway clear. Procedure Note Jake Chambers MD - 11/12/2024 PROCEDURE: MR BRAIN WO CONTRAST INDICATION: dizziness persistent TECHNIQUE: Axial diffusion weighted, as well as T1 and T2-weightedmultiplanar imaging without intravenous contrast. COMPARISON: No priors available. FINDINGS: There is symmetric diffuse cerebral volume loss withcommensurate enlargement of the ventricles and sulci. Diffusion-weightedimages demonstrate no evidence for an acute infarct. There is no masseffect or midline shift. There are few scattered periventricularhyperintensities compatible with chronic microvascular ischemic changes. Unremarkable orbits, orbital soft tissues, mastoid air cells. No acutecalvarial abnormality. Unremarkable paranasal sinuses. Midline structuresincluding the midbrain, visualized cervical cord and spine, pharynx,tongue base, epiglottis unremarkable. Visualized airway clear. IMPRESSION: MARKED SYMMETRIC CEREBRAL ATROPHY. NO ACUTE INFARCT. -------- FINAL REPORT -------- Dictated By: Jake Chambers Dictated Date: 11/12/2024 16:57 ET Assigned Physician: Jake Chambers Reviewed and Electronically Signed By: Jake Chambers Signed Date: 11/12/2024 17:10 ET Workstation ID: [id number] Transcribed By: Self Edit Transcribed Date: 11/12/2024 16:57 ET Jojo GREENWOOD IM MRI PROCEDURES Final Resu lt * (ABNORMAL) Lipid panel with reflex to direct LDL (11/12/2024 6:15 AM EDT) Cholesterol 203(H) 0 - 200 mg/dL LAB CHEMISTRY METHOD 11/12/2024 8:03 AM [facility] Triglycerides 80 0 - 150 mg/dL LAB CHEMISTRY METHOD 11/12/2024 8:03 AM EDT [facility] HDL 71 >=40 mg/dL LAB CHEMISTRY METHOD 11/12/2024 8:03 AM [facility] LDL Calculated 116(H) 0 - 100 mg/dL LAB CHEMISTRY METHOD 11/12/2024 8:03 AM [facility] VLDL Cholesterol Randy 16 mg/dL LAB CHEMISTRY METHOD 11/12/2024 8:03 AM EDT [facility] Non HDL Chol. (LDL+VLDL) 132 <145 mg/dL LAB CHEMISTRY METHOD 11/12/2024 8:03 AM EDT [facility] Chol/HDL Ratio 2.9 0.0 - 4.4 LAB CHEMISTRY METHOD 11/12/2024 8:03 AM EDT [facility] Blood Venous blood specimen / Unknown Venipuncture / Unknown 11/12/2024 6:15 AM EDT 11/12/2024 6:58 AM EDT Jojo GREENWOOD LAB BLOOD ORDERABLES Final Re sult Performing Organization Address [facility] de Phone Number [facility] [address] [place] [address], [place] [phone] * Magnesium (11/12/2024 6:15 AM EDT) Only the most recent of4 resultswithin the time period is included. Magnesium 1.9 1.9 - 2.6 mg/dL LAB CHEMISTRY METHOD 11/12/2024 8:03 AM EDT [facility] Blood Venous blood specimen / Unknown Venipuncture / Unknown 11/12/2024 6:15 AM EDT 11/12/2024 6:58 AM EDT Jojo GREENWOOD LAB BLOOD ORDERABLES Final Re sult Performing Organization Address [facility] Co de Phone Number [facility] [address] [place] [address], [place] [phone] * CT Angio Head/Neck wo and/or w Contrast (11/11/2024 4:39 PM EDT) Anatomical Region Laterality Modality Head and Neck Computed Tomogra phy 11/11/2024 4:51 PM EDT Impressions 11/11/2024 4:54 PM EDT NO ACUTE ABNORMALITY. -------- FINAL REPORT -------- Dictated By: Jake Chambers Dictated Date: 11/11/2024 16:51 ET Assigned Physician: Jake Chambers Reviewed and Electronically Signed By: Jake Chambers Signed Date: 11/11/2024 16:54 ET Workstation ID: [id number] Transcribed By: Self Edit Transcribed Date: 11/11/2024 16:51 ET Narrative 11/11/2024 4:54 PM EDT PROCEDURE: CTA HEAD AND NECK INDICATION: Neuro deficit, acute, stroke suspected TECHNIQUE: CTA of the head and neck with intravenous contrast. Multiplanar reformats. The examination was performed utilizing dose reduction techniques.3-D or MIP images were produced with postprocessing on an independent computer workstation. 90cc Omnipaque 370 injected. Scan was analyzed using [employer] based computer aided triage software. Total DLP: 3710 mGy/cm COMPARISON: ??No priors available. FINDINGS: ?? Noncon Brain: Cerebral hemispheres are symmetric without evidence for mass, hemorrhage or CT evidence for acute territorial infarct. ??Frontal lobe atrophy with prominence of the frontal horns of the lateral ventricles. 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 ??Bovine configuration of the arch with direct origin of the left vertebral artery. Common carotid and internal carotid arteries are patent in the neck. ??Cervical vertebral arteries are patent. Hypoventilatory changes in the lungs. Enhancing left thyroid nodule should be further evaluated with ultrasound and sampling if indicated. CTA Head: Intracranial portions of the internal carotid arteries are patent. Hypoplastic right ELENA. ??Anterior circulation provided by the left ELENA. Vertebrobasilar system is patent. Proximal account services coordinator are patent. Major dural venous sinuses opacify normally with contrast. Extracranial structures are unremarkable. ??Degenerative changes in the bones. Procedure Note Jake Chambers MD - 11/11/2024 PROCEDURE: CTA HEAD AND NECK INDICATION: Neuro deficit, acute, stroke suspected TECHNIQUE: CTA of the head and neck with intravenous contrast. Multiplanarreformats. The examination was performed utilizing dose reductiontechniques.3-D or MIP images were produced with postprocessing on anindependent computer workstation. 90cc Omnipaque 370 injected. Scan wasanalyzed using [email or web address] AI based computer aided triage software. Total DLP: 3710 mGy/cm COMPARISON: No priors available. FINDINGS: Noncon Brain: Cerebral hemispheres are symmetric without evidence for mass, hemorrhageor CT evidence for acute territorial infarct. Frontal lobe atrophy withprominence of the frontal horns of the lateral ventricles. 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 Bovine configuration of the arch withdirect origin of the left vertebral artery. Common carotid and internalcarotid arteries are patent in the neck. Cervical vertebral arteries arepatent. Hypoventilatory changes in the lungs. Enhancing left thyroid nodule shouldbe further evaluated with ultrasound and sampling if indicated. CTA Head: Intracranial portions of the internal carotid arteries are patent. Hypoplastic right ELENA. Anterior circulation provided by the left ELENA. Vertebrobasilar system is patent. Proximal account services coordinator are patent. Major dural venous sinuses opacify normally with contrast. Extracranial structures are unremarkable. Degenerative changes in thebones. IMPRESSION: NO ACUTE ABNORMALITY. -------- FINAL REPORT -------- Dictated By: Jake Chambers Dictated Date: 11/11/2024 16:51 ET Assigned Physician: Jake Chambers Reviewed and Electronically Signed By: Jake Chamebrs Signed Date: 11/11/2024 16:54 ET Workstation ID: [id number] Transcribed By: Self Edit Transcribed Date: 11/11/2024 16:51 ET Man Cornelius DO IMG CT PROCEDURES Final Result * (ABNORMAL) Urinalysis with reflex microscopic (11/11/2024 3:03 PM EDT) Specific [place] Urine 1.019 1.003 - 1.030 LAB URINALYSIS - AUTOMATED METHOD 11/11/2024 3:44 PM EDT [facility] pH, Urine 6.0 5.0 - 8.0 pH LAB URINALYSIS - AUTOMATED METHOD 11/11/2024 3:44 PM EDT [facility] Leukocytes, Urine Trace(A) Negative LAB URINALYSIS - AUTOMATED METHOD 11/11/2024 3:44 PM EDT [facility] Nitrite, Urine Negative Negative LAB URINALYSIS - AUTOMATED METHOD 11/11/2024 3:44 PM [facility] Protein, Urine Negative <=Trace mg/dL LAB URINALYSIS - AUTOMATED METHOD 11/11/2024 3:44 PM [facility] Glucose, Urine Negative Negative mg/dL LAB URINALYSIS - AUTOMATED METHOD 11/11/2024 3:44 PM [facility] Ketones, Urine Trace(A) Negative mg/dL LAB URINALYSIS - AUTOMATED METHOD 11/11/2024 3:44 PM [facility] Urobilinogen, Urine 0.2 0.2 - 1.0 mg/dL LAB URINALYSIS - AUTOMATED METHOD 11/11/2024 3:44 PM [facility] Bilirubin, Urine Negative Negative LAB URINALYSIS - AUTOMATED METHOD 11/11/2024 3:44 PM [facility] Blood, Urine Negative Negative LAB URINALYSIS - AUTOMATED METHOD 11/11/2024 3:44 PM [facility] RBC, Urine 3.1 0 - 4 /HPF LAB URINALYSIS - AUTOMATED METHOD 11/11/2024 3:44 PM [facility] WBC, Urine 1.6 0 - 4 /HPF LAB URINALYSIS - AUTOMATED METHOD 11/11/2024 3:44 PM [facility] Squamous Epithelial, Urine 26 0 - 60 /LPF LAB URINALYSIS - AUTOMATED METHOD 11/11/2024 3:44 PM [facility] Bacteria, Urine Negative Negative /HPF LAB URINALYSIS - AUTOMATED METHOD 11/11/2024 3:44 PM [facility] Hyaline Casts, Urine 0.8 0 - 3 /LPF LAB URINALYSIS - AUTOMATED METHOD 11/11/2024 3:44 PM [facility] Urine Urine specimen obtained by clean catch procedure / Unknown Non-blood Collection / Unknown 11/11/2024 3:03 PM EDT 11/11/2024 3:26 PM EDT us Man Cornelius DO LAB URINE ORDERABLES Final Res ult Performing Organization Address [facility]/ZIP Co de Phone Number [facility] [address] [place] [address], [place] [phone] * POCT Glucose, blood (11/11/2024 1:02 PM EDT) Only the most recent of2 resultswithin the time period is included. [facility] Glucose POCT 96 70 - 100 mg/dL 11/11/2024 1:03 PM EDT [facility] Blood Capillary blood specimen / Unknown 11/11/2024 1:02 PM EDT 11/11/2024 1:04 PM EDT us Generic Provider Poct LAB POINT OF CARE TEST DOCKED DEVICE UNSOLICITED RESULTS Final Result Performing Organization Address [facility] de Phone Number [facility] [address] [place] [address], [place] [phone] * (ABNORMAL) Hemoglobin A1c (11/11/2024 12:10 PM EDT) [facility] Hemoglobin A1C 6.7(H) <6.5 % LAB CHEMISTRY METHOD 11/11/2024 10:18 PM EDT [facility] Mean Bld Glu Estim. 146 mg/dL LAB CHEMISTRY METHOD 11/11/2024 10:18 PM EDT [facility] Blood Venous blood specimen / Unknown Venipuncture / Unknown 11/11/2024 12:10 PM EDT 11/11/2024 12:17 PM EDT us Jojo GREENWOOD LAB BLOOD ORDERABLES Final Re sult Performing Organization Address [facility]/ZIP Co de Phone Number [facility] [address] [place] [address], [place] [phone] * Troponin I high sensitivity (11/09/2024 8:26 PM EDT) Only the most recent of2 resultswithin the time period is included. High Sensitivity Troponin I 6 <=54 ng/L LAB CHEMISTRY METHOD 11/09/2024 9:10 PM EDT [facility] Blood Venous blood specimen / Unknown Venipuncture / Unknown 11/09/2024 8:26 PM EDT 11/09/2024 8:33 PM EDT Narrative [facility] - 11/09/2024 9:10 PM EDT High levels of biotin in samples may falsely decrease hsTroponin values. ??Use caution when interpreting hsTroponin results in patients taking biotin who exhibit renal impairment (eGFR <60) or in patients taking more than 20 mg/day of biotin. us Mook Irizarry MD LAB BLOOD ORDERABLES Final Result [facility] [address] [place] [address], [place] [phone] * CT Abdomen Pelvis w Contrast (10/07/2024 [...] Graham MD on 10/07/2024 21:38:17 Jacques [facility] [place]EDURES Final Result * Respiratory virus [...] 7:07 PM EDT 10/07/2024 8:01 PM EDT [facility] - 10/07/2024 9:15 PM EDT Testing was performed using the [employer] Respiratory Pathogen PCR Assay. All results must [...] Onofre Rachel Menard MD LAB MICROBIOLOGY - [facility] KYLEE EVANS Final Result [facility] [address] [place] [address], * (ABNORMAL) Manual differential (10/07/2024 5:19 PM EDT) Pathologist [facility] Neutrophils % 39.0 % LAB HEMETOLOGY METHOD [...] EDT [facility] Eosinophils % 2.0 % LAB HEMETOLOGY METHOD 10/07/2024 6:37 PM EDT [facility] Basophils % 1.0 % LAB HEMETOLOGY METHOD 10/07/2024 6:37 PM EDT [facility] Neutrophils Absolute Manual 2.73 1.50 - 7.00 K/mcL LAB HEMETOLOGY METHOD 10/07/2024 6:37 PM EDT [facility] Lymphocytes Absolute 2.52 1.00 - 5.00 K/mcL LAB HEMETOLOGY METHOD 10/07/2024 6:37 PM EDT [facility] Reactive Lymph Abs Manual 0.84(H) 0.00 - 0.00 lym LAB HEMETOLOGY METHOD 10/07/2024 6:37 PM EDT [facility] Monocytes Absolute Manual 0.70 0.20 - 1.00 K/mcL LAB HEMETOLOGY METHOD 10/07/2024 6:37 PM EDT [facility] Eosinophils Absolute Manual 0.14 0.00 - 0.50 K/[facility] LAB HEMETOLOGY METHOD 10/07/2024 6:37 PM EDT [facility] Basophils Absolute Manual 0.07 0.00 - 0.20 K/[facility] LAB HEMETOLOGY METHOD 10/07/2024 6:37 PM EDT [facility] Rbc Morphology Consistent with indices Consistent with indices, Normal for [place] LAB HEMETOLOGY METHOD 10/07/2024 6:37 PM EDT [facility] Platelet Morphology - WAM See Note(A) Normal LAB HEMETOLOGY METHOD 10/07/2024 6:37 PM EDT [facility] Comment:PLT: Normal Blood Venous blood specimen / Unknown Venipuncture / Unknown 10/07/2024 5:19 PM EDT 10/07/2024 5:31 PM EDT Lilian Bakari Manuel Parks LAB BLOOD ORDERABLES Elenita l Result [facility] [address] [place] [address], [place] [phone] * Lipase (10/07/2024 5:19 PM EDT) Lipase 30 13 - 75 unit/L LAB CHEMISTRY METHOD 10/07/2024 5:56 PM EDT [facility] Blood Venous blood specimen / Unknown Venipuncture / Unknown 10/07/2024 5:19 PM EDT 10/07/2024 5:31 PM EDT [employer] [facility] LAB BLOOD ORDERABLES Elenita l Result [facility] [address] [place] [address], [place] [phone] * (ABNORMAL) Comprehensive metabolic panel (10/07/2024 5:19 [...] 10/07/2024 6:14 PM [facility] eGFR 57(L) >=60 mL/min/1. 73m2 LAB CHEMISTRY METHOD 10/07/2024 6:14 PM [facility] Comment:Calculation based on the??Chronic Kidney Disease Epidemiology Collaboration (CKD-EPI) equation refit??without adjustment for race. BUN/Creatinine Ratio 27.1 LAB CHEMISTRY METHOD 10/07/2024 6:14 PM [facility] Calcium 9.4 8.5 - 10.5 mg/dL LAB CHEMISTRY METHOD 10/07/2024 6:14 PM [facility] AST (SGOT) 22 10 - 42 unit/L LAB CHEMISTRY METHOD 10/07/2024 6:14 PM EDT [facility] ALT (SGPT) 23 10 - 60 unit/L LAB CHEMISTRY METHOD 10/07/2024 6:14 PM EDT [facility] Alkaline Phosphatase 77 42 - 121 unit/L LAB CHEMISTRY METHOD 10/07/2024 6:14 PM EDT [facility] Total Protein 8.0 6.0 - 8.0 g/dL LAB CHEMISTRY METHOD 10/07/2024 6:14 PM EDT [facility] Albumin 3.8 3.2 - 5.0 g/dL LAB CHEMISTRY METHOD 10/07/2024 6:14 PM [facility] Total Bilirubin 0.5 0.0 - 1.4 mg/dL LAB CHEMISTRY METHOD 10/07[facility]2024 6[facility] Blood Venous blood specimen / Unknown Venipuncture / Unknown 10/07/2024 5:19 PM EDT 10/07/2024 5:31 PM EDT us Lilian Bakari Parks DO LAB BLOOD ORDERABLES Elenita l Result [facility] [address] [place] [address], * SCR MAMMO BI INCL CAD (09/02/2017 [...] % Breast cancer risk category Low (<15%) kAil Hernandez MD IMG XR PROCEDURES Final Result * Hepatitis C Screening (07/18/2015) Hepatitis C Screening Abstracted Historical Provider HEALTH MAINTENANCE Final Result from Last 3 Months or Most Recently Relevant to Health Maintenance Insurance [place] [address] MEDICARE Member Subscriber Plan / Payer (Ef fective 2022-Present) Name:SABRINA MCQUEEN Relation to Subscriber:Self Name:Sabrina Mcqueen Payer ID:[id number] Group ID:[id number] Type:Not on file Address: [facility] [address] [id number] Advance Directives Documents on File Type Date Recorded 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 Do not modify or discontinue any currently active code status orders. * Full Code - Default Date Activated Date Inactivated Comments 11/11/2024 7:51 PM 11/13/2024 7:06 PM This is order is used when code status has not been discussed with the patient, or code status is otherwise unknown/unconfirmed To update the patient's code status, place a code status order. Do not modify or discontinue any currently active code status orders. * Full Code - Default Date Activated Date Inactivated Comments 11/11/2024 7:51 PM 11/11/2024 7:51 PM This is order is used when code status has not been discussed with the patient, or code status is otherwise unknown/unconfirmed To update the patient's code status, place a code status order. Do not modify or discontinue any currently active code status orders. Care Teams Bottle Blowing Machine Tender Relationship Specialty Start Date End Date Henrique Soler MD [address] [place] [address] [address] [place], [place] PCP - General Internal Medicine 06/18/14
== END 2024-12-01 16:26 | disposition home or self-care (01) ==
LOC: HO.HMCH 15:14
PROVIDERS: PCP Internal Medicine; Visit Provider Internal Medicine
DX: R42 Dizziness and giddiness (principal); M25.551 Pain in right hip; M47.816 Spondylosis without myelopathy or radiculopathy, lumbar region; J45.30 Mild persistent asthma, uncomplicated; G43.909 Migraine, unspecified, not intractable, without status migrainosus; M79.7 Fibromyalgia; M75.102 Unspecified rotator cuff tear or rupture of left shoulder, not specified as traumatic; M12.812 Other specific arthropathies, not elsewhere classified, left shoulder; M17.0 Bilateral primary osteoarthritis of knee; J30.9 Allergic rhinitis, unspecified; K21.9 Gastro-esophageal reflux disease without esophagitis; E55.9 Vitamin D deficiency, unspecified

== ENCOUNTER → 2024-12-01 15:14 | Outpatient (BNVA) | payer OTHER, SELFPAY | PROVIDERS: PCP Internal Medicine; Visit Provider Internal Medicine | DX: R42 Dizziness and giddiness (principal); M25.551 Pain in right hip; M47.816 Spondylosis without myelopathy or radiculopathy, lumbar region; J45.30 Mild persistent asthma, uncomplicated; G43.909 Migraine, unspecified, not intractable, without status migrainosus; M79.7 Fibromyalgia; M75.102 Unspecified rotator cuff tear or rupture of left shoulder, not specified as traumatic; M12.812 Other specific arthropathies, not elsewhere classified, left shoulder; M17.0 Bilateral primary osteoarthritis of knee; J30.9 Allergic rhinitis, unspecified; K21.9 Gastro-esophageal reflux disease without esophagitis; E55.9 Vitamin D deficiency, unspecified; E53.8 Deficiency of other specified B group vitamins; G47.00 Insomnia, unspecified; F41.9 Anxiety disorder, unspecified; F32.9 Major depressive disorder, single episode, unspecified; E66.9 Obesity, unspecified; Z68.37 Body mass index [BMI] 37.0-37.9, adult; Z79.899 Other long term (current) drug therapy | CPT/HCPCS: 96127; 99212 ==

== ENCOUNTER 2024-12-31 13:30 | Outpatient (AMB) | payer OTHER, SELFPAY ==
[2024-12-31 13:35] VITALS: BP 110/80; PULSE 93; O2SAT 97; BMI 36.2
--- NOTE | 2024-12-31 13:35 | A.OFFPC_ITS ---
Vital Signs 12/31/24 13:35 Height 5 ft 6 in Weight 224 lb 8 oz BMI 36.2 BP 110/80 Blood Pressure Location Lt brachial Position Sitting Pulse 93 Pulse Source Pulse Oximeter Pulse Oximetry (%) 97 Oxygen Delivery Method Room Air Intake Visit Reasons: 4mth f/u+ due for breast cx screening In Store Marketer Required: No Accompanied by: Self / Same As Patient Allergies codeine (Tylenol-Codeine #3) Allergy (Intermediate, Verified 12/31/24 14:11) Rash morphine Allergy (Intermediate, Verified 12/31/24 14:11) rash and itching nalbuphine (From Nubain) Allergy (Intermediate, Verified 12/31/24 14:11) Rash oxycodone (Percocet) Allergy (Intermediate, Verified 12/31/24 14:11) Rash propoxyphene (From Darvocet-N 100) Allergy (Intermediate, Verified 12/31/24 14:11) Rash tramadol (Ultram) Allergy (Intermediate, Verified 12/31/24 14:11) Rash ibuprofen (From Motrin) Allergy (Mild, Verified 12/31/24 14:11) RASH montelukast (Singulair) Allergy (Unknown, Verified 12/31/24 14:11) Unknown Medication List - Last Reconciled 12/31/24 by Henrique Soler MD [ADULT PULL-UPS -- MEDIUM SIZE As directed] [BED PADS As directed] bupropion HCl SR 200 mg PO BID buspirone 10 mg PO BID 30 days celecoxib (Celebrex) 200 mg PO BID 30 days cholecalciferol (vitamin D3) 50 mcg PO DAILY 90 days cyanocobalamin (vitamin B-12) 1,000 mcg PO DAILY 90 days divalproex 500 mg PO BID 30 days duloxetine 30 mg PO BID 30 days ergocalciferol (vitamin D2) (Vitamin D2) 1,250 mcg PO QWEEK [Heating Pad As directed] heating pads As directed [INCONTINENCE PADS Use as directed] [LEFT KNEE BRACE As directed] lemborexant (Dayvigo) mg PO DAILY loratadine 10 mg PO DAILY PRN 30 days lorazepam mg PO meclizine 25 mg PO DAILY PRN nortriptyline 25 mg PO BID 30 days pantoprazole 40 mg PO DAILY pregabalin 150 mg PO TID 30 days [QUAD CANE As directed] [QUAD CANE (lightweight) As directed] [RAISED TOILET SEAT As directed] [RIGHT KNEE BRACE As directed] [RIGHT THUMB SPLINT As directed] [RUBBER HANDLE/STEWARD/STEWARDESS RAILROAD DINING CAR for 4-pronged aluminum cane As directed] [RUBBER TIPS FOR QUAD CANE As directed] scopolamine base (Transderm-Scop) 1 patch transdermal Q3D PRN trazodone 50 mg PO BEDTIME PRN 30 days Ventolin HFA 90 mcg/actuation (albuterol sulfate) 2 puffs inhalation Q4-6H PRN NS [WRIST BRACE (right wrist) - MEDIUM As directed] Tobacco use date assessed: 12/31/24 Fall risk assessment: 1 Fall in past year Last assessed Fall Risk: 12/31/24 Dental Screening Dental Screen Date: 12/31/24 Did you have a dental visit in the last 12 months?: No Did you have a dental problem in the last 6 months where you did not have access to dental care?: No Was dental information given to patient?: No HPI 4mth f/u+ due for breast cx screening HPI Details Patient comes in today for her follow up visit - is accompanied by her stepdaughter, who acts as her paraprofessional interpreter today States that her stepdaughter is now trying to step in to help with her overall care as much as she can Patient continues to experience recurrent/frequent dizziness and her stepdaughter is suspecting that her symptoms are likely due to some of patient's current psychiatric medications although she is not sure which one is actually causing her symptoms (thinks it is her red pill but they do not know which one that is as her current Rx are all prepackaged by her pharmacy Her stepdaughter states that she has not given this medication to the patient for the past couple of days and patient's dizziness appears to have improved significantly since Patient states that she feels okay otherwise and denies any headaches She denies any chest pains, no increased shortness of breath No nausea/vomiting, no abdominal pain No change in bowel habits noted States that she still has chronic low back pain but this has been mostly manageable recently She was not able to get her follow-up labs done prior to her appointment today [facility] Medical History Folliculitis Pure hypercholesterolemia Allergic rhinitis Insomnia Multiple joint pain GERD without esophagitis Vitamin D deficiency Lumbar spondylosis Obesity (BMI 30-39.9) Migraine Primary osteoarthritis of both knees Urinary incontinence Rotator cuff tear, left Depression Asthma Fibromyalgia Non-toxic multinodular goiter Anxiety Surgical History Status post rotator cuff surgery S/P rotator cuff repair Status post right rotator cuff repair (~07/26/18) History of hysterectomy History of cholecystectomy History of laminectomy (~2009) Family History Father Diabetes Mother Medical history unknown Social History Household Members: None Housing: Apartment Do you presently have visiting nurse or other home services: No Alcohol intake: former Patient Tobacco Use Status: Never used Tobacco e-Cigarette/Vaping Use: Never Used Second Hand Smoke Exposure: No service: No Current occupational status: disabled Cognitive needs: Yes (cane) Hearing needs: No Vision needs: Yes (glasses) Questionnaire PHQ-9 Over the last 2 weeks, how often have you been bothered by any of the following problems? 1. Little interest or pleasure in doing things: more than half the days 2. Feeling down, depressed, or hopeless: more than half the days 3. Trouble falling or staying asleep, or sleeping too much: several days 4. Feeling tired or having little energy: more than half the days 5. Poor appetite or overeating: nearly every day 6. Feeling bad about yourself - or that you are a failure or have let yourself or your family down: more than half the days 7. Trouble concentrating on things, such as reading the newspaper or watching television: several days 8. Moving or speaking so slowly that other people could have noticed. Or the opposite - being so fidgety or restless that you have been moving around a lot more than usual: more than half the days 9. Thoughts that you would be better off or of hurting yourself in some way: not at all Total score: 15 Depression Screening Interpretation: Positive Depression Screening Follow-up: Existing condition and In treatment Depression Screening Done: Yes 31947 - PHQ-9 Billing: Yes Source: Developed by Drs. Lang Pacheco, Filemon Quinn and colleagues, with an educational juvenal from [employer]. Thrive Questionnaire Date Thrive assessed: 12/31/24 I am a: Patient What is your living situation today?: I have a steady place to live Within the past 12 months, did the food you bought not last and you didn't have the money to get more?: Often true Within the past 12 months, did you worry whether your food would run out before you got money to buy more?: Often true Do you have trouble paying for medicines?: No Do you have trouble getting transportation to medical appointments?: No Do you have trouble paying your heating and electricity bill?: No Do you have trouble taking care of your child, family member or friend?: No Do you have trouble with day-to-day activities such as bathing, preparing meals, shopping, managing finances, etc.?: Yes Are you currently unemployed and looking for a job?: Yes Are you interested in more education?: No Please select the resources that you would like help with: Food Currently or been in a relationship where the following occur: No concerns reported THRIVE Score: 2 AUDIT C Alcohol Use Questionnaire (AUDIT-C) 1. How often do you have a drink containing alcohol?: Never 3. How often do you have six or more drinks on one occasion?: Never Total Score: 0 Score Reviewed/Action Taken: Yes FLACO-7 AMB Questionnaire FLACO-7 Date FLACO - 7 assessed: 12/31/24 Feeling nervous, anxious, or on edge: 2 = More than half the days Not being able to stop or control worryin = More than half the days Worrying too much about different things: 2 = More than half the days Trouble relaxin = More than half the days Being so restless that it is hard to sit still: 2 = More than half the days Becoming easily annoyed or irritable: 2 = More than half the days Feeling afraid as if something awful might happen: 0 = Not at all Total FLACO-7 score (0-4 normal; 5-9 mild; 10-14 moderate; 15-21 severe): 12 Source: Developed by Drs. Lang Pacheco, Filemon Quinn and colleagues, with an educational juvenal from [employer]. Review of Systems Const Reports body aches (diffuse), Denies chills, Reports difficulty sleeping (see HPI for details), Reports fatigue (increased), Denies fever(s) and Denies headache(s) ENT Denies dysphagia, Reports dizziness (recurrent/frequent although this has improved in the past couple of days), Denies otalgia, Denies headache(s), Reports neck pain (chronic), Denies odynophagia and Denies sore throat Card Denies chest pain, Denies irregular heart rhythm, Denies palpitations and Reports dyspnea on exertion (mild) Resp Denies chest congestion, Denies cough and Reports dyspnea on exertion (mild) GI Denies abdominal pain, Denies constipation, Denies dysphagia, Denies heartburn, Denies diarrhea, Denies nausea, Denies odynophagia and Denies vomiting Denies difficulty voiding, Denies dysuria, Denies urinary incontinence and Denies urinary urgency Musc Details: recurrent pain over the left lower back that often radiates down the back of her left lower extremity Reports abnormal gait (unsteady gait), Reports back pain (over the lower back (chronic) but has increasing pain on left side lately), Reports arthralgias (left shoulder - S/P surgery in 03/2021), Reports neck pain (chronic) and Reports stiffness (left shoulder) Skin/Breast Denies rash Neuro Reports abnormal gait (unsteady gait), Reports dizziness (recurrent/frequent although this has improved in the past couple of days), Denies headache(s) and Denies paresthesias Psych Denies anxiety and Denies depression Endo Reports fatigue (increased) and Denies palpitations Corona/Lymph Denies easy bruising Physical exam (Primary Care) Vital Signs: Last Vital Signs Pulse 93 12/31/24 13:35 BP 110/80 12/31/24 13:35 Pulse Ox 97 12/31/24 13:35 Oxygen Delivery Method Room Air 12/31/24 13:35 BMI result Body Mass Index 36.2 Tobacco/Smoking Status: Tobacco use Status Tobacco use date assessed 12/31/24 12/31/24 13:43 Patient Tobacco Use Status Never used Tobacco 12/31/24 13:43 Tobacco use type 11/30/24 12:25 e-Cigarette/Vaping Use Never Used 12/31/24 13:43 PHQ-9: PHQ-9 Score PHQ-9: Total score 15 12/31/24 14:16 Depression Screening Interpretation: Positive Depression Screening Follow-up: Existing condition and In treatment Thrive Assessment: Date of Thrive Assessment Date Thrive assessed 12/31/24 12/31/24 13:43 Currently or been in a relationship where the following occur: No concerns reported Const General: no acute distress and alert HENMT Ears: TM's normal bilaterally and EAC's normal Throat: Yes posterior oropharynx normal and Yes tonsils normal (no TP congestion) Neck Neck: Yes supple and No lymphadenopathy Thyroid: Thyroid normal Resp Auscultation: clear to auscultation bilaterally, no rales and no wheezes Cardio Rate: regular rate Rhythm: regular rhythm Heart sounds: no murmurs GI Palpation (GI): Soft to palpation and nontender Auscultation: normal bowel sounds General: Yes no CVA tenderness Back/Spine/Pelvis Back: no CVA tenderness Cervical Spine: cervical muscular tenderness and Cervical spine tenderness Thoracic/Lumbar Spine: paraspinal muscle tenderness bilaterally in the upper thoracic, in the mid lumbar and in the lower lumbar and on the left greater than right and lumbar spinal tenderness Skin Rashes: no rashes Extrem General: Yes no clubbing, cyanosis or edema Left upper extremity: shoulder/upper arm Details: tenderness Location: of the A- C joint and normal ROM; no swelling Coding Level of Care Code Est Pt Level 4 (62375) Diagnoses Dizziness of unknown etiology R42 Right hip pain M25.551 Lumbar spondylosis M47.816 Mild persistent asthma without complication J45.30 Asthma complication type: uncomplicated Asthma persistence: persistent Asthma severity: mild Migraine without status migrainosus, not intractable, unspecified migraine type G43.909 Intractability: not intractable Migraine type: unspecified Status migrainosus presence: without status migrainosus Fibromyalgia M79.7 Rotator cuff tear arthropathy of left shoulder M75.102; M12.812 Primary osteoarthritis of both knees M17.0 Allergic rhinitis, unspecified seasonality, unspecified trigger J30.9 Allergic rhinitis seasonality: unspecified Allergic rhinitis trigger: unspecified GERD without esophagitis K21.9 Vitamin D deficiency E55.9 Vitamin B12 deficiency E53.8 Insomnia, unspecified type G47.00 Insomnia type: unspecified Anxiety F41.9 Depression, unspecified depression type F32.9 Depression Type: unspecified Obesity (BMI 30-39.9) E66.9 Breast cancer screening by mammogram Z12.31 Additional Codes PHQ-9 - 20415 - PHQ-9 Billing: Yes ([id number]) Assessment & Plan Assessment & Plan (1) Dizziness of unknown etiology: Code(s): R42 - Dizziness and giddiness Category: Medical Plan: Patient had head CT done at [facility] last month, which came back negative We sent patient for some labs for further evaluation but she has not yet gotten these done She was also referred to physical therapy for further evaluation and she has been advised that if PT evaluation is unrevealing, will need to consider sending her for neurology evaluation Patient's stepdaughter suspects that her symptoms are likely due to some of patient's current psychiatric medications although she is not sure which one is actually causing her symptoms - states that she has not given patient her red pill for the past couple of days and her dizziness appears to have improved significantly since Patient's stepdaughter has been advised that she should check on this with patient's psychiatrist CARI as her psychiatrist is the one prescribing and managing all of the patient's current psychiatric medications (2) Right hip pain: Code(s): M25.551 - Pain in right hip Category: Medical Plan: X-rays of the right hip done at the ER at [facility] last month came back negative If her right hip pain persists, will consider referring her to physical therapy (3) Lumbar spondylosis: Code(s): M47.816 - Spondylosis without myelopathy or radiculopathy, lumbar region Category: Medical Plan: Reinforced activity and weight-lifting restrictions Continue Methocarbamol 750 mg TID PRN and Duloxetine 30 mg QD MRI of the lumbar spine last done in 05/2021 revealed s/p instrumented fusion at the L2-L3 level with laminectomy changes, with no significant canal or foraminal compromise, stable in appearance. Stable discogenic degenerative changes at multiple levels, with stable multilevel bilateral facet arthropathy. Multilevel disc bulging and foraminal disc protrusions are again noted, similar to the previous exam with no significant central spinal canal stenosis. No significant neural foraminal stenosis. No abnormal enhancement within the limitations of the study. Repeat lumbar spine x-rays done at [facility] last year showed stable post-op changes with no acute findings She was referred to physical therapy last year because of increased pain, especially over her left lower back, with radiation of pain down the left leg but it does not look like she was seen by PT as we have not received any updated correspondence on this Repeat x-rays of the lumbar spine done in August 2024 revealed (+) chronic changes with no acute findings She was also seeing pain management previously and was going to have a trial of ROSARIO soon as mentioned at her last visit but we have not received any updates on this since We referred her back to pain management previously for her increased low back pain and she was last seen by them in August 2024 - it appears that she was scheduled for a diagnostic bilateral L3-L4 DR L5 medial branch blocks with local and fluoroscopy last month but patient did not show up for her appointment Patient appears to be unable to keep up with her appointments as she does not seem to be able to recall them Have advised patient stepdaughter to take charge of this is well and that she should try to reach out to pain management next door to scheduled patient's next follow-up with them CARI (4) Asthma: Code(s): J45.909 - Unspecified asthma, uncomplicated Category: Medical Qualifiers: Asthma complication type: uncomplicated Asthma persistence: persistent Asthma severity: mild Qualified Code(s): J45.30 - Mild persistent asthma, uncomplicated Plan: Controlled Continue Flovent HFA 110 mcg 1 inhalation BID and Albuterol HFA 2 puffs 4 times a day as needed; she also has Albuterol nebulization to use as needed (5) Migraine: Code(s): G43.909 - Migraine, unspecified, not intractable, without status migrainosus Category: Medical Qualifiers: Intractability: not intractable Migraine type: unspecified Status migrainosus presence: without status migrainosus Qualified Code(s): G43.909 - Migraine, unspecified, not intractable, without status migrainosus Plan: Stable on prophylactic Tx Continue Nortriptyline 25 mg Q BID Reinforced again avoidance of all potential migraine triggers (6) Fibromyalgia: Code(s): M79.7 - Fibromyalgia Category: Medical Plan: She is encouraged again on regular exercise and physical activity to help manage her fibromyalgia symptoms Continue Pregabalin 150 mg TID, Nortriptyline 25 mg BID and Duloxetine 30 mg BID She was seen at [facility] Rheumatology by Dr. Darnell many years ago and she has not been back in a few years She was referred back to [facility] rheumatology for further evaluation and management - was seen by Dr. Tavarez a few months ago and she was advised to continue on her current Rx with no further recommendations; was also advised to just follow up with her PCP (7) Rotator cuff tear arthropathy of left shoulder: Comment: S/P left rotator cuff surgery in September [address] Velázquez Code(s): M75.102 - Unspecified rotator cuff tear or rupture of left shoulder, not specified as traumatic; M12.812 - Other specific arthropathies, not elsewhere classified, left shoulder Category: Medical Plan: She was seen previously by orthopedics and was recommended to continue with gentle physical therapy of her left shoulder but patient states that this did not really help much Repeat MRI of the shoulder done at [facility] on 02/26/2024 revealed (+) mild glenohumeral joint osteoarthritis with joint effusion and diffuse synovitis. The rotator cuff repair and prior biceps tenodesis appear intact and there are no evidence of recurrent tear. There is mild supraspinatus and infraspinatus muscle atrophy. S/P acromioplasty Follow up with orthopedics as scheduled (8) Primary osteoarthritis of both knees: Code(s): M17.0 - Bilateral primary osteoarthritis of knee Category: Medical Plan: Follow up with orthopedics as scheduled Has knee braces that she wears as needed for added stability to her knees and to help reduce her knee pain (9) Allergic rhinitis: Code(s): J30.9 - Allergic rhinitis, unspecified Category: Medical Qualifiers: Allergic rhinitis seasonality: unspecified Allergic rhinitis trigger: unspecified Qualified Code(s): J30.9 - Allergic rhinitis, unspecified Plan: Continue Loratadine 10 mg QD PRN (10) GERD without esophagitis: Code(s): K21.9 - Gastro-esophageal reflux disease without esophagitis Category: Medical Plan: Dietary restrictions reinforced Continue Pantoprazole 40 mg QD (11) Vitamin D deficiency: Code(s): E55.9 - Vitamin D deficiency, unspecified Category: Medical Plan: Continue Vitamin D2 36121 units once a week Will have patient recheck her labs for follow-up in 3 months (12) Vitamin B12 deficiency: Code(s): E53.8 - Deficiency of other specified B group vitamins Category: Medical Plan: Continue Vitamin B12 1000 mcg twice a week - she was instructed to cut back on her dosing from daily to BIW as her serum B12 level was very high on her previous labs (13) Insomnia: Comment: was on Trazodone 150 mg in the past but has not refilled Rx since 2016 Code(s): G47.00 - Insomnia, unspecified Category: Medical Qualifiers: Insomnia type: unspecified Qualified Code(s): G47.00 - Insomnia, unspecified Plan: Sleep hygiene reinforced She was started her back on a trial of Trazodone 50 mg Q HS PRN at her last visit Have advised patient that her frequent awakening from sleep at night is likely multifactorial, including her recently increased low back pain as well as her urinary frequency and that addressing these issues should eventually lead to less awakenings and better and more restful sleep at night (14) Anxiety: Code(s): F41.9 - Anxiety disorder, unspecified Category: Medical Plan: Continue Lorazepam 0.5 mg TID PRN, Hydroxyzine 25 mg TID PRN and Buspirone 10 mg BID Follow up with psychiatry as scheduled (15) Depression: Code(s): F32.9 - Major depressive disorder, single episode, unspecified Category: Medical Qualifiers: Depression Type: unspecified Qualified Code(s): F32.9 - Major depressive disorder, single episode, unspecified Plan: Continue Budeprion SR 100 mg 2 tablets BID Follow up with psychiatry as scheduled (16) Obesity (BMI 30-39.9): Code(s): E66.9 - Obesity, unspecified Category: Medical Plan: Reinforced diet; weight loss and exercise are unrealistic given patient's multiple physical issues and limited activity tolerance (17) Breast cancer screening by mammogram: Code(s): Z12.31 - Encounter for screening mammogram for malignant neoplasm of breast Category: Medical Plan: Patient is now overdue for repeat annual mammogram - ordered Plan Follow up in 3 months Orders: Orders Complete Blood Count Auto Diff 3 Months D64.9 - Anemia, unspecified Lipid Panel 3 Months E78.00 - Pure hypercholesterolemia, unspecified Vitamin B12 and Folate 3 Months E53.8 - Deficiency of other specified B group vitamins Hemoglobin A1c 3 Months R73.01 - Impaired fasting glucose MM tomosynthesis screening BI 12/31/24 Z12.31 - Encounter for screening mammogram for malignant neoplasm of breast Comprehensive Lawson. Panel Fast 3 Months E78.00 - Pure hypercholesterolemia, unspecified TSH reflex Free T4 3 Months E78.00 - Pure hypercholesterolemia, unspecified UA CC w/rflx Micro + Cult 3 Months R30.0 - Dysuria Vitamin D 25-OH Total 3 Months E55.9 - Vitamin D deficiency, unspecified
--- OUTSIDE RECORDS SUMMARY | 2024-12-31 14:00 | XMS_ITS | Clinical Summary ---
Author Organization [facility] Address [address] [place] [phone] Phone Care Team Providers Care Plastics Technician Name Role Phone Henrique Soler MD Primary Care Provider [phone] Allergies Active Allergy Reactions Criticality Noted Date Comments Acetaminophen Rash 07/18/2015 Acetaminophen-Codeine Rash 07/10/2015 Codeine Rash 07/10/2015 Ibuprofen Rash 07/10/2015 Montelukast 07/18/2015 Morphine Itching Medium 10/07/2024 Oxycodone Rash 07/10/2015 Propoxyphene Rash 07/10/2015 Tramadol Rash 07/10/2015 Medications buPROPion SR (WELLBUTRIN SR) 100 mg 12 hr tablet 04/30/2024 Active loratadine (CLARITIN) 10 mg tablet Take [...] by mouth 2 (two) times a day. 11/07/2024 Active pantoprazole (PROTONIX) 40 mg EC tablet Take 1 tablet (40 mg total) by mouth 1 (one) time each day before breakfast. 11/07/2024 Active Active Problems Problem Noted Date Diagnosed [...] - 11/25/2024 3:42 PM EDT Hospital Encounter [facility] [address] [place] [phone] Christophe Hilton MD Neenan, Kevin P, DO Bukalo, Nermina, MD Bell, Alistair A, MD Fall, initial encounter (Primary Dx); Acute cystitis without hematuria; Dizziness Discharge Disposition: [place] [facility]/11/2024 12:50 PM EDT - 11/13/2024 5:06 PM EDT Hospital Encounter [facility] [address] [place] [phone] Man Cornelius, Tyshawn Edwards MD Santoyo-Pacheco, Omar D, MD Dizziness (Primary Dx) Discharge Disposition: Home-Health Care Svc 11/09/2024 6:15 PM EDT - 11/10/2024 12:29 AM EDT Emergency [facility] Emergency [address] [place] [phone] Acute cystitis without hematuria (Primary Dx); Dizziness Discharge Disposition: Home or Self Care 10/07/2024 6:14 PM EDT - 10/08/2024 1:34 AM EDT Emergency [facility] Emergency [address] [place] [address] Viral gastroenteritis (Primary Dx) Discharge Disposition: Home [...] 76 11/25/2024 2:30 PM EDT Temperature 36.3 C (97.3 F) 11/25/2024 2:30 PM EDT Respiratory Rate 16 11/25/2024 2:30 PM EDT Oxygen Saturation 95% 11/25/2024 2:30 PM EDT Inhaled Oxygen Concentration - - Weight 102 kg (225 lb) 11/24/2024 11:10 AM EDT Height 167.6 cm (5' 6 ) 11/24/2024 11:10 AM EDT Body Mass Index 36.32 11/24/2024 11:10 AM EDT Plan of Treatment Health Maintenance Due Date Last Done Comments Zoster Vaccines (1 of 2) 2006 RSV Immunization Adult Patients (1 - Risk 60-74 years 1-dose series) 2016 Breast Cancer Screening 09/02/2019 09/02/2017 Colorectal Cancer [...] Cholesterol Screening (Lipid Panel) 11/12/2029 11/12/2024, 07/18/2015 Hepatitis C Screening Completed 07/18/2015 HIB Vaccines [...] ECG 12-LEAD STAT 11/09/2024 6:00 PM EDT [facility] URINE CULTURE TUBE STAT 10/07/2024 9:54 PM [...] LAB HEMETOLOGY METHOD 11/25/2024 7:10 AM EDT [facility] RBC 4.60 3.80 - 4.80 M/mcL LAB HEMETOLOGY METHOD 11/25/2024 7:10 AM EDT [facility] Hemoglobin 13.2 11.5 - 16.0 g/dL LAB HEMETOLOGY METHOD 11/25/2024 7:10 AM EDT [facility] Hematocrit 42.1 35.0 - 47.0 % LAB HEMETOLOGY METHOD 11/25/2024 7:10 AM EDT [facility] MCV 91.1 79.0 - 98.0 FL LAB HEMETOLOGY METHOD 11/25/2024 7:10 AM EDT [facility] MCH 28.6 27.0 - 32.0 pcg LAB HEMETOLOGY METHOD 11/25/2024 7:10 AM EDT [facility] MCHC 31.4(L) 32.0 - 37.0 g/dL LAB HEMETOLOGY METHOD 11/25/2024 7:10 AM EDT [facility] RDW 14.6 11.0 - 15.0 % LAB HEMETOLOGY METHOD 11/25/2024 7:10 AM EDT [facility] Platelets 190 130 - 400 K/mcL LAB HEMETOLOGY METHOD 11/25/2024 7:10 AM EDT [facility] MPV 12.2(H) 7.0 - 11.0 FL LAB HEMETOLOGY METHOD 11/25/2024 7:10 AM EDT [facility] NRBC 0.0 <1.0 % LAB HEMETOLOGY METHOD 11/25/2024 7:10 AM EDT [facility] NRBC Absolute 0.00 <0.10 K/mcL LAB HEMETOLOGY METHOD 11/25/2024 7:10 AM EDT [facility] Blood Venous blood specimen / Unknown Venipuncture / Unknown 11/25/2024 6:03 AM EDT 11/25/2024 6:49 AM EDT us Cindy Perez MD LAB BLOOD ORDERABLES Final Res ult [facility] [address] [place] [address], * (ABNORMAL) Basic metabolic panel (11/25/2024 6:03 AM EDT) Only the most recent of5 resultswithin the time period is included. Sodium 139 133 - 145 mmol/L LAB CHEMISTRY METHOD 11/25/2024 7:26 AM [facility] Potassium 4.2 3.5 - 5.5 mmol/L LAB CHEMISTRY METHOD 11/25/2024 7:26 AM [facility] Chloride 108 96 - 110 mmol/L LAB CHEMISTRY METHOD 11/25/2024 7:26 AM [facility] CO2 27 21 - 32 mmol/L LAB CHEMISTRY METHOD 11/25/2024 7:26 AM [facility] Anion Gap 4 3 - 11 LAB CHEMISTRY METHOD 11/25/2024 7:26 AM [facility] Glucose 172(H) 70 - 100 mg/dL LAB CHEMISTRY METHOD 11/25/2024 7:26 AM [facility] BUN 14 5 - 25 mg/dL LAB CHEMISTRY METHOD 11/25/2024 7:26 AM [facility] Creatinine 0.91 0.50 - 1.10 mg/dL LAB CHEMISTRY METHOD 11/25/2024 7:26 AM [facility] eGFR 69 >=60 mL/min/1. 73m2 LAB CHEMISTRY METHOD 11/25/2024 7:26 AM [facility] Comment:Calculation based on the Chronic Kidney Disease Epidemiology Collaboration (CKD-EPI) equation refit without adjustment for race. BUN/Creatinine Ratio 15.4 LAB CHEMISTRY METHOD 11/25/2024 7:26 AM [facility] Calcium 8.5 8.5 - 10.5 mg/dL LAB CHEMISTRY METHOD 11/25/2024 7:26 AM [facility] Blood Venous blood specimen / Unknown Venipuncture / Unknown 11/25/2024 6:03 AM EDT 11/25/2024 6:49 AM EDT Cindy Perez MD LAB BLOOD ORDERABLES Final Res ult Performing Organization Address [facility]/ZIP Co de Phone Number [facility] [address] [place] [address], [place] [phone] * (ABNORMAL) Valproic acid level, total (11/24/2024 7:37 PM EDT) Only the most recent of2 resultswithin the time period is included. [facility] Valproic Acid, Total <3(L) 50 - 100 mcg/mL LAB CHEMISTRY METHOD 11/24/2024 8:30 PM EDT [facility] Blood Venous blood specimen / Unknown Venipuncture / Unknown 11/24/2024 7:37 PM EDT 11/24/2024 8:01 PM EDT Lilli GREENWOOD LAB BLOOD ORDERABLES Final Result Performing Organization Address [facility] Co de Phone Number [facility] [address] [place] [address], [place] [phone] * (ABNORMAL) Urinalysis with reflex microscopic and culture (11/24/2024 6:03 PM EDT) Only the most recent of4 resultswithin the time period is included. [facility] Specific [place] Urine 1.021 1.003 - 1.030 LAB URINALYSIS - AUTOMATED METHOD 11/24/2024 6:33 PM EDT [facility] pH, Urine 5.5 5.0 - 8.0 pH LAB URINALYSIS - AUTOMATED METHOD 11/24/2024 6:33 PM EDT [facility] Leukocytes, Urine Trace(A) Negative LAB URINALYSIS - AUTOMATED METHOD 11/24/2024 6:33 PM EDT [facility] Nitrite, Urine Positive(A) Negative LAB URINALYSIS - AUTOMATED METHOD 11/24/2024 6:33 PM EDT [facility] Protein, Urine Negative <=Trace mg/dL LAB URINALYSIS - AUTOMATED METHOD 11/24/2024 6:33 PM [facility] Glucose, Urine Negative Negative mg/dL LAB URINALYSIS - AUTOMATED METHOD 11/24/2024 6:33 PM [facility] Ketones, Urine Negative Negative mg/dL LAB URINALYSIS - AUTOMATED METHOD 11/24/2024 6:33 PM [facility] Urobilinogen , Urine 0.2 0.2 - 1.0 mg/dL LAB URINALYSIS - AUTOMATED METHOD 11/24/2024 6:33 PM [facility] Bilirubin, Urine Negative Negative LAB URINALYSIS - AUTOMATED METHOD 11/24/2024 6:33 PM [facility] Blood, Urine Trace(A) Negative LAB URINALYSIS - AUTOMATED METHOD 11/24/2024 6:33 PM [facility] RBC, Urine 2.6 0 - 4 /HPF LAB URINALYSIS - AUTOMATED METHOD 11/24/2024 6:33 PM [facility] WBC, Urine 7.6(H) 0 - 4 /HPF LAB URINALYSIS - AUTOMATED METHOD 11/24/2024 6:33 PM [facility] Squamous Epithelial, Urine 36 0 - 60 /LPF LAB URINALYSIS - AUTOMATED METHOD 11/24/2024 6:33 PM [facility] Bacteria, Urine Many(A) Negative /HPF LAB URINALYSIS - AUTOMATED METHOD 11/24/2024 6:33 PM [facility] Hyaline Casts, Urine 4.4(H) 0 - 3 /LPF LAB URINALYSIS - AUTOMATED METHOD 11/24/2024 6:33 PM [facility] Urine Urinary bladder structure / Unknown Non-blood Collection / Unknown 11/24/2024 6:03 PM EDT 11/24/2024 6:16 PM EDT Lilli PhoneAndPhone Formerly named [facility] LAB URINE ORDERABLES Final Result Performing Organization Address [facility]/ZIP Fl de Phone Number [facility] [address] [place] [address], [place] [phone] * Mercedes urine culture tube (11/24/2024 6:03 PM EDT) Only the most recent of5 resultswithin the time period is included. Pathologist [facility] Extra Tube Hold for add-ons. 11/24/2024 8:01 PM EDT [facility] Comment:Auto resulted. Urine Urinary bladder structure / Unknown Non-blood Collection / Unknown 11/24/2024 6:03 PM EDT 11/24/2024 6:16 PM EDT [facility] URINE ORDERABLES Final Result Performing Organization Address [facility] de Phone Number [facility] [address] [place] [address], [place] [phone] * (ABNORMAL) Culture urine (11/24/2024 6:03 PM EDT) Only the most recent of4 resultswithin the time period is included. Pathologist [facility] Culture, Urine 50,000-100,000 CFU/mL Escherichia coli(A) SCOTT 11/27/2024 9:48 AM EDT [facility] Comment: The organism [...] LAB MICROBIOLOGY - GENERAL ORDERABLES Final Result [facility] ([facility]) [facility] [address] [place] [address], * CT Head wo Contrast (11/24/2024 4:03 PM EDT) Anatomical Region Laterality Modality Head and Neck Computed Tomogra phy 11/24/2024 4:12 PM EDT Impressions 11/24/2024 4:17 PM EDT NO ACUTE INTRACRANIAL ABNORMALITY. -------- FINAL REPORT -------- Dictated By: Jake Chambers Dictated Date: 11/24/2024 16:12 ET Assigned Physician: Jake Chambers Reviewed and Electronically Signed By: Jake Chambers Signed Date: 11/24/2024 16:17 ET Workstation ID: [id number] Transcribed By: Self Edit Transcribed Date: 11/24/2024 16:12 ET Narrative 11/24/2024 4:17 PM EDT PROCEDURE: HEAD CT INDICATION: Dizziness, non-specific TECHNIQUE: CT of the head without intravenous contrast. Multiplanar reformats. The examination was performed utilizing dose reduction techniques. Total DLP 809 COMPARISON: 11/18/2023 FINDINGS: No acute territorial infarct, mass effect, or intracranial hemorrhage. Mild scattered periventricular and subcortical white matter hypodensities are most likely related to chronic small vessel ischemic change. Ventriculomegaly with marked cerebral and cerebellar volume loss. Normal pressure hydrocephalus is not entirely excluded but [...] Signed Date: 11/24/2024 16:17 ET Workstation ID: [id number] Transcribed By: Self Edit Transcribed Date: 11/24/2024 [...] Signed Date: 11/24/2024 15:37 ET Workstation ID: [id number] Transcribed By: Self Edit Transcribed Date: 11/24/2024 15:30 ET Narrative 11/24/2024 3:37 PM EDT History: Pelvic fracture Technique: Volumetric imaging through the pelvis without IV contrast obtained in a [employer] light speed VCT scanner. Dose reduction techniques utilized including automated exposure control (mA and kVp adjusted according to patient's size). Iterative reconstruction techniques utilized. DLP: 1095 mGy-cm. Axial, coronal and sagittal images presented for review. Findings: Diverticulosis without evidence for acute diverticulitis. Thickening of the base of the cecum/appendix. Neoplasm in this location is not entirely excluded. Status post hysterectomy. Bladder is unremarkable. No pelvic mass. Mild degenerative changes. No acute osseous abnormality. Procedure Note Jake Chambers MD - 11/24/2024 History: Pelvic fracture Technique: Volumetric imaging through the pelvis without IV contrastobtained in a [employer] light speed VCT scanner. Dose reduction techniquesutilized [...] Signed Date: 11/24/2024 15:37 ET Workstation ID: [id number] Transcribed By: Self Edit Transcribed Date: 11/24/2024 15:30 ET us Christophe Hilton MD IMG CT PROCEDURES Final Result * XR Hip 2-3 Views Right (11/24/2024 12:41 PM EDT) Anatomical Region Laterality Modality Lower Extremities, Hip Right Radiograp hic Imaging 11/24/2024 12:4 7 PM EDT Impressions 11/24/2024 12:48 PM EDT FINDINGS/IMPRESSION: Degenerative changes of both hips and lumbar spine with posterior lumbar fusion hardware noted. No acute fracture. Normal alignment. -------- FINAL REPORT -------- Dictated By: Jake Chambers Dictated Date: 11/24/2024 12:47 ET Assigned Physician: Jake Chambers Reviewed and Electronically Signed By: Jake Chambers Signed Date: 11/24/2024 12:48 ET Workstation ID: [id number] Transcribed By: Self Edit Transcribed Date: 11/24/2024 [...] Signed Date: 11/24/2024 12:48 ET Workstation ID: [id number] Transcribed By: Self Edit Transcribed Date: 11/24/2024 [...] GEMUSE QTc 447 ms GEMUSE P Wave Tate 44 degrees GEMUSE R Tate -9 degrees GEMUSE T Tate 28 degrees GEMUSE ECG Interpretation Normal sinus [...] of5 resultswithin the time period is included. WBC 5.0 4.8 - 10.8 K/mcL LAB HEMETOLOGY METHOD 11/24/2024 12:48 PM EDT [facility] RBC 4.90(H) 3.80 - 4.80 M/mcL LAB HEMETOLOGY METHOD 11/24/2024 12:48 PM EDT [facility] Hemoglobin 14.0 11.5 - 16.0 g/dL LAB HEMETOLOGY METHOD 11/24/2024 12:48 PM EDT [facility] Hematocrit 43.8 35.0 - 47.0 % LAB HEMETOLOGY METHOD 11/24/2024 12:48 PM EDT [facility] MCV 90.3 79.0 - 98.0 FL LAB HEMETOLOGY METHOD 11/24/2024 12:48 PM EDT [facility] MCH 28.9 27.0 - 32.0 pcg LAB HEMETOLOGY METHOD 11/24/2024 12:48 PM EDT [facility] MCHC 32.0 32.0 - 37.0 g/dL LAB HEMETOLOGY METHOD 11/24/2024 12:48 PM EDT [facility] RDW 14.5 11.0 - 15.0 % LAB HEMETOLOGY METHOD 11/24/2024 12:48 PM EDT [facility] Platelets 205 130 - 400 K/mcL LAB HEMETOLOGY METHOD 11/24/2024 12:48 PM EDT [facility] MPV 12.3(H) 7.0 - 11.0 FL LAB HEMETOLOGY METHOD 11/24/2024 12:48 PM EDT [facility] NRBC 0.0 <1.0 % LAB HEMETOLOGY METHOD 11/24/2024 12:48 PM EDT [facility] NRBC Absolute 0.00 <0.10 K/mcL LAB HEMETOLOGY METHOD 11/24/2024 12:48 PM EDT [facility] Neutrophils Relative 30.5 % LAB HEMETOLOGY METHOD 11/24/2024 12:48 PM [facility] Lymphocytes Relative 55.5 % LAB HEMETOLOGY METHOD 11/24/2024 12:48 PM [facility] Monocytes Relative 10.6 % LAB HEMETOLOGY METHOD 11/24/2024 12:48 PM [facility] Eosinophils Relative 2.6 % LAB HEMETOLOGY METHOD 11/24/2024 12:48 PM [facility] Basophils Relative 0.6 % LAB HEMETOLOGY METHOD 11/24/2024 12:48 PM [facility] Immature Granulocytes Relative 0.2 % LAB HEMETOLOGY METHOD 11/24[facility]2024 [facility] Neutrophils Absolute 1.52 1.50 - 7.00 K/mcL LAB HEMETOLOGY METHOD 11/24/2024 12:48 PM EDT [facility] Lymphocytes Absolute 2.77 1.00 - 5.00 K/mcL LAB HEMETOLOGY METHOD 11/24/2024 12:48 [facility] Monocytes Absolute 0.53 0.20 - 1.00 K/mcL LAB HEMETOLOGY METHOD 11/24/2024 12:48 PM EDT [facility] Eosinophils Absolute 0.13 0.00 - 0.50 K/mcL LAB HEMETOLOGY METHOD 11/24/2024 12:48 PM EDT [facility] Basophils Absolute 0.03 0.00 - 0.20 K/[facility] LAB HEMETOLOGY METHOD 11/24/2024 12:48 PM EDT [facility] Immature Granulocytes Absolute 0.01 0.00 - 0.03 K/[facility] LAB HEMETOLOGY METHOD 11/24/2024 12:48 PM EDT [facility] Blood Venous blood specimen / Unknown Venipuncture / Unknown 11/24/2024 11:29 AM EDT 11/24/2024 12:31 PM EDT us Christophe Hilton MD LAB BLOOD ORDERABLES Final Resu lt [facility]) [facility] [address] [place] [address], [place] [phone] * MR Brain wo Contrast (11/12/2024 4:40 PM EDT) Anatomical Region Laterality Modality Head and Neck Magnetic Resonan ce 11/12/2024 4:57 PM EDT Impressions 11/12/2024 5:10 PM EDT MARKED SYMMETRIC CEREBRAL ATROPHY. NO ACUTE INFARCT. -------- FINAL REPORT -------- Dictated By: Jake Chambers Dictated Date: 11/12/2024 16:57 ET Assigned Physician: Jake Chambers Reviewed and Electronically Signed By: Jake Chambers Signed Date: 11/12/2024 17:10 ET Workstation ID: [id number] Transcribed By: Self Edit Transcribed Date: 11/12/2024 16:57 ET Narrative 11/12/2024 5:10 PM EDT PROCEDURE: MR BRAIN WO CONTRAST INDICATION: dizziness persistent TECHNIQUE: Axial diffusion weighted, as well as T1 and T2-weighted multiplanar imaging without intravenous contrast. COMPARISON: No priors available. FINDINGS: There is symmetric diffuse cerebral volume loss with commensurate enlargement of the ventricles and sulci. Diffusion-weighted images demonstrate no evidence for an acute infarct. There is no mass effect or midline shift. There are few scattered periventricular hyperintensities compatible with chronic microvascular ischemic changes. Unremarkable orbits, orbital soft tissues, mastoid air cells. No acute calvarial abnormality. Unremarkable paranasal sinuses. Midline structures including the midbrain, visualized cervical cord [...] Signed Date: 11/12/2024 17:10 ET Workstation ID: [id number] Transcribed By: Self Edit Transcribed Date: 11/12/2024 16:57 ET us Jojo GREENWOOD IM MRI PROCEDURES Final Resu lt * (ABNORMAL) Lipid panel with reflex to direct LDL (11/12/2024 6:15 AM EDT) Cholesterol 203(H) 0 - 200 mg/dL LAB CHEMISTRY METHOD 11/12/2024 8:03 AM EDT [facility] Triglycerides 80 0 - 150 mg/dL LAB CHEMISTRY METHOD 11/12/2024 8:03 AM EDT [facility] HDL 71 >=40 mg/dL LAB CHEMISTRY METHOD 11/12/2024 8:03 AM EDT [facility] LDL Calculated 116(H) 0 - 100 mg/dL LAB CHEMISTRY METHOD 11/12/2024 8:03 AM EDT [facility] VLDL Cholesterol Randy 16 mg/dL LAB CHEMISTRY METHOD 11/12/2024 8:03 AM EDT [facility] Non HDL Chol. (LDL+VLDL) 132 <145 mg/dL LAB CHEMISTRY METHOD 11/12/2024 8:03 AM EDT [facility] Chol/HDL Ratio 2.9 0.0 - 4.4 LAB CHEMISTRY METHOD 11/12/2024 8:03 AM EDT [facility] Blood Venous blood specimen / Unknown Venipuncture / Unknown 11/12/2024 6:15 AM EDT 11/12/2024 6:58 AM EDT us Jojo GREENWOOD LAB BLOOD ORDERABLES Final Re sult Performing Organization Address City/[facility]/ZIP Co de Phone Number [facility] [address] [place] [address], [place] [phone] * Magnesium (11/12/2024 6:15 AM EDT) Only the most recent of4 resultswithin the time period is included. Magnesium 1.9 1.9 - 2.6 mg/dL LAB CHEMISTRY METHOD 11/12/2024 8:03 AM EDT [facility] Blood Venous blood specimen / Unknown Venipuncture / Unknown 11/12/2024 6:15 AM EDT 11/12/2024 6:58 AM EDT Jojo GREENWOOD LAB BLOOD ORDERABLES Final Re sult [facility] [address] [place] [address], * CT Angio Head/Neck wo and/or w [...] Signed Date: 11/11/2024 16:54 ET Workstation ID: [id number] Transcribed By: Self Edit Transcribed Date: 11/11/2024 [...] Omnipaque 370 injected. Scan was analyzed using [employer] AI based computer aided triage software. Total DLP: 3710 mGy/cm COMPARISON: No priors available. FINDINGS: Noncon Brain: Cerebral hemispheres are symmetric without evidence for mass, hemorrhage or CT evidence for acute territorial infarct. Frontal lobe atrophy with prominence of the frontal horns of the lateral ventricles. 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 Bovine configuration of the arch with direct origin of the left vertebral artery. Common carotid and internal carotid arteries are patent in the neck. Cervical vertebral arteries are patent. Hypoventilatory changes in the lungs. Enhancing left thyroid nodule should be further evaluated with ultrasound and sampling if indicated. CTA Head: Intracranial portions of the internal carotid arteries are patent. Hypoplastic right ELENA. Anterior circulation provided by the left ELENA. Vertebrobasilar system is patent. Proximal adjunct faculty for medical terminology are patent. Major dural venous sinuses opacify normally with contrast. Extracranial structures are unremarkable. Degenerative changes in the bones. Procedure Note Jake Chambers MD - 11/11/2024 PROCEDURE: CTA HEAD AND NECK INDICATION: Neuro deficit, acute, stroke suspected TECHNIQUE: CTA of the head and neck with intravenous contrast. Multiplanarreformats. The examination was performed utilizing dose reductiontechniques.3-D or MIP images were produced with postprocessing on [employer] computer workstation. 90cc Omnipaque 370 injected. Scan wasanalyzed using [employer] AI based computer aided triage software. Total [...] left ELENA. Vertebrobasilar system is patent. Proximal adjunct faculty for medical terminology are patent. Major dural venous sinuses opacify normally with contrast. Extracranial structures are unremarkable. Degenerative changes in thebones. IMPRESSION: NO ACUTE ABNORMALITY. -------- FINAL REPORT -------- Dictated By: Jake Chambers Dictated Date: 11/11/2024 16:51 ET Assigned Physician: Jake Chambers Reviewed and Electronically Signed By: Jake Chambers Signed Date: 11/11/2024 16:54 ET Workstation ID: [id number] Transcribed By: Self Edit Transcribed Date: 11/11/2024 16:51 ET Man Cornelius DO IMG CT PROCEDURES Final Result * (ABNORMAL) Urinalysis with reflex microscopic (11/11/2024 3:03 PM EDT) Specific [place] Urine 1.019 1.003 - 1.030 LAB URINALYSIS - AUTOMATED METHOD 11/11/2024 3:44 PM [facility] pH, Urine 6.0 5.0 - 8.0 pH LAB URINALYSIS - AUTOMATED METHOD 11/11/2024 3:44 PM [facility] Leukocytes, Urine Trace(A) Negative LAB URINALYSIS - AUTOMATED METHOD 11/11/2024 3:44 PM [facility] Nitrite, Urine Negative Negative LAB URINALYSIS - AUTOMATED METHOD 11/11/2024 3:44 PM [facility] Protein, Urine Negative <=Trace mg/dL LAB URINALYSIS - AUTOMATED METHOD 11/11/2024 3:44 PM [facility] Glucose, Urine Negative Negative mg/dL LAB URINALYSIS - AUTOMATED METHOD 11/11/2024 3:44 PM [facility] Ketones, Urine Trace(A) Negative mg/dL LAB URINALYSIS - AUTOMATED METHOD 11/11/2024 3:44 PM [facility] Urobilinogen, Urine 0.2 0.2 - 1.0 mg/dL LAB URINALYSIS - AUTOMATED METHOD 11/11/2024 3:44 PM [facility] Bilirubin, Urine Negative Negative LAB URINALYSIS - AUTOMATED METHOD 11/11/2024 3:44 PM [facility] Blood, Urine Negative Negative LAB URINALYSIS - AUTOMATED METHOD 11/11/2024 3:44 PM [facility] RBC, Urine 3.1 0 - 4 /HPF LAB URINALYSIS - AUTOMATED METHOD 11/11/2024 3:44 PM [facility] WBC, Urine 1.6 0 - 4 /HPF LAB URINALYSIS - AUTOMATED METHOD 11/11/2024 3:44 PM [facility] Squamous Epithelial, Urine 26 0 - 60 /LPF LAB URINALYSIS - AUTOMATED METHOD 11/11/2024 3:44 PM [facility] Bacteria, Urine Negative Negative /HPF LAB URINALYSIS - AUTOMATED METHOD 11/11/2024 3:44 PM EDT [facility] Hyaline Casts, Urine 0.8 0 - 3 /LPF LAB URINALYSIS - AUTOMATED METHOD 11/11/2024 3:44 PM EDT [facility] Urine Urine specimen obtained by clean catch procedure / Unknown Non-blood Collection / Unknown 11/11/2024 3:03 PM EDT 11/11/2024 3:26 PM EDT us Man Cornelius DO LAB URINE ORDERABLES Final Res ult Performing Organization Address [facility]/ZIP Co de Phone Number [facility] [address] [place] [address], [place] [phone] * POCT Glucose, blood (11/11/2024 1:02 PM EDT) Only the most recent of2 resultswithin the time period is included. Glucose POCT 96 70 - 100 mg/dL 11/11/2024 1:03 PM EDT [facility] Blood Capillary blood specimen / Unknown 11/11/2024 1:02 PM EDT 11/11/2024 1:04 PM EDT us Generic Provider Poct LAB POINT OF CARE TEST DOCKED DEVICE UNSOLICITED RESULTS Final Result Performing Organization Address [facility]/ZIP Co de Phone Number [facility] [address] [place] [address], [place] [phone] * (ABNORMAL) Hemoglobin A1c (11/11/2024 12:10 PM EDT) Hemoglobin A1C 6.7(H) <6.5 % LAB CHEMISTRY METHOD 11/11/2024 10:18 PM EDT [facility] Mean Bld Glu Estim. 146 mg/dL LAB CHEMISTRY METHOD 11/11/2024 10:18 PM EDT [facility] Blood Venous blood specimen / Unknown Venipuncture / Unknown 11/11/2024 12:10 PM EDT 11/11/2024 12:17 PM EDT Jojo GREENWOOD LAB BLOOD ORDERABLES Final Re sult Performing Organization Address [facility] Co de Phone Number [facility] [address] [place] [address], [place] [phone] * Troponin I high sensitivity (11/09/2024 8:26 PM EDT) Only the most recent of2 resultswithin the time period is included. [facility] High Sensitivity Troponin I 6 <=54 ng/L LAB CHEMISTRY METHOD 11/09/2024 9:10 PM EDT [facility] Blood Venous blood specimen / Unknown Venipuncture / Unknown 11/09/2024 8:26 PM EDT 11/09/2024 8:33 PM EDT Narrative [facility] - 11/09/2024 9:10 PM EDT High levels of biotin in samples may falsely decrease hsTroponin values. Use caution when interpreting hsTroponin results in patients taking biotin who exhibit renal impairment (eGFR <60) or in patients taking more than 20 mg/day of biotin. Mook Irizarry MD LAB BLOOD ORDERABLES Final Result Performing Organization Address [facility] de Phone Number [facility] [address] [place] [address], [place] [phone] * CT Abdomen Pelvis w Contrast (10/07/2024 [...] Graham MD on 10/07/2024 21:38:17 Jacques GRE[facility] PROCEDURES Final Result * Respiratory virus panel molecular study (10/07/2024 7:07 PM EDT) Adenovirus Detection by PCR Not Detected Not Detected LAB MICROBIOLOGY METHOD 10/07/2024 9:15 PM EDT [facility] Influenza A PCR Not Detected Not Detected LAB MICROBIOLOGY METHOD 10/07/2024 9:15 PM EDT [facility] Influenza B PCR Not Detected Not Detected LAB MICROBIOLOGY METHOD 10/07/2024 9:15 PM EDT [facility] Coronavirus 229E Not Detected Not Detected LAB MICROBIOLOGY METHOD 10/07/2024 9:15 PM EDT [facility] Coronavirus HKU1 Not Detected Not Detected LAB MICROBIOLOGY METHOD 10/07/2024 9:15 PM EDT [facility] Coronavirus OC43 Not Detected Not Detected LAB MICROBIOLOGY METHOD 10/07/2024 9:15 PM EDT [facility] Coronavirus NL63 Not Detected Not Detected LAB MICROBIOLOGY METHOD 10/07/2024 9:15 PM EDT [facility] Parainfluenza Virus 1 Not Detected Not Detected LAB MICROBIOLOGY METHOD 10/07/2024 9:15 PM EDT [facility] Parainfluenza Virus 2 Not Detected Not Detected LAB MICROBIOLOGY METHOD 10/07/2024 9:15 PM EDT [facility] Parainfluenza Virus 3 Not Detected Not Detected LAB MICROBIOLOGY METHOD 10/07/2024 9:15 PM EDT [facility] Parainfluenza Virus 4 Not Detected Not Detected LAB MICROBIOLOGY METHOD 10/07/2024 9:15 PM EDT [facility] RSV PCR Not Detected Not Detected LAB MICROBIOLOGY METHOD 10/07/2024 9:15 PM EDT [facility] Human Metapneumovirus A and B Not Detected Not Detected LAB MICROBIOLOGY METHOD 10/07/2024 9:15 PM EDT [facility] Rhinovirus/Entero virus Not Detected Not Detected LAB MICROBIOLOGY METHOD 10/07/2024 9:15 PM EDT [facility] Bordetella pertussis Not Detected Not Detected LAB MICROBIOLOGY METHOD 10/07/2024 9:15 PM EDT [facility] Bordetella parapertussis Not Detected Not Detected LAB MICROBIOLOGY METHOD 10/07/2024 9:15 PM EDT [facility] Mycoplasma pneumo by PCR Not Detected Not Detected LAB MICROBIOLOGY METHOD 10/07/2024 9:15 PM EDT [facility] Chlamydia pneumoniae Not Detected Not Detected LAB MICROBIOLOGY METHOD 10/07/2024 9:15 PM EDT [facility] SARS COV-2 Not Detected Not Detected LAB MICROBIOLOGY METHOD 10/07/2024 9:15 PM EDT [facility] Swab Both anterior nares / Unknown Non-blood Collection / Unknown 10/07/2024 7:07 PM EDT 10/07/2024 8:01 PM EDT Narrative [facility] - 10/07/2024 9:15 PM EDT Testing was performed using the [employer] Respiratory Pathogen PCR Assay. All results must [...] Onofre Menard MD LAB MICROBIOLOGY - GENERAL GANSEVOORTKadeem [facility] Final Result [facility] [address] [place] [address], * (ABNORMAL) Manual differential (10/07/2024 5:19 PM EDT) Neutrophils % 39.0 % LAB HEMETOLOGY METHOD 10/07/2024 6:37 PM EDT [facility] Lymphocytes % 36.0 % LAB HEMETOLOGY METHOD 10/07/2024 6:37 PM EDT [facility] Reactive Lymphocyte 12.00 % LAB HEMETOLOGY METHOD 10/07/2024 6:37 PM EDT [facility] Monocytes % 10.0 % LAB HEMETOLOGY METHOD 10/07/2024 6:37 PM EDT [facility] Eosinophils % 2.0 % LAB HEMETOLOGY METHOD 10/07/2024 6:37 PM EDT [facility] Basophils % 1.0 % LAB HEMETOLOGY METHOD 10/07/2024 6:37 PM EDT [facility] Neutrophils Absolute Manual 2.73 1.50 - 7.00 K/mcL LAB HEMETOLOGY METHOD 10/07/2024 6:37 PM EDT [facility] Lymphocytes Absolute 2.52 1.00 - 5.00 K/mcL LAB HEMETOLOGY METHOD 10/07/2024 6:37 PM EDT [facility] Reactive Lymph Abs Manual 0.84(H) 0.00 - 0.00 lym LAB HEMETOLOGY METHOD 10/07/2024 6:37 PM EDT [facility] Monocytes Absolute Manual 0.70 0.20 - 1.00 K/mcL LAB HEMETOLOGY METHOD 10/07/2024 6:37 PM EDT [facility] Eosinophils Absolute Manual 0.14 0.00 - 0.50 K/mcL LAB HEMETOLOGY METHOD 10/07/2024 6:37 PM EDT [facility] Basophils Absolute Manual 0.07 0.00 - 0.20 K/[facility] LAB HEMETOLOGY METHOD 10/07/2024 6:37 PM EDT [facility] Rbc Morphology Consistent with indices Consistent with indices, Normal for LAB HEMETOLOGY METHOD 10/07/2024 6:37 PM EDT [facility] Platelet Morphology - WAM See Note(A) Normal LAB HEMETOLOGY METHOD 10/07/2024 6:37 PM EDT [facility] Comment:PLT: Normal Blood Venous blood specimen / Unknown Venipuncture / Unknown 10/07/2024 5:19 PM EDT 10/07/2024 5:31 PM EDT us Lilian Parks DO LAB BLOOD ORDERABLES Elenita l Result [facility] [address] [place] [address], * Lipase (10/07/2024 5:19 PM EDT) Lipase 30 13 - 75 unit/L LAB CHEMISTRY METHOD 10/07/2024 5:56 PM EDT [facility] Blood Venous blood specimen / Unknown Venipuncture / Unknown 10/07/2024 5:19 PM EDT 10/07/2024 5:31 PM EDT us Lilian Parks DO LAB BLOOD ORDERABLES Elenita l Result [facility] [address] [place] [address], * (ABNORMAL) Comprehensive metabolic panel (10/07/2024 5:19 PM EDT) Sodium 137 133 - 145 mmol/L LAB CHEMISTRY METHOD 10/07/2024 6:14 PM [facility] Potassium 4.0 3.5 - 5.5 mmol/L LAB CHEMISTRY METHOD 10/07/2024 6:14 PM [facility] Chloride 103 96 - 110 mmol/L LAB CHEMISTRY METHOD 10/07/2024 6:14 PM [facility] CO2 27 21 - 32 mmol/L LAB CHEMISTRY METHOD 10/07/2024 6:14 PM [facility] Anion Gap 7 3 - 11 LAB CHEMISTRY METHOD 10/07/2024 6:14 PM [facility] Glucose 141(H) 70 - 100 mg/dL LAB CHEMISTRY METHOD 10/07/2024 6:14 PM [facility] BUN 29(H) 5 - 25 mg/dL LAB CHEMISTRY METHOD 10/07/2024 6:14 PM [facility] Creatinine 1.07 0.50 - 1.10 mg/dL LAB CHEMISTRY METHOD 10/07/2024 6:14 PM [facility] eGFR 57(L) >=60 mL/min/1. 73m2 LAB CHEMISTRY METHOD 10/07/2024 6:14 PM [facility] Comment:Calculation based on the Chronic Kidney Disease Epidemiology Collaboration (CKD-EPI) equation refit without adjustment for race. BUN/Creatinine Ratio 27.1 LAB CHEMISTRY METHOD 10/07/2024 6:14 PM T [facility] Calcium 9.4 8.5 - 10.5 mg/dL LAB CHEMISTRY METHOD 10/07/2024 6:14 PM [facility] AST (SGOT) 22 10 - 42 unit/L LAB CHEMISTRY METHOD 10/07/2024 6:14 PM T [facility] ALT (SGPT) 23 10 - 60 unit/L LAB CHEMISTRY METHOD 10/07/2024 6:14 PM [facility] Alkaline Phosphatase 77 42 - 121 unit/L LAB CHEMISTRY METHOD 10/07/2024 6:14 PM [facility] Total Protein 8.0 6.0 - 8.0 g/dL LAB CHEMISTRY METHOD 10/07/2024 6:14 PM [facility] Albumin 3.8 3.2 - 5.0 g/dL LAB CHEMISTRY METHOD 10/07/2024 6:14 PM [facility] Total Bilirubin 0.5 0.0 - 1.4 mg/dL LAB CHEMISTRY METHOD 10/07/2024 6:14 PM [facility] Blood Venous blood specimen / Unknown Venipuncture / Unknown 10/07/2024 5:19 PM EDT 10/07/2024 5:31 PM EDT us Lilian Parks DO LAB BLOOD ORDERABLES Elenita l Result [facility] [address] [place] [address], * SCR MAMMO BI INCL CAD (09/02/2017 [...] reviewed with CAD and compared to previous. The breasts are composed of fatty and fibroglandular tissue. 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 Care Teams Plastics Technician Relationship Specialty Start Date End Date Henrique Soler MD [address] [place] [address] Dr [address] [place], [place] PCP - General Internal Medicine 06/18/14
== END 2024-12-31 14:26 | disposition home or self-care (01) ==
PROVIDERS: PCP Internal Medicine; Visit Provider Internal Medicine
DX: R42 Dizziness and giddiness (principal); M25.551 Pain in right hip; M47.816 Spondylosis without myelopathy or radiculopathy, lumbar region; J45.30 Mild persistent asthma, uncomplicated; G43.909 Migraine, unspecified, not intractable, without status migrainosus; M79.7 Fibromyalgia; M75.102 Unspecified rotator cuff tear or rupture of left shoulder, not specified as traumatic; M12.812 Other specific arthropathies, not elsewhere classified, left shoulder; M17.0 Bilateral primary osteoarthritis of knee; J30.9 Allergic rhinitis, unspecified; K21.9 Gastro-esophageal reflux disease without esophagitis; E55.9 Vitamin D deficiency, unspecified

== ENCOUNTER → 2024-12-31 13:30 | Outpatient (BNVA) | payer OTHER, SELFPAY | PROVIDERS: PCP Internal Medicine; Visit Provider Internal Medicine | DX: R42 Dizziness and giddiness (principal); M25.551 Pain in right hip; M47.816 Spondylosis without myelopathy or radiculopathy, lumbar region; J45.30 Mild persistent asthma, uncomplicated; G43.909 Migraine, unspecified, not intractable, without status migrainosus; M79.7 Fibromyalgia; M75.102 Unspecified rotator cuff tear or rupture of left shoulder, not specified as traumatic; M12.812 Other specific arthropathies, not elsewhere classified, left shoulder; M17.0 Bilateral primary osteoarthritis of knee; J30.9 Allergic rhinitis, unspecified; K21.9 Gastro-esophageal reflux disease without esophagitis; E55.9 Vitamin D deficiency, unspecified; E53.8 Deficiency of other specified B group vitamins; G47.00 Insomnia, unspecified; F41.9 Anxiety disorder, unspecified; F32.9 Major depressive disorder, single episode, unspecified; E66.9 Obesity, unspecified; Z68.36 Body mass index [BMI] 36.0-36.9, adult | CPT/HCPCS: 96127; 99212 ==

== ENCOUNTER 2025-01-06 06:29 | Outpatient (REF) | payer OTHER, SELFPAY ==
--- OUTSIDE RECORDS SUMMARY | 2025-01-06 06:32 | XMS_ITS | Clinical Summary ---
Author Organization [facility] Address [address] [place] [address] Care Team Providers Care Dedicated Owner Operator Name Role Phone Henrique Soelr MD Primary Care Provider Unava ilable Allergies Active Allergy Reactions Severity Noted Date Comments Codeine Rash/Dermatitis 07/10/2015 Kdc:Propoxyphene+[place] Blue Fcf Rash/Dermatitis 07/10/2015 Ibuprofen Rash/Dermatitis 07/10/2015 Ndgoeoeioo-Pplwfsqojz-Dzxpmymyvd Rash/Dermatitis 07/10/2015 Apap-Fd&C Red #40 [place]-Oxycodone Rash/Dermatitis 07/10/2015 Montelukast 07/18/2015 Tylenol With Codeine Rash/Dermatitis 07/10/2015 Acetaminophen Extra Strength Rash/Dermatitis Tramadol Rash/Dermatitis 07/10/2015 Medications Medication Sig Dispensed Refills Start Date End Date Status lorazepam (ATIVAN) 0.5 MG tablet Take 0.5 mg by mouth every 6 hours as needed. 0 Active Albuterol Sulfate (PROAIR HFA IN) Inhale into the lungs as needed. 0 Active Cholecalciferol (VITAMIN D3) 5000 UNITS Cap Take by mouth. Takes 1 weekly 0 Active nortriptyline (PAMELOR) 25 MG capsule Take 25 mg by mouth 2 times daily. 0 Active BuPROPion HCl (BUDEPRION SR OR) Take by mouth. 0 Act anna citalopram (CELEXA) 10 MG tablet Take 10 mg by mouth daily. 0 Active tizanidine (ZANAFLEX) 4 MG tablet Take 1 Tab by mouth every 6 hours as needed for Muscle spasms (muscle spasms). 120 Tab 5 07/18/2015 Active omeprazole (PRILOSEC) 20 MG capsule Take 1 Cap by mouth daily. 30 Cap 5 07/18/2015 Active topiramate (TOPAMAX) 25 MG capsule Take 25 mg by mouth 2 times daily. 0 Active pregabalin (LYRICA) 100 MG capsuleIndications:Fib romyalgia Take 1 Cap by mouth 2 times daily. 60 Cap 11 09/13/2015 Active loratadine (CLARITIN) 10 MG tablet Take 10 mg by mouth daily. 0 Active meloxicam (MOBIC) 15 MG tablet Take 15 mg by mouth daily. 0 Active Active Problems Problem Noted Date Thumb pain, right 08/26/2017 Last Assessment & Plan: 08/26/2017 - depo-medrol 20 mg injection Primary osteoarthritis of hand 8 Fibromyalgia Vitamin D deficiency GERD (gastroesophageal reflux disease) Anxiety Depression Family History Medical History Relation Name Comments [place] Breast Negative Hx Social History Tobacco Use Types Packs/Day Years Used Date Smoking Tobacco: Never Cigarettes Smokeless Tobacco: Never Alcohol Use Standard Drinks/Week Comments Yes 0 (1 standard drink = 0.6 oz pur e alcohol) holidays Sex Assigned at Date Recorded Not on file Last Filed Vital Signs Vital Sign Reading Time Taken Comments Blood Pressure 110/74 07/10/2018 12:54 PM EST Pulse 80 07/10/2018 12:54 PM EST Temperature 36.7 C (98 F) 09/10/2015 2:11 PM EST Respiratory Rate 16 07/10/2018 12:5 4 PM EST Oxygen Saturation 97% 09/10/2015 2:11 PM EST Inhaled Oxygen Concentration - - Weight 100.4 kg (221 lb 6.4 oz) 019 12:54 PM EST Height 170.2 cm (5' 7 ) 07/10/2018 12:5 4 PM EST Body Mass Index 34.68 07/10/2018 12:54 PM EST Plan of Treatment Health Maintenance Due Date Last Done Comments Covid-19 Vaccine (#1) 07/01/1956 DTAP/TDAP/TD (1 - Tdap) 12/31/1975 COLON CANCER SCREEN WITH STO OL CARD 2006 SHINGLES VACCINE (1 of 2) 2006 MAMMOGRAM 09/02/2018 09/02/2017, 01/2017, 08/11/2015 DEPRESSION SCREEN 07/10/2019 07/10/2018 (Completed) CHOLESTEROL SCREENING 07/18/2020 07/18/2015 BONE DENSITY SCREENING 2021 08/11/2015 PNEUMOCOCCAL VACCINE (1 - PCV) 2021 BMI CHECK/ADVISE 07/07/2024 07/10/2018, 10/2018 (Completed), 10/09/2016, Additional history exists INFLUENZA (#1) 2025 07/10/2018 (Completed) HEPATITIS C SCREENING Completed 07/18/2015 Care Teams Dedicated Owner Operator Relationship Specialty Start Date End Date Henrique Soler MD PCP - General Internal Medicine 04/01/18
--- OUTSIDE RECORDS SUMMARY | 2025-01-06 06:32 | XMS_ITS | Clinical Summary ---
Author Organization [facility] Address [address] [place] [phone] Phone Care Team Providers Care Mechatronics Technician Name Role Phone Henrique Soler MD Primary Care Provider [phone] Allergies Active Allergy Reactions Criticality Noted Date [...] - 11/25/2024 3:42 PM EDT Hospital Encounter [facility] [address] [place] [phone] Christophe Hilton MD Neenan, Kevin P, DO Bukalo, Nermina, MD Bell, Alistair A, MD Fall, initial encounter (Primary Dx); Acute cystitis without hematuria; Dizziness Discharge Disposition: Home-Health Care [facility] 11/11/2024 12:50 PM EDT - 11/13/2024 5:06 PM EDT Hospital Encounter [facility] [address] [place] [phone] Man Cornelius, Tyshawn Edwards MD Santoyo-Pacheco, Omar D, MD Dizziness (Primary Dx) Discharge Disposition: Home-Health Care Svc 11/09/2024 6:15 PM EDT - 11/10/2024 12:29 AM EDT Emergency [facility] Emergency [address] [place] [phone] Acute cystitis without hematuria (Primary Dx); Dizziness Discharge Disposition: Home or Self Care 10/07/2024 6:14 PM EDT - 10/08/2024 1:34 AM EDT Emergency [facility] Emergency [address] [place] [phone] Viral gastroenteritis (Primary Dx) Discharge Disposition: Home [...] LAB HEMETOLOGY METHOD 11/25/2024 7:10 AM EDT [facility] RBC 4.60 3.80 - 4.80 M/mcL LAB HEMETOLOGY METHOD 11/25/2024 7:10 AM EDT [facility] Hemoglobin 13.2 11.5 - 16.0 g/dL LAB HEMETOLOGY METHOD 11/25/2024 7:10 AM EDT [facility] Hematocrit 42.1 35.0 - 47.0 % LAB HEMETOLOGY METHOD 11/25/2024 7:10 AM EDT [facility] MCV 91.1 79.0 - 98.0 FL LAB HEMETOLOGY METHOD 11/25/2024 7:10 AM EDT [facility] MCH 28.6 27.0 - 32.0 pcg LAB HEMETOLOGY METHOD 11/25/2024 7:10 AM EDT [facility] MCHC 31.4(L) 32.0 - 37.0 g/dL LAB HEMETOLOGY METHOD 11/25/2024 7:10 AM EDT [facility] RDW 14.6 11.0 - 15.0 % LAB HEMETOLOGY METHOD 11/25/2024 7:10 AM EDT [facility] Platelets 190 130 - 400 K/mcL LAB HEMETOLOGY METHOD 11/25/2024 7:10 AM EDT [facility] MPV 12.2(H) 7.0 - 11.0 FL LAB HEMETOLOGY METHOD 11/25/2024 7:10 AM EDT [facility] NRBC 0.0 <1.0 % LAB HEMETOLOGY METHOD 11/25/2024 7:10 AM EDT [facility] NRBC Absolute 0.00 <0.10 K/mcL LAB HEMETOLOGY METHOD 11/25/2024 7:10 AM EDT [facility] Blood Venous blood specimen / Unknown Venipuncture / Unknown 11/25/2024 6:03 AM EDT 11/25/2024 6:49 AM EDT us Cindy Perez MD LAB BLOOD ORDERABLES Final Res ult [facility] [address] [place] [address], * (ABNORMAL) Basic metabolic panel (11/25/2024 6:03 AM EDT) Only the most recent of5 resultswithin the time period is included. Sodium 139 133 - 145 mmol/L LAB CHEMISTRY METHOD 11/25/2024 7:26 AM [facility] Potassium 4.2 3.5 - 5.5 mmol/L LAB CHEMISTRY METHOD 11/25/2024 7:26 AM [facility] Chloride 108 96 - 110 mmol/L LAB CHEMISTRY METHOD 11/25/2024 7:26 AM [facility] CO2 27 21 - 32 mmol/L LAB CHEMISTRY METHOD 11/25/2024 7:26 AM [facility] Anion Gap 4 3 - 11 LAB CHEMISTRY METHOD 11/25/2024 7:26 AM [facility] Glucose 172(H) 70 - 100 mg/dL LAB CHEMISTRY METHOD 11/25/2024 7:26 AM [facility] BUN 14 5 - 25 mg/dL LAB CHEMISTRY METHOD 11/25/2024 7:26 AM [facility] Creatinine 0.91 0.50 - 1.10 mg/dL LAB CHEMISTRY METHOD 11/25/2024 7:26 AM [facility] eGFR 69 >=60 mL/min/1. 73m2 LAB CHEMISTRY METHOD 11/25/2024 7:26 AM [facility] Comment:Calculation based on the Chronic Kidney Disease Epidemiology Collaboration (CKD-EPI) equation refit without adjustment for race. BUN/Creatinine Ratio 15.4 LAB CHEMISTRY METHOD 11/25/2024 7:26 AM [facility] Calcium 8.5 8.5 - 10.5 mg/dL LAB CHEMISTRY METHOD 11/25/2024 7:26 AM [facility] Blood Venous blood specimen / Unknown Venipuncture / Unknown 11/25/2024 6:03 AM EDT 11/25/2024 6:49 AM EDT Cindy Perez MD LAB BLOOD ORDERABLES Final Res ult Performing Organization Address [facility]/ZIP Co de Phone Number [facility] [address] [place] [address], [place] [phone] * (ABNORMAL) Valproic acid level, total (11/24/2024 7:37 PM EDT) Only the most recent of2 resultswithin the time period is included. [facility] Valproic Acid, Total <3(L) 50 - 100 mcg/mL LAB CHEMISTRY METHOD 11/24/2024 8:30 PM EDT [facility] Blood Venous blood specimen / Unknown Venipuncture / Unknown 11/24/2024 7:37 PM EDT 11/24/2024 8:01 PM EDT Lilli GREENWOOD LAB BLOOD ORDERABLES Final Result Performing Organization Address [facility] Co de Phone Number [facility] [address] [place] [address], [place] [phone] * (ABNORMAL) Urinalysis with reflex microscopic and culture (11/24/2024 6:03 PM EDT) Only the most recent of4 resultswithin the time period is included. [facility] [place] Urine 1.021 1.003 - 1.030 LAB URINALYSIS - AUTOMATED METHOD 11/24/2024 6:33 PM EDT [facility] pH, Urine 5.5 5.0 - 8.0 pH LAB URINALYSIS - AUTOMATED METHOD 11/24/2024 6:33 PM EDT [facility] Leukocytes, Urine Trace(A) Negative LAB URINALYSIS - AUTOMATED METHOD 11/24/2024 6:33 PM EDT [facility] Nitrite, Urine Positive(A) Negative LAB URINALYSIS - AUTOMATED METHOD 11/24/2024 6:33 PM EDT [facility] Protein, Urine Negative <=Trace mg/dL LAB URINALYSIS - AUTOMATED METHOD 11/24/2024 6:33 PM [facility] Glucose, Urine Negative Negative mg/dL LAB URINALYSIS - AUTOMATED METHOD 11/24/2024 6:33 PM [facility] Ketones, Urine Negative Negative mg/dL LAB URINALYSIS - AUTOMATED METHOD 11/24/2024 6:33 PM [facility] Urobilinogen , Urine 0.2 0.2 - 1.0 mg/dL LAB URINALYSIS - AUTOMATED METHOD 11/24/2024 6:33 PM [facility] Bilirubin, Urine Negative Negative LAB URINALYSIS - AUTOMATED METHOD 11/24/2024 6:33 PM [facility] Blood, Urine Trace(A) Negative LAB URINALYSIS - AUTOMATED METHOD 11/24/2024 6:33 PM [facility] RBC, Urine 2.6 0 - 4 /HPF LAB URINALYSIS - AUTOMATED METHOD 11/24/2024 6:33 PM [facility] WBC, Urine 7.6(H) 0 - 4 /HPF LAB URINALYSIS - AUTOMATED METHOD 11/24/2024 6:33 PM [facility] Squamous Epithelial, Urine 36 0 - 60 /LPF LAB URINALYSIS - AUTOMATED METHOD 11/24/2024 6:33 PM [facility] Bacteria, Urine Many(A) Negative /HPF LAB URINALYSIS - AUTOMATED METHOD 11/24/2024 6:33 PM [facility] Hyaline Casts, Urine 4.4(H) 0 - 3 /LPF LAB URINALYSIS - AUTOMATED METHOD 11/24/2024 6:33 PM [facility] Urine Urinary bladder structure / Unknown Non-blood Collection / Unknown 11/24/2024 6:03 PM EDT 11/24/2024 6:16 PM EDT Lilli Advaction [facility] LAB URINE ORDERABLES Final Result Performing Organization Address [facility]/ZIP Nj de Phone Number [facility] [address] [place] [address], [place] [phone] * Mercedes urine culture tube (11/24/2024 6:03 PM EDT) Only the most recent of5 resultswithin the time period is included. Pathologist [facility] Extra Tube Hold for add-ons. 11/24/2024 8:01 PM EDT [facility] Comment:Auto resulted. Urine Urinary bladder structure / Unknown Non-blood Collection / Unknown 11/24/2024 6:03 PM EDT 11/24/2024 6:16 PM EDT [facility] URINE ORDERABLES Final Result Performing Organization Address [facility] de Phone Number [facility] [address] [place] [address], [place] [phone] * (ABNORMAL) Culture urine (11/24/2024 6:03 PM EDT) Only the most recent of4 resultswithin the time period is included. Pathologist [facility] Culture, Urine 50,000-100,000 CFU/mL Escherichia coli(A) SCOTT 11/27/2024 9:48 AM EDT [facility] Comment: The organism value for this [...] LAB MICROBIOLOGY - GENERAL ORDERABLES Final Result [facility] ([facility] [address] [place] [address], * CT Head wo Contrast (11/24/2024 4:03 PM EDT) Anatomical Region Laterality Modality Head and Neck Computed Tomogra phy 11/24/2024 4:12 PM EDT Impressions 11/24/2024 4:17 PM EDT NO ACUTE INTRACRANIAL ABNORMALITY. -------- FINAL REPORT -------- Dictated By: Jake Chambers Dictated Date: 11/24/2024 16:12 ET Assigned Physician: Jake Chambers Reviewed and Electronically Signed By: Jake Chambers Signed Date: 11/24/2024 16:17 ET Workstation ID: [id number] Transcribed By: Self Edit Transcribed Date: 11/24/2024 [...] Signed Date: 11/24/2024 16:17 ET Workstation ID: [id number] Transcribed By: Self Edit Transcribed Date: 11/24/2024 [...] Signed Date: 11/24/2024 15:37 ET Workstation ID: [id number] Transcribed By: Self Edit Transcribed Date: 11/24/2024 15:30 ET Narrative 11/24/2024 3:37 PM EDT History: Pelvic fracture Technique: Volumetric imaging through the pelvis without IV contrast obtained in a [employer] light speed VCT scanner. Dose reduction techniques [...] Signed Date: 11/24/2024 15:37 ET Workstation ID: [id number] Transcribed By: Self Edit Transcribed Date: 11/24/2024 [...] Signed Date: 11/24/2024 12:48 ET Workstation ID: [id number] Transcribed By: Self Edit Transcribed Date: 11/24/2024 [...] Normalalignment. -------- FINAL REPORT -------- Dictated By: aJke Chambers Dictated Date: 11/24/2024 12:47 ET Assigned Physician: Jake Chambers Reviewed and Electronically Signed By: Jake Chambers Signed Date: 11/24/2024 12:48 ET Workstation ID: [id number] Transcribed By: Self Edit Transcribed Date: 11/24/2024 [...] GEMUSE QTc 447 ms GEMUSE P Wave [place] 44 degrees GEMUSE R [place] -9 degrees GEMUSE T [place] 28 degrees GEMUSE ECG Interpretation Normal sinus [...] LAB HEMETOLOGY METHOD 11/24/2024 12:48 PM EDT [facility] RBC 4.90(H) 3.80 - 4.80 M/mcL LAB HEMETOLOGY METHOD 11/24/2024 12:48 PM EDT [facility] Hemoglobin 14.0 11.5 - 16.0 g/dL LAB HEMETOLOGY METHOD 11/24/2024 12:48 PM EDT [facility] Hematocrit 43.8 35.0 - 47.0 % LAB HEMETOLOGY METHOD 11/24/2024 12:48 PM EDT [facility] MCV 90.3 79.0 - 98.0 FL LAB HEMETOLOGY METHOD 11/24/2024 12:48 PM EDT [facility] MCH 28.9 27.0 - 32.0 pcg LAB HEMETOLOGY METHOD 11/24/2024 12:48 PM EDT [facility] MCHC 32.0 32.0 - 37.0 g/dL LAB HEMETOLOGY METHOD 11/24/2024 12:48 PM EDT [facility] RDW 14.5 11.0 - 15.0 % LAB HEMETOLOGY METHOD 11/24/2024 12:48 PM EDT [facility] Platelets 205 130 - 400 K/mcL LAB HEMETOLOGY METHOD 11/24/2024 12:48 PM EDT [facility] MPV 12.3(H) 7.0 - 11.0 FL LAB HEMETOLOGY METHOD 11/24/2024 12:48 PM EDT [facility] NRBC 0.0 <1.0 % LAB HEMETOLOGY METHOD 11/24/2024 12:48 PM EDT [facility] NRBC Absolute 0.00 <0.10 K/mcL LAB HEMETOLOGY METHOD 11/24/2024 12:48 PM EDT [facility] Neutrophils Relative 30.5 % LAB HEMETOLOGY METHOD 11/24/2024 12:48 PM [facility] Lymphocytes Relative 55.5 % LAB HEMETOLOGY METHOD 11/24/2024 12:48 PM [facility] Monocytes Relative 10.6 % LAB HEMETOLOGY METHOD 11/24/2024 12:48 PM [facility] Eosinophils Relative 2.6 % LAB HEMETOLOGY METHOD 11/24/2024 12:48 PM [facility] Basophils Relative 0.6 % LAB HEMETOLOGY METHOD 11/24/2024 12:48 PM [facility] Immature Granulocytes Relative 0.2 % LAB HEMETOLOGY METHOD 11/24[facility]2024 12:[facility] Neutrophils Absolute 1.52 1.50 - 7.00 K/mcL LAB HEMETOLOGY METHOD 11/24/2024 12:48 PM EDT [facility] Lymphocytes Absolute 2.77 1.00 - 5.00 K/mcL LAB HEMETOLOGY METHOD 11/24/2024 12:48 [facility] Monocytes Absolute 0.53 0.20 - 1.00 K/mcL LAB HEMETOLOGY METHOD 11/24/2024 12:48 PM EDT [facility] Eosinophils Absolute 0.13 0.00 - 0.50 K/mcL LAB HEMETOLOGY METHOD 11/24/2024 12:48 PM EDT [facility] Basophils Absolute 0.03 0.00 - 0.20 K/[facility] LAB HEMETOLOGY METHOD 11/24/2024 12:48 PM EDT [facility] Immature Granulocytes Absolute 0.01 0.00 - 0.03 K/[facility] LAB HEMETOLOGY METHOD 11/24/2024 12:48 PM EDT [facility] Blood Venous blood specimen / Unknown Venipuncture / Unknown 11/24/2024 11:29 AM EDT 11/24/2024 12:31 PM EDT us Christophe Hilton MD LAB BLOOD ORDERABLES Final Resu lt [facility]) [facility] [address] [place] [address], [place] [phone] * MR Brain wo Contrast (11/12/2024 4:40 [...] Signed Date: 11/12/2024 17:10 ET Workstation ID: [id number] Transcribed By: Self Edit Transcribed Date: 11/12/2024 [...] Signed Date: 11/12/2024 17:10 ET Workstation ID: [id number] Transcribed By: Self Edit Transcribed Date: 11/12/2024 16:57 ET us Jojo GERENWOOD IM MRI PROCEDURES Final Resu lt * (ABNORMAL) Lipid panel with reflex to direct LDL (11/12/2024 6:15 AM EDT) Cholesterol 203(H) 0 - 200 mg/dL LAB CHEMISTRY METHOD 11/12/2024 8:03 AM EDT [facility] Triglycerides 80 0 - 150 mg/dL LAB CHEMISTRY METHOD 11/12/2024 8:03 AM EDT [facility] HDL 71 >=40 mg/dL LAB CHEMISTRY METHOD 11/12/2024 8:03 AM EDT [facility] LDL Calculated 116(H) 0 - 100 mg/dL LAB CHEMISTRY METHOD 11/12/2024 8:03 AM EDT [facility] VLDL Cholesterol Randy 16 mg/dL LAB CHEMISTRY METHOD 11/12/2024 8:03 AM EDT [facility] Non HDL Chol. (LDL+VLDL) 132 <145 mg/dL LAB CHEMISTRY METHOD 11/12/2024 8:03 AM EDT [facility] Chol/HDL Ratio 2.9 0.0 - 4.4 LAB CHEMISTRY METHOD 11/12/2024 8:03 AM EDT [facility] Blood Venous blood specimen / Unknown Venipuncture / Unknown 11/12/2024 6:15 AM EDT 11/12/2024 6:58 AM EDT us Jojo GREENWOOD LAB BLOOD ORDERABLES Final Re sult Performing Organization Address City/[facility]/ZIP Co de Phone Number [facility] [address] [place] [address], [place] [phone] * Magnesium (11/12/2024 6:15 AM EDT) Only the most recent of4 resultswithin the time period is included. Magnesium 1.9 1.9 - 2.6 mg/dL LAB CHEMISTRY METHOD 11/12/2024 8:03 AM EDT [facility] Blood Venous blood specimen / Unknown Venipuncture / Unknown 11/12/2024 6:15 AM EDT 11/12/2024 6:58 AM EDT Jojo GREENWOOD LAB BLOOD ORDERABLES Final Re sult [facility] [address] [place] [address], * CT Angio Head/Neck wo and/or w [...] Signed Date: 11/11/2024 16:54 ET Workstation ID: [id number] Transcribed By: Self Edit Transcribed Date: 11/11/2024 [...] Omnipaque 370 injected. Scan was analyzed using valuescope Contact AI based computer aided triage software. [...] left ELENA. Vertebrobasilar system is patent. Proximal butcher apprentice are patent. Major dural venous sinuses opacify normally with contrast. Extracranial structures are unremarkable. Degenerative changes in the bones. Procedure Note Jake Chambers MD - 11/11/2024 PROCEDURE: CTA HEAD AND NECK INDICATION: Neuro deficit, acute, stroke suspected TECHNIQUE: CTA of the head and neck with intravenous contrast. Multiplanarreformats. The examination was performed utilizing dose reductiontechniques.3-D or MIP images were produced with postprocessing on [employer] computer workstation. 90cc Omnipaque 370 injected. Scan [...] left ELENA. Vertebrobasilar system is patent. Proximal butcher apprentice are patent. Major dural venous sinuses opacify normally with contrast. Extracranial structures are unremarkable. Degenerative changes in thebones. IMPRESSION: NO ACUTE ABNORMALITY. -------- FINAL REPORT -------- Dictated By: Jake Chambers Dictated Date: 11/11/2024 16:51 ET Assigned Physician: Jake Chambers Reviewed and Electronically Signed By: Jake Chambers Signed Date: 11/11/2024 16:54 ET Workstation ID: [id number] Transcribed By: Self Edit Transcribed Date: 11/11/2024 16:51 ET Man Cornelius DO IMG CT PROCEDURES Final Result * (ABNORMAL) Urinalysis with reflex microscopic (11/11/2024 3:03 PM EDT) Specific [place] Urine 1.019 1.003 - 1.030 LAB URINALYSIS - AUTOMATED METHOD 11/11/2024 3:44 PM [facility] pH, Urine 6.0 5.0 - 8.0 pH LAB URINALYSIS - AUTOMATED METHOD 11/11/2024 3:44 PM [facility] Leukocytes, Urine Trace(A) Negative LAB URINALYSIS - AUTOMATED METHOD 11/11/2024 3:44 PM [facility] Nitrite, Urine Negative Negative LAB URINALYSIS - AUTOMATED METHOD 11/11/2024 3:44 PM [facility] Protein, Urine Negative <=Trace mg/dL LAB URINALYSIS - AUTOMATED METHOD 11/11/2024 3:44 PM [facility] Glucose, Urine Negative Negative mg/dL LAB URINALYSIS - AUTOMATED METHOD 11/11/2024 3:44 PM [facility] Ketones, Urine Trace(A) Negative mg/dL LAB URINALYSIS - AUTOMATED METHOD 11/11/2024 3:44 PM [facility] Urobilinogen, Urine 0.2 0.2 - 1.0 mg/dL LAB URINALYSIS - AUTOMATED METHOD 11/11/2024 3:44 PM [facility] Bilirubin, Urine Negative Negative LAB URINALYSIS - AUTOMATED METHOD 11/11/2024 3:44 PM [facility] Blood, Urine Negative Negative LAB URINALYSIS - AUTOMATED METHOD 11/11/2024 3:44 PM [facility] RBC, Urine 3.1 0 - 4 /HPF LAB URINALYSIS - AUTOMATED METHOD 11/11/2024 3:44 PM [facility] WBC, Urine 1.6 0 - 4 /HPF LAB URINALYSIS - AUTOMATED METHOD 11/11/2024 3:44 PM [facility] Squamous Epithelial, Urine 26 0 - 60 /LPF LAB URINALYSIS - AUTOMATED METHOD 11/11/2024 3:44 PM [facility] Bacteria, Urine Negative Negative /HPF LAB URINALYSIS - AUTOMATED METHOD 11/11/2024 3:44 PM EDT [facility] Hyaline Casts, Urine 0.8 0 - 3 /LPF LAB URINALYSIS - AUTOMATED METHOD 11/11/2024 3:44 PM EDT [facility] Urine Urine specimen obtained by clean catch procedure / Unknown Non-blood Collection / Unknown 11/11/2024 3:03 PM EDT 11/11/2024 3:26 PM EDT us Man Cornelius DO LAB URINE ORDERABLES Final Res ult Performing Organization Address [facility]/ZIP Co de Phone Number [facility] [address] [place] [address], [place] [phone] * POCT Glucose, blood (11/11/2024 1:02 PM EDT) Only the most recent of2 resultswithin the time period is included. Glucose POCT 96 70 - 100 mg/dL 11/11/2024 1:03 PM EDT [facility] Blood Capillary blood specimen / Unknown 11/11/2024 1:02 PM EDT 11/11/2024 1:04 PM EDT us Generic Provider Poct LAB POINT OF CARE TEST DOCKED DEVICE UNSOLICITED RESULTS Final Result Performing Organization Address [facility]/ZIP Co de Phone Number [facility] [address] [place] [address], [place] [phone] * (ABNORMAL) Hemoglobin A1c (11/11/2024 12:10 PM EDT) Hemoglobin A1C 6.7(H) <6.5 % LAB CHEMISTRY METHOD 11/11/2024 10:18 PM EDT [facility] Mean Bld Glu Estim. 146 mg/dL LAB CHEMISTRY METHOD 11/11/2024 10:18 PM EDT [facility] Blood Venous blood specimen / Unknown Venipuncture / Unknown 11/11/2024 12:10 PM EDT 11/11/2024 12:17 PM EDT Jojo GREENWOOD LAB BLOOD ORDERABLES Final Re sult Performing Organization Address [facility] Co de Phone Number [facility] [address] [place] [address], [place] [phone] * Troponin I high sensitivity (11/09/2024 8:26 PM EDT) Only the most recent of2 resultswithin the time period is included. [facility] High Sensitivity Troponin I 6 <=54 ng/L LAB CHEMISTRY METHOD 11/09/2024 9:10 PM EDT [facility] Blood Venous blood specimen / Unknown Venipuncture / Unknown 11/09/2024 8:26 PM EDT 11/09/2024 8:33 PM EDT Narrative [facility] - 11/09/2024 9:10 PM EDT High levels of biotin in samples may falsely decrease hsTroponin values. Use caution when interpreting hsTroponin results in patients taking biotin who exhibit renal impairment (eGFR <60) or in patients taking more than 20 mg/day of biotin. Mook Irizarry MD LAB BLOOD ORDERABLES Final Result Performing Organization Address [facility] de Phone Number [facility] [address] [place] [address], [place] [phone] * CT Abdomen Pelvis w Contrast (10/07/2024 [...] Graham MD on 10/07/2024 21:38:17 Jacques [facility] [place] PROCEDURES Final Result * Respiratory virus panel molecular study (10/07/2024 7:07 PM EDT) Adenovirus Detection by PCR Not Detected Not Detected LAB MICROBIOLOGY METHOD 10/07/2024 9:15 PM EDT [facility] Influenza A PCR Not Detected Not Detected LAB MICROBIOLOGY METHOD 10/07/2024 9:15 PM EDT [facility] Influenza B PCR Not Detected Not Detected LAB MICROBIOLOGY METHOD 10/07/2024 9:15 PM EDT [facility] Coronavirus 229E Not Detected Not Detected LAB MICROBIOLOGY METHOD 10/07/2024 9:15 PM EDT [facility] Coronavirus HKU1 Not Detected Not Detected LAB MICROBIOLOGY METHOD 10/07/2024 9:15 PM EDT [facility] Coronavirus OC43 Not Detected Not Detected LAB MICROBIOLOGY METHOD 10/07/2024 9:15 PM EDT [facility] Coronavirus NL63 Not Detected Not Detected LAB MICROBIOLOGY METHOD 10/07/2024 9:15 PM EDT [facility] Parainfluenza Virus 1 Not Detected Not Detected LAB MICROBIOLOGY METHOD 10/07/2024 9:15 PM EDT [facility] Parainfluenza Virus 2 Not Detected Not Detected LAB MICROBIOLOGY METHOD 10/07/2024 9:15 PM EDT [facility] Parainfluenza Virus 3 Not Detected Not Detected LAB MICROBIOLOGY METHOD 10/07/2024 9:15 PM EDT [facility] Parainfluenza Virus 4 Not Detected Not Detected LAB MICROBIOLOGY METHOD 10/07/2024 9:15 PM EDT [facility] RSV PCR Not Detected Not Detected LAB MICROBIOLOGY METHOD 10/07/2024 9:15 PM EDT [facility] Human Metapneumovirus A and B Not Detected Not Detected LAB MICROBIOLOGY METHOD 10/07/2024 9:15 PM EDT [facility] Rhinovirus/Entero virus Not Detected Not Detected LAB MICROBIOLOGY METHOD 10/07/2024 9:15 PM EDT [facility] Bordetella pertussis Not Detected Not Detected LAB MICROBIOLOGY METHOD 10/07/2024 9:15 PM EDT [facility] Bordetella parapertussis Not Detected Not Detected LAB MICROBIOLOGY METHOD 10/07/2024 9:15 PM EDT [facility] Mycoplasma pneumo by PCR Not Detected Not Detected LAB MICROBIOLOGY METHOD 10/07/2024 9:15 PM EDT [facility] Chlamydia pneumoniae Not Detected Not Detected LAB MICROBIOLOGY METHOD 10/07/2024 9:15 PM EDT [facility] SARS COV-2 Not Detected Not Detected LAB MICROBIOLOGY METHOD 10/07/2024 9:15 PM EDT [facility] Swab Both anterior nares / Unknown Non-blood Collection / Unknown 10/07/2024 7:07 PM EDT 10/07/2024 8:01 PM EDT Narrative [facility] - 10/07/2024 9:15 PM EDT Testing was performed using the [employer] Respiratory Pathogen PCR Assay. All results must [...] Onofre Menard MD LAB MICROBIOLOGY - GENERAL TREMONTKadeem [facility] Final Result [facility] [address] [place] [address], * (ABNORMAL) Manual differential (10/07/2024 5:19 PM EDT) Neutrophils % 39.0 % LAB HEMETOLOGY METHOD 10/07/2024 6:37 PM EDT [facility] Lymphocytes % 36.0 % LAB HEMETOLOGY METHOD 10/07/2024 6:37 PM EDT [facility] Reactive Lymphocyte 12.00 % LAB HEMETOLOGY METHOD 10/07/2024 6:37 PM EDT [facility] Monocytes % 10.0 % LAB HEMETOLOGY METHOD 10/07/2024 6:37 PM EDT [facility] Eosinophils % 2.0 % LAB HEMETOLOGY METHOD 10/07/2024 6:37 PM EDT [facility] Basophils % 1.0 % LAB HEMETOLOGY METHOD 10/07/2024 6:37 PM EDT [facility] Neutrophils Absolute Manual 2.73 1.50 - 7.00 K/mcL LAB HEMETOLOGY METHOD 10/07/2024 6:37 PM EDT [facility] Lymphocytes Absolute 2.52 1.00 - 5.00 K/mcL LAB HEMETOLOGY METHOD 10/07/2024 6:37 PM EDT [facility] Reactive Lymph Abs Manual 0.84(H) 0.00 - 0.00 lym LAB HEMETOLOGY METHOD 10/07/2024 6:37 PM EDT [facility] Monocytes Absolute Manual 0.70 0.20 - 1.00 K/mcL LAB HEMETOLOGY METHOD 10/07/2024 6:37 PM EDT [facility] Eosinophils Absolute Manual 0.14 0.00 - 0.50 K/mcL LAB HEMETOLOGY METHOD 10/07/2024 6:37 PM EDT [facility] Basophils Absolute Manual 0.07 0.00 - 0.20 K/[facility] LAB HEMETOLOGY METHOD 10/07/2024 6:37 PM EDT [facility] Rbc Morphology Consistent with indices Consistent with indices, Normal for [place] LAB HEMETOLOGY METHOD 10/07/2024 6:37 PM EDT [facility] Platelet Morphology - WAM See Note(A) Normal LAB HEMETOLOGY METHOD 10/07/2024 6:37 PM EDT [facility] Comment:PLT: Normal Blood Venous blood specimen / Unknown Venipuncture / Unknown 10/07/2024 5:19 PM EDT 10/07/2024 5:31 PM EDT us Lilian Parks DO LAB BLOOD ORDERABLES Elenita l Result [facility] [address] [place] [address], * Lipase (10/07/2024 5:19 PM EDT) Lipase 30 13 - 75 unit/L LAB CHEMISTRY METHOD 10/07/2024 5:56 PM EDT [facility] Blood Venous blood specimen / Unknown Venipuncture / Unknown 10/07/2024 5:19 PM EDT 10/07/2024 5:31 PM EDT us Lilian Parks DO LAB BLOOD ORDERABLES Elenita l Result [facility] [address] [place] [address], * (ABNORMAL) Comprehensive metabolic panel (10/07/2024 5:19 [...] METHOD 10/07/2024 6:14 PM [facility] eGFR 57(L) >=60 mL/min/1. 73m2 LAB CHEMISTRY METHOD 10/07/2024 6:14 PM [facility] Comment:Calculation based on the Chronic Kidney Disease Epidemiology Collaboration (CKD-EPI) equation refit without adjustment for race. 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 Care Teams Mechatronics Technician Relationship Specialty Start Date End Date Henrique Soler MD [address] [place] [address] Dr [address] [place], [place] PCP - General Internal Medicine 06/18/14
--- OUTSIDE RECORDS SUMMARY | 2025-01-06 06:32 | XMS_ITS | Data Portability ---
Author Organization [employer], [facility] Address [address] [place] [address] Care Team Providers Care Etl Tester Name Role Phone HIM CCA OTHER [employer] Primary Care Provider [phone] Assessment Encounter Date Assessment Date Assessment LastModified by Organization Details LastModified Time 10/22/2023 10/22/2023 I provided real -time medical direction via phone for this encounter and was available for additional phone-based assistance as needed. I have reviewed and agree with the Assessment and Plan as documented by the Ornamental Metal Worker Apprentice. Patient given the opportunity to ask questions. Our service contacted for an assessment of: Urinary symptoms As per above, patient with approximately 24 hours of dysuria, frequency. No history of frequent urinary tract infections. Denies fever, chills, abdominal pain, back pain, flank pain. Per can handler on the scene, Vital signs are stable [...] We discussed the need to seek care urgently/emergentl y in the setting of any new or worsening serious symptoms, particularly fever chills Not available 10/22/2023 21:24:28 11/16/2024 11/16/2024 I provided real -time medical direction via phone for this encounter and was available for additional phone-based assistance as needed. I have reviewed and agree with the Assessment and Plan as documented by the Ornamental Metal Worker Apprentice. Patient given the opportunity to ask questions. Our service contacted for an assessment of: dizziness As per above, patient with a history of dizziness. Calls this service as she would like a dose of meclizine. She has not heard back from her PCP's office to refill her prescription. She normally takes it 3 times daily at a 25 mg tablet. She anticipates getting the medicine refilled tomorrow morning. She denies chest pain, shortness of breath, CUMMINGS. She denies any upper airway symptoms. She is recently discharged from the hospital on the for urinary tract infection is taking antibiotics but does not feel like that is contributing to her symptoms. She was given meclizine while in the hospital but it was not prescribed at discharge and she was surprised she was out of the medication. Per can handler on the scene, Vital signs are stable patient is afebrile. Patient is nontoxic and a good historian of events. Per can handler on the scene she has a nonfocal neuro exam. Impression: Dizziness and vertigo Plan: meclizine dispensed x1. Advised when to recall this service. Patient's primary care on board to renew prescription and anticipate that will be filled within the next 24 hours. Allergies: Reviewed PCP f/u: We discussed the diagnostic uncertainty of home visits and the risk associated with this. In this case, the patient and I felt this to be an acceptable and reasonable amount of risk given the benefit of avoiding an ED visit. We discussed the need to seek care urgently/emergentl y in the setting of any new or worsening serious symptoms, particularly fever chills lightheadedness altered mental status Not available 11/16/2024 19:43:06 Plan of Treatment Reminders Order Date Submit Date Provider Last Modified By Organization Details Last Modified Time Details Appointments None recorded . Lab urinalys is, dipstick 2023 024 [facility], [address] [place] [address], [id number] 4 09:18:24 culture, urine 2023 024 [email or web address] [facility] (Centralized Electronic Ordering - All Locations), Patient Can Go To The Location Of Their Choice, [id number] 4 09:55:32 urinalys is, dipstick 2023 024 [facility], [address] [place] [address], [id number] 09:18:51 Referral None recorded . Procedures None recorded . Surgeries None recorded . Imaging None recorded . Medication Orders meclizin e 25 mg tablet 2024 025 [email or web address] [facility]/Pharmacy #[id number], [address] [place], [address], 5 18:19:50 meclizin e 25 mg tablet 2024 025 [employer] [id number], [address], [place], [id number], 5 18:19:56 meclizin e 25 mg tablet 2024 025 [email or web address] [facility]/Pharmacy #[id number], [address] [place], [address], 5 18:23:15 levoflox acin 500 mg tablet 2023 024 [facility], [address] [place], [address], 4 21:23:53 lactated Ringers intraven ous solution 2022 023 [email or web address], [address] [place], [address], 3 12:22:06 Patient TargetsNo targets recorded. Patient InstructionsNo instructions recorded. Reason for Referral None Reported. Results Created Date Observation Date Name Description Value Unit Range Abnormal Flag Note LastModifiedBy Organization Detail LastModifiedTime 02/24/2002/23/2023 BMP, serum or plasm a BUN 19 Not Available [facility] - [facility] [address], [id number] 02/23/2023 19:45:16 02/24/20 23 02/23/2023 BMP, serum or plasm a CI- 99 Not Available [facility] [address], [address] 02/23/2023 19:45:16 02/24/20 23 02/23/2023 BMP, serum or plasm a CRE 0.7 Not Available [facility] [address], [address] [place] [address] 02/23/2023 19:45:16 02/24/20 23 02/23/2023 BMP, serum or plasm a GLU 162 Not Available [facility] [address], [address] [place] [address] 02/23/2023 19:45:16 02/24/20 23 02/23/2023 BMP, serum or plasm a K+ 4.2 Not Available [facility] [address], [address] [place] [address] 02/23/2023 19:45:16 02/24/20 23 02/23/2023 BMP, serum or plasm a Na+ 139 Not Available [facility] [address], [address] [place] [address] 02/23/2023 19:45:16 02/24/20 23 02/23/2023 BMP, serum or plasm a tCO2 20 Not Available [facility] [address], [address] [place] [address] 02/23/2023 19:45:16 03/01/20 23 03/01/2023 BMP, serum or plasm a BUN 23 Not Available [facility] [address], [address] [place] [address] 03/01/2023 13:31:01 03/01/20 23 03/01/2023 BMP, serum or plasm a CRE 0.7 Not Available [facility] [address], [address] [place] [address] 03/01/2023 13:31:01 03/01/20 23 03/01/2023 BMP, serum or plasm a GLU 131 Not Available [facility] [address], [address] 03/01/2023 13:31:01 03/01/20 23 03/01/2023 BMP, serum or plasm a K+ 4.6 Not Available [facility] [address], [address] [place] [address] 03/01/2023 13:31:01 03/01/20 23 03/01/2023 BMP, serum or plasm a Na+ 140 Not Available [facility] [address], [address] [place] [address] 03/01/2023 13:31:01 03/01/20 23 03/01/2023 BMP, serum or plasm a tCO2 28 Not Available [facility] - [facility] [address], [place], [address] 03/01/2023 13:31:01 Result Notes None recorded. Medical Equipment None Reported. Allergies No known drug allergies Medications Name Sig Start Date Stop Date Status Note LastModified by Organization Details LastModified Time celecoxib 200 mg capsule TAKE 1 CAPSULE BY MOUTH TWICE A DAY active Not Available Not Available No t Available cyclobenzapr ine 10 mg tablet active Not Available Not Available Not Available amoxicillin 500 mg capsule active Not Available Not Available Not Available prednisone 10 mg tablet PLEASE SEE ATTACHED FOR DETAILED DIRECTIONS active Not Available Not Available N ot Available divalproex 250 mg tablet,delay ed release active Not Available Not Available N ot Available trazodone 50 mg tablet TAKE 1 TABLET BY MOUTH AT BEDTIME NEEDED FOR SLEEP active Not Available Not Available No t Available cefpodoxime 200 mg tablet Take 1 [...] Not Available Not Available Not Available divalproex 500 mg tablet,delay ed release TAKE 1 TABLET BY MOUTH TWICE A DAY active Not Available Not Available No t Available bupropion HCl SR 100 mg tablet,12 hr sustained-re lease active Not Available Not Available Not Available pantoprazole 20 mg tablet,delay ed release active Not Available Not Available N ot Available nortriptylin e 25 mg capsule active Not Available Not Available Not Available hydromorphon e 2 mg tablet active Not Available Not Available Not Available lorazepam 0.5 mg tablet TAKE 1 TABLET BY MOUTH TWICE A DAY NEEDED FOR EXTREME ANXIETY active Not Available Not Available No t Available methocarbamo l 750 mg tablet TAKE 1 TABLET BY MOUTH EVERY 6 HOURS NEEDED FOR ANALGESIA. active Not Available Not Available N ot Available dicyclomine 20 mg tablet active Not Available Not Available Not Available meclizine 25 mg tablet Take 1 tablet by mouth every 8 hours as needed for dizziness/v ertigo 2024 active Not Available Not Available Not Avai lable cephalexin 500 mg capsule TAKE 1 CAPSULE BY MOUTH TWICE A DAY FOR 7 DAYS active Not Available Not Available No t Available pantoprazole 40 mg tablet,delay ed release TAKE 1 TABLET BY MOUTH EVERY DAY active Not Available Not Available No t Available buspirone 10 mg tablet active Not [...] Not Available Not Available No t Available cefdinir 300 mg capsule TAKE 1 CAPSULE BY MOUTH 2 TIMES A DAY FOR 5 DAYS. active Not Available Not Available Not Available loratadine 10 mg tablet TAKE 1 TABLET BY MOUTH EVERY DAY NEEDED FOR ALLERGIES active Not Available Not Available No t Available Vitamin B-12 1,000 mcg tablet TAKE 1 TABLET BY MOUTH EVERY DAY active Not Available Not Available No t Available Ventolin HFA 90 mcg/actuatio n aerosol inhaler TAKE 2 PUFFS BY MOUTH EVERY 4 TO 6 HOURS NEEDED active Not Available Not Available No t Available bupropion HCl SR 200 mg tablet,12 hr sustained-re lease TAKE 1 TABLET BY MOUTH TWICE A DAY active Not Available Not Available No t Available cyclobenzapr ine 5 mg tablet active Not Available Not Available Not Available nitrofuranto in monohydrate/ macrocrystal s 100 mg capsule active Not Available Not Available Not Available duloxetine 30 mg capsule,daryl yed release active Not Available Not Available Not Available Nyamyc 100,000 unit/gram topical powder active Not Available Not Available Not Available pregabalin 150 mg capsule TAKE 1 CAPSULE BY MOUTH THREE TIMES A DAY active Not Available Not Available Not Available chlorhexidin e gluconate 0.12 % mouthwash SWISH 15 ML FOR 30 SECONDS THEN SPIT. USE TWICE DAILY (MORNING AND EVENING) AFTER BRUSHING TEETH active Not Available Not Available No t Available sodium fluoride 1.1 % dental paste USE TO BRUSH TEETH TWICE A DAY. RINSE AND SPIT AFTER USE, DO NOT SWALLOW. active Not Available Not Available No t Available ondansetron HCl (PF) 4 mg/2 mL injection solution Take 4 mg by injection route. 2022 active Not Available Not Available Not Avai lable cholecalcife rol (vitamin D3) 50 mcg (2,000 unit) capsule TAKE 1 CAPSULE BY MOUTH EVERY DAY active Not Available Not Available No t Available Belsomra 20 mg tablet TAKE 1 TABLET BY MOUTH EVERYDAY AT BEDTIME active Not Available Not Available No t Available Quviviq 50 mg tablet TAKE 1 TABLET BY MOUTH EVERYDAY AT BEDTIME active Not Available Not Available No t Available Vitals Date Recorded Body weight Body height Body temperature Oxygen saturation Oxygen saturation in Arterial blood by Pulse oximetry Respiratory rate Heart rate Systolic blood pressure Diastolic blood pressure Provider Name and Address Organization Details Last Updated DateTime 4 85845.6 g 152.4 cm 98.4 [degF] 96 % 96 % 14 /min 80 /min 124 mm[Hg] 80 mm[Hg] Not Available [employer] 4 21:21:02 Date Recorded Respiratory rate Body temperature Heart rate Oxygen saturation Oxygen saturation in Arterial blood by Pulse oximetry Systolic blood pressure Diastolic blood pressure Provider Name and Address Organization Details Last Updated DateTime 5 18 /min 97.7 [degF] 71 /min 97 % 97 % 129 mm[Hg] 75 mm[Hg] Not Available [employer] 5 18:20:58 Date Recorded Oxygen saturation Oxygen saturation in Arterial blood by Pulse oximetry Respiratory rate Heart rate Body temperature Systolic blood pressure Diastolic blood pressure Provider Name and Address Organization Details Last Updated DateTime 5 95 % 95 % 16 /min 83 /min 98 [degF] 138 mm[Hg] 98 mm[Hg] Not Available [employer] 5 18:17:10 Date Recorded Body temperature Respiratory rate Heart rate Oxygen saturation Oxygen saturation in Arterial blood by Pulse oximetry Systolic blood pressure Diastolic blood pressure Provider Name and Address Organization Details Last Updated DateTime 3 97.9 [degF] 16 /min 99 /min 97 % 97 % 128 mm[Hg] 78 mm[Hg] Not Available [employer] 3 11:48:04 Date Recorded Body temperature Heart rate Respiratory rate Oxygen saturation Oxygen saturation in Arterial blood by Pulse oximetry Systolic blood pressure Diastolic blood pressure Provider Name and Address Organization Details Last Updated DateTime 3 96.9 [degF] 72 /min 16 /min 100 % 100 % 161 mm[Hg] 90 mm[Hg] Not Available [employer] 3 15:42:48 Social History None recorded. Functional Status None recorded. Mental Status None recorded. Family History Nothing Reported. Medical History No medical history recorded. Gynecological HistoryNo gynecological history recorded. Obstetrics History GPAL:G 0 P 0 0 0 0 Past Encounters Encounter ID Performer Location Encounter Start Date Encounter Closed Date Diagnosis/Indication Diagnosis SNOMED-CT Code Diagnosis ICD10 Code Diagnosis Note [id number] Kesha Beck MD Main - [address] [phone] 02/21/2023 15:44:06 02/22/2023 15:35:21 Dehydration 90730536 E86.[id number] [facility] - [address] [address] 02/23/2023 18:33:42 02/24/2023 07:20:36 Dizziness 656437096 R42 As noted, we were called to see this patient regarding concerns of dizziness/ unsteadine ss. Evaluation in the field was performed by my can handler colleague, as noted above, I provided real-time [...] uncertain etiology, ddx includes hypovolemi a, meds, JOB PRINTER APPRENTICE or PNS process, including focal lesions, neuropathy [...] particular ly falling, confusion, face/arm/l eg weakness. [id number] Madelyn Robertson MD Main - [address] [address] 03/01/2023 13:28:34 03/04/2023 11:06:40 Acute gastroenteritis [id number] K52.9 Evaluation in the field was performed by my can handler colleague, as noted above, I provided real-time [...] shortness of breath, cough, chest pain, fever. [id number] Carmen Pemberton MD Main - [address] [address] 03/02/2023 11:45:43 03/04/2023 11:11:38 Acute gastroenteritis 33885404 K52.9 67 yo w/ gastroente ritis, seen [...] on Friday morning. Questions answered; pt and can handler agreeable with plan [id number] [facility] [address] [place] [address] 04/06/2023 15:42:46 04/07/2023 08:17:20 Syncope and collapse [id number] R55 This 67-year-ol d female has had two episodes of syncope without warning in the past 24 hours. She did hit her head and now complains of head and neck pain. I recommende d that she go to the ER for further evaluation and treatment. The patient resisted this recommenda tion, so I instructed the can handler to try and change her mind. [id number] Alie [facility]illard [facility] [address] [place] [phone] 10/22/2023 21:20:49 10/23/2023 11:15:53 Urinary symptoms [id number] R39.9 [id number] Alie Dillard MD Main - [facility] [address] [place] [phone] 11/16/2024 18:20:56 11/16/2024 21:08:15 Dizziness [id number] R42 [id number] Madelyn Robertson [facility] [address] [place] [phone] 11/20/2024 18:17:08 11/21/2024 18:14:07 Vertigo 025532263 R42 Evaluation in the field was performed by my can handler colleague, as noted above, I provided real-time direction and supervisio n for this visit.This is a 68yo F PMHx vertigo recently admitted to hospital for this and started on meclizine. Endorsing worsenig vertigo sx over past 48 hours despite taking meclizine with fall on buttocks this AM, no head strike or LOC. No focal neurologic symptoms. No recent head trauma. MRI during recent admission w/o stroke VS: unremarkab leParamedi c exam: uncomforta ble appearing lying in bedPOC testing: none Impression : (1) mechanical fall iso dizziness- no injury or need for further work up; (2) ongoing vertigo of unclear etiologyPl an: recommende d ED for PT eval however pt declined, pt feels meclizine is not working because pharmacy gave her a generic, while I do not think this is the case I did send a new rx to a different pharmacy if she would like to try it. Given 25 mg meclizine po during visit. Recommend fall precaution s given high fall risk, pt demonstrat es understand ing. Consider ED eval if vertigo not improving with meclizine as may require work up for other etiologies .Red flags reviewed, pt expressed understand ing For PCP: please call in 72 hours to re-eval symptoms We discussed the diagnostic uncertaint y of [...] shortness of breath, cough, chest pain, fever. Health Concerns Section Related Observation LastModified by Organization Detai ls LastModified Time None Recorded Concern Status LastModified by Organization Details LastModified Time None Recorded Advance Directives Directive None Recorded Payers Insurance Date Sequence Insurance Name Policy Number Policy Maradiaga Covered Member ID Maradiaga Member ID Guarantor Name 11/16/2024 1 [facility] - DOS ON OR AFTER 2022 - DUAL ELIGIBLE - [facility] OPTIONS AND ONE CARE (MEDICARE REPLACEMENT/ADV ANTAGE - HMO) Sabrina Mcqueen [id number] Sabrina Mcqueen Notes Date Note Type Note Provider Name and Address Organization Details Recorded Time 03/02/2023 text/html [facility] Nursing Assessment: Chief Complaints: Abdominal Pain, Pain PMH: COPD/Asthma Allergies: Unknown Comments: Member was evaluated yesterday by [facility] - Reports s/s remain the same and [...] POC bloodwork drawn, unremarkable. [place] [facility] ordered 1L of NS and 4MG of zofran IVP. [facility] sent prescription for Zofran to pt's pharmacy. Pt educated on s/s warranting a 911 call/trip to the hospital. Pt advised to F/U with PCP or [facility] if symptoms persist or worsen. Shreyas TORRES ...................... ...................... ...................... ...................... ...................... ...................... ......... Ornamental Metal Worker Apprentice Note From Man Bolton: Dispatched to the Pt who had been seen multiple times this week, for diarrhea and abd pain. Pt states yesterday morning she started with diarrhea and was given IV fluids. She states she was up all night with it and didn t sleep much at all and it remained this morning. She complains of ULQ pain. She had not attempted any OTC medications. Pt was found laying in bed, CAOx4, airway open and patent. 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 Able to speak in full sentences, -JVD, -HEENT, pupils PERRL, and soft non tender/distended, skin PWD with good turgid, lung sounds clear an equal bilaterally. [facility] consulted. IV established. BMP conducted, 1L LR given. Red flags discussed. All times are approx. ...................... ...................... ...................... ...................... ...................... ...................... ......... Disposition: Fulfilled Carmen Pemberton MD [address] [place] [address],[address], [place], [phone], [employer] 03/03/2023 12:22:18 04/06/2023 text/html [facility] Nursing Assessment: Chief Complaints: Syncope/Dizziness/Ligh theadedness, Falls PMH: COPD/Asthma Allergies: Unknown Comments: + dizziness since yesterday. Fall x2 yesterday and today. Unsteady gait due to dizziness. Unknown LOC. Possible head strike. c/o left wrist pain. Advised ED for further evaluation. Member declined ED after education but will accept [facility] visit first. Red flags reviewed. Instructed to call 911 for worsening symptoms. Jose Hawk MD [address] [place] [address],[address], [place], [address], [facility] 04/06/2023 15:45:49 10/22/2023 text/html [facility] Nurse Triage Notes (Morenita Dawson): Chief Complaints: Pain PMH: COPD/Asthma Allergies: Unknown Comments: Thai speaking member. resourcing consultant used. Verified name//address. Member reports left flank pain that is getting worse. Reports multiple falls. Last fall on Friday. Member states she was evaluated s/p falls. Denies fevers. Denies urinary symptoms. Denies chest pain or shortness of breath. Advised member to call 911 with worsening signs/symptoms. ...................... ...................... ...................... ...................... ...................... ...................... ......... Ornamental Metal Worker Apprentice Note From Costa Nielsen: Patient conscious alert [...] sample culture to [facility] UA values to [facility]. [facility] orders levafloxacin 500 mg PO and will prescribe more to patients local pharmacy. Red flags and patient education discussed. Consent, signed and uploaded times two ...................... ...................... ...................... ...................... ...................... ...................... ......... Disposition: Fulfilled Alie Dillard MD [address] [facility],[address], [place], [address], [employer] 10/22/2023 21:25:11 11/16/2024 text/html [facility] Nurse Triage Notes (Morenita Dawson): Reason For Request: Pt is not feeling well, very tired and was discharged from hospital on the Denies: Unable to void greater than 5 hours Erection that will not go away after 2 hours Fall or trauma that results in urinary incontinence in the setting of pain Fall or injury that results in incontinence in the absence of pain Lower back pain either unilateral or bilateral, unable to void, painful urination -hematuria Chief Complaints: Dizziness, Weakness PMH: COPD/Asthma, Gastroesophageal Reflux Disease (GERD), Fibromyalgia, Depression, Other PMH Reviewed at 11/16/2024:55 Allergies Reviewed at 11/16/2024:55 Comments: 68 y.o female complains of Dizziness, Weakness Thai speaking patient reporting dizziness when turning head, fatigue/weakness and hand tremors. Symptoms started 6 days ago and was evaluated for same symptoms in the hospital. MRI and CT scan were normal. Sent a prescription for Keflex for treatment of UTI which patient states she has been taking. Denies fever/chills. Denies urinary symptoms currently. Has flank pain at baseline. Does have a history of Vertigo. I provided information on the mobile health provider response time and advised the patient and/or caregiver to monitor reported signs and symptoms. I discussed the warning signs of when to seek emergency care. ...................... ...................... ...................... ...................... ...................... ...................... ......... Ornamental Metal Worker Apprentice Note From Bonnie Morales: Sent to a call for a pt complaining of dizziness. SC8 arrives on scene, pt is alert and oriented, airway is patent. Pt has history of Vertigo, COPD, GERD, and Fibromyalgia. Pt has history of dizziness and has been prescribed Meclizine 25mg TID,ran out, but hasn't needed it in several months, . Pt complains of dizziness x 1 week. Pt was hospitalized and treated for UTI and Vertigo at [facility]. Pt is still taking Keflex as prescribed. Pt states she was feeling better in hospital, but was discharged on 11/13 and hasn't been able to get a refill of Meclizine. Pt complains of worsening dizziness (in all positions and when turning head side to side) and fatigue. Pt denies mera, cough, cp, sob, n/v/d, abd pain, fever, or loc. Pt states her doctor's office was contacted yesterday, but she is waiting for a callback. Pt requests Meclizine for dizziness. BP:129/75, P:71, RR:18, SpO2:97% RA, T:97.7; Head: unremarkable; Lung sounds: clear bilaterally; Abdomen: soft, non-tender, no distention; Back: unremarkable; Extremities: unremarkable; Skin: pink, warm, dry; [facility] consulted and orders Meclizine 25mg PO. Meclizine 25mg PO administered. Pt advised to follow up with PCP again tomorrow. Red flags discussed. Pt has no further questions. [facility] [place]: meclizine 25 mg tablet: Administered ...................... ...................... ...................... ...................... ...................... ...................... ......... [facility] Consulted: Alie Dillard ...................... ...................... ...................... ...................... ...................... ...................... ......... Disposition: Fulfilled Alie Dillard MD [address] [facility],[address], [place], [address], [employer] 11/16/2024 19:43:20 11/20/2024 text/html CRC Nurse Triage Notes (Bety Ritter): Reason For Request: Patient has lower back pain, Patient fell today. Denies: Falls with head strike and LOC Falls from a standing position, no LOC, patient is amnestic to the event Falls with isolated injury and deformity noted to limb Falls with inability to move post fall Cool extremities after fall or injury Chief Complaints: Back Pain, Falls PMH: COPD/Asthma, Gastroesophageal Reflux Disease (GERD), Fibromyalgia, Depression PMH Reviewed at 11/20/2024: Allergies Reviewed at 11/20/2024:42 Comments: 68 y.o female complains of Back Pain, Falls ALLERGIES- she said multiple but was unable to provide any, and does not have a list in the home. Patient fell around 9a, she lost her balance and fell back on her buttocks. She denies any head strike, she does not take any blood thinners. Denies any bruising or swelling. She is now having lower back pain and would like to be evaluated. I provided information on the mobile health provider response time and advised the patient and/or caregiver to monitor reported signs and symptoms. I discussed the warning signs of when to seek emergency care. ...................... ...................... ...................... ...................... ...................... ...................... ......... 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 Patient reports she has a history of vertigo for which she is treated with meclizine, was admitted from 11/11/24-11/13/24 at [facility] for said vertigo. Patient reports she was feeling dizzy earlier this morning and from standing, fell directly onto her buttocks. Patient denies striking her head and recalls the entire incident; states she is not anticoagulated. Patient reports taking the meclizine as prescribed, but states she was given a generic version by her pharmacy and feels it is not helping her symptoms. Skin warm, dry and of appropriate color for ethnicity. Head and neck, free of trauma and edema.-JVD. Breath sounds present clear and equal bilaterally. Extremity is free of trauma and edema. [facility] [place]: recommends patient be transported to the emergency room since she lives by herself and is suffering falls due to her dizziness, despite taking meclizine as prescribed. [facility] additionally states if patient is refusing transport to the emergency room, an additional dose of meclizine could be attempted to see if patient symptoms subside. Patient states she would much prefer to try meclizine at home and avoid a trip to the hospital. 25 mg of PO meclizine administered. Patient encouraged to monitor for increasing dizziness and to seek further medical attention, including 911 if she were to develop chest pain and shortness of breath or confusion. Patient verbalizes understanding and states she is comfortable remaining home today. ...................... ...................... ...................... ...................... ...................... ...................... ......... [facility] Consulted: Madelyn Robertson ...................... ...................... ...................... ...................... ...................... ...................... ......... Disposition: Fulfilled Madelyn Robertson MD [address] [facility],[address], [place], [address], TADEO SAMUEL 11/20/2024 21:14:56 OBGyn Episode No OBEpisode recorded.
== END 2025-01-06 06:30 | disposition home or self-care (01) ==
LOC: CF 06:29
PROVIDERS: Visit Provider Internal Medicine
DX: Z13.89 Encounter for screening for other disorder (principal)

== ENCOUNTER 2025-01-19 07:51 | Outpatient (AMB) | payer OTHER, SELFPAY ==
--- NOTE | 2025-01-19 07:52 | MHC.OFFWIV ---
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: No Is last menstrual period known: No Post menopausal: No Patient : No Allergies codeine (Tylenol-Codeine #3) Allergy (Intermediate, Verified 01/19/25 07:57) Rash morphine Allergy (Intermediate, Verified 01/19/25 07:57) rash and itching nalbuphine (From Nubain) Allergy (Intermediate, Verified 01/19/25 07:57) Rash oxycodone (Percocet) Allergy (Intermediate, Verified 01/19/25 07:57) Rash propoxyphene (From Darvocet-N 100) Allergy (Intermediate, Verified 01/19/25 07:57) Rash tramadol (Ultram) Allergy (Intermediate, Verified 01/19/25 07:57) Rash ibuprofen (From Motrin) Allergy (Mild, Verified 01/19/25 07:57) RASH montelukast (Singulair) Allergy (Unknown, Verified 01/19/25 07:57) Unknown Do you need a note to return to daycare/school/sports/work: No HPI HPI Comments History of Present Illness Details Patient is a 69yo F with PMH of insomnia, GERD, lumbar radiculopathy who presents with leg edema Ongoing since Friday; fluctuates in severity over the last few days Denies similar symptoms in the past She feels bilateral legs and feet swelling Pain level is 10/10 at times Pain better with rest She has tried to rest and elevate without resolution She denied recent travel or hx of blood clots She denies CP or SOB She denies any new medications No hx of CHF per pt knowledge Patient denies leg rashes or skin color changes No numbness, tingling or weakness Denies fever, chills, fatigue. Admits to normal energy and appetite; but did have episode of vomiting this am. No abdominal pain or current nausea PFSH Medical History Folliculitis Pure hypercholesterolemia Allergic rhinitis Insomnia Multiple joint pain GERD without esophagitis Vitamin D deficiency Lumbar spondylosis Obesity (BMI 30-39.9) Migraine Primary osteoarthritis of both knees Urinary incontinence Rotator cuff tear, left Depression Asthma Fibromyalgia Non-toxic multinodular goiter Anxiety Surgical History Status post rotator cuff surgery S/P rotator cuff repair Status post right rotator cuff repair (~07/26/18) History of hysterectomy History of cholecystectomy History of laminectomy (~2009) Family History Father Diabetes Mother Medical history unknown Social History Household Members: None Housing: Apartment Do you presently have visiting nurse or other home services: No Alcohol intake: former Patient Tobacco Use Status: Never used Tobacco e-Cigarette/Vaping Use: Never Used Second Hand Smoke Exposure: No Patient : No service: No Current occupational status: disabled Cognitive needs: Yes (cane) Hearing needs: No Vision needs: Yes (glasses) Review of Systems Const Denies chills, Denies fever(s) and Denies frequent falls ENT Denies dizziness Card Denies chest pain, Denies rapid heart rate, Reports pedal edema, Reports leg edema and Denies dyspnea Resp Denies cough and Denies dyspnea GI Denies abdominal pain, Denies nausea and Reports vomiting Musc Denies tingling Skin/Breast Denies pruritus, Denies lesions, Denies new lesions, Denies erythema and Reports skin swelling Neuro Denies dizziness, Denies frequent falls and Denies tingling Physical Exam Vital Signs: Last Vital Signs Temp 98.4 F 01/19/25 07:53 Pulse 82 01/19/25 07:53 BP 122/76 01/19/25 07:53 Pulse Ox 100 01/19/25 07:53 Oxygen Delivery Method Room Air 01/19/25 07:53 BMI result Body Mass Index 36.8 General: Non-toxic, NAD. Speaking full sentences. Skin: Warm dry throughout Lower extremities are symmetrical in size and shape bilaterally. No erythema, ecchymosis, pallor or rashes lesions noted bilaterally Eye: EOMI Respiratory: CTA bilaterally. No wheezes, rales or rhonchi Cardiac: RRR. No murmur DP pulse intact with cap refill < 2 seconds on all digits. No calf tenderness to palpation bilaterally. 2+ pitting edema to bilateral lower extremities approx 1.5inches from tibial plateau distally to dorsal aspect of foot. MSK: 5/5 strength dorsal.plantar flexion great toe bilaterally. + dorsal/plantar flexion at ankles bilaterally. + flexion/extension at knees bilaterally. No bony tenderness to palpation of knees or ankles. Neurology: Alert. No aphasia or facial droop. Gait without abnormality using walker (baseline) Psych: Good mood and affect Assessment & Plan Assessment & Plan (1) Leg edema: Code(s): R60.0 - Localized edema Plan: Patient seen and evaluated. No sign of cellulitis on exam Pt has no unilateral leg edema and Wells score is -2. No concern for DVT at this time. O2 is stable and lungs CTA. She denies CP or SOB, no overt sign of new onset CHF and chest xray held at this time Will check LFTs and BNP. Note sent to PCP for close follow up Will not prescribed lasix at this time due to known kidney function (last checked 6 months ago) Patient gave verbal understanding and had no additional questions or concerns at time of discharge All questions answered Orders: Orders Comprehensive Met. Panel Today R60.0 - Localized edema Complete Blood Count Auto Diff Today R60.0 - Localized edema B Type Natriuretic Peptide Today R60.0 - Localized edema Coding Level of Care Code Est Pt Level 3 (21746) Diagnoses Leg edema R60.0
[2025-01-19 07:53] VITALS: BP 122/76; PULSE 82; TEMP 36.9; O2SAT 100; BMI 36.8
--- OUTSIDE RECORDS SUMMARY | 2025-01-19 07:53 | XMS_ITS | Data Portability ---
Author Organization Placed, [facility] Address [address] [place] [address] Care Team Providers Care Business Development Assistant Name Role Phone HIM CCA OTHER BLAZE PATTEN Primary Care Provider Assessment Encounter Date Assessment Date Assessment LastModified by Organization Details LastModified Time 10/22/2023 10/22/2023 I provided real -time medical direction via phone for this encounter and was available for additional phone-based assistance as needed. I have reviewed and agree with the Assessment and Plan as documented by the Generator Technician. Patient given the opportunity to ask questions. Our service contacted for an assessment of: Urinary symptoms As per above, patient with approximately 24 hours of dysuria, frequency. No history of frequent urinary tract infections. Denies fever, chills, abdominal pain, back pain, flank pain. Per cost and sales record supervisor on the scene, Vital signs are stable [...] Assessment and Plan as documented by the Generator Technician. Patient given the opportunity to ask questions. [...] she was out of the medication. Per cost and sales record supervisor on the scene, Vital signs are stable patient is afebrile. Patient is nontoxic and a good historian of events. Per cost and sales record supervisor on the scene she has a nonfocal [...] . Lab urinalys is, dipstick 2023 024 [facility], [address] [place] [address], [id number] 4 09:18:24 culture, urine 2023 024 [email or web address] [facility] (Centralized Electronic Ordering - All Locations), Patient Can Go To The Location Of Their Choice, [id number] 4 09:55:32 urinalys is, dipstick 2023 024 [facility], [address] [place] [address], [phone] 09:18:51 Referral None recorded . Procedures None recorded . Surgeries None recorded . Imaging None recorded . Medication Orders meclizin e 25 mg tablet 2024 025 [email or web address] [facility]Pharmacy #[id number], [address] [place], [address], 5 18:19:50 meclizin e 25 mg tablet 2024 025 [id number], [address], [place], [id number], 5 18:19:56 meclizin e 25 mg tablet 2024 025 [email or web address] [facility]/Pharmacy #[id number], [address] [place], [address], 5 18:23:15 levoflox acin 500 mg tablet 2023 024 [facility], [address] [place], [address], 4 21:23:53 lactated Ringers intraven ous solution 2022 023 [email or web address] [facility], [address] [place], [address], 3 12:22:06 Patient TargetsNo targets recorded. Patient InstructionsNo instructions recorded. Reason for Referral None Reported. Results Created Date Observation Date Name Description Value Unit Range Abnormal Flag Note LastModifiedBy Organization Detail LastModifiedTime 02/24/2002/23/2023 BMP, serum or plasm a BUN 19 Not Available [facility] [address], [phone] 02/23/2023 19:45:16 02/24/20 23 02/23/2023 BMP, serum or plasm a CI- 99 Not Available [facility] [address], [address] 02/23/2023 19:45:16 02/24/20 23 02/23/2023 BMP, serum or plasm a CRE 0.7 Not Available [facility] [address], [address] [place] [address] 02/23/2023 19:45:16 02/24/20 23 02/23/2023 BMP, serum or plasm a GLU 162 Not Available [facility] [address], [address] [place] [address] 02/23/2023 19:45:16 02/24/20 23 02/23/2023 BMP, serum or plasm a K+ 4.2 Not Available [facility] [address], [address] [place] [address] 02/23/2023 19:45:16 02/24/20 23 02/23/2023 BMP, serum or plasm a Na+ 139 Not Available [facility] [address], [address] [place] [address] 02/23/2023 19:45:16 02/24/20 23 02/23/2023 BMP, serum or plasm a tCO2 20 Not Available [facility] [address], [address] [place] [address] 02/23/2023 19:45:16 03/01/20 23 03/01/2023 BMP, serum or plasm a BUN 23 Not Available [facility] [address], [address] [place] [address] 03/01/2023 13:31:01 03/01/20 23 03/01/2023 BMP, serum or plasm a CRE 0.7 Not Available [facility] [address], [address] [place] [address] 03/01/2023 13:31:01 03/01/20 23 03/01/2023 BMP, serum or plasm a GLU 131 Not Available [facility] [address], [address] 03/01/2023 13:31:01 03/01/20 23 03/01/2023 BMP, serum or plasm a K+ 4.6 Not Available [facility] [address], [address] [place] [address] 03/01/2023 13:31:01 03/01/20 23 03/01/2023 BMP, serum or plasm a Na+ 140 Not Available [facility] [address], [address] [place] [address] 03/01/2023 13:31:01 03/01/20 23 03/01/2023 BMP, serum or plasm a tCO2 28 Not Available [facility] [address], [place], [address] 03/01/2023 13:31:01 Result Notes None recorded. Medical [...] Pulse oximetry Respiratory rate Heart rate Systolic And Diastolic Provider Name and Address Organization Details Last Updated DateTime 4 16309.6 g 152.4 cm 98.4 [degF] 96 % 96 % 14 /min 80 /min 124/80 mm[Hg] Not Available [employer] 4 21:21:02 Date Recorded Respiratory rate Body temperature Heart rate Oxygen saturation Oxygen saturation in Arterial blood by Pulse oximetry Systolic And Diastolic Provider Name and Address Organization Details Last Updated DateTime 5 18 /min 97.7 [degF] 71 /min 97 % 97 % 129/75 mm[Hg] Not Available [employer] 5 18:20:58 Date Recorded Oxygen saturation Oxygen saturation in Arterial blood by Pulse oximetry Respiratory rate Heart rate Body temperature Systolic And Diastolic Provider Name and Address Organization Details Last Updated DateTime 5 95 % 95 % 16 /min 83 /min 98 [degF] 138/98 mm[Hg] Not Available [employer] [facility] [employer] 5 18:17:10 Date Recorded Body temperature Respiratory rate Heart rate Oxygen saturation Oxygen saturation in Arterial blood by Pulse oximetry Systolic And Diastolic Provider Name and Address Organization Details Last Updated DateTime 3 97.9 [degF] 16 /min 99 /min 97 % 97 % 128/78 mm[Hg] Not Available [employer] [facility] [employer] 3 11:48:04 Date Recorded Body temperature Heart rate Respiratory rate Oxygen saturation Oxygen saturation in Arterial blood by Pulse oximetry Systolic And Diastolic Provider Name and Address Organization Details Last Updated DateTime 3 96.9 [degF] 72 /min 16 /min 100 % 100 % 161/90 mm[Hg] Not Available [facility] - production 3 [...] SNOMED-CT Code Diagnosis ICD10 Code Diagnosis Note [id number] Kesha Beck MD Main - [address] [phone] 02/21/2023 15:44:06 02/22/2023 15:35:21 Dehydration [id number] E86.0 [id number] Sajan Rueda MD [facility] - [address] [phone] 02/23/2023 18:33:42 02/24/2023 07:20:36 Dizziness [id number] R42 As noted, we were called to see this patient regarding concerns of dizziness/ unsteadine ss. Evaluation in the field was performed by my cost and sales record supervisor colleague, as noted above, I provided real-time [...] uncertain etiology, ddx includes hypovolemi a, meds, MARINE REPORTER or PNS process, including focal lesions, neuropathy [...] particular ly falling, confusion, face/arm/l eg weakness. [id number] Madelyn Robertson MD Main - [address] [phone] 03/01/2023 13:28:34 03/04/2023 11:06:40 Acute gastroenteritis [id number] K52.9 Evaluation in the field was performed by my cost and sales record supervisor colleague, as noted above, I provided real-time [...] shortness of breath, cough, chest pain, fever. [id number] Carmen Pemberton MD Main - [address] [phone] 03/02/2023 11:45:43 03/04/2023 11:11:38 Acute gastroenteritis [id number] K52.9 67 yo w/ gastroente ritis, seen [...] on Friday morning. Questions answered; pt and cost and sales record supervisor agreeable with plan [id number] Jose Hawk MD [facility] - [facility] [address] [place] [phone] 04/06/2023 15:42:46 04/07/2023 08:17:20 Syncope and collapse [id number] R55 This 67-year-ol d female has had two episodes of syncope without warning in the past 24 hours. She did hit her head and now complains of head and neck pain. I recommende d that she go to the ER for further evaluation and treatment. The patient resisted this recommenda tion, so I instructed the cost and sales record supervisor to try and change her mind. [id number] Alie Dillard MD [facility] - [facility] [address] [place] [phone] 10/22/2023 21:20:49 10/23/2023 11:15:53 Urinary symptoms [id number] R39.9 [id number] Alie Dillard MD [facility] - [facility] [address] [place] [phone] 11/16/2024 18:20:56 11/16/2024 21:08:15 Dizziness [id number] R42 [id number] Madelyn Robertson MD [facility] - [facility] [address] [place] [phone] 11/20/2024 18:17:08 11/21/2024 18:14:07 Vertigo [id number] R42 Evaluation in the field was performed by my cost and sales record supervisor colleague, as noted above, I provided real-time [...] Maradiaga Member ID Guarantor Name 11/16/2024 1 [facility] - DOS ON OR AFTER 2022 - DUAL ELIGIBLE - CARE HOME OPTIONS AND ONE CARE (MEDICARE REPLACEMENT/ADV ANTAGE - HMO) Sabrina Mcqueen [id number] Sabrina Mcqueen Notes Date Note Type Note [...] POC bloodwork drawn, unremarkable. Sent results to [facility], [facility] contacted [facility] ordered 1L of NS and 4MG of zofran IVP. [facility] sent prescription for Zofran to pt's pharmacy. Pt educated on s/s warranting a 911 call/trip to the hospital. Pt advised to F/U with PCP or [facility] if symptoms persist or worsen. Shreyas TORRES ...................... ...................... ...................... ...................... ...................... ...................... ......... Generator Technician Note From Man Bolton: Dispatched to the [...] CAOx4, airway open and patent. 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 Able to speak in full sentences, -JVD, -HEENT, pupils PERRL, and soft non tender/distended, skin PWD with good turgid, lung sounds clear an equal bilaterally. [facility] consulted. IV established. BMP conducted, 1L LR given. Red flags discussed. All times are approx. ...................... ...................... ...................... ...................... ...................... ...................... ......... Disposition: Nissa Pemberton MD [address] [place] [address],[address], [place], [address], [employer] 03/03/2023 12:22:18 04/06/2023 text/html [facility] Nursing Assessment: Chief Complaints: Syncope/Dizziness/Ligh theadedness, Falls PMH: COPD/Asthma Allergies: Unknown Comments: + dizziness since yesterday. Fall x2 yesterday and today. Unsteady gait due to dizziness. Unknown LOC. Possible head strike. c/o left wrist pain. Advised ED for further evaluation. Member declined ED after education but will accept [facility] visit first. Red flags reviewed. Instructed to call 911 for worsening symptoms. Jose Hawk MD [address] [place] [address],[address] [facility], [place], [phone], [employer] 04/06/2023 15:45:49 10/22/2023 text/html CRC Nurse Triage Notes (Morenita Dawson): Chief Complaints: Pain PMH: COPD/Asthma Allergies: Unknown Comments: Serbian speaking member. motor vehicle parts interpreter used. Verified name//address. Member reports left flank pain that is getting worse. Reports multiple falls. Last fall on Friday. Member states she was evaluated s/p falls. Denies fevers. Denies urinary symptoms. Denies chest pain or shortness of breath. Advised member to call 911 with worsening signs/symptoms. ...................... ...................... ...................... ...................... ...................... ...................... ......... Generator Technician Note From Costa Nielsen: Patient conscious alert [...] sample culture to [facility] UA values to [facility]. [facility] orders levafloxacin 500 mg PO and will prescribe more to patients local pharmacy. Red flags and patient education discussed. Consent, signed and uploaded times two ...................... ...................... ...................... ...................... ...................... ...................... ......... Disposition: Fulfilled Alie Dillard MD [address] [place] [address],[address], [place], [phone], Placed 10/22/2023 21:25:11 11/16/2024 text/html CRC Nurse Triage [...] 68 y.o female complains of Dizziness, Weakness Serbian speaking patient reporting dizziness when turning head, [...] ...................... ...................... ...................... ...................... ...................... ...................... ......... Generator Technician Note From Bonnie Morales: Sent to a [...] and treated for UTI and Vertigo at [facility]. Pt is still taking Keflex as [...] unremarkable; Extremities: unremarkable; Skin: pink, warm, dry; [facility] consulted and orders Meclizine 25mg PO. Meclizine 25mg PO administered. Pt advised to follow up with PCP again tomorrow. Red flags discussed. Pt has no further questions. [facility] Medication Orders: meclizine 25 mg tablet: Administered ...................... ...................... ...................... ...................... ...................... ...................... ......... [facility] Consulted: Alie Dillard ...................... ...................... ...................... ...................... ...................... ...................... ......... Disposition: Fulfilled Alie Dillard MD [address] [facility],[address], [place], [address], [place] [employer] 11/16/2024 19:43:20 11/20/2024 text/html CRC Nurse Triage [...] ...................... ...................... ...................... ...................... ...................... ...................... ......... Generator Technician Note From Chai Nunez: Encountered patient, supine in bed and conscious. Patient reports she has a history of vertigo for which she is treated with meclizine, was admitted from 11/11/24-11/13/24 at [facility] for said vertigo. Patient reports she was [...] Extremity is free of trauma and edema. [facility] contacted: recommends patient be transported to the emergency room since she lives by herself and is suffering falls due to her dizziness, despite taking meclizine as prescribed. [facility] additionally states if patient is refusing transport [...] ...................... ...................... ...................... ...................... ...................... ...................... ......... [facility] Consulted: Madelyn Robertson ...................... ...................... ...................... ...................... ...................... ...................... ......... Disposition: Fulfilled Madelyn Robertson MD [address] [place] [address],[address], [place], [phone], [facility] 11/20/2024 21:14:56 OBGyn Episode No OBEpisode recorded.
--- OUTSIDE RECORDS SUMMARY | 2025-01-19 07:53 | XMS_ITS | Clinical Summary ---
Author Organization [facility] Address [address] [place] [phone] Phone Care Team Providers Care Concrete Batcher Name Role Phone Henrique Soler MD Primary [...] - 11/25/2024 3:42 PM EDT Hospital Encounter [facility] [address] [place] [phone] Christophe Hilton MD Neenan, Kevin P, DO Bukalo, Nermina, MD Bell, Alistair A, MD Fall, initial encounter (Primary Dx); Acute cystitis without hematuria; Dizziness Discharge Disposition: Home-Health Care [facility] [place] 11/11/2024 12:50 PM EDT - 11/13/2024 5:06 PM EDT Hospital Encounter [facility] [address] [place] [phone] Man Cornelius, Tyshawn Edwards MD Santoyo-Pacheco, Omar D, MD Dizziness (Primary Dx) Discharge Disposition: Home-Health Care [facility] [place] 11/09/2024 6:15 PM EDT - 11/10/2024 12:[address] [facility] [address] [place] [phone] Acute cystitis without hematuria (Primary Dx); Dizziness Discharge Disposition: Home or Self Care from [...] Vaccine ( season) 2024 Influenza Vaccine (#1) 2025 2, 04/09/2021, 09/15/2020, Additional history exists Pneumococcal [...] EDT XR HIP 2-3 VIEWS RIGHT STAT 11/24/2024 12:41 PM EDT ECG 12-LEAD STAT 11/24/2024 [...] ECG 12-LEAD STAT 11/09/2024 6:00 PM EDT SCR MAMMO BI INCL CAD [...] Complete blood count (11/25/2024 6:03 AM EDT) [facility] Signature WBC 5.7 4.8 - 10.8 K/[facility] LAB HEMETOLOGY METHOD 11/25/2024 7:10 AM EDT [facility] RBC 4.60 3.80 - 4.80 M/mcL LAB HEMETOLOGY METHOD 11/25/2024 7:10 AM [facility] Hemoglobin 13.2 11.5 - 16.0 g/dL LAB HEMETOLOGY METHOD 11/25/2024 7:10 AM [facility] Hematocrit 42.1 35.0 - 47.0 % LAB HEMETOLOGY METHOD 11/25/2024 7:10 AM [facility] MCV 91.1 79.0 - 98.0 FL LAB HEMETOLOGY METHOD 11/25/2024 7:10 AM [facility] MCH 28.6 27.0 - 32.0 pcg LAB HEMETOLOGY METHOD 11/25/2024 7:10 AM [facility] MCHC 31.4(L) 32.0 - 37.0 g/dL LAB HEMETOLOGY METHOD 11/25/2024 7:10 AM [facility] RDW 14.6 11.0 - 15.0 % LAB HEMETOLOGY METHOD 11/25/2024 7:10 AM [facility] Platelets 190 130 - 400 K/mcL LAB HEMETOLOGY METHOD 11/25/2024 7:10 AM [facility] MPV 12.2(H) 7.0 - 11.0 FL LAB HEMETOLOGY METHOD 11/25/2024 7:10 AM [facility] NRBC 0.0 <1.0 % LAB HEMETOLOGY METHOD 11/25/2024 7:10 AM [facility] NRBC Absolute 0.00 <0.10 K/mcL LAB HEMETOLOGY METHOD 11/25/2024 7:10 AM [facility] Blood Venous blood specimen / Unknown Venipuncture / Unknown 11/25/2024 6:03 AM EDT 11/25/2024 6:49 AM EDT us Cindy Perez MD LAB BLOOD ORDERABLES Final Res ult [facility] [address] [place] [address], [place] [phone] * (ABNORMAL) Basic metabolic panel (11/25/2024 6:03 AM EDT) Only the most recent of5 resultswithin the time period is included. Sodium 139 133 - 145 mmol/L LAB CHEMISTRY METHOD 11/25/2024 7:26 AM [facility] Potassium 4.2 3.5 - 5.5 mmol/L LAB CHEMISTRY METHOD 11/25/2024 7:26 AM [facility] Chloride 108 96 - 110 mmol/L LAB CHEMISTRY METHOD 11/25/2024 7:26 AM [facility] CO2 27 21 - 32 mmol/L LAB CHEMISTRY METHOD 11/25/2024 7:26 AM [facility] Anion Gap 4 3 - 11 LAB CHEMISTRY METHOD 11/25/2024 7:26 AM [facility] Glucose 172(H) 70 - 100 mg/dL LAB CHEMISTRY METHOD 11/25/2024 7:26 AM [facility] BUN 14 5 - 25 mg/dL LAB CHEMISTRY METHOD 11/25/2024 7:26 AM [facility] Creatinine 0.91 0.50 - 1.10 mg/dL LAB CHEMISTRY METHOD 11/25/2024 7:26 AM [facility] eGFR 69 >=60 mL/min/1. 73m2 LAB CHEMISTRY METHOD 11/25/2024 7:26 AM [facility] Comment:Calculation based on the Chronic Kidney Disease Epidemiology Collaboration (CKD-EPI) equation refit without adjustment for race. BUN/Creatinine Ratio 15.4 LAB CHEMISTRY METHOD 11/25/2024 7:26 AM [facility] Calcium 8.5 8.5 - 10.5 mg/dL LAB CHEMISTRY METHOD 11/25/2024 7:26 AM EDT [facility] Blood Venous blood specimen / Unknown Venipuncture / Unknown 11/25/2024 6:03 AM EDT 11/25/2024 6:49 AM EDT Cindy Perez MD LAB BLOOD ORDERABLES Final Res ult Performing Organization Address City/[facility]/ZIP Co de Phone Number [facility] [address] [place] [address], [place] [phone] * (ABNORMAL) Valproic acid level, total (11/24/2024 7:37 PM EDT) Only the most recent of2 resultswithin the time period is included. Pathologist [facility] Valproic Acid, Total <3(L) 50 - 100 mcg/mL LAB CHEMISTRY METHOD 11/24/2024 8:30 PM EDT [facility] Blood Venous blood specimen / Unknown Venipuncture / Unknown 11/24/2024 7:37 PM EDT 11/24/2024 8:01 PM EDT us Lilli GREENWOOD LAB BLOOD ORDERABLES Final Result Performing Organization Address [facility]/ZIP Co de Phone Number [facility] [address] [place] [address], [place] [phone] * (ABNORMAL) Urinalysis with reflex microscopic and culture (11/24/2024 6:03 PM EDT) Only the most recent of3 resultswithin the time period is included. Specific [place] Urine 1.021 1.003 - 1.030 LAB URINALYSIS - AUTOMATED METHOD 11/24/2024 6:33 PM EDT [facility] pH, Urine 5.5 5.0 - 8.0 pH LAB URINALYSIS - AUTOMATED METHOD 11/24/2024 6:33 PM [facility] Leukocytes, Urine Trace(A) Negative LAB URINALYSIS - AUTOMATED METHOD 11/24/2024 6:33 PM [facility] Nitrite, Urine Positive(A) Negative LAB URINALYSIS - AUTOMATED METHOD 11/24/2024 6:33 PM [facility] Protein, Urine Negative <=Trace mg/dL LAB URINALYSIS - AUTOMATED METHOD 11/24/2024 6:33 PM [facility] Glucose, Urine Negative Negative mg/dL LAB URINALYSIS - AUTOMATED METHOD 11/24/2024 6:33 PM [facility] Ketones, Urine Negative Negative mg/dL LAB URINALYSIS - AUTOMATED METHOD 11/24/2024 6:33 PM [facility] Urobilinogen , Urine 0.2 0.2 - 1.0 mg/dL LAB URINALYSIS - AUTOMATED METHOD 11/24/2024 6:33 PM [facility] Bilirubin, Urine Negative Negative LAB URINALYSIS - AUTOMATED METHOD 11/24/2024 6:33 PM [facility] Blood, Urine Trace(A) Negative LAB URINALYSIS - AUTOMATED METHOD 11/24/2024 6:33 PM [facility] RBC, Urine 2.6 0 - 4 /HPF LAB URINALYSIS - AUTOMATED METHOD 11/24/2024 6:33 PM [facility] WBC, Urine 7.6(H) 0 - 4 /HPF LAB URINALYSIS - AUTOMATED METHOD 11/24/2024 6:33 PM [facility] Squamous Epithelial, Urine 36 0 - 60 /LPF LAB URINALYSIS - AUTOMATED METHOD 11/24/2024 6:33 PM [facility] Bacteria, Urine Many(A) Negative /HPF LAB URINALYSIS - AUTOMATED METHOD 11/24/2024 6:33 PM [facility] Hyaline Casts, Urine 4.4(H) 0 - 3 /LPF LAB URINALYSIS - AUTOMATED METHOD 11/24/2024 6:33 PM EDT [facility] Urine Urinary bladder structure / Unknown Non-blood Collection / Unknown 11/24/2024 6:03 PM EDT 11/24/2024 6:16 PM EDT [facility] URINE ORDERABLES Final Result Performing Organization Address [facility] de Phone Number [facility] [address] [place] [address], [place] [phone] * Mercedes urine culture tube (11/24/2024 6:03 PM EDT) Only the most recent of4 resultswithin the time period is included. Extra Tube Hold for add-ons. 11/24/2024 8:01 PM EDT [facility] Comment:Auto resulted. Urine Urinary bladder structure / Unknown Non-blood Collection / Unknown 11/24/2024 6:03 PM EDT 11/24/2024 6:16 PM EDT Lilli Babcock [facility] URINE ORDERABLES Final Result Performing Organization Address [facility] de Phone Number [facility] [address] [place] [address], [place] [phone] * (ABNORMAL) Culture urine (11/24/2024 6:03 PM EDT) Only the most recent of3 resultswithin the time period is included. Culture, Urine 50,000-100,000 CFU/mL Escherichia coli(A) SCOTT 11/27/2024 9:48 AM EDT [facility] Comment: The organism value for [...] Escherichia coli Trimethoprim/Sulfamethoxazole SCOTT <=20 ug/ml: Susceptible us Lilli GREENWOOD LAB MICROBIOLOGY - GENERAL ORDERABLES Final Result Performing Organization Address City/State/[facility] Co de Phone Number [facility] [address] [place] [address], * CT Head wo Contrast (11/24/2024 4:03 PM EDT) Anatomical Region Laterality Modality Head and Neck Computed Tomogra phy 11/24/2024 4:12 PM EDT Impressions 11/24/2024 4:17 PM EDT NO ACUTE INTRACRANIAL ABNORMALITY. -------- FINAL REPORT -------- Dictated By: Jake Chambers Dictated Date: 11/24/2024 16:12 ET Assigned Physician: Jake Chambers Reviewed and Electronically Signed By: Jake Chambers Signed Date: 11/24/2024 16:17 ET Workstation ID: [id number] Transcribed By: Self Edit Transcribed Date: 11/24/2024 [...] Signed Date: 11/24/2024 16:17 ET Workstation ID: [id number] Transcribed By: Self Edit Transcribed Date: 11/24/2024 [...] Signed Date: 11/24/2024 15:37 ET Workstation ID: [id number] Transcribed By: Self Edit Transcribed Date: 11/24/2024 15:30 ET Narrative 11/24/2024 3:37 PM EDT History: Pelvic fracture Technique: Volumetric imaging through the pelvis without IV contrast obtained in a [employer] light speed VCT scanner. Dose reduction techniques [...] the pelvis without IV contrastobtained in a [employer] light speed VCT scanner. Dose reduction techniquesutilized [...] Chambers Reviewed and Electronically Signed By: Jake hCambers Signed Date: 11/24/2024 15:37 ET Workstation ID: [id number] Transcribed By: Self Edit Transcribed Date: 11/24/2024 [...] Signed Date: 11/24/2024 12:48 ET Workstation ID: [id number] Transcribed By: Self Edit Transcribed Date: 11/24/2024 [...] Signed Date: 11/24/2024 12:48 ET Workstation ID: [id number] Transcribed By: Self Edit Transcribed Date: 11/24/2024 12:47 ET us Christophe SMITH XR PROCEDURES Final Result * ECG 12 lead (11/24/2024 11:49 AM EDT) Only the most recent of3 resultswithin the time period is included. Pathologist [facility] Ventricular Rate ECG 76 BPM GEMUSE Atrial Rate 76 BPM GEMUSE P-R Interval 194 ms GEMUSE QRS Duration 82 ms GEMUSE Q-T Interval 398 ms GEMUSE QTc 447 ms GEMUSE P Wave [place] 44 degrees GEMUSE R [place] -9 degrees GEMUSE T [place] 28 degrees GEMUSE ECG Interpretation Normal sinus [...] 11:29 AM EDT) Only the most recent of4 resultswithin the time period is included. [facility] WBC 5.0 4.8 - 10.8 K/mcL LAB HEMETOLOGY METHOD 11/24/2024 12:48 PM EDT [facility] RBC 4.90(H) 3.80 - 4.80 M/mcL LAB HEMETOLOGY METHOD 11/24/2024 12:48 PM EDT [facility] Hemoglobin 14.0 11.5 - 16.0 g/dL LAB HEMETOLOGY METHOD 11/24/2024 12:48 PM EDT [facility] Hematocrit 43.8 35.0 - 47.0 % LAB HEMETOLOGY METHOD 11/24/2024 12:48 PM EDT [facility] MCV 90.3 79.0 - 98.0 FL LAB HEMETOLOGY METHOD 11/24/2024 12:48 PM EDT [facility] MCH 28.9 27.0 - 32.0 pcg LAB HEMETOLOGY METHOD 11/24/2024 12:48 PM EDT [facility] MCHC 32.0 32.0 - 37.0 g/dL LAB HEMETOLOGY METHOD 11/24/2024 12:48 PM EDT [facility] RDW 14.5 11.0 - 15.0 % LAB HEMETOLOGY METHOD 11/24/2024 12:48 PM EDT [facility] Platelets 205 130 - 400 K/mcL LAB HEMETOLOGY METHOD 11/24/2024 12:48 PM EDT [facility] MPV 12.3(H) 7.0 - 11.0 FL LAB HEMETOLOGY METHOD 11/24/2024 12:48 PM EDT [facility] NRBC 0.0 <1.0 % LAB HEMETOLOGY METHOD 11/24/2024 12:48 PM EDT [facility] NRBC Absolute 0.00 <0.10 K/mcL LAB HEMETOLOGY METHOD 11/24/2024 12:48 PM EDT [facility] Neutrophils Relative 30.5 % LAB HEMETOLOGY METHOD 11/24/2024 12:48 PM EDT [facility] Lymphocytes Relative 55.5 % LAB HEMETOLOGY METHOD 11/24/2024 12:48 [facility] Monocytes Relative 10.6 % LAB HEMETOLOGY METHOD 11/24/2024 12:48 PM EDT [facility] Eosinophils Relative 2.6 % LAB HEMETOLOGY METHOD 11/24/2024 12:48 PM EDT [facility] Basophils Relative 0.6 % LAB HEMETOLOGY METHOD 11/24/2024 12:48 PM EDT [facility] Immature Granulocytes Relative 0.2 % LAB HEMETOLOGY METHOD 11/24/2024 12:48 PM EDT [facility] Neutrophils Absolute 1.52 1.50 - 7.00 K/mcL LAB HEMETOLOGY METHOD 11/24/2024 12:48 PM EDT [facility] Lymphocytes Absolute 2.77 1.00 - 5.00 K/mcL LAB HEMETOLOGY METHOD 11/24/2024 12:48 PM EDT [facility] Monocytes Absolute 0.53 0.20 - 1.00 K/mcL LAB HEMETOLOGY METHOD 11/24/2024 12:48 PM EDT [facility] Eosinophils Absolute 0.13 0.00 - 0.50 K/mcL LAB HEMETOLOGY METHOD 11/24/2024 12:48 PM EDT [facility] Basophils Absolute 0.03 0.00 - 0.20 K/mcL LAB HEMETOLOGY METHOD 11/24/2024 12:48 PM EDT [facility] Immature Granulocytes Absolute 0.01 0.00 - 0.03 K/mcL LAB HEMETOLOGY METHOD 11/24/2024 12:48 PM EDT [facility] Blood Venous blood specimen / Unknown Venipuncture / Unknown 11/24/2024 11:29 AM EDT 11/24/2024 12:31 PM EDT Christophe Hilton MD LAB BLOOD ORDERABLES Final Resu lt [facility] [address] [place] [address], * MR Brain wo Contrast (11/12/2024 4:40 [...] Signed Date: 11/12/2024 17:10 ET Workstation ID: [id number] Transcribed By: Self Edit Transcribed Date: 11/12/2024 [...] Signed Date: 11/12/2024 17:10 ET Workstation ID: [id number] Transcribed By: Self Edit Transcribed Date: 11/12/2024 16:57 ET us Jojo GREENWOOD IMG MRI PROCEDURES Final Resu lt * (ABNORMAL) Lipid panel with reflex to direct LDL (11/12/2024 6:15 AM EDT) Cholesterol 203(H) 0 - 200 mg/dL LAB CHEMISTRY METHOD 11/12/2024 8:03 AM EDT [facility] Triglycerides 80 0 - 150 mg/dL LAB CHEMISTRY METHOD 11/12/2024 8:03 AM EDT [facility] HDL 71 >=40 mg/dL LAB CHEMISTRY METHOD 11/12/2024 8:03 AM EDT [facility] LDL Calculated 116(H) 0 - 100 mg/dL LAB CHEMISTRY METHOD 11/12/2024 8:03 AM [facility] VLDL Cholesterol Randy 16 mg/dL LAB CHEMISTRY METHOD 11/12/2024 8:03 AM [facility] Non HDL Chol. (LDL+VLDL) 132 <145 mg/dL LAB CHEMISTRY METHOD 11/12/2024 8:03 AM EDT [facility] Chol/HDL Ratio 2.9 0.0 - 4.4 LAB CHEMISTRY METHOD 11/12/2024 8:03 AM [facility] Blood Venous blood specimen / Unknown Venipuncture / Unknown 11/12/2024 6:15 AM EDT 11/12/2024 6:58 AM EDT us Jojo GREENWOOD LAB BLOOD ORDERABLES Final Re sult [facility] [address] [place] [address], * Magnesium (11/12/2024 6:15 AM EDT) Only the most recent of3 resultswithin the time period is included. Magnesium 1.9 1.9 - 2.6 mg/dL LAB CHEMISTRY METHOD 11/12/2024 8:03 AM EDT [facility] Blood Venous blood specimen / Unknown Venipuncture / Unknown 11/12/2024 6:15 AM EDT 11/12/2024 6:58 AM EDT us Jojo GREENWOOD LAB BLOOD ORDERABLES Final Re sult [facility] [address] [place] [address], * CT Angio Head/Neck wo and/or w [...] Signed Date: 11/11/2024 16:54 ET Workstation ID: [id number] Transcribed By: Self Edit Transcribed Date: 11/11/2024 [...] Omnipaque 370 injected. Scan was analyzed using [employer] Contact AI based computer aided triage software. [...] left ELENA. Vertebrobasilar system is patent. Proximal press smith helper are patent. Major dural venous sinuses opacify normally with contrast. Extracranial structures are unremarkable. Degenerative changes in the bones. Procedure Note Jake Chambers MD - 11/11/2024 PROCEDURE: CTA HEAD AND NECK INDICATION: Neuro deficit, acute, stroke suspected TECHNIQUE: CTA of the head and neck with intravenous contrast. Multiplanarreformats. The examination was performed utilizing dose reductiontechniques.3-D or MIP images were produced with postprocessing on an[employer]obi[employer] computer workstation. 90cc Omnipaque 370 injected. Scan wasanalyzed using [employer] Contact AI based computer aided triage software. [...] left ELENA. Vertebrobasilar system is patent. Proximal press smith helper are patent. Major dural venous sinuses opacify normally with contrast. Extracranial structures are unremarkable. Degenerative changes in thebones. IMPRESSION: NO ACUTE ABNORMALITY. -------- FINAL REPORT -------- Dictated By: Jake Chambers Dictated Date: 11/11/2024 16:51 ET Assigned Physician: Jake Chambers Reviewed and Electronically Signed By: Jake Chambers Signed Date: 11/11/2024 16:54 ET Workstation ID: [id number] Transcribed By: Self Edit Transcribed Date: 11/11/2024 16:51 ET us Man Cornelius DO IMG CT PROCEDURES Final Result * (ABNORMAL) Urinalysis with reflex microscopic (11/11/2024 3:03 PM EDT) Specific [place] Urine 1.019 1.003 - 1.030 LAB URINALYSIS - AUTOMATED METHOD 11/11/2024 3:44 PM [facility] pH, Urine 6.0 5.0 - 8.0 pH LAB URINALYSIS - AUTOMATED METHOD 11/11/2024 3:44 PM [facility] Leukocytes, Urine Trace(A) Negative LAB URINALYSIS - AUTOMATED METHOD 11/11/2024 3:44 PM [facility] Nitrite, Urine Negative Negative LAB URINALYSIS - AUTOMATED METHOD 11/11/2024 3:44 PM [facility] Protein, Urine Negative <=Trace mg/dL LAB URINALYSIS - AUTOMATED METHOD 11/11/2024 3:44 PM [facility] Glucose, Urine Negative Negative mg/dL LAB URINALYSIS - AUTOMATED METHOD 11/11/2024 3:44 PM [facility] Ketones, Urine Trace(A) Negative mg/dL LAB URINALYSIS - AUTOMATED METHOD 11/11/2024 3:44 PM [facility] Urobilinogen, Urine 0.2 0.2 - 1.0 mg/dL LAB URINALYSIS - AUTOMATED METHOD 11/11/2024 3:44 PM [facility] Bilirubin, Urine Negative Negative LAB URINALYSIS - AUTOMATED METHOD 11/11/2024 3:44 PM [facility] Blood, Urine Negative Negative LAB URINALYSIS - AUTOMATED METHOD 11/11/2024 3:44 PM [facility] RBC, Urine 3.1 0 - 4 /HPF LAB URINALYSIS - AUTOMATED METHOD 11/11/2024 3:44 PM [facility] WBC, Urine 1.6 0 - 4 /HPF LAB URINALYSIS - AUTOMATED METHOD 11/11/2024 3:44 PM EDT [facility] Squamous Epithelial, Urine 26 0 - 60 /LPF LAB URINALYSIS - AUTOMATED METHOD 11/11/2024 3:44 PM EDT [facility] Bacteria, Urine Negative Negative /HPF LAB URINALYSIS - AUTOMATED METHOD 11/11/2024 3:44 PM EDT [facility] Hyaline Casts, Urine 0.8 0 - 3 /LPF LAB URINALYSIS - AUTOMATED METHOD 11/11/2024 3:44 PM EDT [facility] Urine Urine specimen obtained by clean catch procedure / Unknown Non-blood Collection / Unknown 11/11/2024 3:03 PM EDT 11/11/2024 3:26 PM EDT Man Cornelius DO LAB URINE ORDERABLES Final Res ult [facility] [address] [place] [address], [place] [phone] * POCT Glucose, blood (11/11/2024 1:02 PM EDT) Only the most recent of2 resultswithin the time period is included. Pathologist [facility] Glucose POCT 96 70 - 100 mg/dL 11/11/2024 1:03 PM EDT [facility] Blood Capillary blood specimen / Unknown 11/11/2024 1:02 PM EDT 11/11/2024 1:04 PM EDT us Generic Provider Poct LAB POINT OF CARE TEST DOCKED DEVICE UNSOLICITED RESULTS Final Result Performing Organization Address City/[facility]/ZIP Co de Phone Number [facility] [address] [place] [address], [place] [phone] * (ABNORMAL) Hemoglobin A1c (11/11/2024 12:10 PM EDT) [facility] Hemoglobin A1C 6.7(H) <6.5 % LAB CHEMISTRY METHOD 11/11/2024 10:18 PM EDT [facility] Mean Bld Glu Estim. 146 mg/dL LAB CHEMISTRY METHOD 11/11/2024 10:18 PM EDT [facility] Blood Venous blood specimen / Unknown Venipuncture / Unknown 11/11/2024 12:10 PM EDT 11/11/2024 12:17 PM EDT Jojo GREENWOOD LAB BLOOD ORDERABLES Final Re sult Performing Organization Address City/[facility]/ZIP Co de Phone Number [facility] [address] [place] [address], * Troponin I high sensitivity (11/09/2024 8:26 PM EDT) Only the most recent of2 resultswithin the time period is included. [facility] High Sensitivity Troponin I 6 <=54 ng/L LAB CHEMISTRY METHOD 11/09/2024 9:10 PM EDT [facility] Blood Venous blood specimen / Unknown Venipuncture / Unknown 11/09/2024 8:26 PM EDT 11/09/2024 8:33 PM EDT Narrative [facility] - 11/09/2024 9:10 PM EDT High levels of biotin in samples may falsely decrease hsTroponin values. Use caution when interpreting hsTroponin results in patients taking biotin who exhibit renal impairment (eGFR <60) or in patients taking more than 20 mg/day of biotin. Mook Irizarry MD LAB BLOOD ORDERABLES Final Result Performing Organization Address 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 Care Teams Concrete Batcher Relationship Specialty Start Date End Date Henrique Soler MD [address] [place] [address] [address] [place] PCP - General Internal Medicine 06/18/14
== END 2025-01-19 08:27 | disposition home or self-care (01) ==
PROVIDERS: PCP Internal Medicine; Visit Provider Physician Assistant
DX: R60.0 Localized edema (principal)

== ENCOUNTER 2025-01-19 07:51 | Outpatient (REF) | payer OTHER, SELFPAY ==
[2025-01-19 10:19] LABS: MANUAL DIFF FLAG NO
[2025-01-19 10:33] LABS: Hematocrit 41.9 % (37.0-47.0); Hemoglobin 13.5 g/dl (12.0-16.0); Imm Gran Abs Auto 0.02 X10*3/uL (0.00-0.03); Imm Gran Pct Auto 0.4 % (0.0-0.4); Lymphocytes Absolute Auto 2.1 X10*3/uL (1.2-4.9); Mean Corpuscular HGB Conc 32.2 g/dl (31.0-35.0); Mean Corpuscular Hemoglobin 28.6 pg (27.0-33.0); Mean Corpuscular Volume 88.8 fL (80.0-98.0); NRBC Abs Auto 0.000 X10*3/uL (0.0-0.012); NRBC Pct Auto 0.0 /100WBC (0.0-0.2); Platelet Count 254 X10*3/uL (160-400); Red Blood Count 4.72 X10*6/uL (4.20-5.50); White Blood Count 5.7 X10*3/uL (4.8-10.8)
[2025-01-19 10:53] LABS: Alanine Aminotransferase 22 U/L (0-31); Albumin Level 4.1 g/dL (3.5-5.0); Alkaline Phosphatase 91 U/L (39-117); Anion Gap 11 (12-20); Aspartate Amino Transferase 24 U/L (5-31); Blood Urea Nitrogen 24 mg/dL (9-16); Calcium 9.1 mg/dL (8.4-10.2); Carbon Dioxide 28 mmol/L (22-29); Chloride 107 mmol/L (96-108); Estimated Glomerular Filt Rate 60; Potassium 4.8 mmol/L (3.3-5.1); Sodium 141 mmol/L (135-145); Total Protein 7.4 g/dL (6.5-8.0)
[2025-01-19 11:09] LABS: B Type Natriuretic Peptide 39 pg/mL (<100)
== END 2025-01-19 07:52 | disposition home or self-care (01) ==
LOC: HO.HMGCLDS 07:51
PROVIDERS: PCP Internal Medicine; Visit Provider Physician Assistant
DX: M79.604 Pain in right leg (principal); M79.605 Pain in left leg; R60.0 Localized edema; R11.10 Vomiting, unspecified
CPT/HCPCS: 36415; 80053; 83880; 85025; 99212

== ENCOUNTER → 2025-01-21 10:30 | Outpatient (BNV) | payer OTHER, SELFPAY | PROVIDERS: PCP Internal Medicine; Visit Provider Internal Medicine | DX: Z12.31 Encounter for screening mammogram for malignant neoplasm of breast (principal) | CPT/HCPCS: 77063; 77067 ==

== ENCOUNTER 2025-01-21 10:37 | Outpatient (REF) | payer OTHER, SELFPAY ==
--- OUTSIDE RECORDS SUMMARY | 2025-01-21 11:08 | XMS_ITS | Clinical Summary ---
Author Organization [facility] Address [address] [place] [phone] Phone Care Team Providers Care Belt Worker Name Role Phone Henrique Soler MD Primary [...] - 11/25/2024 3:42 PM EDT Hospital Encounter [facility] [address] [place] [phone] Christophe Hilton MD Neenan, Kevin P, DO Bukalo, Nermina, MD Bell, Alistair A, MD Fall, initial encounter (Primary Dx); Acute cystitis without hematuria; Dizziness Discharge Disposition: [place] [facility] [place]/11/2024 12:50 PM EDT - 11/13/2024 5:06 PM EDT Hospital Encounter [facility] [address] [place] [phone] Man Cornelius, Tyshawn Edwards MD Santoyo-Pacheco, Omar D, MD Dizziness (Primary Dx) Discharge Disposition: [place] [facility] [place]/09/2024 6:15 PM EDT - 11/10/2024 12:29 AM EDT Emergency [facility] Emergency [address] [place] [phone] Acute cystitis without hematuria (Primary Dx); Dizziness [...] Complete blood count (11/25/2024 6:03 AM EDT) [facility] Signature WBC 5.7 4.8 - 10.8 K/[facility] LAB HEMETOLOGY METHOD 11/25/2024 7:10 AM EDT [facility] RBC 4.60 3.80 - 4.80 M/mcL LAB HEMETOLOGY METHOD 11/25/2024 7:10 AM [facility] Hemoglobin 13.2 11.5 - 16.0 g/dL LAB HEMETOLOGY METHOD 11/25/2024 7:10 AM [facility] Hematocrit 42.1 35.0 - 47.0 % LAB HEMETOLOGY METHOD 11/25/2024 7:10 AM [facility] MCV 91.1 79.0 - 98.0 FL LAB HEMETOLOGY METHOD 11/25/2024 7:10 AM [facility] MCH 28.6 27.0 - 32.0 pcg LAB HEMETOLOGY METHOD 11/25/2024 7:10 AM [facility] MCHC 31.4(L) 32.0 - 37.0 g/dL LAB HEMETOLOGY METHOD 11/25/2024 7:10 AM [facility] RDW 14.6 11.0 - 15.0 % LAB HEMETOLOGY METHOD 11/25/2024 7:10 AM [facility] Platelets 190 130 - 400 K/mcL LAB HEMETOLOGY METHOD 11/25/2024 7:10 AM [facility] MPV 12.2(H) 7.0 - 11.0 FL LAB HEMETOLOGY METHOD 11/25/2024 7:10 AM [facility] NRBC 0.0 <1.0 % LAB HEMETOLOGY METHOD 11/25/2024 7:10 AM [facility] NRBC Absolute 0.00 <0.10 K/mcL LAB HEMETOLOGY METHOD 11/25/2024 7:10 AM [facility] Blood Venous blood specimen / Unknown Venipuncture / Unknown 11/25/2024 6:03 AM EDT 11/25/2024 6:49 AM EDT us Cindy Perez MD LAB BLOOD ORDERABLES Final Res ult [facility] [address] [place] [address], [place] [phone] * (ABNORMAL) Basic metabolic panel (11/25/2024 6:03 AM EDT) Only the most recent of5 resultswithin the time period is included. Sodium 139 133 - 145 mmol/L LAB CHEMISTRY METHOD 11/25/2024 7:26 AM [facility] Potassium 4.2 3.5 - 5.5 mmol/L LAB CHEMISTRY METHOD 11/25/2024 7:26 AM [facility] Chloride 108 96 - 110 mmol/L LAB CHEMISTRY METHOD 11/25/2024 7:26 AM [facility] CO2 27 21 - 32 mmol/L LAB CHEMISTRY METHOD 11/25/2024 7:26 AM [facility] Anion Gap 4 3 - 11 LAB CHEMISTRY METHOD 11/25/2024 7:26 AM [facility] Glucose 172(H) 70 - 100 mg/dL LAB CHEMISTRY METHOD 11/25/2024 7:26 AM [facility] BUN 14 5 - 25 mg/dL LAB CHEMISTRY METHOD 11/25/2024 7:26 AM [facility] Creatinine 0.91 0.50 - 1.10 mg/dL LAB CHEMISTRY METHOD 11/25/2024 7:26 AM [facility] eGFR 69 >=60 mL/min/1. 73m2 LAB CHEMISTRY METHOD 11/25/2024 7:26 AM [facility] Comment:Calculation based on the Chronic Kidney Disease Epidemiology Collaboration (CKD-EPI) equation refit without adjustment for race. BUN/Creatinine Ratio 15.4 LAB CHEMISTRY METHOD 11/25/2024 7:26 AM [facility] Calcium 8.5 8.5 - 10.5 mg/dL LAB CHEMISTRY METHOD 11/25/2024 7:26 AM EDT [facility] Blood Venous blood specimen / Unknown Venipuncture / Unknown 11/25/2024 6:03 AM EDT 11/25/2024 6:49 AM EDT Cindy Perez MD LAB BLOOD ORDERABLES Final Res ult Performing Organization Address City/[facility]/ZIP Co de Phone Number [facility] [address] [place] [address], [place] [phone] * (ABNORMAL) Valproic acid level, total (11/24/2024 7:37 PM EDT) Only the most recent of2 resultswithin the time period is included. Pathologist [facility] Valproic Acid, Total <3(L) 50 - 100 mcg/mL LAB CHEMISTRY METHOD 11/24/2024 8:30 PM EDT [facility] Blood Venous blood specimen / Unknown Venipuncture / Unknown 11/24/2024 7:37 PM EDT 11/24/2024 8:01 PM EDT us Lilli GREENWOOD LAB BLOOD ORDERABLES Final Result Performing Organization Address [facility]/ZIP Co de Phone Number [facility] [address] [place] [address], [place] [phone] * (ABNORMAL) Urinalysis with reflex microscopic and culture (11/24/2024 6:03 PM EDT) Only the most recent of3 resultswithin the time period is included. Specific [place] Urine 1.021 1.003 - 1.030 LAB URINALYSIS - AUTOMATED METHOD 11/24/2024 6:33 PM EDT [facility] pH, Urine 5.5 5.0 - 8.0 pH LAB URINALYSIS - AUTOMATED METHOD 11/24/2024 6:33 PM [facility] Leukocytes, Urine Trace(A) Negative LAB URINALYSIS - AUTOMATED METHOD 11/24/2024 6:33 PM [facility] Nitrite, Urine Positive(A) Negative LAB URINALYSIS - AUTOMATED METHOD 11/24/2024 6:33 PM [facility] Protein, Urine Negative <=Trace mg/dL LAB URINALYSIS - AUTOMATED METHOD 11/24/2024 6:33 PM [facility] Glucose, Urine Negative Negative mg/dL LAB URINALYSIS - AUTOMATED METHOD 11/24/2024 6:33 PM [facility] Ketones, Urine Negative Negative mg/dL LAB URINALYSIS - AUTOMATED METHOD 11/24/2024 6:33 PM [facility] Urobilinogen , Urine 0.2 0.2 - 1.0 mg/dL LAB URINALYSIS - AUTOMATED METHOD 11/24/2024 6:33 PM [facility] Bilirubin, Urine Negative Negative LAB URINALYSIS - AUTOMATED METHOD 11/24/2024 6:33 PM [facility] Blood, Urine Trace(A) Negative LAB URINALYSIS - AUTOMATED METHOD 11/24/2024 6:33 PM [facility] RBC, Urine 2.6 0 - 4 /HPF LAB URINALYSIS - AUTOMATED METHOD 11/24/2024 6:33 PM [facility] WBC, Urine 7.6(H) 0 - 4 /HPF LAB URINALYSIS - AUTOMATED METHOD 11/24/2024 6:33 PM [facility] Squamous Epithelial, Urine 36 0 - 60 /LPF LAB URINALYSIS - AUTOMATED METHOD 11/24/2024 6:33 PM [facility] Bacteria, Urine Many(A) Negative /HPF LAB URINALYSIS - AUTOMATED METHOD 11/24/2024 6:33 PM [facility] Hyaline Casts, Urine 4.4(H) 0 - 3 /LPF LAB URINALYSIS - AUTOMATED METHOD 11/24/2024 6:33 PM EDT [facility] Urine Urinary bladder structure / Unknown Non-blood Collection / Unknown 11/24/2024 6:03 PM EDT 11/24/2024 6:16 PM EDT [facility] URINE ORDERABLES Final Result Performing Organization Address [facility] de Phone Number [facility] [address] [place] [address], [place] [phone] * Mercedes urine culture tube (11/24/2024 6:03 PM EDT) Only the most recent of4 resultswithin the time period is included. Extra Tube Hold for add-ons. 11/24/2024 8:01 PM EDT [facility] Comment:Auto resulted. Urine Urinary bladder structure / Unknown Non-blood Collection / Unknown 11/24/2024 6:03 PM EDT 11/24/2024 6:16 PM EDT Lilli Babcock [facility] URINE ORDERABLES Final Result Performing Organization Address [facility] de Phone Number [facility] [address] [place] [address], [place] [phone] * (ABNORMAL) Culture urine (11/24/2024 6:03 PM EDT) Only the most recent of3 resultswithin the time period is included. Culture, Urine 50,000-100,000 CFU/mL Escherichia coli(A) SCOTT 11/27/2024 9:48 AM EDT [facility] Comment: The organism value for [...] GENERAL ORDERABLES Final Result Performing Organization Address City/State/[facility] Co de Phone Number [facility] [address] [place] [address], * CT Head wo Contrast (11/24/2024 4:03 PM EDT) Anatomical Region Laterality Modality Head and Neck Computed Tomogra phy 11/24/2024 4:12 PM EDT Impressions 11/24/2024 4:17 PM EDT NO ACUTE INTRACRANIAL ABNORMALITY. -------- FINAL REPORT -------- Dictated By: Jake Chambers Dictated Date: 11/24/2024 16:12 ET Assigned Physician: Jake Chambers Reviewed and Electronically Signed By: Jake Chambers Signed Date: 11/24/2024 16:17 ET Workstation ID: [id number] Transcribed By: Self Edit Transcribed Date: 11/24/2024 [...] -------- FINAL REPORT -------- Dictated By: Jake Chamebrs Dictated Date: 11/24/2024 16:12 ET Assigned Physician: Jake Chambers Reviewed and Electronically Signed By: Jake Chambers Signed Date: 11/24/2024 16:17 ET Workstation ID: [id number] Transcribed By: Self Edit Transcribed Date: 11/24/2024 [...] Signed Date: 11/24/2024 15:37 ET Workstation ID: [id number] Transcribed By: Self Edit Transcribed Date: 11/24/2024 15:30 ET Narrative 11/24/2024 3:37 PM EDT History: Pelvic fracture Technique: Volumetric imaging through the pelvis without IV contrast obtained in a [employer] light speed VCT scanner. Dose reduction techniques [...] the pelvis without IV contrastobtained in a [employer] light speed VCT scanner. Dose reduction techniquesutilized [...] Signed Date: 11/24/2024 15:37 ET Workstation ID: [id number] Transcribed By: Self Edit Transcribed Date: 11/24/2024 [...] Signed Date: 11/24/2024 12:48 ET Workstation ID: [id number] Transcribed By: Self Edit Transcribed Date: 11/24/2024 [...] Signed Date: 11/24/2024 12:48 ET Workstation ID: [id number] Transcribed By: Self Edit Transcribed Date: 11/24/2024 12:47 ET us Christophe SMITH XR PROCEDURES Final Result * ECG 12 lead (11/24/2024 11:49 AM EDT) Only the most recent of3 resultswithin the time period is included. Pathologist [facility] Ventricular Rate ECG 76 BPM GEMUSE Atrial Rate 76 BPM GEMUSE P-R Interval 194 ms GEMUSE QRS Duration 82 ms GEMUSE Q-T Interval 398 ms GEMUSE QTc 447 ms GEMUSE P Wave [place] 44 degrees GEMUSE R [place] -9 degrees GEMUSE T [place] 28 degrees GEMUSE ECG Interpretation Normal sinus [...] of4 resultswithin the time period is included. [facility] WBC 5.0 4.8 - 10.8 K/mcL LAB HEMETOLOGY METHOD 11/24/2024 12:48 PM EDT [facility] RBC 4.90(H) 3.80 - 4.80 M/mcL LAB HEMETOLOGY METHOD 11/24/2024 12:48 PM EDT [facility] Hemoglobin 14.0 11.5 - 16.0 g/dL LAB HEMETOLOGY METHOD 11/24/2024 12:48 PM EDT [facility] Hematocrit 43.8 35.0 - 47.0 % LAB HEMETOLOGY METHOD 11/24/2024 12:48 PM EDT [facility] MCV 90.3 79.0 - 98.0 FL LAB HEMETOLOGY METHOD 11/24/2024 12:48 PM EDT [facility] MCH 28.9 27.0 - 32.0 pcg LAB HEMETOLOGY METHOD 11/24/2024 12:48 PM EDT [facility] MCHC 32.0 32.0 - 37.0 g/dL LAB HEMETOLOGY METHOD 11/24/2024 12:48 PM EDT [facility] RDW 14.5 11.0 - 15.0 % LAB HEMETOLOGY METHOD 11/24/2024 12:48 PM EDT [facility] Platelets 205 130 - 400 K/mcL LAB HEMETOLOGY METHOD 11/24/2024 12:48 PM EDT [facility] MPV 12.3(H) 7.0 - 11.0 FL LAB HEMETOLOGY METHOD 11/24/2024 12:48 PM EDT [facility] NRBC 0.0 <1.0 % LAB HEMETOLOGY METHOD 11/24/2024 12:48 PM EDT [facility] NRBC Absolute 0.00 <0.10 K/mcL LAB HEMETOLOGY METHOD 11/24/2024 12:48 PM EDT [facility] Neutrophils Relative 30.5 % LAB HEMETOLOGY METHOD 11/24/2024 12:48 PM EDT [facility] Lymphocytes Relative 55.5 % LAB HEMETOLOGY METHOD [facility] Monocytes Relative 10.6 % LAB HEMETOLOGY METHOD 11/24/2024 12:48 PM EDT [facility] Eosinophils Relative 2.6 % LAB HEMETOLOGY METHOD 11/24/2024 12:48 PM EDT [facility] Basophils Relative 0.6 % LAB HEMETOLOGY METHOD 11/24/2024 12:48 PM EDT [facility] Immature Granulocytes Relative 0.2 % LAB HEMETOLOGY METHOD 11/24/2024 12:48 PM EDT [facility] Neutrophils Absolute 1.52 1.50 - 7.00 K/mcL LAB HEMETOLOGY METHOD 11/24/2024 12:48 PM EDT [facility] Lymphocytes Absolute 2.77 1.00 - 5.00 K/mcL LAB HEMETOLOGY METHOD 11/24/2024 12:48 PM EDT [facility] Monocytes Absolute 0.53 0.20 - 1.00 K/mcL LAB HEMETOLOGY METHOD 11/24/2024 12:48 PM EDT [facility] Eosinophils Absolute 0.13 0.00 - 0.50 K/mcL LAB HEMETOLOGY METHOD 11/24/2024 12:48 PM EDT [facility] Basophils Absolute 0.03 0.00 - 0.20 K/mcL LAB HEMETOLOGY METHOD 11/24/2024 12:48 PM EDT [facility] Immature Granulocytes Absolute 0.01 0.00 - 0.03 K/mcL LAB HEMETOLOGY METHOD 11/24/2024 12:48 PM EDT [facility] Blood Venous blood specimen / Unknown Venipuncture / Unknown 11/24/2024 11:29 AM EDT 11/24/2024 12:31 PM EDT Christophe Hilton MD LAB BLOOD ORDERABLES Final Resu lt [facility] [address] [place] [address], * MR Brain wo Contrast (11/12/2024 4:40 [...] Signed Date: 11/12/2024 17:10 ET Workstation ID: [id number] Transcribed By: Self Edit Transcribed Date: 11/12/2024 [...] Signed Date: 11/12/2024 17:10 ET Workstation ID: [id number] Transcribed By: Self Edit Transcribed Date: 11/12/2024 16:57 ET us Jojo GREENWOOD IMG MRI PROCEDURES Final Resu lt * (ABNORMAL) Lipid panel with reflex to direct LDL (11/12/2024 6:15 AM EDT) Cholesterol 203(H) 0 - 200 mg/dL LAB CHEMISTRY METHOD 11/12/2024 8:03 AM EDT [facility] Triglycerides 80 0 - 150 mg/dL LAB CHEMISTRY METHOD 11/12/2024 8:03 AM EDT [facility] HDL 71 >=40 mg/dL LAB CHEMISTRY METHOD 11/12/2024 8:03 AM EDT [facility] LDL Calculated 116(H) 0 - 100 mg/dL LAB CHEMISTRY METHOD 11/12[facility]2024 8:[facility] VLDL Cholesterol Randy 16 mg/dL LAB CHEMISTRY METHOD 11/12/2024 8:03 AM [facility] Non HDL Chol. (LDL+VLDL) 132 <145 mg/dL LAB CHEMISTRY METHOD 11/12/2024 8:03 AM EDT [facility] Chol/HDL Ratio 2.9 0.0 - 4.4 LAB CHEMISTRY METHOD 11/12/2024 8:03 AM [facility] Blood Venous blood specimen / Unknown Venipuncture / Unknown 11/12/2024 6:15 AM EDT 11/12/2024 6:58 AM EDT us Jojo GREENWOOD LAB BLOOD ORDERABLES Final Re sult [facility] [address] [place] [address], * Magnesium (11/12/2024 6:15 AM EDT) Only the most recent of3 resultswithin the time period is included. Magnesium 1.9 1.9 - 2.6 mg/dL LAB CHEMISTRY METHOD 11/12/2024 8:03 AM EDT [facility] Blood Venous blood specimen / Unknown Venipuncture / Unknown 11/12/2024 6:15 AM EDT 11/12/2024 6:58 AM EDT us Jojo GREENWOOD LAB BLOOD ORDERABLES Final Re sult [facility] [address] [place] [address], * CT Angio Head/Neck wo and/or w [...] Signed Date: 11/11/2024 16:54 ET Workstation ID: [id number] Transcribed By: Self Edit Transcribed Date: 11/11/2024 [...] Omnipaque 370 injected. Scan was analyzed using [employer] Contact AI based computer aided triage software. [...] left ELENA. Vertebrobasilar system is patent. Proximal customer experience leader are patent. Major dural venous sinuses opacify normally with contrast. Extracranial structures are unremarkable. Degenerative changes in the bones. Procedure Note Jake Chambers MD - 11/11/2024 PROCEDURE: CTA HEAD AND NECK INDICATION: Neuro deficit, acute, stroke suspected TECHNIQUE: CTA of the head and neck with intravenous contrast. Multiplanarreformats. The examination was performed utilizing dose reductiontechniques.3-D or MIP images were produced with postprocessing on an[employer] computer workstation. 90cc Omnipaque 370 injected. Scan wasanalyzed using [employer] Contact AI based computer aided triage software. [...] left ELENA. Vertebrobasilar system is patent. Proximal customer experience leader are patent. Major dural venous sinuses opacify normally with contrast. Extracranial structures are unremarkable. Degenerative changes in thebones. IMPRESSION: NO ACUTE ABNORMALITY. -------- FINAL REPORT -------- Dictated By: Jake Chambers Dictated Date: 11/11/2024 16:51 ET Assigned Physician: Jake Chambers Reviewed and Electronically Signed By: Jake Chambers Signed Date: 11/11/2024 16:54 ET Workstation ID: [id number] Transcribed By: Self Edit Transcribed Date: 11/11/2024 16:51 ET us Man Cornelius DO IMG CT PROCEDURES Final Result * (ABNORMAL) Urinalysis with reflex microscopic (11/11/2024 3:03 PM EDT) Specific [place] Urine 1.019 1.003 - 1.030 LAB URINALYSIS - AUTOMATED METHOD 11/11/2024 3:44 PM [facility] pH, Urine 6.0 5.0 - 8.0 pH LAB URINALYSIS - AUTOMATED METHOD 11/11/2024 3:44 PM [facility] Leukocytes, Urine Trace(A) Negative LAB URINALYSIS - AUTOMATED METHOD 11/11/2024 3:44 PM [facility] Nitrite, Urine Negative Negative LAB URINALYSIS - AUTOMATED METHOD 11/11/2024 3:44 PM [facility] Protein, Urine Negative <=Trace mg/dL LAB URINALYSIS - AUTOMATED METHOD 11/11/2024 3:44 PM [facility] Glucose, Urine Negative Negative mg/dL LAB URINALYSIS - AUTOMATED METHOD 11/11/2024 3:44 PM [facility] Ketones, Urine Trace(A) Negative mg/dL LAB URINALYSIS - AUTOMATED METHOD 11/11/2024 3:44 PM [facility] Urobilinogen, Urine 0.2 0.2 - 1.0 mg/dL LAB URINALYSIS - AUTOMATED METHOD 11/11/2024 3:44 PM [facility] Bilirubin, Urine Negative Negative LAB URINALYSIS - AUTOMATED METHOD 11/11/2024 3:44 PM [facility] Blood, Urine Negative Negative LAB URINALYSIS - AUTOMATED METHOD 11/11/2024 3:44 PM [facility] RBC, Urine 3.1 0 - 4 /HPF LAB URINALYSIS - AUTOMATED METHOD 11/11/2024 3:44 PM [facility] WBC, Urine 1.6 0 - 4 /HPF LAB URINALYSIS - AUTOMATED METHOD 11/11/2024 3:44 PM EDT [facility] Squamous Epithelial, Urine 26 0 - 60 /LPF LAB URINALYSIS - AUTOMATED METHOD 11/11/2024 3:44 PM EDT [facility] Bacteria, Urine Negative Negative /HPF LAB URINALYSIS - AUTOMATED METHOD 11/11/2024 3:44 PM EDT [facility] Hyaline Casts, Urine 0.8 0 - 3 /LPF LAB URINALYSIS - AUTOMATED METHOD 11/11/2024 3:44 PM EDT [facility] Urine Urine specimen obtained by clean catch procedure / Unknown Non-blood Collection / Unknown 11/11/2024 3:03 PM EDT 11/11/2024 3:26 PM EDT Man Cornelius DO LAB URINE ORDERABLES Final Res ult [facility] [address] [place] [address], [place] [phone] * POCT Glucose, blood (11/11/2024 1:02 PM EDT) Only the most recent of2 resultswithin the time period is included. Pathologist [facility] Glucose POCT 96 70 - 100 mg/dL 11/11/2024 1:03 PM EDT [facility] Blood Capillary blood specimen / Unknown 11/11/2024 1:02 PM EDT 11/11/2024 1:04 PM EDT us Generic Provider Poct LAB POINT OF CARE TEST DOCKED DEVICE UNSOLICITED RESULTS Final Result Performing Organization Address City/[facility]/ZIP Co de Phone Number [facility] [address] [place] [address], [place] [phone] * (ABNORMAL) Hemoglobin A1c (11/11/2024 12:10 PM EDT) [facility] Hemoglobin A1C 6.7(H) <6.5 % LAB CHEMISTRY METHOD 11/11/2024 10:18 PM EDT [facility] Mean Bld Glu Estim. 146 mg/dL LAB CHEMISTRY METHOD 11/11/2024 10:18 PM EDT [facility] Blood Venous blood specimen / Unknown Venipuncture / Unknown 11/11/2024 12:10 PM EDT 11/11/2024 12:17 PM EDT Jojo GREENWOOD LAB BLOOD ORDERABLES Final Re sult Performing Organization Address City/[facility]/ZIP Co de Phone Number [facility] [address] [place] [address], * Troponin I high sensitivity (11/09/2024 8:26 PM EDT) Only the most recent of2 resultswithin the time period is included. [facility] High Sensitivity Troponin I 6 <=54 ng/L LAB CHEMISTRY METHOD 11/09/2024 9:10 PM EDT [facility] Blood Venous blood specimen / Unknown Venipuncture / Unknown 11/09/2024 8:26 PM EDT 11/09/2024 8:33 PM EDT Narrative [facility] - 11/09/2024 9:10 PM EDT High levels of biotin in samples may falsely decrease hsTroponin values. Use caution when interpreting hsTroponin results in patients taking biotin who exhibit renal impairment (eGFR <60) or in patients taking more than 20 mg/day of biotin. Mook Irizarry MD LAB BLOOD ORDERABLES Final Result Performing Organization Address [facility]/ZIP Co de Phone Number [facility] [address] [place] [address], * SCR MAMMO BI INCL CAD (09/02/2017 [...] Most Recently Relevant to Health Maintenance Insurance [facility] MEDICARE Member Subscriber Plan / Payer (Ef fective 2022-Present) Name:SABRINA MCQUEEN Relation to Subscriber:Self Name:Sabrina Mcqueen Payer ID:[id number] Group ID:[id number] Type:Not on file Address: [place] [address] [address] [phone] Advance Directives Documents on File Type Date Recorded Patient [employer] Processor Expl anation Health Care Decision (hx) 04/01/2016 [...] currently active code status orders. Care Teams Belt Worker Relationship Specialty Start Date End Date Henrique Soler MD [address] [place] [address] [address] [place] PCP - General Internal Medicine 06/18/14
--- OUTSIDE RECORDS SUMMARY | 2025-01-21 11:08 | XMS_ITS | Data Portability ---
Author Organization [employer], [facility] Address [address] [place] [address] Care Team Providers Care Financial Investment Manager Name Role Phone HIM CCA OTHER BLAZE PATTEN Primary Care Provider [phone] Assessment Encounter Date Assessment Date Assessment LastModified by Organization Details LastModified Time 10/22/2023 10/22/2023 I provided real -time medical direction via phone for this encounter and was available for additional phone-based assistance as needed. I have reviewed and agree with the Assessment and Plan as documented by the Land Lease Information Clerk. Patient given the opportunity to ask questions. Our service contacted for an assessment of: Urinary symptoms As per above, patient with approximately 24 hours of dysuria, frequency. No history of frequent urinary tract infections. Denies fever, chills, abdominal pain, back pain, flank pain. Per route agent on the scene, Vital signs are stable [...] Assessment and Plan as documented by the Land Lease Information Clerk. Patient given the opportunity to ask questions. [...] she was out of the medication. Per route agent on the scene, Vital signs are stable patient is afebrile. Patient is nontoxic and a good historian of events. Per route agent on the scene she has a nonfocal [...] . Lab urinalys is, dipstick 2023 024 [facility], [address] [place] [address], [id number] 4 09:18:24 culture, urine 2023 024 [email or web address] [facility] (Centralized Electronic Ordering - All Locations), Patient Can Go To The Location Of Their Choice, [id number] 4 09:55:32 urinalys is, dipstick 2023 024 [facility], [address] [place] [address], [phone] 09:18:51 Referral None recorded . Procedures None recorded . Surgeries None recorded . Imaging None recorded . Medication Orders meclizin e 25 mg tablet [email or web address] [facility][id number], [address] [place], [address], 5 18:19:50 meclizin e 25 mg tablet [email or web address] [id number], [address] [place], [place], [id number], 5 18:19:56 meclizin e 25 mg tablet [email or web address] [facility] #[id number], [address] [place], [address], 5 18:23:15 levoflox acin 500 mg tablet 2023 024 [facility], [address] [place], [address], 4 21:23:53 lactated Ringers intraven ous solution 2022 023 [email or web address] [facility], [address] [place], [address], 3 12:22:06 Patient TargetsNo targets recorded. Patient InstructionsNo instructions recorded. Reason for Referral None Reported. Results Created Date Observation Date Name Description Value Unit Range Abnormal Flag Note LastModifiedBy Organization Detail LastModifiedTime 02/24/2002/23/2023 BMP, serum or plasm a BUN 19 Not Available [facility] [address], [address] 02/23/2023 19:45:16 02/24/20 23 02/23/2023 BMP, serum or plasm a CI- 99 Not Available [facility] [address], [phone] 02/23/2023 19:45:16 02/24/20 23 02/23/2023 BMP, serum or plasm a CRE 0.7 Not Available [facility] [address], [address] [place] [address] 02/23/2023 19:45:16 02/24/20 23 02/23/2023 BMP, serum or plasm a GLU 162 Not Available [facility] [address], [address] [place] [address] 02/23/2023 19:45:16 02/24/20 23 02/23/2023 BMP, serum or plasm a K+ 4.2 Not Available [facility] [address], [address] [place] [address] 02/23/2023 19:45:16 02/24/20 23 02/23/2023 BMP, serum or plasm a Na+ 139 Not Available [facility] [address], [address] [place] [address] 02/23/2023 19:45:16 02/24/20 23 02/23/2023 BMP, serum or plasm a tCO2 20 Not Available [facility] [address], [address] [place] [address] 02/23/2023 19:45:16 03/01/20 23 03/01/2023 BMP, serum or plasm a BUN 23 Not Available [facility] [address], [address] [place] [address] 03/01/2023 13:31:01 03/01/20 23 03/01/2023 BMP, serum or plasm a CRE 0.7 Not Available [facility] [address], [address] [place] [address] 03/01/2023 13:31:01 03/01/20 23 03/01/2023 BMP, serum or plasm a GLU 131 Not Available [facility] [address], [address] 03/01/2023 13:31:01 03/01/20 23 03/01/2023 BMP, serum or plasm a K+ 4.6 Not Available [facility] [address], [address] [place] [address] 03/01/2023 13:31:01 03/01/20 23 03/01/2023 BMP, serum or plasm a Na+ 140 Not Available [facility] [address], [address] [place] [address] 03/01/2023 13:31:01 03/01/20 23 03/01/2023 BMP, serum or plasm a tCO2 28 Not Available [facility] [address], [place], [address] 03/01/2023 13:31:01 Result Notes None recorded. Medical [...] Address Organization Details Last Updated DateTime 4 15706.6 g 152.4 cm 98.4 [degF] 96 % 96 % 14 /min 80 /min 124/80 mm[Hg] Not Available [facility] 4 21:21:02 Date Recorded Respiratory rate Body temperature Heart rate Oxygen saturation Oxygen saturation in Arterial blood by Pulse oximetry Systolic And Diastolic Provider Name and Address Organization Details Last Updated DateTime 5 18 /min 97.7 [degF] 71 /min 97 % 97 % 129/75 mm[Hg] Not Available [facility] 5 18:20:58 Date Recorded Oxygen saturation Oxygen saturation in Arterial blood by Pulse oximetry Respiratory rate Heart rate Body temperature Systolic And Diastolic Provider Name and Address Organization Details Last Updated DateTime 5 95 % 95 % 16 /min 83 /min 98 [degF] 138/98 mm[Hg] Not Available [facility] 5 18:17:10 Date Recorded Body temperature Respiratory rate Heart rate Oxygen saturation Oxygen saturation in Arterial blood by Pulse oximetry Systolic And Diastolic Provider Name and Address Organization Details Last Updated DateTime 3 97.9 [degF] 16 /min 99 /min 97 % 97 % 128/78 mm[Hg] Not Available [facility] 3 11:48:04 Date Recorded Body temperature Heart [...] SNOMED-CT Code Diagnosis ICD10 Code Diagnosis Note [id number] Kesha Beck MD Main - [address] [phone] 02/21/2023 15:44:06 02/22/2023 15:35:21 Dehydration 93247460 E86.0 [id number] Sajan Rueda MD [facility] - [address] [phone] 02/23/2023 18:33:42 02/24/2023 07:20:36 Dizziness [id number] R42 As noted, we were called to see this patient regarding concerns of dizziness/ unsteadine ss. Evaluation in the field was performed by my route agent colleague, as noted above, I provided real-time [...] uncertain etiology, ddx includes hypovolemi a, meds, AUTOMATIC PILOT MECHANIC or PNS process, including focal lesions, neuropathy [...] particular ly falling, confusion, face/arm/l eg weakness. [id number] Madelyn Robertson MD Main - [address] [phone] 03/01/2023 13:28:34 03/04/2023 11:06:40 Acute gastroenteritis 87131226 K52.9 Evaluation in the field was performed by my route agent colleague, as noted above, I provided real-time [...] shortness of breath, cough, chest pain, fever. [id number] Carmen Pemberton MD Main - [address] [phone] 03/02/2023 11:45:43 03/04/2023 11:11:38 Acute gastroenteritis [id number] K52.9 67 yo w/ gastroente ritis, seen [...] on Friday morning. Questions answered; pt and route agent agreeable with plan [id number] Jose Hawk MD Main - [facility] [address] [place] [phone] 04/06/2023 15:42:46 04/07/2023 08:17:20 Syncope and collapse [id number] R55 This 67-year-ol d female has had two episodes of syncope without warning in the past 24 hours. She did hit her head and now complains of head and neck pain. I recommende d that she go to the ER for further evaluation and treatment. The patient resisted this recommenda tion, so I instructed the route agent to try and change her mind. [id number] Alie Dillard MD Main - [facility] [address] [place] [phone] 10/22/2023 21:20:49 10/23/2023 11:15:53 Urinary symptoms 141557003 R39.9 [id number] Alie Dillard MD [facility] - [facility] [address] [place] [phone] 11/16/2024 18:20:56 11/16/2024 21:08:15 Dizziness [id number] R42 [id number] Madelyn Robertson MD Main - [facility] [address] [place] [phone] 11/20/2024 18:17:08 11/21/2024 18:14:07 Vertigo [id number] R42 Evaluation in the field was performed by my route agent colleague, as noted above, I provided real-time [...] Maradiaga Member ID Guarantor Name 11/16/2024 1 [facility] - DOS ON OR AFTER 2022 - DUAL ELIGIBLE - [facility] OPTIONS AND ONE CARE (MEDICARE REPLACEMENT/ADV ANTAGE - HMO) Sabrina Mcqueen [id number] Sabrina Mcqueen Notes Date Note Type Note [...] POC bloodwork drawn, unremarkable. Sent results to [facility], [facility] contacted [facility] ordered 1L of NS and 4MG of zofran IVP. [facility] sent prescription for Zofran to pt's pharmacy. Pt educated on s/s warranting a 911 call/trip to the hospital. Pt advised to F/U with PCP or [facility] if symptoms persist or worsen. Shreyas TORRES ...................... ...................... ...................... ...................... ...................... ...................... ......... Land Lease Information Clerk Note From Man Bolton: Dispatched to the [...] CAOx4, airway open and patent. 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 Able to speak in full sentences, -JVD, -HEENT, pupils PERRL, and soft non tender/distended, skin PWD with good turgid, lung sounds clear an equal bilaterally. [facility] consulted. IV established. BMP conducted, 1L LR given. Red flags discussed. All times are approx. ...................... ...................... ...................... ...................... ...................... ...................... ......... Disposition: Nissa Pemberton MD [address] [place] [address],[address], [place], [address], [employer] 03/03/2023 12:22:18 04/06/2023 text/html [facility] Nursing Assessment: Chief Complaints: Syncope/Dizziness/Ligh theadedness, Falls PMH: COPD/Asthma Allergies: Unknown Comments: + dizziness since yesterday. Fall x2 yesterday and today. Unsteady gait due to dizziness. Unknown LOC. Possible head strike. c/o left wrist pain. Advised ED for further evaluation. Member declined ED after education but will accept [facility] visit first. Red flags reviewed. Instructed to call 911 for worsening symptoms. Jose Hawk MD [address] [place] [address],[address] [facility], [place], [phone], [employer] 04/06/2023 15:45:49 10/22/2023 text/html CRC Nurse Triage Notes (Morenita Dawson): Chief Complaints: Pain PMH: COPD/Asthma Allergies: Unknown Comments: Cymro speaking member. night monitor used. Verified name//address. Member reports left flank pain that is getting worse. Reports multiple falls. Last fall on Friday. Member states she was evaluated s/p falls. Denies fevers. Denies urinary symptoms. Denies chest pain or shortness of breath. Advised member to call 911 with worsening signs/symptoms. ...................... ...................... ...................... ...................... ...................... ...................... ......... Land Lease Information Clerk Note From Costa Nielsen: Patient conscious alert [...] sample culture to [facility] UA values to [facility]. [facility] orders levafloxacin 500 mg PO and will prescribe more to patients local pharmacy. Red flags and patient education discussed. Consent, signed and uploaded times two ...................... ...................... ...................... ...................... ...................... ...................... ......... Disposition: Fulfilled Alie Dillard MD [address] [place] [address],[address], [place], [address], [employer] 10/22/2023 21:25:11 11/16/2024 text/html CRC Nurse Triage [...] 68 y.o female complains of Dizziness, Weakness Cymro speaking patient reporting dizziness when turning head, [...] ...................... ...................... ...................... ...................... ...................... ...................... ......... Land Lease Information Clerk Note From Bonnie Morales: Sent to a [...] and treated for UTI and Vertigo at [facility]. Pt is still taking Keflex as [...] unremarkable; Extremities: unremarkable; Skin: pink, warm, dry; [facility] consulted and orders Meclizine 25mg PO. Meclizine 25mg PO administered. Pt advised to follow up with PCP again tomorrow. Red flags discussed. Pt has no further questions. [facility] Medication Orders: meclizine 25 mg tablet: Administered ...................... ...................... ...................... ...................... ...................... ...................... ......... [facility] Consulted: Alie Dillard ...................... ...................... ...................... ...................... ...................... ...................... ......... Disposition: Fulfilled Alie Dillard MD [address] [facility],[address], [place], [phone], [place] TADEO SAMUEL 11/16/2024 19:43:20 11/20/2024 text/html [...] ...................... ...................... ...................... ...................... ...................... ...................... ......... Land Lease Information Clerk Note From Chai Nunez: Encountered patient, supine in bed and conscious. Patient reports she has a history of vertigo for which she is treated with meclizine, was admitted from 11/11/24-11/13/[address] [facility] for said vertigo. Patient reports [...] Extremity is free of trauma and edema. [facility] contacted: recommends patient be transported to the emergency room since she lives by herself and is suffering falls due to her dizziness, despite taking meclizine as prescribed. [facility] additionally states if patient is refusing transport [...] ...................... ...................... ...................... ...................... ...................... ...................... ......... [facility] Consulted: Madelyn Robertson ...................... ...................... ...................... ...................... ...................... ...................... ......... Disposition: Fulfilled Madelyn Robertson MD [address] [place] [address],[address], [place], [phone], [facility] 11/20/2024 21:14:56 OBGyn Episode No OBEpisode recorded.
--- OUTSIDE RECORDS SUMMARY | 2025-01-21 11:08 | XMS_ITS | Clinical Summary ---
Author Organization [facility] Address [address] [place] [address] Care Team Providers Care Retail Sales Teammate Name Role Phone Henrique Soler MD Primary Care Provider Unava ilable Allergies Active Allergy Reactions Severity Noted Date Comments Codeine Rash/Dermatitis 07/10/2015 Kdc:Propoxyphene+Oketo Blue Fcf Rash/Dermatitis 07/10/2015 Ibuprofen Rash/Dermatitis 07/10/2015 Hhekkbllbb-Griimhgeja-Hucshowrmr Rash/Dermatitis 07/10/2015 Apap-Fd&C Red #40 Al Hagen-Oxycodone [...] HEPATITIS C SCREENING Completed 07/18/2015 Care Teams Retail Sales Teammate Relationship Specialty Start Date End Date Henrique Soler MD PCP - General Internal Medicine 04/01/18
== END 2025-01-21 10:38 | disposition home or self-care (01) ==
LOC: HO.MAMMO 10:37
PROVIDERS: PCP Internal Medicine; Visit Provider Internal Medicine
DX: Z12.31 Encounter for screening mammogram for malignant neoplasm of breast (principal)
CPT/HCPCS: 77063; 77067

== ENCOUNTER 2025-01-24 14:03 | Outpatient (AMB) | payer OTHER, SELFPAY ==
--- NOTE | 2025-01-24 14:04 | A.OFFPC_ITS ---
Vital Signs 01/24/25 14:05 Height 5 ft 6 in Weight 221 lb 6 oz BMI 35.7 BP 124/82 Blood Pressure Location Lt brachial Position Sitting Pulse 68 Pulse Source Pulse Oximeter Pulse Oximetry (%) 97 Oxygen Delivery Method Room Air Intake Visit Reasons: edema on both legs Hand Touch Up Painter Required: No Accompanied by: Self / Same As Patient Allergies codeine (Tylenol-Codeine #3) Allergy (Intermediate, Verified 01/24/25 15:16) Rash morphine Allergy (Intermediate, Verified 01/24/25 15:16) rash and itching nalbuphine (From Nubain) Allergy (Intermediate, Verified 01/24/25 15:16) Rash oxycodone (Percocet) Allergy (Intermediate, Verified 01/24/25 15:16) Rash propoxyphene (From Darvocet-N 100) Allergy (Intermediate, Verified 01/24/25 15:16) Rash tramadol (Ultram) Allergy (Intermediate, Verified 01/24/25 15:16) Rash ibuprofen (From Motrin) Allergy (Mild, Verified 01/24/25 15:16) RASH montelukast (Singulair) Allergy (Unknown, Verified 01/24/25 15:16) Unknown Medication List - Last Reconciled 01/24/25 by Henrique Soler MD [ADULT PULL-UPS -- MEDIUM SIZE As directed] [BED PADS As directed] bupropion HCl SR 200 mg PO BID buspirone 10 mg PO BID 30 days celecoxib (Celebrex) 200 mg PO BID 30 days cholecalciferol (vitamin D3) 50 mcg PO DAILY 90 days cyanocobalamin (vitamin B-12) 1,000 mcg PO DAILY 90 days divalproex 500 mg PO BID 30 days duloxetine 30 mg PO BID 30 days ergocalciferol (vitamin D2) (Vitamin D2) 1,250 mcg PO QWEEK [Heating Pad As directed] heating pads As directed [INCONTINENCE PADS Use as directed] [LEFT KNEE BRACE As directed] lemborexant (Dayvigo) mg PO DAILY loratadine 10 mg PO DAILY PRN 30 days lorazepam mg PO nortriptyline 25 mg PO BID 30 days pantoprazole 40 mg PO DAILY pregabalin 150 mg PO TID 30 days [QUAD CANE As directed] [QUAD CANE (lightweight) As directed] [RAISED TOILET SEAT As directed] [RIGHT KNEE BRACE As directed] [RIGHT THUMB SPLINT As directed] [RUBBER HANDLE/CHIPPING MACHINE OPERATOR for 4-pronged aluminum cane As directed] [RUBBER TIPS FOR QUAD CANE As directed] [Semi electric hospital bed As directed] trazodone 50 mg PO BEDTIME PRN 30 days Ventolin HFA 90 mcg/actuation (albuterol sulfate) 2 puffs inhalation Q4-6H PRN N S [WRIST BRACE (right wrist) - MEDIUM As directed] Tobacco use date assessed: 01/24/25 Fall risk assessment: 2 + Falls in past year Last assessed Fall Risk: 01/24/25 Dental Screening Dental Screen Date: 01/24/25 Did you have a dental visit in the last 12 months?: No Did you have a dental problem in the last 6 months where you did not have access to dental care?: No Was dental information given to patient?: No HPI edema on both legs HPI Details Patient comes in today for follow up of her recurrent bilateral lower extremity swelling - she is again accompanied by her stepdaughter, who acts as her soft crab shedder today and who is trying to step in to help with her overall care as much as she can Patient states that she continues to experience recurrent swelling of both legs, with her symptoms often more prominent later in the day and at night She denies any headaches or dizziness lately Denies any chest pains, no increased SOB No nausea/vomiting, no abdominal pain No change in bowel habits noted She had some labs done last week for further evaluation of her recent increased bilateral lower extremity swelling - to discuss her results Patient also brought in a copy of her head and neck CTA done at [facility] a couple of months ago in November 2024 that showed (+) incidentally an enhancing left thyroid nodule that warrants further investigation [facility] Medical History Folliculitis Pure hypercholesterolemia Allergic rhinitis Insomnia Multiple joint pain GERD without esophagitis Vitamin D deficiency Lumbar spondylosis Obesity (BMI 30-39.9) Migraine Primary osteoarthritis of both knees Urinary incontinence Rotator cuff tear, left Depression Asthma Fibromyalgia Non-toxic multinodular goiter Anxiety Surgical History Status post rotator cuff surgery S/P rotator cuff repair Status post right rotator cuff repair (~07/26/18) History of hysterectomy History of cholecystectomy History of laminectomy (~2009) Family History Father Diabetes Mother Medical history unknown Social History Household Members: None Housing: Apartment Do you presently have visiting nurse or other home services: No Alcohol intake: former Patient Tobacco Use Status: Never used Tobacco e-Cigarette/Vaping Use: Never Used Second Hand Smoke Exposure: No service: No Current occupational status: disabled Cognitive needs: Yes (cane) Hearing needs: No Vision needs: Yes (glasses) Questionnaire PHQ-9 Over the last 2 weeks, how often have you been bothered by any of the following problems? 1. Little interest or pleasure in doing things: more than half the days 2. Feeling down, depressed, or hopeless: more than half the days 3. Trouble falling or staying asleep, or sleeping too much: several days 4. Feeling tired or having little energy: more than half the days 5. Poor appetite or overeating: nearly every day 6. Feeling bad about yourself - or that you are a failure or have let yourself or your family down: more than half the days 7. Trouble concentrating on things, such as reading the newspaper or watching television: several days 8. Moving or speaking so slowly that other people could have noticed. Or the opposite - being so fidgety or restless that you have been moving around a lot more than usual: more than half the days 9. Thoughts that you would be better off or of hurting yourself in some way: not at all Total score: 15 Depression Screening Interpretation: Positive Depression Screening Follow-up: Existing condition and In treatment Depression Screening Done: Yes 57483 - PHQ-9 Billing: Yes Source: Developed by Drs. Lang Pacheco, Kelsey Lund, Filemon Grewal and colleagues, with an educational juvenal from [employer]. Thrive Questionnaire Date Thrive assessed: 01/24/25 I am a: Patient What is your living situation today?: I have a steady place to live Within the past 12 months, did the food you bought not last and you didn't have the money to get more?: Often true Within the past 12 months, did you worry whether your food would run out before you got money to buy more?: Often true Do you have trouble paying for medicines?: No Do you have trouble getting transportation to medical appointments?: No Do you have trouble paying your heating and electricity bill?: No Do you have trouble taking care of your child, family member or friend?: No Do you have trouble with day-to-day activities such as bathing, preparing meals, shopping, managing finances, etc.?: Yes Are you currently unemployed and looking for a job?: Yes Are you interested in more education?: No Please select the resources that you would like help with: Food Currently or been in a relationship where the following occur: No concerns reported THRIVE Score: 2 AUDIT C Alcohol Use Questionnaire (AUDIT-C) 1. How often do you have a drink containing alcohol?: Never 3. How often do you have six or more drinks on one occasion?: Never Total Score: 0 Score Reviewed/Action Taken: Yes FLACO-7 AMB Questionnaire FLACO-7 Date FLACO - 7 assessed: 01/24/25 Feeling nervous, anxious, or on edge: 2 = More than half the days Not being able to stop or control worryin = More than half the days Worrying too much about different things: 2 = More than half the days Trouble relaxin = More than half the days Being so restless that it is hard to sit still: 2 = More than half the days Becoming easily annoyed or irritable: 2 = More than half the days Feeling afraid as if something awful might happen: 0 = Not at all Total FLACO-7 score (0-4 normal; 5-9 mild; 10-14 moderate; 15-21 severe): 12 Source: Developed by Drs. Lang Pacheco, Kelsey Lund, Filemon Grewal and colleagues, with an educational juvenal from [employer]. Review of Systems Const Reports body aches (diffuse), Denies chills, Reports difficulty sleeping, Reports fatigue (increased), Denies fever(s) and Denies headache(s) ENT Denies dysphagia, Reports dizziness (recurrent/frequent although this has improved in the past couple of days), Denies otalgia, Denies headache(s), R eports neck pain (chronic), Denies odynophagia and Denies sore throat Card Denies chest pain, Denies irregular heart rhythm, Denies palpitations and Reports dyspnea on exertion (mild) Resp Denies chest congestion, Denies cough and Reports dyspnea on exertion (mild) GI Denies abdominal pain, Denies constipation, Denies dysphagia, Denies heartburn, Denies diarrhea, Denies nausea, Denies odynophagia and Denies vomiting Denies difficulty voiding, Denies dysuria, Denies urinary incontinence and De nies urinary urgency Musc Reports abnormal gait (unsteady ), Reports back pain (over the lower back (chronic)), Reports arthralgias (left shoulder - S/P surgery in 03/2021), Reports neck pain (chronic) and Reports stiffness (left shoulder) Skin/Breast Denies rash Neuro Reports abnormal gait (unsteady ), Reports dizziness (recurrent/frequent although this has improved in the past couple of days), Denies headache(s) and Denies paresthesias Psych Denies anxiety and Denies depression Endo Reports fatigue (increased) and Denies palpitations Corona/Lymph Denies easy bruising Physical exam (Primary Care) Vital Signs: Last Vital Signs Pulse 68 01/24/25 14:05 BP 124/82 01/24/25 14:05 Pulse Ox 97 01/24/25 14:05 Oxygen Delivery Method Room Air 01/24/25 14:05 BMI result Body Mass Index 35.7 Tobacco/Smoking Status: Tobacco use Status Tobacco use date assessed 01/24/25 01/24/25 14:16 Patient Tobacco Use Status Never used Tobacco 01/24/25 14:16 Tobacco use type 11/30/24 12:25 e-Cigarette/Vaping Use Never Used 01/24/25 14:16 PHQ-9: PHQ-9 Score PHQ-9: Total score 15 01/24/25 14:16 Depression Screening Interpretation: Positive Depression Screening Follow-up: Existing condition and In treatment Thrive Assessment: Date of Thrive Assessment Date Thrive assessed 01/24/25 01/24/25 14:16 Currently or been in a relationship where the following occur: No concerns reported Const General: no acute distress and alert HENMT Ears: TM's normal bilaterally and EAC's normal Throat: Yes posterior oropharynx normal and Yes tonsils normal (no TP congestion) Neck Neck: Yes supple and No lymphadenopathy Thyroid: Thyroid normal Resp Auscultation: clear to auscultation bilaterally, no rales and no wheezes Cardio Rate: regular rate Rhythm: regular rhythm Heart sounds: no murmurs GI Palpation (GI): Soft to palpation and nontender Auscultation: normal bowel sounds General: Yes no CVA tenderness Back/Spine/Pelvis Back: no CVA tenderness Cervical Spine: cervical muscular tenderness and Cervical spine tenderness Thoracic/Lumbar Spine: paraspinal muscle tenderness bilaterally in the upper thoracic, in the mid lumbar and in the lower lumbar and on the left greater than right and lumbar spinal tenderness Skin Rashes: no rashes Extrem General: No clubbing, No cyanosis and Yes pedal edema (trace, bilateral) Left upper extremity: shoulder/upper arm Details: tenderness Location: of the A- C joint and normal ROM; no swelling Results Reviewed Results Reviewed: Laboratory Tests 01/19/25 08:25 WBC 5.7 Hgb 13.5 Hct 41.9 Plt Count 254 Sodium 141 Potassium 4.8 Creatinine 0.93 Estimated GFR 60 Random Glucose 136 H Calcium 9.1 AST 24 ALT 22 B-Natriuretic Peptide 39 Total Protein 7.4 Albumin 4.1 Coding Level of Care Code Est Pt Level 4 (94272) Diagnoses Left thyroid nodule E04.1 Bilateral lower extremity edema R60.0 Lumbar spondylosis M47.816 Mild persistent asthma without complication J45.30 Asthma severity: mild Asthma persistence: persistent Asthma complication type: uncomplicated Migraine without status migrainosus, not intractable, unspecified migraine type G43.909 Migraine type: unspecified Status migrainosus presence: without status migrainosus Intractability: not intractable Fibromyalgia M79.7 Rotator cuff tear arthropathy of left shoulder M75.102; M12.812 Primary osteoarthritis of both knees M17.0 Allergic rhinitis, unspecified seasonality, unspecified trigger J30.9 Allergic rhinitis trigger: unspecified Allergic rhinitis seasonality: unspecified GERD without esophagitis K21.9 Vitamin D deficiency E55.9 Vitamin B12 deficiency E53.8 Insomnia, unspecified type G47.00 Insomnia type: unspecified Anxiety F41.9 Depression, unspecified depression type F32.9 Depression Type: unspecified Obesity (BMI 30-39.9) E66.9 Additional Codes PHQ-9 - 90116 - PHQ-9 Billing: Yes ([id number]) Assessment & Plan Assessment & Plan (1) Left thyroid nodule: Code(s): E04.1 - Nontoxic single thyroid nodule Category: Medical Plan: This was seen incidentally on head and neck CTA done at [facility] a couple of months ago in November 2024 - (+) enhancing left thyroid nodule and should be further evaluated with ultrasound and sampling if indicated Will send patient for thyroid US CARI for further evaluation Will also refer her to endocrinology for further evaluation and management, especially if tissue Bx or sampling is indicated (2) Bilateral lower extremity edema: Code(s): R60.0 - Localized edema Category: Medical Plan: Results of her labs done last week reviewed and discussed with patient - she is advised that her recent labs do not show any findings to help explain her recurrent bilateral lower extremity edema, which may be due to stasis She is reassured that her labs do not show any findings of renal or cardiac involvement with her recent recurrent lower extremity edema Will refer her to vascular surgery for further evaluation and management (3) Lumbar spondylosis: Code(s): M47.816 - Spondylosis without myelopathy or radiculopathy, lumbar region Category: Medical Plan: Reinforced activity and weight-lifting restrictions Continue Methocarbamol 750 mg TID PRN and Duloxetine 30 mg QD MRI of the lumbar spine last done in 05/2021 revealed s/p instrumented fusion at the L2-L3 level with laminectomy changes, with no significant canal or foraminal compromise, stable in appearance. Stable discogenic degenerative changes at multiple levels, with stable multilevel bilateral facet arthropathy. Multilevel disc bulging and foraminal disc protrusions are again noted, similar to the previous exam with no significant central spinal canal stenosis. No significant neural foraminal stenosis. No abnormal enhancement within the limitations of the study. Repeat lumbar spine x-rays done at [facility] last year showed stable post-op changes with no acute findings She was referred to physical therapy last year because of increased pain, especially over her left lower back, with radiation of pain down the left leg but it does not look like she was seen by PT as we have not received any updated correspondence on this Repeat x-rays of the lumbar spine done in August 2024 revealed (+) chronic changes with no acute findings She was also seeing pain management previously and was going to have a trial of ROSARIO soon as mentioned at her last visit but we have not received any updates on this since We referred her back to pain management previously for her increased low back pain and she was last seen by them in August 2024 - it appears that she was scheduled for a diagnostic bilateral L3-L4 DR L5 medial branch blocks with local and fluoroscopy last month but patient did not show up for her appointment Patient appears to be unable to keep up with her appointments as she does not seem to be able to recall them Have advised patient kennethdaughter to take charge of this is well and that she should try to reach out to pain management next door to scheduled patient's next follow-up with them CARI (4) Asthma: Code(s): J45.909 - Unspecified asthma, uncomplicated Category: Medical Qualifiers: Asthma severity: mild Asthma persistence: persistent Asthma complication type: uncomplicated Qualified Code(s): J45.30 - Mild persistent asthma, uncomplicated Plan: Controlled Continue Flovent HFA 110 mcg 1 inhalation BID and Albuterol HFA 2 puffs 4 times a day as needed; she also has Albuterol nebulization to use as needed (5) Migraine: Code(s): G43.909 - Migraine, unspecified, not intractable, without status migrainosus Category: Medical Qualifiers: Migraine type: unspecified Status migrainosus presence: without status migrainosus Intractability: not intractable Qualified Code(s): G43.909 - Migraine, unspecified, not intractable, without status migrainosus Plan: Stable on prophylactic Tx Continue Nortriptyline 25 mg Q BID Reinforced again avoidance of all potential migraine triggers (6) Fibromyalgia: Code(s): M79.7 - Fibromyalgia Category: Medical Plan: She is encouraged again on regular exercise and physical activity to help manage her fibromyalgia symptoms Continue Pregabalin 150 mg TID, Nortriptyline 25 mg BID and Duloxetine 30 mg BID She was seen at [facility] Rheumatology by Dr. Darnell many years ago and she has not been back in a few years She was referred back to [facility] rheumatology for further evaluation and management - was seen by Dr. Tavarez a few months ago and she was advised to continue on her current Rx with no further recommendations; was also advised to just follow up with her PCP (7) Rotator cuff tear arthropathy of left shoulder: Comment: S/P left rotator cuff surgery in September [address] Velázquez Code(s): M75.102 - Unspecified rotator cuff tear or rupture of left shoulder, not specified as traumatic; M12.812 - Other specific arthropathies, not elsewhere classified, left shoulder Category: Medical Plan: She was seen previously by orthopedics and was recommended to continue with gentle physical therapy of her left shoulder but patient states that this did not really help much Repeat MRI of the shoulder done at [facility] on 02/26/2024 revealed (+) mild glenohumeral joint osteoarthritis with joint effusion and diffuse synovitis. The rotator cuff repair and prior biceps tenodesis appear intact and there are no evidence of recurrent tear. There is mild supraspinatus and infraspinatus muscle atrophy. S/P acromioplasty Follow up with orthopedics as scheduled (8) Primary osteoarthritis of both knees: Code(s): M17.0 - Bilateral primary osteoarthritis of knee Category: Medical Plan: Follow up with orthopedics as scheduled Has knee braces that she wears as needed for added stability to her knees and to help reduce her knee pain (9) Allergic rhinitis: Code(s): J30.9 - Allergic rhinitis, unspecified Category: Medical Qualifiers: Allergic rhinitis trigger: unspecified Allergic rhinitis seasonality: unspecified Qualified Code(s): J30.9 - Allergic rhinitis, unspecified Plan: Continue Loratadine 10 mg QD PRN (10) GERD without esophagitis: Code(s): K21.9 - Gastro-esophageal reflux disease without esophagitis Category: Medical Plan: Dietary restrictions reinforced Continue Pantoprazole 40 mg QD (11) Vitamin D deficiency: Code(s): E55.9 - Vitamin D deficiency, unspecified Category: Medical Plan: Continue Vitamin D2 12728 units once a week (12) Vitamin B12 deficiency: Code(s): E53.8 - Deficiency of other specified B group vitamins Category: Medical Plan: Continue Vitamin B12 1000 mcg twice a week - she was instructed to cut back on her dosing from daily to BIW as her serum B12 level was very high on her previous labs (13) Insomnia: Comment: was on Trazodone 150 mg in the past but has not refilled Rx since 2016 Code(s): G47.00 - Insomnia, unspecified Category: Medical Qualifiers: Insomnia type: unspecified Qualified Code(s): G47.00 - Insomnia, unspecified Plan: Sleep hygiene reinforced Continue Trazodone 50 mg Q HS PRN Have advised patient that her frequent awakening from sleep at night is likely multifactorial, including her recently increased low back pain as well as her urinary frequency and that addressing these issues should eventually lead to less awakenings and better and more restful sleep at night (14) Anxiety: Code(s): F41.9 - Anxiety disorder, unspecified Category: Medical Plan: Continue Lorazepam 0.5 mg TID PRN, Hydroxyzine 25 mg TID PRN and Buspirone 10 mg BID Follow up with psychiatry as scheduled (15) Depression: Code(s): F32.9 - Major depressive disorder, single episode, unspecified Category: Medical Qualifiers: Depression Type: unspecified Qualified Code(s): F32.9 - Major depressive disorder, single episode, unspecified Plan: Continue Budeprion SR 100 mg 2 tablets BID Follow up with psychiatry as scheduled (16) Obesity (BMI 30-39.9): Code(s): E66.9 - Obesity, unspecified Category: Medical Plan: Reinforced diet; weight loss and exercise are unrealistic given patient's multiple physical issues and limited activity tolerance Plan Follow up as scheduled in April 2025 Orders: Orders US thyroid Today E04.1 - Nontoxic single thyroid nodule Referrals Endocrinology Referral E04.1 - Nontoxic single thyroid nodule Vascular Surgery Referral R60.0 - Localized edema
[2025-01-24 14:05] VITALS: BP 124/82; PULSE 68; O2SAT 97; BMI 35.7
--- OUTSIDE RECORDS SUMMARY | 2025-01-24 14:54 | XMS_ITS | Clinical Summary ---
Author Organization [facility] Address [address] [place] [address] Care Team Providers Care Parcel Post Weigher Name Role Phone Henrique Soler MD Primary Care Provider Unava ilable Allergies Active Allergy Reactions Severity Noted Date Comments Codeine Rash/Dermatitis 07/10/2015 Kdc:Propoxyphene+Celeste Blue Fcf Rash/Dermatitis 07/10/2015 Ibuprofen Rash/Dermatitis 07/10/2015 Uxkshrkgve-Uixulptdlk-Dpsgswxxin Rash/Dermatitis 07/10/2015 Apap-Fd&C Red #40 Al Hagen-Oxycodone [...] HEPATITIS C SCREENING Completed 07/18/2015 Care Teams Parcel Post Weigher Relationship Specialty Start Date End Date Henrique Soler MD PCP - General Internal Medicine 04/01/18
--- OUTSIDE RECORDS SUMMARY | 2025-01-24 14:54 | XMS_ITS | Clinical Summary ---
Author Organization [facility] Address [address] [place] [phone] Phone Care Team Providers Care Director Of People Name Role Phone Henrique Soler MD Primary [...] - 11/25/2024 3:42 PM EDT Hospital Encounter [facility] [address] [place] [phone] Christophe Hilton MD Neenan, Kevin P, DO Bukalo, Nermina, MD Bell, Alistair A, MD Fall, initial encounter (Primary Dx); Acute cystitis without hematuria; Dizziness Discharge Disposition: Home-Health Care [facility] 11/11/2024 12:50 PM EDT - 11/13/2024 5:06 PM EDT Hospital Encounter [facility] [address] [place] [phone] Man Cornelius, Tyshawn Edwards MD Santoyo-Pacheco, Omar D, MD Dizziness (Primary Dx) Discharge Disposition: Home-Health Care [facility] 11/09/2024 6:15 PM EDT - 11/10/2024 12:29 AM EDT Emergency [facility] Emergency [address] [place] [phone] Acute cystitis without hematuria (Primary Dx); Dizziness [...] Cancer Screening: Stool Based Tests (FOBT/FIT) 06/09/2022 Medicare Annual Wellness Visit 06/09/2022 Osteoporosis Screening (Bone Density Screening) 06/09/2022 Social Influencers of Health Screening 06/09/2022 COVID-19 Vaccine ( season) 2024 Depression Screening 07/07/2024 Influenza Vaccine (#1) 2025 2, 04/09/2021, 09/15/2020, [...] Complete blood count (11/25/2024 6:03 AM EDT) [facility] Signature WBC 5.7 4.8 - 10.8 K/[facility] LAB HEMETOLOGY METHOD 11/25/2024 7:10 AM EDT [facility] RBC 4.60 3.80 - 4.80 M/mcL LAB HEMETOLOGY METHOD 11/25/2024 7:10 AM [facility] Hemoglobin 13.2 11.5 - 16.0 g/dL LAB HEMETOLOGY METHOD 11/25/2024 7:10 AM [facility] Hematocrit 42.1 35.0 - 47.0 % LAB HEMETOLOGY METHOD 11/25/2024 7:10 AM [facility] MCV 91.1 79.0 - 98.0 FL LAB HEMETOLOGY METHOD 11/25/2024 7:10 AM [facility] MCH 28.6 27.0 - 32.0 pcg LAB HEMETOLOGY METHOD 11/25/2024 7:10 AM [facility] MCHC 31.4(L) 32.0 - 37.0 g/dL LAB HEMETOLOGY METHOD 11/25/2024 7:10 AM [facility] RDW 14.6 11.0 - 15.0 % LAB HEMETOLOGY METHOD 11/25/2024 7:10 AM [facility] Platelets 190 130 - 400 K/mcL LAB HEMETOLOGY METHOD 11/25/2024 7:10 AM [facility] MPV 12.2(H) 7.0 - 11.0 FL LAB HEMETOLOGY METHOD 11/25/2024 7:10 AM [facility] NRBC 0.0 <1.0 % LAB HEMETOLOGY METHOD 11/25/2024 7:10 AM [facility] NRBC Absolute 0.00 <0.10 K/mcL LAB HEMETOLOGY METHOD 11/25/2024 7:10 AM [facility] Blood Venous blood specimen / Unknown Venipuncture / Unknown 11/25/2024 6:03 AM EDT 11/25/2024 6:49 AM EDT us Cindy Perez MD LAB BLOOD ORDERABLES Final Res ult [facility] [address] [place] [address], [place] [phone] * (ABNORMAL) Basic metabolic panel (11/25/2024 6:03 AM EDT) Only the most recent of5 resultswithin the time period is included. Sodium 139 133 - 145 mmol/L LAB CHEMISTRY METHOD 11/25/2024 7:26 AM [facility] Potassium 4.2 3.5 - 5.5 mmol/L LAB CHEMISTRY METHOD 11/25/2024 7:26 AM [facility] Chloride 108 96 - 110 mmol/L LAB CHEMISTRY METHOD 11/25/2024 7:26 AM [facility] CO2 27 21 - 32 mmol/L LAB CHEMISTRY METHOD 11/25/2024 7:26 AM [facility] Anion Gap 4 3 - 11 LAB CHEMISTRY METHOD 11/25/2024 7:26 AM [facility] Glucose 172(H) 70 - 100 mg/dL LAB CHEMISTRY METHOD 11/25/2024 7:26 AM [facility] BUN 14 5 - 25 mg/dL LAB CHEMISTRY METHOD 11/25/2024 7:26 AM [facility] Creatinine 0.91 0.50 - 1.10 mg/dL LAB CHEMISTRY METHOD 11/25/2024 7:26 AM [facility] eGFR 69 >=60 mL/min/1. 73m2 LAB CHEMISTRY METHOD 11/25/2024 7:26 AM [facility] Comment:Calculation based on the Chronic Kidney Disease Epidemiology Collaboration (CKD-EPI) equation refit without adjustment for race. BUN/Creatinine Ratio 15.4 LAB CHEMISTRY METHOD 11/25/2024 7:26 AM [facility] Calcium 8.5 8.5 - 10.5 mg/dL LAB CHEMISTRY METHOD 11/25/2024 7:26 AM EDT [facility] Blood Venous blood specimen / Unknown Venipuncture / Unknown 11/25/2024 6:03 AM EDT 11/25/2024 6:49 AM EDT Cindy Perez MD LAB BLOOD ORDERABLES Final Res ult Performing Organization Address City/[facility]/ZIP Co de Phone Number [facility] [address] [place] [address], [place] [phone] * (ABNORMAL) Valproic acid level, total (11/24/2024 7:37 PM EDT) Only the most recent of2 resultswithin the time period is included. Pathologist [facility] Valproic Acid, Total <3(L) 50 - 100 mcg/mL LAB CHEMISTRY METHOD 11/24/2024 8:30 PM EDT [facility] Blood Venous blood specimen / Unknown Venipuncture / Unknown 11/24/2024 7:37 PM EDT 11/24/2024 8:01 PM EDT us Lilli GREENWOOD LAB BLOOD ORDERABLES Final Result Performing Organization Address [facility]/ZIP Co de Phone Number [facility] [address] [place] [address], [place] [phone] * (ABNORMAL) Urinalysis with reflex microscopic and culture (11/24/2024 6:03 PM EDT) Only the most recent of3 resultswithin the time period is included. Specific [place] Urine 1.021 1.003 - 1.030 LAB URINALYSIS - AUTOMATED METHOD 11/24/2024 6:33 PM EDT [facility] pH, Urine 5.5 5.0 - 8.0 pH LAB URINALYSIS - AUTOMATED METHOD 11/24/2024 6:33 PM [facility] Leukocytes, Urine Trace(A) Negative LAB URINALYSIS - AUTOMATED METHOD 11/24/2024 6:33 PM [facility] Nitrite, Urine Positive(A) Negative LAB URINALYSIS - AUTOMATED METHOD 11/24/2024 6:33 PM [facility] Protein, Urine Negative <=Trace mg/dL LAB URINALYSIS - AUTOMATED METHOD 11/24/2024 6:33 PM [facility] Glucose, Urine Negative Negative mg/dL LAB URINALYSIS - AUTOMATED METHOD 11/24/2024 6:33 PM [facility] Ketones, Urine Negative Negative mg/dL LAB URINALYSIS - AUTOMATED METHOD 11/24/2024 6:33 PM [facility] Urobilinogen , Urine 0.2 0.2 - 1.0 mg/dL LAB URINALYSIS - AUTOMATED METHOD 11/24/2024 6:33 PM [facility] Bilirubin, Urine Negative Negative LAB URINALYSIS - AUTOMATED METHOD 11/24/2024 6:33 PM [facility] Blood, Urine Trace(A) Negative LAB URINALYSIS - AUTOMATED METHOD 11/24/2024 6:33 PM [facility] RBC, Urine 2.6 0 - 4 /HPF LAB URINALYSIS - AUTOMATED METHOD 11/24/2024 6:33 PM [facility] WBC, Urine 7.6(H) 0 - 4 /HPF LAB URINALYSIS - AUTOMATED METHOD 11/24/2024 6:33 PM [facility] Squamous Epithelial, Urine 36 0 - 60 /LPF LAB URINALYSIS - AUTOMATED METHOD 11/24/2024 6:33 PM [facility] Bacteria, Urine Many(A) Negative /HPF LAB URINALYSIS - AUTOMATED METHOD 11/24/2024 6:33 PM [facility] Hyaline Casts, Urine 4.4(H) 0 - 3 /LPF LAB URINALYSIS - AUTOMATED METHOD 11/24/2024 6:33 PM EDT [facility] Urine Urinary bladder structure / Unknown Non-blood Collection / Unknown 11/24/2024 6:03 PM EDT 11/24/2024 6:16 PM EDT [facility] URINE ORDERABLES Final Result Performing Organization Address [facility] de Phone Number [facility] [address] [place] [address], [place] [phone] * Mercedes urine culture tube (11/24/2024 6:03 PM EDT) Only the most recent of4 resultswithin the time period is included. Extra Tube Hold for add-ons. 11/24/2024 8:01 PM EDT [facility] Comment:Auto resulted. Urine Urinary bladder structure / Unknown Non-blood Collection / Unknown 11/24/2024 6:03 PM EDT 11/24/2024 6:16 PM EDT Lilli Babcock [facility] URINE ORDERABLES Final Result Performing Organization Address [facility] de Phone Number [facility] [address] [place] [address], [place] [phone] * (ABNORMAL) Culture urine (11/24/2024 6:03 PM EDT) Only the most recent of3 resultswithin the time period is included. Culture, Urine 50,000-100,000 CFU/mL Escherichia coli(A) SCOTT 11/27/2024 9:48 AM EDT [facility] Comment: The organism value for [...] GENERAL ORDERABLES Final Result Performing Organization Address City/State/[facility] Co de Phone Number [facility] [address] [place] [address], * CT Head wo Contrast (11/24/2024 4:03 PM EDT) Anatomical Region Laterality Modality Head and Neck Computed Tomogra phy 11/24/2024 4:12 PM EDT Impressions 11/24/2024 4:17 PM EDT NO ACUTE INTRACRANIAL ABNORMALITY. -------- FINAL REPORT -------- Dictated By: Jake Chambers Dictated Date: 11/24/2024 16:12 ET Assigned Physician: Jake Chambers Reviewed and Electronically Signed By: Jake Chambers Signed Date: 11/24/2024 16:17 ET Workstation ID: [id number] Transcribed By: Self Edit Transcribed Date: 11/24/2024 [...] Signed Date: 11/24/2024 16:17 ET Workstation ID: [id number] Transcribed By: Self Edit Transcribed Date: 11/24/2024 [...] Signed Date: 11/24/2024 15:37 ET Workstation ID: [id number] Transcribed By: Self Edit Transcribed Date: 11/24/2024 15:30 ET Narrative 11/24/2024 3:37 PM EDT History: Pelvic fracture Technique: Volumetric imaging through the pelvis without IV contrast obtained in a [employer] light speed VCT scanner. Dose reduction techniques [...] the pelvis without IV contrastobtained in a St[employer]Save light speed VCT scanner. Dose reduction techniquesutilized [...] Signed Date: 11/24/2024 15:37 ET Workstation ID: [id number] Transcribed By: Self Edit Transcribed Date: 11/24/2024 [...] Signed Date: 11/24/2024 12:48 ET Workstation ID: [id number] Transcribed By: Self Edit Transcribed Date: 11/24/2024 [...] Signed Date: 11/24/2024 12:48 ET Workstation ID: [id number] Transcribed By: Self Edit Transcribed Date: 11/24/2024 12:47 ET us Christophe SMITH XR PROCEDURES Final Result * ECG 12 lead (11/24/2024 11:49 AM EDT) Only the most recent of3 resultswithin the time period is included. Pathologist [facility] Ventricular Rate ECG 76 BPM GEMUSE Atrial Rate 76 BPM GEMUSE P-R Interval 194 ms GEMUSE QRS Duration 82 ms GEMUSE Q-T Interval 398 ms GEMUSE QTc 447 ms GEMUSE P Wave Kingsley 44 degrees GEMUSE R Kingsley -9 degrees GEMUSE T Kingsley 28 degrees GEMUSE ECG Interpretation Normal sinus [...] of4 resultswithin the time period is included. [facility] WBC 5.0 4.8 - 10.8 K/mcL LAB HEMETOLOGY METHOD 11/24/2024 12:48 PM EDT [facility] RBC 4.90(H) 3.80 - 4.80 M/mcL LAB HEMETOLOGY METHOD 11/24/2024 12:48 PM EDT [facility] Hemoglobin 14.0 11.5 - 16.0 g/dL LAB HEMETOLOGY METHOD 11/24/2024 12:48 PM EDT [facility] Hematocrit 43.8 35.0 - 47.0 % LAB HEMETOLOGY METHOD 11/24/2024 12:48 PM EDT [facility] MCV 90.3 79.0 - 98.0 FL LAB HEMETOLOGY METHOD 11/24/2024 12:48 PM EDT [facility] MCH 28.9 27.0 - 32.0 pcg LAB HEMETOLOGY METHOD 11/24/2024 12:48 PM EDT [facility] MCHC 32.0 32.0 - 37.0 g/dL LAB HEMETOLOGY METHOD 11/24/2024 12:48 PM EDT [facility] RDW 14.5 11.0 - 15.0 % LAB HEMETOLOGY METHOD 11/24/2024 12:48 PM EDT [facility] Platelets 205 130 - 400 K/mcL LAB HEMETOLOGY METHOD 11/24/2024 12:48 PM EDT [facility] MPV 12.3(H) 7.0 - 11.0 FL LAB HEMETOLOGY METHOD 11/24/2024 12:48 PM EDT [facility] NRBC 0.0 <1.0 % LAB HEMETOLOGY METHOD 11/24/2024 12:48 PM EDT [facility] NRBC Absolute 0.00 <0.10 K/mcL LAB HEMETOLOGY METHOD 11/24/2024 12:48 PM EDT [facility] Neutrophils Relative 30.5 % LAB HEMETOLOGY METHOD 11/24/2024 12:48 PM EDT [facility] Lymphocytes Relative 55.5 % LAB HEMETOLOGY METHOD [facility]24 [facility] Monocytes Relative 10.6 % LAB HEMETOLOGY METHOD 11/24/2024 12:48 PM EDT [facility] Eosinophils Relative 2.6 % LAB HEMETOLOGY METHOD 11/24/2024 12:48 PM EDT [facility] Basophils Relative 0.6 % LAB HEMETOLOGY METHOD 11/24/2024 12:48 PM EDT [facility] Immature Granulocytes Relative 0.2 % LAB HEMETOLOGY METHOD 11/24/2024 12:48 PM EDT [facility] Neutrophils Absolute 1.52 1.50 - 7.00 K/mcL LAB HEMETOLOGY METHOD 11/24/2024 12:48 PM EDT [facility] Lymphocytes Absolute 2.77 1.00 - 5.00 K/mcL LAB HEMETOLOGY METHOD 11/24/2024 12:48 PM EDT [facility] Monocytes Absolute 0.53 0.20 - 1.00 K/mcL LAB HEMETOLOGY METHOD 11/24/2024 12:48 PM EDT [facility] Eosinophils Absolute 0.13 0.00 - 0.50 K/mcL LAB HEMETOLOGY METHOD 11/24/2024 12:48 PM EDT [facility] Basophils Absolute 0.03 0.00 - 0.20 K/mcL LAB HEMETOLOGY METHOD 11/24/2024 12:48 PM EDT [facility] Immature Granulocytes Absolute 0.01 0.00 - 0.03 K/mcL LAB HEMETOLOGY METHOD 11/24/2024 12:48 PM EDT [facility] Blood Venous blood specimen / Unknown Venipuncture / Unknown 11/24/2024 11:29 AM EDT 11/24/2024 12:31 PM EDT Christophe Hilton MD LAB BLOOD ORDERABLES Final Resu lt [facility] [address] [place] [address], * MR Brain wo Contrast (11/12/2024 4:40 [...] Signed Date: 11/12/2024 17:10 ET Workstation ID: [id number] Transcribed By: Self Edit Transcribed Date: 11/12/2024 [...] Signed Date: 11/12/2024 17:10 ET Workstation ID: [id number] Transcribed By: Self Edit Transcribed Date: 11/12/2024 16:57 ET us Jojo GREENWOOD IMG MRI PROCEDURES Final Resu lt * (ABNORMAL) Lipid panel with reflex to direct LDL (11/12/2024 6:15 AM EDT) Cholesterol 203(H) 0 - 200 mg/dL LAB CHEMISTRY METHOD 11/12/2024 8:03 AM EDT [facility] Triglycerides 80 0 - 150 mg/dL LAB CHEMISTRY METHOD 11/12/2024 8:03 AM EDT [facility] HDL 71 >=40 mg/dL LAB CHEMISTRY METHOD 11/12/2024 8:03 AM EDT [facility] LDL Calculated 116(H) 0 - 100 mg/dL LAB CHEMISTRY METHOD [facility]24 [facility] VLDL Cholesterol Randy 16 mg/dL LAB CHEMISTRY METHOD 11/12/2024 8:03 AM [facility] Non HDL Chol. (LDL+VLDL) 132 <145 mg/dL LAB CHEMISTRY METHOD 11/12/2024 8:03 AM EDT [facility] Chol/HDL Ratio 2.9 0.0 - 4.4 LAB CHEMISTRY METHOD 11/12/2024 8:03 AM [facility] Blood Venous blood specimen / Unknown Venipuncture / Unknown 11/12/2024 6:15 AM EDT 11/12/2024 6:58 AM EDT us Jojo GREENWOOD LAB BLOOD ORDERABLES Final Re sult [facility] [address] [place] [address], * Magnesium (11/12/2024 6:15 AM EDT) Only the most recent of3 resultswithin the time period is included. Magnesium 1.9 1.9 - 2.6 mg/dL LAB CHEMISTRY METHOD 11/12/2024 8:03 AM EDT [facility] Blood Venous blood specimen / Unknown Venipuncture / Unknown 11/12/2024 6:15 AM EDT 11/12/2024 6:58 AM EDT us Jojo GREENWOOD LAB BLOOD ORDERABLES Final Re sult [facility] [address] [place] [address], * CT Angio Head/Neck wo and/or w [...] Signed Date: 11/11/2024 16:54 ET Workstation ID: [id number] Transcribed By: Self Edit Transcribed Date: 11/11/2024 [...] Omnipaque 370 injected. Scan was analyzed using [employer] AI based computer aided triage software. [...] left ELENA. Vertebrobasilar system is patent. Proximal completions engineer are patent. Major dural venous sinuses opacify normally with contrast. Extracranial structures are unremarkable. Degenerative changes in the bones. Procedure Note Jake Chambers MD - 11/11/2024 PROCEDURE: CTA HEAD AND NECK INDICATION: Neuro deficit, acute, stroke suspected TECHNIQUE: CTA of the head and neck with intravenous contrast. Multiplanarreformats. The examination was performed utilizing dose reductiontechniques.3-D or MIP images were produced with postprocessing on anindepOpenSesame computer workstation. 90cc Omnipaque 370 injected. Scan wasanalyzed using [employer] AI based computer aided triage software. [...] left ELENA. Vertebrobasilar system is patent. Proximal completions engineer are patent. Major dural venous sinuses opacify normally with contrast. Extracranial structures are unremarkable. Degenerative changes in thebones. IMPRESSION: NO ACUTE ABNORMALITY. -------- FINAL REPORT -------- Dictated By: Jake Chambers Dictated Date: 11/11/2024 16:51 ET Assigned Physician: Jake Chambers Reviewed and Electronically Signed By: Jake Chambers Signed Date: 11/11/2024 16:54 ET Workstation ID: [id number] Transcribed By: Self Edit Transcribed Date: 11/11/2024 16:51 ET us Man Cornelius DO IMG CT PROCEDURES Final Result * (ABNORMAL) Urinalysis with reflex microscopic (11/11/2024 3:03 PM EDT) Specific [place] Urine 1.019 1.003 - 1.030 LAB URINALYSIS - AUTOMATED METHOD 11/11/2024 3:44 PM [facility] pH, Urine 6.0 5.0 - 8.0 pH LAB URINALYSIS - AUTOMATED METHOD 11/11/2024 3:44 PM [facility] Leukocytes, Urine Trace(A) Negative LAB URINALYSIS - AUTOMATED METHOD 11/11/2024 3:44 PM [facility] Nitrite, Urine Negative Negative LAB URINALYSIS - AUTOMATED METHOD 11/11/2024 3:44 PM [facility] Protein, Urine Negative <=Trace mg/dL LAB URINALYSIS - AUTOMATED METHOD 11/11/2024 3:44 PM [facility] Glucose, Urine Negative Negative mg/dL LAB URINALYSIS - AUTOMATED METHOD 11/11/2024 3:44 PM [facility] Ketones, Urine Trace(A) Negative mg/dL LAB URINALYSIS - AUTOMATED METHOD 11/11/2024 3:44 PM [facility] Urobilinogen, Urine 0.2 0.2 - 1.0 mg/dL LAB URINALYSIS - AUTOMATED METHOD 11/11/2024 3:44 PM [facility] Bilirubin, Urine Negative Negative LAB URINALYSIS - AUTOMATED METHOD 11/11/2024 3:44 PM [facility] Blood, Urine Negative Negative LAB URINALYSIS - AUTOMATED METHOD 11/11/2024 3:44 PM [facility] RBC, Urine 3.1 0 - 4 /HPF LAB URINALYSIS - AUTOMATED METHOD 11/11/2024 3:44 PM [facility] WBC, Urine 1.6 0 - 4 /HPF LAB URINALYSIS - AUTOMATED METHOD 11/11/2024 3:44 PM EDT [facility] Squamous Epithelial, Urine 26 0 - 60 /LPF LAB URINALYSIS - AUTOMATED METHOD 11/11/2024 3:44 PM EDT [facility] Bacteria, Urine Negative Negative /HPF LAB URINALYSIS - AUTOMATED METHOD 11/11/2024 3:44 PM EDT [facility] Hyaline Casts, Urine 0.8 0 - 3 /LPF LAB URINALYSIS - AUTOMATED METHOD 11/11/2024 3:44 PM EDT [facility] Urine Urine specimen obtained by clean catch procedure / Unknown Non-blood Collection / Unknown 11/11/2024 3:03 PM EDT 11/11/2024 3:26 PM EDT Man Cornelius DO LAB URINE ORDERABLES Final Res ult [facility] [address] [place] [address], [place] [phone] * POCT Glucose, blood (11/11/2024 1:02 PM EDT) Only the most recent of2 resultswithin the time period is included. Pathologist [facility] Glucose POCT 96 70 - 100 mg/dL 11/11/2024 1:03 PM EDT [facility] Blood Capillary blood specimen / Unknown 11/11/2024 1:02 PM EDT 11/11/2024 1:04 PM EDT us Generic Provider Poct LAB POINT OF CARE TEST DOCKED DEVICE UNSOLICITED RESULTS Final Result Performing Organization Address City/[facility]/ZIP Co de Phone Number [facility] [address] [place] [address], [place] [phone] * (ABNORMAL) Hemoglobin A1c (11/11/2024 12:10 PM EDT) [facility] Hemoglobin A1C 6.7(H) <6.5 % LAB CHEMISTRY METHOD 11/11/2024 10:18 PM EDT [facility] Mean Bld Glu Estim. 146 mg/dL LAB CHEMISTRY METHOD 11/11/2024 10:18 PM EDT [facility] Blood Venous blood specimen / Unknown Venipuncture / Unknown 11/11/2024 12:10 PM EDT 11/11/2024 12:17 PM EDT Jojo GREENWOOD LAB BLOOD ORDERABLES Final Re sult Performing Organization Address City/[facility]/ZIP Co de Phone Number [facility] [address] [place] [address], * Troponin I high sensitivity (11/09/2024 8:26 PM EDT) Only the most recent of2 resultswithin the time period is included. [facility] High Sensitivity Troponin I 6 <=54 ng/L LAB CHEMISTRY METHOD 11/09/2024 9:10 PM EDT [facility] Blood Venous blood specimen / Unknown Venipuncture / Unknown 11/09/2024 8:26 PM EDT 11/09/2024 8:33 PM EDT Narrative [facility] - 11/09/2024 9:10 PM EDT High levels of biotin in samples may falsely decrease hsTroponin values. Use caution when interpreting hsTroponin results in patients taking biotin who exhibit renal impairment (eGFR <60) or in patients taking more than 20 mg/day of biotin. Mook Irizarry MD LAB BLOOD ORDERABLES Final Result Performing Organization Address [facility]/ZIP Co de Phone Number [facility] [address] [place] [address], * SCR MAMMO BI INCL CAD (09/02/2017 [...] Most Recently Relevant to Health Maintenance Insurance [facility] [employer] Member Subscriber Plan / Payer (Ef fective 2022-Present) Name:SABRINA MCQUEEN Relation to Subscriber:Self Name:Sabrina Mcqueen Payer ID:[id number] Group ID:[id number] Type:Not on file Address: [place] [address] [address] [id number] Advance Directives Documents on File Type Date Recorded 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 Care Teams Director Of People Relationship Specialty Start Date End Date Henrique Soler MD [address] [place] [address] [address] [place] PCP - General Internal Medicine 06/18/14
--- OUTSIDE RECORDS SUMMARY | 2025-01-24 14:54 | XMS_ITS | Data Portability ---
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 I have reviewed and agree with the Assessment and Plan as documented by the Heliotherapist. Patient given the opportunity to ask questions. Our service contacted for an assessment of: Urinary symptoms As per above, patient with approximately 24 hours of dysuria, frequency. No history of frequent urinary tract infections. Denies fever, chills, abdominal pain, back pain, flank pain. Per pump tender on the scene, Vital signs are [...] Assessment and Plan as documented by the Heliotherapist. Patient given the opportunity to ask questions. [...] she was out of the medication. Per pump tender on the scene, Vital signs are stable patient is afebrile. Patient is nontoxic and a good historian of events. Per pump tender on the scene she has a nonfocal [...] . Lab urinalys is, dipstick 2023 024 Critical access hospital, [address] [place] [address], [phone] 4 09:18:24 culture, urine 2023 024 [email or web address] [facility] (Centralized Electronic Ordering - All Locations), Patient Can Go To The Location Of Their Choice, [id number] 4 09:55:32 urinalys is, dipstick 2023 024 Critical access hospital, [address] [place] [address], [id number] 09:18:51 Referral None recorded . Procedures None recorded . Surgeries None recorded . Imaging None recorded . Medication Orders meclizin e 25 mg tablet 2024 025 [email or web address] [facility] #[id number], [address] [place], [address], 5 18:19:50 meclizin e 25 mg tablet 2024 025 [id number], [address], [place], [id number], 5 18:19:56 meclizin e 25 mg tablet 2024 025 [email or web address] [facility]/Pharmacy #[id number], [address] [place], [address], 5 18:23:15 levoflox acin 500 mg tablet 2023 024 [facility], [address] [place], [address], 4 21:23:53 lactated Ringers intraven ous solution 2022 023 [email or web address], [address] [place], [address], 3 12:22:06 Patient TargetsNo targets recorded. Patient InstructionsNo instructions recorded. Reason for Referral None Reported. Results Created Date Observation Date Name Description Value Unit Range Abnormal Flag Note LastModifiedBy Organization Detail LastModifiedTime 02/24/2002/23/2023 BMP, serum or plasm a BUN 19 Not Available [facility] [address], [address] 02/23/2023 19:45:16 02/24/20 23 02/23/2023 BMP, serum or plasm a CI- 99 Not Available [facility] [address], [address] 02/23/2023 19:45:16 02/24/20 23 02/23/2023 BMP, serum or plasm a CRE 0.7 Not Available [facility] [address], [address] [place] [address] 02/23/2023 19:45:16 02/24/20 23 02/23/2023 BMP, serum or plasm a GLU 162 Not Available [facility] [address], [address] [place] [address] 02/23/2023 19:45:16 02/24/20 23 02/23/2023 BMP, serum or plasm a K+ 4.2 Not Available [facility] [address], [address] [place] [address] 02/23/2023 19:45:16 02/24/20 23 02/23/2023 BMP, serum or plasm a Na+ 139 Not Available [facility] [address], [address] [place] [address] 02/23/2023 19:45:16 02/24/20 23 02/23/2023 BMP, serum or plasm a tCO2 20 Not Available [facility] [address], [address] [place] [address] 02/23/2023 19:45:16 03/01/20 23 03/01/2023 BMP, serum or plasm a BUN 23 Not Available [facility] [address], [address] [place] [address] 03/01/2023 13:31:01 03/01/20 23 03/01/2023 BMP, serum or plasm a CRE 0.7 Not Available [facility] [address], [address] [place] [address] 03/01/2023 13:31:01 03/01/20 23 03/01/2023 BMP, serum or plasm a GLU 131 Not Available [facility] [address], [address] 03/01/2023 13:31:01 03/01/20 23 03/01/2023 BMP, serum or plasm a K+ 4.6 Not Available [facility] [address], [address] [place] [address] 03/01/2023 13:31:01 03/01/20 23 03/01/2023 BMP, serum or plasm a Na+ 140 Not Available [facility] [address], [address] [place] [address] 03/01/2023 13:31:01 03/01/20 23 03/01/2023 BMP, serum or plasm a tCO2 28 Not Available [facility] [address], [place], [address] 03/01/2023 13:31:01 Result Notes None recorded. Medical [...] Address Organization Details Last Updated DateTime 4 09724.6 g 152.4 cm 98.4 [degF] 96 % 96 % 14 /min 80 /min 124/80 mm[Hg] Not Available [employer] 4 21:21:02 Date Recorded Respiratory rate Body temperature Heart rate Oxygen saturation Oxygen saturation in Arterial blood by Pulse oximetry Systolic And Diastolic Provider Name and Address Organization Details Last Updated DateTime 5 18 /min 97.7 [degF] 71 /min 97 % 97 % 129/75 mm[Hg] Not Available [employer] 5 18:20:58 Date Recorded Oxygen saturation Oxygen saturation in Arterial blood by Pulse oximetry Respiratory rate Heart rate Body temperature Systolic And Diastolic Provider Name and Address Organization Details Last Updated DateTime 5 95 % 95 % 16 /min 83 /min 98 [degF] 138/98 mm[Hg] Not Available [employer] 5 18:17:10 Date Recorded Body temperature Respiratory rate Heart rate Oxygen saturation Oxygen saturation in Arterial blood by Pulse oximetry Systolic And Diastolic Provider Name and Address Organization Details Last Updated DateTime 3 97.9 [degF] 16 /min 99 /min 97 % 97 % 128/78 mm[Hg] Not Available [employer] 3 11:48:04 Date Recorded Body temperature Heart [...] SNOMED-CT Code Diagnosis ICD10 Code Diagnosis Note [id number] Kesha Beck MD Main - [address] [phone] 02/21/2023 15:44:06 02/22/2023 15:35:21 Dehydration [id number] E86.0 [id number] Sajan Rueda MD [facility] - [address] [phone] 02/23/2023 18:33:42 02/24/2023 07:20:36 Dizziness [id number] R42 As noted, we were called to see this patient regarding concerns of dizziness/ unsteadine ss. Evaluation in the field was performed by my pump tender colleague, as noted above, I provided [...] uncertain etiology, ddx includes hypovolemi a, meds, WINDOWS TECHNICAL SPECIALIST or PNS process, including focal lesions, neuropathy [...] particular ly falling, confusion, face/arm/l eg weakness. [id number] Madelyn Robertson MD Main - [address] [address] 03/01/2023 13:28:34 03/04/2023 11:06:40 Acute gastroenteritis 09786754 K52.9 Evaluation in the field was performed by my pump tender colleague, as noted above, I provided [...] shortness of breath, cough, chest pain, fever. [id number] Carmen Pemberton MD Main - [address] [phone] 03/02/2023 11:45:43 03/04/2023 11:11:38 Acute gastroenteritis [id number] K52.9 67 yo w/ gastroente ritis, seen [...] on Friday morning. Questions answered; pt and pump tender agreeable with plan [id number] Jose Hawk MD Main - [facility] [address] [place] [phone] 04/06/2023 15:42:46 04/07/2023 08:17:20 Syncope and collapse [id number] R55 This 67-year-ol d female has had two episodes of syncope without warning in the past 24 hours. She did hit her head and now complains of head and neck pain. I recommende d that she go to the ER for further evaluation and treatment. The patient resisted this recommenda tion, so I instructed the pump tender to try and change her mind. [id number] Alie Dillard MD Main - [facility] [address] [place] [phone] 10/22/2023 21:20:49 10/23/2023 11:15:53 Urinary symptoms [id number] R39.9 [id number] Alie Dillard MD Main - [facility] [address] [place] [phone] 11/16/2024 18:20:56 11/16/2024 21:08:15 Dizziness [id number] R42 [id number] Madelyn Robertson MD Main - [facility] [address] [place] [phone] 11/20/2024 18:17:08 11/21/2024 18:14:07 Vertigo [id number] R42 Evaluation in the field was performed by my pump tender colleague, as noted above, I provided [...] Maradiaga Member ID Guarantor Name 11/16/2024 1 [facility] - DOS ON OR AFTER 2022 - DUAL ELIGIBLE - HALF-WAY OPTIONS AND ONE CARE (MEDICARE REPLACEMENT/ADV ANTAGE - HMO) Sabrina Mcqueen [id number] Sabrina Mcqueen Notes Date Note Type Note [...] POC bloodwork drawn, unremarkable. Sent [place] to [facility] contacted [facility] ordered 1L of NS and 4MG of zofran IVP. [facility] sent prescription for Zofran to pt's pharmacy. Pt educated on s/s warranting a 911 call/trip to the hospital. Pt advised to F/U with PCP or [facility] if symptoms persist or worsen. Shreyas TORRES ...................... ...................... ...................... ...................... ...................... ...................... ......... Heliotherapist Note From Man Bolton: Dispatched to the [...] airway open and patent. Breathing non laborer rags. Able to speak in full sentences, -JVD, -HEENT, pupils PERRL, and soft non tender/distended, skin PWD with good turgid, lung sounds clear an equal bilaterally. [facility] consulted. IV established. BMP conducted, 1L LR given. Red flags discussed. All times are approx. ...................... ...................... ...................... ...................... ...................... ...................... ......... Disposition: Nissa Pemberton MD [address] [place] [address],[address], [place], [address], [employer] 03/03/2023 12:22:18 04/06/2023 text/html CRC Nursing Assessment: Chief Complaints: Syncope/Dizziness/Ligh theadedness, Falls PMH: COPD/Asthma Allergies: Unknown Comments: + dizziness since yesterday. Fall x2 yesterday and today. Unsteady gait due to dizziness. Unknown LOC. Possible head strike. c/o left wrist pain. Advised ED for further evaluation. Member declined ED after education but will accept [facility] visit first. Red flags reviewed. Instructed to call 911 for worsening symptoms. Jose Hawk MD [address] [place] [address],[address] [facility], [place], [phone], [employer] 04/06/2023 15:45:49 10/22/2023 text/html CRC Nurse Triage Notes (Morenita Dawson): Chief Complaints: Pain PMH: COPD/Asthma Allergies: Unknown Comments: Ukrainian speaking member. 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 Verified name//address. Member reports left flank pain that is getting worse. Reports multiple falls. Last fall on Friday. Member states she was evaluated s/p falls. Denies fevers. Denies urinary symptoms. Denies chest pain or shortness of breath. Advised member to call 911 with worsening signs/symptoms. ...................... ...................... ...................... ...................... ...................... ...................... ......... Heliotherapist Note From Costa Nielsen: Patient conscious alert [...] sample culture to [facility] UA values to [facility]. [facility] orders levafloxacin 500 mg PO and will prescribe more to patients local pharmacy. Red flags and patient education discussed. Consent, signed and uploaded times two ...................... ...................... ...................... ...................... ...................... ...................... ......... Disposition: Fulfilled Alie Dillard MD [address] [place] [address],[address], [place], [address], [facility] 10/22/2023 21:25:11 11/16/2024 text/html CRC Nurse Triage [...] 68 y.o female complains of Dizziness, Weakness Ukrainian speaking patient reporting dizziness when turning head, [...] ...................... ...................... ...................... ...................... ...................... ...................... ......... Heliotherapist Note From oBnnie Morales: Sent to a call for a [...] and treated for UTI and Vertigo at [facility]. Pt is still taking Keflex as prescribed. [...] unremarkable; Extremities: unremarkable; Skin: pink, warm, dry; [facility] consulted and orders Meclizine 25mg PO. Meclizine 25mg PO administered. Pt advised to follow up with PCP again tomorrow. Red flags discussed. Pt has no further questions. [facility] Medication Orders: meclizine 25 mg tablet: Administered ...................... ...................... ...................... ...................... ...................... ...................... ......... [facility] Consulted: Alie Dillard ...................... ...................... ...................... ...................... ...................... ...................... ......... Disposition: Fulfilled Alie Dillard MD [address] [facility],[address], [place], [address], [place] TADEO SAMUEL 11/16/2024 19:43:20 11/20/2024 text/html [...] ...................... ...................... ...................... ...................... ...................... ...................... ......... Heliotherapist Note From Chai Nunez: Encountered patient, supine in bed and conscious. Patient reports she has a history of vertigo for which she is treated with meclizine, was admitted from 11/11/24-11/13/24 at [facility] for said vertigo. Patient reports she [...] Extremity is free of trauma and edema. [facility] contacted: recommends patient be transported to the emergency room since she lives by herself and is suffering falls due to her dizziness, despite taking meclizine as prescribed. [facility] additionally states if patient is refusing transport [...] ...................... ...................... ...................... ...................... ...................... ...................... ......... [facility] Consulted: Madelyn Robertson ...................... ...................... ...................... ...................... ...................... ...................... ......... Disposition: Fulfilled Madelyn Robertson MD [address] [place] [address],[address], [place], [address], [facility] 11/20/2024 21:14:56 OBGyn Episode No OBEpisode recorded.
== END 2025-01-24 15:23 | disposition home or self-care (01) ==
LOC: HO.HMCH 14:04
PROVIDERS: PCP Internal Medicine; Visit Provider Internal Medicine
DX: E04.1 Nontoxic single thyroid nodule (principal); R60.0 Localized edema; E66.9 Obesity, unspecified; Z68.35 Body mass index [BMI] 35.0-35.9, adult; M47.816 Spondylosis without myelopathy or radiculopathy, lumbar region; J45.30 Mild persistent asthma, uncomplicated; G43.909 Migraine, unspecified, not intractable, without status migrainosus; M79.7 Fibromyalgia; M75.102 Unspecified rotator cuff tear or rupture of left shoulder, not specified as traumatic; M12.812 Other specific arthropathies, not elsewhere classified, left shoulder; M17.0 Bilateral primary osteoarthritis of knee; J30.9 Allergic rhinitis, unspecified

== ENCOUNTER → 2025-01-24 14:03 | Outpatient (BNVA) | payer OTHER, SELFPAY | PROVIDERS: PCP Internal Medicine; Visit Provider Internal Medicine | DX: M17.0 Bilateral primary osteoarthritis of knee (principal); R26.81 Unsteadiness on feet; M54.50 Low back pain, unspecified; R60.0 Localized edema; E04.1 Nontoxic single thyroid nodule; M47.816 Spondylosis without myelopathy or radiculopathy, lumbar region; J45.30 Mild persistent asthma, uncomplicated; G43.909 Migraine, unspecified, not intractable, without status migrainosus; M79.7 Fibromyalgia; M75.102 Unspecified rotator cuff tear or rupture of left shoulder, not specified as traumatic; M12.812 Other specific arthropathies, not elsewhere classified, left shoulder; J30.9 Allergic rhinitis, unspecified; K21.9 Gastro-esophageal reflux disease without esophagitis; E55.9 Vitamin D deficiency, unspecified; E53.8 Deficiency of other specified B group vitamins; G47.00 Insomnia, unspecified; F41.9 Anxiety disorder, unspecified; F32.9 Major depressive disorder, single episode, unspecified; E66.9 Obesity, unspecified; Z91.81 History of falling; Z68.35 Body mass index [BMI] 35.0-35.9, adult | CPT/HCPCS: 96127; 99212 ==

== ENCOUNTER 2025-03-02 14:31 | Outpatient (REF) | payer OTHER, SELFPAY ==
--- NOTE | ~2025-03-02 | US_ITS ---
EXAMINATION: US THYROID CLINICAL INFORMATION: Nontoxic single thyroid nodule. COMPARISON: February 18, 2020. TECHNIQUE: Linear transducer grayscale and color Doppler examination with attention to the region of the thyroid. FINDINGS: SIZE: Measurements of the thyroid lobes and nodules are given in sagittal, anteroposterior and transverse dimensions respectively. Right Thyroid Lobe: 4.4 x 1.7 x 1.6 cm, volume 6 mL. Previous: 3.9 x 1.5 x 1.5 cm, volume: 4.6 cc. Parenchyma: The gland echotexture is heterogeneous. Thyroid vascularity is normal. Left Thyroid Lobe: 4.5 x 1.9 x 1.6 cm, volume 7.1 mL. Previous: 3.9 x 2.1 x 2.3 cm, volume: 9.9 disease. Parenchyma: The gland echotexture is heterogeneous. Thyroid vascularity is normal.. Isthmus: 0.4 cm in maximum AP dimension. Previous: 0.4 cm. Estimated total number of nodules greater than or equal to 1 cm: 1. Biometric Technician nodules are described as follows: 1. Location: Upper pole left thyroid lobe.. Size: 2.0 x 1.7 x 1.7 cm, volume 2.98 mL. Previous: 2.4 x 1.7 x 2.2 cm, volume: 4.69 cc. Nodule characteristics: Composition: Solid (2). Echogenicity: Isoechoic (1). Shape: Not taller than wide (0). Margins: Smooth (0). Echogenic Foci: None (0). ACR TI-RADS total points: 3 ACR TI-RADS category: 3 NODES: No lymphadenopathy is seen in the tissue surrounding the thyroid gland. US/US thyroid IMPRESSION: ACR TI-RADS 3 ACR TI-RADS RECOMMENDATION REFERENCE: Ultrasound-guided fine-needle aspiration, followup ultrasound, no further follow up. * TR1 (0 point) and TR2 (2 points): No FNA or follow up. * TR3 (3 points): FNA if more than or equal to 2.5 cm in maximum dimension, followup ultrasound in 1, 3 and 5 years if 1.5 to 2.4 cm in maximum dimension. * TR4 (4-6 points): FNA if more than or equal to 1.5 cm in maximum dimension, followup ultrasound in 1, 2, 3 and 5 years if 1 to 1.4 cm in maximum dimension. * TR5 (more than or equal to 7 points): FNA if more than or equal to 1 cm in maximum dimension, followup ultrasound every year for 5 years if 0.5 to 0.9 cm in maximum dimension. * TR3, TR4 or TR5 nodules that are below the size threshold for followup receive no follow up. Electronically signed by: Zhou Gibbs MD 03/02/2025 03:18 PM EDT
--- OUTSIDE RECORDS SUMMARY | 2025-03-02 15:30 | XMS_ITS | Clinical Summary ---
Author Organization [facility] Address [address] [place] [phone] Phone Care Team Providers Care Pediatric Nephrologist Name Role Phone Henrique Soler MD Primary [...] Depression Screening 07/07/2024 Influenza Vaccine (#1) 2025 , 04/09/2021, 09/15/2020, Additional history exists Pneumococcal Vaccine: [...] Procedure Name Priority Date/Time Associated Diagnosis Comments LIPID PANEL WITH REFLEX TO DIRECT LDL Routine 11/12/2024 6:15 AM EDT SCR MAMMO BI INCL CAD Routine 09/02/2017 2:11 PM EST Encounter for screening mammogram for malignant neoplasm of breast HEPATITIS C SCREENING Routine 07/18/2015 from Last 3 Months or Most Recently Relevant to Health Maintenance Results * (ABNORMAL) Lipid panel with reflex to direct LDL (11/12/2024 6:15 AM EDT) Cholesterol 203(H) 0 - 200 mg/dL LAB CHEMISTRY METHOD 11/12/2024 8:03 AM [facility] Triglycerides 80 0 - 150 mg/dL LAB CHEMISTRY METHOD 11/12/2024 8:03 AM [facility] HDL 71 >=40 mg/dL LAB CHEMISTRY METHOD 11/12/2024 8:03 AM [facility] LDL Calculated 116(H) 0 - 100 mg/dL LAB CHEMISTRY METHOD 11/12/2024 8:03 AM [facility] VLDL Cholesterol Randy 16 mg/dL LAB CHEMISTRY METHOD 11/12/2024 8:03 AM [facility] Non HDL Chol. (LDL+VLDL) 132 <145 mg/dL LAB CHEMISTRY METHOD 11/12/2024 8:03 AM [facility] Chol/HDL Ratio 2.9 0.0 - 4.4 LAB CHEMISTRY METHOD 11/12/2024 8:03 AM [facility] Blood Venous blood specimen / Unknown Venipuncture / Unknown 11/12/2024 6:15 AM EDT 11/12/2024 6:58 AM EDT us Jojo [facility] LAB BLOOD ORDERABLES Final Re sult [facility] [address] [place] [address], * SCR MAMMO BI INCL CAD (09/02/2017 [...] C Screening (07/18/2015) Hepatitis C Screening Abstracted us Historical Provider HEALTH MAINTENANCE Final Result from Last 3 Months or Most Recently Relevant to Health Maintenance [place] [address] [place] [address] MEDICARE Member Subscriber Plan / Payer (Ef fective 2022-Present) Name:JANNETTE MCQUEENA Relation to Subscriber:Self Name:Richar Sabrina Payer ID:[id number] Group ID:[id number] Type:Not on file Address: [place] [address] [place] [address] Advance Directives Documents on File Type Date Recorded Patient Acquisition Marketing Coordinator Expl anation Health Care Decision (hx) 04/01/2016 [...] currently active code status orders. Care Teams Pediatric Nephrologist Relationship Specialty Start Date End Date Henrique Soler MD [address] [place] [address] [address] [place] PCP - General Internal Medicine 06/18/14
== END 2025-03-02 14:32 | disposition home or self-care (01) ==
LOC: HO.US 14:31
PROVIDERS: PCP Internal Medicine; Visit Provider Internal Medicine
DX: E04.1 Nontoxic single thyroid nodule (principal)
CPT/HCPCS: 76536

== ENCOUNTER → 2025-03-02 14:33 | Outpatient (BNV) | payer OTHER, SELFPAY | PROVIDERS: PCP Internal Medicine; Visit Provider Radiology Diagnostic Radiology | DX: E04.1 Nontoxic single thyroid nodule (principal) | CPT/HCPCS: 76536 ==

== ENCOUNTER 2025-03-08 13:11 | Outpatient (AMB) | payer OTHER, SELFPAY ==
[2025-03-08 13:40] VITALS: BMI 35.7
--- NOTE | 2025-03-08 13:40 | A.OFFVIS_ITS ---
Vital Signs 03/08/25 13:40 Height 5 ft 6 in Weight 221 lb BMI 35.7 Intake Visit Reasons: [employer] HAND/PCP referral for localized edema Intake Note: [employer] HAND/ bilateral LE swelling for many months. NO injury or surgery. Pt states she has heel pain. Pt states swelling is worse throughout the day. 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 Accompanied by: Family/Other Allergies codeine (Tylenol-Codeine #3) Allergy (Intermediate, Verified 03/08/25 13:45) Rash morphine Allergy (Intermediate, Verified 03/08/25 13:45) rash and itching nalbuphine (From Nubain) Allergy (Intermediate, Verified 03/08/25 13:45) Rash oxycodone (Percocet) Allergy (Intermediate, Verified 03/08/25 13:45) Rash propoxyphene (From Darvocet-N 100) Allergy (Intermediate, Verified 03/08/25 13:45) Rash tramadol (Ultram) Allergy (Intermediate, Verified 03/08/25 13:45) Rash ibuprofen (From Motrin) Allergy (Mild, Verified 03/08/25 13:45) RASH montelukast (Singulair) Allergy (Unknown, Verified 03/08/25 13:45) Unknown HPI HPI [employer] HAND/PCP referral for localized edema: Details: Pleasant 69-year-old female patient presents for painful varicose veins. Complaints include pain over varicosities, swelling of lower extremities, cramping, fatigue, and heaviness of the lower extremities. It has been affecting there daily activities including walking. It is noted more so in right leg. Patient denies any previous venous surgery or injections. Patient denies any history of DVT/ PE. Patient denies any history of phlebitis. Trial of compression includes - bdle-nin-secrrii They now present for vascular evaluation regarding their varicose veins. [facility] Medical History Folliculitis Pure hypercholesterolemia Allergic rhinitis Insomnia Multiple joint pain GERD without esophagitis Vitamin D deficiency Lumbar spondylosis Obesity (BMI 30-39.9) Migraine Primary osteoarthritis of both knees Urinary incontinence Rotator cuff tear, left Depression Asthma Fibromyalgia Non-toxic multinodular goiter Anxiety Surgical History Status post rotator cuff surgery S/P rotator cuff repair Status post right rotator cuff repair (~07/26/18) History of hysterectomy History of cholecystectomy History of laminectomy (~2009) Family History Father Diabetes Mother Medical history unknown Social History Household Members: None Housing: Apartment Do you presently have visiting nurse or other home services: No Alcohol intake: former Patient Tobacco Use Status: Never used Tobacco e-Cigarette/Vaping Use: Never Used Second Hand Smoke Exposure: No service: No Current occupational status: disabled Cognitive needs: Yes (cane) Hearing needs: No Vision needs: Yes (glasses) Review of Systems Const Reports as per HPI ENT Reports no additional complaints Card Denies chest pain, Denies chest pain at rest and Denies chest pain with activity Resp Denies chest congestion and Denies cough GI Reports no additional complaints Musc Details: pain over varicosities, aching of lower extremities, swelling, cramping, heaviness and tiredness, itching Denies abnormal gait Skin/Breast Reports pruritus and Denies wounds Neuro Reports no additional complaints and Denies abnormal gait Psych Denies no additional complaints Physical Exam Vital Signs: BMI result Body Mass Index 35.7 Const General: cooperative, healthy appearing and comfortable Orientation/consciousness: oriented to person, oriented to place and oriented to time Neck Carotids: no bruits Chest Chest palpation & inspection: normal inspection of the chest and normal palpation of entire chest wall Resp Effort & Inspection: normal respiratory effort and able to speak in complete sentences Cardio Rate: regular rate Heart sounds: S1 normal heart sound present and S2 normal heart sound present Peripheral pulses: Peripheral pulses 2+ throughout GI Inspection: Yes normal to inspection Skin Other: +2 edema, large rope-like varicosities greater than 4 mm CEAP Classification C4 - skin color changes Ep - Etiology Primary As - superficial veins P - reflux General skin exam: dry skin Neuro General: oriented to person, oriented to place and oriented to time Extrem Right lower extremity: full ROM, normal capillary refill and edema Left lower extremity: full ROM, normal capillary refill and edema Psych Mental Status: mental status grossly normal Assessment & Plan Assessment & Plan (1) Varicose veins of right lower extremity with inflammation: Code(s): I83.11 - Varicose veins of right lower extremity with inflammation Category: Medical Plan: In short, the patient has evidence of venous insufficiency. I have discussed the pathophysiology with the patient. In addition I have provided informational material regarding venous disease to the patient. We have discussed conservative measures including compression, elevation, and exercise. I have also provided a handout regarding appropriate use of compression stockings and where to purchase good compression stockings as well. I have taken the liberty of ordering venous insufficiency testing with the patient. They will follow up with me after testing. The patient had an opportunity to ask questions regarding the treatment plan. All questions were answered. Imaging studies, laboratory studies and physical exam results were discussed and reviewed in detail. No major barriers to understanding were identified. The patient expressed understanding and agreement with the above treatment plan. The patient is aware they should contact our office by phone for worsening of the current condition or the appearance of new symptoms. Thank you for allowing me to participate in the vascular care of this patient. If you have any questions or concerns regarding the treatment for the above condition please do not hesitate to contact me. The office telephone contact is [phone]. This note is constructed using voice recognition software. While every effort has been made to ensure accuracy, dining car conductor errors may have been included. Thank you for allowing me to participate in the care of your patient. Yours sincerely, Ridge Hall MD, FACS, R.P.V.I. Orders: Orders US venous duplex LE BI Today I83.11 - Varicose veins of right lower extremity with inflammation Coding Level of Care Code New Pt Level 4 (45906) Diagnoses Varicose veins of right lower extremity with inflammation I83.11
--- OUTSIDE RECORDS SUMMARY | 2025-03-08 14:30 | XMS_ITS | Encounter Summary ---
Author Organization [facility] Address [address] [place] [address] Care Team Providers Care Client Portfolio Manager Name Role Phone Bennie Yang MD Primary Care Provider [phone] Henrique Soler MD Primary Care Provider Unava ilable Reason for Visit * Reason Onset Date Comments Medication 09/13/2015 Encounter Details Date Type Department Care Team Description 09/13/2015 Telephone Adult Medicine [facility] [address] [place] [address] Bennie Yang MD [address] [place] [address] Medication Social History Tobacco Use Types Packs/Day [...] vehicle accident? NO If yes, gather 3rd democrat insurance information Date of accident/Injury: How long has patient had these symptoms?: PCP: Bennie Yang [place] / Product Type: [place]ICARE [id number] documented in this encounter Plan of Treatment Not on file documented as of this encounter Visit Diagnoses Not on filedocumented in this encounter Care Teams Client Portfolio Manager Relationship Specialty Start Date End Date Bennie Yang MD [address] [place] [id number] PCP - General Internal Medicine 06/19/15 03/31/18 Henrique Soler MD [address] [place] [id number] PCP - General Internal Medicine 04/01/18 documented as of this encounter
--- OUTSIDE RECORDS SUMMARY | 2025-03-08 14:30 | XMS_ITS | Encounter Summary ---
Author Organization [facility] [facility] Address [address] [place] [address] Care Team Providers Care Business Unit Director Name Role Phone Bennie Yang MD Primary Care Provider [phone] Henrique Soler MD Primary Care Provider Unava ilable Encounter Details Date Type Department Care Team Description 08/15/2015 Business Doc Medical Records [address] [place], [place] [id number] Abstract, Provider Social History Tobacco Use Types [...] on filedocumented in this encounter Care Teams Business Unit Director Relationship Specialty Start Date End Date Bennie Yang MD [address] [place], [place] [id number] PCP - General Internal Medicine 06/19/15 03/31/18 Henrique Soler MD [address] [place], [place] [id number] PCP - General Internal Medicine 04/01/18 documented as of this encounter
--- OUTSIDE RECORDS SUMMARY | 2025-03-08 14:30 | XMS_ITS | Encounter Summary ---
Author Organization [facility] [employer] [facility] Address [address] [place] [address] Care Team Providers Care Dry Cure Worker Name Role Phone Bennie Yang MD Primary Care Provider [phone] Henrique Soler MD Primary Care Provider Unava ilable Encounter Details Date Type Department Care Team Description 08/16/2016 Business Doc Medical Records [address] [place], [place] [id number] Abstract, Provider Social History Tobacco Use Types [...] on filedocumented in this encounter Care Teams Dry Cure Worker Relationship Specialty Start Date End Date Bennie Yang MD [address] [place], [place] [id number] PCP - General Internal Medicine 06/19/15 03/31/18 Henrique Soler MD [address] [place], [place] [id number] PCP - General Internal Medicine 04/01/18 documented as of this encounter
--- OUTSIDE RECORDS SUMMARY | 2025-03-08 14:30 | XMS_ITS | Clinical Summary ---
[facility] Organization [facility] Address [address] [place] [address] Care Team Providers Care Personnel Representative Name Role Phone Henrique Soler MD Primary Care Provider Unava ilable Allergies Active Allergy Reactions Severity Noted Date Comments Codeine Rash/Dermatitis 07/10/2015 Kdc:Propoxyphene+[place] Blue Fcf Rash/Dermatitis 07/10/2015 Ibuprofen Rash/Dermatitis 07/10/2015 Qujyesjayv-Rrwzqcojhs-Isgnqadbag Rash/Dermatitis 07/10/2015 Apap-Fd&C Red #40 Al Hagen-Oxycodone [...] HEPATITIS C SCREENING Completed 07/18/2015 Care Teams Personnel Representative Relationship Specialty Start Date End Date Henrique Soler MD PCP - General Internal Medicine 04/01/18
--- OUTSIDE RECORDS SUMMARY | 2025-03-08 14:30 | XMS_ITS | Encounter Summary ---
[facility] Organization [facility] Address [address] [place] [address] Care Team Providers Care Warrant Clerk Name Role Phone Bennie Yang MD Primary Care Provider [phone] Henrique Soler MD Primary Care Provider Unava ilable Reason for Visit * Reason Onset Date Comments APPOINTMENT 09/28/2015 Encounter Details Date Type Department Care Team Description 09/28/2015 Telephone Adult Medicine [facility] [address] [place] [address] Bennie Yang MD [address] [place] [address] APPOINTMENT Social History Tobacco Use Types Packs/Day Years Used Date Smoking Tobacco: Never Cigarettes Smokeless Tobacco: Never Alcohol Use Standard Drinks/Week Comments Yes 0 (1 standard drink = 0.6 oz pur e alcohol) holidays Sex Assigned at Date Recorded Not on file documented as of this encounter Miscellaneous Notes * Telephone Encounter - Jaswinder KleinPArnoldN. - 09/28/2015 4:04 PM EDT Appt booked for 11/08 at 3:30 patient Aware It is with Dr. Yang * Telephone Encounter - Rere Hendricks - 09/28/2015 10:49 AM EDT Follow up appointment not available. Please call patient to book-no open NON PUBLIC SLOTS. Appointment needed Per OBGYN, patient needs a follow up with Dr Trey trevino to go over bone density test results. documented in this encounter Plan of Treatment Not on file documented as of this encounter Visit Diagnoses Not on filedocumented in this encounter Care Teams Warrant Clerk Relationship Specialty Start Date End Date Bennie Yang MD [address] [place] [address] PCP - General Internal Medicine 06/19/15 03/31/18 Henrique Soler MD [address] [place] [address] PCP - General Internal Medicine 04/01/18 documented as of this encounter
--- OUTSIDE RECORDS SUMMARY | 2025-03-08 14:30 | XMS_ITS | Encounter Summary ---
Author Organization [facility] Address [address] [place] [address] Care Team Providers Care Dealer Compliance Representative Name Role Phone Bennie Yang MD Primary Care Provider [phone] Henrique Soler MD Primary Care Provider Unava ilable Encounter Details Date Type Department Care Team Description 10/11/2016 Business Doc Medical Records [address] [place], [place] [id number] Abstract, Provider Social History Tobacco Use Types [...] on filedocumented in this encounter Care Teams Dealer Compliance Representative Relationship Specialty Start Date End Date Bennie Yang MD [address] [place], [place] [id number] PCP - General Internal Medicine 06/19/15 03/31/18 Henrique Soler MD [address] [place], [place] [id number] PCP - General Internal Medicine 04/01/18 documented as of this encounter
--- OUTSIDE RECORDS SUMMARY | 2025-03-08 14:30 | XMS_ITS | Encounter Summary ---
Author Organization [facility] [employer] [facility] Address [address] [place] [address] Care Team Providers Care Attorney Lawyer Name Role Phone Bennie Yang MD Primary Care Provider [phone] Henrique Soler MD Primary Care Provider Unava ilable Encounter Details Date Type Department Care Team Description 07/20/2015 Business Doc Medical Records [address] [place], [place] [id number] Abstract, Provider Social History Tobacco Use Types [...] on filedocumented in this encounter Care Teams Attorney Lawyer Relationship Specialty Start Date End Date Bennie Yang MD [address] [place], [place] [id number] PCP - General Internal Medicine 06/19/15 03/31/18 Henrique Soler MD [address] [place], [place] [phone] PCP - General Internal Medicine 04/01/18 documented as of this encounter
--- OUTSIDE RECORDS SUMMARY | 2025-03-08 14:30 | XMS_ITS | Clinical Summary ---
Author Organization [facility] Address [address] [place] [phone] Phone Care Team Providers Care Chief Contract Officer Name Role Phone Henrique Soler MD Primary [...] 06/09/2022 Social Influencers of Health Screening 06/09/2022 Depression Screening 07/07/2024 COVID-19 Vaccine ( - season) 2025 Influenza Vaccine (#1) 2025 , 04/09/2021, 09/15/2020, [...] mg/dL LAB CHEMISTRY METHOD 11/12/2024 8:03 AM [facility] Triglycerides 80 0 - 150 mg/dL LAB CHEMISTRY METHOD 11/12/2024 8:03 AM [facility] HDL 71 >=40 mg/dL LAB CHEMISTRY METHOD 11/12/2024 8:03 AM [facility] LDL Calculated 116(H) 0 - 100 mg/dL LAB CHEMISTRY METHOD 11/12/2024 8:03 AM [facility] VLDL Cholesterol Randy 16 mg/dL LAB CHEMISTRY METHOD 11/12/2024 8:03 AM [facility] Non HDL Chol. (LDL+VLDL) 132 <145 mg/dL LAB CHEMISTRY METHOD 11/12/2024 8:03 AM [facility] Chol/HDL Ratio 2.9 0.0 - 4.4 LAB CHEMISTRY METHOD 11/12/2024 8:03 AM [facility] Blood Venous blood specimen / Unknown Venipuncture / Unknown 11/12/2024 6:15 AM EDT 11/12/2024 6:58 AM EDT us [facility] BLOOD ORDERABLES Final Re sult [facility] [address] [place] [address], * SCR MAMMO BI INCL CAD (09/02/2017 [...] Most Recently Relevant to Health Maintenance [place] [place] [address] MEDICARE Member Subscriber Plan / Payer (Ef fective 2022-Present) Name:JANNETTE MCQUEENA Relation to Subscriber:Self Name:Richar Sabrina Payer ID:[id number] Group ID:[id number] Type:Not on file Address: [place] [address] [place] [id number] Advance Directives Documents on File Type Date Recorded Patient Software Intern Expl anation Health Care Decision (hx) 04/01/2016 [...] currently active code status orders. Care Teams Chief Contract Officer Relationship Specialty Start Date End Date Henrique Soler MD [address] [place] [address] [address] [place] PCP - General Internal Medicine 06/18/14
== END 2025-03-08 13:54 | disposition home or self-care (01) ==
LOC: HO.HVS 13:11
PROVIDERS: PCP Internal Medicine; Visit Provider Surgery Vascular Surgery
DX: I83.11 Varicose veins of right lower extremity with inflammation (principal)
CPT/HCPCS: 99204

== ENCOUNTER → 2025-03-08 13:11 | Outpatient (BNVA) | payer OTHER, SELFPAY | PROVIDERS: PCP Internal Medicine; Visit Provider Surgery Vascular Surgery | DX: I83.11 Varicose veins of right lower extremity with inflammation (principal) | CPT/HCPCS: 99202 ==

== ENCOUNTER 2025-03-29 14:31 | Outpatient (AMB) | payer OTHER, SELFPAY ==
[2025-03-29 14:36] VITALS: BP 108/70; PULSE 84; O2SAT 100; BMI 37.5
--- NOTE | 2025-03-29 14:36 | A.OFFVIS_ITS ---
Vital Signs 3 03/29/25 14:36 Height 5 ft 6 in Weight 232 lb 9.403 oz BMI 37.5 BP 108/70 Blood Pressure Location Lt brachial Position Sitting Pulse 84 Pulse Source Pulse Oximeter Pulse Oximetry (%) 100 Oxygen Delivery Method Room Air Intake Visit Reasons: Nontoxic single thyroid nodule Intake Note: New patient present today for Nontoxic single thyroid nodule. Cellular Phone Repairer Required: Yes Cellular Phone Repairer Language: Custom Applicator Services: Cellular Phone Repairer Present Cellular Phone Repairer Name: Rodney Information Interpreted: non-clinical & clinical Accompanied by: ASSEMBLER TRIM Allergies codeine (Tylenol-Codeine #3) Allergy (Intermediate, Verified 03/29/25 14:43) Rash morphine Allergy (Intermediate, Verified 03/29/25 14:43) rash and itching nalbuphine (From Nubain) Allergy (Intermediate, Verified 03/29/25 14:43) Rash oxycodone (Percocet) Allergy (Intermediate, Verified 03/29/25 14:43) Rash propoxyphene (From Darvocet-N 100) Allergy (Intermediate, Verified 03/29/25 14:43) Rash tramadol (Ultram) Allergy (Intermediate, Verified 03/29/25 14:43) Rash ibuprofen (From Motrin) Allergy (Mild, Verified 03/29/25 14:43) RASH montelukast (Singulair) Allergy (Unknown, Verified 03/29/25 14:43) Unknown Medication List - Last Reconciled 03/29/25 by Florida Lawson MD [ADULT PULL-UPS -- MEDIUM SIZE As directed] [BED PADS As directed] bupropion HCl SR 200 mg PO BID buspirone 10 mg PO BID 30 days celecoxib (Celebrex) 200 mg PO BID 30 days cholecalciferol (vitamin D3) 50 mcg PO DAILY 90 days cyanocobalamin (vitamin B-12) 1,000 mcg PO DAILY 90 days divalproex 500 mg PO BID 30 days duloxetine 30 mg PO BID 30 days ergocalciferol (vitamin D2) (Vitamin D2) 1,250 mcg PO QWEEK [Heating Pad As directed] heating pads As directed [INCONTINENCE PADS Use as directed] [LEFT KNEE BRACE As directed] lemborexant (Dayvigo) mg PO DAILY loratadine 10 mg PO DAILY PRN 30 days lorazepam mg PO nortriptyline 25 mg PO BID 30 days pantoprazole 40 mg PO DAILY pregabalin 150 mg PO TID 30 days [QUAD CANE As directed] [QUAD CANE (lightweight) As directed] [RAISED TOILET SEAT As directed] [RIGHT KNEE BRACE As directed] [RIGHT THUMB SPLINT As directed] [RUBBER HANDLE/STITCH BONDING MACHINE DRAWER IN for 4-pronged aluminum cane As directed] [RUBBER TIPS FOR QUAD CANE As directed] [Semi electric hospital bed As directed Length of need: indefinite] trazodone 50 mg PO BEDTIME PRN 30 days Ventolin HFA 90 mcg/actuation (albuterol sulfate) 2 puffs inhalation Q4-6H PRN NS [WRIST BRACE (right wrist) - MEDIUM As directed] HPI Comments Details: 69-year-old female coming in today to establish care for multinodular goiter. February 2020: Diagnosed with thyroid nodules with a dominant left 2.4 cm nodule. 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 Ultrasound thyroid 03/02/2025: I reviewed the images myself which showed a heterogenous gland with the left superior 2 cm solid isoechoic TR 3 nodule. I compared the images and this is the same nodule that was biopsied previously in 2019. Has remained stable in size if anything measures smaller. Patient currently denies heat or cold intolerance, diarrhea or constipation, hair loss, palpitation, anxiety, weight changes, mood changes, low energy, changes in appearance of eyes or vision changes, tremors, increased diaphoresis or dry skin. ? complaining of leg swelling Patient denies any difficulty swallowing, pain on swallowing or voice changes or difficulty breathing. Patient denies any history of childhood neck radiation. Denies having ever used lithium, amiodarone or biotin supplements. Patient denies any family history of thyroid cancer or thyroid disease. Physical exam General: sitting comfortably in no acute distress HEENT: normocephalic/atraumatic, Neck: supple, Cardiac: normal heart sounds Pulm: normal breath sounds B/L, no added breath sounds Abd: not distended, no tenderness Extremities: Bilateral pitting edema Laboratory Tests 03/12/23 05/27/23 10/20/23 08:02 08:47 09:25 TSH 4.63 H 3.23 6.16 H Free T4 0.85 0.87 Total T3 06/16/24 10:38 TSH 3.69 Free T4 1.02 Total T3 110 US THYROID 03/02/25 CLINICAL INFORMATION: Nontoxic single thyroid nodule. COMPARISON: February 18, 2020. TECHNIQUE: Linear transducer grayscale and color Doppler examination with attention to the region of the thyroid. FINDINGS: SIZE: Measurements of the thyroid lobes and nodules are given in sagittal, anteroposterior and transverse dimensions respectively. Right Thyroid Lobe: 4.4 x 1.7 x 1.6 cm, volume 6 mL. Previous: 3.9 x 1.5 x 1.5 cm, volume: 4.6 cc. Parenchyma: The gland echotexture is heterogeneous. Thyroid vascularity is normal. Left Thyroid Lobe: 4.5 x 1.9 x 1.6 cm, volume 7.1 mL. Previous: 3.9 x 2.1 x 2.3 cm, volume: 9.9 disease. Parenchyma: The gland echotexture is heterogeneous. Thyroid vascularity is normal.. Isthmus: 0.4 cm in maximum AP dimension. Previous: 0.4 cm. Estimated total number of nodules greater than or equal to 1 cm: 1. Certified Ski Patroller nodules are described as follows: 1. Location: Upper pole left thyroid lobe.. Size: 2.0 x 1.7 x 1.7 cm, volume 2.98 mL. Previous: 2.4 x 1.7 x 2.2 cm, volume: 4.69 cc. Nodule characteristics: Composition: Solid (2). Echogenicity: Isoechoic (1). Shape: Not taller than wide (0). Margins: Smooth (0). Echogenic Foci: None (0). ACR TI-RADS total points: 3 ACR TI-RADS category: 3 NODES: No lymphadenopathy is seen in the tissue surrounding the thyroid gland. US/US thyroid IMPRESSION: ACR TI-RADS 3 PFSH Medical History Folliculitis Pure hypercholesterolemia Allergic rhinitis Insomnia Multiple joint pain GERD without esophagitis Vitamin D deficiency Lumbar spondylosis Obesity (BMI 30-39.9) Migraine Primary osteoarthritis of both knees Urinary incontinence Rotator cuff tear, left Depression Asthma Fibromyalgia Non-toxic multinodular goiter Anxiety Surgical History Status post rotator cuff surgery S/P rotator cuff repair Status post right rotator cuff repair (~07/26/18) History of hysterectomy History of cholecystectomy History of laminectomy (~2009) Family History Father Diabetes Mother Medical history unknown Social History Household Members: None Housing: Apartment Do you presently have visiting nurse or other home services: No Alcohol intake: former Patient Tobacco Use Status: Never used Tobacco e-Cigarette/Vaping Use: Never Used Second Hand Smoke Exposure: No service: No Current occupational status: disabled Cognitive needs: Yes (cane) Hearing needs: No Vision needs: Yes (glasses) Physical Exam Vital Signs: Last Vital Signs Pulse 84 03/29/25 14:36 BP 108/70 03/29/25 14:36 Pulse Ox 100 03/29/25 14:36 Oxygen Delivery Method Room Air 03/29/25 14:36 BMI result Body Mass Index 37.5 Assessment & Plan Assessment & Plan (1) Non-toxic multinodular goiter: Code(s): E04.2 - Nontoxic multinodular goiter Category: Medical Plan: 69-year-old female coming in today to establish care for multinodular goiter. February 2020: Diagnosed with thyroid nodules with a dominant left 2.4 cm nodule. 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 Ultrasound thyroid 03/02/2025: I reviewed the images myself which showed a heterogenous gland with the left superior 2 cm solid isoechoic TR 3 nodule. I compared the images and this is the same nodule that was biopsied previously in 2020. Has remained stable in size if anything measures smaller. I explained that it is common to have thyroid nodules. About 95% of the time these nodules are benign. However if the nodule is > 1 cm in size or suspicious on ultrasound then a fine need aspiration biopsy is recommended. At this time given her dominant nodule was previously biopsied and had benign Afirma results, 4% risk of malignancy which has remained stable over the past 5 years, this is reassuring. She does not need a repeat biopsy. Because she did not have any ultrasounds from 08/08/2019 102, I will see her once more next year with repeat ultrasound to look at stability of the nodule. If it remains stable in size, then would consider stopping monitoring unless any clinical changes. She does not have any compressive symptoms. Most recent thyroid function from June 2024 was absolutely normal. In the past she has had mild TSH elevations here in their intermittently. Plan: -ordered ultrasound of the thyroid to be done in February 2026 prior to follow up in March 2026 -ordered TSH, free T4 to be done prior to follow up in March 2026 Plan I spent 45 minutes in reviewing the record, seeing the patient and documenting in the medical record. Orders: Orders 2 Thyroid Peroxidase Antibodies 02/20/26 E04.2 - Nontoxic multinodular goiter US thyroid 02/20/26 E04.2 - Nontoxic multinodular goiter Thyroid Stimulating Hormone 02/20/26 E04.2 - Nontoxic multinodular goiter Free T4 (Free Thyroxine) 02/20/26 E04.2 - Nontoxic multinodular goiter Patient Instructions: Do ultrasound of the thyroid in February 2026, someone we will call you to schedule this, please make sure this is done a few weeks prior to your next appointment with me in March 2026. Do thyroid blood work a few days prior to your next appointment with me in March 2026, orders have been placed. H?gase alena ecograf?a de tiroides en agustín 2025. Le llamaremos para programarla. Aseg?rese de que se realice unas semanas antes de rodrigues pr?xima maribell conmigo en 2025. H?gase un an?lisis de levi de tiroides unos d?as antes de rodrigues pr?xima maribell conmigo en 2025. Ya se calderon realizado los pedidos. Coding Level of Care Code New Pt Level 4 (72826) Diagnoses Non-toxic multinodular goiter E04.2 Time Spent (min) 45
--- OUTSIDE RECORDS SUMMARY | 2025-03-29 17:44 | XMS_ITS | Clinical Summary ---
Author Organization [facility] Address [address] [place] [phone] Phone Care Team Providers Care Supervisor Smoke Control Name Role Phone Henrique Soler MD Primary [...] 8:03 AM [facility] Triglycerides 80 0 - 150 mg/dL LAB CHEMISTRY METHOD 11/12/2024 8:03 AM [facility] HDL 71 >=40 mg/dL LAB CHEMISTRY METHOD 11/12/2024 8:03 AM [facility] LDL Calculated 116(H) 0 - 100 mg/dL LAB CHEMISTRY METHOD 11/12/2024 8:03 AM [facility] VLDL Cholesterol Randy 16 mg/dL LAB CHEMISTRY METHOD 11/12/2024 8:03 AM [facility] Non HDL Chol. (LDL+VLDL) 132 <145 mg/dL LAB CHEMISTRY METHOD 11/12/2024 8:03 AM [facility] Chol/HDL Ratio 2.9 0.0 - 4.4 LAB CHEMISTRY METHOD 11/12/2024 8:03 AM [facility] Blood Venous blood specimen / Unknown Venipuncture / Unknown 11/12/2024 6:15 AM EDT 11/12/2024 6:58 AM EDT us [facility] BLOOD ORDERABLES Final Re sult [facility] ([facility]) [facility] [address] [place] [address], * SCR MAMMO BI INCL CAD (09/02/2017 [...] Relevant to Health Maintenance Insurance [address] [address] MEDICARE Member Subscriber Plan / Payer (Ef fective 2022-Present) Name:JANNETTE MCQUEENA Relation to Subscriber:Self Name:Richar Sabrina Payer ID:[id number] Group ID:[id number] Type:Not on file Address: [place] [address] [address] [id number] Advance Directives Documents on File Type Date Recorded Patient Specialty Development Consultant Expl anation Health Care Decision (hx) [...] currently active code status orders. Care Teams Supervisor Smoke Control Relationship Specialty Start Date End Date Henrique Soler MD [address] [place] [address] [address] [place] PCP - General Internal Medicine 06/18/14
== END 2025-03-29 15:16 | disposition home or self-care (01) ==
LOC: HO.ENCR 14:32
PROVIDERS: PCP Internal Medicine; Visit Provider Student in an Organized Health Care Education/Training Program
DX: E04.2 Nontoxic multinodular goiter (principal)
CPT/HCPCS: 99204

== ENCOUNTER → 2025-03-29 14:31 | Outpatient (BNVA) | payer OTHER, SELFPAY | PROVIDERS: PCP Internal Medicine; Visit Provider Student in an Organized Health Care Education/Training Program | DX: E04.2 Nontoxic multinodular goiter (principal) | CPT/HCPCS: 99202 ==

== ENCOUNTER 2025-04-06 14:32 | Outpatient (AMB) | payer OTHER, SELFPAY ==
[2025-04-06 14:36] VITALS: BP 122/74; PULSE 76; TEMP 36.2; O2SAT 98; BMI 37.5
--- NOTE | 2025-04-06 14:36 | MHC.PC.OV ---
Vital Signs 04/06/25 14:36 Height 5 ft 6 in Weight 232 lb 9.403 oz BMI 37.5 BP 122/74 Blood Pressure Location Lt brachial Position Sitting Pulse 76 Pulse Source Pulse Oximeter Temp 97.1 F Temp Source Temporal Artery Scan Pulse Oximetry (%) 98 Oxygen Delivery Method Room Air Intake Visit Reasons: 3mth f/u Accompanied by: sheet taker Allergies codeine (Tylenol-Codeine #3) Allergy (Intermediate, Verified 04/06/25 14:51) Rash morphine Allergy (Intermediate, Verified 04/06/25 14:51) rash and itching nalbuphine (From Nubain) Allergy (Intermediate, Verified 04/06/25 14:51) Rash oxycodone (Percocet) Allergy (Intermediate, Verified 04/06/25 14:51) Rash propoxyphene (From Darvocet-N 100) Allergy (Intermediate, Verified 04/06/25 14:51) Rash tramadol (Ultram) Allergy (Intermediate, Verified 04/06/25 14:51) Rash ibuprofen (From Motrin) Allergy (Mild, Verified 04/06/25 14:51) RASH montelukast (Singulair) Allergy (Unknown, Verified 04/06/25 14:51) Unknown Medication List - Last Reconciled 04/06/25 by Henrique Soler MD [ADULT PULL-UPS -- MEDIUM SIZE As directed] [BED PADS As directed] bupropion HCl SR 200 mg PO BID buspirone 10 mg PO BID 30 days celecoxib (Celebrex) 200 mg PO BID 30 days cholecalciferol (vitamin D3) 50 mcg PO DAILY 90 days cyanocobalamin (vitamin B-12) 1,000 mcg PO DAILY 90 days divalproex 500 mg PO BID 30 days duloxetine 30 mg PO BID 30 days ergocalciferol (vitamin D2) (Vitamin D2) 1,250 mcg PO QWEEK [Heating Pad As directed] heating pads As directed [INCONTINENCE PADS Use as directed] [LEFT KNEE BRACE As directed] lemborexant (Dayvigo) mg PO DAILY loratadine 10 mg PO DAILY PRN 30 days lorazepam mg PO nortriptyline 25 mg PO BID 30 days pantoprazole 40 mg PO DAILY pregabalin 150 mg PO TID 30 days [QUAD CANE As directed] [QUAD CANE (lightweight) As directed] [RAISED TOILET SEAT As directed] [RIGHT KNEE BRACE As directed] [RIGHT THUMB SPLINT As directed] [RUBBER HANDLE/DOPE AND FAB[employer] WORKER for 4-pronged aluminum cane As directed] [RUBBER TIPS FOR QUAD CANE As directed] [Semi electric hospital bed As directed Length of need: indefinite] trazodone 50 mg PO BEDTIME PRN 30 days Ventolin HFA 90 mcg/actuation (albuterol sulfate) 2 puffs inhalation Q4-6H PRN NS [WRIST BRACE (right wrist) - MEDIUM As directed] Tobacco use date assessed: 04/06/25 Fall risk assessment: 2 + Falls in past year Last assessed Fall Risk: 04/06/25 Dental Screening Dental Screen Date: 04/06/25 Did you have a dental visit in the last 12 months?: Yes Did you have a dental problem in the last 6 months where you did not have access to dental care?: No Was dental information given to patient?: Patient has dentist HPI 3mth f/u HPI Details Patient comes in today for her follow up visit - she is again accompanied by her stepdaughter, who is now helping with her overall care States that she is still experiencing increased pain all over and especially over her lower back and in her legs and is wondering what she can take or do to help relieve her pain States that she is also still experiencing frequent swelling of her legs and feet, which contributes to her pain more She is very limited in terms of her options as she is intolerant of most opioids due to side effects (rash), including to Tramadol, and also has side effects from Ibuprofen She was seen by vascular surgery last month and was advised that she likely has venous insufficiency and is scheduled for testing for this in a couple of weeks on 04/19/2025, after which she will be seen again to explore/discuss her available Tx options She denies any headaches or dizziness Denies any exertional chest pains, no increased SOB No nausea/vomiting, no abdominal pain No change in bowel habits noted She was also seen by Dr. Lawson last week for her thyroid nodule and was reassured that her nodule was benign and will be seeing her again in 1 year for follow up Needs her [facility]ad[facility] Rx ref[facility] Medical History Folliculitis Pure hypercholesterolemia Allergic rhinitis Insomnia Multiple joint pain GERD without esophagitis Vitamin D deficiency Lumbar spondylosis Obesity (BMI 30-39.9) Migraine Primary osteoarthritis of both knees Urinary incontinence Rotator cuff tear, left Depression Asthma Fibromyalgia Non-toxic multinodular goiter Anxiety Surgical History Status post rotator cuff surgery S/P rotator cuff repair Status post right rotator cuff repair (~07/26/18) History of hysterectomy History of cholecystectomy History of laminectomy (~2009) Family History Father Diabetes Mother Medical history unknown Social History Household Members: None Housing: Apartment Do you presently have visiting nurse or other home services: No Alcohol intake: former Patient Tobacco Use Status: Never used Tobacco e-Cigarette/Vaping Use: Never Used Second Hand Smoke Exposure: No service: No Current occupational status: disabled Cognitive needs: Yes (cane) Hearing needs: No Vision needs: Yes (glasses) Questionnaire PHQ-9 Over the last 2 weeks, how often have you been bothered by any of the following problems? 1. Little interest or pleasure in doing things: more than half the days 2. Feeling down, depressed, or hopeless: more than half the days 3. Trouble falling or staying asleep, or sleeping too much: several days 4. Feeling tired or having little energy: more than half the days 5. Poor appetite or overeating: nearly every day 6. Feeling bad about yourself - or that you are a failure or have let yourself or your family down: more than half the days 7. Trouble concentrating on things, such as reading the newspaper or watching television: several days 8. Moving or speaking so slowly that other people could have noticed. Or the opposite - being so fidgety or restless that you have been moving around a lot more than usual: more than half the days 9. Thoughts that you would be better off or of hurting yourself in some way: not at all Total score: 15 Depression Screening Interpretation: Positive Depression Screening Follow-up: Existing condition and In treatment Depression Screening Done: Yes 14699 - PHQ-9 Billing: Yes Source: Developed by Drs. Lang Pacheco, Kelsey Lund, Filemon Grewal and colleagues, with an educational juvenal from [employer]. Thrive Questionnaire Date Thrive assessed: 12/31/24 I am a: Patient What is your living situation today?: I have a steady place to live Within the past 12 months, did the food you bought not last and you didn't have the money to get more?: Often true Within the past 12 months, did you worry whether your food would run out before you got money to buy more?: Often true Do you have trouble paying for medicines?: No Do you have trouble getting transportation to medical appointments?: No Do you have trouble paying your heating and electricity bill?: No Do you have trouble taking care of your child, family member or friend?: No Do you have trouble with day-to-day activities such as bathing, preparing meals, shopping, managing finances, etc.?: Yes Are you currently unemployed and looking for a job?: Yes Are you interested in more education?: No Please select the resources that you would like help with: Food Currently or been in a relationship where the following occur: No concerns reported THRIVE Score: 2 AUDIT C Alcohol Use Questionnaire (AUDIT-C) 1. How often do you have a drink containing alcohol?: Never 3. How often do you have six or more drinks on one occasion?: Never Total Score: 0 Score Reviewed/Action Taken: Yes FLACO-7 AMB Questionnaire FLACO-7 Date FLACO - 7 assessed: 01/24/25 Feeling nervous, anxious, or on edge: 2 = More than half the days Not being able to stop or control worryin = More than half the days Worrying too much about different things: 2 = More than half the days Trouble relaxin = More than half the days Being so restless that it is hard to sit still: 2 = More than half the days Becoming easily annoyed or irritable: 2 = More than half the days Feeling afraid as if something awful might happen: 0 = Not at all Total FLACO-7 score (0-4 normal; 5-9 mild; 10-14 moderate; 15-21 severe): 12 Source: Developed by Drs. Lang Pacheco, Kelsey Lund, Filemon Grewal and colleagues, with an educational juvenal from [employer]. Review of Systems Const Reports body aches (diffuse), Denies chills, Reports difficulty sleeping, Reports fatigue (chronic), Denies fever(s) and Denies headache(s) ENT Denies dysphagia, Denies dizziness, Denies otalgia, Denies headache(s), Reports neck pain (chronic), Denies odynophagia and Denies sore throat Card Denies chest pain, Denies irregular heart rhythm, Denies palpitations and Reports dyspnea on exertion (mild) Resp Denies chest congestion, Denies cough and Reports dyspnea on exertion (mild) GI Denies abdominal pain, Denies constipation, Denies dysphagia, Denies heartburn, Denies diarrhea, Denies nausea, Denies odynophagia and Denies vomiting Denies difficulty voiding, Denies nocturia, Denies dysuria, Reports urinary incontinence (at times) and Denies urinary urgency Musc Reports abnormal gait (unsteady), Reports back pain (over the lower back (chronic)), Reports arthralgias (left shoulder - S/P surgery in 03/2021), Reports neck pain (chronic) and Reports stiffness (left shoulder) Skin/Breast Denies rash Neuro Reports abnormal gait (unsteady), Denies dizziness, Denies headache(s) and Denies paresthesias Psych Denies anxiety and Denies depression Endo Reports fatigue (chronic) and Denies palpitations Corona/Lymph Denies easy bruising Physical exam (Primary Care) Vital Signs: Last Vital Signs Temp 97.1 F 04/06/25 14:36 Pulse 76 04/06/25 14:36 BP 122/74 04/06/25 14:36 Pulse Ox 98 04/06/25 14:36 Oxygen Delivery Method Room Air 04/06/25 14:36 BMI result Body Mass Index 37.5 Tobacco/Smoking Status: Tobacco use Status Tobacco use date assessed 04/06/25 04/06/25 14:41 Patient Tobacco Use Status Never used Tobacco 04/06/25 14:41 Tobacco use type 11/30/24 12:25 e-Cigarette/Vaping Use Never Used 04/06/25 14:41 PHQ-9: PHQ-9 Score PHQ-9: Total score 15 04/06/25 15:02 Depression Screening Interpretation: Positive Depression Screening Follow-up: Existing condition and In treatment Thrive Assessment: Date of Thrive Assessment Date Thrive assessed 12/31/24 04/06/25 14:41 Currently or been in a relationship where the following occur: No concerns reported Const General: no acute distress and alert HENMT Ears: TM's normal bilaterally and EAC's normal Throat: Yes posterior oropharynx normal and Yes tonsils normal (no TP congestion) Neck Neck: Yes supple and No lymphadenopathy Thyroid: Thyroid normal Resp Auscultation: clear to auscultation bilaterally, no rales and no wheezes Cardio Rate: regular rate Rhythm: regular rhythm Heart sounds: no murmurs GI Palpation (GI): Soft to palpation and nontender Auscultation: normal bowel sounds General: Yes no CVA tenderness Back/Spine/Pelvis Back: no CVA tenderness Cervical Spine: cervical muscular tenderness and Cervical spine tenderness Thoracic/Lumbar Spine: paraspinal muscle tenderness bilaterally in the upper thoracic, in the mid lumbar and in the lower lumbar and on the left greater than right and lumbar spinal tenderness Skin Rashes: no rashes Extrem General: No clubbing, No cyanosis and Yes pedal edema (trace, bilateral) Left upper extremity: shoulder/upper arm Details: tenderness Location: of the A-C joint and normal ROM; no swelling Coding Level of Care Code Est Pt Level 4 (13613) Diagnoses Non-toxic multinodular goiter E04.2 Bilateral lower extremity edema R60.0 Lumbar spondylosis M47.816 Mild persistent asthma without complication J45.30 Asthma severity: mild Asthma persistence: persistent Asthma complication type: uncomplicated Migraine without status migrainosus, not intractable, unspecified migraine type G43.909 Migraine type: unspecified Status migrainosus presence: without status migrainosus Intractability: not intractable Fibromyalgia M79.7 Rotator cuff tear arthropathy of left shoulder M75.102; M12.812 Primary osteoarthritis of both knees M17.0 Allergic rhinitis, unspecified seasonality, unspecified trigger J30.9 Allergic rhinitis trigger: unspecified Allergic rhinitis seasonality: unspecified GERD without esophagitis K21.9 Vitamin D deficiency E55.9 Vitamin B12 deficiency E53.8 Insomnia, unspecified type G47.00 Insomnia type: unspecified Anxiety F41.9 Depression, unspecified depression type F32.9 Depression Type: unspecified Obesity (BMI 30-39.9) E66.9 Additional Codes PHQ-9 - 33099 - PHQ-9 Billing: Yes ([id number]) Assessment & Plan Assessment & Plan (1) Non-toxic multinodular goiter: Code(s): E04.2 - Nontoxic multinodular goiter Category: Medical Plan: (+) enhancing left thyroid nodule was incidentally seen on head and neck CTA done at [facility] in November 2024 She was then sent for thyroid US, which revealed (+) multiple thyroid nodules with a dominant left 2.4 cm nodule Patient was referred to and seen by Dr. Lawson for consultation and Dr. Lawson reassured her that the nodule is benign and will just need repeat imaging and follow up in 1 year (2) Bilateral lower extremity edema: Code(s): R60.0 - Localized edema Category: Medical Plan: Patient was seen by vascular surgery last month and was advised that based on her symptoms, she likely has venous insufficiency of the lower extremities She is now scheduled for venous insufficiency testing in a couple of weeks and will then be seen again by vascular surgery to discuss Tx options based on her results Follow up with vascular surgery as scheduled (3) Lumbar spondylosis: Code(s): M47.816 - Spondylosis without myelopathy or radiculopathy, lumbar region Category: Medical Plan: Reinforced activity and weight-lifting restrictions Continue Methocarbamol 750 mg TID PRN and Duloxetine 30 mg QD MRI of the lumbar spine last done in 05/2021 revealed s/p instrumented fusion at the L2-L3 level with laminectomy changes, with no significant canal or foraminal compromise, stable in appearance. Stable discogenic degenerative changes at multiple levels, with stable multilevel bilateral facet arthropathy. Multilevel disc bulging and foraminal disc protrusions are again noted, similar to the previous exam with no significant central spinal canal stenosis. No significant neural foraminal stenosis. No abnormal enhancement within the limitations of the study. Repeat lumbar spine x-rays done at [facility] last year showed stable post-op changes with no acute findings She was referred to physical therapy last year because of increased pain, especially over her left lower back, with radiation of pain down the left leg but it does not look like she was seen by PT as we have not received any updated correspondence on this Repeat x-rays of the lumbar spine done in August 2024 revealed (+) chronic changes with no acute findings She was also seeing pain management previously and was going to have a trial of ROSARIO soon as mentioned at her last visit but we have not received any updates on this since We referred her back to pain management previously for her increased low back pain and she was last seen by them in August 2024 - it appears that she was scheduled for a diagnostic bilateral L3-L4 DR L5 medial branch blocks with local and fluoroscopy last month but patient did not show up for her appointment Patient appears to be unable to keep up with her appointments as she does not seem to be able to recall them Have advised patient stepdaughter to take charge of this is well and that she should try to reach out to pain management next door to scheduled patient's next follow-up with them CARI It appears that patient was scheduled for some procedure (injection) with pain management on 10/14/24 and then again on 01/06 but she no-showed both times and Dr. Castrejon will not schedule her again Have advsised patient's stepdaughter to call up pain management herself and explain patient's situation to them and see if they will reconsider scheduling her again for the procedure (4) Asthma: Code(s): J45.909 - Unspecified asthma, uncomplicated Category: Medical Qualifiers: Asthma severity: mild Asthma persistence: persistent Asthma complication type: uncomplicated Qualified Code(s): J45.30 - Mild persistent asthma, uncomplicated Plan: Controlled Continue Flovent HFA 110 mcg 1 inhalation BID and Albuterol HFA 2 puffs 4 times a day as needed; she also has Albuterol nebulization to use as needed (5) Migraine: Code(s): G43.909 - Migraine, unspecified, not intractable, without status migrainosus Category: Medical Qualifiers: Migraine type: unspecified Status migrainosus presence: without status migrainosus Intractability: not intractable Qualified Code(s): G43.909 - Migraine, unspecified, not intractable, without status migrainosus Plan: Stable/controlled on prophylactic Tx Continue Nortriptyline 25 mg Q BID Reinforced again avoidance of all potential migraine triggers (6) Fibromyalgia: Code(s): M79.7 - Fibromyalgia Category: Medical Plan: She is encouraged again on regular exercise and physical activity to help manage her fibromyalgia symptoms Continue Pregabalin 150 mg TID, Nortriptyline 25 mg BID and Duloxetine 30 mg BID She was seen at [facility] by Dr. Darnell many years ago and she has not been back in a few years She was referred back to [facility] for further evaluation and management - was seen by Dr. Tavarez last year and she was advised to continue on her current Rx with no further recommendations; was also advised to just follow up with her PCP (7) Rotator cuff tear arthropathy of left shoulder: Comment: S/P left rotator cuff surgery in September [address] Velázquez Code(s): M75.102 - Unspecified rotator cuff tear or rupture of left shoulder, not specified as traumatic; M12.812 - Other specific arthropathies, not elsewhere classified, left shoulder Category: Medical Plan: She was seen previously by orthopedics and was recommended to continue with gentle physical therapy of her left shoulder but patient states that this did not really help much Repeat MRI of the shoulder done at [facility] on 02/26/2024 revealed (+) mild glenohumeral joint osteoarthritis with joint effusion and diffuse synovitis. The rotator cuff repair and prior biceps tenodesis appear intact and there are no evidence of recurrent tear. There is mild supraspinatus and infraspinatus muscle atrophy. S/P acromioplasty Follow up with orthopedics as scheduled (8) Primary osteoarthritis of both knees: Code(s): M17.0 - Bilateral primary osteoarthritis of knee Category: Medical Plan: Follow up with orthopedics as scheduled Has knee braces that she wears as needed for added stability to her knees and to help reduce her knee pain (9) Allergic rhinitis: Code(s): J30.9 - Allergic rhinitis, unspecified Category: Medical Qualifiers: Allergic rhinitis trigger: unspecified Allergic rhinitis seasonality: unspecified Qualified Code(s): J30.9 - Allergic rhinitis, unspecified Plan: Continue Loratadine 10 mg QD PRN - Rx refilled (10) GERD without esophagitis: Code(s): K21.9 - Gastro-esophageal reflux disease without esophagitis Category: Medical Plan: Dietary restrictions reinforced Continue Pantoprazole 40 mg QD (11) Vitamin D deficiency: Code(s): E55.9 - Vitamin D deficiency, unspecified Category: Medical Plan: Continue Vitamin D2 71915 units once a week (12) Vitamin B12 deficiency: Code(s): E53.8 - Deficiency of other specified B group vitamins Category: Medical Plan: Continue Vitamin B12 1000 mcg twice a week - she was instructed to cut back on her dosing from daily to BIW as her serum B12 level was very high on her previous labs (13) Insomnia: Comment: was on Trazodone 150 mg in the past but has not refilled Rx since 2016 Code(s): G47.00 - Insomnia, unspecified Category: Medical Qualifiers: Insomnia type: unspecified Qualified Code(s): G47.00 - Insomnia, unspecified Plan: Sleep hygiene reinforced Continue Trazodone 50 mg Q HS PRN Have advised patient that her frequent awakening from sleep at night is likely multifactorial, including her recently increased low back pain as well as her urinary frequency and that addressing these issues should eventually lead to less awakenings and better and more restful sleep at night (14) Anxiety: Code(s): F41.9 - Anxiety disorder, unspecified Category: Medical Plan: Continue Lorazepam 0.5 mg TID PRN, Hydroxyzine 25 mg TID PRN and Buspirone 10 mg BID Follow up with psychiatry as scheduled (15) Depression: Code(s): F32.9 - Major depressive disorder, single episode, unspecified Category: Medical Qualifiers: Depression Type: unspecified Qualified Code(s): F32.9 - Major depressive disorder, single episode, unspecified Plan: Continue Budeprion SR 100 mg 2 tablets BID Follow up with psychiatry as scheduled (16) Obesity (BMI 30-39.9): Code(s): E66.9 - Obesity, unspecified Category: Medical Plan: Reinforced diet; weight loss and exercise are unrealistic given patient's multiple physical issues and limited activity tolerance Plan Patient is instructed to get her follow up labs done again BEFORE she returns for her next appointment Follow up in 3 months Orders: Orders Comprehensive [place]. Panel Fast 3 Months E78.00 - Pure hypercholesterolemia, unspecified UA CC w/rflx Micro + Cult 3 Months R30.0 - Dysuria Vitamin D 25-OH Total 3 Months E55.9 - Vitamin D deficiency, unspecified Complete Blood Count Auto Diff 3 Months D64.9 - Anemia, unspecified Lipid Panel 3 Months E78.00 - Pure hypercholesterolemia, unspecified TSH reflex Free T4 3 Months E78.00 - Pure hypercholesterolemia, unspecified Vitamin B12 and Folate 3 Months E53.8 - Deficiency of other specified B group vitamins Medications: Refilled loratadine 10 mg PO DAILY PRN 30 tabs 5RF allergy symptoms 30 days
--- OUTSIDE RECORDS SUMMARY | 2025-04-06 15:43 | XMS_ITS | Clinical Summary ---
Author Organization [facility] Address [address] [place] [phone] Phone Care Team Providers Care Burlesque Dancer Name Role Phone Henrique Soler MD Primary Care Provider [phone] Allergies Active Allergy Reactions Criticality Noted Date [...] Safety Answer Date Record ed Physical Abuse Unrecognized value 11/24/2024 Verbal Abuse Unrecognized value 11/24/2024 Comments Unknown Sex and Gender Information [...] Screening 06/09/2022 Depression Screening 07/07/2024 COVID-19 Vaccine (1 - season) 2025 Influenza Vaccine (#1) 2025 [...] mg/dL LAB CHEMISTRY METHOD 11/12/2024 8:03 AM [facility] Triglycerides 80 0 - 150 mg/dL LAB CHEMISTRY METHOD 11/12/2024 8:03 AM [facility] HDL 71 >=40 mg/dL LAB CHEMISTRY METHOD 11/12/2024 8:03 AM [facility] LDL Calculated 116(H) 0 - 100 mg/dL LAB CHEMISTRY METHOD 11/12/2024 8:03 AM [facility] VLDL Cholesterol Randy 16 mg/dL LAB CHEMISTRY METHOD 11/12/2024 8:03 AM [facility] Non HDL Chol. (LDL+VLDL) 132 <145 mg/dL LAB CHEMISTRY METHOD 11/12/2024 8:03 AM [facility] Chol/HDL Ratio 2.9 0.0 - 4.4 LAB CHEMISTRY METHOD 11/12/2024 8:03 AM [facility] Blood Venous blood specimen / Unknown Venipuncture / Unknown 11/12/2024 6:15 AM EDT 11/12/2024 6:58 AM EDT us Jojo [facility] LAB BLOOD ORDERABLES Final Re s[facility] [address] [place] [address], * SCR MAMMO BI INCL CAD (09/02/2017 [...] Final Result * Hepatitis C Screening (07/18/2015) Pathologist [facility] Hepatitis C Screening Abstracted us Historical Provider HEALTH MAINTENANCE Final Result from Last 3 Months or Most Recently Relevant to Health Maintenance Insurance [employer] MEDICARE Member Subscriber Plan / Payer (Ef fective 2022-Present) Name:ELMA MCQUEENLIA Relation to Subscriber:Self Name:Sabrina Mcqueen Payer ID:[id number] Group ID:[id number] Type:Not on file Address: [place] [address] [place] [phone] Advance Directives Documents on File Type Date Recorded Patient 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 Care Teams Burlesque Dancer Relationship Specialty Start Date End Date Henrique Soler MD [address] [place] [address] [address] ABIGAIL Walsh PCP - General Internal Medicine 06/18/14
== END 2025-04-06 15:07 | disposition home or self-care (01) ==
LOC: HO.HMCH 14:33
PROVIDERS: PCP Internal Medicine; Visit Provider Internal Medicine
DX: E04.2 Nontoxic multinodular goiter (principal); R60.0 Localized edema; M47.816 Spondylosis without myelopathy or radiculopathy, lumbar region; J45.30 Mild persistent asthma, uncomplicated; G43.909 Migraine, unspecified, not intractable, without status migrainosus; M79.7 Fibromyalgia; M75.102 Unspecified rotator cuff tear or rupture of left shoulder, not specified as traumatic; M12.812 Other specific arthropathies, not elsewhere classified, left shoulder; M17.0 Bilateral primary osteoarthritis of knee; J30.9 Allergic rhinitis, unspecified; K21.9 Gastro-esophageal reflux disease without esophagitis; E55.9 Vitamin D deficiency, unspecified

== ENCOUNTER → 2025-04-06 14:32 | Outpatient (BNVA) | payer OTHER, SELFPAY | PROVIDERS: PCP Internal Medicine; Visit Provider Internal Medicine | DX: E04.2 Nontoxic multinodular goiter (principal); R60.0 Localized edema; M47.816 Spondylosis without myelopathy or radiculopathy, lumbar region; J45.30 Mild persistent asthma, uncomplicated; G43.909 Migraine, unspecified, not intractable, without status migrainosus; M79.7 Fibromyalgia; M12.812 Other specific arthropathies, not elsewhere classified, left shoulder; M17.0 Bilateral primary osteoarthritis of knee; M75.102 Unspecified rotator cuff tear or rupture of left shoulder, not specified as traumatic; J30.9 Allergic rhinitis, unspecified; K21.9 Gastro-esophageal reflux disease without esophagitis; E55.9 Vitamin D deficiency, unspecified; E53.8 Deficiency of other specified B group vitamins; G47.00 Insomnia, unspecified; F41.9 Anxiety disorder, unspecified; F32.9 Major depressive disorder, single episode, unspecified; E66.9 Obesity, unspecified; E78.00 Pure hypercholesterolemia, unspecified; R30.0 Dysuria; D64.9 Anemia, unspecified | CPT/HCPCS: 96127; 99212 ==

== ENCOUNTER 2025-04-19 12:43 | Outpatient (REF) | payer OTHER, SELFPAY ==
--- NOTE | ~2025-04-19 | US_ITS ---
d EXAMINATION: US LOWER EXTREMITY VENOUS (REFLUX EXAM), BILATERAL CLINICAL INFORMATION: Varicose veins of the lower extremity with inflammation COMPARISON: None. TECHNIQUE: Color flow triplex imaging and compression Doppler was performed to evaluate both the deep and the superficial systems bilaterally. To evaluate the superficial system, the examination was performed in the upright position. Color-flow Doppler ultrasound and compression ultrasound were utilized. In addition, maneuvers were utilized to demonstrate reflux. FINDINGS: 1. DEEP VENOUS ULTRASOUND OF THE RIGHT LOWER EXTREMITY: Common Femoral Vein: Compressible, normal respiratory variation and augmented flow. Femoral Vein: Compressible, normal color flow and augmentation. Popliteal Vein: Compressible, normal augmentation. Deep Reflux: There is no evidence of reflux in the deep system in either the common femoral vein, superficial femoral or the popliteal vein. 2. SUPERFICIAL ULTRASOUND WITH DOPPLER OF RIGHT LOWER EXTREMITY: GREAT SAPHENOUS VEIN: Saphenofemoral Junction: 0.4 cm; Reflux: 0 ms Proximal Thigh: 0.5 cm; Reflux: 0 ms Mid Thigh: 0.4 cm; Reflux: 0 ms Distal Thigh: 0.3 cm; Reflux: 0 ms At Knee: 0.4 cm; Reflux: 0 ms Below Knee/Proximal Calf: 0.3 cm; Reflux: 0 ms Mid Calf: 0.2 cm; Reflux: 0 ms Ankle/Distal Calf: 0.2 cm; Reflux: 0 ms Lateral accessory GREAT SAPHENOUS VEIN: Saphenofemoral Junction: 0.3 cm; Reflux: 0 ms Mid Thigh: 0.2 cm; Reflux: 0 ms SMALL SAPHENOUS VEIN: Drainage:Thigh Extension Saphenopopliteal Junction: 0.2 cm; Reflux: 0 ms Mid calf: 0.1 cm; Reflux: 0 ms Distal: 0.1 cm; Reflux: 0 ms VEIN OF GIACOMINI: Size: 0.1 cm Reflux: 0 ms PERFORATORS: Location: Greater saphenous vein, mid thigh Size: 0.2 cm Reflux: 0 ms Location: Greater saphenous vein, distal calf Size: 0.3 cm Reflux: 0 ms VARICOSITIES > 3mm: Location: Great saphenous vein, proximal thigh Size: 0.3 cm Reflux: 0 ms 3. DEEP VENOUS ULTRASOUND OF THE LEFT LOWER EXTREMITY: Common Femoral Vein: Compressible, normal respiratory variation and augmented flow. Femoral Vein: Compressible, normal color flow and augmentation. Popliteal Vein: Compressible, normal augmentation. Deep Reflux: There is no evidence of reflux in the deep system in either the common femoral vein, superficial femoral or the popliteal vein. 4. SUPERFICIAL ULTRASOUND WITH DOPPLER OF LEFT LOWER EXTREMITY: GREAT SAPHENOUS VEIN: Saphenofemoral Junction: 0.5 cm; Reflux: 0 ms Proximal Thigh: 4 cm; Reflux: 0 ms Mid Thigh: 0.2 cm; Reflux: 0 ms Distal Thigh: 0.2 cm; Reflux: 0 ms At Knee: 0.2 cm; Reflux: 0 ms Below Knee/Proximl calf: 0.1 cm; Reflux: 0 ms Mid Calf: 0.2 cm; Reflux: 0 ms Distal Calf/Ankle: 0.1 cm; Reflux: 0 ms Lateral accessory GREAT SAPHENOUS VEIN: Saphenofemoral Junction: 0.3 cm; Reflux: 0 ms Mid Thigh: 0.2 cm; Reflux: 0 ms SMALL SAPHENOUS VEIN: Drainage: Thigh extension Saphenopopliteal Junction: 0.2 cm; Reflux: 0 ms Mid calf: 0.1 cm; Reflux: 0 ms Distal calf: 0.1 cm; Reflux: 0 ms VEIN OF GIACOMINI: Size: NA Reflux: NA PERFORATORS: None imaged VARICOSITIES > 3mm: Location: None Imaged US/US venous duplex LE BI IMPRESSION: Right: No venous reflux is demonstrated. Left: No venous reflux is demonstrated. Electronically signed by: Antonio Diamond MD 04/19/2025 02:34 PM EDT
--- OUTSIDE RECORDS SUMMARY | 2025-04-19 15:21 | XMS_ITS | Clinical Summary ---
Author Organization [facility] Address [address] [place] [phone] Phone Care Team Providers Care Mechanical Manufacturing Technician Name Role Phone Henrique Soler MD [...] 06/09/2022 Depression Screening 07/07/2024 COVID-19 Vaccine ( season) 2025 Influenza Vaccine (#1) 2025 , [...] AM [facility] Triglycerides 80 0 - 150 mg/dL LAB CHEMISTRY METHOD 11/12/2024 8:03 AM [facility] HDL 71 >=40 mg/dL LAB CHEMISTRY METHOD 11/12/2024 8:03 AM [facility] LDL Calculated 116(H) 0 - 100 mg/dL LAB CHEMISTRY METHOD 11/12/2024 8:03 AM [facility] VLDL Cholesterol Randy 16 mg/dL LAB CHEMISTRY METHOD 11/12/2024 8:03 AM [facility] Non HDL Chol. (LDL+VLDL) 132 <145 mg/dL LAB CHEMISTRY METHOD 11/12/2024 8:03 AM [facility] Chol/HDL Ratio 2.9 0.0 - 4.4 LAB CHEMISTRY METHOD 11/12/2024 8:03 AM [facility] Blood Venous blood specimen / Unknown Venipuncture / Unknown 11/12/2024 6:15 AM EDT 11/12/2024 6:58 AM EDT Jojo [facility] LAB BLOOD ORDERABLES [facility] [address] [place] [address], * SCR MAMMO BI INCL CAD (09/02/2017 [...] Most Recently Relevant to Health Maintenance [place] [address] [place] [address] MEDICARE Member Subscriber Plan / Payer (Ef fective 2022-Present) Name:JANNETTE MCQUEENA Relation to Subscriber:Self Name:Richar Sabrina Payer ID:[id number] Group ID:[id number] Type:Not on file Address: [place] [address] [place] [phone] Advance Directives Documents on File Type Date Recorded 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 Care Teams Mechanical Manufacturing Technician Relationship Specialty Start Date End Date Henrique Soler MD [address] [place] [address] [address] ABIGAIL Walsh PCP - General Internal Medicine 06/18/14
== END 2025-04-19 12:44 | disposition home or self-care (01) ==
LOC: HO.US 12:43
PROVIDERS: PCP Internal Medicine; Visit Provider Surgery Vascular Surgery
DX: I83.11 Varicose veins of right lower extremity with inflammation (principal)
CPT/HCPCS: 93970

== ENCOUNTER → 2025-04-19 12:46 | Outpatient (BNV) | payer OTHER, SELFPAY | PROVIDERS: PCP Internal Medicine; Visit Provider Radiology Diagnostic Radiology | DX: I83.11 Varicose veins of right lower extremity with inflammation (principal) | CPT/HCPCS: 93970 ==

== ENCOUNTER 2025-05-13 14:30 | Outpatient (AMB) | payer OTHER, SELFPAY ==
--- NOTE | 2025-05-13 14:35 | A.OFFPC_ITS ---
Vital Signs 05/13/25 14:38 Height 5 ft 6 in Weight 232 lb 4 oz BMI 37.5 BP 124/60 Blood Pressure Location Rt brachial Position Sitting Temp 97.1 F Temp Source Temporal Artery Scan Intake Visit Reasons: fall/dizziness Intake Note: Patient is here to follow-up after a visit the emergency department at [facility] on 05/08/25 Talent Sourcing Specialist Required: Yes Talent Sourcing Specialist Language: Management Department Chair Name: Kalyani (communications operator) Information Interpreted: non-clinical & clinical (pt decline software sales consultant service prefer communications operator to translate) Home Stereo Equipment Installer: Present Accompanied by: communications operator Allergies codeine (Tylenol-Codeine #3) Allergy (Intermediate, Verified 05/13/25 14:37) Rash morphine Allergy (Intermediate, Verified 05/13/25 14:37) rash and itching nalbuphine (From Nubain) Allergy (Intermediate, Verified 05/13/25 14:37) Rash oxycodone (Percocet) Allergy (Intermediate, Verified 05/13/25 14:37) Rash propoxyphene (From Darvocet-N 100) Allergy (Intermediate, Verified 05/13/25 14:37) Rash tramadol (Ultram) Allergy (Intermediate, Verified 05/13/25 14:37) Rash ibuprofen (From Motrin) Allergy (Mild, Verified 05/13/25 14:37) RASH montelukast (Singulair) Allergy (Unknown, Verified 05/13/25 14:37) Unknown Medication List - Last Reconciled 05/13/25 by Althea La NP [ADULT PULL-UPS -- MEDIUM SIZE As directed] [BED PADS As directed] bupropion HCl SR 200 mg PO BID buspirone 10 mg PO BID 30 days celecoxib (Celebrex) 200 mg PO BID 30 days cholecalciferol (vitamin D3) 50 mcg PO DAILY 90 days cyanocobalamin (vitamin B-12) 1,000 mcg PO DAILY 90 days cyclobenzaprine 5 mg PO BEDTIME divalproex 500 mg PO BID 30 days duloxetine 30 mg PO BID 30 days ergocalciferol (vitamin D2) (Vitamin D2) 1,250 mcg PO QWEEK [Heating Pad As directed] heating pads As directed [INCONTINENCE PADS Use as directed] [LEFT KNEE BRACE As directed] lemborexant (Dayvigo) mg PO DAILY lidocaine 5% (DermacinRx Lidocan) 1 patch topical DAILY loratadine 10 mg PO DAILY PRN 30 days lorazepam mg PO nortriptyline 25 mg PO BID 30 days pantoprazole 40 mg PO DAILY pregabalin 150 mg PO TID 30 days [QUAD CANE As directed] [QUAD CANE (lightweight) As directed] [RAISED TOILET SEAT As directed] [RIGHT KNEE BRACE As directed] [RIGHT THUMB SPLINT As directed] [RUBBER HANDLE/SLOT SHIFT MANAGER for 4-pronged aluminum cane As directed] [RUBBER TIPS FOR QUAD CANE As directed] [Semi electric hospital bed with 1/2 bed rails As directed Length of need: indefinite] trazodone 50 mg PO BEDTIME PRN 30 days Ventolin HFA 90 mcg/actuation (albuterol sulfate) 2 puffs inhalation Q4-6H PRN NS [WRIST BRACE (right wrist) - MEDIUM As directed] Tobacco use date assessed: 05/13/25 Fall risk assessment: 2 + Falls in past year Last assessed Fall Risk: 05/13/25 Dental Screening Dental Screen Date: 04/06/25 HPI HPI Comments History of Present Illness Details 69 y/o female [facility] on 05/08 for evaluation and treatment of lumbar paraspinal muscle spasm and pain. She reports multiple falls from her bed prior to admission. States she recently obtained a hospital bed to help prevent further incidents. Patient was unable to nut picker prescribed medications (Lidocaine patches and Robaxin) due to insurance coverage issues?was told a prior authorization is required. Requests referral to pain management clinic for ongoing back pain. [facility] Medical History Folliculitis Pure hypercholesterolemia Allergic rhinitis Insomnia Multiple joint pain GERD without esophagitis Vitamin D deficiency Lumbar spondylosis Obesity (BMI 30-39.9) Migraine Primary osteoarthritis of both knees Urinary incontinence Rotator cuff tear, left Depression Asthma Fibromyalgia Non-toxic multinodular goiter Anxiety Surgical History Status post rotator cuff surgery S/P rotator cuff repair Status post right rotator cuff repair (~07/26/18) History of hysterectomy History of cholecystectomy History of laminectomy (~2009) Family History Father Diabetes Mother Medical history unknown Social History Household Members: None Housing: Apartment Do you presently have visiting nurse or other home services: No Alcohol intake: former Patient Tobacco Use Status: Never used Tobacco e-Cigarette/Vaping Use: Never Used Second Hand Smoke Exposure: No service: No Current occupational status: disabled Cognitive needs: Yes (cane) Hearing needs: No Vision needs: Yes (glasses) Questionnaire Thrive Questionnaire Date Thrive assessed: 12/31/24 I am a: Patient What is your living situation today?: I have a steady place to live Within the past 12 months, did the food you bought not last and you didn't have the money to get more?: Often true Within the past 12 months, did you worry whether your food would run out before you got money to buy more?: Often true Do you have trouble paying for medicines?: No Do you have trouble getting transportation to medical appointments?: No Do you have trouble paying your heating and electricity bill?: No Do you have trouble taking care of your child, family member or friend?: No Do you have trouble with day-to-day activities such as bathing, preparing meals, shopping, managing finances, etc.?: Yes Are you currently unemployed and looking for a job?: Yes Are you interested in more education?: No Please select the resources that you would like help with: Food Currently or been in a relationship where the following occur: No concerns reported THRIVE Score: 2 FLACO-7 AMB Questionnaire FLACO-7 Date FLACO - 7 assessed: 01/24/25 Source: Developed by Drs. Lang Pacheco, Kelsey Lund, Filemon Grewal and colleagues, with an educational juvenal from [employer]. Physical exam (Primary Care) Vital Signs: Last Vital Signs Temp 97.1 F 05/13/25 14:38 BP 124/60 05/13/25 14:38 BMI result Body Mass Index 37.5 Tobacco/Smoking Status: Tobacco use Status Tobacco use date assessed 05/13/25 05/13/25 14:42 Patient Tobacco Use Status Never used Tobacco 05/13/25 14:42 Tobacco use type 11/30/24 12:25 e-Cigarette/Vaping Use Never Used 05/13/25 14:42 Thrive Assessment: Date of Thrive Assessment Date Thrive assessed 12/31/24 05/13/25 14:42 Currently or been in a relationship where the following occur: No concerns reported Coding Level of Care Code Est Pt Level 4 (27844) Diagnoses Failed back syndrome of lumbar spine M96.1 Time Spent (min) 20 Assessment & Plan Assessment & Plan (1) Failed back syndrome of lumbar spine: Onset Date: ~04/2021 Code(s): M96.1 - Postlaminectomy syndrome, not elsewhere classified Category: Medical Plan: Lumbar paraspinal muscle spasm and pain, subacute Multiple falls (improving since acquiring hospital bed). Refer to Pain Management Clinic for further evaluation and management. Reinforce fall precautions and safe use of hospital bed. Encourage gentle stretching and use of warm compresses as tolerated. Advised Patient that sometimes Insurance will still deny coverage even with prior authorization for Lidocaine patches and Robaxin. Advised to pay out pocket or call the insurance. Orders: Referrals Pain Management Referral M96.1 - Postlaminectomy syndrome, not elsewhere cla ssified Medications: New cyclobenzaprine 5 mg PO BEDTIME 20 tabs 0RF M96.1 - Postlaminectomy syndrome, not elsewhere classified lidocaine 5% (DermacinRx Lidocan) leave on most painful area for up to 12 hrs 1 patch topical DAILY 30 ea 0RF M96.1 - Postlaminectomy syndrome, not elsewhere classified
[2025-05-13 14:38] VITALS: BP 124/60; TEMP 36.2; BMI 37.5
--- OUTSIDE RECORDS SUMMARY | 2025-05-13 16:07 | XMS_ITS | Data Portability ---
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 I have reviewed and agree with the Assessment and Plan as documented by the Family Manager. Patient given the opportunity to ask questions. Our service contacted for an assessment of: Urinary symptoms As per above, patient with approximately 24 hours of dysuria, frequency. No history of frequent urinary tract infections. Denies fever, chills, abdominal pain, back pain, flank pain. Per furnace door tender on the scene, Vital signs are [...] Assessment and Plan as documented by the Family Manager. Patient given the opportunity to ask questions. [...] she was out of the medication. Per furnace door tender on the scene, Vital signs are stable patient is afebrile. Patient is nontoxic and a good historian of events. Per furnace door tender on the scene she has a [...] . Lab urinalys is, dipstick 2023 024 [facility], [address] [place] [address], [id number] 4 09:18:24 culture, urine 2023 024 [email or web address] [facility] (Centralized Electronic Ordering - All Locations), Patient Can Go To The Location Of Their Choice, [id number] 4 09:55:32 urinalys is, dipstick 2023 024 [facility], [address] [place] [address], [phone] 09:18:51 Referral None recorded . Procedures None recorded . Surgeries None recorded . Imaging None recorded . Medication Orders meclizin e 25 mg tablet 2024 025 [email or web address] [facility] #[id number], [address] [place], [address], 5 18:19:50 meclizin e 25 mg tablet 2024 025 [id number], [address], [place], [id number], 5 18:19:56 meclizin e 25 mg tablet 2024 025 [email or web address] [facility] #[id number], [address] [place], [address], 5 18:23:15 levoflox acin 500 mg tablet 2023 024 [facility], [address] [place], [address], 4 21:23:53 lactated Ringers intraven ous solution 2022 023 [email or web address] [facility], [address] [place], [address], 3 12:22:06 Patient TargetsNo targets recorded. Patient InstructionsNo instructions recorded. Reason for Referral None Reported. Results Created Date Observation Date Name Description Value Unit Range Abnormal Flag Note LastModifiedBy Organization Detail LastModifiedTime 02/24/2002/23/2023 BMP, serum or plasm a BUN 19 Not Available [facility] [address], [id number] 02/23/2023 19:45:16 02/24/20 23 02/23/2023 BMP, serum or plasm a CI- 99 Not Available [facility] [address], [address] 02/23/2023 19:45:16 02/24/20 23 02/23/2023 BMP, serum or plasm a CRE 0.7 Not Available [facility] [address], [address] [place] [address] 02/23/2023 19:45:16 02/24/20 23 02/23/2023 BMP, serum or plasm a GLU 162 Not Available [facility] [address], [address] [place] [address] 02/23/2023 19:45:16 02/24/20 23 02/23/2023 BMP, serum or plasm a K+ 4.2 Not Available [facility] [address], [address] [place] [address] 02/23/2023 19:45:16 02/24/20 23 02/23/2023 BMP, serum or plasm a Na+ 139 Not Available [facility] [address], [address] [place] [address] 02/23/2023 19:45:16 02/24/20 23 02/23/2023 BMP, serum or plasm a tCO2 20 Not Available [facility] [address], [address] [place] [address] 02/23/2023 19:45:16 03/01/20 23 03/01/2023 BMP, serum or plasm a BUN 23 Not Available [facility] [address], [address] [place] [address] 03/01/2023 13:31:01 03/01/20 23 03/01/2023 BMP, serum or plasm a CRE 0.7 Not Available [facility] [address], [address] [place] [address] 03/01/2023 13:31:01 03/01/20 23 03/01/2023 BMP, serum or plasm a GLU 131 Not Available [facility] [address], [id number] 03/01/2023 13:31:01 03/01/20 23 03/01/2023 BMP, serum or plasm a K+ 4.6 Not Available [facility] [address], [address] [place] [address] 03/01/2023 13:31:01 03/01/20 23 03/01/2023 BMP, serum or plasm a Na+ 140 Not Available [facility] [address], [address] [place] [address] 03/01/2023 13:31:01 03/01/20 23 03/01/2023 BMP, serum or plasm a tCO2 28 Not Available [facility] [address], [place], [address] 03/01/2023 13:31:01 Result Notes None recorded. Medical [...] Address Organization Details Last Updated DateTime 4 81804.6 g 152.4 cm 98.4 [degF] 96 % 96 % 14 /min 80 /min 124/80 mm[Hg] Not Available [employer] 4 21:21:02 Date Recorded Respiratory rate Body temperature Heart rate Oxygen saturation Oxygen saturation in Arterial blood by Pulse oximetry Systolic And Diastolic Provider Name and Address Organization Details Last Updated DateTime 5 18 /min 97.7 [degF] 71 /min 97 % 97 % 129/75 mm[Hg] Not Available [employer] 5 18:20:58 Date Recorded Oxygen saturation Oxygen saturation in Arterial blood by Pulse oximetry Respiratory rate Heart rate Body temperature Systolic And Diastolic Provider Name and Address Organization Details Last Updated DateTime 5 95 % 95 % 16 /min 83 /min 98 [degF] 138/98 mm[Hg] Not Available [employer] 5 18:17:10 Date Recorded Body temperature Respiratory rate Heart rate Oxygen saturation Oxygen saturation in Arterial blood by Pulse oximetry Systolic And Diastolic Provider Name and Address Organization Details Last Updated DateTime 3 97.9 [degF] 16 /min 99 /min 97 % 97 % 128/78 mm[Hg] Not Available [employer] 3 11:48:04 Date Recorded Body temperature Heart [...] Diagnosis SNOMED-CT Code Diagnosis ICD10 Code Diagnosis IMO Codes Diagnosis Note [id number] Kesha Beck MD Main - [address] [address] 02/21/2023 15:44:06 02/22/2023 15:35:21 Dehydration [id number] E86.0 [id number] Sajan Rueda MD [facility] - [address] [phone] 02/23/2023 18:33:42 02/24/2023 07:20:36 Dizziness [id number] R42 As noted, we were called to see this patient regarding concerns of dizziness/ unsteadine ss. Evaluation in the field was performed by my furnace door tender colleague, as noted above, I provided [...] uncertain etiology, ddx includes hypovolemi a, meds, SENIOR PRODUCT ANALYST or PNS process, including focal lesions, neuropathy [...] particular ly falling, confusion, face/arm/l eg weakness. [id number] Madelyn Robertson MD [facility] - [address] [phone] 03/01/2023 13:28:34 03/04/2023 11:06:40 Acute gastroenteritis 45043780 K52.9 Evaluation in the field was performed by my furnace door tender colleague, as noted above, I provided [...] shortness of breath, cough, chest pain, fever. [id number] Carmen Pemberton MD Main - [address] [phone] 03/02/2023 11:45:43 03/04/2023 11:11:38 Acute gastroenteritis [id number] K52.9 67 yo w/ gastroente ritis, seen [...] on Friday morning. Questions answered; pt and furnace door tender agreeable with plan [id number] Jose Hawk MD Main - [facility] [address] [place] [phone] 04/06/2023 15:42:46 04/07/2023 08:17:20 Syncope and collapse [id number] R55 This 67-year-ol d female has had two episodes of syncope without warning in the past 24 hours. She did hit her head and now complains of head and neck pain. I recommende d that she go to the ER for further evaluation and treatment. The patient resisted this recommenda tion, so I instructed the furnace door tender to try and change her mind. [id number] Alie Dillard MD Main - [facility] [address] [place] [phone] 10/22/2023 21:20:49 10/23/2023 11:15:53 Urinary symptoms [id number] R39.9 [id number] Alie Dillard MD [facility] - [facility] [address] [place] [phone] 11/16/2024 18:20:56 11/16/2024 21:08:15 Dizziness [id number] R42 [id number] Madelyn Robertson MD [facility] - [facility] [address] [place] [phone] 11/20/2024 18:17:08 11/21/2024 18:14:07 Vertigo [id number] R42 [id number] Evaluation in the field was performed by my furnace door tender colleague, as noted above, I provided [...] Maradiaga Member ID Guarantor Name 11/16/2024 1 [facility] - DOS ON OR AFTER 2022 - DUAL ELIGIBLE - CARE HOME OPTIONS AND ONE CARE (MEDICARE REPLACEMENT/ADV ANTAGE - HMO) Sabrina Mcqueen [id number] Sabrina Mcqueen Notes Date Note Type Note [...] POC bloodwork drawn, unremarkable. Sent results to [facility], [facility] contacted [facility] ordered 1L of NS and 4MG of zofran IVP. [facility] sent prescription for Zofran to pt's pharmacy. Pt educated on s/s warranting a 911 call/trip to the hospital. Pt advised to F/U with PCP or [facility] if symptoms persist or worsen. Shreyas TORRES ...................... ...................... ...................... ...................... ...................... ...................... ......... Family Manager Note From Man Bolton: Dispatched to the [...] CAOx4, airway open and patent. 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 Able to speak in full sentences, -JVD, -HEENT, pupils PERRL, and soft non tender/distended, skin PWD with good turgid, lung sounds clear an equal bilaterally. [facility] consulted. IV established. BMP conducted, 1L LR given. Red flags discussed. All times are approx. ...................... ...................... ...................... ...................... ...................... ...................... ......... Disposition: Fulfilled aCrmen Pemberton MD [address] [facility],[address], [place], [address], [employer] 03/03/2023 12:22:18 04/06/2023 text/html ROS as noted in the HPI [facility] Nursing Assessment: Chief Complaints: Syncope/Dizziness/Ligh theadedness, Falls PMH: COPD/Asthma Allergies: Unknown Comments: + dizziness since yesterday. Fall x2 yesterday and today. Unsteady gait due to dizziness. Unknown LOC. Possible head strike. c/o left wrist pain. Advised ED for further evaluation. Member declined ED after education but will accept [facility] visit first. Red flags reviewed. Instructed to call 911 for worsening symptoms. Jose Hawk MD [address] [place] [address],[address], [place], [address], [employer] 04/06/2023 15:45:49 10/22/2023 text/html [facility] Nurse Triage Notes (Morenita Dawson): Chief Complaints: Pain PMH: COPD/Asthma Allergies: Unknown Comments: Uruguayan speaking member. 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 Verified name//address. Member reports left flank pain that is getting worse. Reports multiple falls. Last fall on Friday. Member states she was evaluated s/p falls. Denies fevers. Denies urinary symptoms. Denies chest pain or shortness of breath. Advised member to call 911 with worsening signs/symptoms. ...................... ...................... ...................... ...................... ...................... ...................... ......... Family Manager Note From Costa Nielsen: Patient conscious alert [...] sample culture to [facility] UA values to [facility]. [facility] orders levafloxacin 500 mg PO and will prescribe more to patients local pharmacy. Red flags and patient education discussed. Consent, signed and uploaded times two ...................... ...................... ...................... ...................... ...................... ...................... ......... Disposition: Fulfilled Alie Dillard MD [address] [place] [address],[address], [place], [phone], [facility] 10/22/2023 21:25:11 11/16/2024 text/html [facility] Nurse Triage Notes (Morenita Dawson): Reason For Request: Pt is not feeling well, very tired and was discharged from hospital on the 10th Denies: Unable to void greater than 5 [...] (GERD), Fibromyalgia, Depression, Other PMH Reviewed at 11/16/2024 16:55 Allergies Reviewed at 11/16/2024:55 Comments: 68 y.o female complains of Dizziness, Weakness Uruguayan speaking patient reporting dizziness when turning head, [...] ...................... ...................... ...................... ...................... ...................... ...................... ......... Family Manager Note From Bonnie Morales: Sent to a [...] unremarkable; Extremities: unremarkable; Skin: pink, warm, dry; [facility] consulted and orders Meclizine 25mg PO. Meclizine 25mg PO administered. Pt advised to follow up with PCP again tomorrow. Red flags discussed. Pt has no further questions. [facility] Medication Orders: meclizine 25 mg tablet: Administered ...................... ...................... ...................... ...................... ...................... ...................... ......... [facility] Consulted: Alie Dillard ...................... ...................... ...................... ...................... ...................... ...................... ......... Disposition: Fulfilled Alie Dillard MD [address] [facility],[address], [place], [address], [employer] 11/16/2024 19:43:20 11/20/2024 text/html [facility] Nurse Triage [...] ...................... ...................... ...................... ...................... ...................... ...................... ......... Family Manager Note From Chai Nunez: Encountered patient, supine in bed and conscious. Patient reports she has a history of vertigo for which she is treated with meclizine, was admitted from 11/11/24-11/13/24 at [facility] for said vertigo. Patient reports she [...] Extremity is free of trauma and edema. [facility] contacted: recommends patient be transported to the emergency room since she lives by herself and is suffering falls due to her dizziness, despite taking meclizine as prescribed. [facility] additionally states if patient is refusing transport [...] ...................... ...................... ...................... ...................... ...................... ...................... ......... [facility] Consulted: Madelyn Robertson ...................... ...................... ...................... ...................... ...................... ...................... ......... Disposition: Fulfilled Madelyn Robertson MD [address] [place] [address],[address], [place], [address], [employer] 11/20/2024 21:14:56 OBGyn Episode No OBEpisode recorded.
--- OUTSIDE RECORDS SUMMARY | 2025-05-13 16:07 | XMS_ITS | Data Portability ---
Author Organization [facility], Main Office Address [address] [place] [address] Care Team Providers Care Die Presser Name Role Phone BLAZE PATTEN Primary Care Provider [facility] 2ND FLO[facility] OTHER Assessment Encounter Date Assessment Date Assessment LastModified by Organization Details LastModified Time 11/22/2020 11/22/2020 11/21/20 WBC 5.5, Hgb 13, Hct 40.7, Plt 278, Na 141, K 4.6, BUN 11, El Teacher 0.72, karri 8.8 11/15/20 WBC 5.4, Hgb 13.2, Hct 41.3, Plt 291, Na 138, K 4.3, BUN 17, El Teacher 1.06, karri 8.6, tot prot 6.9, alb 3.2, tot bili 0.2, AST 19, ALT 24, alk phos 125 [email or web address] Not available 11/22/2020 10:14:01 11/20/2023 11/20/2023 11/15/20 WBC 5.4, Hgb 13.2, Hct 41.3, Plt 291, Na 138, K 4.3, BUN 17, El Teacher 1.06, karri 8.6, tot prot 6.9, alb 3.2, tot bili 0.2, AST 19, ALT 24, alk phos 125 Not available 11/20/2023 08:21:55 11/21/2023 11/21/2023 11/15/20 WBC 5.4, Hgb 13.2, Hct 41.3, Plt 291, Na 138, K 4.3, BUN 17, El Teacher 1.06, karri 8.6, tot prot 6.9, alb [...] and Address Organization Details Recorded Time Falls [id number] Active 2020 LYLE SANTANA [address], [address], [place], [address], [facility] 1 09:16:33 Injury of rotator cuff 274658836 Active 2020 LYLE SANTANA [address], [address], [place], [address], [facility] 1 09:17:03 Anxiety 65795082 Active 2020 LYLE SANTANA [address], [address], [place], [address], [facility] 1 09:19:26 Asthma 655077418 Active 2020 LYLE SANTANA [address], [address], [place], [address], [facility] 1 09:19:37 Depressive disorder 76066193 Active 2020 LYLE SANTANA [address], [address], [place], [address], [facility] 1 09:19:46 Fibromyalgia 854216082 Active 2020 LYLE SANTANA [address], [address], [place], [address], [facility] 1 09:19:57 Chronic low back pain 518117318 Active 2020 LYLE SANTANA [address], [address], [place], [address], [place] [facility] 1 09:23:26 Non-toxic multinodular goiter 59291428 Active 2020 LYLE SANTANA [address], [address], [place], [address], [facility] 1 09:31:03 Gastroesophage al reflux disease without esophagitis 956800320 Active 2020 LYLE SANTANA [address], [address], [place], [address], [facility] 1 17:45:05 Vitamin D deficiency 19405004 Active 2020 LYLE SANTANA [address], [place], [address], [facility] 1 17:50:09 Obesity 632129829 Active 2020 Danny Mcarthur MD [address], [place], [address], [facility] 1 10:03:21 Vertigo 929487924 Active 2020 LYLE SANTANA [address], [address], [place], [address], [facility] 22:04:34 Osteoarthritis of knee 724751389 Active 2020 LYLE SANTANA [address], [place], [address], [facility] 1 09:11:19 Asthenia 95016081 Active 2023 Araceli Mendoza NP [address], [address], [place], [address], [facility] 4 08:59:56 Problem Notes None recorded. Procedures Surgical History Date Name Laterality Status Provider Name and Address Organization Details Recorded Time 07/18/19 21 complete repair of rotator cuff completed LYLE SANTANA [address], [address], [place], [address], [facility] 09/15/2020 17:42:10 cholecystectomy completed SIMRAN HOUSTON, PATTERNMAKER HELPER [address], [address], [place], [address], [facility] 09/15/2020 09:26:25 Hysterectomy completed SIMRAN HOUSTON, PATTERNMAKER HELPER [address], [address], [place], [address], [facility] 09/15/2020 09:28:09 laminectomy completed SIMRAN HOUSTON, PATTERNMAKER HELPER [address], [place], [address], [facility] 09/15/2020 09:29:37 Imaging Results None recorded. Procedure Notes None recorded. Medical Equipment None Reported. Allergies Allergen ID Allergen Name Allergen Category Reaction Reaction Severity Criticality Documentation Date Start Date Code Code System Note Provider Name and Address Organization Details Recorded Time 85729 codeine medicatio n rash Not available Not available 09/15/2020 2670 RxNorm SIMRAN HOUSTON, PATTERNMAKER HELPER [address] [facility], [address], [place], [address], [facility] 09:07:10 92258 morphine medicatio n rash Not available Not available 09/15/2020 7052 RxNorm SIMRAN HOUSTON, PATTERNMAKER HELPER [address] [facility], [address], [place], [address], [facility] 09:07:28 46390 Nubain medicatio n rash Not available Not available 09/15/2020 7550 RxNorm SIMRAN HOUSTON, PATTERNMAKER HELPER [address] [facility], [address], [place], [address], [facility] 09:07:44 77494 oxycodone medicatio n rash Not available Not available 09/15/2020 7804 RxNorm SIMRAN HOUSTON, PATTERNMAKER HELPER [address], [place], [address], [facility] 09:08:42 83862 propoxyph leonel medicatio n rash Not available Not available 09/15/2020 8785 RxNorm SIMRAN HOUSTON, PATTERNMAKER HELPER [address] [facility], [address], [place], [address], [facility] 1 09:09:13 89267 Ultram medicatio n rash Not available Not available 09/15/2020 15977 6 RxNorm SIMRAN HOUSTON, PATTERNMAKER HELPER [address] [facility], [address], [place], [address], [facility] 1 09:09:31 25595 ibuprofen medicatio n rash Not available Not available 09/15/2020 5640 RxNorm SIMRAN HOUSTON, PATTERNMAKER HELPER [address] [facility], [address], [place], [address], [facility] 1 09:09:48 22524 Singulair medicatio n Not available Not available Not available 09/15/2020 93042 9 RxNorm SIMRAN HOUSTON, PATTERNMAKER HELPER [address] [facility], [address], [place], [address], [facility] 1 09:09:[address] [facility] [address] medicatio n Not available Not available unabletoasse 11/20/2023 03815 RxNorm Araceli Mendoza NP [address] [facility], [address], [place], [address], [facility] 4 08:27:44 61374 acetamino phen medicatio n other Not available unabletoasse 11/20/2023 161 RxNorm unkno wn Araceli Mendoza NP [address] [facility], [address], [place], [address], [facility] 4 08:28:06 34913 [employer] philip medicatio n other Not available unabletoasse 11/20/2023 3423 RxNorm Araceli Mendoza NP [address] [facility], [address], [place], [address], [facility] 4 08:28:54 Vitals Date Recorded Body weight Heart rate Respiratory rate Body temperature Oxygen saturation Oxygen saturation in Arterial blood by Pulse oximetry Systolic And Diastolic Provider Name and Address Organization Details Last Updated DateTime 4 50594.4 g 64 /min 18 /min 96 [degF] 95 % 95 % 113/72 mm[Hg] Araceli Mendoza NP [address] [facility], [facility] [address], [place], [address], [facility] 4 08:22:52 Date Recorded Systolic And Diastolic Provider Name and Address Organization Details Last Updated DateTime 11/20/2020 133/69 mm[Hg] Danny Mcarthur MD [address] [facility], [address], [place], [address], [facility] 11/20/2020 12:24:49 Date Recorded Body weight Body mass index (BMI) Body height Heart rate Respiratory rate Body temperature Oxygen saturation Oxygen saturation in Arterial blood by Pulse oximetry Systolic And Diastolic Provider Name and Address Organization Details Last Updated DateTime 4 83256.1 9 g 34 kg/m2 167.64 cm 80 /min 18 /min 97.5 [degF] 93 % 93 % 124/78 mm[Hg] Jane Galvan MD [address] [facility], [facility] [address], [place], [address], [facility] 4 21:22:27 Date Recorded Oxygen saturation Oxygen saturation in Arterial blood by Pulse oximetry Body temperature Body weight Provider Name and Address Organization Details Last Updated DateTime 11/21/2020 99 % 99 % 97.8 [degF] 379152. 94 g LYLE SANTANA [address] [facility], [facility] [address], [place], [address], [employer] [facility] 1 19:41:18 Date Recorded Heart rate Respiratory rate Body temperature Oxygen saturation Oxygen saturation in Arterial blood by Pulse oximetry Provider Name and Address Organization Details Last Updated DateTime 1 69 /min 15 /min 98.2 [degF] 99 % 99 % LYLE SANTANA [address] [facility], [facility] [address], [place], [address], [employer] [facility] 1 10:24:20 Social History Question Answer Notes LastModified by Organizat ion Details LastModified Time Tobacco Smoking Status Never Smoker LYLE SANTANA [address] [facility], [facility] [address], [place], [address], [facility] 09/15/2020 09:37:52 Do You Have An Advance Directive? Yes DNR/DNI/DNV- no Non Invasive Ventilation/ may Transfer To Hospital-no Dialysis, Nutrition But May Use Hydration Information not available 11/15/2020 How Much Tobacco Do You Chew? None Information not available 09/15/2020 What Is Your Code Status? DNR/DNI Information not available 11/20/2023 Where Do You Live? Apartment Alone Information not available 11/21/2023 Legal Guardian? No Informati on not available 11/21/2023 Do You Have A Medical Power Of Medical Registrar? Yes Information not available 11/21/2023 What Was The Date Of Your Most Recent Tobacco Screening? 11/20/2023 Information not available 11/20/2023 Do You Have An Out Of Hospital DNR? Yes Information not available 11/20/2023 What Is Your Relationship Status? Information not available 11/21/2023 How Much Tobacco Do You Smoke? No Information not available 09/15/2020 Has Tobacco Cessation Counseling Been Provided? No N/a As Pt Is A Non-smoker Information not available 11/21/2023 Sex: Female Functional Status Question Answer Note LastModified by Organizat ion Details LastModified Time Do you use any illicit or recreational drugs? No Information not available 11/21/2023 Do you or have you ever used any other forms of tobacco or nicotine? No Information not available 11/21/2023 What is your level of alcohol consumption? None Information not available 09/15/2020 Do you or have you ever used smokeless tobacco? Never used smokeless tobacco Information not available 09/15/2020 Do you or have you ever used e-cigarettes or vape? Never used electronic cigarettes Information not available 09/15/2020 Mental Status None recorded. Family History Relationship Description Onset Age of this Age Resolved Age Notes LastModified by Organization Details LastModified Time Father Diabetes mellitus [email or web address] Not available 2020 09:45:35 Medical History No medical history recorded. Gynecological HistoryNo gynecological history recorded. Obstetrics History GPAL:G 0 P 0 0 0 0 Immunizations Vaccine Type Date Status Note Provider Víctor roberts and Address Organization Details Recorded Time Tdap 6 completed [facility] 11/20/2023 15:57:00 Tdap 7 completed [facility] 11/20/2023 15:57:07 Pneumococcal conjugate PCV 13 1 completed [facility] 11/20/2023 15:57:56 pneumococcal polysaccharide PPV23 5 completed [facility] 11/20/2023 15:58:14 influenza, unspecified formulation 2 completed [facility] 11/20/2023 15:58:35 Past Encounters Encounter ID Performer Location Encounter Start Date Encounter Closed Date Diagnosis/Indication Diagnosis SNOMED-CT Code Diagnosis ICD10 Code Diagnosis IMO Codes Diagnosis Note [id number] LYLE SANTANA [address] [address] 09/15/2020 09:05:35 09/19/2020 11:31:05 Falls 629726934 R29.6 PT/OT eval and treatmonit or for safety Injury of rotator cuff 380424687 S46.092S 09/12/20 revision-i nitial surgery 07/18/20wea r sling at all timespendu lums tidno liftingelb ow and wrist ROM okmeloxica m 15 mg qdtizanidi ne 4 mg tidadded methocarba mol 750 mg tid prn as she states this has worked better beforefoll ow up with ortho in 2 weeks (Dr Maharaj) Anxiety 55132177 F41.1 ativan 0.5 mg tid prndiscuss ed risk vs benefit of ativan with ptmonitor anxietypsy ch eval and treat prn Asthma 509924396 J45.20 loratadine 10 mg qdalb hfa 90 mcg 2 puffs q 6 hrs prnmonitor for symptoms Depressive disorder 0348 9007 F32.89 citalopram 20 mg qdbupropio n SR 200 mg bid discussed risk vs benefit of citalopram and bupropion with ptmonitor mood Fibromyalgia 267456839 M 79.7 lyrica 150 mg tidnortrip tyline 25 mg bid discussed risk vs benefit of lyrica and nortriptyl ine with ptmonitor pain Chronic low back pain 27 0296324 M54.5 see above Non-toxic multinodular goiter 67227141 E04.2 noted in historymon itor Gastroesop hageal reflux disease without esophagitis 195757784 K21.9 pantoprazo le 40 mg qdmonitor for symptoms Vitamin D deficiency 347 64508 E56.8 vitamin D2 71541 units q weekmonito r levels [id number] LYLE SANTANA [facility] [address] 09/18/2020 09:18:52 09/22/2020 08:57:21 Injury of rotator cuff 595187113 S46.092S 09/12/20 revision-i nitial surgery 07/18/20wea r [...] to covid isolation for 14 days Falls 653268244 R29.6 PT/OTmonit or for safety [id number] Danny Mcarthur MD [facility] [address] [address] 09/20/2020 09:45:42 09/22/2020 09:10:40 Falls 801091497 R29.6 PT/OT eval and treat monitor fall risk Injury of rotator cuff 616793583 S46.092S see HPI now s/p revision right rotator cuff surgery with initial completed in Jul 2020 follow surgery recs PT OT eval and treat monitor for pain control update surgery with concerns Anxiety 92534438 F41.1 see above monitor ativan utilizatio n psych eval prn Depressive disorder 3548 9007 F32.89 celexa 20 mg qd wellbutrin SR 200 mg bid continue out patient dose monitor for change in mood psych eval prn Fibromyalgia 436650424 M 79.7 see above maintained on lyrica and tricyclic antidepres gissel monitor for effect avoid opioids as able Chronic low back pain 27 5640240 M54.5 lyrica 150 mg tid continued monitor for effect Non-toxic multinodular goiter 49701259 E04.2 added to PMH Gastroesop hageal reflux disease without esophagitis 128173613 K21.9 pantoprazo le 40 mg qd monitor for sx relief Vitamin D deficiency 347 23949 E56.8 maintained on Vit D Obesity 666167071 E66.09 dietary eval [id number] LYLE SANTANA [facility] [address] [place] [address] 09/25/2020 08:48:52 09/28/2020 12:59:06 Chronic low back pain 037123722 M54.5 states legs give out history of previous surgery appt made at [facility] on October 05, 2020 patient and PT/OT agrees with this Fibromyalgia 086689272 M 79.7 lyrica 150 mg tid nortriptyl ine 25 mg bid monitor pain [id number] [facility] [address] [place] [address] 10/02/2020 08:43:59 10/04/2020 13:00:56 Injury of rotator cuff 330996017 S46.092S 09/12/20 revision-i nitial surgery 07/18/20 wear sling at all times pendulums tid no lifting PROM/AROM- no strength meloxicam 15 mg qd methocarba mol 750 mg tid prn follow up with ortho (Dr Maharaj)- Chronic low back pain 27 8272915 M54.5 appt made at [facility] on October 05, 2020 able to ambulate but when back is bothering her the right leg gives out will await recommenda tions Falls 378001096 R29.6 PT/OT monitor for safety reminders to use call redd [id number] LYLE SANTANA [facility] [address] [address] 10/09/2020 08:49:40 10/11/2020 15:15:25 Falls 378768848 R29.6 follow up with PCP Injury of rotator cuff 510143232 S46.092S 09/12/20 revision-i nitial surgery 07/18/20 wear sling at all times pendulums tid OK to shower PROM/AAROM no abduction >45 no external rotation no forward flexion >45 no strength meloxicam 15 mg qd tizanidine 4 mg tid methocarba mol 750 mg tid prn follow up with ortho (Dr Maharaj) on October 19 at 2:30 Anxiety 26795226 F41.1 ativan 0.5 mg tid prn follow up with PCP Asthma 108423728 J45.20 loratadine 10 mg qd alb hfa 90 mcg 2 puffs q 6 hrs prn follow up with PCP Depressive disorder 3548 9007 F32.89 citalopram 20 mg qd bupropion SR 200 mg bid follow up with PCP Fibromyalgia 712621297 M 79.7 lyrica 150 mg tid nortryptyl ine 25 mg bid follow up with PCP Chronic low back pain 27 0504559 M54.5 follow with [facility] on October 18 at 10:30 in [facility] Non-toxic multinodular goiter 67673705 E04.2 follow up with PCP Gastroesop hageal reflux disease without esophagitis 988119388 K21.9 pantoprazo le 40 mg qd follow up with PCP Vitamin D deficiency 347 87010 E56.8 vitamin D2 62526 units q week follow up with PCP Obesity 984293396 E66.8 follow up with PCP [id number] LYLE SANTANA [facility] [address] [address] 11/15/2020 08:32:31 11/23/2020 16:01:37 Vertigo 136441375 R42 meclizine 25 mg tid prn work up done in hospital felt to be poly pharmacy-t osiel would like us to simplify her medication s monitor for improvemen t [place] 070387726 R29.6 PT/OT eval and treat monitor for safety Fibromyalgia 323560850 M 79.7 lyrica 150 mg tid nortryptyl ine 25 mg qd monitor Gastroesop hageal reflux disease without esophagitis 318206112 K21.9 pantoprazo le 40 mg qd monitor for symptoms Depressive disorder 3548 9007 F32.89 bupropion SR 200 mg bid monitor mood psych eval and treat prn Chronic low back pain 27 2225669 M54.5 neurontin 100 mg tid follow with [facility] Asthma 374088869 J45.20 loratadine 10 mg qd alb hfa 90 mcg 2 puffs q 6 hrs prn flovent hfa 110 mcg 1 puff bid monitor respirator y status Anxiety 02366829 F41.1 ativan 0.5 mg tid prn monitor Obesity 996233260 E66.8 monitor Vitamin D deficiency 347 45254 E56.8 vitamin D2 1250 mcg q week monitor levels Non-toxic multinodular goiter 22861086 E04.2 monitor Injury of rotator cuff 612785279 S46.092S 09/12/20 revision-i nitial surgery 07/18/20 meloxicam 15 mg qd tizanidine 4 mg tid prn monitor [id number] Danny Mcarthur MD [address] [address] 11/20/2020 12:24:00 11/23/2020 16:24:02 Vertigo 303083260 R42 see HPI eval by neuro in hospital medication s adjusted monitor on antivert 25 mg tid prn titrate prn question BPV consider liilana maneuver [place] 108987376 R29.6 PT/OT eval and treat monitor for safety Fibromyalgia 628129540 M 79.7 meds adjusted now off celexa monitor for change in presentati on Gastroesop hageal reflux disease without esophagitis 543578509 K21.9 pantoprazo le 40 mg qd monitor for sx relief Depressive disorder 3548 9007 F32.89 monitor with med adjustment s psych to eval prn Chronic low back pain 27 4022659 M54.5 known at baseline given above complaints monitor ability to reduce neurontin Anxiety 97145491 F41.1 stable on ativan see above Obesity 977145574 E66.8 dietary eval Non-toxic multinodular goiter 36195951 E04.2 added to PMH Pain in right knee 63454 89680 05515 M25.561 xray to eval monitor for change Vitamin D deficiency 347 06097 E56.8 maintained on Vit D [id number] LYLE SANTANA [facility] [address] [address] 11/21/2020 09:08:41 11/24/2020 09:26:16 Osteoarthritis of knee 975135745 M17.11 tylenol prn meloxicam 15 mg qd zanaflex 4 mg q 8 hrs prn nortriptyl ine 25 mg qd lyrica 150 mg tid neurontin 100 mg tid monitor [id number] LYLE SANTANA [facility] [address] [address] 11/22/2020 08:56:09 11/24/2020 09:35:24 Vertigo 254401815 R42 meclizine 25 mg tid prn work up done in hospital felt to be poly pharmacy-t denyy would like PCP to simplify her medication s follow up with PCP [place] 402983554 R29.6 follow up with PCP Fibromyalgia 853506400 M 79.7 lyrica 150 mg tid nortryptyl ine 25 mg qd follow up with PCP Gastroesop hageal reflux disease without esophagitis 610585109 K21.9 pantoprazo le 40 mg qd follow up with PCP Depressive disorder 9108 9007 F32.89 bupropion SR 200 mg bid follow up with PCP Chronic low back pain 27 6479217 M54.5 neurontin 100 mg tid follow with [facility] Asthma 154830197 J45.20 loratadine 10 mg qd alb hfa 90 mcg 2 puffs q 6 hrs prn flovent hfa 110 mcg 1 puff bid follow up with PCP Anxiety 67234494 F41.1 follow up with PCP Obesity 439081760 E66.8 follow up with PCP Vitamin D deficiency 347 58073 E56.8 vitamin D2 1250 mcg q week on friday follow up with PCP Non-toxic multinodular goiter 41755502 E04.2 follow up with PCP Injury of rotator cuff 939989678 S46.092S 09/12/20 revision-i nitial surgery 07/18/20 meloxicam 15 mg qd tizanidine 4 mg tid prn follow up with PCP [id number] Araceli Mendoza NP [address] [address] 11/20/2023 08:21:31 11/24/2023 11:41:22 Vertigo 863376029 R42 meclizine 25 mg tid prnmonitor orthos q shift x 3 days, then bp dailymonit or for improvemen t [place] 066021301 R29.6 ct, xrays, ekg, labs neg for acute concerns PT/OT eval and treatlabs reviewed and stablemoni tor for safety Fibromyalgia 798273582 M 79.7 nortryptyl ine 25 mg bidlidocai ne patch on in am off in pmsee low back painmonito r Gastroesop hageal reflux disease without esophagitis 874507293 K21.9 pantoprazo le 40 mg qd monitor for symptoms Depressive disorder 3548 9007 F32.89 bupropion SR 200 mg bid monitor mood psych eval and treat prn Chronic low back pain 27 1522086 M54.50 with multiple drug allergiesl idocaine patch dailyflexe ril 10 mg po q 12 hours prn pain/spasm spt ot treat and evalfollow with [facility] outpt prn Asthma 398614478 J45.20 loratadine 10 mg qd monitor respirator y status Anxiety 29968373 F41.1 buspar 10 mg bidmonitor Obesity 203933402 E66.8 monitor weights and supportive aredietici an following Vitamin D deficiency 347 38293 E56.8 vitamin d3 2000 unit daily monitor levels Non-toxic multinodular goiter 53918380 E04.2 monitor Mixed anxi ety and depressive disorder 118164758 F41.8 buspar 10 mg bidbupropr ion 200 mg sr po bidduloxet ine 30 mg cap po bidmonitor Asthenia 32460894 R53.1 pt with weaknesspt ot eval and treatmonit or [id number] Jane Galvan MD [address] [address] 11/21/2023 21:16:22 11/26/2023 09:12:25 Vertigo 748061883 R42 Continue meclizine 25 mg TID prnNeeds PT/OT for strengthen ing, balance, gait training, safety and function.C ontinue fall precaution s.Monitor for safety.Macey el orthostati c vitals. Falls 635773207 R29.6 As above. Asthenia 37820744 R53.1 As above. Fibromyalgia 916801592 M 79.7 Continue meds as above and nortryptyl ine 25 mg BID and duloxetine 30 mg BID.Monito r sxs. Gastroesop hageal reflux disease without esophagitis 494952098 K21.9 No current sxs. Continue pantoprazo le 40 mg qd Monitor for GI sxs. Chronic low back pain 27 7977884 M54.51 Failed back syndrome.C ontinue lidocaine patch qd, cyclobenza kyra 10 mg q 12 hrs prn and meds for fibromyalg ia as below.PT/O T eval and tx.F/U with [facility] as outpt Asthma 643847011 J45.20 No recent sxs. Not on inhalers. Continue loratadine 10 mg qd Monitor resp status. Mixed anxi ety and depressive disorder 743998614 F41.8 F32.89 Mood good tonight.Co ntinue Buspar 10 mg BID, buproprion 200 mg BID and duloxetine 30 mg BID.Monito r mood.Consu lt psych prn Obesity 336362265 E66.8 Continue to encourage healthy eating. tician consult Vitamin D deficiency 347 04310 E56.8 Continue cholecalci ferol 2000 IU qd.Monitor levels as outpt Non-toxic multinodular goiter 15013907 E04.2 Last TSH on 10/20/23 was 6.16 with nl FT4. F/U with PCP as outpt. Health Concerns Section Related Observation LastModified by Organization Detai ls LastModified Time None Recorded Concern Status LastModified by Organization Details LastModified Time None Recorded Advance Directives Directive Y: DNR/DNI/DNV-no non invasi ve ventilation/may transfer to hospital-no dialysis, nutrition but may use hydration Payers Insurance Date Sequence Insurance Name Policy Number Policy Maradiaga Covered Member ID Maradiaga Member ID Guarantor Name 11/20/2023 1 [facility] - DOS PRIOR TO 2022 - DUAL ELIGIBLE (MEDICARE REPLACEMENT/ADV ANTAGE - HMO) Latia Mcqueen [id number] Sabrina Mcqueen 11/26/2023 1 [facility] - DOS ON OR AFTER 2022 - MEDICARE ADVANTAGE [place] (MEDICARE REPLACEMENT/ADV ANTAGE - PPO) Sabrina Mcqueen [id number] Sabrina Mcquene Notes Date Note Type Note Provider Name [...] pain and swelling with imaging ordered to [facility] significant forgait instabilitydepressionchronic low back paingerdasthmafibromyalgiagait instability admit to facility for continued care and therapy Danny Mcarthur MD [address] [facility], [address], [place], [address], [employer] 11/20/2020 12:41:49 11/22/19 21 text/ht ml 64 year old female being seen for a acute rounding visit. Patient had a right knee x=ray for c/o right knee pain that revealed mild tricompartmental osteoarthritis and no acute abnormality. Will continue to monitor for pain. LYLE SANTANA [address] [facility], [address], [place], [address], [employer] 11/21/2020 19:43:26 11/23/19 21 text/ht ml A 64 year old female being seen for a discharge summary. Patient was brought to [facility] after her LIGHT ARMORED RECONNAISSANCE OFFICER found her sitting in a chair in [...] deficiency, goiter and injury to rotator cuff. SIMRAN HOUSTON, PATTERNMAKER HELPER [address] [facility], [address], [place], [address], [facility] 11/22/2020 13:54:07 11/20/19 24 text/ht ml A 67 year old female being seen for a initial intake note. Medical history of vertigo, falls, fibromyalgia, GERD, depression, chronic low back pain, asthma, anxiety, obesity, vitamin D deficiency, goiter and injury to rotator cuff. Sabrina presented to [facility] ED for evaluation of back pain, nausea, and fell to the ground in her apartment without LOC diagnosised of worsening low back pain, disc herniation, and hx of compression fracture and transferred to [facility] for continued care and rehab on 11/19/23. Her workup conisted of CT head, cr spine lumbar, blood work and ekg all unremarkable for acute fracture. Mild multilevel degernerative endplate spurring with lower lumbar predominant facet arthritis noted. Blood work including troponin unremarkable. She was given a lidocaine patch and flexeril for pain. 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 of note: she was admitted to rehab in 2020 for similar concerns. On exam, Sabrina is seen in sitting up at her bedside in [facility]. She denies any pain, shortness of breath, nausea, dizziness, or chest pain. She is very pleasant and denies any new concerns today. 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 MOLST: DNR/DNI/transfer to hospital, no dialysis, no art nutrition, may use hydration short term Araceli Mendoza NP [address] [facility], [address], [place], [address], [employer] 11/20/2023 09:11:01 11/21/19 24 text/ht ml This is a 67 yo woman who is here for rehab after an ED visit for a fall with subsequent back pain.She presented to the [facility] ED on 11/17 after a fall [...] and vitamin D deficiency. Jane Galvan MD [address] [facility], [address], [place], [address], [employer] 11/21/2023 22:52:34 OBGyn Episode No OBEpisode recorded.
== END 2025-05-13 15:14 | disposition home or self-care (01) ==
LOC: HO.HMCH 14:31
PROVIDERS: PCP Internal Medicine; Visit Provider Nurse Practitioner Family
DX: M96.1 Postlaminectomy syndrome, not elsewhere classified (principal)

== ENCOUNTER → 2025-05-13 14:30 | Outpatient (BNVA) | payer OTHER, SELFPAY | PROVIDERS: PCP Internal Medicine; Visit Provider Nurse Practitioner Family | DX: M96.1 Postlaminectomy syndrome, not elsewhere classified (principal); R29.6 Repeated falls; Z79.899 Other long term (current) drug therapy | CPT/HCPCS: 99212 ==

== ENCOUNTER 2025-05-27 08:04 | Outpatient (AMB) | payer OTHER, SELFPAY ==
--- OUTSIDE RECORDS SUMMARY | 2025-05-27 08:08 | XMS_ITS | Data Portability ---
Author Organization [employer], [facility] Address [address] [place] [address] Care Team Providers Care Organic Preparation Analyst Name Role Phone HIM CCA OTHER BLAZE PATTEN Primary Care Provider Assessment Encounter Date Assessment Date Assessment LastModified by Organization Details LastModified Time 10/22/2023 10/22/2023 I provided real -time medical direction via phone for this encounter and was available for additional phone-based assistance as needed. I have reviewed and agree with the Assessment and Plan as documented by the Preschool Director. Patient given the opportunity to ask questions. Our service contacted for an assessment of: Urinary symptoms As per above, patient with approximately 24 hours of dysuria, frequency. No history of frequent urinary tract infections. Denies fever, chills, abdominal pain, back pain, flank pain. Per nurse informatics educator on the scene, Vital signs are stable [...] Assessment and Plan as documented by the Preschool Director. Patient given the opportunity to ask questions. [...] she was out of the medication. Per nurse informatics educator on the scene, Vital signs are stable patient is afebrile. Patient is nontoxic and a good historian of events. Per nurse informatics educator on the scene she has a nonfocal [...] Lab urinalys is, dipstick 2023 024 [facility], [address] [place] [address], [id number] 4 09:18:24 culture, urine 2023 024 [email or web address] [facility] (Centralized Electronic Ordering - All Locations), Patient Can Go To The Location Of Their Choice, [id number] 4 09:55:32 urinalys is, dipstick 2023 024 [facility], [address] [place] [address], [id number] 09:18:51 Referral None recorded . Procedures None recorded . Surgeries None recorded . Imaging None recorded . Medication Orders meclizin e 25 mg tablet 2024 025 [id number], [address] [place], [address], 5 18:19:50 meclizin e 25 mg tablet 2024 025 [facility] [id number], [address] [place], [place], [id number], 5 18:19:56 meclizin e 25 mg tablet 2024 025 [email or web address] [id number], [address] [place], [address], 5 18:23:15 levoflox acin 500 mg tablet 2023 024 [facility], [address] [place], [address], 4 21:23:53 lactated Ringers intraven ous solution 2022 023 [email or web address], [address] [place], [address], 3 12:22:06 Patient TargetsNo targets recorded. Patient InstructionsNo instructions recorded. Reason for Referral None Reported. Results Created Date Observation Date Name Description Value Unit Range Abnormal Flag Note LastModifiedBy Organization Detail LastModifiedTime 02/24/2002/23/2023 BMP, serum or plasm a BUN 19 Not Available [facility] [address], [address] 02/23/2023 19:45:16 02/24/20 23 02/23/2023 BMP, serum or plasm a CI- 99 Not Available [facility] [address], [address] 02/23/2023 19:45:16 02/24/20 23 02/23/2023 BMP, serum or plasm a CRE 0.7 Not Available [facility] [address], [address] [place] [address] 02/23/2023 19:45:16 02/24/20 23 02/23/2023 BMP, serum or plasm a GLU 162 Not Available [facility] [address], [address] [place] [address] 02/23/2023 19:45:16 02/24/20 23 02/23/2023 BMP, serum or plasm a K+ 4.2 Not Available [facility] [address], [address] [place] [address] 02/23/2023 19:45:16 02/24/20 23 02/23/2023 BMP, serum or plasm a Na+ 139 Not Available [facility] [address], [address] [place] [address] 02/23/2023 19:45:16 02/24/20 23 02/23/2023 BMP, serum or plasm a tCO2 20 Not Available [facility] [address], [address] [place] [address] 02/23/2023 19:45:16 03/01/20 23 03/01/2023 BMP, serum or plasm a BUN 23 Not Available [facility] [address], [address] [place] [address] 03/01/2023 13:31:01 03/01/20 23 03/01/2023 BMP, serum or plasm a CRE 0.7 Not Available [facility] [address], [address] [place] [address] 03/01/2023 13:31:01 03/01/20 23 03/01/2023 BMP, serum or plasm a GLU 131 Not Available [facility] [address], [address] 03/01/2023 13:31:01 03/01/20 23 03/01/2023 BMP, serum or plasm a K+ 4.6 Not Available [facility] [address], [address] [place] [address] 03/01/2023 13:31:01 03/01/20 23 03/01/2023 BMP, serum or plasm a Na+ 140 Not Available [facility] [address], [address] [place] [address] 03/01/2023 13:31:01 03/01/20 23 03/01/2023 BMP, serum or plasm a tCO2 28 Not Available [facility] [address], [place], [address] 03/01/2023 13:31:01 Result Notes None recorded. Medical [...] weight Body height Body temperature Oxygen saturation Respiratory rate Heart rate Systolic And Diastolic Provider Name and Address Organization Details Last Updated DateTime 4 52524.6 g 152.4 cm 98.4 [degF] 96 % 14 /min 80 /min 124/80 mm[Hg] Not Available [employer] 4 21:21:02 Date Recorded Respiratory rate Body temperature Heart rate Oxygen saturation Systolic And Diastolic Provider Name and Address Organization Details Last Updated DateTime 5 18 /min 97.7 [degF] 71 /min 97 % 129/75 mm[Hg] Not Available [employer] 5 18:20:58 Date Recorded Oxygen saturation Respiratory rate Heart rate Body temperature Systolic And Diastolic Provider Name and Address Organization Details Last Updated DateTime 5 95 % 16 /min 83 /min 98 [degF] 138/98 mm[Hg] Not Available [employer] 5 18:17:10 Date Recorded Body temperature Respiratory rate Heart rate Oxygen saturation Systolic And Diastolic Provider Name and Address Organization Details Last Updated DateTime 3 97.9 [degF] 16 /min 99 /min 97 % 128/78 mm[Hg] Not Available [employer] 3 11:48:04 Date Recorded Body temperature Heart rate Respiratory rate Oxygen saturation Systolic And Diastolic Provider Name and Address Organization Details Last Updated DateTime 3 96.9 [degF] 72 /min 16 /min 100 % 161/90 mm[Hg] Not Available [employer] 3 15:42:48 Social History None recorded. Functional Status None recorded. Mental Status None recorded. Family History Nothing Reported. Medical History No medical history recorded. Gynecological HistoryNo gynecological history recorded. Obstetrics History GPAL:G 0 P 0 0 0 0 Past Encounters Encounter ID Performer Location Encounter Start Date Encounter Closed Date Diagnosis/Indication Diagnosis SNOMED-CT Code Diagnosis ICD10 Code Diagnosis IMO Codes Diagnosis Note [id number] Kesha Beck MD Main - [address] [phone] 02/21/2023 15:44:06 02/22/2023 15:35:21 Dehydration 86766416 E86.0 [id number] Sajan Rueda MD [facility] - [address] [address] 02/23/2023 18:33:42 02/24/2023 07:20:36 Dizziness 682236174 R42 As noted, we were called to see this patient regarding concerns of dizziness/ unsteadine ss. Evaluation in the field was performed by my nurse informatics educator colleague, as noted above, I provided real-time [...] uncertain etiology, ddx includes hypovolemi a, meds, MANAGER OF ORGANIZATIONAL DEVELOPMENT or PNS process, including focal lesions, neuropathy [...] particular ly falling, confusion, face/arm/l eg weakness. [id number] Madelyn Robertson MD [facility] - [address] [address] 03/01/2023 13:28:34 03/04/2023 11:06:40 Acute gastroenteritis 40608930 K52.9 Evaluation in the field was performed by my nurse informatics educator colleague, as noted above, I provided real-time [...] shortness of breath, cough, chest pain, fever. [id number] Carmen Pemberton MD Main - [address] [address] 03/02/2023 11:45:43 03/04/2023 11:11:38 Acute gastroenteritis 57445920 K52.9 67 yo w/ gastroente ritis, seen two days ago by [facility] w/ c/o NBNB nausea/vom itting/derrek rrhea. Treated [...] on Friday morning. Questions answered; pt and nurse informatics educator agreeable with plan [id number] Jose Hawk MD [facility] - [facility] [address] [place] [phone] 04/06/2023 15:42:46 04/07/2023 08:17:20 Syncope and collapse 187145503 R55 This 67-year-ol d female has had two episodes of syncope without warning in the past 24 hours. She did hit her head and now complains of head and neck pain. I recommende d that she go to the ER for further evaluation and treatment. The patient resisted this recommenda tion, so I instructed the nurse informatics educator to try and change her mind. [id number] Alie Dillard MD [facility] - [facility] [address] [place] [phone] 10/22/2023 21:20:49 10/23/2023 11:15:53 Urinary symptoms 260857396 R39.9 [id number] [facility] [address] [place] [phone] 11/16/2024 18:20:56 11/16/2024 21:08:15 Dizziness 343538878 R42 [id number] Madelyn Robertson MD [facility] - [facility] [address] [place] [phone] 11/20/2024 18:17:08 11/21/2024 18:14:07 Vertigo 388244558 R42 19373 Evaluation in the field was performed by my nurse informatics educator colleague, as noted above, I provided real-time [...] Maradiaga Member ID Guarantor Name 11/16/2024 1 [facility] - DOS ON OR AFTER 2022 - DUAL ELIGIBLE - FDC OPTIONS AND ONE CARE (MEDICARE REPLACEMENT/ADV ANTAGE - HMO) Sabrina Mcqueen [id number] Sabrina Mcqueen Notes Date Note Type Note [...] POC bloodwork drawn, unremarkable. Sent results to [facility], [facility] contacted [facility] ordered 1L of NS and 4MG of zofran IVP. [facility] sent prescription for Zofran to pt's pharmacy. Pt educated on s/s warranting a 911 call/trip to the hospital. Pt advised to F/U with PCP or [facility] if symptoms persist or worsen. Shreyas TORRES ...................... ...................... ...................... ...................... ...................... ...................... ......... Preschool Director Note From Man Bolton: Dispatched to the [...] airway open and patent. 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 Able to speak in full sentences, -JVD, -HEENT, pupils PERRL, and soft non tender/distended, skin PWD with good turgid, lung sounds clear an equal bilaterally. [facility] consulted. IV established. BMP conducted, 1L LR given. Red flags discussed. All times are approx. ...................... ...................... ...................... ...................... ...................... ...................... ......... Disposition: Fulfilled Carmen Pemberton MD [address] [place] [address],[address], [place], [address], [employer] 03/03/2023 12:22:18 04/06/2023 text/html ROS as noted in the HPI CRC Nursing Assessment: Chief Complaints: Syncope/Dizziness/Ligh theadedness, Falls PMH: COPD/Asthma Allergies: Unknown Comments: + dizziness since yesterday. Fall x2 yesterday and today. Unsteady gait due to dizziness. Unknown LOC. Possible head strike. c/o left wrist pain. Advised ED for further evaluation. Member declined ED after education but will accept [facility] visit first. Red flags reviewed. Instructed to call 911 for worsening symptoms. Jose Hawk MD [address] [place] [address],[address] [facility], [place], [address], [employer] 04/06/2023 15:45:49 10/22/2023 text/html CRC Nurse Triage Notes (Morenita Dawson): Chief Complaints: Pain PMH: COPD/Asthma Allergies: Unknown Comments: Taiwanese speaking member. 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 Verified name//address. Member reports left flank pain that is getting worse. Reports multiple falls. Last fall on Friday. Member states she was evaluated s/p falls. Denies fevers. Denies urinary symptoms. Denies chest pain or shortness of breath. Advised member to call 911 with worsening signs/symptoms. ...................... ...................... ...................... ...................... ...................... ...................... ......... Preschool Director Note From Costa Nielsen: Patient conscious alert [...] sample culture to [facility] UA values to [facility]. [facility] orders levafloxacin 500 mg PO and will prescribe more to patients local pharmacy. Red flags and patient education discussed. Consent, signed and uploaded times two ...................... ...................... ...................... ...................... ...................... ...................... ......... Disposition: Fulfilled Alie Dillard MD [address] [place] [address],[address], [place], [address] [employer] 10/22/2023 21:25:11 11/16/2024 text/html CRC Nurse Triage [...] 68 y.o female complains of Dizziness, Weakness Taiwanese speaking patient reporting dizziness when turning head, [...] ...................... ...................... ...................... ...................... ...................... ...................... ......... Preschool Director Note From Bonnie Morales: Sent to a [...] for UTI and Vertigo at [facility]. Pt is still taking Keflex [...] unremarkable; Extremities: unremarkable; Skin: pink, warm, dry; [facility] consulted and orders Meclizine 25mg PO. Meclizine 25mg PO administered. Pt advised to follow up with PCP again tomorrow. Red flags discussed. Pt has no further questions. [facility] Medication Orders: meclizine 25 mg tablet: Administered ...................... ...................... ...................... ...................... ...................... ...................... ......... [facility] Consulted: Alie Dillard ...................... ...................... ...................... ...................... ...................... ...................... ......... Disposition: Fulfilled Alie Dillard MD [address] [place] [address],[address], [place], [address], [employer] 11/16/2024 19:43:20 11/20/2024 text/html CRC [...] Disease (GERD), Fibromyalgia, Depression PMH Reviewed at 11/20/2024 Allergies Reviewed at 11/20/2024:42 Comments: 68 y.o [...] ...................... ...................... ...................... ...................... ...................... ...................... ......... Preschool Director Note From Chai Nunez: Encountered patient, supine in bed and conscious. Patient reports she has a history of vertigo for which she is treated with meclizine, was admitted from 11/11/24-11/13/24 at [facility] for said vertigo. Patient reports she [...] Extremity is free of trauma and edema. [facility] contacted: recommends patient be transported to the emergency room since she lives by herself and is suffering falls due to her dizziness, despite taking meclizine as prescribed. [facility] additionally states if patient is refusing transport [...] ...................... ...................... ...................... ...................... ...................... ...................... ......... [facility] Consulted: Madelyn Robertson ...................... ...................... ...................... ...................... ...................... ...................... ......... Disposition: Fulfilled Madelyn Robertson MD [address] [facility],[address], [place], [address], [employer] 11/20/2024 21:14:56 OBGyn Episode No OBEpisode recorded.
--- OUTSIDE RECORDS SUMMARY | 2025-05-27 08:08 | XMS_ITS | Data Portability ---
Author Organization [facility], Main Office Address [address], [address] [place] [address] Care Team Providers Care Blender Name Role Phone BLAZE PATTEN Primary Care Provider [facility] - 2ND FLOOR OTHER Assessment Encounter Date Assessment Date Assessment LastModified by Organization Details LastModified Time 11/22/2020 11/22/2020 11/21/20 WBC 5.5, Hgb 13, Hct 40.7, Plt 278, Na 141, K 4.6, BUN 11, Oil Painter 0.72, karri 8.8 11/15/20 WBC 5.4, Hgb 13.2, Hct 41.3, Plt 291, Na 138, K 4.3, BUN 17, Oil Painter 1.06, karri 8.6, tot prot 6.9, alb 3.2, tot bili 0.2, AST 19, ALT 24, alk phos 125 [email or web address] Not available 11/22/2020 10:14:01 11/20/2023 11/20/2023 11/15/20 WBC 5.4, Hgb 13.2, Hct 41.3, Plt 291, Na 138, K 4.3, BUN 17, Oil Painter 1.06, karri 8.6, tot prot 6.9, alb 3.2, tot bili 0.2, AST 19, ALT 24, alk phos 125 Not available 11/20/2023 08:21:55 11/21/2023 11/21/2023 11/15/20 WBC 5.4, Hgb 13.2, Hct 41.3, Plt 291, Na 138, K 4.3, BUN 17, Oil Painter 1.06, karri 8.6, tot prot 6.9, alb [...] and Address Organization Details Recorded Time Falls 260485472 Active 2020 LYLE SANTANA [address], [address], [place], [address], [facility] [employer] [place] [facility] 1 09:16:33 Injury of rotator cuff 483429985 Active 2020 LYLE SANTANA [address], [address], [place], [address], [facility] [employer] [place] [facility] 1 09:17:03 Anxiety 48750704 Active 2020 LYLE SANTANA [address], [place], [address], [facility] [employer] 1 09:19:26 Asthma 307622460 Active 2020 LYLE SANTANA [address], [place], [address], [facility] [employer] [place] [facility] 1 09:19:37 Depressive disorder 87773545 Active 2020 LYLE SANTANA [address], [place], [address], [facility] [employer] [place] [facility] 1 09:19:46 Fibromyalgia 038365180 Active 2020 LYLE SANTANA [address], [address], [place], [address], [facility] [employer] [place] [facility] 1 09:19:57 Chronic low back pain 891300475 Active 2020 LYLE SANTANA [address], [place], [address], [facility] 1 09:23:26 Non-toxic multinodular goiter 80077072 Active 2020 LYLE SANTANA [address], [address], [place], [address], [facility] 1 09:31:03 Gastroesophage al reflux disease without esophagitis 631529966 Active 2020 LYLE SANTANA [address], [address], [place], [address], [facility] 1 17:45:05 Vitamin D deficiency 08772456 Active 2020 LYLE SANTANA [address], [place], [address], [facility] 1 17:50:09 Obesity 088776666 Active 2020 Danny Mcarthur MD [address], [place], [address], [facility] 1 10:03:21 Vertigo 702802475 Active 2020 LYLE SANTANA [address], [place], [address], [facility] 22:04:34 Osteoarthritis of knee 611014348 Active 2020 LYLE SANTANA [address], [place], [address], [facility] 1 09:11:19 Asthenia 00509509 Active 2023 Araceli Mendoza NP [address], [place], [address], [facility] 4 08:59:56 Problem Notes None recorded. Procedures Surgical History Date Name Laterality Status Provider Name and Address Organization Details Recorded Time 07/18/19 21 complete repair of rotator cuff completed LYLE SANTANA [address], [address], [place], [address], [facility] 09/15/2020 17:42:10 cholecystectomy completed SIMRAN HOUSTON, INSURANCE SPECIALIST [address], [address], [place], [address], [facility] 09/15/2020 09:26:25 Hysterectomy completed SIMRAN HOUSTON, INSURANCE SPECIALIST [address], [address], [place], [address], [facility] 09/15/2020 09:28:09 laminectomy completed SIMRAN HOUSTON, INSURANCE SPECIALIST [address], [place], [address], [facility] 09/15/2020 09:29:37 Imaging Results None recorded. Procedure Notes None recorded. Medical Equipment None Reported. Allergies Allergen ID Allergen Name Allergen Category Reaction Reaction Severity Criticality Documentation Date Start Date Code Code System Note Provider Name and Address Organization Details Recorded Time 00013 codeine medicatio n rash Not available Not available 09/15/2020 2670 RxNorm SIMRAN HOUSTON, INSURANCE SPECIALIST [address], [address], [place], [address], [facility] 09:07:10 57927 morphine medicatio n rash Not available Not available 09/15/2020 7052 RxNorm SIMRAN HOUSTON, INSURANCE SPECIALIST [address], [address], [place], [address], [facility] 09:07:28 63575 Nubain medicatio n rash Not available Not available 09/15/2020 7550 RxNorm SIMRAN HOUSTON, INSURANCE SPECIALIST [address], [address], [place], [address], [facility] 09:07:44 65882 oxycodone medicatio n rash Not available Not available 09/15/2020 7804 RxNorm SIMRAN HOUSTON, INSURANCE SPECIALIST [address], [place], [address], [facility] 09:08:42 24378 propoxyph leonel medicatio n rash Not available Not available 09/15/2020 8785 RxNorm SIMRAN HOUSTON, INSURANCE SPECIALIST [address], [address], [place], [address], [facility] 1 09:09:13 35143 Ultram medicatio n rash Not available Not available 09/15/2020 56660 6 RxNorm SIMRAN HOUSTON, INSURANCE SPECIALIST [address], [address], [place], [address], [facility] 1 09:09:31 88355 ibuprofen medicatio n rash Not available Not available 09/15/2020 5640 RxNorm SIMRAN HOUSTON, INSURANCE SPECIALIST [address], [address], [place], [address], [facility] 1 09:09:48 30450 Singulair medicatio n Not available Not available Not available 09/15/2020 97809 9 RxNorm SIMRAN HOUSTON, INSURANCE SPECIALIST [address], [address], [place], [address], [facility] 1 09:09:[address] [facility] [address] medicatio n Not available Not available unabletoasse 11/20/2023 16213 RxNorm Araceli Mendoza NP [address], [address], [place], [address], [facility] 4 08:27:44 82677 acetamino phen medicatio n other Not available unabletoasse 11/20/2023 161 RxNorm unkno wn Araceli Mendoza NP [address], [address], [place], [address], [facility] 4 08:28:06 92211 [employer] medicatio n other Not available unabletoasse 11/20/2023 3423 RxNorm Araceli Mendoza NP [address], [address], [place], [address], [facility] [employer] 4 08:28:54 Vitals Date Recorded Body weight Heart rate Respiratory rate Body temperature Oxygen saturation Systolic And Diastolic Provider Name and Address Organization Details Last Updated DateTime 4 14781.4 g 64 /min 18 /min 96 [degF] 95 % 113/72 mm[Hg] Araceli Mendoza NP [address], [address], [place], [address], [facility] 4 08:22:52 Date Recorded Systolic And Diastolic Provider Name and Address Organization Details Last Updated DateTime 11/20/2020 133/69 mm[Hg] Danny Mcarthur MD [address], [address], [place], [address], [facility] 11/20/2020 12:24:49 Date Recorded Body weight Body mass index (BMI) Body height Heart rate Respiratory rate Body temperature Oxygen saturation Systolic And Diastolic Provider Name and Address Organization Details Last Updated DateTime 4 44709.1 9 g 34 kg/m2 167.64 cm 80 /min 18 /min 97.5 [degF] 93 % 124/78 mm[Hg] Jane Galvan MD [address], [address], [place], [address], [facility] 4 21:22:27 Date Recorded Oxygen saturation Body temperature Body weight Provider Name and Address Organization Details Last Updated DateTime 11/21/2020 99 % 97.8 [degF] 767128.94 g LYLE SANTANA [address], [address], [place], [address], [facility] 11/21/2020 19:41:18 Date Recorded Heart rate Respiratory rate Body temperature Oxygen saturation Provider Name and Address Organization Details Last Updated DateTime 11/22/2020 69 /min 15 /min 98.2 [degF] 99 % LYLE SANTANA [address], [address], [place], [address], [facility] 1 10:24:20 Social History Question Answer Notes LastModified by Organizat ion Details LastModified Time Tobacco Smoking Status Never Smoker LYLE SANTANA [address], [address], [place], [address], [facility] 09/15/2020 09:37:52 Do You Have An [...] Do You Have A Medical Power Of Manager Software Development? Yes Information not available 11/21/2023 What Was [...] Details Recorded Time Tdap 6 completed Krystal Galindo [facility], [facility] 11/20/2023 15:57:00 Tdap 7 completed Krystal Galindo [facility] 11/20/2023 15:57:07 Pneumococcal conjugate PCV 13 1 completed Krystal Galindo [facility] 11/20/2023 15:57:56 pneumococcal polysaccharide PPV23 5 completed Krystal [facility] 11/20/2023 15:58:14 influenza, unspecified formulation 2 completed [facility] 11/20/2023 15:58:35 Past Encounters Encounter ID Performer Location Encounter Start Date Encounter Closed Date Diagnosis/Indication Diagnosis SNOMED-CT Code Diagnosis ICD10 Code Diagnosis IMO Codes Diagnosis Note [id number] LYLE SANTANA [address] [address] 09/15/2020 09:05:35 09/19/2020 11:31:05 Falls 923253876 R29.6 PT/OT eval and treatmonit or for safety Injury of rotator cuff 754056236 S46.092S 09/12/20 revision-i nitial surgery 07/18/20wea r sling at all timespendu lums tidno liftingelb ow and wrist ROM okmeloxica m 15 mg qdtizanidi ne 4 mg tidadded methocarba mol 750 mg tid prn as she states this has worked better beforefoll ow up with ortho in 2 weeks (Dr Maharaj) Anxiety 81909908 F41.1 ativan 0.5 mg tid prndiscuss ed risk vs benefit of ativan with ptmonitor anxietypsy ch eval and treat prn Asthma 284298738 J45.20 loratadine 10 mg qdalb hfa 90 mcg 2 puffs q 6 hrs prnmonitor for symptoms Depressive disorder 4768 9007 F32.89 citalopram 20 mg qdbupropio n SR 200 mg bid discussed risk vs benefit of citalopram and bupropion with ptmonitor mood Fibromyalgia 908701176 M 79.7 lyrica 150 mg tidnortrip tyline 25 mg bid discussed risk vs benefit of lyrica and nortriptyl ine with ptmonitor pain Chronic low back pain 27 1073954 M54.5 see above Non-toxic multinodular goiter 44789348 E04.2 noted in historymon itor Gastroesop hageal reflux disease without esophagitis 171599072 K21.9 pantoprazo le 40 mg qdmonitor for symptoms Vitamin D deficiency 347 22486 E56.8 vitamin D2 16384 units q weekmonito r levels [id number] SIMRAN HOUSTON, LYLE [facility] [address] [address] 09/18/2020 09:18:52 09/22/2020 08:57:21 Injury of rotator cuff 094991120 S46.092S 09/12/20 revision-i nitial surgery 07/18/20wea r [...] to covid isolation for 14 days Falls 837687627 R29.6 PT/OTmonit or for safety [id number] Danny Mcarthur MD [address] [address] 09/20/2020 09:45:42 09/22/2020 09:10:40 Falls 274233824 R29.6 PT/OT eval and treat monitor fall risk Injury of rotator cuff 351151011 S46.092S see HPI now s/p revision right rotator cuff surgery with initial completed in Jul 2020 follow surgery recs PT OT eval and treat monitor for pain control update surgery with concerns Anxiety 83049966 F41.1 see above monitor ativan utilizatio n psych eval prn Depressive disorder 9278 9007 F32.89 celexa 20 mg qd wellbutrin SR 200 mg bid continue out patient dose monitor for change in mood psych eval prn Fibromyalgia 528293376 M 79.7 see above maintained on lyrica and tricyclic antidepres gissel monitor for effect avoid opioids as able Chronic low back pain 27 2456161 M54.5 lyrica 150 mg tid continued monitor for effect Non-toxic multinodular goiter 96786799 E04.2 added to PMH Gastroesop hageal reflux disease without esophagitis 348383402 K21.9 pantoprazo le 40 mg qd monitor for sx relief Vitamin D deficiency 347 27911 E56.8 maintained on Vit D Obesity 808178055 E66.09 dietary eval [id number] LYLE SANTANA [facility] [address] [address] 09/25/2020 08:48:52 09/28/2020 12:59:06 Chronic low back pain 549791332 M54.5 states legs give out history of previous surgery appt made at [facility] on October 05, 2020 patient and PT/OT agrees with this Fibromyalgia 026762704 M 79.7 lyrica 150 mg tid nortriptyl ine 25 mg bid monitor pain [id number] LYLE SANTANA [facility] [address] [address] 10/02/2020 08:43:59 10/04/2020 13:00:56 Injury of rotator cuff 501642452 S46.092S 09/12/20 revision-i nitial surgery 07/18/20 wear sling at all times pendulums tid no lifting PROM/AROM- no strength meloxicam 15 mg qd methocarba mol 750 mg tid prn follow up with ortho (Dr Maharaj)- Chronic low back pain 27 8813092 M54.5 appt made at [facility] on October 05, 2020 able to ambulate but when back is bothering her the right leg gives out will await recommenda tions Falls 071543240 R29.6 PT/OT monitor for safety reminders to use call redd [id number] LYLE SANTANA [facility] [address] [address] 10/09/2020 08:49:40 10/11/2020 15:15:25 Falls 817996654 R29.6 follow up with PCP Injury of rotator cuff 096318762 S46.092S 09/12/20 revision-i nitial surgery 07/18/20 wear sling at all times pendulums tid OK to shower PROM/AAROM no abduction >45 no external rotation no forward flexion >45 no strength meloxicam 15 mg qd tizanidine 4 mg tid methocarba mol 750 mg tid prn follow up with ortho (Dr Maharaj) on October 19 at 2:30 Anxiety 05914922 F41.1 ativan 0.5 mg tid prn follow up with PCP Asthma 631498006 J45.20 loratadine 10 mg qd alb hfa 90 mcg 2 puffs q 6 hrs prn follow up with PCP Depressive disorder 3548 9007 F32.89 citalopram 20 mg qd bupropion SR 200 mg bid follow up with PCP Fibromyalgia 616208423 M 79.7 lyrica 150 mg tid nortryptyl ine 25 mg bid follow up with PCP Chronic low back pain 27 8912817 M54.5 follow with [facility] on October 18 at 10:30 in [facility] Non-toxic multinodular goiter 07877624 E04.2 follow up with PCP Gastroesop hageal reflux disease without esophagitis 826979735 K21.9 pantoprazo le 40 mg qd follow up with PCP Vitamin D deficiency 347 14905 E56.8 vitamin D2 28986 units q week follow up with PCP Obesity 093972860 E66.8 follow up with PCP [id number] LYLE SANTANA [address] [address] 11/15/2020 08:32:31 11/23/2020 16:01:37 Vertigo 604646229 R42 meclizine 25 mg tid prn work up done in hospital felt to be poly pharmacy-t osiel would like us to simplify her medication s monitor for improvemen t Falls 491667066 R29.6 PT/OT eval and treat monitor for safety Fibromyalgia 054734864 M 79.7 lyrica 150 mg tid nortryptyl ine 25 mg qd monitor Gastroesop hageal reflux disease without esophagitis 723255116 K21.9 pantoprazo le 40 mg qd monitor for symptoms Depressive disorder 3548 9007 F32.89 bupropion SR 200 mg bid monitor mood psych eval and treat prn Chronic low back pain 27 5178999 M54.5 neurontin 100 mg tid follow with [facility] Asthma 150563938 J45.20 loratadine 10 mg qd alb hfa 90 mcg 2 puffs q 6 hrs prn flovent hfa 110 mcg 1 puff bid monitor respirator y status Anxiety 90854212 F41.1 ativan 0.5 mg tid prn monitor Obesity 095465635 E66.8 monitor Vitamin D deficiency 347 53431 E56.8 vitamin D2 1250 mcg q week monitor levels Non-toxic multinodular goiter 01261085 E04.2 monitor Injury of rotator cuff 799925041 S46.092S 09/12/20 revision-i nitial surgery 07/18/20 meloxicam 15 mg qd tizanidine 4 mg tid prn monitor [id number] Danny Mcarthur MD [address] [address] 11/20/2020 12:24:00 11/23/2020 16:24:02 Vertigo 828406473 R42 see HPI eval by neuro in hospital medication s adjusted monitor on antivert 25 mg tid prn titrate prn question BPV consider liliana maneuver Falls 181000487 R29.6 PT/OT eval and treat monitor for safety Fibromyalgia 699691129 M 79.7 meds adjusted now off celexa monitor for change in presentati on Gastroesop hageal reflux disease without esophagitis 079987621 K21.9 pantoprazo le 40 mg qd monitor for sx relief Depressive disorder 3548 9007 F32.89 monitor with med adjustment s psych to eval prn Chronic low back pain 27 5211694 M54.5 known at baseline given above complaints monitor ability to reduce neurontin Anxiety 47908292 F41.1 stable on ativan see above Obesity 319587807 E66.8 dietary eval Non-toxic multinodular goiter 25940771 E04.2 added to PMH Pain in right knee 28424 76012 64491 M25.561 xray to eval monitor for change Vitamin D deficiency 347 36459 E56.8 maintained on Vit D [id number] SIMRAN LYLE HOUSTON [facility] [address] 11/21/2020 09:08:41 11/24/2020 09:26:16 Osteoarthritis of knee 768279360 M17.11 tylenol prn meloxicam 15 mg qd zanaflex 4 mg q 8 hrs prn nortriptyl ine 25 mg qd lyrica 150 mg tid neurontin 100 mg tid monitor [id number] SIMRAN LYLE HOUSTON [facility] [address] [address] 11/22/2020 08:56:09 11/24/2020 09:35:24 Vertigo 923718444 R42 meclizine 25 mg tid prn work up done in hospital felt to be poly pharmacy-t osiel would like PCP to simplify her medication s follow up with PCP Falls 356604871 R29.6 follow up with PCP Fibromyalgia 974032167 M 79.7 lyrica 150 mg tid nortryptyl ine 25 mg qd follow up with PCP Gastroesop hageal reflux disease without esophagitis 212353503 K21.9 pantoprazo le 40 mg qd follow up with PCP Depressive disorder 3548 9007 F32.89 bupropion SR 200 mg bid follow up with PCP Chronic low back pain 27 1563107 M54.5 neurontin 100 mg tid follow with [facility] Asthma 242655707 J45.20 loratadine 10 mg qd alb hfa 90 mcg 2 puffs q 6 hrs prn flovent hfa 110 mcg 1 puff bid follow up with PCP Anxiety 61340519 F41.1 follow up with PCP Obesity 496559444 E66.8 follow up with PCP Vitamin D deficiency 347 11014 E56.8 vitamin D2 1250 mcg q week on friday follow up with PCP Non-toxic multinodular goiter 56632745 E04.2 follow up with PCP Injury of rotator cuff 728630370 S46.092S 09/12/20 revision-i nitial surgery 07/18/20 meloxicam 15 mg qd tizanidine 4 mg tid prn follow up with PCP [id number] Araceli Mendoza NP [address] [address] 11/20/2023 08:21:31 11/24/2023 11:41:22 Vertigo 994519931 R42 meclizine 25 mg tid prnmonitor orthos q shift x 3 days, then bp dailymonit or for improvemen t [place] 314886579 R29.6 ct, xrays, ekg, labs neg for acute concerns PT/OT eval and treatlabs reviewed and stablemoni tor for safety Fibromyalgia 438488550 M 79.7 nortryptyl ine 25 mg bidlidocai ne patch on in am off in pmsee low back painmonito r Gastroesop hageal reflux disease without esophagitis 460640846 K21.9 pantoprazo le 40 mg qd monitor for symptoms Depressive disorder 3548 9007 F32.89 bupropion SR 200 mg bid monitor mood psych eval and treat prn Chronic low back pain 27 0829940 M54.50 with multiple drug allergiesl idocaine patch dailyflexe ril 10 mg po q 12 hours prn pain/spasm spt ot treat and evalfollow with [facility] outpt prn Asthma 207540351 J45.20 loratadine 10 mg qd monitor respirator y status Anxiety 43243751 F41.1 buspar 10 mg bidmonitor Obesity 500292968 E66.8 monitor weights and supportive aredietici an following Vitamin D deficiency 347 42457 E56.8 vitamin d3 2000 unit daily monitor levels Non-toxic multinodular goiter 85701429 E04.2 monitor Mixed anxi ety and depressive disorder 068684196 F41.8 buspar 10 mg bidbupropr ion 200 mg sr po bidduloxet ine 30 mg cap po bidmonitor Asthenia 62091582 R53.1 pt with weaknesspt ot eval and treatmonit or [id number] Jane Galvan MD [address] [address] 11/21/2023 21:16:22 11/26/2023 09:12:25 Vertigo 104742333 R42 Continue meclizine 25 mg TID prnNeeds PT/OT for strengthen ing, balance, gait training, safety and function.C ontinue fall precaution s.Monitor for safety.Mon pacor orthostati c vitals. Falls 676826105 R29.6 As above. Asthenia 96828216 R53.1 As above. Fibromyalgia 316072339 M 79.7 Continue meds as above and nortryptyl ine 25 mg BID and duloxetine 30 mg BID.Monito r sxs. Gastroesop hageal reflux disease without esophagitis 803800582 K21.9 No current sxs. Continue pantoprazo le 40 mg qd Monitor for GI sxs. Chronic low back pain 27 8050358 M54.51 Failed back syndrome.C ontinue lidocaine patch qd, cyclobenza kyra 10 mg q 12 hrs prn and meds for fibromyalg ia as below.PT/O T eval and tx.F/U with [facility] as outpt Asthma 566048206 J45.20 No recent sxs. Not on inhalers. Continue loratadine 10 mg qd Monitor resp status. Mixed anxi ety and depressive disorder 261385633 F41.8 F32.89 Mood good tonight.Co ntinue Buspar 10 mg BID, buproprion 200 mg BID and duloxetine 30 mg BID.Monito r mood.Consu lt psych prn Obesity 592843497 E66.8 Continue to encourage healthy eating. tician consult Vitamin D deficiency 347 41923 E56.8 Continue cholecalci ferol 2000 IU qd.Monitor levels as outpt Non-toxic multinodular goiter 25638351 E04.2 Last TSH on 10/20/23 was 6.16 [...] [place] Member ID Guarantor Name 11/20/2023 1 [facility] - DOS PRIOR TO 2022 - DUAL ELIGIBLE (MEDICARE REPLACEMENT/ADV ANTAGE - HMO) Latia Mcqueen [id number] Sabrina Mcqueen 11/26/2023 1 [facility] - DOS ON OR AFTER 2022 - MEDICARE ADVANTAGE [place] (MEDICARE REPLACEMENT/ADV ANTAGE - PPO) Sabrina Mcqueen [id number] Sabrina Mcqueen Notes Date Note Type Note [...] pain and swelling with imaging ordered to [facility] significant forgait instabilitydepressionchronic low back paingerdasthmafibromyalgiagait instability admit to facility for continued care and therapy Danny Mcarthur MD [address], [address], [place], [address], [facility] 11/20/2020 12:41:49 11/22/19 21 text/ht ml 64 year old female being seen for a acute rounding visit. Patient had a right knee x=ray for c/o right knee pain that revealed mild tricompartmental osteoarthritis and no acute abnormality. Will continue to monitor for pain. LYLE SANTANA [address], [address], [place], [address], [facility] 11/21/2020 19:43:26 11/23/19 21 text/ht ml A 64 year old female being seen for a discharge summary. 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 LYLE SANTANA [address], [address], [place], [address], [facility] 11/22/2020 13:54:07 11/20/19 24 text/ht ml A 67 year old female being seen for a initial intake note. Medical history of vertigo, falls, fibromyalgia, GERD, depression, chronic low back pain, asthma, anxiety, obesity, vitamin D deficiency, goiter and injury to rotator cuff. Sabrina presented to [facility] ED for evaluation of back pain, nausea, and fell to the ground in her apartment without LOC diagnosised of worsening low back pain, disc herniation, and hx of compression fracture and transferred to [facility] for continued care and rehab on 11/19/23. Her workup conisted of CT head, cr spine lumbar, blood work and ekg all unremarkable for acute fracture. Mild multilevel degernerative endplate spurring with lower lumbar predominant facet arthritis noted. Blood work including troponin unremarkable. She was given a lidocaine patch and flexeril for pain. 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 of note: she was admitted to rehab in 2020 for similar concerns. On exam, Sabrina is seen in sitting up at her bedside in [facility]. She denies any pain, shortness of breath, nausea, dizziness, or chest pain. She is very pleasant and denies any new concerns today. 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 MOLST: DNR/DNI/transfer to hospital, no dialysis, no art nutrition, may use hydration short term Araceli Mendoza, ANTHONY [address], [address], [place], [address], [facility] 11/20/2023 09:11:01 11/21/19 24 text/ht ml This is a 67 yo woman who is here for rehab after an ED visit for a fall with subsequent back pain.She presented to the [facility] ED on 11/17 after a fall which [...] and vitamin D deficiency. Jane Galvan MD [address] [place] [address], [address], [place], [id number], [facility] 11/21/2023 22:52:34 OBGyn Episode No OBEpisode recorded.
--- NOTE | 2025-05-27 08:11 | MHC.PC.OV ---
Vital Signs 05/27/25 08:13 Height 5 ft 6 in Weight 224 lb 2 oz BMI 36.2 BP 138/72 Blood Pressure Location Lt brachial Position Sitting Temp 96.9 F Temp Source Temporal Artery Scan Intake Visit Reasons: [facility] 05/21 Fall Intake Note: Patient is here to follow-up after a visit the emergency department at [facility] on 05/21/25. 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 Accompanied by: POOLROOM/POOLHALL MANAGER Allergies codeine (Tylenol-Codeine #3) Allergy (Intermediate, Verified 05/27/25 08:12) Rash morphine Allergy (Intermediate, Verified 05/27/25 08:12) rash and itching nalbuphine (From Nubain) Allergy (Intermediate, Verified 05/27/25 08:12) Rash oxycodone (Percocet) Allergy (Intermediate, Verified 05/27/25 08:12) Rash propoxyphene (From Darvocet-N 100) Allergy (Intermediate, Verified 05/27/25 08:12) Rash tramadol (Ultram) Allergy (Intermediate, Verified 05/27/25 08:12) Rash ibuprofen (From Motrin) Allergy (Mild, Verified 05/27/25 08:12) RASH montelukast (Singulair) Allergy (Unknown, Verified 05/27/25 08:12) Unknown Tobacco use date assessed: 05/27/25 Fall risk assessment: 2 + Falls in past year Last assessed Fall Risk: 05/27/25 Dental Screening Dental Screen Date: 04/06/25 HPI HPI Comments History of Present Illness Details 69 y/o female patient presents to the clinic for EDF follow-up. She reports that she was evaluated at [facility] on 05/21 after sustaining a mechanical fall. All imaging and labs completed in the ED were unremarkable. Today she complains of right wrist pain and swelling, which she states began after the fall and has persisted. Pain described as aching, worse with movement and lifting. Denies numbness, tingling, weakness, or decreased range of motion of fingers. Denies new trauma since the ED visit. No fevers, chills, or redness. [facility] Medical History (Updated 05/27/25 @ 08:35 by Althea La NP) Strain of right wrist Folliculitis Pure hypercholesterolemia Allergic rhinitis Insomnia Multiple joint pain GERD without esophagitis Vitamin D deficiency Lumbar spondylosis Obesity (BMI 30-39.9) Migraine Primary osteoarthritis of both knees Urinary incontinence Rotator cuff tear, left Depression Asthma Fibromyalgia Non-toxic multinodular goiter Anxiety Surgical History Status post rotator cuff surgery S/P rotator cuff repair Status post right rotator cuff repair (~07/26/18) History of hysterectomy History of cholecystectomy History of laminectomy (~2009) Family History Father Diabetes Mother Medical history unknown Social History Household Members: None Housing: Apartment Do you presently have visiting nurse or other home services: No Alcohol intake: former Patient Tobacco Use Status: Never used Tobacco e-Cigarette/Vaping Use: Never Used Second Hand Smoke Exposure: No service: No Current occupational status: disabled Cognitive needs: Yes (cane) Hearing needs: No Vision needs: Yes (glasses) Questionnaire Thrive Questionnaire Date Thrive assessed: 12/31/24 I am a: Patient What is your living situation today?: I have a steady place to live Within the past 12 months, did the food you bought not last and you didn't have the money to get more?: Often true Within the past 12 months, did you worry whether your food would run out before you got money to buy more?: Often true Do you have trouble paying for medicines?: No Do you have trouble getting transportation to medical appointments?: No Do you have trouble paying your heating and electricity bill?: No Do you have trouble taking care of your child, family member or friend?: No Do you have trouble with day-to-day activities such as bathing, preparing meals, shopping, managing finances, etc.?: Yes Are you currently unemployed and looking for a job?: Yes Are you interested in more education?: No Please select the resources that you would like help with: Food Currently or been in a relationship where the following occur: No concerns reported THRIVE Score: 2 FLACO-7 AMB Questionnaire FLACO-7 Date FLACO - 7 assessed: 01/24/25 Source: Developed by Drs. Lang Pacheco, Kelsey B.W. Filemon Lund and colleagues, with an educational juvenal from [employer]. Review of Systems Const All systems reviewed & are unremarkable except as noted in HPI and below Physical exam (Primary Care) Vital Signs: Last Vital Signs Temp 96.9 F 05/27/25 08:13 BP 138/72 05/27/25 08:13 BMI result Body Mass Index 36.2 Tobacco/Smoking Status: Tobacco use Status Tobacco use date assessed 05/27/25 05/27/25 08:21 Patient Tobacco Use Status Never used Tobacco 05/27/25 08:21 Tobacco use type 11/30/24 12:25 e-Cigarette/Vaping Use Never Used 05/27/25 08:21 Thrive Assessment: Date of Thrive Assessment Date Thrive assessed 12/31/24 05/27/25 08:21 Currently or been in a relationship where the following occur: No concerns reported Const Orientation/consciousness: patient oriented x3 Limitations: language barrier and ambulation with walker Neuro General: patient oriented x3 Extrem Other: Right wrist: [id number] swelling noted over dorsal aspect. Tenderness on palpation over distal radius/ulna region. No obvious deformity. ROM: Limited due to pain, but patient able to flex/extend minimally. Sensation: Intact to light touch throughout hand and fingers. Capillary refill < 2 seconds. Bonderizer Operator strength slightly reduced secondary to discomfort. No erythema or warmth. Coding Level of Care Code Est Pt Level 4 (49700) Diagnoses Strain of right wrist S66.911A Time Spent (min) 20 Assessment & Plan Assessment & Plan (1) Strain of right wrist: Code(s): S66.911A - Strain of unspecified muscle, fascia and tendon at wrist and hand level, right hand, initial encounter Category: Medical Plan: Apply wrist brace/splint for comfort and support. Recommend RICE: rest, ice 15?20 min q2?3h, compression if tolerated, elevation. Analgesia: Acetaminophen or NSAIDs if no contraindications. Educate patient on signs of worsening: increasing pain, numbness, weakness, discoloration ? return sooner if present.
[2025-05-27 08:13] VITALS: BP 138/72; TEMP 36.1; BMI 36.2
== END 2025-05-27 08:34 | disposition home or self-care (01) ==
LOC: HO.HMCH 08:05
PROVIDERS: PCP Internal Medicine; Visit Provider Nurse Practitioner Family
DX: S66.911A Strain of unspecified muscle, fascia and tendon at wrist and hand level, right hand, initial encounter (principal)

== ENCOUNTER → 2025-05-27 08:04 | Outpatient (BNVA) | payer OTHER, SELFPAY | PROVIDERS: PCP Internal Medicine; Visit Provider Nurse Practitioner Family | DX: S66.911A Strain of unspecified muscle, fascia and tendon at wrist and hand level, right hand, initial encounter (principal); W19.XXXA Unspecified fall, initial encounter; Y93.9 Activity, unspecified; Y92.9 Unspecified place or not applicable; Y99.9 Unspecified external cause status | CPT/HCPCS: 99212 ==

== ENCOUNTER 2025-06-07 13:43 | Outpatient (AMB) | payer OTHER, SELFPAY ==
--- NOTE | 2025-06-07 13:46 | MHC.OFFVIS ---
Vital Signs 06/07/25 13:49 Height 5 ft 6 in Weight 225 lb BMI 36.3 BP 121/66 Blood Pressure Location Lt brachial Position Sitting Pulse 105 H Pulse Source Pulse Oximeter Pulse Oximetry (%) 100 Oxygen Delivery Method Room Air Intake Visit Reasons: postlaminaectomy syndrome Intake Note: Pain today 8-03/16 Utility Worker Film Processing Required: Yes Utility Worker Film Processing Language: Process Inspector Name: Daughter Accompanied by: Daughter Allergies codeine (Tylenol-Codeine #3) Allergy (Intermediate, Verified 06/07/25 13:51) Rash morphine Allergy (Intermediate, Verified 06/07/25 13:51) rash and itching nalbuphine (From Nubain) Allergy (Intermediate, Verified 06/07/25 13:51) Rash oxycodone (Percocet) Allergy (Intermediate, Verified 06/07/25 13:51) Rash propoxyphene (From Darvocet-N 100) Allergy (Intermediate, Verified 06/07/25 13:51) Rash tramadol (Ultram) Allergy (Intermediate, Verified 06/07/25 13:51) Rash ibuprofen (From Motrin) Allergy (Mild, Verified 06/07/25 13:51) RASH montelukast (Singulair) Allergy (Unknown, Verified 06/07/25 13:51) Unknown HPI Comments Details: The patient is a 69 year old female presenting for follow-up for chronic low back pain. The patient has a history of L2-L3 lumbar fusion with laminectomy changes more than 17-18 years ago. Since the last visit in August 2024, the patient has experienced multiple falls, with the most recent occurring 2-3 weeks ago. Post-fall workups in the ER have included X-rays and CT scans, which have not shown any fractures or misalignments. Associated symptoms include dizziness, nausea, vomiting, shaking, and leg wobbling with weakness. The patient was previously scheduled for diagnostic bilateral lumbar medial branch blocks but did not attend the appointments on two occasions and the procedure was subsequently cancelled. The patient's current low back pain radiates to both legs down to the heels, with the left side being worse. The patient has tried prednisone trials in the past, which was helpful. Lidocaine patches were prescribed but denied by insurance. Pertinent medical history includes osteopenia noted on a 2022 bone scan, which is an improvement from a previous state of osteoporosis. The patient is not diabetic. The patient has a diagnosis of early dementia per family and a caregiver is now involved in managing medical appointments due to missed appointments in the past. The patient takes multiple medications that can cause drowsiness, including duloxetine, cyclobenzaprine, lorazepam, pregabalin, and trazodone for multiple chronic conditions. Family is concerned for multiple medications and plans to follow up with PCP for medication review. The patient lives alone and uses a walker. The patient has [employer] services for 26 hours per week and attends a day program in the morning. There is a concern about a lack of support at night, as this is when falls have occurred. The patient is on a waiting list for a low-income senior apartment complex closer to family but has been waiting for too long. - Location: Low back pain. - Radiation: Pain radiates to both legs down to the heel, worse on the left side. With straight leg raise, pain radiates from the back, to the buttock, and down the side of the right leg. - Exacerbating factors: Bending forward and leaning backward are both equally painful. Straight leg raise maneuver reproduces pain. - Functional interference: The patient cannot pick items up from the floor. - Affect: The patient's caregiver expresses concern over the number of medications being taken for mental health and pain. - Analgesia: Current medications include pregabalin 150 mg TID, cyclobenzaprine, duloxetine, and trazodone. A previous trial of prednisone was helpful. Insurance denied a prescription for lidocaine patches, and the patient has purchased some over the counter. - Adverse Effects: The patient experiences dizziness, nausea, vomiting, leg wobbling, and drowsiness, which are contributing to multiple falls. These side effects are believed to be caused by current medications. - Activities of Daily Living: The patient lives alone, uses a walker, and is unable to pick items up from the floor. The patient attends a day program and has [employer] services, but has experienced falls at night when alone. - Aberrant Drug Related Behaviors: The patient missed two scheduled procedures for diagnostic injections, which the caregiver attributes to forgetting due to dementia, as the patient was not receiving reminders at the time. PRIOR: Patient presents today for follow up for chronic low back pain. Reports recurrent falls and recent onset right foot tendinopathy. She has pending Podiatry evaluation. Back pain is predominantly axial and discogenic today with limited range of motion with decreased functioning and mobility which also affects her sleep and mood. She lives alone and receives [employer] services. Patient is interested to undergo diagnostic lumbar medial branch blocks as next steps. Denies any recent cough, cold, infection, fever or any other significant changes in medical history since last office visit. PRIOR 10/14/22: Patient is a 66 years old female presents today with ongoing chronic low back pain with bilateral radiculopathies as well as components of SIJ pathology. She was previously seen in this office by Sofia ALVARENGA who offered injection L5-S1 interlaminar ROSARIO with local and fluoroscopy but could not schedule this due to transportation issues. Patient reports worsening axial low back pain that also radiates into her buttocks and into bilateral lower extremities bilaterally. Pain affects her daily activities, functioning, sleep, mood and social interactions. Reports frequent falls due to severe pain. She was seen in ER at [facility] last year to do severe pain exacerbation after a fall while bending over. Patient request to be scheduled for Interlaminar L5-S1 ROSARIO for her radicular pain and if no relief, she will go back to see Dr. Agrawal for surgical re-evaluation. She was last seen by Dr. Agrawal in 02/14/22 and evaluation report is noted in patient's chart. Patient denies any fever, chills, weight loss, abdominal or groin pain, bladder or bowel incontinence or saddle anesthesia. PRIOR 02/13/22 Sofia ALVARENGA: Sabrina returns after 4 years with progressively worsening low back pain. She was previously evaluated by Dr. Gillette who recommended a L5-S1 ROSARIO but patient ended up canceling appointment, as she was having some improvements with PT. Over the past four years she reports that her pain has worsened and has more weakness throughout BLE with associated numbness and tingling in bilateral feet, significantly impacting her ability to function normally. She denies any DM. She again notes improvement s/p L2-L3 laminectomy with Dr. Agrawal in 2017 but due to multiple falls over the years for various reasons, her pain has returned. She has been using OTC medications as well as lyrica and meloxicam with minimal relief. She is interested in discussing any interventional option that may be beneficial. PRIOR: Sabrina presents for initial evaluation of chronic worsening low back and leg pain. She obtained an L2/3 laminectomy in [address] Agrawal for similar pain. Initially the pain improved however a few months after her pain returned despite aggressive physical therapy and medications. A repeat MRI 08/24 did not describe any change. She has not had any repeat injections since her surgery however prior to her surgery the injections did not provide any relief. She described constant burning/squeezing pain emanating from her low back radiating down the posterior aspect of her legs into her feet. Walking exacerbates her pain. Currently nothing seems to improve her symptoms which range in intensity from 6-10/10 which is interfering with ability to perform ADL's with severe declining function leading to depressed mood. She denies any fevers, chills, b/b dysfunction while noting weakness in her legs when her pain intensifies. Sabrina presents with mulitifactorial back and leg pain most likely secondary to PLS and chronic persistent radiculopathy with FAS and MPS overlay. She has trialed all modalities in the past without success. Do to her severe pain I have recommended that we provide once more L5/S1 epidural steroid injection, reinstitute physical therpay, while having her evaluated by behavioral therapy for potential spinal stimulation neuromodulation swhich she will likely need and benefit form based on her prior responses to treatment with her continued functional decline. I discussed and explained in detail all treatment modalities including ROSARIO, spinal cord simulation along with PT and BH evaluation. I provided her with handouts and demonstrated on a spine model. I reviewed all risks, benefits, and intended expectations. I answered all her questions. She will followup 3-4 weeks after her injections to review her response. She is agreeable and wishes to proceed. [facility] Medical History Strain of right wrist Folliculitis Pure hypercholesterolemia Allergic rhinitis Insomnia Multiple joint pain GERD without esophagitis Vitamin D deficiency Lumbar spondylosis Obesity (BMI 30-39.9) Migraine Primary osteoarthritis of both knees Urinary incontinence Rotator cuff tear, left Depression Asthma Fibromyalgia Non-toxic multinodular goiter Anxiety Surgical History Status post rotator cuff surgery S/P rotator cuff repair Status post right rotator cuff repair (~07/26/18) History of hysterectomy History of cholecystectomy History of laminectomy (~2009) Family History Father Diabetes Mother Medical history unknown Social History Household Members: None Housing: Apartment Do you presently have visiting nurse or other home services: No Alcohol intake: former Patient Tobacco Use Status: Never used Tobacco e-Cigarette/Vaping Use: Never Used Second Hand Smoke Exposure: No service: No Current occupational status: disabled Cognitive needs: Yes (cane) Hearing needs: No Vision needs: Yes (glasses) Review of Systems Const All systems reviewed & are unremarkable except as noted in HPI and below Physical Exam Vital Signs: Last Vital Signs Pulse 105 H 06/07/25 13:49 BP 121/66 06/07/25 13:49 Pulse Ox 100 06/07/25 13:49 Oxygen Delivery Method Room Air 06/07/25 13:49 BMI result Body Mass Index 36.3 General: Appears afebrile. Alert and oriented. Mood and affect appropriate. Follows and participates in conversation appropriately. Respiratory effort is unlabored. No cough. Able to transition from sit to stand with assistance. Ambulates with slow, antalgic gait. Uses walker with seat. General: Yes no CVA tenderness Back/Spine/Pelvis Other: Limited lumbar ROM due to pain. Lumbar extension and flexion reproduces moderate to severe pain. Demonstrates 5/5 right and 4/5 left strength of quadriceps bilaterally as well as flexion/dorsiflexion of bilateral feet against resistance. 2+ pedal pulses bilaterally. Straight leg rise with dorsiflexion is positive bilaterally. Diminished DTR bilaterally. Jonathan test, Stinchfield test, Pelvic compression test + bilaterally. Facet loading test + bilaterally. No groin pain with I/E hip rotations. Back: no CVA tenderness and back tenderness Cervical Spine: cervical ROM normal, cervical muscular tenderness and No Cervical spine tenderness Thoracic/Lumbar Spine: thoracic and lumbar spine normal to inspection, Thoracic/lumbar spine scar(s), Lasegue's sign positive bilateral and localized, pain with thoraco-lumbar ROM, paraspinal muscle tenderness, thoraco-lumbar ROM limited, No thoracic spinal tenderness and lumbar spinal tenderness (L4-S1) Pelvis: buttock tenderness (left>right) bilaterally Sacroiliac joints: bilaterally tender to palpation Extrem General: Yes capillary refill normal, Yes no clubbing, cyanosis or edema and Yes no calf tenderness Results Reviewed Results Reviewed: XR LUMBAR SPINE 2-3V -08/18/24 Findings: Normal vertebral body alignment. Redemonstrated posterior decompression and fusion at L2-L3 with bilateral transpedicular screws interconnecting rods and interbody disc spacer. Alignment is stable. No acute fracture. Osteopenia. Multilevel facet arthropathy with intervertebral foraminal narrowing pronounced at L5-S1. IMPRESSION: Chronic changes without acute findings. MRI FINDINGS: Coronal Alignment: Mild mid lumbar levocurvature, stable in appearance. Sagittal Alignment: The lumbosacral spine is anatomically aligned in the sagittal plane, stable from previous study. Lumbosacral Junction: Normal. Vertebral Bodies: Normal height. Disc Spaces and Endplates: Mild disc space height loss asymmetric to the left at L5-S1, with disc desiccation, stable in appearance. Mild degrees of disc desiccation are also noted at L4-L5 and L3-L4, stable in appearance. Disc space heights are well maintained. Interbody fusion at L2-L3, unchanged in appearance. Spinal Canal: Fibrofatty infiltration of the filum terminale between L2 and the sacral dural sac, unchanged in appearance, without significant thickening. Bone Marrow: No significant marrow-replacing process or bone marrow edema. Small benign vertebral hemangioma on the right side of the L1 vertebral body, stable in appearance. Conus Medullaris: Terminates at L1. Morphology and signal is normal. No abnormal enhancement. Intradural Nerve Roots: Within normal limits. No abnormal intradural enhancement. L5-S1: Minor disc bulging noted with a small left inferior foraminal disc-osteophyte complex, stable in appearance with slight flattening of the ventral dural sac, unchanged in appearance. Mild ligamentum flavum thickening and moderate bilateral facet arthropathy is largely stable in appearance, with mild narrowing of the left subarticular recess without significant central spinal canal stenosis, unchanged in appearance. There is mild left-sided neural foraminal stenosis without neural impingement. L4-L5: Mild annular bulging noted with a tiny central annular fissure, stable in appearance. Slight flattening of the dural sac with ligamentum flavum thickening and moderate bilateral facet hypertrophic degenerative changes, similar to the previous exam, with mild narrowing of the subarticular zones bilaterally, stable in appearance. No significant central spinal canal stenosis or neural foraminal compromise. L3-L4: Minor annular bulging again noted with a small inferior foraminal disc protrusion on the left, stable in appearance. Ligamentum flavum thickening and moderate bilateral facet arthropathy noted without significant canal or neural foraminal stenosis. L2-L3: Status post laminectomy and posterior instrumented fusion, similar in appearance to the previous exam with a widely patent canal with dorsal epidural scar tissue, unchanged in appearance. No significant neural foraminal stenosis. L1-L2: No disc bulge or herniation. Facets are partially obscured by pedicle screw artifact. Suspect mild ligamentum flavum thickening and mild facet arthrosis without significant canal or neural foraminal stenosis. T12-L1: No disc bulge or herniation and no significant facet arthrosis, canal or neural foraminal stenosis. T11-T12: Central extruded disc herniation noted with mild cephalad migration, slightly diminished in size from previous exam without spinal cord impingement, canal or neural foraminal stenosis. There is moderate facet arthropathy on the left at T9-T10, stable in appearance which is partially imaged. Paraspinal/Retroperitoneal: The paravertebral soft tissues appear unremarkable. Bilateral adrenal enlargement is noted. See previous CT of the abdomen of 05/02/2020. MR/MR lumbar spine wo/w con IMPRESSION: 1. Status post instrumented fusion at the L2-L3 level with laminectomy changes, with no significant canal or foraminal compromise, stable in appearance. ? 2. Stable discogenic degenerative changes at multiple levels, with stable multilevel bilateral facet arthropathy. Multilevel disc bulging and foraminal disc protrusions are again noted, similar to the previous exam with no significant central spinal canal stenosis. No significant neural foraminal stenosis. No abnormal enhancement within the limitations of the study. Assessment & Plan Assessment & Plan (1) Lumbar spondylosis: Code(s): M47.816 - Spondylosis without myelopathy or radiculopathy, lumbar region Category: Medical (2) Failed back syndrome of lumbar spine: Onset Date: ~04/2021 Code(s): M96.1 - Postlaminectomy syndrome, not elsewhere classified Category: Medical (3) Lumbar radiculopathy, chronic: Code(s): M54.16 - Radiculopathy, lumbar region Category: Medical (4) Repeated falls: Code(s): R29.6 - Repeated falls Category: Medical (5) Lumbar degenerative disc disease: Code(s): M51.369 - Other intervertebral disc degeneration, lumbar region without mention of lumbar back pain or lower extremity pain Category: Medical Plan An urgent MRI of the lumbar spine will be ordered to assess for neural integrity and compression and further evaluate the patient's symptoms of recurrent falls, balance issues, and radiating bilateral leg pain. The treatment plan will be determined based on the MRI findings. If the MRI shows a pinched nerve, a targeted steroid injection will be considered. If the results indicate severe stenosis, a referral will be made to a Neurosurgical team for evaluation. Counseled the patient and caregiver that the patient's current medications, including pregabalin, duloxetine, cyclobenzaprine, and trazodone, and Quviviq 50 Mg Tablet (prescribed by provider in [facility]) can cause drowsiness and increase the risk of falls. Patient and family plans for medication review with PCP. Reviewed fall precautions at home with patient and family. Patient's caregiver plans to contact the patient's [employer] company to request a reevaluation for increased service hours, particularly for nighttime supervision, given the history of falls when the patient is alone and progressively worsening low back pain. Patient reports her PCP, Dr. Soler, is supportive of increasing [employer] hours. All questions and concerns have been answered and patient agreed with the treatment plan. Follow up for MRI results and sooner as needed. Patient was informed and verbally consented to the use of an ambient scribe for clinic note documentation during this visit. Orders: Orders MR lumbar spine wo con Today M47.816 - Spondylosis without myelopathy or radiculopathy, lumbar region, M54.16 - Radiculopathy, lumbar region, M96.1 - Postlaminectomy syndrome, not elsewhere classified, R29.6 - Repeated falls, Z13.820 - Encounter for screening for osteoporosis Coding Level of Care Code Est Pt Level 4 (37482) Complex visit Add On G2211 Diagnoses Lumbar spondylosis M47.816 Failed back syndrome of lumbar spine M96.1 Lumbar radiculopathy, chronic M54.16 Repeated falls R29.6 Lumbar degenerative disc disease M51.369
[2025-06-07 13:49] VITALS: BP 121/66; PULSE 105; O2SAT 100; BMI 36.3
--- OUTSIDE RECORDS SUMMARY | 2025-06-07 15:46 | XMS_ITS | Clinical Summary ---
Author Organization 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 5 Active pantoprazole (PROTONIX) 40 mg EC tablet Take 1 tablet (40 mg total) by mouth 1 (one) time each day before breakfast. 5 Active methocarbamoL (ROBAXIN) 500 mg tablet Take 1 tablet (500 mg total) by mouth 2 (two) times a day if needed for muscle spasms for up to 10 days. 20 tablet 5 Active lidocaine (LIDODERM) 5 % patchIndication s:Lumbar paraspinal muscle spasm Apply 2 patches topically 1 (one) time each day if needed for mild pain (to back as needed). Remove & discard patch within 12 hours or as directed by MD. 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 Thumb pain, right 08/26/2017 Overview (05/18/2024): Last Assessment & Plan: 08/26/2017 - depo-medrol 20 mg injection Encounters Date Type Department Care Team Description 05/21/2025 5:16 PM EST - 05/21/2025 9:04 PM [facility] [address] [place] [phone] Aashish Anaya MD Fall, initial encounter (Primary Dx) Discharge Disposition: Home or Self Care 05/08/2025 11:40 AM EST - 05/08/2025 5:59 PM [facility] [address] [place] [phone] Ava Souza MD Fall initial encounter (Primary Dx); Lumbar paraspinal muscle spasm Discharge Disposition: Home or Self Care 04/30/2025 4:34 PM EDT - 04/30/2025 10:30 PM EDT [facility] [address] [place] [phone] Mook Irizarry MD Zaidi, Mansoor Anwer, MD Major depressive disorder in partial remission, unspecified whether recurrent (CMS/HCC V24) (Primary Dx); Fall, initial encounter; Anxiety; Dizziness; Fibromyalgia; Primary osteoarthritis of right hand; Thumb pain, right Discharge Disposition: Home or Self Care from [...] Sign Reading Time Taken Comments Blood Pressure 122/87 05/21/2025 7:02 PM EST Pulse 99 05/21/2025 7:02 PM EST Temperature 36.6 C (97.9 F) 05/21/2025 7:02 PM EST Respiratory Rate 19 05/21/2025 7:02 PM EST Oxygen Saturation 95% 05/21/2025 7:02 PM EST Inhaled Oxygen Concentration - - Weight 102 kg (225 lb) 05/21/2025 5:23 PM EST Height 167.6 cm (5' 6 ) 05/21/2025 5:23 PM EST Body Mass Index 36.32 05/21/2025 5:23 PM EST Plan of Treatment Health Maintenance Due Date Last Done Comments Zoster Vaccines (1 of 2) 2006 Breast Cancer Screening 09/02/2019 09/02/2017 Colorectal Cancer Screening: Stool Based Tests (FOBT/FIT) 06/09/2022 Medicare Annual Wellness Visit 06/09/2022 Osteoporosis Screening (Bone Density Screening) 06/09/2022 Social Influencers of Health Screening 06/09/2022 Depression Screening 07/07/2024 COVID-19 Vaccine ( - season) 2025 Influenza Vaccine (#1) 2025 2, 04/09/2021, 09/15/2020, [...] Procedure Name Priority Date/Time Associated Diagnosis Comments CT CERVICAL SPINE WO CONTRAST STAT 05/21/2025 7:[address] MAXILLOFACIAL WO CONTRAST STAT 05/21/2025 7:[address] HEAD WO CONTRAST STAT 05/21/2025 7 :21 PM EST XR FINGERS 2+ VIEWS RIGHT STAT 05/21/2025 6:38 PM EST XR KNEE 1-2 VIEWS RIGHT STAT 05/21/2025 6:38 PM EST XR SHOULDER 2+ VIEWS LEFT STAT 05/21/2025 6:38 PM EST ECG ANNOTATED 05/10/2025 XR TOES 2+ VIEWS LEFT STAT 05/08/2025 3:44 PM EST XR SHOULDER 2+ VIEWS LEFT STAT 05/08/2025 3:[address] ABDOMEN PELVIS W CONTRAST STAT 05/08/2025 3:[address] THORACIC SPINE WO CONTRAST STAT 05/08/2025 2:35 PM EST CBC WITH AUTO DIFFERENTIAL STAT 05/08/2025 12:27 PM EST TROPONIN I HIGH SENSITIVITY STAT 05/08/2025 12:27 PM EST COMPREHENSIVE METABOLIC PANEL STAT 05/08/2025 12:27 PM EST CBC AND DIFFERENTIAL STAT 05/08/2025 12:27 PM EST ECG 12-LEAD STAT 05/08/2025 12:21 PM EST ECG ANNOTATED 05/02/2025 MERCEDES URINE CULTURE TUBE Routine 04/30/2025 8:08 PM EDT EXTRA TUBES Routine 04/30/2025 8:08 PM EDT URINALYSIS WITH REFLEX MICROSCOPIC STAT 04/30/2025 8:08 PM EDT URINALYSIS WITH REFLEX MICROSCOPIC STAT 04/30/2025 8:08 PM EDT XR FOOT 3+ VIEWS LEFT STAT 04/30/2025 6:21 PM EDT XR HIP 2-3 VIEWS LEFT STAT 04/30/2025 6:[address] CERVICAL SPINE WO CONTRAST STAT 04/30/2025 6:[address] HEAD WO CONTRAST STAT 04/30/2025 6 :00 PM EDT CBC WITH AUTO DIFFERENTIAL STAT 04/30/2025 5:52 PM EDT CBC AND DIFFERENTIAL STAT 04/30/2025 5:52 PM EDT BASIC METABOLIC PANEL STAT 04/30/2025 5:52 PM EDT ECG 12-LEAD STAT 04/30/2025 5:39 PM EDT LIPID PANEL WITH REFLEX TO DIRECT LDL Routine 11/12/2024 6:15 AM EDT SCR MAMMO BI INCL CAD Routine 09/02/2017 2:11 PM EST Encounter for screening mammogram for malignant neoplasm of breast HEPATITIS C SCREENING Routine 07/18/2015 from Last 3 Months or Most Recently Relevant to Health Maintenance Results * CT Cervical Spine wo Contrast (05/21/2025 7:21 PM EST) Only the most recent of2 resultswithin the time period is included. Anatomical Region Laterality Modality Spine, C-spine Computed Tomogra phy 05/21/2025 7:49 PM EST Impressions 05/21/2025 7:49 PM EST Impression: 1. No cervical vertebral fracture or traumatic malalignment. This document has been electronically signed by: Fernando Hilliard MD on 05/21/2025 19:49:13 Narrative 05/21/2025 7:49 PM EST INDICATION: Fall/Trauma CT cervical spine without contrast Comparison: 04/30/2025 Findings: Normal limited view of the intracranial contents. Soft tissues of the neck reveal a similar-appearing 2.2 cm left thyroid nodule (12; 123). Lung apices are normal. Normal vertebral body alignment. No fractures or dislocations. Cervical degenerative changes are present, most significant at C6-7 level. Procedure Note Fernando Hilliard MD - 05/21/2025 INDICATION: Fall/Trauma CT cervical spine without contrast Comparison: 04/30/2025 Findings: Normal limited view of the intracranial contents. Soft tissues of theneck reveal a similar-appearing 2.2 cm left thyroid nodule (12; 123). Lung apices are normal. Normal vertebral body alignment. No fractures or dislocations. Cervical degenerative changes are present, most significant at C6-7 level. IMPRESSION: Impression: 1. No cervical vertebral fracture or traumatic malalignment. This document has been electronically signed by: Fernando Hilliard MD on 05/21/2025 19:49:13 Aashish Anaya MD IMG CT PROCEDURES Final Result * CT Maxillofacial wo Contrast (05/21/2025 7:21 PM EST) Anatomical Region Laterality Modality Head and Neck Computed Tomogra phy 05/21/2025 7:52 PM EST Impressions 05/21/2025 7:52 PM EST Impression: 1. No maxillofacial fractures. This document has been electronically signed by: Fernando Hilliard MD on 05/21/2025 19:52:58 Narrative 05/21/2025 7:52 PM EST INDICATION: Fall/Trauma CT maxillofacial without contrast Comparison: None Findings: No fractures. Paranasal sinuses and mastoid air cells clear. Orbits normal. Temporomandibular joints intact. Visualized intracranial contents are normal. Soft tissues unremarkable Procedure Note Fernando Hilliard MD - 05/21/2025 INDICATION: Fall/Trauma CT maxillofacial without contrast Comparison: None Findings: No fractures. Paranasal sinuses and mastoid air cells clear. Orbitsnormal. Temporomandibular joints intact. Visualized intracranial contents are normal. Soft tissues unremarkable IMPRESSION: Impression: 1. No maxillofacial fractures. This document has been electronically signed by: Fernando Hilliard MD on 05/21/2025 19:52:58 us Aashish Anaya MD [facility] CT PROCEDURES Final Result * CT Head wo Contrast (05/21/2025 7:21 PM EST) Only the most recent of2 resultswithin the time period is included. Anatomical Region Laterality Modality Head and Neck Computed Tomogra phy 05/21/2025 7:49 PM EST Impressions 05/21/2025 7:49 PM EST Impression: 1. No acute intracranial abnormalities. This document has been electronically signed by: Fernando Hilliard MD on 05/21/2025 19:49:22 Narrative 05/21/2025 7:49 PM EST INDICATION: Fall/Trauma CT head without contrast Comparison: 04/30/2025 Findings: No intracranial mass, midline shift, hydrocephalus, or acute hemorrhage. No CT evidence of acute ischemia. Visualized paranasal sinuses and mastoid air cells normal. Orbits unremarkable. No skull fracture Procedure Note Fernando Hilliard MD - 05/21/2025 INDICATION: Fall/Trauma CT head without contrast Comparison: 04/30/2025 Findings: No intracranial mass, midline shift, hydrocephalus, or acute hemorrhage. No CT evidence of acute ischemia. Visualized paranasal sinuses and mastoid air cells normal. Orbits unremarkable. No skull fracture IMPRESSION: Impression: 1. No acute intracranial abnormalities. This document has been electronically signed by: Fernando Hilliard MD on 05/21/2025 19:49:22 Aashish Anaya MD [facility] CT PROCEDURES Final Result * XR Fingers 2+ Views Right (05/21/2025 6:38 PM EST) Anatomical Region Laterality Modality Upper Extremities, Fingers Right Radio graphic Imaging 05/22/2025 8:19 AM EST Impressions 05/22/2025 8:20 AM EST No visible acute fracture or dislocation right first digit. Degenerative arthritic changes first carpometacarpal and PIP joint. -------- FINAL REPORT -------- Dictated By: Karlos Jones Dictated Date: 05/22/2025 08:19 ET Assigned Physician: Karlos Jones Reviewed and Electronically Signed By: Karlos Jones Signed Date: 05/22/2025 08:20 ET Workstation ID: [id number] Transcribed By: Self Edit Transcribed Date: 05/22/2025 08:19 ET Narrative 05/22/2025 8:20 AM EST Examination:: Right fingers 3 views. CLINICAL INDICATION: Right thumb pain status post fall. COMPARISON: Nothing recent. FINDINGS: There is loss of PIP joint space and first carpometacarpal joint with periarticular spurring. No visible acute fracture or dislocation seen involving the right first digit. The soft tissues are normal. Procedure Note Karlos Jones MD - 05/22/2025 Examination:: Right fingers 3 views. CLINICAL INDICATION: Right thumb pain status post fall. COMPARISON: Nothing recent. FINDINGS: There is loss of PIP joint space and first carpometacarpal jointwith periarticular spurring. No visible acute fracture or dislocation seeninvolving the right first digit. The soft tissues are normal. IMPRESSION: No visible acute fracture or dislocation right first digit. Degenerativearthritic changes first carpometacarpal and PIP joint. -------- FINAL REPORT -------- Dictated By: Karlos Jones Dictated Date: 05/22/2025 08:19 ET Assigned Physician: Karlos Jones Reviewed and Electronically Signed By: Karlos Jones Signed Date: 05/22/2025 08:20 ET Workstation ID: [id number] Transcribed By: Self Edit Transcribed Date: 05/22/2025 08:19 ET Aashish Anaya MD IMG XR PROCEDURES Final Result * XR Knee 1-2 Views Right (05/21/2025 6:38 PM EST) Anatomical Region Laterality Modality Lower Extremities, Knee Right Radiogra phic Imaging 05/22/2025 8:12 AM EST Impressions 05/22/2025 8:14 AM EST Unremarkable right knee exam -------- FINAL REPORT -------- Dictated By: Karlos Jones Dictated Date: 05/22/2025 08:12 ET Assigned Physician: Karlos Jones Reviewed and Electronically Signed By: Karlos Jones Signed Date: 05/22/2025 08:14 ET Workstation ID: [id number] Transcribed By: Self Edit Transcribed Date: 05/22/2025 08:12 ET Narrative 05/22/2025 8:14 AM EST EXAMINATION: Right knee 2 CLINICAL INDICATION: Right knee pain status post fall. COMPARISON: None. FINDINGS: The tricompartmental joint spaces are maintained normal. There is no evidence of acute fracture, dislocation or subluxation. The soft tissues are normal. No joint effusion seen. Procedure Note Karlos Jones MD - 05/22/2025 EXAMINATION: Right knee 2 CLINICAL INDICATION: Right knee pain status post fall. COMPARISON: None. FINDINGS: The tricompartmental joint spaces are maintained normal. Thereis no evidence of acute fracture, dislocation or subluxation. The softtissues are normal. No joint effusion seen. IMPRESSION: Unremarkable right knee exam -------- FINAL REPORT -------- Dictated By: Karlos Jones Dictated Date: 05/22/2025 08:12 ET Assigned Physician: Karlos Jones Reviewed and Electronically Signed By: Karlos Jones Signed Date: 05/22/2025 08:14 ET Workstation ID: [id number] Transcribed By: Self Edit Transcribed Date: 05/22/2025 08:12 ET Aashish Anaya MD IMG XR PROCEDURES Final Result * XR Shoulder 2+ Views Left (05/21/2025 6:38 PM EST) Only the most recent of2 resultswithin the time period is included. Anatomical Region Laterality Modality Upper Extremities, Shoulder Left Radi ographic Imaging 05/22/2025 8:21 AM EST Impressions 05/22/2025 8:23 AM EST Degenerative arthritic changes left shoulder. No visible acute fracture or dislocation. -------- FINAL REPORT -------- Dictated By: Karlos Jones Dictated Date: 05/22/2025 08:21 ET Assigned Physician: Karlos Jones Reviewed and Electronically Signed By: Karlos Jones Signed Date: 05/22/2025 08:23 ET Workstation ID: [id number] Transcribed By: Self Edit Transcribed Date: 05/22/2025 08:21 ET Narrative 05/22/2025 8:23 AM EST EXAMINATION: Left shoulder 2 views. CLINICAL INDICATION: Left shoulder pain status post fall. COMPARISONS: Left shoulder 05/08/2025. FINDINGS: There is no visible acute fracture, dislocation or subluxation seen. Glenohumeral joints and AC joints spaces are reduced likely from degenerative arthritis. The soft tissues are normal. There are surgical screws in left proximal humerus likely from previous rotator cuff repair Procedure Note Karlos Jones MD - 05/22/2025 EXAMINATION: Left shoulder 2 views. CLINICAL INDICATION: Left shoulder pain status post fall. COMPARISONS: Left shoulder 05/08/2025. FINDINGS: There is no visible acute fracture, dislocation or subluxationseen. Glenohumeral joints and AC joints spaces are reduced likely fromdegenerative arthritis. The soft tissues are normal. There are surgicalscrews in left proximal humerus likely from previous rotator cuff repair IMPRESSION: Degenerative arthritic changes left shoulder. No visible acute fracture ordislocation. -------- FINAL REPORT -------- Dictated By: Karlos Jones Dictated Date: 05/22/2025 08:21 ET Assigned Physician: Karlos Jones Reviewed and Electronically Signed By: Karlos Jones Signed Date: 05/22/2025 08:23 ET Workstation ID: [id number] Transcribed By: Self Edit Transcribed Date: 05/22/2025 08:21 ET Aashish Anaya MD IMG XR PROCEDURES Final Result * ECG-Annotated (05/10/2025) Only the most recent of2 resultswithin the time period is included. us Provider Onbase ECG ORDERABLES Final Result * XR Toes 2+ Views Left (05/08/2025 3:44 PM EST) Anatomical Region Laterality Modality Lower Extremities, Toes [facility] 05/08/2025 3:53 PM EST Impressions 05/08/2025 3:58 PM EST Previous surgery. No definite acute fracture or subluxation. Chronic appearing deformity of the scapula is likely unchanged. No fracture or subluxation of the left toes demonstrated -------- FINAL REPORT -------- Dictated By: Uche Dickinson Dictated Date: 05/08/2025 15:53 ET Assigned Physician: Uche Dickinson Reviewed and Electronically Signed By: Uche Dickinson Signed Date: 05/08/2025 15:58 ET Workstation ID: [id number] Transcribed By: Self Edit Transcribed Date: 05/08/2025 15:53 ET Narrative 05/08/2025 3:58 PM EST EXAMINATION: LEFT SHOULDER LEFT TOES CLINICAL INFORMATION: Fall. Pain COMPARISON: Left shoulder 05/18/24 TECHNIQUE: 4 views left shoulder Frontal view left foot, 2 views left toes FINDINGS: Left shoulder: There are surgical anchors associated with the left humeral head. There is smooth corticated lucency through the scapular body. No definite acute fracture. No suspicious abnormality in the visualized portion of the chest. Tiny densities in the axillary or breast soft tissues. Left toes: No acute fracture or subluxation. No focal lesion. Procedure Note Uche Dickinson MD - 05/08/2025 EXAMINATION: LEFT SHOULDER LEFT TOES CLINICAL INFORMATION: Fall. Pain COMPARISON: Left shoulder 05/18/24 TECHNIQUE: 4 views left shoulder Frontal view left foot, 2 views left toes FINDINGS: Left shoulder: There are surgical anchors associated with the left humeral head. There issmooth corticated lucency through the scapular body. No definite acute fracture. No suspicious abnormality in the visualizedportion of the chest. Tiny densities in the axillary or breast softtissues. Left toes: No acute fracture or subluxation. No focal lesion. IMPRESSION: Previous surgery. No definite acute fracture or subluxation. Chronic appearing deformity of the scapula is likely unchanged. No fracture or subluxation of the left toes demonstrated -------- FINAL REPORT -------- Dictated By: Uche Dickinson Dictated Date: 05/08/2025 15:53 ET Assigned Physician: Uche Dickinson Reviewed and Electronically Signed By: Uche Dickinson Signed Date: 05/08/2025 15:58 ET Workstation ID: [id number] Transcribed By: Self Edit Transcribed Date: 05/08/2025 15:53 ET us Ava Souza MD IMG XR PROCEDURES Final Result * CT Abdomen Pelvis w Contrast (05/08/2025 3:29 PM EST) Anatomical Region Laterality Modality Body Computed Tomogra phy 05/08/2025 3:36 PM EST Impressions 05/08/2025 3:46 PM EST No acute abnormality demonstrated. No evidence of solid visceral injury or hemoperitoneum. No acute fracture demonstrated. Prior lumbar instrumentation -------- FINAL REPORT -------- Dictated By: Uche Dickinson Dictated Date: 05/08/2025 15:36 ET Assigned Physician: Uche Dickinson Reviewed and Electronically Signed By: Uche Dickinson Signed Date: 05/08/2025 15:46 ET Workstation ID: [id number] Transcribed By: Self Edit Transcribed Date: 05/08/2025 15:36 ET Narrative 05/08/2025 3:46 PM EST EXAMINATION: CT ABDOMEN/PELVIS WITH IV CONTRAST CLINICAL INFORMATION: Left hip pain. Back pain. Fall COMPARISON: Portions of pelvic CT 11/24/24 TECHNIQUE: Multidetector CT. Helical examination of the abdomen and pelvis. Imaging performed after the IV administration of contrast. Reformatting in the coronal and sagittal planes. DLP: 1818 mGy-cm Dose optimization was performed including the use of low-dose iterative reconstruction technique with automatic exposure control based on patient size. Type of contrast: ISOVUE 370 Volume of IV contrast: 90 mL Volume of contrast discarded: 0 mL FINDINGS: LIVER: Liver contour is smooth. No suspicious focal liver lesion. Tiny low attenuating lesion in the central aspect of the right lobe at the level of the portal vein (3/43) is unchanged since at least 10/07/24 and may represent a cyst. BILIARY TRACT: The gallbladder is not demonstrated and may be surgically absent. There is no biliary dilation. SPLEEN: Spleen is relatively small. There is no evidence of injury. PANCREAS: No evidence of a pancreatic injury or peripancreatic fluid collection. There is some fatty replacement in the pancreatic head neck and body with relative preservation of the density in the tail similar to 10/07/24. ADRENAL GLANDS: Slight nodularity similar to previous October 2024. KIDNEYS: No evidence of renal injury. There is no dilation of the urinary collecting system. The kidneys enhance symmetrically. There is no perinephric collection. There is a probable small cyst in the upper pole of the left kidney unchanged. URINARY BLADDER: The bladder is moderately distended. No evidence of bladder injury. PELVIC VISCERA: The uterus may be surgically absent. There is no suspicious adnexal mass or collection. GASTROINTESTINAL TRACT: Large amount of fecal residue throughout the colon. No localized colonic wall thickening or localized fat stranding. No evidence of active mesenteric hemorrhage. The stomach is not well distended. ABDOMINAL WALL: No significant hernia is appreciated. Evidence of prior surgery. No evidence of abdominal wall hematoma. LYMPHOVASCULAR STRUCTURES AND FLUID: There is no evidence of an abdominal aortic injury. No retroperitoneal hemorrhage. There is no evidence of hemoperitoneum. There is no evidence of pneumoperitoneum. VISUALIZED LOWER CHEST: No evidence of pericardial fluid demonstrated. No pneumothorax in the lower chest. No evidence of lung parenchymal injury. MUSCULOSKELETAL: No acute or suspicious osseous abnormality. Extensive artifact related instrumentation at L2/L3. The hardware appears intact. No paraspinal hematoma. Procedure Note Uche Dickinson MD - 05/08/2025 EXAMINATION: CT ABDOMEN/PELVIS WITH IV CONTRAST CLINICAL INFORMATION: Left hip pain. Back pain. Fall COMPARISON: Portions of pelvic CT 11/24/24 TECHNIQUE: Multidetector CT. Helical examination of the abdomen and pelvis. Imaging performed after the IV administration of contrast. Reformatting in the coronal and sagittal planes. DLP: 1818 mGy-cm Dose optimization was performed including the use of low-dose iterativereconstruction technique with automatic exposure control based on patientsize. Type of contrast: ISOVUE 370 Volume of IV contrast: 90 mL Volume of contrast discarded: 0 mL FINDINGS: LIVER: Liver contour is smooth. No suspicious focal liver lesion. Tiny lowattenuating lesion in the central aspect of the right lobe at the level ofthe portal vein (3/43) is unchanged since at least 10/07/24 and mayrepresent a cyst. BILIARY TRACT: The gallbladder is not demonstrated and may be surgicallyabsent. There is no biliary dilation. SPLEEN: Spleen is relatively small. There is no evidence of injury. PANCREAS: No evidence of a pancreatic injury or peripancreatic fluidcollection. There is some fatty replacement in the pancreatic head neckand body with relative preservation of the density in the tail similar to10/07/24. ADRENAL GLANDS: Slight nodularity similar to previous October 2024. KIDNEYS: No evidence of renal injury. There is no dilation of the urinarycollecting system. The kidneys enhance symmetrically. There is noperinephric collection. There is a probable small cyst in the upper pole of the left kidneyunchanged. URINARY BLADDER: The bladder is moderately distended. No evidence ofbladder injury. PELVIC VISCERA: The uterus may be surgically absent. There is nosuspicious adnexal mass or collection. GASTROINTESTINAL TRACT: Large amount of fecal residue throughout thecolon. No localized colonic wall thickening or localized fat stranding. No evidence of active mesenteric hemorrhage. The stomach is not welldistended. ABDOMINAL WALL: No significant hernia is appreciated. Evidence of priorsurgery. No evidence of abdominal wall hematoma. LYMPHOVASCULAR STRUCTURES AND FLUID: There is no evidence of an abdominalaortic injury. No retroperitoneal hemorrhage. There is no evidence of hemoperitoneum. There is no evidence of pneumoperitoneum. VISUALIZED LOWER CHEST: No evidence of pericardial fluid demonstrated. Nopneumothorax in the lower chest. No evidence of lung parenchymal injury. MUSCULOSKELETAL: No acute or suspicious osseous abnormality. Extensiveartifact related instrumentation at L2/L3. The hardware appears intact. No paraspinal hematoma. IMPRESSION: No acute abnormality demonstrated. No evidence of solid visceral injury orhemoperitoneum. No acute fracture demonstrated. Prior lumbar instrumentation -------- FINAL REPORT -------- Dictated By: Uche Dickinson Dictated Date: 05/08/2025 15:36 ET Assigned Physician: Uche Dickinson Reviewed and Electronically Signed By: Uche Dickinson Signed Date: 05/08/2025 15:46 ET Workstation ID: [id number] Transcribed By: Self Edit Transcribed Date: 05/08/2025 15:36 ET Ava Souza MD IM CT PROCEDURES Final Result * CT Thoracic Spine wo Contrast (05/08/2025 2:35 PM EST) Anatomical Region Laterality Modality Spine, T-spine Computed Tomogra phy 05/08/2025 3:17 PM EST Impressions 05/08/2025 3:26 PM EST No fracture or subluxation of the thoracic spine. No loss of volume. -------- FINAL REPORT -------- Dictated By: Uche Dickinson Dictated Date: 05/08/2025 15:17 ET Assigned Physician: Uche Dickinson Reviewed and Electronically Signed By: Uche Dickinson Signed Date: 05/08/2025 15:26 ET Workstation ID: [id number] Transcribed By: Self Edit Transcribed Date: 05/08/2025 15:17 ET Narrative 05/08/2025 3:26 PM EST EXAMINATION: CT THORACIC SPINE WITHOUT CONTRAST CLINICAL INFORMATION: Fall. Back pain. Fell out of bed. COMPARISON: Selected sagittal reformatted images of the chest 01/30/20 TECHNIQUE: Multidetector CT. Examination of the lumbar spine. Examination of the thoracic spine without IV contrast. Reformatting in the coronal and sagittal planes. DLP: 2121 mGy-cm Dose optimization was performed including the use of low-dose iterative reconstruction technique with automatic exposure control based on patient size. Type of contrast: None Volume of IV contrast: None Volume of contrast discarded: 0 mL FINDINGS: ALIGNMENT: There is no subluxation or dislocation. Trace convex-right lower thoracic curve FRACTURE: There is no acute fracture. FOCAL LESION: There are no suspicious focal lesions. LOSS OF VOLUME: There is no significant loss of volume. CANAL CONTENTS: No large abnormality within the spinal canal. DISC/OSTEOPHYTE: No focal disc abnormality. No significant osteophyte. There is vacuum phenomenon at T9/T10. PARASPINAL SOFT TISSUES: No suspicious abnormality demonstrated in the visualized paraspinal soft tissues. Partially included right adrenal nodule has been present since at least 01/30/20. No significant paraspinal hematoma. OTHER: No other suspicious abnormalities Procedure Note Uche Dickinson MD - 05/08/2025 EXAMINATION: CT THORACIC SPINE WITHOUT CONTRAST CLINICAL INFORMATION: Fall. Back pain. Fell out of bed. COMPARISON: Selected sagittal reformatted images of the chest 01/30/20 TECHNIQUE: Multidetector CT. Examination of the lumbar spine. Examination of the thoracic spine without IV contrast. Reformatting in the coronal and sagittal planes. DLP: 2121 mGy-cm Dose optimization was performed including the use of low-dose iterativereconstruction technique with automatic exposure control based on patientsize. Type of contrast: None Volume of IV contrast: None Volume of contrast discarded: 0 mL FINDINGS: ALIGNMENT: There is no subluxation or dislocation. Trace convex-rightlower thoracic curve FRACTURE: There is no acute fracture. FOCAL LESION: There are no suspicious focal lesions. LOSS OF VOLUME: There is no significant loss of volume. CANAL CONTENTS: No large abnormality within the spinal canal. DISC/OSTEOPHYTE: No focal disc abnormality. No significant osteophyte.There is vacuum phenomenon at T9/T10. PARASPINAL SOFT TISSUES: No suspicious abnormality demonstrated in thevisualized paraspinal soft tissues. Partially included right adrenalnodule has been present since at least 01/30/20. No significant paraspinal hematoma. OTHER: No other suspicious abnormalities IMPRESSION: No fracture or subluxation of the thoracic spine. No loss of volume. -------- FINAL REPORT -------- Dictated By: Uche Dickinson Dictated Date: 05/08/2025 15:17 ET Assigned Physician: Uche Dickinson Reviewed and Electronically Signed By: Uche Dickinson Signed Date: 05/08/2025 15:26 ET Workstation ID: [id number] Transcribed By: Self Edit Transcribed Date: 05/08/2025 15:17 ET us Ava Souza MD [facility] CT PROCEDURES Final Result * Troponin I high sensitivity (05/08/2025 12:27 PM EST) High Sensitivity Troponin I 5 <=54 ng/L LAB CHEMISTRY METHOD 05/08/2025 1:43 PM [facility] Blood Venous blood specimen / Unknown Venipuncture / Unknown 05/08/2025 12:27 PM EST 05/08/2025 1:15 PM EST [facility] - 05/08/2025 1:43 PM EST High levels of biotin in samples may falsely decrease hsTroponin values. Use caution when interpreting hsTroponin results in patients taking biotin who exhibit renal impairment (eGFR <60) or in patients taking more than 20 mg/day of biotin. us Ava Souza MD LAB BLOOD ORDERABLES Final Resul t [facility] [address] [place] [address], [place] [phone] * (ABNORMAL) CBC auto differential (05/08/2025 12:27 PM EST) Only the most recent of2 resultswithin the time period is included. WBC 6.3 4.8 - 10.8 K/mcL LAB HEMETOLOGY METHOD 05/08/2025 1:22 PM [facility] RBC 4.70 3.80 - 4.80 M/mcL LAB HEMETOLOGY METHOD 05/08/2025 1:22 PM [facility] Hemoglobin 13.2 11.5 - 16.0 g/dL LAB HEMETOLOGY METHOD 05/08/2025 1:22 PM [facility] Hematocrit 41.7 35.0 - 47.0 % LAB HEMETOLOGY METHOD 05/08/2025 1:22 PM [facility] MCV 88.5 79.0 - 98.0 FL LAB HEMETOLOGY METHOD 05/08/2025 1:22 PM [facility] MCH 28.0 27.0 - 32.0 pcg LAB HEMETOLOGY METHOD 05/08/2025 1:22 PM [facility] MCHC 31.7(L) 32.0 - 37.0 g/dL LAB HEMETOLOGY METHOD 05/08/2025 1:22 PM [facility] RDW 14.7 11.0 - 15.0 % LAB HEMETOLOGY METHOD 05/08/2025 1:22 PM [facility] Platelets 272 130 - 400 K/mcL LAB HEMETOLOGY METHOD 05/08/2025 1:22 PM [facility] MPV 11.5(H) 7.0 - 11.0 FL LAB HEMETOLOGY METHOD 05/08/2025 1:22 PM [facility] NRBC 0.0 <1.0 % LAB HEMETOLOGY METHOD 05/08/2025 1:22 PM [facility] NRBC Absolute 0.00 <0.10 K/mcL LAB HEMETOLOGY METHOD 05/08/2025 1:22 PM [facility] Neutrophils Relative 58.9 % LAB HEMETOLOGY METHOD 05/08/2025 1:22 PM [facility] Lymphocytes Relative 29.7 % LAB HEMETOLOGY METHOD 05/08/2025 1:22 PM [facility] Monocytes Relative 7.6 % LAB HEMETOLOGY METHOD 05/08/2025 1:22 PM [facility] Eosinophils Relative 2.7 % LAB HEMETOLOGY METHOD 05/08/2025 1:22 PM [facility] Basophils Relative 0.8 % LAB HEMETOLOGY METHOD 05/08/2025 1:22 PM [facility] Immature Granulocytes Relative 0.3 % LAB HEMETOLOGY METHOD 05/08/2025 1:22 PM [facility] Neutrophils Absolute 3.72 1.50 - 7.00 K/mcL LAB HEMETOLOGY METHOD 05/08/2025 1:22 PM [facility] Lymphocytes Absolute 1.88 1.00 - 5.00 K/mcL LAB HEMETOLOGY METHOD 05/08/2025 1:22 PM EST [facility] Monocytes Absolute 0.48 0.20 - 1.00 K/[facility] LAB HEMETOLOGY METHOD 05/08/2025 1:22 PM [facility] Eosinophils Absolute 0.17 0.00 - 0.50 K/[facility] LAB HEMETOLOGY METHOD 05/08/2025 1:22 PM EST [facility] Basophils Absolute 0.05 0.00 - 0.20 K/[facility] LAB HEMETOLOGY METHOD 05/08/2025 1:22 PM [facility] Immature Granulocytes Absolute 0.02 0.00 - 0.03 K/mcL LAB HEMETOLOGY METHOD 05/08/2025 1:22 PM [facility] Blood Venous blood specimen / Unknown Venipuncture / Unknown 05/08/2025 12:27 PM EST 05/08/2025 1:14 PM EST us Ava Souza MD LAB BLOOD ORDERABLES Final Resul t [facility] [address] [place] [address], * (ABNORMAL) Comprehensive Metabolic Panel (CMP) (05/08/2025 12:27 PM EST) Sodium 141 133 - 145 mmol/L LAB CHEMISTRY METHOD 05/08/2025 1:49 PM [facility] Potassium 4.4 3.5 - 5.5 mmol/L LAB CHEMISTRY METHOD 05/08/2025 1:49 PM [facility] Comment:Hemolysis present Chloride 108 96 - 110 mmol/L LAB CHEMISTRY METHOD 05/08/2025 1:49 PM [facility] CO2 29 21 - 32 mmol/L LAB CHEMISTRY METHOD 05/08/2025 1:49 PM [facility] Anion Gap 4 3 - 11 LAB CHEMISTRY METHOD 05/08/2025 1:49 PM [facility] Glucose 171(H) 70 - 100 mg/dL LAB CHEMISTRY METHOD 05/08/2025 1:49 PM [facility] BUN 18 5 - 25 mg/dL LAB CHEMISTRY METHOD 05/08/2025 1:49 PM [facility] Creatinine 0.77 0.50 - 1.10 mg/dL LAB CHEMISTRY METHOD 05/08/2025 1:49 PM [facility] eGFR 84 >=60 mL/min/1. 73m2 LAB CHEMISTRY METHOD 05/08/2025 1:49 PM [facility] Comment:Calculation based on the Chronic Kidney Disease Epidemiology Collaboration (CKD-EPI) equation refit without adjustment for race. BUN/Creatinine Ratio 23.4 LAB CHEMISTRY METHOD 05/08/2025 1:49 PM [facility] Calcium 9.0 8.5 - 10.5 mg/dL LAB CHEMISTRY METHOD 05/08/2025 1:49 PM [facility] AST (SGOT) 18 10 - 42 unit/L LAB CHEMISTRY METHOD 05/08/2025 1:49 PM [facility] Comment:Hemolysis present ALT (SGPT) 18 10 - 60 unit/L LAB CHEMISTRY METHOD 05/08/2025 1:49 PM [facility] Alkaline Phosphatase 88 42 - 121 unit/L LAB CHEMISTRY METHOD 05/08/2025 1:49 PM [facility] Total Protein 7.1 6.0 - 8.0 g/dL LAB CHEMISTRY METHOD 05/08/2025 1:49 PM [facility] Albumin 3.4 3.2 - 5.0 g/dL LAB CHEMISTRY METHOD 05/08/2025 1:49 PM [facility] Total Bilirubin 0.3 0.0 - 1.4 mg/dL LAB CHEMISTRY METHOD 05/08/2025 1:49 PM EST [facility] Blood Venous blood specimen / Unknown Venipuncture / Unknown 05/08/2025 12:27 PM EST 05/08/2025 1:14 PM EST us Ava Souza MD LAB BLOOD ORDERABLES Final Resul t Performing Organization Address City/[facility]/ZIP Co de Phone Number [facility] [address] [place] [address], [place] [phone] * 12-Lead ECG (05/08/2025 12:21 PM EST) Only the most recent of2 resultswithin the time period is included. Ventricular Rate ECG 78 BPM GEMUSE Atrial Rate 78 BPM GEMUSE P-R Interval 194 ms GEMUSE QRS Duration 84 ms GEMUSE Q-T Interval 406 ms GEMUSE QTc 462 ms GEMUSE P Wave [place] 63 degrees GEMUSE R [place] -18 degrees GEMUSE T [place] 41 degrees GEMUSE ECG Interpretation Normal sinus rhythm with sinus arrhythmia Normal ECG When compared with ECG of 30-APR-2025 17:39, No significant change was found Confirmed by SAVI THOMAS ([id number]) on 05/08/2025 6:56:15 PM GEMUSE 05/08/2025 12:2 1 PM EST 05/08/2025 6:56 PM EST us Ava Souza MD ECG ORDERABLES Final Result Performing Organization Address City/[facility] Co de Phone Number GEMUSE * (ABNORMAL) Urinalysis with reflex microscopic (04/30/2025 8:08 PM EDT) Specific [place] Urine 1.026 1.003 - 1.030 LAB URINALYSIS - AUTOMATED METHOD 04/30/2025 8:31 PM EDT [facility] pH, Urine 5.5 5.0 - 8.0 pH LAB URINALYSIS - AUTOMATED METHOD 04/30/2025 8:31 PM EDT [facility] Leukocytes, Urine Small(A) Negative LAB URINALYSIS - AUTOMATED METHOD 04/30/2025 8:31 PM [facility] Nitrite, Urine Negative Negative LAB URINALYSIS - AUTOMATED METHOD 04/30/2025 8:31 PM [facility] Protein, Urine Trace <=Trace mg/dL LAB URINALYSIS - AUTOMATED METHOD 04/30/2025 8:31 PM [facility] Glucose, Urine Negative Negative mg/dL LAB URINALYSIS - AUTOMATED METHOD 04/30/2025 8:31 PM [facility] Ketones, Urine Negative Negative mg/dL LAB URINALYSIS - AUTOMATED METHOD 04/30/2025 8:31 PM [facility] Urobilinogen, Urine 0.2 0.2 - 1.0 mg/dL LAB URINALYSIS - AUTOMATED METHOD 04/30/2025 8:31 PM [facility] Bilirubin, Urine Negative Negative LAB URINALYSIS - AUTOMATED METHOD 04/30/2025 8:31 PM [facility] Blood, Urine Small(A) Negative LAB URINALYSIS - AUTOMATED METHOD 04/30/2025 8:31 PM [facility] RBC, Urine 0.9 0 - 4 /HPF LAB URINALYSIS - AUTOMATED METHOD 04/30/2025 8:31 PM [facility] WBC, Urine 12.6(H) 0 - 4 /HPF LAB URINALYSIS - AUTOMATED METHOD 04/30/2025 8:31 PM [facility] Squamous Epithelial, Urine >100(H) 0 - 60 /LPF LAB URINALYSIS - AUTOMATED METHOD 04/30/2025 8:31 PM [facility] Bacteria, Urine Many(A) Negative /HPF LAB URINALYSIS - AUTOMATED METHOD 04/30/2025 8:31 PM [facility] Hyaline Casts, Urine 3.4(H) 0 - 3 /LPF LAB URINALYSIS - AUTOMATED METHOD 04/30/2025 8:31 PM EDT [facility] Urine Urine specimen obtained by clean catch procedure / Unknown Non-blood Collection / Unknown 04/30/2025 8:08 PM EDT 04/30/2025 8:20 PM EDT Mook Irizarry MD LAB URINE ORDERABLES Final Result Performing Organization Address [facility]/ZIP Co de Phone Number [facility] [address] [place] [address], [place] [phone] * Mercedes urine culture tube (04/30/2025 8:08 PM EDT) Extra Tube Hold for add-ons. 04/30/2025 10:02 PM EDT [facility] Comment:Auto resulted. Urine Urine specimen obtained by clean catch procedure / Unknown 04/30/2025 8:08 PM EDT 04/30/2025 8:20 PM EDT René Jamil MD LAB URINE ORDERABLES Elenita l Result Performing Organization Address [facility]/ZIP Co de Phone Number [facility] [address] [place] [address], [place] [phone] * XR Foot 3+ Views Left (04/30/2025 6:21 PM EDT) Anatomical Region Laterality Modality Lower Extremities, Foot Left Radiogra phic Imaging 04/30/2025 8:13 PM EDT Impressions 04/30/2025 8:14 PM EDT FINDINGS/IMPRESSION: No acute fracture or dislocation. Advanced degenerative changes at the 1st metatarsophalangeal joint. Small plantar calcaneal spur. No focal soft tissue swelling -------- FINAL REPORT -------- Dictated By: NIR RILEY Dictated Date: 04/30/2025 20:13 ET Assigned Physician: NIR RILEY Reviewed and Electronically Signed By: NIR RILEY Signed Date: 04/30/2025 20:14 ET Workstation ID: [id number] Transcribed By: Self Edit Transcribed Date: 04/30/2025 20:13 ET Narrative 04/30/2025 8:14 PM EDT XR FOOT 3+ VIEWS LEFT INDICATION: Pain TECHNIQUE: XR FOOT 3+ VIEWS LEFT COMPARISON: No priors available. Procedure Note Nir Riley MD - 04/30/2025 XR FOOT 3+ VIEWS LEFT INDICATION: Pain TECHNIQUE: XR FOOT 3+ VIEWS LEFT COMPARISON: No priors available. IMPRESSION: FINDINGS/IMPRESSION: No acute fracture or dislocation. Advanceddegenerative changes at the 1st metatarsophalangeal joint. Small plantarcalcaneal spur. No focal soft tissue swelling -------- FINAL REPORT -------- Dictated By: NIR RILEY Dictated Date: 04/30/2025 20:13 ET Assigned Physician: NIR RILEY Reviewed and Electronically Signed By: NIR RILEY Signed Date: 04/30/2025 20:14 ET Workstation ID: [id number] Transcribed By: Self Edit Transcribed Date: 04/30/2025 20:13 ET us Mook Irizarry MD IMG XR PROCEDURES Final Res ult * XR Hip 2-3 Views Left (04/30/2025 6:21 PM EDT) Anatomical Region Laterality Modality Lower Extremities, Hip Left Radiograp hic Imaging 04/30/2025 8:07 PM EDT Impressions 04/30/2025 8:07 PM EDT FINDINGS/IMPRESSION: No acute fracture or dislocation. Mild degenerative changes at the hips. No focal soft tissue swelling. Lumbar fusion hardware and levoconvex lumbar scoliosis noted. Degenerative changes noted in lower lumbar facet joints. -------- FINAL REPORT -------- Dictated By: NIR RILEY Dictated Date: 04/30/2025 20:07 ET Assigned Physician: NIR RILEY Reviewed and Electronically Signed By: NIR RILEY Signed Date: 04/30/2025 20:07 ET Workstation ID: [id number] Transcribed By: Self Edit Transcribed Date: 04/30/2025 20:07 ET Narrative 04/30/2025 8:07 PM EDT XR HIP 2-3 VIEWS LEFT INDICATION: Pain, fall TECHNIQUE: XR HIP 2-3 VIEWS LEFT COMPARISON: No priors available. Procedure Note Nir Riley MD - 04/30/2025 XR HIP 2-3 VIEWS LEFT INDICATION: Pain, fall TECHNIQUE: XR HIP 2-3 VIEWS LEFT COMPARISON: No priors available. IMPRESSION: FINDINGS/IMPRESSION: No acute fracture or dislocation. Mild degenerativechanges at the hips. No focal soft tissue swelling. Lumbar fusionhardware and levoconvex lumbar scoliosis noted. Degenerative changesnoted in lower lumbar facet joints. -------- FINAL REPORT -------- Dictated By: NIR RILEY Dictated Date: 04/30/2025 20:07 ET Assigned Physician: NIR RILEY Reviewed and Electronically Signed By: NIR RILEY Signed Date: 04/30/2025 20:07 ET Workstation ID: [id number] Transcribed By: Self Edit Transcribed Date: 04/30/2025 20:07 ET us Mook Irizarry MD IMG XR PROCEDURES Final Res ult * (ABNORMAL) Basic metabolic panel (04/30/2025 5:52 PM EDT) Sodium 139 133 - 145 mmol/L LAB CHEMISTRY METHOD 04/30/2025 6:24 PM EDT [facility] Potassium 3.9 3.5 - 5.5 mmol/L LAB CHEMISTRY METHOD 04/30/2025 6:24 PM EDT [facility] Chloride 104 96 - 110 mmol/L LAB CHEMISTRY METHOD 04/30/2025 6:24 PM EDT [facility] CO2 32 21 - 32 mmol/L LAB CHEMISTRY METHOD 04/30/2025 6:24 PM T [facility] Anion Gap 3 3 - 11 LAB CHEMISTRY METHOD 04/30/2025 6:24 PM EDT [facility] Glucose 133(H) 70 - 100 mg/dL LAB CHEMISTRY METHOD 04/30/2025 6:24 PM EDT [facility] BUN 22 5 - 25 mg/dL LAB CHEMISTRY METHOD 04/30/2025 6:24 PM EDT [facility] Creatinine 0.67 0.50 - 1.10 mg/dL LAB CHEMISTRY METHOD 04/30/2025 6:24 PM EDT [facility] eGFR 95 >=60 mL/min/1. 73m2 LAB CHEMISTRY METHOD 04/30/2025 6:24 PM EDT [facility] Comment:Calculation based on the Chronic Kidney Disease Epidemiology Collaboration (CKD-EPI) equation refit without adjustment for race. BUN/Creatinine Ratio 32.8 LAB CHEMISTRY METHOD 04/30/2025 6:24 PM EDT [facility] Calcium 9.4 8.5 - 10.5 mg/dL LAB CHEMISTRY METHOD 04/30/2025 6:24 PM EDT [facility] Blood Venous blood specimen / Unknown Venipuncture / Unknown 04/30/2025 5:52 PM EDT 04/30/2025 5:55 PM EDT us Mook Irizarry MD LAB BLOOD ORDERABLES Final Result [facility] [address] [place] [address], * (ABNORMAL) Lipid panel with reflex to direct LDL (11/12/2024 6:15 AM EDT) Cholesterol 203(H) 0 - 200 mg/dL LAB CHEMISTRY METHOD 11/12/2024 8:03 AM EDT [facility] Triglycerides 80 0 - 150 mg/dL LAB CHEMISTRY METHOD 11/12/2024 8:03 AM EDT [facility] HDL 71 >=40 mg/dL LAB CHEMISTRY METHOD 11/12/2024 8:03 AM EDT [facility] LDL Calculated 116(H) 0 - 100 mg/dL LAB CHEMISTRY METHOD 11/12/2024 8:03 AM EDT [facility] VLDL Cholesterol Randy 16 mg/dL LAB CHEMISTRY METHOD 11/12/2024 8:03 AM EDT [facility] Non HDL Chol. (LDL+VLDL) 132 <145 mg/dL LAB CHEMISTRY METHOD 11/12/2024 8:03 AM EDT [facility] Chol/HDL Ratio 2.9 0.0 - 4.4 LAB CHEMISTRY METHOD 11/12/2024 8:03 AM EDT [facility] Blood Venous blood specimen / Unknown Venipuncture / Unknown 11/12/2024 6:15 AM EDT 11/12/2024 6:58 AM EDT us Jojo GREENWOOD LAB BLOOD ORDERABLES Final Re sult [facility] [address] [place] [address], [place] [phone] * SCR MAMMO BI INCL CAD (09/02/2017 [...] Most Recently Relevant to Health Maintenance Insurance [facility] [employer] Member Subscriber Plan / Payer (Ef fective 2022-Present) Name:SABRINA MCQUEEN Relation to Subscriber:Self Name:Sabrina Mcqueen Payer ID:[id number] Group ID:[id number] Type:Not on file Address: [address] [id number] Advance Directives Documents on File Type Date Recorded 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 Care Teams Pupil Personnel Worker Relationship Specialty Start Date End Date Henrique Soler MD [address] [place] [address] Dr [address] [place], [place] PCP - General Internal Medicine 06/18/14
== END 2025-06-07 14:11 | disposition home or self-care (01) ==
LOC: HO.PMC 13:44
PROVIDERS: PCP Internal Medicine; Visit Provider Nurse Practitioner Family
DX: M47.816 Spondylosis without myelopathy or radiculopathy, lumbar region (principal); M96.1 Postlaminectomy syndrome, not elsewhere classified; M54.16 Radiculopathy, lumbar region; R29.6 Repeated falls; M51.369 Other intervertebral disc degeneration, lumbar region without mention of lumbar back pain or lower extremity pain
CPT/HCPCS: 99214; G2211

== ENCOUNTER → 2025-06-07 13:43 | Outpatient (BNVA) | payer OTHER, SELFPAY | PROVIDERS: PCP Internal Medicine; Visit Provider Nurse Practitioner Family | DX: M47.26 Other spondylosis with radiculopathy, lumbar region (principal); M96.1 Postlaminectomy syndrome, not elsewhere classified; R29.6 Repeated falls; G89.29 Other chronic pain; Z79.899 Other long term (current) drug therapy; M51.16 Intervertebral disc disorders with radiculopathy, lumbar region | CPT/HCPCS: 99212 ==

== ENCOUNTER 2025-06-16 15:15 | Outpatient (AMB) | payer OTHER, SELFPAY ==
[2025-06-16 15:19] VITALS: BMI 36.3
--- NOTE | 2025-06-16 15:19 | A.OFFVIS_ITS ---
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: No Accompanied by: SERVICES COORDINATOR Allergies codeine (Tylenol-Codeine #3) Allergy (Intermediate, Verified 06/16/25 15:23) Rash morphine Allergy (Intermediate, Verified 06/16/25 15:23) rash and itching nalbuphine (From Nubain) Allergy (Intermediate, Verified 06/16/25 15:23) Rash oxycodone (Percocet) Allergy (Intermediate, Verified 06/16/25 15:23) Rash propoxyphene (From Darvocet-N 100) Allergy (Intermediate, Verified 06/16/25 15:23) Rash tramadol (Ultram) Allergy (Intermediate, Verified 06/16/25 15:23) Rash ibuprofen (From Motrin) Allergy (Mild, Verified 06/16/25 15:23) RASH montelukast (Singulair) Allergy (Unknown, Verified 06/16/25 15:23) Unknown HPI HPI follow up 04/19/25: Details: Very pleasant 61-year-old female presents for follow-up regarding venous insufficiency. Reports in general lower extremities have improved. There is less swelling. She has been compliant with compression. She now presents for follow-up with venous insufficiency testing [facility] Medical History Strain of right wrist Folliculitis Pure hypercholesterolemia Allergic rhinitis Insomnia Multiple joint pain GERD without esophagitis Vitamin D deficiency Lumbar spondylosis Obesity (BMI 30-39.9) Migraine Primary osteoarthritis of both knees Urinary incontinence Rotator cuff tear, left Depression Asthma Fibromyalgia Non-toxic multinodular goiter Anxiety Surgical History Status post rotator cuff surgery S/P rotator cuff repair Status post right rotator cuff repair (~07/26/18) History of hysterectomy History of cholecystectomy History of laminectomy (~2009) Family History Father Diabetes Mother Medical history unknown Social History Household Members: None Housing: Apartment Do you presently have visiting nurse or other home services: No Alcohol intake: former Patient Tobacco Use Status: Never used Tobacco e-Cigarette/Vaping Use: Never Used Second Hand Smoke Exposure: No service: No Current occupational status: disabled Cognitive needs: Yes (cane) Hearing needs: No Vision needs: Yes (glasses) Review of Systems Const All systems reviewed & are unremarkable except as noted in HPI and below Reports no additional complaints ENT Reports Normal hearing present Card Denies chest pain, Denies chest pain at rest, Denies chest pain with activity and Denies pedal edema Resp Denies cough GI Denies abdominal pain Musc Denies abnormal gait, Denies muscle cramps and Denies radiating pain into limb Skin/Breast Denies skin ulcer and Denies wounds Neuro Reports Normal hearing present and Denies abnormal gait Psych Reports no additional complaints Physical Exam Vital Signs: BMI result Body Mass Index 36.3 Const General: cooperative, healthy appearing and comfortable Orientation/consciousness: oriented to person, oriented to place and oriented to time HEENT Head: Yes normal to inspection Neck Neck: Yes normal visual inspection Carotids: no bruits Chest Chest palpation & inspection: normal inspection of the chest Resp Effort & Inspection: normal respiratory effort and able to speak in complete sentences Auscultation: clear to auscultation bilaterally, no crackles, no rales, no rhonchi and no wheezes Cardio Rate: regular rate Rhythm: regular rhythm Heart sounds: S1 normal heart sound present and S2 normal heart sound present Bruits: no carotid bruits Peripheral pulses: Peripheral pulses 2+ throughout GI Inspection: Yes normal to inspection Skin Wounds: no wounds Hair: normal Neuro General: oriented to person, oriented to place and oriented to time Cranial nerves: Yes CN's II-XII intact bilaterally and Yes Normal hearing present Cognition (Neuro): normal cognition Motor exam (neuro): 5/5 motor strength present throughout Extrem Other: venous exam: +1 edema General: No clubbing, No cyanosis and Yes edema Psych Appearance: grossly normal Mental Status: mental status grossly normal Speech and movement: Normal speech and movement present Results Reviewed Results Reviewed: Brief summary of venous insufficiency testing is as follows: right great saphenous vein: negative right small saphenous vein: negative right accessory vein: none present left great saphenous vein: negative left small saphenous vein: negative left accessory vein: none present Please note there is no evidence of any venous aneurysms or significant tortuosity Assessment & Plan Assessment & Plan (1) Varicose veins of right lower extremity with inflammation: Code(s): I83.11 - Varicose veins of right lower extremity with inflammation Category: Medical Plan: In short patient is negative for any significant venous insufficiency. We did discuss the findings with the patient. We did discuss routine conservative measures including compression, elevation, exercise. Patient will follow up with us on an as-needed basis. Thank you for allowing us to assist in this patient's care. If there are any questions or concerns please do not hesitate to contact us. Coding Level of Care Code Est Pt Level 4 (65400) Diagnoses Varicose veins of right lower extremity with inflammation I83.11
--- OUTSIDE RECORDS SUMMARY | 2025-06-16 22:51 | XMS_ITS | Data Portability ---
Author Organization [facility], Main Office Address [address], [address] [place] [address] Care Team Providers Care Manager Commercial Sales Name Role Phone BLAZE PATTEN Primary Care Provider [phone] [facility] - 2ND FLOOR OTHER Assessment Encounter Date Assessment Date Assessment LastModified by Organization Details LastModified Time 11/22/2020 11/22/2020 11/21/20 WBC 5.5, Hgb 13, Hct 40.7, Plt 278, Na 141, K 4.6, BUN 11, Engineering Assistant 0.72, karri 8.8 11/15/20 WBC 5.4, Hgb 13.2, Hct 41.3, Plt 291, Na 138, K 4.3, BUN 17, Engineering Assistant 1.06, karri 8.6, tot prot 6.9, alb 3.2, tot bili 0.2, AST 19, ALT 24, alk phos 125 [email or web address] Not available 11/22/2020 10:14:01 11/20/2023 11/20/2023 11/15/20 WBC 5.4, Hgb 13.2, Hct 41.3, Plt 291, Na 138, K 4.3, BUN 17, Engineering Assistant 1.06, karri 8.6, tot prot 6.9, alb 3.2, tot bili 0.2, AST 19, ALT 24, alk phos 125 Not available 11/20/2023 08:21:55 11/21/2023 11/21/2023 11/15/20 WBC 5.4, Hgb 13.2, Hct 41.3, Plt 291, Na 138, K 4.3, BUN 17, Engineering Assistant 1.06, karri 8.6, tot prot 6.9, alb [...] and Address Organization Details Recorded Time Falls 427200991 Active 2020 LYLE SANTANA [address], [address], [place], [address], [facility] 1 09:16:33 Injury of rotator cuff 538168819 Active 2020 LYLE SANTANA [address], [address], [place], [address], [facility] 1 09:17:03 Anxiety 47907381 Active 2020 LYLE SANTANA [address], [address], [place], [address], [facility] 1 09:19:26 Asthma 489838418 Active 2020 LYLE SANTANA [address], [address], [place], [address], [facility] 1 09:19:37 Depressive disorder 89640654 Active 2020 LYLE SANTANA [address], [address], [place], [address], [facility] 1 09:19:46 Fibromyalgia 789102843 Active 2020 LYLE SANTANA [address], [address], [place], [address], [facility] 1 09:19:57 Chronic low back pain 002978439 Active 2020 LYLE SANTANA [address], [address], [place], [address], [place] [facility] 1 09:23:26 Non-toxic multinodular goiter 17039026 Active 2020 LYLE SANTANA [address], [address], [place], [address], [facility] 1 09:31:03 Gastroesophage al reflux disease without esophagitis 033054660 Active 2020 LYLE SANTANA [address], [address], [place], [address], [facility] 1 17:45:05 Vitamin D deficiency 59533415 Active 2020 LYLE SANTANA [address], [address], [place], [address], [facility] 1 17:50:09 Obesity 695079620 Active 2020 Danny Mcarthur MD [address], [place], [address], [facility] 1 10:03:21 Vertigo 618446647 Active 2020 LYLE SANTANA [address], [address], [place], [address], [facility] 22:04:34 Osteoarthritis of knee 694237504 Active 2020 LYLE SANTANA [address], [address], [place], [address], [facility] 1 09:11:19 Asthenia 26251729 Active 2023 Araceli Mendoza NP [address], [address], [place], [address], [facility] 4 08:59:56 Problem Notes None recorded. Procedures Surgical History Date Name Laterality Status Provider Name and Address Organization Details Recorded Time 07/18/19 21 complete repair of rotator cuff completed LYLE SANTANA [address], [address], [place], [address], [facility] 09/15/2020 17:42:10 cholecystectomy completed SIMRAN HOUSTON, GRAPHIC COORDINATOR [address], [address], [place], [address], [facility] 09/15/2020 09:26:25 Hysterectomy completed SIMRAN HOUSTON, GRAPHIC COORDINATOR [address], [address], [place], [address], [facility] 09/15/2020 09:28:09 laminectomy completed SIMRAN HOUSTON, GRAPHIC COORDINATOR [address], [place], [address], [facility] 09/15/2020 09:29:37 Imaging Results None recorded. Procedure Notes None recorded. Medical Equipment None Reported. Allergies Allergen ID Allergen Name Allergen Category Reaction Reaction Severity Criticality Documentation Date Start Date Code Code System Note Provider Name and Address Organization Details Recorded Time 62348 codeine medicatio n rash Not available Not available 09/15/2020 2670 RxNorm SIMRAN HOUSTON, GRAPHIC COORDINATOR [address], [address], [place], [address], [facility] 09:07:10 35046 morphine medicatio n rash Not available Not available 09/15/2020 7052 RxNorm SIMRAN HOUSTON, GRAPHIC COORDINATOR [address], [address], [place], [address], [facility] 09:07:28 75685 Nubain medicatio n rash Not available Not available 09/15/2020 7550 RxNorm SIMRAN HOUSTON, GRAPHIC COORDINATOR [address], [address], [place], [address], [facility] 09:07:44 93746 oxycodone medicatio n rash Not available Not available 09/15/2020 7804 RxNorm SIMRAN HOUSTON, GRAPHIC COORDINATOR [address], [place], [address], [facility] 09:08:42 29846 propoxyph leonel medicatio n rash Not available Not available 09/15/2020 8785 RxNorm SIMRAN HOUSTON, GRAPHIC COORDINATOR [address], [address], [place], [address], [facility] 1 09:09:13 80028 Ultram medicatio n rash Not available Not available 09/15/2020 41878 6 RxNorm SIMRAN HOUSTON, GRAPHIC COORDINATOR [address], [address], [place], [address], [facility] 1 09:09:31 52720 ibuprofen medicatio n rash Not available Not available 09/15/2020 5640 RxNorm SIMRAN HOUSTON, GRAPHIC COORDINATOR [address], [address], [place], [address], [facility] 1 09:09:48 61517 Singulair medicatio n Not available Not available Not available 09/15/2020 37187 9 RxNorm SIMRAN HOUSTON, GRAPHIC COORDINATOR [address], [address], [place], [address], [facility] 1 09:09:57 [address] [facility] [address] medicatio n Not available Not available unabletoasse 11/20/2023 07963 RxNorm Araceli Mendoza NP [address], [address], [place], [address], [facility] 4 08:27:44 76999 acetamino phen medicatio n other Not available unabletoasse 11/20/2023 161 RxNorm unkno wn Araceli Mendoaz NP [address], [address], [place], [address], [facility] 4 08:28:06 87953 [employer] philip medicatio n other Not available unabletoasse 11/20/2023 3423 RxNorm Araceli Mendoza NP [address], [address], [place], [address], [facility] 4 08:28:54 Vitals Date Recorded Body weight Heart rate Respiratory rate Body temperature Oxygen saturation Systolic And Diastolic Provider Name and Address Organization Details Last Updated DateTime 4 60936.4 g 64 /min 18 /min 96 [degF] 95 % 113/72 mm[Hg] Araceli Mendoza NP [address], [address], [place], [address], [facility] 4 08:22:52 Date Recorded Systolic And Diastolic Provider Name and Address Organization Details Last Updated DateTime 11/20/2020 133/69 mm[Hg] Danny Mcarthur MD [address], [address], [place], [address], [facility] 11/20/2020 12:24:49 Date Recorded Body weight Body mass index (BMI) Body height Heart rate Respiratory rate Body temperature Oxygen saturation Systolic And Diastolic Provider Name and Address Organization Details Last Updated DateTime 4 48905.1 9 g 34 kg/m2 167.64 cm 80 /min 18 /min 97.5 [degF] 93 % 124/78 mm[Hg] Jane Galvan MD [address], [address], [place], [address], [facility] 4 21:22:27 Date Recorded Oxygen saturation Body temperature Body weight Provider Name and Address Organization Details Last Updated DateTime 11/21/2020 99 % 97.8 [degF] 037377.94 g LYLE SANTANA [address], [address], [place], [address], [facility] 11/21/2020 19:41:18 Date Recorded Heart rate Respiratory rate Body temperature Oxygen saturation Provider Name and Address Organization Details Last Updated DateTime 11/22/2020 69 /min 15 /min 98.2 [degF] 99 % LYLE SANTANA [address], [address], [place], [address], [facility] 1 10:24:20 Social History Question Answer Notes LastModified by Organizat ion Details LastModified Time Tobacco Smoking Status Never Smoker LYLE SANTANA [address], [address], [place], [address], [facility] 09/15/2020 09:37:52 Do You Have An [...] Do You Have A Medical Power Of International Manager? Yes Information not available 11/21/2023 What Was [...] Time Tdap 6 completed Krystal Galindo [facility], [facility] 11/20/2023 15:57:00 Tdap 7 completed Krystal Galindo [facility] 11/20/2023 15:57:07 Pneumococcal conjugate PCV 13 1 completed Krystal Galindo [facility] 11/20/2023 15:57:56 pneumococcal polysaccharide PPV23 5 completed Krystal [facility] 11/20/2023 15:58:14 influenza, unspecified formulation 2 completed [facility] 11/20/2023 15:58:35 Past Encounters Encounter ID Performer Location Encounter Start Date Encounter Closed Date Diagnosis/Indication Diagnosis SNOMED-CT Code Diagnosis ICD10 Code Diagnosis IMO Codes Diagnosis Note [id number] LYLE SANTANA [address] [address] 09/15/2020 09:05:35 09/19/2020 11:31:05 Falls 738689020 R29.6 PT/OT eval and treatmonit or for safety Injury of rotator cuff 694371746 S46.092S 09/12/20 revision-i nitial surgery 07/18/20wea r sling at all timespendu lums tidno liftingelb ow and wrist ROM okmeloxica m 15 mg qdtizanidi ne 4 mg tidadded methocarba mol 750 mg tid prn as she states this has worked better beforefoll ow up with ortho in 2 weeks (Dr Maharaj) Anxiety 42575613 F41.1 ativan 0.5 mg tid prndiscuss ed risk vs benefit of ativan with ptmonitor anxietypsy ch eval and treat prn Asthma 509256734 J45.20 loratadine 10 mg qdalb hfa 90 mcg 2 puffs q 6 hrs prnmonitor for symptoms Depressive disorder 8168 9007 F32.89 citalopram 20 mg qdbupropio n SR 200 mg bid discussed risk vs benefit of citalopram and bupropion with ptmonitor mood Fibromyalgia 331721470 M 79.7 lyrica 150 mg tidnortrip tyline 25 mg bid discussed risk vs benefit of lyrica and nortriptyl ine with ptmonitor pain Chronic low back pain 27 0944805 M54.5 see above Non-toxic multinodular goiter 20491366 E04.2 noted in historymon itor Gastroesop hageal reflux disease without esophagitis 180990835 K21.9 pantoprazo le 40 mg qdmonitor for symptoms Vitamin D deficiency 347 28863 E56.8 vitamin D2 44788 units q weekmonito r levels [id number] SIMRAN HOUSTON, LYLE [facility] [address] [address] 09/18/2020 09:18:52 09/22/2020 08:57:21 Injury of rotator cuff 011698033 S46.092S 09/12/20 revision-i nitial surgery 07/18/20wea r sling at all timespendu lums tidno liftingelb ow and wrist ROM okmeloxica m 15 mg qdtizanidi ne 4 mg tid-will discontinu e as she states her methocarba mol works bettermeth ocarbamol 750 mg tid prnfollow up with ortho in 2 weeks (Dr Mahaarj)- appt she is asking for a showerunab le to take shower due to covid isolation for 14 days Falls 992195085 R29.6 PT/OTmonit or for safety [id number] Danny Mcarthur MD [address] [address] 09/20/2020 09:45:42 09/22/2020 09:10:40 Falls 023245506 R29.6 PT/OT eval and treat monitor fall risk Injury of rotator cuff 666688092 S46.092S see HPI now s/p revision right rotator cuff surgery with initial completed in Jul 2020 follow surgery recs PT OT eval and treat monitor for pain control update surgery with concerns Anxiety 34671356 F41.1 see above monitor ativan utilizatio n psych eval prn Depressive disorder 8538 9007 F32.89 celexa 20 mg qd wellbutrin SR 200 mg bid continue out patient dose monitor for change in mood psych eval prn Fibromyalgia 089190082 M 79.7 see above maintained on lyrica and tricyclic antidepres gissel monitor for effect avoid opioids as able Chronic low back pain 27 6904335 M54.5 lyrica 150 mg tid continued monitor for effect Non-toxic multinodular goiter 48850079 E04.2 added to PMH Gastroesop hageal reflux disease without esophagitis 769059071 K21.9 pantoprazo le 40 mg qd monitor for sx relief Vitamin D deficiency 347 53656 E56.8 maintained on Vit D Obesity 809253429 E66.09 dietary eval [id number] LYLE SANTANA [facility] [address] [address] 09/25/2020 08:48:52 09/28/2020 12:59:06 Chronic low back pain 064213725 M54.5 states legs give out history of previous surgery appt made at [facility] on October 05, 2020 patient and PT/OT agrees with this Fibromyalgia 694802050 M 79.7 lyrica 150 mg tid nortriptyl ine 25 mg bid monitor pain [id number] LYLE SANTANA [facility] [address] [address] 10/02/2020 08:43:59 10/04/2020 13:00:56 Injury of rotator cuff 645916021 S46.092S 09/12/20 revision-i nitial surgery 07/18/20 wear sling at all times pendulums tid no lifting PROM/AROM- no strength meloxicam 15 mg qd methocarba mol 750 mg tid prn follow up with ortho (Dr Maharaj)- Chronic low back pain 27 0827736 M54.5 appt made at [facility] on October 05, 2020 able to ambulate but when back is bothering her the right leg gives out will await recommenda tions Falls 674807843 R29.6 PT/OT monitor for safety reminders to use call redd [id number] LYLE SANTANA [facility] [address] [address] 10/09/2020 08:49:40 10/11/2020 15:15:25 Falls 368633706 R29.6 follow up with PCP Injury of rotator cuff 032684245 S46.092S 09/12/20 revision-i nitial surgery 07/18/20 wear sling at all times pendulums tid OK to shower PROM/AAROM no abduction >45 no external rotation no forward flexion >45 no strength meloxicam 15 mg qd tizanidine 4 mg tid methocarba mol 750 mg tid prn follow up with ortho (Dr Maharaj) on October 19 at 2:30 Anxiety 92698823 F41.1 ativan 0.5 mg tid prn follow up with PCP Asthma 969298404 J45.20 loratadine 10 mg qd alb hfa 90 mcg 2 puffs q 6 hrs prn follow up with PCP Depressive disorder 3548 9007 F32.89 citalopram 20 mg qd bupropion SR 200 mg bid follow up with PCP Fibromyalgia 372871799 M 79.7 lyrica 150 mg tid nortryptyl ine 25 mg bid follow up with PCP Chronic low back pain 27 7457435 M54.5 follow with [facility] on October 18 at 10:30 in [facility] Non-toxic multinodular goiter 59037812 E04.2 follow up with PCP Gastroesop hageal reflux disease without esophagitis 714658672 K21.9 pantoprazo le 40 mg qd follow up with PCP Vitamin D deficiency 347 33870 E56.8 vitamin D2 63732 units q week follow up with PCP Obesity 319281474 E66.8 follow up with PCP [id number] LYLE SANTANA [address] [address] 11/15/2020 08:32:31 11/23/2020 16:01:37 Vertigo 842923313 R42 meclizine 25 mg tid prn work up done in hospital felt to be poly pharmacy-t osiel would like us to simplify her medication s monitor for improvemen t Falls 392799682 R29.6 PT/OT eval and treat monitor for safety Fibromyalgia 362787122 M 79.7 lyrica 150 mg tid nortryptyl ine 25 mg qd monitor Gastroesop hageal reflux disease without esophagitis 153452375 K21.9 pantoprazo le 40 mg qd monitor for symptoms Depressive disorder 3548 9007 F32.89 bupropion SR 200 mg bid monitor mood psych eval and treat prn Chronic low back pain 27 6861317 M54.5 neurontin 100 mg tid follow with [facility] Asthma 863420923 J45.20 loratadine 10 mg qd alb hfa 90 mcg 2 puffs q 6 hrs prn flovent hfa 110 mcg 1 puff bid monitor respirator y status Anxiety 52127586 F41.1 ativan 0.5 mg tid prn monitor Obesity 875274617 E66.8 monitor Vitamin D deficiency 347 40411 E56.8 vitamin D2 1250 mcg q week monitor levels Non-toxic multinodular goiter 41216354 E04.2 monitor Injury of rotator cuff 009076531 S46.092S 09/12/20 revision-i nitial surgery 07/18/20 meloxicam 15 mg qd tizanidine 4 mg tid prn monitor [id number] Danny Mcarthur MD [address] [address] 11/20/2020 12:24:00 11/23/2020 16:24:02 Vertigo 661938000 R42 see HPI eval by neuro in hospital medication s adjusted monitor on antivert 25 mg tid prn titrate prn question BPV consider liliana maneuver Falls 243417007 R29.6 PT/OT eval and treat monitor for safety Fibromyalgia 057270183 M 79.7 meds adjusted now off celexa monitor for change in presentati on Gastroesop hageal reflux disease without esophagitis 964478593 K21.9 pantoprazo le 40 mg qd monitor for sx relief Depressive disorder 3548 9007 F32.89 monitor with med adjustment s psych to eval prn Chronic low back pain 27 3349237 M54.5 known at baseline given above complaints monitor ability to reduce neurontin Anxiety 96946763 F41.1 stable on ativan see above Obesity 143805479 E66.8 dietary eval Non-toxic multinodular goiter 06639788 E04.2 added to PMH Pain in right knee 92269 83908 19588 M25.561 xray to eval monitor for change Vitamin D deficiency 347 51868 E56.8 maintained on Vit D [id number] SIMRAN LYLE HOUSTON [facility] [address] 11/21/2020 09:08:41 11/24/2020 09:26:16 Osteoarthritis of knee 968078638 M17.11 tylenol prn meloxicam 15 mg qd zanaflex 4 mg q 8 hrs prn nortriptyl ine 25 mg qd lyrica 150 mg tid neurontin 100 mg tid monitor [id number] SIMRAN LYLE HOUSTON [facility] [address] [address] 11/22/2020 08:56:09 11/24/2020 09:35:24 Vertigo 911233657 R42 meclizine 25 mg tid prn work up done in hospital felt to be poly pharmacy-t osiel would like PCP to simplify her medication s follow up with PCP Falls 885978820 R29.6 follow up with PCP Fibromyalgia 966849109 M 79.7 lyrica 150 mg tid nortryptyl ine 25 mg qd follow up with PCP Gastroesop hageal reflux disease without esophagitis 186010998 K21.9 pantoprazo le 40 mg qd follow up with PCP Depressive disorder 3548 9007 F32.89 bupropion SR 200 mg bid follow up with PCP Chronic low back pain 27 6828690 M54.5 neurontin 100 mg tid follow with [facility] Asthma 983287748 J45.20 loratadine 10 mg qd alb hfa 90 mcg 2 puffs q 6 hrs prn flovent hfa 110 mcg 1 puff bid follow up with PCP Anxiety 42354545 F41.1 follow up with PCP Obesity 292750922 E66.8 follow up with PCP Vitamin D deficiency 347 10654 E56.8 vitamin D2 1250 mcg q week on friday follow up with PCP Non-toxic multinodular goiter 87885940 E04.2 follow up with PCP Injury of rotator cuff 160728540 S46.092S 09/12/20 revision-i nitial surgery 07/18/20 meloxicam 15 mg qd tizanidine 4 mg tid prn follow up with PCP [id number] Araceli Mendoza NP [address] [address] 11/20/2023 08:21:31 11/24/2023 11:41:22 Vertigo 898704685 R42 meclizine 25 mg tid prnmonitor orthos q shift x 3 days, then bp dailymonit or for improvemen t [place] 774692343 R29.6 ct, xrays, ekg, labs neg for acute concerns PT/OT eval and treatlabs reviewed and stablemoni tor for safety Fibromyalgia 872666659 M 79.7 nortryptyl ine 25 mg bidlidocai ne patch on in am off in pmsee low back painmonito r Gastroesop hageal reflux disease without esophagitis 194723817 K21.9 pantoprazo le 40 mg qd monitor for symptoms Depressive disorder 3548 9007 F32.89 bupropion SR 200 mg bid monitor mood psych eval and treat prn Chronic low back pain 27 3830663 M54.50 with multiple drug allergiesl idocaine patch dailyflexe ril 10 mg po q 12 hours prn pain/spasm spt ot treat and evalfollow with [facility] outpt prn Asthma 055671257 J45.20 loratadine 10 mg qd monitor respirator y status Anxiety 09436572 F41.1 buspar 10 mg bidmonitor Obesity 644760095 E66.8 monitor weights and supportive aredietici an following Vitamin D deficiency 347 79895 E56.8 vitamin d3 2000 unit daily monitor levels Non-toxic multinodular goiter 63362008 E04.2 monitor Mixed anxi ety and depressive disorder 929442665 F41.8 buspar 10 mg bidbupropr ion 200 mg sr po bidduloxet ine 30 mg cap po bidmonitor Asthenia 58892876 R53.1 pt with weaknesspt ot eval and treatmonit or [id number] Jane Galvan MD [address] [address] 11/21/2023 21:16:22 11/26/2023 09:12:25 Vertigo 042544507 R42 Continue meclizine 25 mg TID prnNeeds PT/OT for strengthen ing, balance, gait training, safety and function.C ontinue fall precaution s.Monitor for safety.Mon pacor orthostati c vitals. Falls 308808456 R29.6 As above. Asthenia 81322920 R53.1 As above. Fibromyalgia 204532196 M 79.7 Continue meds as above and nortryptyl ine 25 mg BID and duloxetine 30 mg BID.Monito r sxs. Gastroesop hageal reflux disease without esophagitis 690535512 K21.9 No current sxs. Continue pantoprazo le 40 mg qd Monitor for GI sxs. Chronic low back pain 27 7114420 M54.51 Failed back syndrome.C ontinue lidocaine patch qd, cyclobenza kyra 10 mg q 12 hrs prn and meds for fibromyalg ia as below.PT/O T eval and tx.F/U with [facility] as outpt Asthma 841888540 J45.20 No recent sxs. Not on inhalers. Continue loratadine 10 mg qd Monitor resp status. Mixed anxi ety and depressive disorder 520492332 F41.8 F32.89 Mood good tonight.Co ntinue Buspar 10 mg BID, buproprion 200 mg BID and duloxetine 30 mg BID.Monito r mood.Consu lt psych prn Obesity 636402237 E66.8 Continue to encourage healthy eating. tician consult Vitamin D deficiency 347 00065 E56.8 Continue cholecalci ferol 2000 IU qd.Monitor levels as outpt Non-toxic multinodular goiter 87510459 E04.2 Last TSH on 10/20/23 was 6.16 [...] Maradiaga Member ID Guarantor Name 11/20/2023 1 FORMERLY [facility] - DOS PRIOR TO 2022 - DUAL ELIGIBLE (MEDICARE REPLACEMENT/ADV ANTAGE - HMO) Latia Mcqueen [id number] Sabrina Mcqueen 11/26/2023 1 FORMERLY [facility] - DOS ON OR AFTER 2022 - MEDICARE ADVANTAGE [place] (MEDICARE REPLACEMENT/ADV ANTAGE - PPO) Sabrina Mcqueen [id number] Sabrina Mcqueen Notes Date Note Type Note [...] and swelling with imaging ordered to [facility] significant forgait instabilitydepressionchronic low back paingerdasthmafibromyalgiagait instability admit to facility for continued care and therapy Danny Mcarthur MD [address], [address], [place], [address], [facility] 11/20/2020 12:41:49 11/22/19 21 text/ht ml 64 year old female being seen for a acute rounding visit. Patient had a right knee x=ray for c/o right knee pain that revealed mild tricompartmental osteoarthritis and no acute abnormality. Will continue to monitor for pain. LYLE SANTANA [address], [address], [place], [address], [facility] 11/21/2020 19:43:26 11/23/19 21 text/ht ml A 64 year old female being seen for a discharge summary. 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 LYLE SANTANA [address], [address], [place], [address], [facility] 11/22/2020 13:54:07 11/20/19 24 text/ht ml A 67 year old female being seen for a initial intake note. Medical history of vertigo, falls, fibromyalgia, GERD, depression, chronic low back pain, asthma, anxiety, obesity, vitamin D deficiency, goiter and injury to rotator cuff. Sabrina presented to [facility] ED for evaluation of back pain, nausea, and fell to the ground in her apartment without LOC diagnosised of worsening low back pain, disc herniation, and hx of compression fracture and transferred to [facility] for continued care and rehab on 11/19/23. Her workup conisted of CT head, cr spine lumbar, blood work and ekg all unremarkable for acute fracture. Mild multilevel degernerative endplate spurring with lower lumbar predominant facet arthritis noted. Blood work including troponin unremarkable. She was given a lidocaine patch and flexeril for pain. Orthos not tolerated by pt to skeins yarn examiner ER. of note: she was admitted to rehab in 2020 for similar concerns. On exam, Sabrina is seen in sitting up at her bedside in [facility] [facility]. She denies any pain, shortness of breath, nausea, dizziness, or chest pain. She is very pleasant and denies any new concerns today. She shows this PRODUCTION ESTIMATOR her two non open red areas to bilateral knees. MOLST: DNR/DNI/transfer to hospital, no dialysis, no art nutrition, may use hydration short term Araceli Mendoza, ANTHONY [address] [facility], [address], [place], [address], [email or web address] 11/20/2023 09:11:01 11/21/19 24 text/ht ml This is a 67 yo woman who is here for rehab after an ED visit for a fall with subsequent back pain.She presented to the [facility] ED on 11/17 after a fall [...] and vitamin D deficiency. Jane Galvan MD [address] [place] [address], [address], [place], [address], [email or web address] 11/21/2023 22:52:34 OBGyn Episode No OBEpisode recorded.
--- OUTSIDE RECORDS SUMMARY | 2025-06-16 22:51 | XMS_ITS | Data Portability ---
Author Organization [email or web address], [facility] Address [address] [place] [address] Care Team Providers Care Director Targeted Marketing Name Role Phone HIM CCA OTHER BLAZE [employer]EN Primary Care Provider [phone] Assessment Encounter Date Assessment Date Assessment LastModified by Organization Details LastModified Time 10/22/2023 10/22/2023 I provided real -time medical direction via phone for this encounter and was available for additional phone-based assistance as needed. I have reviewed and agree with the Assessment and Plan as documented by the Steel Heater. Patient given the opportunity to ask questions. Our service contacted for an assessment of: Urinary symptoms As per above, patient with approximately 24 hours of dysuria, frequency. No history of frequent urinary tract infections. Denies fever, chills, abdominal pain, back pain, flank pain. Per information assurance engineer on the scene, Vital signs are stable [...] Assessment and Plan as documented by the Steel Heater. Patient given the opportunity to ask questions. [...] she was out of the medication. Per information assurance engineer on the scene, Vital signs are stable patient is afebrile. Patient is nontoxic and a good historian of events. Per information assurance engineer on the scene she has a nonfocal [...] . Lab urinalys is, dipstick 2023 024 [facility], [address] [place] [address], [phone] 4 09:18:24 culture, urine 2023 024 [email or web address] [facility] (Centralized Electronic Ordering - All Locations), Patient Can Go To The Location Of Their Choice, [id number] 4 09:55:32 urinalys is, dipstick 2023 024 [facility], [address] [place] [address], [id number] 09:18:51 Referral None recorded . Procedures None recorded . Surgeries None recorded . Imaging None recorded . Medication Orders meclizin e 25 mg tablet 2024 025 [email or web address] [facility] #[id number], [address] [place], [address], 5 18:19:50 meclizin e 25 mg tablet 2024 025 [email or web address], [address] [place], [place], [id number], 5 18:19:56 meclizin e 25 mg tablet 2024 025 [email or web address] [facility] #[id number], [address] [place], [address], 5 18:23:15 levoflox acin 500 mg tablet 2023 024 [facility], [address] [place], [address], 4 21:23:53 lactated Ringers intraven ous solution 2022 023 [email or web address], [address] [place], [address], 3 12:22:06 Patient TargetsNo targets recorded. Patient InstructionsNo instructions recorded. Reason for Referral None Reported. Results Created Date Observation Date Name Description Value Unit Range Abnormal Flag Note LastModifiedBy Organization Detail LastModifiedTime 02/24/2002/23/2023 BMP, serum or plasm a BUN 19 Not Available [facility] [address], [address] 02/23/2023 19:45:16 02/24/20 23 02/23/2023 BMP, serum or plasm a CI- 99 Not Available [facility] [address], [address] 02/23/2023 19:45:16 02/24/20 23 02/23/2023 BMP, serum or plasm a CRE 0.7 Not Available [facility] [address], [address] [place] [address] 02/23/2023 19:45:16 02/24/20 23 02/23/2023 BMP, serum or plasm a GLU 162 Not Available [facility] [address], [address] [place] [address] 02/23/2023 19:45:16 02/24/20 23 02/23/2023 BMP, serum or plasm a K+ 4.2 Not Available [facility] [address], [address] [place] [address] 02/23/2023 19:45:16 02/24/20 23 02/23/2023 BMP, serum or plasm a Na+ 139 Not Available [facility] [address], [address] [place] [address] 02/23/2023 19:45:16 02/24/20 23 02/23/2023 BMP, serum or plasm a tCO2 20 Not Available [facility] [address], [address] [place] [address] 02/23/2023 19:45:16 03/01/20 23 03/01/2023 BMP, serum or plasm a BUN 23 Not Available [facility] [address], [address] [place] [address] 03/01/2023 13:31:01 03/01/20 23 03/01/2023 BMP, serum or plasm a CRE 0.7 Not Available [facility] [address], [address] [place] [address] 03/01/2023 13:31:01 03/01/20 23 03/01/2023 BMP, serum or plasm a GLU 131 Not Available [facility] [address], [address] 03/01/2023 13:31:01 03/01/20 23 03/01/2023 BMP, serum or plasm a K+ 4.6 Not Available [facility] [address], [address] [place] [address] 03/01/2023 13:31:01 03/01/20 23 03/01/2023 BMP, serum or plasm a Na+ 140 Not Available [facility] [address], [address] [place] [address] 03/01/2023 13:31:01 03/01/20 23 03/01/2023 BMP, serum or plasm a tCO2 28 Not Available [facility] [address], [place], [address] 03/01/2023 13:31:01 Result Notes None recorded. Medical [...] Address Organization Details Last Updated DateTime 4 69855.6 g 152.4 cm 98.4 [degF] 96 % 14 /min 80 /min 124/80 mm[Hg] Not Available [facility] [employer] [facility] [employer] 4 21:21:02 Date Recorded Respiratory rate Body temperature Heart rate Oxygen saturation Systolic And Diastolic Provider Name and Address Organization Details Last Updated DateTime 5 18 /min 97.7 [degF] 71 /min 97 % 129/75 mm[Hg] Not Available [facility] [employer] 5 18:20:58 Date Recorded Oxygen saturation Respiratory rate Heart rate Body temperature Systolic And Diastolic Provider Name and Address Organization Details Last Updated DateTime 5 95 % 16 /min 83 /min 98 [degF] 138/98 mm[Hg] Not Available [facility] [employer] 5 18:17:10 Date Recorded Body temperature Respiratory rate Heart rate Oxygen saturation Systolic And Diastolic Provider Name and Address Organization Details Last Updated DateTime 3 97.9 [degF] 16 /min 99 /min 97 % 128/78 mm[Hg] Not Available [facility] 3 11:48:04 Date Recorded Body temperature Heart rate Respiratory rate Oxygen saturation Systolic And Diastolic Provider Name and Address Organization Details Last Updated DateTime 3 96.9 [degF] 72 /min 16 /min 100 % 161/90 mm[Hg] Not Available [facility] [employer] 3 15:42:48 Social History None recorded. Functional Status None recorded. Mental Status None recorded. Family History Nothing Reported. Medical History No medical history recorded. Gynecological HistoryNo gynecological history recorded. Obstetrics History GPAL:G 0 P 0 0 0 0 Past Encounters Encounter ID Performer Location Encounter Start Date Encounter Closed Date Diagnosis/Indication Diagnosis SNOMED-CT Code Diagnosis ICD10 Code Diagnosis IMO Codes Diagnosis Note [id number] Kesha Beck MD Main - [address] [phone] 02/21/2023 15:44:06 02/22/2023 15:35:21 Dehydration 27510801 E86.0 [id number] Sajan Rueda MD [facility] - [address] [address] 02/23/2023 18:33:42 02/24/2023 07:20:36 Dizziness 666451169 R42 As noted, we were called to see this patient regarding concerns of dizziness/ unsteadine ss. Evaluation in the field was performed by my information assurance engineer colleague, as noted above, I provided real-time [...] uncertain etiology, ddx includes hypovolemi a, meds, BEARING MAKER or PNS process, including focal lesions, neuropathy [...] particular ly falling, confusion, face/arm/l eg weakness. [id number] Madelyn Robertson MD [facility] - [address] [phone] 03/01/2023 13:28:34 03/04/2023 11:06:40 Acute gastroenteritis 56799618 K52.9 Evaluation in the field was performed by my information assurance engineer colleague, as noted above, I provided real-time [...] shortness of breath, cough, chest pain, fever. [id number] Carmen Pemberton MD Main - [address] [address] 03/02/2023 11:45:43 03/04/2023 11:11:38 Acute gastroenteritis 65563066 K52.9 67 yo w/ gastroente ritis, seen two days ago by [facility] w/ c/o NBNB nausea/vom itting/derrek rrhea. Treated [...] on Friday morning. Questions answered; pt and information assurance engineer agreeable with plan [id number] Jose Hawk MD Main - [facility] [address] [place] [phone] 04/06/2023 15:42:46 04/07/2023 08:17:20 Syncope and collapse [id number] R55 This 67-year-ol d female has had two episodes of syncope without warning in the past 24 hours. She did hit her head and now complains of head and neck pain. I recommende d that she go to the ER for further evaluation and treatment. The patient resisted this recommenda tion, so I instructed the information assurance engineer to try and change her mind. [id number] Alie Dillard MD Main - [facility] [address] [place] [phone] 10/22/2023 21:20:49 10/23/2023 11:15:53 Urinary symptoms 252144301 R39.9 [id number] [facility] [address] [place] [phone] 11/16/2024 18:20:56 11/16/2024 21:08:15 Dizziness [id number] R42 [id number] Madelyn Robertson MD [facility] - [facility] [address] [place] [phone] 11/20/2024 18:17:08 11/21/2024 18:14:07 Vertigo [id number] R42 10719 Evaluation in the field was performed by my information assurance engineer colleague, as noted above, I provided real-time [...] Maradiaga Member ID Guarantor Name 11/16/2024 1 [facility] - DOS ON OR AFTER 2022 - DUAL ELIGIBLE - DETENTION OPTIONS AND ONE CARE (MEDICARE REPLACEMENT/ADV ANTAGE - HMO) Sabrina Mcqueen [id number] Sabrina Mcqueen Notes Date Note Type Note [...] POC bloodwork drawn, unremarkable. Sent results to [facility], [facility] contacted [facility] ordered 1L of NS and 4MG of zofran IVP. [facility] sent prescription for Zofran to pt's pharmacy. Pt educated on s/s warranting a 911 call/trip to the hospital. Pt advised to F/U with PCP or [facility] if symptoms persist or worsen. Shreyas TORRES ...................... ...................... ...................... ...................... ...................... ...................... ......... Steel Heater Note From Man Bolton: Dispatched to the [...] airway open and patent. 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 Able to speak in full sentences, -JVD, -HEENT, pupils PERRL, and soft non tender/distended, skin PWD with good turgid, lung sounds clear an equal bilaterally. [facility] consulted. IV established. BMP conducted, 1L LR given. Red flags discussed. All times are approx. ...................... ...................... ...................... ...................... ...................... ...................... ......... Disposition: Fulfilled Carmen Pemberton MD [address] [place] [address],[address], [place], [address], [email or web address] 03/03/2023 12:22:18 04/06/2023 text/html ROS as noted in the HPI CRC Nursing Assessment: Chief Complaints: Syncope/Dizziness/Ligh theadedness, Falls PMH: COPD/Asthma Allergies: Unknown Comments: + dizziness since yesterday. Fall x2 yesterday and today. Unsteady gait due to dizziness. Unknown LOC. Possible head strike. c/o left wrist pain. Advised ED for further evaluation. Member declined ED after education but will accept [facility] visit first. Red flags reviewed. Instructed to call 911 for worsening symptoms. Jose Hawk MD [address] [place] [address],[address] [facility], [place], [phone], [employer] 04/06/2023 15:45:49 10/22/2023 text/html CRC Nurse Triage Notes (Morenita Dawson): Chief Complaints: Pain PMH: COPD/Asthma Allergies: Unknown Comments: Egyptian speaking member. 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 Verified name//address. Member reports left flank pain that is getting worse. Reports multiple falls. Last fall on Friday. Member states she was evaluated s/p falls. Denies fevers. Denies urinary symptoms. Denies chest pain or shortness of breath. Advised member to call 911 with worsening signs/symptoms. ...................... ...................... ...................... ...................... ...................... ...................... ......... Steel Heater Note From Costa Nielsen: Patient conscious alert [...] sample culture to [facility] UA values to [facility]. [facility] orders levafloxacin 500 mg PO and will prescribe more to patients local pharmacy. Red flags and patient education discussed. Consent, signed and uploaded times two ...................... ...................... ...................... ...................... ...................... ...................... ......... Disposition: Fulfilled Alie Dillard MD [address] [place] [address],[address], [place], [phone] [email or web address] 10/22/2023 21:25:11 11/16/2024 text/html CRC Nurse Triage [...] 68 y.o female complains of Dizziness, Weakness Egyptian speaking patient reporting dizziness when turning head, [...] ...................... ...................... ...................... ...................... ...................... ...................... ......... Steel Heater Note From Bonnie Morales: Sent to a [...] and treated for UTI and Vertigo at [facility]. Pt is still taking Keflex as [...] unremarkable; Extremities: unremarkable; Skin: pink, warm, dry; [facility] consulted and orders Meclizine 25mg PO. Meclizine 25mg PO administered. Pt advised to follow up with PCP again tomorrow. Red flags discussed. Pt has no further questions. [facility] Medication Orders: meclizine 25 mg tablet: Administered ...................... ...................... ...................... ...................... ...................... ...................... ......... [facility] Consulted: Alie Dillard ...................... ...................... ...................... ...................... ...................... ...................... ......... Disposition: Fulfilled Alie Dillard MD [address] [place] [address],[address], [place], [address], [employer] 11/16/2024 19:43:20 11/20/2024 text/html CRC [...] ...................... ...................... ...................... ...................... ...................... ...................... ......... Steel Heater Note From Chai Nunez: Encountered patient, supine in bed and conscious. Patient reports she has a history of vertigo for which she is treated with meclizine, was admitted from 11/11/24-11/13/24 at [facility] for said vertigo. Patient reports [...] Extremity is free of trauma and edema. [facility] contacted: recommends patient be transported to the emergency room since she lives by herself and is suffering falls due to her dizziness, despite taking meclizine as prescribed. [facility] additionally states if patient is refusing transport [...] ...................... ...................... ...................... ...................... ...................... ...................... ......... [facility] Consulted: Madelyn Robertson ...................... ...................... ...................... ...................... ...................... ...................... ......... Disposition: Fulfilled Madelyn Robertson MD [address] [facility],[address], [place], [address], [employer] 11/20/2024 21:14:56 OBGyn Episode No OBEpisode recorded.
--- OUTSIDE RECORDS SUMMARY | 2025-06-16 22:51 | XMS_ITS | Clinical Summary ---
Author Organization [facility] Address [address] [place] [address] Phone Care Team Providers Care Research Librarian Name Role Phone Henrique Soler MD Primary Care Provider [phone] Allergies Active Allergy Reactions Criticality Noted Date [...] by MD. 30 each 5 06/07/20 Active Problems Problem Noted Date Diagnosed Date [...] 5:16 PM EST - 05/21/2025 9:04 PM [facility] Emergency [address] [place] [phone] Aashish Anaya MD Fall, initial encounter (Primary Dx) Discharge Disposition: Home or Self Care 05/08/2025 11:40 AM EST - 05/08/2025 5:59 PM [facility] Emergency [address] [place] [phone] Ava Souza MD Fall initial encounter (Primary Dx); Lumbar paraspinal muscle spasm Discharge Disposition: Home or Self Care 04/30/2025 4:34 PM EDT - 04/30/2025 10:30 PM EDT [facility] Emergency [address] [place] [phone] Mook Irizarry MD Zaidi, Mansoor Anwer, MD [...] Orientation Straight 05/18/2024 4: 41 PM EST Last Filed Vital Signs Vital Sign Reading [...] Health Maintenance Due Date Last Done Comments Drug Screen 1955 Non-Opioid Controlled Substance Agreement 1955 Zoster Vaccines (1 of 2) 2006 Breast [...] MD on 05/21/2025 19:49:13 Aashish Anaya MD IM CT PROCEDURES Final Result * CT Maxillofacial [...] by: Fernando Hilliard MD on 05/21/2025 19:52:58 Aashish Anaya MD [facility] [place] PROCEDURES Final Result * CT Head [...] MD on 05/21/2025 19:49:22 Aashish Anaya MD [facility] [place] PROCEDURES Final Result * XR Fingers [...] Signed Date: 05/22/2025 08:20 ET Workstation ID: [id number] Transcribed By: Self Edit Transcribed Date: 05/22/2025 [...] Signed Date: 05/22/2025 08:20 ET Workstation ID: [id number] Transcribed By: Self Edit Transcribed Date: 05/22/2025 [...] Signed Date: 05/22/2025 08:14 ET Workstation ID: [id number] Transcribed By: Self Edit Transcribed Date: 05/22/2025 [...] Signed Date: 05/22/2025 08:14 ET Workstation ID: [id number] Transcribed By: Self Edit Transcribed Date: 05/22/2025 [...] Signed Date: 05/22/2025 08:23 ET Workstation ID: [id number] Transcribed By: Self Edit Transcribed Date: 05/22/2025 [...] Signed Date: 05/22/2025 08:23 ET Workstation ID: [id number] Transcribed By: Self Edit Transcribed Date: 05/22/2025 08:21 ET us Aashish Anaya MD IMG XR PROCEDURES Final Result * ECG-Annotated (05/10/2025) Only the most recent of2 resultswithin the time period is included. us Provider Onbase MD ECG ORDERABLES Final Result * XR Toes 2+ Views Left (05/08/2025 3:44 PM EST) Anatomical Region Laterality Modality Lower Extremities, Toes Left [facility] 05/08/2025 3:53 PM EST Impressions [...] Signed Date: 05/08/2025 15:58 ET Workstation ID: [id number] Transcribed By: Self Edit Transcribed Date: 05/08/2025 [...] Signed Date: 05/08/2025 15:58 ET Workstation ID: [id number] Transcribed By: Self Edit Transcribed Date: 05/08/2025 15:53 ET Ava Souza MD IMG XR PROCEDURES Final [...] Signed Date: 05/08/2025 15:46 ET Workstation ID: [id number] Transcribed By: Self Edit Transcribed Date: 05/08/2025 [...] Signed Date: 05/08/2025 15:46 ET Workstation ID: [id number] Transcribed By: Self Edit Transcribed Date: 05/08/2025 15:36 ET Ava Souza MD IMG CT PROCEDURES Final Result * CT Thoracic [...] Signed Date: 05/08/2025 15:26 ET Workstation ID: [id number] Transcribed By: Self Edit Transcribed Date: 05/08/2025 [...] Signed Date: 05/08/2025 15:26 ET Workstation ID: [id number] Transcribed By: Self Edit Transcribed Date: 05/08/2025 15:17 ET us Ava Souza MD [facility] [place] PROCEDURES Final Result * Troponin I high sensitivity (05/08/2025 12:27 PM EST) [facility] High Sensitivity Troponin I 5 <=54 ng/L LAB CHEMISTRY METHOD 05/08/2025 1:43 PM [facility] Blood Venous blood specimen / Unknown Venipuncture / Unknown 05/08/2025 12:27 PM EST 05/08/2025 1:15 PM EST [facility] - 05/08/2025 1:43 PM EST High levels of biotin in samples may falsely decrease hsTroponin values. Use caution when interpreting hsTroponin results in patients taking biotin who exhibit renal impairment (eGFR <60) or in patients taking more than 20 mg/day of biotin. Ava Souza MD LAB BLOOD ORDERABLES Final Resul t [facility] [address] [place] [address], * (ABNORMAL) CBC auto differential (05/08/2025 12:27 PM EST) Only the most recent of2 resultswithin the time period is included. [facility] WBC 6.3 4.8 - 10.8 K/mcL LAB HEMETOLOGY METHOD 05/08/2025 1:22 PM [facility] RBC 4.70 3.80 - 4.80 M/mcL LAB HEMETOLOGY METHOD 05/08/2025 1:22 PM [facility] Hemoglobin 13.2 11.5 - 16.0 g/dL LAB HEMETOLOGY METHOD 05/08/2025 1:22 PM [facility] Hematocrit 41.7 35.0 - 47.0 % LAB HEMETOLOGY METHOD 05/08/2025 1:22 PM [facility] MCV 88.5 79.0 - 98.0 FL LAB HEMETOLOGY METHOD 05/08/2025 1:22 PM [facility] MCH 28.0 27.0 - 32.0 pcg LAB HEMETOLOGY METHOD 05/08/2025 1:22 PM [facility] MCHC 31.7(L) 32.0 - 37.0 g/dL LAB HEMETOLOGY METHOD 05/08/2025 1:22 PM [facility] RDW 14.7 11.0 - 15.0 % LAB HEMETOLOGY METHOD 05/08/2025 1:22 PM [facility] Platelets 272 130 - 400 K/mcL LAB HEMETOLOGY METHOD 05/08/2025 1:22 PM [facility] MPV 11.5(H) 7.0 - 11.0 FL LAB HEMETOLOGY METHOD 05/08/2025 1:22 PM [facility] NRBC 0.0 <1.0 % LAB HEMETOLOGY METHOD 05/08/2025 1:22 PM [facility] NRBC Absolute 0.00 <0.10 K/mcL LAB HEMETOLOGY METHOD 05/08/2025 1:22 PM [facility] Neutrophils Relative 58.9 % LAB HEMETOLOGY METHOD 05/08/2025 1:22 PM [facility] Lymphocytes Relative 29.7 % LAB HEMETOLOGY METHOD 05/08/2025 1:22 PM [facility] Monocytes Relative 7.6 % LAB HEMETOLOGY METHOD 05/08/2025 1:22 PM [facility] Eosinophils Relative 2.7 % LAB HEMETOLOGY METHOD 05/08/2025 1:22 PM [facility] Basophils Relative 0.8 % LAB HEMETOLOGY METHOD 05/08/2025 1:22 PM [facility] Immature Granulocytes Relative 0.3 % LAB HEMETOLOGY METHOD 05/08/2025 1:22 PM [facility] Neutrophils Absolute 3.72 1.50 - 7.00 K/mcL LAB HEMETOLOGY METHOD 05/08/2025 1:22 PM EST [facility] Lymphocytes Absolute 1.88 1.00 - 5.00 K/[facility] LAB HEMETOLOGY METHOD 05/08/2025 1:22 PM EST [facility] Monocytes Absolute 0.48 0.20 - 1.00 K/[facility] LAB HEMETOLOGY METHOD 05/08/2025 1:22 PM EST [facility] Eosinophils Absolute 0.17 0.00 - 0.50 K/[facility] LAB HEMETOLOGY METHOD 05/08/2025 1:22 PM EST [facility] Basophils Absolute 0.05 0.00 - 0.20 K/[facility] LAB HEMETOLOGY METHOD 05/08/2025 1:22 PM [facility] Immature Granulocytes Absolute 0.02 0.00 - 0.03 K/[facility] LAB HEMETOLOGY METHOD 05/08/2025 1:22 PM [facility] Blood Venous blood specimen / Unknown Venipuncture / Unknown 05/08/2025 12:27 PM EST 05/08/2025 1:14 PM EST us Ava Souza MD LAB BLOOD ORDERABLES Final Resul t [facility] [address] [place] [address], * (ABNORMAL) Comprehensive Metabolic Panel (CMP) (05/08/2025 12:27 PM EST) Sodium 141 133 - 145 mmol/L LAB CHEMISTRY METHOD 05/08/2025 1:49 PM EST [facility] Potassium 4.4 3.5 - 5.5 mmol/L LAB CHEMISTRY METHOD 05/08/2025 1:49 PM EST [facility] Comment:Hemolysis present Chloride 108 96 - 110 mmol/L LAB CHEMISTRY METHOD 05/08/2025 1:49 PM EST [facility] CO2 29 21 - 32 mmol/L LAB CHEMISTRY METHOD 05/08/2025 1:49 PM [facility] Anion Gap 4 3 - 11 LAB CHEMISTRY METHOD 05/08/2025 1:49 PM [facility] Glucose 171(H) 70 - 100 mg/dL LAB CHEMISTRY METHOD 05/08/2025 1:49 PM [facility] BUN 18 5 - 25 mg/dL LAB CHEMISTRY METHOD 05/08/2025 1:49 PM [facility] Creatinine 0.77 0.50 - 1.10 mg/dL LAB CHEMISTRY METHOD 05/08/2025 1:49 PM [facility] eGFR 84 >=60 mL/min/1. 73m2 LAB CHEMISTRY METHOD 05/08/2025 1:49 PM [facility] Comment:Calculation based on the Chronic Kidney Disease Epidemiology Collaboration (CKD-EPI) equation refit without adjustment for race. BUN/Creatinine Ratio 23.4 LAB CHEMISTRY METHOD 05/08/2025 1:49 PM [facility] Calcium 9.0 8.5 - 10.5 mg/dL LAB CHEMISTRY METHOD 05/08/2025 1:49 PM [facility] AST (SGOT) 18 10 - 42 unit/L LAB CHEMISTRY METHOD 05/08/2025 1:49 PM [facility] Comment:Hemolysis present ALT (SGPT) 18 10 - 60 unit/L LAB CHEMISTRY METHOD 05/08/2025 1:49 PM [facility] Alkaline Phosphatase 88 42 - 121 unit/L LAB CHEMISTRY METHOD 05/08/2025 1:49 PM [facility] Total Protein 7.1 6.0 - 8.0 g/dL LAB CHEMISTRY METHOD 05/08/2025 1:49 PM [facility] Albumin 3.4 3.2 - 5.0 g/dL LAB CHEMISTRY METHOD 05/08/2025 1:49 PM [facility] Total Bilirubin 0.3 0.0 - 1.4 mg/dL LAB CHEMISTRY METHOD 05/08/2025 1:49 PM EST [facility] Blood Venous blood specimen / Unknown Venipuncture / Unknown 05/08/2025 12:27 PM EST 05/08/2025 1:14 PM EST us Ava Souza MD LAB BLOOD ORDERABLES Final Resul t Performing Organization Address City/[facility]/ZIP Co de Phone Number [facility] [address] [place] [address], [place] [phone] * 12-Lead ECG (05/08/2025 12:21 PM EST) Only the most recent of2 resultswithin the time period is included. Ventricular Rate ECG 78 BPM GEMUSE Atrial Rate 78 BPM GEMUSE P-R Interval 194 ms GEMUSE QRS Duration 84 ms GEMUSE Q-T Interval 406 ms GEMUSE QTc 462 ms GEMUSE P Wave Willard 63 degrees GEMUSE R Willard -18 degrees GEMUSE T Willard 41 degrees GEMUSE ECG Interpretation Normal sinus rhythm with sinus arrhythmia Normal ECG When compared with ECG of 30-APR-2025 17:39, No significant change was found Confirmed by SAVI THOMAS ([id number]) on 05/08/2025 6:56:15 PM GEMUSE 05/08/2025 12:2 1 PM EST 05/08/2025 6:56 PM EST us Ava Souza MD ECG ORDERABLES Final Result Performing Organization Address City/[facility]/ZIP Co de Phone Number GEMUSE * (ABNORMAL) Urinalysis with reflex microscopic (04/30/2025 8:08 PM EDT) Pathologist [facility] Specific [facility] Urine 1.026 1.003 - 1.030 LAB URINALYSIS - AUTOMATED METHOD 04/30/2025 8:31 PM EDT [facility] pH, Urine 5.5 5.0 - 8.0 pH LAB URINALYSIS - AUTOMATED METHOD 04/30/2025 8:31 PM [facility] Leukocytes, Urine Small(A) Negative LAB URINALYSIS - AUTOMATED METHOD 04/30/2025 8:31 PM [facility] Nitrite, Urine Negative Negative LAB URINALYSIS - AUTOMATED METHOD 04/30/2025 8:31 PM [facility] Protein, Urine Trace <=Trace mg/dL LAB URINALYSIS - AUTOMATED METHOD 04/30/2025 8:31 PM [facility] Glucose, Urine Negative Negative mg/dL LAB URINALYSIS - AUTOMATED METHOD 04/30/2025 8:31 PM [facility] Ketones, Urine Negative Negative mg/dL LAB URINALYSIS - AUTOMATED METHOD 04/30/2025 8:31 PM [facility] Urobilinogen, Urine 0.2 0.2 - 1.0 mg/dL LAB URINALYSIS - AUTOMATED METHOD 04/30/2025 8:31 PM [facility] Bilirubin, Urine Negative Negative LAB URINALYSIS - AUTOMATED METHOD 04/30/2025 8:31 PM [facility] Blood, Urine Small(A) Negative LAB URINALYSIS - AUTOMATED METHOD 04/30/2025 8:31 PM [facility] RBC, Urine 0.9 0 - 4 /HPF LAB URINALYSIS - AUTOMATED METHOD 04/30/2025 8:31 PM [facility] WBC, Urine 12.6(H) 0 - 4 /HPF LAB URINALYSIS - AUTOMATED METHOD 04/30/2025 8:31 PM [facility] Squamous Epithelial, Urine >100(H) 0 - 60 /LPF LAB URINALYSIS - AUTOMATED METHOD 04/30/2025 8:31 PM [facility] Bacteria, Urine Many(A) Negative /HPF LAB URINALYSIS - AUTOMATED METHOD 04/30/2025 8:31 PM EDT [facility] Hyaline Casts, Urine 3.4(H) 0 - 3 /LPF LAB URINALYSIS - AUTOMATED METHOD 04/30/2025 8:31 PM EDT [facility] Urine Urine specimen obtained by clean catch procedure / Unknown Non-blood Collection / Unknown 04/30/2025 8:08 PM EDT 04/30/2025 8:20 PM EDT Mook Irizarry MD LAB URINE ORDERABLES Final Result [facility] [address] [place] [address], [place] [phone] * Mercedes urine culture tube (04/30/2025 8:08 PM EDT) Extra Tube Hold for add-ons. 04/30/2025 10:02 PM EDT [facility] Comment:Auto resulted. Urine Urine specimen obtained by clean catch procedure / Unknown 04/30/2025 8:08 PM EDT 04/30/2025 8:20 PM EDT René Jamil MD LAB URINE ORDERABLES Elenita l Result Performing Organization Address [facility] [place]/[facility]/ZIP Co de Phone Number [facility] [address] [place] [address], [place] [phone] * XR Foot 3+ Views Left (04/30/2025 [...] Signed Date: 04/30/2025 20:14 ET Workstation ID: [id number] Transcribed By: Self Edit Transcribed Date: 04/30/2025 [...] Signed Date: 04/30/2025 20:14 ET Workstation ID: [id number] Transcribed By: Self Edit Transcribed Date: 04/30/2025 [...] Signed Date: 04/30/2025 20:07 ET Workstation ID: [id number] Transcribed By: Self Edit Transcribed Date: 04/30/2025 [...] Signed Date: 04/30/2025 20:07 ET Workstation ID: [id number] Transcribed By: Self Edit Transcribed Date: 04/30/2025 20:07 ET us Mook Irizarry MD IMG XR PROCEDURES Final Res ult * (ABNORMAL) Basic metabolic panel (04/30/2025 5:52 PM EDT) Sodium 139 133 - 145 mmol/L LAB CHEMISTRY METHOD 04/30/2025 6:24 PM EDT [facility] Potassium 3.9 3.5 - 5.5 mmol/L LAB CHEMISTRY METHOD 04/30/2025 6:24 PM EDT [facility] Chloride 104 96 - 110 mmol/L LAB CHEMISTRY METHOD 04/30/2025 6:24 PM EDT [facility] CO2 32 21 - 32 mmol/L LAB CHEMISTRY METHOD 04/30/2025 6:24 PM EDT [facility] Anion Gap 3 3 - 11 LAB CHEMISTRY METHOD 04/30/2025 6:24 PM EDT [facility] Glucose 133(H) 70 - 100 mg/dL LAB CHEMISTRY METHOD 04/30/2025 6:24 PM EDT [facility] BUN 22 5 - 25 mg/dL LAB CHEMISTRY METHOD 04/30/2025 6:24 PM EDT [facility] Creatinine 0.67 0.50 - 1.10 mg/dL LAB CHEMISTRY METHOD 04/30/2025 6:24 PM EDT [facility] eGFR 95 >=60 mL/min/1. 73m2 LAB CHEMISTRY METHOD 04/30/2025 6:24 PM EDT [facility] Comment:Calculation based on the Chronic Kidney Disease Epidemiology Collaboration (CKD-EPI) equation refit without adjustment for race. BUN/Creatinine Ratio 32.8 LAB CHEMISTRY METHOD 04/30/2025 6:24 PM EDT [facility] Calcium 9.4 8.5 - 10.5 mg/dL LAB CHEMISTRY METHOD 04/30/2025 6:24 PM T [facility] Blood Venous blood specimen / Unknown Venipuncture / Unknown 04/30/2025 5:52 PM EDT 04/30/2025 5:55 PM EDT us Mook Irizarry MD LAB BLOOD ORDERABLES Final Result [facility] [address] [place] [address], * (ABNORMAL) Lipid panel with reflex to direct LDL (11/12/2024 6:15 AM EDT) Cholesterol 203(H) 0 - 200 mg/dL LAB CHEMISTRY METHOD 11/12/2024 8:03 AM EDT [facility] Triglycerides 80 0 - 150 mg/dL LAB CHEMISTRY METHOD 11/12/2024 8:03 AM EDT [facility] HDL 71 >=40 mg/dL LAB CHEMISTRY METHOD 11/12/2024 8:03 AM EDT [facility] LDL Calculated 116(H) 0 - 100 mg/dL LAB CHEMISTRY METHOD 11/12/2024 8:03 AM EDT [facility] VLDL Cholesterol Randy 16 mg/dL LAB CHEMISTRY METHOD 11/12/2024 8:03 AM EDT [facility] Non HDL Chol. (LDL+VLDL) 132 <145 mg/dL LAB CHEMISTRY METHOD 11/12/2024 8:03 AM EDT [facility] Chol/HDL Ratio 2.9 0.0 - 4.4 LAB CHEMISTRY METHOD 11/12/2024 8:03 AM EDT [facility] Blood Venous blood specimen / Unknown Venipuncture / Unknown 11/12/2024 6:15 AM EDT 11/12/2024 6:58 AM EDT us Jojo GREENWOOD LAB BLOOD ORDERABLES Final Re sult [facility] [address] [place] [address], * SCR MAMMO BI INCL CAD (09/02/2017 [...] Group ID:[id number] Type:Not on file Address: [facility] [place] [phone] Advance Directives Documents on File Type Date Recorded Patient Health Sciences Department Chair Expl anation Health Care Decision (hx) 04/01/2016 [...] currently active code status orders. Care Teams Research Librarian Relationship Specialty Start Date End Date Henrique Soler MD [address] [place] [address] Dr [address] [place], [place] PCP - General Internal Medicine 06/18/14
== END 2025-06-16 16:07 | disposition home or self-care (01) ==
LOC: HO.HVS 15:16
PROVIDERS: PCP Internal Medicine; Visit Provider Surgery Vascular Surgery
DX: I83.11 Varicose veins of right lower extremity with inflammation (principal)
CPT/HCPCS: 99214

== ENCOUNTER → 2025-06-16 15:15 | Outpatient (BNVA) | payer OTHER, SELFPAY | PROVIDERS: PCP Internal Medicine; Visit Provider Surgery Vascular Surgery | DX: I83.11 Varicose veins of right lower extremity with inflammation (principal) | CPT/HCPCS: 99212 ==

== ENCOUNTER 2025-06-27 09:07 | Outpatient (AMB) | payer MEDICARE, MEDICAID, SELFPAY ==
--- NOTE | 2025-06-27 09:11 | A.OFFPC_ITS ---
Vital Signs 06/27/25 09:12 Height 5 ft 6 in Weight 219 lb BMI 35.3 BP 104/64 Blood Pressure Location Rt brachial Position Sitting Pulse 87 Pulse Source Pulse Oximeter Temp 97.5 F Pulse Oximetry (%) 98 Oxygen Delivery Method Room Air Intake Visit Reasons: dizziness Intake Note: Also, c/o Right thumb pain Seeing Eye Dog Teacher Required: No Accompanied by: acute care nursing assistant-Kalyani Allergies codeine (Tylenol-Codeine #3) Allergy (Intermediate, Verified 06/27/25 09:11) Rash morphine Allergy (Intermediate, Verified 06/27/25 09:11) rash and itching nalbuphine (From Nubain) Allergy (Intermediate, Verified 06/27/25 09:11) Rash oxycodone (Percocet) Allergy (Intermediate, Verified 06/27/25 09:11) Rash propoxyphene (From Darvocet-N 100) Allergy (Intermediate, Verified 06/27/25 09:11) Rash tramadol (Ultram) Allergy (Intermediate, Verified 06/27/25 09:11) Rash ibuprofen (From Motrin) Allergy (Mild, Verified 06/27/25 09:11) RASH montelukast (Singulair) Allergy (Unknown, Verified 06/27/25 09:11) Unknown Medication List - Last Reconciled 06/27/25 by Rocky Grey MD [ADULT PULL-UPS -- MEDIUM SIZE As directed] [BED PADS As directed] bupropion HCl SR 200 mg PO BID buspirone 10 mg PO BID 30 days celecoxib (Celebrex) 200 mg PO BID 30 days cholecalciferol (vitamin D3) 50 mcg PO DAILY 90 days cyanocobalamin (vitamin B-12) 1,000 mcg PO DAILY 90 days cyclobenzaprine 5 mg PO BEDTIME daridorexant (Quviviq) 50 mg PO DAILY divalproex 500 mg PO BID 30 days duloxetine 30 mg PO BID 30 days ergocalciferol (vitamin D2) (Vitamin D2) 1,250 mcg PO QWEEK [Heating Pad As directed] heating pads As directed [INCONTINENCE PADS Use as directed] lamotrigine 50 mg PO DAILY [LEFT KNEE BRACE As directed] lemborexant (Dayvigo) mg PO DAILY lidocaine 5% (DermacinRx Lidocan) 1 patch topical DAILY loratadine 10 mg PO DAILY PRN 30 days lorazepam mg PO nortriptyline 25 mg PO BID 30 days pantoprazole 40 mg PO DAILY pregabalin 150 mg PO TID 30 days [QUAD CANE As directed] [QUAD CANE (lightweight) As directed] [RAISED TOILET SEAT As directed] [RIGHT KNEE BRACE As directed] [RIGHT THUMB SPLINT As directed] [RUBBER HANDLE/RN ADVANCED for 4-pronged aluminum cane As directed] [RUBBER TIPS FOR QUAD CANE As directed] [Semi electric hospital bed with 1/2 bed rails As directed Length of need: indefinite] trazodone 50 mg PO BEDTIME PRN 30 days Ventolin HFA 90 mcg/actuation (albuterol sulfate) 2 puffs inhalation Q4-6H PRN NS [WRIST BRACE (right wrist) - MEDIUM As directed] Tobacco use date assessed: 05/27/25 Fall risk assessment: 1 Fall in past year Last assessed Fall Risk: 06/27/25 Dental Screening Dental Screen Date: 04/06/25 HPI HPI Comments History of Present Illness Details The patient is a 69 year old female presenting for evaluation of chronic dizziness, vomiting, and persistent pain from a right wrist injury. About a month ago, the patient had a fall and was evaluated at [facility], where an X-ray of her right wrist was performed. 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 She was given a brace, but she continues to report the wrist is bruised, painful, and has limited motion. She has not seen an instructional systems specialist for this issue. The patient has a chronic history of dizziness, which her caregiver states occurs daily. The episodes of dizziness are associated with tiredness, and their occurrence is random and intermittent. A CT scan of the head from 04/30 with no acute changes and stable ventriculomegaly. A CT of her cervical spine from the same month was negative. She takes no medications for dizziness and has a history of early-stage dementia. [facility] Medical History Strain of right wrist Folliculitis Pure hypercholesterolemia Allergic rhinitis Insomnia Multiple joint pain GERD without esophagitis Vitamin D deficiency Lumbar spondylosis Obesity (BMI 30-39.9) Migraine Primary osteoarthritis of both knees Urinary incontinence Rotator cuff tear, left Depression Asthma Fibromyalgia Non-toxic multinodular goiter Anxiety Surgical History Status post rotator cuff surgery S/P rotator cuff repair Status post right rotator cuff repair (~07/26/18) History of hysterectomy History of cholecystectomy History of laminectomy (~2009) Family History Father Diabetes Mother Medical history unknown Social History Household Members: None Housing: Apartment Do you presently have visiting nurse or other home services: No Alcohol intake: former Patient Tobacco Use Status: Never used Tobacco e-Cigarette/Vaping Use: Never Used Second Hand Smoke Exposure: No service: No Current occupational status: disabled Cognitive needs: Yes (cane) Hearing needs: No Vision needs: Yes (glasses) Questionnaire Thrive Questionnaire Date Thrive assessed: 12/31/24 I am a: Patient What is your living situation today?: I have a steady place to live Within the past 12 months, did the food you bought not last and you didn't have the money to get more?: Often true Within the past 12 months, did you worry whether your food would run out before you got money to buy more?: Often true Do you have trouble paying for medicines?: No Do you have trouble getting transportation to medical appointments?: No Do you have trouble paying your heating and electricity bill?: No Do you have trouble taking care of your child, family member or friend?: No Do you have trouble with day-to-day activities such as bathing, preparing meals, shopping, managing finances, etc.?: Yes Are you currently unemployed and looking for a job?: Yes Are you interested in more education?: No Currently or been in a relationship where the following occur: No concerns reported THRIVE Score: 2 FLACO-7 AMB Questionnaire FLACO-7 Date FLACO - 7 assessed: 01/24/25 Source: Developed by Drs. Lang Pacheco, Kelsey Lund, Filemon Grewal and colleagues, with an educational juvenal from [employer]. Review of Systems Const Details: As per HPI. Physical exam (Primary Care) Vital Signs: Last Vital Signs Temp 97.5 F 06/27/25 09:12 Pulse 87 06/27/25 09:12 BP 104/64 06/27/25 09:12 Pulse Ox 98 06/27/25 09:12 Oxygen Delivery Method Room Air 06/27/25 09:12 BMI result Body Mass Index 35.3 Tobacco/Smoking Status: Tobacco use Status Tobacco use date assessed 05/27/25 06/27/25 09:23 Patient Tobacco Use Status Never used Tobacco 06/27/25 09:23 Tobacco use type 11/30/24 12:25 e-Cigarette/Vaping Use Never Used 06/27/25 09:23 Thrive Assessment: Date of Thrive Assessment Date Thrive assessed 12/31/24 06/27/25 09:23 Currently or been in a relationship where the following occur: No concerns reported Const Other: Pertinent findings are in BOLD GENERAL APPEARANCE NAD, activity normal for age, well developed/ well nourished, no cyanosis, pallor, or diaphoresis. EYES lids/conjunctiva normal. EARS/NOSE/THROAT Mucous membranes moist, nares normal, lips/teeth normal uvula midline without oral pharyngeal erythema, exudate or swelling TMs normal bilaterally. No lymphangitis/lymphedema. HEAD/NECK normocephalic atraumatic, no facial trauma, neck is supple. RESPIRATORY respiratory effort normal, speaks in full sentences, no tripod position, no accessory muscle use. Lungs clear to auscultation without rhonchi, wheezes, rales CARDIAC Regular rate and rhythm, no edema. ABDOMINAL Soft, ND/NT. No evidence of fluid wave. No pulsatile masses on exam, rebound tenderness, Guallpa sign or pain over Mcburney's point. MUSCLES/EXTREMITIES No abnormal range of motion, no swelling. Right thumb bruised with limited ROM due to pain and tender to palpation. SKIN Warm, pink and dry. No rashes, dermatoses, petechiae or lesions. NEUROLOGICAL Speech is clear and appropriate. Normal level of consciousness. Gait and coordination are normal. 5/5 strength in all extremities. PSYCH Normal mood and affect. Judgement/competence is appropriate Coding Level of Care Code Est Pt Level 4 (91419) Diagnoses Thumb sprain S63.609A Dizziness R42 Time Spent (min) 20 Assessment & Plan Assessment & Plan (1) Thumb sprain: Code(s): S63.609A - Unspecified sprain of unspecified thumb, initial encounter Category: Medical Plan: - The patient has persistent pain, bruising, and limited motion in her right thumb for about one month following a fall. - Given the ongoing symptoms and unavailable results from a prior X-ray, a new right wrist X-ray will be ordered today. - A referral to an orthopedic surgeon will be placed for further evaluation and management. (2) Dizziness: Code(s): R42 - Dizziness and giddiness Category: Medical Plan: - The patient reports chronic, daily dizziness. - A prior CT scan of the head showed enlarged ventricles, which may be contributing to her symptoms. - A referral to a neurologist will be placed for evaluation of her chronic dizziness and the CT findings. - The caregiver was advised to request the CT images from [facility] for the neurology appointment. - The patient has a known history of early dementia. - The planned neurology consultation will also include assessment and management of her dementia. Plan I discussed the plan with the patient and her personal injury law specialist. Regarding her right wrist, I explained that because her pain and bruising have not resolved, we will get another X-ray today and I will refer her to an orthopedic hand surgeon for a specialist opinion. For her chronic dizziness, I explained that a previous CT scan of her head showed that the ventricles in her brain are larger than normal, which could be related to her symptoms. Therefore, I recommended a referral to a neurologist to evaluate the dizziness, the CT finding, and her dementia. I advised them to obtain the CT images from [facility] to provide to the neurologist. We confirmed she will maintain her scheduled follow-up with Dr. Polanco in July. Orders: Orders XR hand RT min 3V Today S63.609A - Unspecified sprain of unspecified thumb, initial encounter Referrals Hand Surgery Referral S63.609A - Unspecified sprain of unspecified thumb, initial encounter Neurology Referral G93.89 - Other specified disorders of brain, R42 - Dizziness and giddiness
[2025-06-27 09:12] VITALS: BP 104/64; PULSE 87; TEMP 36.4; O2SAT 98; BMI 35.3
--- OUTSIDE RECORDS SUMMARY | 2025-06-27 10:03 | XMS_ITS | Data Portability ---
Author Organization [facility], Main Office Address [address], [address] [place] [address] Care Team Providers Care Rn Acute Name Role Phone BLAZE PATTEN Primary Care Provider [phone] [facility] - 2ND FLOOR OTHER Assessment Encounter Date Assessment Date Assessment LastModified by Organization Details LastModified Time 11/22/2020 11/22/2020 11/21/20 WBC 5.5, Hgb 13, Hct 40.7, Plt 278, Na 141, K 4.6, BUN 11, Hair Stylist 0.72, karri 8.8 11/15/20 WBC 5.4, Hgb 13.2, Hct 41.3, Plt 291, Na 138, K 4.3, BUN 17, Hair Stylist 1.06, karri 8.6, tot prot 6.9, alb 3.2, tot bili 0.2, AST 19, ALT 24, alk phos 125 [email or web address] Not available 11/22/2020 10:14:01 11/20/2023 11/20/2023 11/15/20 WBC 5.4, Hgb 13.2, Hct 41.3, Plt 291, Na 138, K 4.3, BUN 17, Hair Stylist 1.06, karri 8.6, tot prot 6.9, alb 3.2, tot bili 0.2, AST 19, ALT 24, alk phos 125 Not available 11/20/2023 08:21:55 11/21/2023 11/21/2023 11/15/20 WBC 5.4, Hgb 13.2, Hct 41.3, Plt 291, Na 138, K 4.3, BUN 17, Hair Stylist 1.06, karri 8.6, tot prot 6.9, alb [...] and Address Organization Details Recorded Time Falls 613140813 Active 2020 LYLE SANTANA [address], [address], [place], [address], [facility] 1 09:16:33 Injury of rotator cuff 291466986 Active 2020 LYLE SANTANA [address], [address], [place], [address], [facility] 1 09:17:03 Anxiety 65873397 Active 2020 LYLE SANTANA [address], [address], [place], [address], [facility] [employer] 1 09:19:26 Asthma 636583323 Active 2020 LYLE SANTANA [address], [address], [place], [address], [facility] 1 09:19:37 Depressive disorder 52157963 Active 2020 LYLE SANTANA [address], [address], [place], [address], [facility] 1 09:19:46 Fibromyalgia 640978101 Active 2020 LYLE SANTANA [address], [address], [place], [address], [facility] 1 09:19:57 Chronic low back pain 007993851 Active 2020 LYLE SANTANA [address], [address], [place], [address], [facility] 1 09:23:26 Non-toxic multinodular goiter 14655371 Active 2020 LYLE SANTANA [address], [address], [place], [address], [facility] 1 09:31:03 Gastroesophage al reflux disease without esophagitis 493851659 Active 2020 LYLE SANTANA [address], [address], [place], [address], [facility] 1 17:45:05 Vitamin D deficiency 79979134 Active 2020 LYLE SANTANA [address], [place], [address], [facility] 1 17:50:09 Obesity 775226228 Active 2020 Danny Mcarthur MD [address], [place], [address], [facility] 1 10:03:21 Vertigo 393239730 Active 2020 LYLE SANTANA [address], [address], [place], [address], [facility] 22:04:34 Osteoarthritis of knee 881526079 Active 2020 LYLE SANTANA [address], [place], [address], [facility] 1 09:11:19 Asthenia 69548368 Active 2023 Araceli Mendoza NP [address], [address], [place], [address], [facility] 4 08:59:56 Problem Notes None recorded. Procedures Surgical History Date Name Laterality Status Provider Name and Address Organization Details Recorded Time 07/18/19 21 complete repair of rotator cuff completed LYLE SANTANA [address], [address], [place], [address], [facility] 09/15/2020 17:42:10 cholecystectomy completed SIMRAN HOUSTON, TRACKMOBILE OPERATOR [address], [address], [place], [address], [facility] [employer] [facility] 09/15/2020 09:26:25 Hysterectomy completed SIMRAN HOUSTON, TRACKMOBILE OPERATOR [address], [address], [place], [address], [facility] [employer] [facility] 09/15/2020 09:28:09 laminectomy completed SIMRAN HOUSTON, TRACKMOBILE OPERATOR [address], [place], [address], [facility] [employer] [facility] 09/15/2020 09:29:37 Imaging Results None recorded. Procedure Notes None recorded. Medical Equipment None Reported. Allergies Allergen ID Allergen Name Allergen Category Reaction Reaction Severity Criticality Documentation Date Start Date Code Code System Note Provider Name and Address Organization Details Recorded Time 31524 codeine medicatio n rash Not available Not available 09/15/2020 2670 RxNorm SIMRAN HOUSTON, TRACKMOBILE OPERATOR [address] [facility], [address], [place], [address], [facility] [employer] [facility] 09:07:10 82576 morphine medicatio n rash Not available Not available 09/15/2020 7052 RxNorm SIMRAN HOUSTON, TRACKMOBILE OPERATOR [address] [facility], [address], [place], [address], [facility] [employer] [facility] 09:07:28 66474 Nubain medicatio n rash Not available Not available 09/15/2020 7550 RxNorm SIMRAN HOUSTON, TRACKMOBILE OPERATOR [address] [facility], [address], [place], [address], [facility] [employer] [facility] 09:07:44 93237 oxycodone medicatio n rash Not available Not available 09/15/2020 7804 RxNorm SIMRAN HOUSTON, TRACKMOBILE OPERATOR [address], [place], [address], [facility] [employer] [facility] 09:08:42 01216 propoxyph leonel medicatio n rash Not available Not available 09/15/2020 8785 RxNorm SIMRAN HOUSTON, TRACKMOBILE OPERATOR [address] [facility], [address], [place], [address], [facility] [employer] [facility] 1 09:09:13 32169 Ultram medicatio n rash Not available Not available 09/15/2020 92666 6 RxNorm SIMRAN HOUSTON, TRACKMOBILE OPERATOR [address] [facility], [address], [place], [address], [facility] [employer] [facility] 1 09:09:31 51504 ibuprofen medicatio n rash Not available Not available 09/15/2020 5640 RxNorm SIMRAN HOUSTON, TRACKMOBILE OPERATOR [address] [facility], [address], [place], [address], [facility] [employer] [facility] 1 09:09:48 92962 Singulair medicatio n Not available Not available Not available 09/15/2020 20078 9 RxNorm SIMRAN HOUSTON, TRACKMOBILE OPERATOR [address] [facility], [address], [place], [address], [facility] [employer] [facility] 1 09:09:[address] medicatio n Not available Not available unabletoasse 11/20/2023 85826 RxNorm Araceli Mendoza NP [address] [facility], [address], [place], [address], [facility] [employer] [facility] 4 08:27:44 18380 acetamino phen medicatio n other Not available unabletoasse 11/20/2023 161 RxNorm unkno wn Araceli Mendoza NP [address] [facility], [address], [place], [address], [facility] [employer] [facility] 4 08:28:06 75497 hydromorp philip medicatio n other Not available unabletoasse 11/20/2023 3423 RxNorm Araceli Mendoza NP [address] [facility], [address], [place], [address], [facility] [employer] 4 08:28:54 Vitals Date Recorded Body weight Heart rate Respiratory rate Body temperature Oxygen saturation Systolic And Diastolic Provider Name and Address Organization Details Last Updated DateTime 4 92178.4 g 64 /min 18 /min 96 [degF] 95 % 113/72 mm[Hg] Araceli Mendoza NP [address] [facility], [address], [place], [address], [facility] 4 08:22:52 Date Recorded Systolic And Diastolic Provider Name and Address Organization Details Last Updated DateTime 11/20/2020 133/69 mm[Hg] Danny Mcarthur MD [address] [facility], [address], [place], [address], [facility] 11/20/2020 12:24:49 Date Recorded Body weight Body mass index (BMI) Body height Heart rate Respiratory rate Body temperature Oxygen saturation Systolic And Diastolic Provider Name and Address Organization Details Last Updated DateTime 4 18338.1 9 g 34 kg/m2 167.64 cm 80 /min 18 /min 97.5 [degF] 93 % 124/78 mm[Hg] Jane Galvan MD [address] [facility], [address], [place], [address], [facility] 4 21:22:27 Date Recorded Oxygen saturation Body temperature Body weight Provider Name and Address Organization Details Last Updated DateTime 11/21/2020 99 % 97.8 [degF] 606047.94 g LYLE SANTANA [address] [facility], [address], [place], [address], [facility] 11/21/2020 19:41:18 Date Recorded Heart rate Respiratory rate Body temperature Oxygen saturation Provider Name and Address Organization Details Last Updated DateTime 11/22/2020 69 /min 15 /min 98.2 [degF] 99 % LYLE SANTANA [address] [facility], [address], [place], [address], [facility] 1 10:24:20 Social History Question Answer Notes LastModified by Organizat ion Details LastModified Time Tobacco Smoking Status Never Smoker LYLE SANTANA [address] [facility], [address], [place], [address], [facility] 09/15/2020 09:37:52 Do You Have An [...] Do You Have A Medical Power Of Political Researcher? Yes Information not available 11/21/2023 What Was [...] Recorded Time Tdap 6 completed Krystal Galindo [facility], [facility] 11/20/2023 15:57:00 Tdap 7 completed Krystal Galindo [facility] 11/20/2023 15:57:07 Pneumococcal conjugate PCV 13 1 completed Krystal Galindo [facility] 11/20/2023 15:57:56 pneumococcal polysaccharide PPV23 5 completed [facility] 11/20/2023 15:58:14 influenza, unspecified formulation 2 completed [facility] 11/20/2023 15:58:35 Past Encounters Encounter ID Performer Location Encounter Start Date Encounter Closed Date Diagnosis/Indication Diagnosis SNOMED-CT Code Diagnosis ICD10 Code Diagnosis IMO Codes Diagnosis Note [id number] LYLE SANTANA [address] [address] 09/15/2020 09:05:35 09/19/2020 11:31:05 Falls 493370034 R29.6 PT/OT eval and treatmonit or for safety Injury of rotator cuff 038574908 S46.092S 09/12/20 revision-i nitial surgery 07/18/20wea r sling at all timespendu lums tidno liftingelb ow and wrist ROM okmeloxica m 15 mg qdtizanidi ne 4 mg tidadded methocarba mol 750 mg tid prn as she states this has worked better beforefoll ow up with ortho in 2 weeks (Dr Maharaj) Anxiety 60162778 F41.1 ativan 0.5 mg tid prndiscuss ed risk vs benefit of ativan with ptmonitor anxietypsy ch eval and treat prn Asthma 215651985 J45.20 loratadine 10 mg qdalb hfa 90 mcg 2 puffs q 6 hrs prnmonitor for symptoms Depressive disorder 6268 9007 F32.89 citalopram 20 mg qdbupropio n SR 200 mg bid discussed risk vs benefit of citalopram and bupropion with ptmonitor mood Fibromyalgia 060907047 M 79.7 lyrica 150 mg tidnortrip tyline 25 mg bid discussed risk vs benefit of lyrica and nortriptyl ine with ptmonitor pain Chronic low back pain 27 3944772 M54.5 see above Non-toxic multinodular goiter 36888782 E04.2 noted in historymon itor Gastroesop hageal reflux disease without esophagitis 239619498 K21.9 pantoprazo le 40 mg qdmonitor for symptoms Vitamin D deficiency 347 76805 E56.8 vitamin D2 33845 units q weekmonito r levels [id number] SIMRAN HOUSTON, LYLE [facility] [address] [address] 09/18/2020 09:18:52 09/22/2020 08:57:21 Injury of rotator cuff 676976936 S46.092S 09/12/20 revision-i nitial surgery 07/18/20wea r [...] to covid isolation for 14 days Falls 809812669 R29.6 PT/OTmonit or for safety [id number] Danny Mcarthur MD [address] [address] 09/20/2020 09:45:42 09/22/2020 09:10:40 Falls 019314423 R29.6 PT/OT eval and treat monitor fall risk Injury of rotator cuff 607956791 S46.092S see HPI now s/p revision right rotator cuff surgery with initial completed in Jul 2020 follow surgery recs PT OT eval and treat monitor for pain control update surgery with concerns Anxiety 49247716 F41.1 see above monitor ativan utilizatio n psych eval prn Depressive disorder 9628 9007 F32.89 celexa 20 mg qd wellbutrin SR 200 mg bid continue out patient dose monitor for change in mood psych eval prn Fibromyalgia 850201588 M 79.7 see above maintained on lyrica and tricyclic antidepres gissel monitor for effect avoid opioids as able Chronic low back pain 27 5264693 M54.5 lyrica 150 mg tid continued monitor for effect Non-toxic multinodular goiter 22748884 E04.2 added to PMH Gastroesop hageal reflux disease without esophagitis 573311544 K21.9 pantoprazo le 40 mg qd monitor for sx relief Vitamin D deficiency 347 82701 E56.8 maintained on Vit D Obesity 164397243 E66.09 dietary eval [id number] LYLE SANTANA [facility] [address] [address] 09/25/2020 08:48:52 09/28/2020 12:59:06 Chronic low back pain 798922817 M54.5 states legs give out history of previous surgery appt made at [facility] on October 05, 2020 patient and PT/OT agrees with this Fibromyalgia 569519129 M 79.7 lyrica 150 mg tid nortriptyl ine 25 mg bid monitor pain [id number] LYLE SANTANA [facility] [address] [address] 10/02/2020 08:43:59 10/04/2020 13:00:56 Injury of rotator cuff 651240689 S46.092S 09/12/20 revision-i nitial surgery 07/18/20 wear sling at all times pendulums tid no lifting PROM/AROM- no strength meloxicam 15 mg qd methocarba mol 750 mg tid prn follow up with ortho (Dr Maharaj)- Chronic low back pain 27 0322012 M54.5 appt made at [facility] on October 05, 2020 able to ambulate but when back is bothering her the right leg gives out will await recommenda tions [place] 201237467 R29.6 PT/OT monitor for safety reminders to use call redd [id number] LYLE SANTANA [facility] [address] [address] 10/09/2020 08:49:40 10/11/2020 15:15:25 Falls 467635224 R29.6 follow up with PCP Injury of rotator cuff 372616305 S46.092S 09/12/20 revision-i nitial surgery 07/18/20 wear sling at all times pendulums tid OK to shower PROM/AAROM no abduction >45 no external rotation no forward flexion >45 no strength meloxicam 15 mg qd tizanidine 4 mg tid methocarba mol 750 mg tid prn follow up with ortho (Dr Maharaj) on October 19 at 2:30 Anxiety 53138455 F41.1 ativan 0.5 mg tid prn follow up with PCP Asthma 966269484 J45.20 loratadine 10 mg qd alb hfa 90 mcg 2 puffs q 6 hrs prn follow up with PCP Depressive disorder 3548 9007 F32.89 citalopram 20 mg qd bupropion SR 200 mg bid follow up with PCP Fibromyalgia 130071508 M 79.7 lyrica 150 mg tid nortryptyl ine 25 mg bid follow up with PCP Chronic low back pain 27 9108229 M54.5 follow with [facility] on October 18 at 10:30 in [facility] Non-toxic multinodular goiter 98947578 E04.2 follow up with PCP Gastroesop hageal reflux disease without esophagitis 794810681 K21.9 pantoprazo le 40 mg qd follow up with PCP Vitamin D deficiency 347 51474 E56.8 vitamin D2 29360 units q week follow up with PCP Obesity 525928254 E66.8 follow up with PCP [id number] LYLE SANTANA [address] [address] 11/15/2020 08:32:31 11/23/2020 16:01:37 Vertigo 274200428 R42 meclizine 25 mg tid prn work up done in hospital felt to be poly pharmacy-t osiel would like us to simplify her medication s monitor for improvemen t Falls 605443090 R29.6 PT/OT eval and treat monitor for safety Fibromyalgia 258493110 M 79.7 lyrica 150 mg tid nortryptyl ine 25 mg qd monitor Gastroesop hageal reflux disease without esophagitis 796954661 K21.9 pantoprazo le 40 mg qd monitor for symptoms Depressive disorder 3548 9007 F32.89 bupropion SR 200 mg bid monitor mood psych eval and treat prn Chronic low back pain 27 4437953 M54.5 neurontin 100 mg tid follow with [facility] Asthma 418782634 J45.20 loratadine 10 mg qd alb hfa 90 mcg 2 puffs q 6 hrs prn flovent hfa 110 mcg 1 puff bid monitor respirator y status Anxiety 03549839 F41.1 ativan 0.5 mg tid prn monitor Obesity 917753142 E66.8 monitor Vitamin D deficiency 347 15838 E56.8 vitamin D2 1250 mcg q week monitor levels Non-toxic multinodular goiter 80644904 E04.2 monitor Injury of rotator cuff 853209719 S46.092S 09/12/20 revision-i nitial surgery 07/18/20 meloxicam 15 mg qd tizanidine 4 mg tid prn monitor [id number] Danny Mcarthur MD [address] [address] 11/20/2020 12:24:00 11/23/2020 16:24:02 Vertigo 978228937 R42 see HPI eval by neuro in hospital medication s adjusted monitor on antivert 25 mg tid prn titrate prn question BPV consider liliana maneuver Falls 470880398 R29.6 PT/OT eval and treat monitor for safety Fibromyalgia 220672977 M 79.7 meds adjusted now off celexa monitor for change in presentati on Gastroesop hageal reflux disease without esophagitis 915454745 K21.9 pantoprazo le 40 mg qd monitor for sx relief Depressive disorder 3548 9007 F32.89 monitor with med adjustment s psych to eval prn Chronic low back pain 27 2262196 M54.5 known at baseline given above complaints monitor ability to reduce neurontin Anxiety 92899364 F41.1 stable on ativan see above Obesity 367766645 E66.8 dietary eval Non-toxic multinodular goiter 71181332 E04.2 added to PMH Pain in right knee 81161 54815 15422 M25.561 xray to eval monitor for change Vitamin D deficiency 347 87166 E56.8 maintained on Vit D [id number] SIMRAN LYLE HOUSTON [facility] [address] 11/21/2020 09:08:41 11/24/2020 09:26:16 Osteoarthritis of knee 204196547 M17.11 tylenol prn meloxicam 15 mg qd zanaflex 4 mg q 8 hrs prn nortriptyl ine 25 mg qd lyrica 150 mg tid neurontin 100 mg tid monitor [id number] SIMRAN LYLE HOUSTON [facility] [address] [address] 11/22/2020 08:56:09 11/24/2020 09:35:24 Vertigo 358715401 R42 meclizine 25 mg tid prn work up done in hospital felt to be poly pharmacy-t osiel would like PCP to simplify her medication s follow up with PCP [place] 446721659 R29.6 follow up with PCP Fibromyalgia 070086317 M 79.7 lyrica 150 mg tid nortryptyl ine 25 mg qd follow up with PCP Gastroesop hageal reflux disease without esophagitis 974989694 K21.9 pantoprazo le 40 mg qd follow up with PCP Depressive disorder 3548 9007 F32.89 bupropion SR 200 mg bid follow up with PCP Chronic low back pain 27 0540810 M54.5 neurontin 100 mg tid follow with [facility] Asthma 500603572 J45.20 loratadine 10 mg qd alb hfa 90 mcg 2 puffs q 6 hrs prn flovent hfa 110 mcg 1 puff bid follow up with PCP Anxiety 21190676 F41.1 follow up with PCP Obesity 815911528 E66.8 follow up with PCP Vitamin D deficiency 347 53016 E56.8 vitamin D2 1250 mcg q week on friday follow up with PCP Non-toxic multinodular goiter 37235889 E04.2 follow up with PCP Injury of rotator cuff 212169732 S46.092S 09/12/20 revision-i nitial surgery 07/18/20 meloxicam 15 mg qd tizanidine 4 mg tid prn follow up with PCP [id number] Araceli Mendoza NP [address] [address] 11/20/2023 08:21:31 11/24/2023 11:41:22 Vertigo 899321200 R42 meclizine 25 mg tid prnmonitor orthos q shift x 3 days, then bp dailymonit or for improvemen t [place] 465942544 R29.6 ct, xrays, ekg, labs neg for acute concerns PT/OT eval and treatlabs reviewed and stablemoni tor for safety Fibromyalgia 362711199 M 79.7 nortryptyl ine 25 mg bidlidocai ne patch on in am off in pmsee low back painmonito r Gastroesop hageal reflux disease without esophagitis 887885421 K21.9 pantoprazo le 40 mg qd monitor for symptoms Depressive disorder 3548 9007 F32.89 bupropion SR 200 mg bid monitor mood psych eval and treat prn Chronic low back pain 27 3078795 M54.50 with multiple drug allergiesl idocaine patch dailyflexe ril 10 mg po q 12 hours prn pain/spasm spt ot treat and evalfollow with [facility] outpt prn Asthma 383389240 J45.20 loratadine 10 mg qd monitor respirator y status Anxiety 93021396 F41.1 buspar 10 mg bidmonitor Obesity 191151728 E66.8 monitor weights and supportive aredietici an following Vitamin D deficiency 347 09907 E56.8 vitamin d3 2000 unit daily monitor levels Non-toxic multinodular goiter 49668521 E04.2 monitor Mixed anxi ety and depressive disorder 366561392 F41.8 buspar 10 mg bidbupropr ion 200 mg sr po bidduloxet ine 30 mg cap po bidmonitor Asthenia 73628593 R53.1 pt with weaknesspt ot eval and treatmonit or [id number] Jane Galvan MD [address] [address] 11/21/2023 21:16:22 11/26/2023 09:12:25 Vertigo 432555455 R42 Continue meclizine 25 mg TID prnNeeds PT/OT for strengthen ing, balance, gait training, safety and function.C ontinue fall precaution s.Monitor for safety.Mon pacor orthostati c vitals. Falls 876110809 R29.6 As above. Asthenia 75607763 R53.1 As above. Fibromyalgia 308481670 M 79.7 Continue meds as above and nortryptyl ine 25 mg BID and duloxetine 30 mg BID.Monito r sxs. Gastroesop hageal reflux disease without esophagitis 835372653 K21.9 No current sxs. Continue pantoprazo le 40 mg qd Monitor for GI sxs. Chronic low back pain 27 7874505 M54.51 Failed back syndrome.C ontinue lidocaine patch qd, cyclobenza kyra 10 mg q 12 hrs prn and meds for fibromyalg ia as below.PT/O T eval and tx.F/U with [facility] as outpt Asthma 375659653 J45.20 No recent sxs. Not on inhalers. Continue loratadine 10 mg qd Monitor resp status. Mixed anxi ety and depressive disorder 263880840 F41.8 F32.89 Mood good tonight.Co ntinue Buspar 10 mg BID, buproprion 200 mg BID and duloxetine 30 mg BID.Monito r mood.Consu lt psych prn Obesity 055827175 E66.8 Continue to encourage healthy eating. tician consult Vitamin D deficiency 347 64192 E56.8 Continue cholecalci ferol 2000 IU qd.Monitor levels as outpt Non-toxic multinodular goiter 29850099 E04.2 Last TSH on 10/20/23 was 6.16 [...] Maradiaga Member ID Guarantor Name 11/20/2023 1 [facility] - DOS PRIOR TO 2022 - DUAL ELIGIBLE (MEDICARE REPLACEMENT/ADV ANTAGE - HMO) Latia Mcqueen [id number] Sabrina Mcqueen 11/26/2023 1 [facility] - DOS ON OR AFTER 2022 - MEDICARE ADVANTAGE [place] (MEDICARE REPLACEMENT/ADV ANTAGE - PPO) Sabrina Mcqueen [id number] Sabrina Mcqueen Notes Date Note Type Note [...] pain and swelling with imaging ordered to [facility] significant forgait instabilitydepressionchronic low back paingerdasthmafibromyalgiagait instability admit to facility for continued care and therapy Danny Mcarthur MD [address] [facility], [address], [place], [address], [facility] 11/20/2020 12:41:49 11/22/19 21 text/ht ml 64 year old female being seen for a acute rounding visit. Patient had a right knee x=ray for c/o right knee pain that revealed mild tricompartmental osteoarthritis and no acute abnormality. Will continue to monitor for pain. LYLE SANTANA [address] [facility], [address], [place], [address], [facility] 11/21/2020 19:43:26 11/23/19 21 text/ht ml A 64 year old female being seen for a discharge summary. Patient was brought to [facility] after her PROTECTIVE CLOTHING ISSUER found her sitting in a chair in [...] injury to rotator cuff. LYLE SANTANA [address] [facility], [address], [place], [address], [facility] 11/22/2020 13:54:07 11/20/19 24 text/ht ml A 67 year old female being seen for a initial intake note. Medical history of vertigo, falls, fibromyalgia, GERD, depression, chronic low back pain, asthma, anxiety, obesity, vitamin D deficiency, goiter and injury to rotator cuff. Sabrina presented to [facility] ED for evaluation of back pain, nausea, and fell to the ground in her apartment without LOC diagnosised of worsening low back pain, disc herniation, and hx of compression fracture and transferred to [facility] for continued care and rehab on 11/19/23. Her workup conisted of CT head, cr spine lumbar, blood work and ekg all unremarkable for acute fracture. Mild multilevel degernerative endplate spurring with lower lumbar predominant facet arthritis noted. Blood work including troponin unremarkable. She was given a lidocaine patch and flexeril for pain. Orthos not tolerated by pt to pin game machine inspector ER. of note: she was admitted to rehab in 2020 for similar concerns. On exam, Sabrina is seen in sitting up at her bedside in [facility]. She denies any pain, shortness of breath, nausea, dizziness, or chest pain. She is very pleasant and denies any new concerns today. She shows this ENZYME CHEMIST her two non open red areas to bilateral knees. MOLST: DNR/DNI/transfer to hospital, no dialysis, no art nutrition, may use hydration short term Araceli Mendoza, ANTHONY [address] [facility], [address], [place], [address], [place] 11/20/2023 09:11:01 11/21/19 24 text/ht ml This is a 67 yo woman who is here for rehab after an ED visit for a fall with subsequent back pain.She presented to the [facility] ED on 11/17 after a fall [...] and vitamin D deficiency. Jane Galvan MD [address] [place] [address], [address], [place], [address], [place] 11/21/2023 22:52:34 OBGyn Episode No OBEpisode recorded.
--- OUTSIDE RECORDS SUMMARY | 2025-06-27 10:03 | XMS_ITS | Clinical Summary ---
Author Organization [facility] Address [address] [place] [address] Phone Care Team Providers Care Junior Bookkeeper Name Role Phone Henrique Soler MD Primary [...] 5:16 PM EST - 05/21/2025 9:04 PM [facility] Emergency [address] [place] [phone] Aashish Anaya MD Fall, initial encounter (Primary Dx) Discharge Disposition: Home or Self Care 05/08/2025 11:40 AM EST - 05/08/2025 5:59 PM [facility] Emergency [address] [place] [phone] Ava Souza MD Fall initial encounter (Primary Dx); Lumbar paraspinal muscle spasm Discharge Disposition: Home or Self Care 04/30/2025 4:34 PM EDT - 04/30/2025 10:30 PM EDT [facility] Emergency [address] [place] [phone] Mook Irizarry MD Zaidi, Mansoor Anwer, MD [...] MD on 05/21/2025 19:52:58 Aashish Anaya MD [facility] [...] Signed Date: 05/22/2025 08:20 ET Workstation ID: [id number] Transcribed By: Self Edit Transcribed Date: 05/22/2025 [...] Signed Date: 05/22/2025 08:20 ET Workstation ID: [id number] Transcribed By: Self Edit Transcribed Date: 05/22/2025 [...] Signed Date: 05/22/2025 08:14 ET Workstation ID: [id number] Transcribed By: Self Edit Transcribed Date: 05/22/2025 [...] Signed Date: 05/22/2025 08:14 ET Workstation ID: [id number] Transcribed By: Self Edit Transcribed Date: 05/22/2025 [...] Signed Date: 05/22/2025 08:23 ET Workstation ID: [id number] Transcribed By: Self Edit Transcribed Date: 05/22/2025 [...] ordislocation. -------- FINAL REPORT -------- Dictated By: Karols Jones Dictated Date: 05/22/2025 08:21 ET Assigned Physician: Karlos Jones Reviewed and Electronically Signed By: Karlos Jones Signed Date: 05/22/2025 08:23 ET Workstation ID: [id number] Transcribed By: Self Edit Transcribed Date: 05/22/2025 08:21 ET us Aashish Anaya MD IMG XR PROCEDURES Final Result * ECG-Annotated (05/10/2025) Only the most recent of2 resultswithin the time period is included. us Provider Onbase MD ECG ORDERABLES Final Result * XR Toes 2+ Views Left (05/08/2025 3:44 PM EST) Anatomical Region Laterality Modality Lower Extremities, Toes Left [facility] 05/08/2025 3:53 PM EST Impressions [...] Signed Date: 05/08/2025 15:58 ET Workstation ID: [id number] Transcribed By: Self Edit Transcribed Date: 05/08/2025 [...] Signed Date: 05/08/2025 15:58 ET Workstation ID: [id number] Transcribed By: Self Edit Transcribed Date: 05/08/2025 [...] Signed Date: 05/08/2025 15:46 ET Workstation ID: [id number] Transcribed By: Self Edit Transcribed Date: 05/08/2025 [...] Signed Date: 05/08/2025 15:46 ET Workstation ID: [id number] Transcribed By: Self Edit Transcribed Date: 05/08/2025 [...] Signed Date: 05/08/2025 15:26 ET Workstation ID: [id number] Transcribed By: Self Edit Transcribed Date: 05/08/2025 [...] Signed Date: 05/08/2025 15:26 ET Workstation ID: [id number] Transcribed By: Self Edit Transcribed Date: 05/08/2025 15:17 ET us Ava Souza MD [facility] CT PROCEDURES Final Result * Troponin I high sensitivity (05/08/2025 12:27 PM EST) [facility] High Sensitivity Troponin I 5 <=54 ng/L LAB CHEMISTRY METHOD 05/08/2025 1:43 PM [facility] Blood Venous blood specimen / Unknown Venipuncture / Unknown 05/08/2025 12:27 PM EST 05/08/2025 1:15 PM EST [facility] - 05/08/2025 1:43 PM EST High levels of biotin in samples may falsely decrease hsTroponin values. Use caution when interpreting hsTroponin results in patients taking biotin who exhibit renal impairment (eGFR <60) or in patients taking more than 20 mg/day of biotin. Ava Souza MD LAB BLOOD ORDERABLES Final Resul t [facility] [address] [place] [address], * (ABNORMAL) CBC auto differential (05/08/2025 12:27 PM EST) Only the most recent of2 resultswithin the time period is included. [facility] WBC 6.3 4.8 - 10.8 K/mcL LAB HEMETOLOGY METHOD 05/08/2025 1:22 PM [facility] RBC 4.70 3.80 - 4.80 M/mcL LAB HEMETOLOGY METHOD 05/08/2025 1:22 PM [facility] Hemoglobin 13.2 11.5 - 16.0 g/dL LAB HEMETOLOGY METHOD 05/08/2025 1:22 PM [facility] Hematocrit 41.7 35.0 - 47.0 % LAB HEMETOLOGY METHOD 05/08/2025 1:22 PM [facility] MCV 88.5 79.0 - 98.0 FL LAB HEMETOLOGY METHOD 05/08/2025 1:22 PM [facility] MCH 28.0 27.0 - 32.0 pcg LAB HEMETOLOGY METHOD 05/08/2025 1:22 PM [facility] MCHC 31.7(L) 32.0 - 37.0 g/dL LAB HEMETOLOGY METHOD 05/08/2025 1:22 PM [facility] RDW 14.7 11.0 - 15.0 % LAB HEMETOLOGY METHOD 05/08/2025 1:22 PM [facility] Platelets 272 130 - 400 K/mcL LAB HEMETOLOGY METHOD 05/08/2025 1:22 PM [facility] MPV 11.5(H) 7.0 - 11.0 FL LAB HEMETOLOGY METHOD 05/08/2025 1:22 PM [facility] NRBC 0.0 <1.0 % LAB HEMETOLOGY METHOD 05/08/2025 1:22 PM [facility] NRBC Absolute 0.00 <0.10 K/mcL LAB HEMETOLOGY METHOD 05/08/2025 1:22 PM [facility] Neutrophils Relative 58.9 % LAB HEMETOLOGY METHOD 05/08/2025 1:22 PM [facility] Lymphocytes Relative 29.7 % LAB HEMETOLOGY METHOD 05/08/2025 1:22 PM [facility] Monocytes Relative 7.6 % LAB HEMETOLOGY METHOD 05/08/2025 1:22 PM [facility] Eosinophils Relative 2.7 % LAB HEMETOLOGY METHOD 05/08/2025 1:22 PM [facility] Basophils Relative 0.8 % LAB HEMETOLOGY METHOD 05/08/2025 1:22 PM [facility] Immature Granulocytes Relative 0.3 % LAB HEMETOLOGY METHOD 05/08/2025 1:22 PM [facility] Neutrophils Absolute 3.72 1.50 - 7.00 K/mcL LAB HEMETOLOGY METHOD 05/08/2025 1:[address] [facility] Lymphocytes Absolute 1.88 1.00 - 5.00 K/[facility] LAB HEMETOLOGY METHOD 05/08/2025 1:[address] [facility] Monocytes Absolute 0.48 0.20 - 1.00 K/[facility] LAB HEMETOLOGY METHOD 05/08/2025 1:[address] [facility] Eosinophils Absolute 0.17 0.00 - 0.50 K/[facility] LAB HEMETOLOGY METHOD 05/08/2025 1:[address] [facility] Basophils Absolute 0.05 0.00 - 0.20 K/[facility] LAB HEMETOLOGY METHOD 05/08/2025 1:22 PM [facility] Immature Granulocytes Absolute 0.02 0.00 - 0.03 K/[facility] LAB HEMETOLOGY METHOD 05/08/2025 1:22 PM [facility] Blood Venous blood specimen / Unknown Venipuncture / Unknown 05/08/2025 12:27 PM EST 05/08/2025 1:14 PM EST us Ava Souza MD LAB BLOOD ORDERABLES Final Resul t [facility] [address] [place] [address], * (ABNORMAL) Comprehensive Metabolic Panel (CMP) (05/08/2025 12:27 PM EST) Sodium 141 133 - 145 mmol/L LAB CHEMISTRY METHOD 05/08/2025 1:[address] [facility] Potassium 4.4 3.5 - 5.5 mmol/L LAB CHEMISTRY METHOD 05/08/2025 1:[address] [facility] Comment:Hemolysis present Chloride 108 96 - 110 mmol/L LAB CHEMISTRY METHOD 05/08/2025 1:[address] [facility] CO2 29 21 - 32 mmol/L LAB CHEMISTRY METHOD 05/08/2025 1:49 PM [facility] Anion Gap 4 3 - 11 LAB CHEMISTRY METHOD 05/08/2025 1:49 PM [facility] Glucose 171(H) 70 - 100 mg/dL LAB CHEMISTRY METHOD 05/08/2025 1:49 PM [facility] BUN 18 5 - 25 mg/dL LAB CHEMISTRY METHOD 05/08/2025 1:49 PM [facility] Creatinine 0.77 0.50 - 1.10 mg/dL LAB CHEMISTRY METHOD 05/08/2025 1:49 PM [facility] eGFR 84 >=60 mL/min/1. 73m2 LAB CHEMISTRY METHOD 05/08/2025 1:49 PM [facility] Comment:Calculation based on the Chronic Kidney Disease Epidemiology Collaboration (CKD-EPI) equation refit without adjustment for race. BUN/Creatinine Ratio 23.4 LAB CHEMISTRY METHOD 05/08/2025 1:49 PM [facility] Calcium 9.0 8.5 - 10.5 mg/dL LAB CHEMISTRY METHOD 05/08/2025 1:49 PM [facility] AST (SGOT) 18 10 - 42 unit/L LAB CHEMISTRY METHOD 05/08/2025 1:49 PM [facility] Comment:Hemolysis present ALT (SGPT) 18 10 - 60 unit/L LAB CHEMISTRY METHOD 05/08/2025 1:49 PM [facility] Alkaline Phosphatase 88 42 - 121 unit/L LAB CHEMISTRY METHOD 05/08/2025 1:49 PM [facility] Total Protein 7.1 6.0 - 8.0 g/dL LAB CHEMISTRY METHOD 05/08/2025 1:49 PM [facility] Albumin 3.4 3.2 - 5.0 g/dL LAB CHEMISTRY METHOD 05/08/2025 1:49 PM [facility] Total Bilirubin 0.3 0.0 - 1.4 mg/dL LAB CHEMISTRY METHOD 05/08/2025 1:[address] [facility] Blood Venous blood specimen / Unknown Venipuncture / Unknown 05/08/2025 12:27 PM EST 05/08/2025 1:14 PM EST us Ava Souza MD LAB BLOOD ORDERABLES Final Resul t Performing Organization Address City/[facility]/ZIP Co de Phone Number [facility] [address] [place] [address], [place] [phone] * 12-Lead ECG (05/08/2025 12:21 PM EST) Only the most recent of2 resultswithin the time period is included. Ventricular Rate ECG 78 BPM GEMUSE Atrial Rate 78 BPM GEMUSE P-R Interval 194 ms GEMUSE QRS Duration 84 ms GEMUSE Q-T Interval 406 ms GEMUSE QTc 462 ms GEMUSE P Wave Commerce 63 degrees GEMUSE R Commerce -18 degrees GEMUSE T Commerce 41 degrees GEMUSE ECG Interpretation Normal sinus rhythm with sinus arrhythmia Normal ECG When compared with ECG of 30-APR-2025 17:39, No significant change was found Confirmed by SAVI THOMAS ([id number]) on 05/08/2025 6:56:15 PM GEMUSE 05/08/2025 12:2 1 PM EST 05/08/2025 6:56 PM EST us Ava Souza MD ECG ORDERABLES Final Result Performing Organization Address City/[facility]/ZIP Co de Phone Number GEMUSE * (ABNORMAL) Urinalysis with reflex microscopic (04/30/2025 8:08 PM EDT) Pathologist [facility] Specific [place] Urine 1.026 1.003 - 1.030 LAB URINALYSIS - AUTOMATED METHOD 04/30/2025 8:[address] [facility] pH, Urine 5.5 5.0 - [...] - AUTOMATED METHOD 04/30/2025 8:[address] [facility] Urine Urine specimen obtained by clean catch procedure / Unknown Non-blood Collection / Unknown 04/30/2025 8:08 PM EDT 04/30/2025 8:20 PM EDT Mook Irizarry MD LAB URINE ORDERABLES Final Result [facility] [address] [place] [address], [place] [phone] * Mercedes urine culture tube (04/30/2025 8:08 PM EDT) Extra Tube Hold for add-ons. 04/30/2025 10:[address] [facility] Comment:Auto resulted. Urine Urine specimen obtained by clean catch procedure / Unknown 04/30/2025 8:08 PM EDT 04/30/2025 8:20 PM EDT René Jamil MD LAB URINE ORDERABLES Elenita l Result Performing Organization Address [facility]/ZIP Co de Phone Number [facility] [address] [place] [address], [place] [phone] * XR Foot 3+ Views Left (04/30/2025 [...] Signed Date: 04/30/2025 20:14 ET Workstation ID: [id number] Transcribed By: Self Edit Transcribed Date: 04/30/2025 [...] Signed Date: 04/30/2025 20:14 ET Workstation ID: [id number] Transcribed By: Self Edit Transcribed Date: 04/30/2025 [...] Signed Date: 04/30/2025 20:07 ET Workstation ID: [id number] Transcribed By: Self Edit Transcribed Date: 04/30/2025 [...] Signed Date: 04/30/2025 20:07 ET Workstation ID: [id number] Transcribed By: Self Edit Transcribed Date: 04/30/2025 20:07 ET us Mook Irizarry MD IMG XR PROCEDURES Final Res ult * (ABNORMAL) Basic metabolic panel (04/30/2025 5:52 PM EDT) Sodium 139 133 - 145 mmol/L LAB CHEMISTRY METHOD 04/30/2025 6:[address] [facility] Potassium 3.9 3.5 - 5.5 mmol/L LAB CHEMISTRY METHOD 04/30/2025 6:[address] [facility] Chloride 104 96 - 110 mmol/L LAB CHEMISTRY METHOD 04/30/2025 6:[address] [facility] CO2 32 21 - 32 mmol/L LAB CHEMISTRY METHOD 04/30/2025 6:[address] [facility] Anion Gap 3 3 - 11 LAB CHEMISTRY METHOD 04/30/2025 6:[address] [facility] Glucose 133(H) 70 - 100 mg/dL LAB CHEMISTRY METHOD 04/30/2025 6:[address] [facility] BUN 22 5 - 25 mg/dL LAB CHEMISTRY METHOD 04/30/2025 6:[address] [facility] Creatinine 0.67 0.50 - 1.10 mg/dL LAB CHEMISTRY METHOD 04/30/2025 6:[address] [facility] eGFR 95 >=60 mL/min/1. 73m2 LAB CHEMISTRY METHOD 04/30/2025 6:[address] [facility] Comment:Calculation based on the Chronic Kidney Disease Epidemiology Collaboration (CKD-EPI) equation refit without adjustment for race. BUN/Creatinine Ratio 32.8 LAB CHEMISTRY METHOD 04/30/2025 6:[address] [facility] Calcium 9.4 8.5 - 10.5 mg/dL LAB CHEMISTRY METHOD 04/30/2025 6:[address] [facility] Blood Venous blood specimen / Unknown Venipuncture / Unknown 04/30/2025 5:52 PM EDT 04/30/2025 5:55 PM EDT us Mook Irizarry MD LAB BLOOD ORDERABLES Final Result [facility] [address] [place] [address], * (ABNORMAL) Lipid panel with reflex to direct LDL (11/12/2024 6:15 AM EDT) Cholesterol 203(H) 0 - 200 mg/dL LAB CHEMISTRY METHOD 11/12/2024 8:[address] [facility] Triglycerides 80 0 - 150 mg/dL LAB CHEMISTRY METHOD 11/12/2024 8:[address] [facility] HDL 71 >=40 mg/dL LAB CHEMISTRY METHOD 11/12/2024 8:[address] [facility] LDL Calculated 116(H) 0 - 100 mg/dL LAB CHEMISTRY METHOD 11/12/2024 8:[address] [facility] VLDL Cholesterol Randy 16 mg/dL LAB CHEMISTRY METHOD 11/12/2024 8:[address] [facility] Non HDL Chol. (LDL+VLDL) 132 <145 mg/dL LAB CHEMISTRY METHOD 11/12/2024 8:[address] [facility] Chol/HDL Ratio 2.9 0.0 - 4.4 LAB CHEMISTRY METHOD 11/12/2024 8:[address] [facility] Blood Venous blood specimen / Unknown Venipuncture / Unknown 11/12/2024 6:15 AM EDT 11/12/2024 6:58 AM EDT us Jojo GREENWOOD LAB BLOOD ORDERABLES Final Re sult 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 Care Teams Junior Bookkeeper Relationship Specialty Start Date End Date Henrique Soler MD [address] [place] [address] Dr [address] [place], [place] PCP - General Internal Medicine 06/18/14
== END 2025-06-27 09:49 | disposition home or self-care (01) ==
LOC: HO.HMCH 09:08
PROVIDERS: PCP Internal Medicine; Visit Provider Internal Medicine
DX: S63.609A Unspecified sprain of unspecified thumb, initial encounter (principal); R42 Dizziness and giddiness

== ENCOUNTER → 2025-06-27 15:26 | Outpatient (BNV) | payer OTHER, SELFPAY | PROVIDERS: PCP Internal Medicine; Visit Provider Radiology Diagnostic Radiology | DX: M19.041 Primary osteoarthritis, right hand (principal) | CPT/HCPCS: 73130 ==